=== PATIENT | female | born 1955 | race Caucasian/White ===

== ENCOUNTER → 2016-11-18 | Outpatient (CLI) | payer OTHER ==
[~2016-11-18] MED LIST: ASPI-321 OR; ATOR-26 PO; CARV25TA PO; CITA40TA12 PO; CLOP1TAB15 PO; FERR1TAB13 PO; GEMF600T3 PO; HYDR12.55 PO; ISOS60TA25 PO; LISI-729 PO; METF500T PO; NTRGSL/4 UT; PANT40TA PO; SERT1TAB68 PO; SERT25TA PO; ZCR40 PO; [UNRECOGNIZED DRUG - CODE] PO; [UNRECOGNIZED DRUG - CODE] PO
== END | disposition home or self-care (01) ==
LOC: C.PAPS 11:14
PROVIDERS: ATTEND Physician Assistant
DX: Z01.419 Encounter for gynecological examination (general) (routine) without abnormal findings (principal); N95.2 Postmenopausal atrophic vaginitis

== ENCOUNTER 2016-11-22 18:57 | Emergency (ER) | payer OTHER ==
[~2016-11-22] VITALS: Ht 157.5 cm; Wt 71.8 kg
[~2016-11-22 18:57] MED LIST changes: -ATOR-26 PO; -CITA40TA12 PO; -HYDR12.55 PO; -LISI-729 PO; -PANT40TA PO
[2016-11-22 19:09] VITALS: Ht 157.5 cm; Wt 71.8 kg
--- NOTE | 2016-11-22 19:24 | EMERGENCY ROOM VISIT NOTE ---
History Report prepared by Giovani: Reina Moore Under the Supervision of: Dr. Akin Jin M.D. First contact with patient: 19:11 Chief Complaint: CARDIAC ASSESSMENT Stated Complaint: WEAKNESS, DIAPHORETIC History of Present Illness The patient is a 61 year old female who presents to the Emergency Room with complaints of needing a cardiac assessment. She was brought to the ED via EMS. She reports she started to feel "faint, weak and really hot" earlier this evening while at the [employer] in [place]. She does not believe she lost consciousness and states she feels somewhat better here in the ED. She admits she drank approximately 1/2 of an alcoholic beverage this evening. EMS administered IV saline in the field and notes the patient was diaphoretic when they arrived. The patient admits to having a pacemaker/defibrillator in place currently for a history of atrial fibrillation. She reports she felt "fine" earlier today and has been eating and drinking fluids normally. She denies any chest pain or abdominal pain. Source of History: patient Onset: [employer] Position: other (global) Timing: resolved Associated Symptoms: + diaphoresis, + fatigue, + weakness, No LOC, No abdominal pain, No chest pain Review of Systems All systems have been listed, reviewed, and are negative other than those previously mentioned. Please see Additional Medical History Sheet. Past Medical & Surgical Medical Problems: (1) Alcohol Abuse-Unspec (2) Anxiety State Nos (3) Atrial Fibrillation (4) Cardiac Arrest (5) Coron Atheroscler Nos Type Vessel, [place] Or [place] (6) Depressive Disorder Nec (7) Diab Syeda Wo Compl, Type Ii Or Unspec Type, Not Uncntrld (8) Hyperlipidemia Nec/Nos (9) Hypertension Nos (10) Lumbago (11) Old Myocardial Infarct (12) Unstable angina Surgical Problems: (1) History of cholecystectomy Social History Problems: (1) Congestive Heart Failure Nos Family History Patient reports no known family medical history. Social History Smoking Status: Never Smoker Alcohol Use: occasionally Drug Use: none Marital Status: Housing Status: lives with family Occupation Status: unemployed Current/Historical Medications Scheduled Aspirin (Aspirin Adult Low Strengt), 81 MG OR DAILY Atorvastatin (Lipitor), 80 MG PO DAILY Carvedilol (Coreg), 25 MG PO BIDM Citalopram Hydrobromide (Celexa), 40 MG PO DAILY Clopidogrel (Plavix), 75 MG PO DAILY Gemfibrozil (Lopid), 600 MG PO BID Hydrochlorothiazide (Hydrochlorothiazide), 12.5 TAB PO DAILY Isosorbide Mononitrate Ext Rel (Imdur Ext Rel), 120 MG PO QAM Lisinopril (Zestril), 5 MG PO DAILY Metformin Hcl (Glucophage), 500 MG PO BID Nitroglycerin (Nitrostat), 0.4 MG UT PRN Pantoprazole (Protonix), 40 MG PO DAILY Sertraline (Zoloft), 25 MG PO DAILY Sertraline Hcl (Zoloft), 100 MG PO DAILY Scheduled PRN Hydroxyzine Hcl (hydrOXYzine), 25 MG PO TID PRN for UNDECIDED Allergies Coded Allergies: Latex1 -Allergic Contact Dermititis (Verified Allergy, Mild, HIVES, ) Adhesives (Verified Allergy, Unknown, `, 06/05/16) Penicillin V (Verified Allergy, Unknown, 0, 06/05/16) Aspirin (Verified Adverse Reaction, Mild, ` STOMACH UPSET WITH 325 MG TABLET, 06/05/16) Physical Exam Vital Signs Date Time Temp Pulse Resp B/P Pulse Ox O2 Delivery O2 Flow Rate FiO2 11/22/16 21:58 36.5 61 21 118/60 96 11/22/16 21:46 118/60 11/22/16 21:40 106/52 11/22/16 21:19 61 21 96 11/22/16 21:16 91/56 11/22/16 21:14 62 12 96 11/22/16 21:13 97/54 11/22/16 21:09 62 25 97 11/22/16 21:04 63 19 97 11/22/16 21:01 102/54 11/22/16 20:59 62 20 97 11/22/16 20:54 68 16 97 11/22/16 20:53 112/59 11/22/16 20:44 68 22 94 11/22/16 20:43 119/75 11/22/16 20:42 88/53 11/22/16 20:41 109/55 11/22/16 20:40 61 18 109/55 82 88/53 72 119/75 11/22/16 20:39 62 15 98 11/22/16 20:34 62 17 98 11/22/16 20:33 99 Room Air 11/22/16 20:29 103/58 11/22/16 20:27 67 14 99 11/22/16 20:22 63 14 97 11/22/16 20:07 60 15 96 11/22/16 20:02 65 12 98 11/22/16 20:01 102/54 11/22/16 19:57 61 16 97 11/22/16 19:52 60 15 97 11/22/16 19:47 68 21 95 11/22/16 19:46 100/54 11/22/16 19:42 60 16 95 11/22/16 19:41 99/54 11/22/16 19:37 63 20 89/51 98 11/22/16 19:36 90/57 11/22/16 19:32 61 14 96 11/22/16 19:31 94/50 11/22/16 19:27 62 15 96 11/22/16 19:26 103/61 11/22/16 19:26 93 Room Air 11/22/16 19:24 97/62 11/22/16 19:22 56 17 100/54 96 11/22/16 19:17 61 15 96 11/22/16 19:14 93 Room Air 11/22/16 19:12 62 19 95 11/22/16 19:09 36.5 71 18 115/59 93 Room Air 11/22/16 19:07 63 25 94 11/22/16 19:06 66 11/22/16 19:04 115/59 Physical Exam GENERAL: Patient awake, alert, oriented x 3. Patient follows commands. Patient does not appear toxic. Patient is adequately hydrated and well- nourished. SKIN: No erythema, pallor, cyanosis or rash HEENT: Normal head, pupils equal, reactive to light and accommodation. Ears normal. Upper dentures in place. Oral cavity and posterior pharynx appear otherwise normal. Neck: Without adenopathy, no neck vein distention. LUNGS: Clear to auscultation. No wheezes, no rales, no rhonchi. HEART: No murmurs. No gallops. No rubs. Pacemaker in left upper chest. ABDOMEN: Well healed midline abdominal scar. No masses, no rebound, no hepatomegaly or splenomegaly. EXTREMITIES: No signs of trauma. No pedal or pretibial edema. No calf or thigh tenderness. NEUROLOGIC: Cranial nerves II-XII within normal limits. No gross motor sensory function deficits. Medical Decision & Procedures ER Provider Diagnostic Interpretation: This X-Ray was reviewed and interpreted by myself and the radiologist. CHEST 2 VIEWS ROUTINE IMPRESSION: Chronic and postoperative change. No acute process. Electronically signed by: Kit Burt M.D. 11/22/2016 8:25 PM Laboratory Results 11/22/16 19:22 11/22/16 19:22 Test 11/22/16 19:22 11/22/16 20:50 Red Blood Count 3.79 M/uL (4.2-5.4) Mean Corpuscular Volume 84.7 fL (80-100) Mean Corpuscular Hemoglobin 29.6 pg (25-34) Mean Corpuscular Hemoglobin Concent 34.9 g/dl (32-36) RDW Standard Deviation 39.3 fL (36.4-46.3) RDW Coefficient of Variation 12.7 % (11.5-14.5) Mean Platelet Volume 10.2 fL (7.4-10.4) Anion Gap 12.0 mmol/L (3-11) Est Creatinine Clear Calc Drug Dose 55.1 ml/min Estimated GFR () 72.0 Estimated GFR (Non- 62.2 BUN/Creatinine Ratio 11.6 (10-20) Calcium Level 7.8 mg/dl (8.5-10.1) Troponin I < 0.015 ng/ml (0-0.045) Urine Color YELLOW Urine Appearance CLEAR (CLEAR) Urine pH 5.5 (4.5-7.5) Urine Specific [place] 1.010 (1.000-1.030) Urine Protein NEG (NEG) Urine Glucose (UA) NEG (NEG) Urine Ketones NEG (NEG) Urine Occult Blood NEG (NEG) Urine Nitrite POS (NEG) Urine Bilirubin NEG (NEG) Urine Urobilinogen NEG (NEG) Urine Leukocyte Esterase SMALL (NEG) Urine WBC (Auto) 5-10 /hpf (0-5) Urine RBC (Auto) 0-4 /hpf (0-4) Urine Hyaline Casts (Auto) 1-5 /lpf (0-5) Urine Epithelial Cells (Auto) 20-30 /lpf (0-5) Urine Bacteria (Auto) 4+ (NEG) Laboratory results as stated above per my review. Medications Administered Medications (Trade) Dose Ordered Sig/Alo Route Start Time Stop Time Status Last Admin Dose Admin Sodium Chloride (Nss 1000ml) 1,000 ml @ 1,000 mls/hr Q1H ONCE IV 11/22/16 19:45 11/22/16 20:44 DC 11/22/16 19:45 1,000 MLS/HR ECG Indication: weakness Rate (beats per minute): 63 Rhythm: other (paced rhythm) Findings: no acute ischemic change, no ectopy ED Course 1911: Past medical records reviewed. The patient was evaluated in room B9. A complete history and physical examination was performed. 1944: NSS 1000 ml @ 1000 mls/hr IV. 2004: I reevaluated the patient. She is feeling about the same and getting 1 liter of fluids. 2112: I reevaluated the patient. She is about the same. Her blood pressure is still relatively low. 2154: Upon reevaluation, the patient appeared to have improvement of her symptoms. I discussed today's findings with the patient. She verbalized agreement of the treatment plan. She was discharged home. Medical Decision Etiologies such as cardiac ischemia, aortic dissection, pulmonary embolism, pneumonia, pneumothorax, musculoskeletal, infections, pericarditis, myocarditis , esophageal rupture, gastrointestinal, dehydration, arrhythmia, metabolic disorder, accidental overdose as well as others were entertained. Multiple labs, EKG and imaging were obtained. Please see above. A urine culture is pending. The patient was given IV fluids. Blood pressure was rechecked multiple times. He BP remains slightly low but she was not orthostatic. An ambulatory trial was successful and the patient was able to walk around the emergency department without feeling lightheaded. I'm concerned that she may have accidentally taken more blood pressure medication but in either case I will take her off the lisinopril for now. The patient will require follow-up by her family physician within the near future to recheck her blood pressure. The patient has no evidence of an acute neurologic event or an acute cardiac event. Impression Primary Impression: Hypotension due to medication Scribe Attestation The scribe's documentation has been prepared under my direction and personally reviewed by me in its entirety. I confirm that the note above accurately reflects all work, treatment, procedures, and medical decision making performed by me. Departure Information Dispostion Home / Self-Care Referrals Tg Solis PA-C (PCP) Patient Instructions [facility] Additional Instructions Stop lisinopril. Follow-up with your family physician within the next 4 days. REST Continue your other medications as prescribed.
[2016-11-22 19:26] VITALS: O2SAT 93
[2016-11-22 19:32] LABS: HEMATOCRIT 32.1 % (37-47); MEAN CELL VOLUME 84.7 fL (80-100); MEAN CORPUSCULAR HEMOGLOBIN 29.6 pg (25-34); MEAN CORPUSCULAR HGB CONC 34.9 g/dl (32-36); MEAN PLATELET VOLUME 10.2 fL (7.4-10.4); PLATELET COUNT 136 K/uL (130-400); RED BLOOD COUNT 3.79 M/uL (4.2-5.4); WHITE BLOOD COUNT 4.74 K/uL (4.8-10.8)
[2016-11-22] MEDS ORDERED: SODIUM CHLORIDE 0.9% 1000ML 1,000 ML IV ONE (19:45)
[2016-11-22 19:50] LABS: BLOOD UREA NITROGEN 11 mg/dl (7-18); BUN/CREATININE RATIO 11.6 (10-20); CALCIUM 7.8 mg/dl (8.5-10.1); CARBON DIOXIDE 21 mmol/L (21-32); CHLORIDE 109 mmol/L (98-107); CREATININE 0.97 mg/dl (0.60-1.20); GLUCOSE 122 mg/dl (70-99); POTASSIUM 3.4 mmol/L (3.5-5.1); SODIUM 142 mmol/L (136-145)
[2016-11-22] MEDS ORDERED: HYDR12.55 PO (20:22)
[2016-11-22] MEDS ORDERED: CITA40TA12 PO (20:25)
--- NOTE | 2016-11-22 20:26 | DIAGNOSTIC IMAGING REPORT ---
CHEST 2 VIEWS ROUTINE CLINICAL HISTORY: CHEST PAIN dyspnea COMPARISON STUDY: 04/20/2016 FINDINGS: Mild emphysematous change. Chronic bilateral fibrotic change. Permanent bipolar cardiac pacemaker/defibrillator. IMPRESSION: Chronic and postoperative change. No acute process. Electronically signed by: Kit Burt M.D. 11/22/2016 8:25 PM Dictated Date/Time: 11/22/2016 8:24 PM
[2016-11-22] MEDS ORDERED: ATOR-26 PO (20:29)
[2016-11-22] MEDS ORDERED: LISI-729 PO (20:32)
[2016-11-22] MEDS ORDERED: PANT40TA PO (20:38)
[2016-11-22 21:06] LABS: MANUAL MICROSCOPIC REQUIRED? NO; REVIEW REQ? NO; URINE APPEARANCE CLEAR (CLEAR); URINE BILIRUBIN NEG (NEG); URINE COLOR YELLOW; URINE EPITHELIAL CELL AUTO 20-30 /lpf (0-5); URINE NITRITE POS (NEG); URINE PH 5.5 (4.5-7.5); UROBILINOGEN NEG (NEG); ZZUR CULT IF INDIC CLEAN CATCH YES
[2016-11-22 21:58] VITALS: BP 118/60; PULSE 61; TEMP 36.5; O2SAT 96
== END 2016-11-22 21:59 | disposition home or self-care (01) ==
LOC: EDBD 18:57 → C.EDB 18:58
DX: I10 Essential (primary) hypertension (principal); F41.9 Anxiety disorder, unspecified; I48.91 Unspecified atrial fibrillation; I46.9 Cardiac arrest, cause unspecified; E11.9 Type 2 diabetes mellitus without complications; E78.5 Hyperlipidemia, unspecified; I25.2 Old myocardial infarction; Z79.82 Long term (current) use of aspirin

== ENCOUNTER → 2016-12-03 | Outpatient (CLI) | payer OTHER ==
[~2016-12-03] MED LIST changes: +ATOR-26 PO; +CITA40TA12 PO; -FERR1TAB13 PO; +HYDR12.55 PO; +LISI-729 PO; +PANT40TA PO; -ZCR40 PO; -[UNRECOGNIZED DRUG - CODE] PO
--- NOTE | 2016-12-03 15:47 | MAMMOGRAPHY REPORT ---
BILATERAL DIGITAL SCREENING MAMMOGRAM WITH CAD: 12/03/2016 CLINICAL HISTORY: Routine screening. Patient has no complaints. TECHNIQUE: Bilateral CC, MLO and repeat left MLO views with more anterior compression were obtained. Current study was also evaluated with a Computer Aided Detection (CAD) system. COMPARISON: Comparison is made to exams dated: 11/08/2015 mammogram and 04/15/2011 mammogram - [facility]. BREAST COMPOSITION: There are scattered areas of fibroglandular density in both breasts. FINDINGS: A pacemaker projects over the left superior breast and pectoralis muscle on the MLO view. There are mild vascular calcifications and benign rim calcifications bilaterally. Stable asymmetry in the 12:00 right breast. No new suspicious mass, architectural distortion or cluster of microcal cifications is seen. IMPRESSION: ACR BI-RADS CATEGORY 1: NEGATIVE There is no mammographic evidence of malignancy. A 1 year screening mammogram is recommended. The p atient will receive written notification of the results. Approximately 10% of breast cancers are not detected with mammography. A negative mammographic repor t should not delay biopsy if a clinically suggestive mass is present. Mary Garcia M.D. ay/:12/03/2016 13:47:10 Contact Clerk: Salima HARRIS(Nury)(Ishmael), [facility] letter sent: Normal 1/2 BI-RADS Code: ACR BI-RADS Category 1: Negative
== END | disposition home or self-care (01) ==
LOC: C.MAMM 10:01
PROVIDERS: ATTEND Physician Assistant
DX: Z12.31 Encounter for screening mammogram for malignant neoplasm of breast (principal)

== ENCOUNTER → 2016-12-23 | Outpatient (CLI) | payer OTHER | END | disposition home or self-care (01) | LOC: C.MAMM 12:32 | PROVIDERS: ATTEND Physician Assistant | DX: E28.39 Other primary ovarian failure (principal); M85.88 Other specified disorders of bone density and structure, other site; M81.0 Age-related osteoporosis without current pathological fracture ==

== ENCOUNTER 2017-09-29 11:12 | Emergency (ER) | payer OTHER ==
[~2017-09-29] VITALS: Ht 157.5 cm; Wt 67.8 kg
[2017-09-29 11:17] VITALS: TEMP 36.4; O2SAT 95; Ht 157.5 cm; Wt 67.8 kg
[2017-09-29] MEDS ORDERED: ONDANSETRON INJ 2 MG/ML 2 ML VIAL IV STA (11:37)
[2017-09-29] MEDS ORDERED: SODIUM CHLORIDE 0.9% 1000ML 1,000 ML IV STA ×2 (11:37)
[2017-09-29 11:53] LABS: BASO % 0.4 %; BASO ABS # 0.03 K/uL (0-0.2); EOS % 3.8 %; EOS ABS # 0.28 K/uL (0-0.5); HEMATOCRIT 35.5 % (37-47); HEMOGLOBIN 12.2 g/dL (12.0-16.0); IG# 0.02 K/uL (0.00-0.02); LYMPH % 12.6 %; LYMPH ABS # 0.93 K/uL (1.2-3.4); MEAN CELL VOLUME 85.1 fL (80-100); MEAN CORPUSCULAR HEMOGLOBIN 29.3 pg (25-34); MEAN CORPUSCULAR HGB CONC 34.4 g/dl (32-36); MEAN PLATELET VOLUME 10.3 fL (7.4-10.4); MONO % 7.2 %; MONO ABS # 0.53 K/uL (0.11-0.59); NEUT % 75.7 %; NEUT ABS # 5.57 K/uL (1.4-6.5); PLATELET COUNT 198 K/uL (130-400); RED CELL DISTRIBUTION WIDTH SD 39.8 fL (36.4-46.3); WHITE BLOOD COUNT 7.36 K/uL (4.8-10.8)
[2017-09-29 12:05] LABS: PTT PATIENT 23.3 SECONDS (21.0-31.0)
[2017-09-29 12:09] LABS: ALBUMIN 3.5 gm/dl (3.4-5.0); ALT/SGPT 23 U/L (12-78); BLOOD UREA NITROGEN 12 mg/dl (7-18); CALCIUM 9.2 mg/dl (8.5-10.1); CARBON DIOXIDE 24 mmol/L (21-32); CREATININE 1.11 mg/dl (0.60-1.20); GLUCOSE 157 mg/dl (70-99); POTASSIUM 3.8 mmol/L (3.5-5.1); SODIUM 134 mmol/L (136-145)
--- NOTE | 2017-09-29 12:11 | DIAGNOSTIC IMAGING REPORT ---
CHEST ONE VIEW PORTABLE CLINICAL HISTORY: 62 years-old Female presenting with EVALUATE ALTERED MENTAL STATUS/WEAKNESS. TECHNIQUE: Portable upright AP view of the chest was obtained. COMPARISON: 11/22/2016. FINDINGS: Left subclavian implanted cardiac defibrillator with leads to the right atrium, right ventricular apex, and coronary sinus. Additional abandoned right ventricular apex pacer wire. Atherosclerosis of aortic arch. Cardiac silhouette top normal in size. Mild pulmonary vascular prominence with diffusely coarsened lung markings similar to prior exam. No superimposed opacity. No large effusion or pneumothorax. Osseous structures normal. Upper abdomen normal. IMPRESSION: 1. Top normal cardiac size with pulmonary vascular prominence and coarsened lung markings similar to prior exam. This could suggest mild volume overload or chronic lung disease. No superimposed infiltrate to suggest pneumonia. Electronically signed by: Neftali Zamarripa M.D. 09/29/2017 12:09 PM Dictated Date/Time: 09/29/2017 12:08 PM
[2017-09-29] MEDS ORDERED: SERT50TA PO (12:19)
[2017-09-29] MEDS ORDERED: EZET10TA63 PO (12:19)
[2017-09-29] MEDS ORDERED: HYDR1CAP85 PO (12:19)
[2017-09-29 12:20] LABS: ALKALINE PHOSPHATASE 104 U/L (45-117); AST/SGOT 18 U/L (15-37); TOTAL PROTEIN 7.6 gm/dl (6.4-8.2)
[2017-09-29] MEDS ORDERED: OPTIRAY 320 IV PRN (12:45)
--- NOTE | 2017-09-29 13:57 | DIAGNOSTIC IMAGING REPORT ---
CT ANGIOGRAM OF THE CHEST CLINICAL HISTORY: Chest discomfort. Sudden onset of nausea and dizziness. COMPARISON STUDY: 06/14/2009 TECHNIQUE: Following the IV administration of 119 mL of Optiray-320, CT angiogram of the thorax was performed from the thoracic inlet to the lung bases utilizing the pulmonary embolus protocol. Images are reviewed in the axial, sagittal, and coronal planes. IV contrast was administered without complication. MIP imaging was performed. A dose lowering technique was utilized adhering to the principles of ALARA. CT DOSE: 414.08 mGycm FINDINGS: There is a multinodular thyroid gland. There is a left subclavian pacer/defibrillator present. No pathologically enlarged axillary mediastinal or hilar lymph nodes were visualized. There was no evidence of thoracic aortic dilatation. There are coronary artery calcifications present. There were no pulmonary artery filling defects to indicate acute pulmonary embolism. No pleural effusions are visualized. There is an 8 mm fat-containing right lower lobe pulmonary nodule, unchanged from 2008. This is felt to be benign. There are patchy bilateral pulmonary airspace opacities, and there is septal interstitial edema. The findings likely represent pulmonary edema superimposed on interstitial lung disease, or an acute bilateral pneumonitis, superimposed on chronic lung disease. Clinical and radiographic follow-up is recommended. IMPRESSION: 1. No evidence of acute pulmonary embolism 2. Interstitial thickening/edema with patchy airspace opacities. The findings likely represent either pulmonary edema superimposed on chronic interstitial lung disease, or an acute bilateral pneumonitis superimposed on chronic interstitial lung disease. Clinical and radiographic follow-up is recommended. Electronically signed by: Vivek Alexander M.D. 09/29/2017 1:56 PM Dictated Date/Time: 09/29/2017 1:49 PM
--- NOTE | 2017-09-29 15:47 | EMERGENCY ROOM VISIT NOTE ---
History Report prepared by Giovani: Nissa Calderón Under the Supervision of: Dr. Janes Pedro D.O. First contact with patient: 11:28 Chief Complaint: NAUSEA Stated Complaint: NEAR SYNCOPE Nursing Triage Summary: pt presents to ed via bls. pt was shopping and had sudden onset of nausea and dizziness. pt sat down - pt denies any falling or loc. pt reports she continues to feel "woozy" at this time. pt has pacemaker/defibrillator. History of Present Illness The patient is a 62 year old female who presents to the Emergency Room with complaints of a sudden onset of nausea and dizziness beginning just prior to arrival. The patient states she was shopping and walking around when she started to feel nauseous which was followed by feeling lightheaded. The patient states her nausea slightly resided on her way to the ED but when she started getting blood work she started to get very nauseous again. The patient has a history of a sudden cardiac arrest. She has a [employer] pacemaker/ defibrillator. The patient has a history of diabetes. She is unsure of how her glucose levels have been. Pt denies headache, change in vision, fevers, chest pain, shortness of breath, abdominal pain, weakness, vomiting, diarrhea, pain with urination, and melena. Patient denies hypertension, hyperlipidemia, CAD, history of sudden at a young age, and smoking. Patient denies swelling of calves, recent trips, history of immobilization or recent surgery, prior history of DVT, hemoptysis, history of malignancy, history of smoking, or control/estrogen use. Source of History: patient Onset: just prior to arrival Position: other (generalized) Quality: other (nausea and lightheadedness) Timing: other (sudden) Associated Symptoms: + nausea, No fevers, No chest pain, No SOB, No vomiting , No urinary symptoms, No weakness, No numbness Review of Systems See HPI for pertinent positives & negatives. A total of 10 systems reviewed and were otherwise negative. Past Medical & Surgical Medical Problems: (1) Alcohol Abuse-Unspec (2) Anxiety State Nos (3) Atrial Fibrillation (4) Cardiac Arrest (5) Coron Atheroscler Nos Type Vessel, [place] Or Graft (6) Depressive Disorder Nec (7) Diab Syeda Wo Compl, Type Ii Or Unspec Type, Not Uncntrld (8) Hyperlipidemia Nec/Nos (9) Hypertension Nos (10) Lumbago (11) Old Myocardial Infarct (12) Unstable angina Surgical Problems: (1) History of cholecystectomy Social History Problems: (1) Congestive Heart Failure Nos Family History Patient reports no known family medical history. Social History Smoking Status: Never Smoker Alcohol Use: occasionally Drug Use: none Marital Status: Housing Status: lives with family Occupation Status: unemployed Current/Historical Medications Scheduled Atorvastatin (Lipitor), 80 MG PO DAILY Carvedilol (Coreg), 25 MG PO BIDM Clopidogrel (Plavix), 75 MG PO DAILY Ezetimibe (Zetia), 10 MG PO DAILY Hydrochlorothiazide (Hydrochlorothiazide), 25 TAB PO DAILY Isosorbide Mononitrate Ext Rel (Imdur Ext Rel), 120 MG PO QAM Metformin Hcl (Glucophage), 500 MG PO BID Nitroglycerin (Nitrostat), 0.4 MG UT PRN Pantoprazole (Protonix), 40 MG PO DAILY Sertraline (Zoloft), 50 MG PO DAILY Scheduled PRN Hydroxyzine Pamoate (Vistaril), 25 MG PO TID PRN for Anxiety/Agitation Allergies Coded Allergies: Latex1 -Allergic Contact Dermititis (Verified Allergy, Mild, HIVES, ) Adhesives (Verified Allergy, Unknown, `, 09/29/17) Penicillin V (Verified Allergy, Unknown, 0, 09/29/17) Aspirin (Verified Adverse Reaction, Mild, ` STOMACH UPSET WITH 325 MG TABLET, 09/29/17) Physical Exam Vital Signs Date Time Temp Pulse Resp B/P (MAP) Pulse Ox O2 Delivery O2 Flow Rate FiO2 09/29/17 14:52 70 18 110/57 96 Room Air 09/29/17 14:05 77 16 115/58 09/29/17 13:08 84 16 104/57 09/29/17 12:45 76 16 109/57 76 118/60 80 115/68 09/29/17 11:19 68 09/29/17 11:17 36.4 67 18 106/66 95 Room Air 09/29/17 11:17 95 Room Air Physical Exam GENERAL: Sitting up in bed, alert, disheveled appearing, well nourished, no distress, non-toxic EYE EXAM: normal conjunctiva. PERRL and EOM's intact. OROPHARYNX: no exudate, no erythema, lips, buccal mucosa, and tongue normal and mucous membranes are moist NECK: supple, no nuchal rigidity, no adenopathy, non-tender LUNGS: Clear to auscultation. Normal chest wall mechanics CHEST: Pacemaker in left upper chest wall. HEART: no murmurs, S1 normal and S2 normal ABDOMEN: abdomen soft, non-tender, normo-active bowel sounds, no masses, no rebound or guarding. BACK: Back is symmetrical on inspection and there is no deformity, no midline tenderness, no CVA tenderness. SKIN: no rashes and no bruising UPPER EXTREMITIES: upper extremities are grossly normal. LOWER EXTREMITIES: No pitting edema. NEURO EXAM: Normal sensorium, cranial nerves II-XII intact, normal speech, no weakness of arms, no weakness of legs. No drift. Finger to nose intact. Gross sensation intact. Medical Decision & Procedures ER Provider Diagnostic Interpretation: Radiology results as stated below per my review and the radiologist's interpretation: CT ANGIOGRAM OF THE CHEST FINDINGS: There is a multinodular thyroid gland. There is a left subclavian pacer/defibrillator present. No pathologically enlarged axillary mediastinal or hilar lymph nodes were visualized. There was no evidence of thoracic aortic dilatation. There are coronary artery calcifications present. There were no pulmonary artery filling defects to indicate acute pulmonary embolism. No pleural effusions are visualized. There is an 8 mm fat-containing right lower lobe pulmonary nodule, unchanged from 2009. This is felt to be benign. There are patchy bilateral pulmonary airspace opacities, and there is septal interstitial edema. The findings likely represent pulmonary edema superimposed on interstitial lung disease, or an acute bilateral pneumonitis, superimposed on chronic lung disease. Clinical and radiographic follow-up is recommended. IMPRESSION: 1. No evidence of acute pulmonary embolism 2. Interstitial thickening/edema with patchy airspace opacities. The findings likely represent either pulmonary edema superimposed on chronic interstitial lung disease, or an acute bilateral pneumonitis superimposed on chronic interstitial lung disease. Clinical and radiographic follow-up is recommended. Electronically signed by: Vivek Alexander M.D. CHEST ONE VIEW PORTABLE FINDINGS: Left subclavian implanted cardiac defibrillator with leads to the right atrium, right ventricular apex, and coronary sinus. Additional abandoned right ventricular apex pacer wire. Atherosclerosis of aortic arch. Cardiac silhouette top normal in size. Mild pulmonary vascular prominence with diffusely coarsened lung markings similar to prior exam. No superimposed opacity. No large effusion or pneumothorax. Osseous structures normal. Upper abdomen normal. IMPRESSION: 1. Top normal cardiac size with pulmonary vascular prominence and coarsened lung markings similar to prior exam. This could suggest mild volume overload or chronic lung disease. No superimposed infiltrate to suggest pneumonia. Electronically signed by: Neftali Zamarripa M.D. Laboratory Results 09/29/17 11:30 Red Blood Count 4.17, Mean Corpuscular Volume 85.1, Mean Corpuscular Hemoglobin 29.3, Mean Corpuscular Hemoglobin Concent 34.4, Mean Platelet Volume 10.3, Neutrophils (%) (Auto) 75.7, Lymphocytes (%) (Auto) 12.6, Monocytes (%) (Auto) 7.2, Eosinophils (%) (Auto) 3.8, Basophils (%) (Auto) 0.4, Neutrophils # (Auto) 5.57, Lymphocytes # (Auto) 0.93, Monocytes # (Auto) 0.53, Eosinophils # (Auto) 0.28, Basophils # (Auto) 0.03 09/29/17 11:30 Test 09/29/17 11:30 09/29/17 14:47 White Blood Count 7.36 K/uL (4.8-10.8) Red Blood Count 4.17 M/uL (4.2-5.4) Hemoglobin 12.2 g/dL (12.0-16.0) Hematocrit 35.5 % (37-47) Mean Corpuscular Volume 85.1 fL (80-100) Mean Corpuscular Hemoglobin 29.3 pg (25-34) Mean Corpuscular Hemoglobin Concent 34.4 g/dl (32-36) Platelet Count 198 K/uL (130-400) Mean Platelet Volume 10.3 fL (7.4-10.4) Neutrophils (%) (Auto) 75.7 % Lymphocytes (%) (Auto) 12.6 % Monocytes (%) (Auto) 7.2 % Eosinophils (%) (Auto) 3.8 % Basophils (%) (Auto) 0.4 % Neutrophils # (Auto) 5.57 K/uL (1.4-6.5) Lymphocytes # (Auto) 0.93 K/uL (1.2-3.4) Monocytes # (Auto) 0.53 K/uL (0.11-0.59) Eosinophils # (Auto) 0.28 K/uL (0-0.5) Basophils # (Auto) 0.03 K/uL (0-0.2) RDW Standard Deviation 39.8 fL (36.4-46.3) RDW Coefficient of Variation 13.0 % (11.5-14.5) Immature Granulocyte % (Auto) 0.3 % Immature Granulocyte # (Auto) 0.02 K/uL (0.00-0.02) Prothrombin Time 10.1 SECONDS (9.0-12.0) Prothromb Time International Ratio 1.0 (0.9-1.1) Activated Partial Thromboplast Time 23.3 SECONDS (21.0-31.0) Partial Thromboplastin Ratio 0.9 D-Dimer 530 ug/L FEU (0-500) Anion Gap 9.0 mmol/L (3-11) Est Creatinine Clear Calc Drug Dose 46.2 ml/min Estimated GFR () 60.8 Estimated GFR (Non- 52.4 BUN/Creatinine Ratio 11.2 (10-20) Calcium Level 9.2 mg/dl (8.5-10.1) Magnesium Level 1.6 mg/dl (1.8-2.4) Total Bilirubin 0.9 mg/dl (0.2-1) Direct Bilirubin 0.2 mg/dl (0-0.2) Aspartate Amino Transf (AST/SGOT) 18 U/L (15-37) Alanine Aminotransferase (ALT/SGPT) 23 U/L (12-78) Alkaline Phosphatase 104 U/L (45-117) Total Protein 7.6 gm/dl (6.4-8.2) Albumin 3.5 gm/dl (3.4-5.0) Thyroid Stimulating Hormone (TSH) 3.010 uIu/ml (0.300-4.500) Troponin I < 0.015 ng/ml (0-0.045) Laboratory results per my review. Medications Administered Medications (Trade) Dose Ordered Sig/Alo Route Start Time Stop Time Status Last Admin Dose Admin Sodium Chloride 1,000 ml @ 999 mls/hr Q1H1M STAT IV 09/29/17 11:37 09/29/17 12:37 DC 09/29/17 11:48 999 MLS/HR Sodium Chloride 1,000 ml @ 999 mls/hr Q1H1M STAT IV 09/29/17 11:37 09/29/17 12:37 DC 09/29/17 11:48 999 MLS/HR Ondansetron HCl (Zofran Inj) 4 mg NOW STAT IV 09/29/17 11:37 09/29/17 11:39 DC 09/29/17 11:48 4 MG ECG Per My Interpretation Indication: nausea Rate (beats per minute): 69 Rhythm: other (atrail paced, flipped T-wave in anterior and lateral leads) Findings: Q waves (Septal), left axis deviation, other (left axis de) Comparison ECG Date: 11/22/16 Change: Septal Q-wave is new ED Course ED COURSE: Vital signs were reviewed and showed normal The patients medical record was reviewed The above diagnostic studies were performed and reviewed. ED treatments and interventions as stated above. 1129: The patient was evaluated in room B11B. A complete history and physical examination was performed. 1137: Ordered Zofran Inj 4 mg IV, Sodium Chloride 1000 ml @ 999 mls/hr IV, Sodium Chloride 1000 ml @ 999 mls/hr IV. 1302: [employer] hearing aid technician identified no issued with the patient's pacer. 1338: The patient is at CT. 1430: I reviewed the patient's case with Dr. Dailey-Cardiology. He recommends sending the patient home for outpatient follow up. 1545: Upon reevaluation, the patient is resting comfortably.I discussed my findings with the patient and she understands and agrees with the treatment plan. Based on the patients age, coexisting illnesses, exam and lab findings the decision to treat as an outpatient was made. The patient remained stable while under my care. The patient appeared well at the time of discharge. Medical Decision Differential diagnosis includes etiologies such as benign positional vertigo, dehydration, hypovolemia, anemia, tumor, infection, hypoglycemia, electrolyte abnormalities, cardiac sources, intracerebral event, toxicologic, neurologic, as well as others were entertained. Patient is a 62-year-old female who presents the ER for further nausea associated with near syncopal episode. Patient notes that she was out shopping and became very nauseous. At that time she almost passed out. She had another episode of this while in the ER. EKGs were unchanged from previous and had cardiology review these along with her case. CBC along with BMP, LFTs, bilirubin, TSH and troponin 2 were negative. D-dimer was elevated. CT of the chest showed questionable infiltrate/pneumonia versus pulmonary edema. Patient has absolutely no respiratory symptoms. She has no new cough or change in sputum. Will not treat at this time without a leukocytosis fever or change in respiratory symptoms. Recommended a repeat chest x-ray within the next 2-3 days. At this time with an unremarkable pacer interrogation, 2 negative troponins, review of case with cardiology I favor that the majority of her symptoms were vasovagal in nature. She has absolutely no abdominal pain. Patient was discharged follow-up with PCP as an outpatient. Discussed with Pt concerning signs and symptoms to watch out for. Pt was instructed to follow up with their PCP and discussed with the patient their option to return to the ED at anytime for persistent or worsening symptoms. The appropriate anticipatory guidance and out-patient management, including indications for return to the emergency department, were explained at length to the patient and understood. Medication Reconcilliation Current Medication List: was personally reviewed by me Blood Pressure Screening Patient's blood pressure: Normal blood pressure Consults Time Called: 1415 Consulting Physician: Dr. SantacruzCardiology Returned Call: 1430 I reviewed the patient's case with Dr. SantacruzCardiology. He recommends sending the patient home for outpatient follow up. Impression Primary Impression: Near syncope Additional Impression: Nausea Scribe Attestation The scribe's documentation has been prepared under my direction and personally reviewed by me in its entirety. I confirm that the note above accurately reflects all work, treatment, procedures, and medical decision making performed by me. Departure Information Dispostion Home / Self-Care Referrals Tg Solis PA-C (PCP) Forms HOME CARE DOCUMENTATION FORM, IMPORTANT VISIT INFORMATION Patient Instructions ED Nausea Vomiting, ED Near Syncope Vasovagal, [facility] Additional Instructions Please follow up with your primary care doctor with in the next 24 hours. Any worsening of your symptoms, please return to the ED immediately. This includes any fevers greater than 100.4, worsening pain, chest pain, shortness breath, persistent nausea, vomiting, unable to eat or drink, or any other concerning signs or symptoms from your standpoint. Problem Qualifiers
[2017-09-29 15:55] VITALS: BP 125/65; PULSE 76; O2SAT 98
== END 2017-09-29 15:54 | disposition home or self-care (01) ==
LOC: C.EDB 11:12 → EDBD 11:12 → C.EDB 15:54
DX: R55 Syncope and collapse (principal); R11.0 Nausea; F41.9 Anxiety disorder, unspecified; I48.91 Unspecified atrial fibrillation; F32.9 Major depressive disorder, single episode, unspecified; E11.9 Type 2 diabetes mellitus without complications; E78.5 Hyperlipidemia, unspecified; I10 Essential (primary) hypertension; I25.2 Old myocardial infarction; Z91.040 Latex allergy status; Z88.0 Allergy status to penicillin; Z88.8 Allergy status to other drugs, medicaments and biological substances

== ENCOUNTER → 2017-10-12 | Outpatient (CLI) | payer OTHER ==
[~2017-10-12] MED LIST changes: -ASPI-321 OR; -CITA40TA12 PO; +EZET10TA63 PO; -GEMF600T3 PO; +HYDR1CAP85 PO; -LISI-729 PO; -SERT1TAB68 PO; -SERT25TA PO; +SERT50TA PO; -[UNRECOGNIZED DRUG - CODE] PO
--- NOTE | 2017-10-12 13:15 | DIAGNOSTIC IMAGING REPORT ---
CHEST 2 VIEWS ROUTINE HISTORY: ABNORMAL CHEST CT,ABNORMAL CHEST XRAY COMPARISON: Chest 09/29/2017. FINDINGS: No pneumothorax. No pleural effusions. The heart is normal in size. Diffuse interstitial thickening persists. This is most pronounced within the right upper lobe. Poststernotomy. Left-sided pacemaker/defibrillator. No new focal lung consolidations. 6 mm nodular density within the right lung base is again noted. IMPRESSION: No change in the mild diffuse interstitial thickening. No new focal lung consolidations. No evidence for pulmonary edema. Electronically signed by: John Wilkerson M.D. 10/12/2017 1:14 PM Dictated Date/Time: 10/12/2017 1:12 PM
== END | disposition home or self-care (01) ==
LOC: C.RAD 12:17
PROVIDERS: ATTEND Physician Assistant
DX: R91.8 Other nonspecific abnormal finding of lung field (principal)

== ENCOUNTER → 2017-10-13 | Outpatient (CLI) | payer OTHER ==
--- NOTE | 2017-10-13 15:29 | DIAGNOSTIC IMAGING REPORT ---
SOFT TISS HEAD/NECK-THYROID CLINICAL HISTORY: 62 years-old Female presenting with THYROID NODULE ON CT. TECHNIQUE: Real-time grayscale and color Doppler ultrasound imaging of the thyroid and base of the neck was performed. COMPARISON: None. FINDINGS: Right lobe: Heterogeneous echotexture. The right lobe of the thyroid measures 4.3 x 2.0 x 2.2 cm. No parenchymal hyperemia. Index nodule(s) enumerated below: 1. Heterogeneous partially hyperechoic partially hypoechoic well-defined 2.3 x 1.3 x 1.8 cm lower pole nodule with extensive internal vascularity. Hyperechoic foci may indicate calcifications (intermediate suspicion). Left lobe: Heterogeneous echotexture. The left lobe of the thyroid measures 4.0 x 1.4 x 1.3 cm. No parenchymal hyperemia. Index nodule(s) enumerated below: 1. Well-defined hypoechoic 0.7 x 0.5 x 0.5 cm nodule (intermediate suspicion). Isthmus: The isthmus measures 2 mm in thickness. No parenchymal hyperemia. No nodules. IMPRESSION: Dominant right thyroid lobe nodule meets [place] [employer] criteria for fine-needle aspiration of this has not previously been performed. Electronically signed by: Neftali Zamarripa M.D. 10/13/2017 3:28 PM Dictated Date/Time: 10/13/2017 3:25 PM
--- NOTE | 2017-10-13 15:35 | DIAGNOSTIC IMAGING REPORT ---
ULTRASOUND OF THE CAROTID ARTERIES CLINICAL HISTORY: Near syncope. Hyperlipidemia. COMPARISON STUDY: No priors. TECHNIQUE: Real-time, grayscale, and color Doppler sonography of the carotid arteries is performed. Images are reviewed in the transverse and longitudinal planes. FINDINGS: Blood pressure in the right arm measures 136/81 and blood pressure in the left arm measures 136/80. The carotid arteries are patent bilaterally and demonstrate antegrade flow. There is mild atherosclerotic plaque identified. Normal doppler arterial waveforms are seen throughout. Velocity measurements are listed below. Common carotid peak systolic velocity (cm/sec): RIGHT: 53 LEFT: 51 ICA proximal peak systolic velocity (cm/sec): RIGHT: 55 LEFT: 49 ICA mid peak systolic velocity (cm/sec): RIGHT: 70 LEFT: 51 ICA distal peak systolic velocity (cm/sec): RIGHT: 76 LEFT: 65 ICA/CC peak systolic ratio: RIGHT: 1.2 LEFT: 1.3 Antegrade flow was shown in the vertebral arteries. The external carotid arteries are patent. IMPRESSION: 1. There is no sonographic evidence of hemodynamically significant stenosis in the right or left carotid arterial system. 2. Antegrade flow is shown in the vertebral arteries. Electronically signed by: Sb German M.D. 10/13/2017 3:34 PM Dictated Date/Time: 10/13/2017 3:33 PM
== END | disposition home or self-care (01) ==
LOC: C.ULTR 13:59
PROVIDERS: ATTEND Physician Assistant
DX: E04.2 Nontoxic multinodular goiter (principal); E78.2 Mixed hyperlipidemia; R55 Syncope and collapse

== ENCOUNTER → 2017-10-27 | Outpatient (CLI) | payer OTHER ==
--- NOTE | 2017-10-27 11:51 | Discharge Instructions ---
Discharge Instructions Procedure Procedure Date: Oct 27, 2017. Reason for visit: Rt Thyroid Nodule. Discharge Discharge Date: Oct 27, 2017. Discharge Diagnosis: Right thyroid nodule Instructions Activity Recommendations: No limitations Return to School/Work: no limitations Recommended Home Diet: Resume Previous Diet Provider Instructions: Ultrasound guided fine-needle aspiration of a right lobe nodule is performed with 4 passes utilizing 25 gauge needles. The procedure was well tolerated and without immediate complication. ACTIVITY RECOMMENDATIONS: * Rest today. * Resume regular activity in one day. MEDICATIONS: * May take Tylenol or Ibuprofen as needed for pain. DIET: * Resume previous diet. SPECIAL CARE INSTRUCTIONS: Call your doctor if: * Temperature above 101 degrees F. * Pain not relieved by pain medicine ordered. * Increased drainage or redness from incision. * Notify your doctor with any questions or concerns. Call your doctor or go to the nearest Emergency Department if you experience: * Increased chest pain or shortness of breath. FOLLOW UP VISIT: Follow-up with Referring Physician as scheduled. Allergies Coded Allergies: Latex1 -Allergic Contact Dermititis (Verified Allergy, Mild, HIVES, ) Adhesives (Verified Allergy, Unknown, `, 09/29/17) Penicillin V (Verified Allergy, Unknown, 0, 09/29/17) Aspirin (Verified Adverse Reaction, Mild, ` STOMACH UPSET WITH 325 MG TABLET, 09/29/17) [place] Recommendations: Call your doctor if: * Temperature above 101 degrees * Pain not relieved by pain medicine ordered * There is increased drainage or redness from any incision * You have any unanswered questions or concerns. Your Doctors Instructions noted above were prepared by provider Sb German. Patient Signature Section: Patient Instructions Signature Page Codi Painter Patient (or Guardian) Signature/Date: I have read and understand the instructions given to me by my caregivers. Caregiver/RN/Doctor Signature/Date: The above-named patient and/or guardian has received patient instructions on this date. + Original Patient Signature Page (only) stays with chart. Please make copy for patient.
--- NOTE | 2017-10-27 13:32 | DIAGNOSTIC IMAGING REPORT ---
ULTRASOUND-GUIDED FINE-NEEDLE ASPIRATION THYROID CLINICAL HISTORY: Right lobe thyroid nodule. COMPARISON STUDY: Thyroid ultrasound dated 10/13/2017.. PROCEDURE: The risks, benefits, and alternatives to the procedure were discussed with the patient. Written informed consent was obtained. The patient was placed supine in ultrasound, and the complex 2.3 x 1.8 x 1.3 cm nodule in the right lobe of the thyroid was localized by ultrasound and selected for fine needle aspiration. The right neck was prepped and draped in the usual sterile fashion. The nodule was aspirated under ultrasound guidance with 4 passes utilizing 25-gauge needles. Specimens were reviewed by the pathologist in real-time. The patient tolerated the procedure well and left the department in satisfactory condition. IMPRESSION: Completed fine-needle aspiration of a complex right lobe thyroid nodule as above. Electronically signed by: Sb German M.D. 10/27/2017 1:31 PM Dictated Date/Time: 10/27/2017 1:30 PM
== END | disposition home or self-care (01) ==
LOC: C.ULTR 10:40
PROVIDERS: ATTEND Physician Assistant
DX: E04.2 Nontoxic multinodular goiter (principal)

== ENCOUNTER 2021-03-12 15:37 | Inpatient (IN) ==
[2021-03-12 16:17] LABS: Basophils # (auto) 0.01 K/uL (0-0.2); Basophils % (auto) 0.1 %; Eosinophils # (auto) 0.02 K/uL (0-0.5); Eosinophils % (auto) 0.2 %; Hematocrit (blood only) 35.8 % (37-47); Hemoglobin 12.2 g/dL (12.0-16.0); Immature Granulocytes # (auto) 0.02 K/uL (0.00-0.02); Immature Granulocytes % (auto) 0.2 %; Lymphocytes # (auto) 0.34 K/uL (1.2-3.4); Lymphocytes % (auto) 3.7 %; Mean Corpuscular Hemoglobin 28.4 pg (25-34); Mean Corpuscular Hgb Conc 34.1 g/dL (32-36); Mean Corpuscular Volume 83.4 fL (80-100); Mean Platelet Volume 10.2 fL (7.4-10.4); Monocytes # (auto) 0.45 K/uL (0.11-0.59); Monocytes % (auto) 4.9 %; Neutrophils # (auto) 8.28 K/uL (1.4-6.5); Neutrophils % (auto) 90.9 %; Platelet Count 135 K/uL (130-400); RDW Coefficient of Variation 13.1 % (11.5-14.5); RDW Standard Deviation 39.4 fL (36.4-46.3); Red Blood Count 4.29 M/uL (4.2-5.4); White Blood Count 9.12 K/uL (4.8-10.8)
[2021-03-12 16:30] LABS: Albumin Level 3.3 gm/dl (3.4-5.0); BUN Creatinine Ratio 13.5 (10-20); Calcium 9.2 mg/dl (8.5-10.1); Creatinine Clr Calc Pharmacy 47.6 ml/min; Est GFR (African American) 68.3 ml/min; Potassium 3.8 mmol/L (3.5-5.1)
[2021-03-12 16:32] LABS: Albumin Globulin Ratio 0.7 (0.9-2); Bilirubin,Total 1.7 mg/dl (0.2-1); Globulin 4.4 gm/dl (2.5-4.0); Total Protein 7.7 gm/dl (6.4-8.2)
[2021-03-12] MEDS ORDERED: ONDANSETRON INJ 2 MG/ML 2 ML VIAL IV STA (17:33)
[2021-03-12] MEDS ORDERED: MoRPHine SULFATE 4 MG/ML 1 ML CARP\\VIAL IV STA ×2 (17:33→19:55)
--- NOTE | 2021-03-12 18:18 | CT Scan Report ---
CT OF THE LUMBAR SPINE CLINICAL HISTORY: Back pain following fall. COMPARISON STUDY: Lumbar spine radiographs November 18, 2019. TECHNIQUE: Helical axial images of the lumbar spine were obtained. Sagittal and coronal reconstruct ions were viewed. Automated exposure control was utilized for the study. A dose lowering technique was utilized adhering to the principles of ALARA. FINDINGS: For purposes of numbering on this exam, the L5-S1 disc space is assigned to axial image 264 of 327. A 4 mm calculus within the lower pole of the left kidney is incidentally noted. There is non specific left perinephric stranding with slight thickening of the Gerota's fascia. There is no hydron ephrosis. No suspicious osseous lesions are present. Note is made of old L2, L3 and L4 compression fr actures which are similar to lumbar spine radiographs of November 08, 2019. There is an acute appearing L1 fracture with 60% loss of vertebral body height. Posterior cortex is disrupted with 6 mm of retropuls ion. This results in moderate central canal stenosis at this level. Fracture extend to the anterior a spect of the bilateral pedicles. No additional acute fractures are noted. Note is made of possible sm all amount of posterior epidural hemorrhage, partially imaged on this exam. This is most pronounced a t the T12-L1 level and measures approximately 3 mm in AP thickness. The posterior epidural fat appear s displaced. IMPRESSION: 1. Acute L1 burst fracture with 60% loss of vertebral body height and 6 mm of retropulsion which resu lts in moderate central canal stenosis. Spine surgical consultation is recommended. Possible small po sterior epidural hematoma, suboptimally assessed by CT, at the T12-L1 level, partially imaged on this exam. If no contraindications, this can be assessed with MRI. 2. Old L2, L3 and L4 compression fractures which are unchanged. 3. Nonspecific left perinephric stranding. Differential considerations include an infectious process or recently passed calculus; however, no hydronephrosis. 4 mm left renal calculus. ACT 112: Negative or not required by law. Electronically signed by: Tejinder Archer M.D. 03/12/2021 6:16 PM
--- NOTE | 2021-03-12 19:38 | History & Physical Report ---
Date of Service March 12, 2021 Assessment & Plan (1) Fracture of L1 vertebra: Plan: -Patient admitted for a burst L1 fracture noted on CT scan. -Neurologically intact -Place on morphine WARP HAULER due to severe pain. -ADDED miralax and senna for bowel regimen. (2) Coronary artery disease: Plan: PCI to LAD in May 2020 kelsea hold AM dose of plavix for possible procedue (3) ICD (implantable cardioverter-defibrillator), biventricular, in situ: Plan: as noted (4) Ischemic cardiomyopathy: Plan: EF has improved. resume home meds. carvedilol and isosor bide mononitrate (5) Hypothyroidism: Plan: continue home levothyroxine, appears stable. (6) AF (paroxysmal atrial fibrillation): Plan: not on anticoagulation. will resume beta jus. (7) Depression: Plan: resume home medication (8) Diabetes mellitus, type 2: Plan: latest a1c was 6.4 will recheck in am will monitor fasting blood sugars Taking metformin at home. will hold for now. History of Present Illness Chief Complaint: back pain Primary Care Provider: LIEN Hanson This is a pleasnt 65 yo female a history of sick sinus syndrome S/P biventricular ICD, paroxysmal atrial fibrillation, coronary artery disease s/p PCI of LAD and RCA, resolved cardiomyopathy, hypertension, type 2 diabetes, and hypothyroidism. Patient suffered a mechanical wall while slipping on her dogs urine at home. She fell on her back and had signifcant pain. This prompted her to come to the ER. Patient reports pain is severe and requires morphine. Pt denies LOC, headache, fevers, chills, diaphoresis, visual changes, neck pain, chest pain, breathing difficulties, nausea, vomiting, abdominal pain, bowel or bladder complaints, melena, hematochezia, urinary symptoms, numbness, weakness, lymphadenopathy, rash, or other complaints. Allergies Allergy/AdvReac Type Severity Reaction Status Date / Time latex Allergy Intermediate HIVES Verified 03/12/21 20:21 adhesive Allergy Mild SKIN Verified 03/12/21 20:21 IRRITATION penicillin V Allergy Unknown Unknown Verified 03/12/21 20:21 aspirin AdvReac Mild STOMACH Verified 03/12/21 20:21 UPSET Home Medications Medication Instructions Recorded Confirmed Type carvedilol 6.25 mg tablet 6.25 mg PO BIDM 06/16/18 03/12/21 History ergocalciferol (vitamin D2) 1,250 50,000 unit PO WK 06/16/18 03/12/21 History mcg (50,000 unit) capsule (Vitamin D2) nitroglycerin 0.4 mg sublingual 0.4 mg SUBLINGUAL DIRECTED PRN 06/16/18 03/12/21 History tablet (Nitrostat) metformin 500 mg tablet 500 mg PO BID 06/17/18 03/12/21 History magnesium oxide 400 mg PO BID 09/27/18 03/12/21 History aspirin 81 mg tablet,delayed 81 mg PO QAM 11/30/18 03/12/21 History release blood sugar diagnostic (OneTouch #10 ea 03/01/19 01/07/21 History Ultra Blue Test Strip) lancets (Tears for LifeTouch UltraSoft #50 ea 03/01/19 01/07/21 History Lancets) levothyroxine 50 mcg tablet 50 mcg PO DAILY #90 tab 03/01/19 03/12/21 History alendronate 70 mg tablet (Fosamax) 70 mg PO WEEKLY tab 03/28/19 03/12/21 History isosorbide mononitrate 120 mg 120 mg PO DAILY #30 tab 08/15/20 03/12/21 Rx tablet,extended release 24 hr clopidogrel 75 mg tablet (Plavix) 75 mg PO DAILY #90 tab 09/04/20 03/12/21 Rx atorvastatin 80 mg tablet 80 mg PO HS 03/12/21 03/12/21 History famotidine 20 mg tablet 20 mg PO DAILY 03/12/21 03/12/21 History hydroxyzine pamoate 25 mg capsule 25 mg PO DAILY PRN 03/12/21 03/12/21 History omeprazole 20 mg capsule,delayed 20 mg PO DAILY 03/12/21 03/12/21 History release oxybutynin chloride 5 mg tablet 5 mg PO BID 03/12/21 03/12/21 History sertraline 100 mg tablet 100 mg PO DAILY 03/12/21 03/12/21 History solifenacin 5 mg tablet (Vesicare) 5 mg PO DAILY 03/12/21 03/12/21 History Past Med/Surg History Medical History (Updated 03/12/21 @ 23:19 by Rusty Phillips) Acid reflux disease with ulcer AF (paroxysmal atrial fibrillation) Alcohol abuse, unspecified Anxiety Anxiety disorder Anxiety state, unspecified Atrial fibrillation CAD (coronary artery disease) Cancer SKIN CANCER Cardiac arrest Cardiomyopathy Congestive cardiomyopathy Congestive heart failure, unspecified Cor athrscl-uns vessel Coronary artery disease Depression Depressive disorder, not elsewhere classified Diabetes mellitus, type 2 Dysphagia, oropharyngeal phase Fecal incontinence GERD (gastroesophageal reflux disease) Goiter Celia's thyroiditis HLD (hyperlipidemia) Hypertension Hypothyroidism PT DENIES. Ischemic cardiomyopathy Lumbago Lumbar compression fracture Ocular hypertension, unspecified eye Old myocardial infarct Other and unspecified hyperlipidemia Postmenopausal atrophic vaginitis Subclinical hypothyroidism Type 2 diabetes mellitus Unknown whether patient has any health problems Urinary tract infection FREQUENT Surgical History History of appendectomy History of cardiac cath 1 STENT (2016 @ [facility]) History of cholecystectomy History of colonoscopy History of esophagogastroduodenoscopy (EGD) History of heart artery stent ADVISED TO BRING STENT CARD History of tonsillectomy S/P placement of cardiac pacemaker ~15-20 YEARS AGO. FOLLOWS WITH DR RUBI AND LAST CHECKED 4 MONTHS AGO Family History Mother Family history of diabetes mellitus Blind Hearing loss Hypertension Allergies Asthma Sister Family history of diabetes mellitus Coronary heart disease Father No problems noted. Denies family history of No family history of adverse response to anesthesia No family history of bleeding disorder Heart disease Cancer Stroke Social History Smoking Status: Never smoker Second Hand Exposure: No; Hx Alcohol Use: Yes Alcohol type: beer and hard liquor Alcohol Intake Frequency: 2-3 x/Week Hx Substance Use: No Preferred Language: Thai Communication Ability: Effective Shop Mechanic Required: No Beliefs That Will Affect Care: None marital status: Current Living Situation: Spouse How many Children do You have: 1 Feels Safe at Home: Yes Safety Concerns: Feels Safe At This Time Assistive Devices: Denture - Upper and Glasses Review of Systems Review of Systems: All systems reviewed & are unremarkable except as noted in HPI & below Physical Exam Constitutional: WD/WN, vitals as above Eyes: PERRL, conjunctivae normal, anicteric sclerae ENMT: external ear and nose normal, oropharynx normal Neck: trachea midline, no thyromegaly Respiratory: normal respiratory effort, lungs clear to auscultation Cardiovascular: RRR, no murmur, no edema Gastrointestinal (Abdomen): normal bowel sounds, soft, nontender, no hepatosplenomegaly Musculoskeletal: no cyanosis or clubbing, extremities motor strength 5/5 Skin: no rashes, warm and dry Neurologic: PERRL, EOMI, accommodation nl, no face palsy, no dysarthria Psychiatric: Orientation: alert, oriented to person, oriented to place and cooperative; + not oriented to time Lymphatic: no cervical or axillary lymphadenopathy Results & Data Results & Data ([facility]) Vital Signs (Past 12 Hours) Vital Signs Temp Pulse Pulse Resp BP BP Pulse Ox 03/12/21 17:25 79 22 183/116 H 94 03/12/21 15:25 37.0 C 90 20 179/84 H 95 PG Care Time/CCT Total # of Minutes Spent Total Time Spent with Patient: Total time spent is greater than 50% in coordination of care (as documented) at patient's floor/unit and/or counseling patient: Coding Level of Care Code 72439 Initial Inpt Care Lvl 3 Diagnoses Fracture of L1 vertebra S32.019A Coronary artery disease I25.10 ICD (implantable cardioverter-defibrillator), biventricular, in situ Z95.810 Ischemic cardiomyopathy I25.5 Hypothyroidism E03.8; E06.3 Hypothyroidism type: due to Celia's thyroiditis AF (paroxysmal atrial fibrillation) I48.0 Depression F32.9 Diabetes mellitus, type 2 E11.9 (1) Hypothyroidism Hypothyroidism type: due to Celia's thyroiditis Qualified Code(s): E03.8 - Other specified hypothyroidism; E06.3 - Autoimmune thyroiditis
[2021-03-12] MEDS ORDERED: MoRPHine SULFATE 4 MG/ML 1 ML CARP\\VIAL IV PRN (19:39)
[2021-03-12] MEDS ORDERED: MoRPHine SULFATE PCA 30 MG/30 ML IV PRN (19:52)
[2021-03-12] MEDS ORDERED: NALOXONE HCL 0.4 MG/1 ML VIAL/CARP IV PRN (19:52)
--- NOTE | 2021-03-12 21:21 | Emergency Department Note ---
Impression & Plan Fracture of L1 vertebra, Fall ED Provider Note INFORMANT: Patient ED PROVIDER(S): Elliott Dean MD CHIEF COMPLAINT: Back pain PLAN: Disposition: Admitted Condition: Good Outpatient prescription management: None Referral: None MEDICAL DECISION MAKING: Patient presented to emergency room because of an accidental fall. She had acute low back pain. She denied any other injury. She denied striking her head. She had no neck pain. Primary and secondary surveys were performed. She had midline low back pain. She was neurologically intact. She was given IV morphine and Zofran for pain control. The patient underwent imaging and blood work. She had an unremarkable CBC and chemistry panel. L1 burst fracture was noted on CT imaging. This showed retropulsion into the canal and mild associated hemorrhage. I did discuss this finding with Dr. Kofi Lindsey of orthopedic spine. He asked for the patient to be kept in bed, pain managed and admitted to internal medicine. He will need to likely perform an operative stabilization tomorrow. If the patient's condition deteriorates she should be reimaged and he should be notified. I did discuss the case with Dr. Phillips of the [facility] service. The patient was evaluated in the ER admitted for further management. Patient and were informed. They were pleased with the treatment. Triage Nursing notes reviewed and agree them. Vital Signs: reviewed and remarkable for no significant abnormalities Differential diagnosis: Musculoskeletal, disc herniation, fracture, metastatic disease, cord compression, discitis, sciatica, cauda equina, infection, aortic disease, renal colic, gastrointestinal, as well as other pathologies. Diagnostics interpreted by me: ECG: Twelve-lead ECG reveals sinus rhythm with first-degree block at 79 bpm. Left axis deviation, LVH. Septal Q waves. No ST elevation. Nonspecific ST. Cardiac Monitoring: Cardiac monitoring ordered by me: The patient was placed on continuous cardiac monitoring and observed. It revealed a normal sinus rhythm at 81 beats per minute without ectopy or evidence of dysrhythmia. Imaging studies: CT scan of the lumbar spine reveals a burst fracture of L1 with associated epidural blood and mild retropulsion into the canal with moderate stenosis. Old L2, L3, and L4 compression fractures noted. I refer you to the EMR for further details. HPI: The patient is a 65 year old female who presents to the Emergency Room with complaints of low back pain. This started just prior to arrival and is from an accidental fall. She slipped on a wet floor and landed on her back.. The patient also notes the following associated symptoms, none. The patient has found no relieving factors. Current pain is rated as 8/10. Pt denies LOC, headache, fevers, chills, diaphoresis, visual changes, neck pain, chest pain, breathing difficulties, nausea, vomiting, abdominal pain, bowel or bladder complaints, melena, hematochezia, urinary symptoms, numbness, weakness, lymphadenopathy, rash, or other complaints. ROS: See above HPI for pertinent positives & negatives. A total of 10 systems reviewed and were otherwise negative. PAST MEDICAL HISTORY:See Below , coronary artery disease, cardiomyopathy PAST SURGICAL HISTORY:See Below, cholecystectomy FAMILY HISTORY:See Below SOCIAL HISTORY:See Below, HOME MEDICATIONS:See Below ALLERGIES:See Below VITALS:See Below PHYSICAL EXAMINATION: GENERAL: Awake, alert, uncomfortable-appearing, in no distress HENT: Normocephalic, atraumatic. Oropharynx unremarkable. EYES: Normal conjunctiva. Sclera non-icteric. PERRLA. EOMI. NECK: Inspection normal. Non-tender. Supple. No nuchal rigidity. FROM. No masses. RESPIRATORY: Clear to auscultation. No wheezes. No rales. Normal respiratory effort. CARDIAC: Normal rate. Normal rhythm. No murmurs. No rubs. Extremities warm and well perfused. Pulses equal. No JVD. GI: Soft, non-distended. No tenderness to palpation. No rebound or guarding. No masses. RECTAL: Deferred. MUSCULOSKELETAL: Atraumatic. Chest examination reveals no tenderness. The back is tender in the low lumbar midline. There is no CVA tenderness to palpation. No joint edema. LOWER EXTREMITIES: Calves are equal size bilaterally and non-tender. No edema. No discoloration. NEURO: Normal sensorium. No sensory or motor deficits noted. No saddle anesthesia. SKIN: No rash or jaundice noted. Elliott Dean MD Past Med/Surg History Medical History Acid reflux disease with ulcer AF (paroxysmal atrial fibrillation) Alcohol abuse, unspecified Anxiety Anxiety disorder Anxiety state, unspecified Atrial fibrillation CAD (coronary artery disease) Cancer Cardiac arrest Cardiomyopathy Congestive cardiomyopathy Congestive heart failure, unspecified Cor athrscl-uns vessel Coronary artery disease Depression Depressive disorder, not elsewhere classified Diabetes mellitus, type 2 Dysphagia, oropharyngeal phase Fecal incontinence GERD (gastroesophageal reflux disease) Goiter Celia's thyroiditis HLD (hyperlipidemia) Hypertension Hypothyroidism Ischemic cardiomyopathy Lumbago Lumbar compression fracture Ocular hypertension, unspecified eye Old myocardial infarct Other and unspecified hyperlipidemia Postmenopausal atrophic vaginitis Subclinical hypothyroidism Type 2 diabetes mellitus Unknown whether patient has any health problems Urinary tract infection Surgical History History of appendectomy History of cardiac cath History of cholecystectomy History of colonoscopy History of esophagogastroduodenoscopy (EGD) History of heart artery stent History of tonsillectomy S/P placement of cardiac pacemaker Family History Mother Family history of diabetes mellitus Blind Hearing loss Hypertension Allergies Asthma Sister Family history of diabetes mellitus Coronary heart disease Father No problems noted. Denies family history of No family history of adverse response to anesthesia No family history of bleeding disorder Heart disease Cancer Stroke Social History Smoking Status: Never smoker Second Hand Exposure: No; Hx Alcohol Use: Yes Alcohol Intake Frequency: 2-3 x/Week Hx Substance Use: No Preferred Language: Finnish Communication Ability: Effective Senior Warehouse Clerk Required: No Beliefs That Will Affect Care: None marital status: Current Living Situation: Spouse How many Children do You have: 1 Feels Safe at Home: Yes Assistive Devices: Glasses Allergies Allergies Allergy/AdvReac Type Severity Reaction Status Date / Time latex Allergy Intermediate HIVES Verified 03/12/21 20:21 adhesive Allergy Mild SKIN Verified 03/12/21 20:21 IRRITATION penicillin V Allergy Unknown Unknown Verified 03/12/21 20:21 aspirin AdvReac Mild STOMACH Verified 03/12/21 20:21 UPSET Home Meds Home Medications Medication Instructions Recorded Confirmed carvedilol 6.25 mg tablet 6.25 mg PO BIDM 06/16/18 03/12/21 ergocalciferol (vitamin D2) 1,250 50,000 unit PO WK 06/16/18 03/12/21 mcg (50,000 unit) capsule (Vitamin D2) nitroglycerin 0.4 mg sublingual 0.4 mg SUBLINGUAL DIRECTED PRN 06/16/18 03/12/21 tablet (Nitrostat) metformin 500 mg tablet 500 mg PO BID 06/17/18 03/12/21 magnesium oxide 400 mg PO BID 09/27/18 03/12/21 aspirin 81 mg tablet,delayed 81 mg PO QAM 11/30/18 03/12/21 release blood sugar diagnostic (OneTouch #10 ea 03/01/19 01/07/21 Ultra Blue Test Strip) lancets (SoFiTouch UltraSoft #50 ea 03/01/19 01/07/21 Lancets) levothyroxine 50 mcg tablet 50 mcg PO DAILY #90 tab 03/01/19 03/12/21 alendronate 70 mg tablet (Fosamax) 70 mg PO WEEKLY tab 03/28/19 03/12/21 atorvastatin 80 mg tablet 80 mg PO HS 03/12/21 03/12/21 famotidine 20 mg tablet 20 mg PO DAILY 03/12/21 03/12/21 hydroxyzine pamoate 25 mg capsule 25 mg PO DAILY PRN 03/12/21 03/12/21 omeprazole 20 mg capsule,delayed 20 mg PO DAILY 03/12/21 03/12/21 release oxybutynin chloride 5 mg tablet 5 mg PO BID 03/12/21 03/12/21 sertraline 100 mg tablet 100 mg PO DAILY 03/12/21 03/12/21 solifenacin 5 mg tablet (Vesicare) 5 mg PO DAILY 03/12/21 03/12/21 Previous Rx's Medication Instructions Recorded isosorbide mononitrate 120 mg 120 mg PO DAILY #30 tab 08/15/20 tablet,extended release 24 hr clopidogrel 75 mg tablet (Plavix) 75 mg PO DAILY #90 tab 09/04/20 Results & Data (ED) Vital Signs Vital Signs - 24 hr 03/12/21 15:25 03/12/21 17:25 03/12/21 21:16 Temperature 37.0 C Temperature Source Oral Pulse Rate 90 81 Pulse Rate [Radial] 79 Pulse Rhythm Regular Pulse Rhythm [Radial] Regular Pulse Strength Normal Pulse Strength [Radial] Normal Respiratory Rate 20 22 20 Respiratory Effort / Characteristics Non-Labored Non-Labored Respiratory Depth Normal Normal Respiratory Pattern Regular Tachypnea Blood Pressure 179/84 H 139/62 Blood Pressure [Right Arm] 183/116 H Blood Pressure Mean 115 Blood Pressure Mean [Right Arm] 138 Blood Pressure Position Lying Blood Pressure Position [Right Arm] Lying Pulse Oximetry 95 94 97 Oxygen Delivery Method Room Air Room Air Room Air Sepsis Recent Fever Within 48 Hours No Sepsis New/Unexplained Change in Mental Status N/A Sepsis Action Taken by Nursing No Action Required Laboratory Data Result diagrams: 03/12/21 16:00 03/12/21 16:00 Lab Results 03/12/21 03/12/21 03/12/21 Range/Units 16:00 16:00 19:30 WBC 9.12 (4.8-10.8) K/uL RBC 4.29 (4.2-5.4) M/uL Hgb 12.2 (12.0-16.0) g/dL Hct 35.8 L (37-47) % MCV 83.4 (80-100) fL MCH 28.4 (25-34) pg MCHC 34.1 (32-36) g/dL RDW Std Deviation 39.4 (36.4-46.3) fL RDW Coeff of Chucky 13.1 (11.5-14.5) % Plt Count 135 (130-400) K/uL MPV 10.2 (7.4-10.4) fL Immature Gran % (Auto) 0.2 % Neut % (Auto) 90.9 % Lymph % (Auto) 3.7 % [place] % (Auto) 4.9 % Eos % (Auto) 0.2 % Baso % (Auto) 0.1 % Neut # (Auto) 8.28 H (1.4-6.5) K/uL Lymph # (Auto) 0.34 L (1.2-3.4) K/uL [place] # (Auto) 0.45 (0.11-0.59) K/uL Eos # (Auto) 0.02 (0-0.5) K/uL Baso # (Auto) 0.01 (0-0.2) K/uL Immature Gran # (Auto) 0.02 (0.00-0.02) K/uL Sodium 134 L (136-145) mmol/L Potassium 3.8 (3.5-5.1) mmol/L Chloride 101 (98-107) mmol/L Carbon Dioxide 25 (21-32) mmol/L Anion Gap 8.0 (3-11) BUN 13 (7-18) mg/dl Creatinine 0.99 (0.6-1.2) mg/dl Est Cr Clr Drug Dosing 47.6 ml/min Est GFR ( Amer) 68.3 ml/min Est GFR (Non-Af Amer) 59.0 ml/min BUN/Creatinine Ratio 13.5 (10-20) Glucose 159 H (70-99) mg/dl Calcium 9.2 (8.5-10.1) mg/dl Total Bilirubin 1.7 H (0.2-1) mg/dl AST 15 (15-37) U/L ALT 19 (12-78) U/L Alkaline Phosphatase 110 (45-117) U/L Total Protein 7.7 (6.4-8.2) gm/dl Albumin 3.3 L (3.4-5.0) gm/dl Globulin 4.4 H (2.5-4.0) gm/dl Albumin/Globulin Ratio 0.7 L (0.9-2) COVID-19 Eval Order Covid19 at [facility] SARS-CoV-2 (PCR) (Negative) 03/12/21 Range/Units 19:30 WBC (4.8-10.8) K/uL RBC (4.2-5.4) M/uL Hgb (12.0-16.0) g/dL Hct (37-47) % MCV (80-100) fL MCH (25-34) pg MCHC (32-36) g/dL RDW Std Deviation (36.4-46.3) fL RDW Coeff of Chucky (11.5-14.5) % Plt Count (130-400) K/uL MPV (7.4-10.4) fL Immature Gran % (Auto) % Neut % (Auto) % Lymph % (Auto) % [place] % (Auto) % Eos % (Auto) % Baso % (Auto) % Neut # (Auto) (1.4-6.5) K/uL Lymph # (Auto) (1.2-3.4) K/uL [place] # (Auto) (0.11-0.59) K/uL Eos # (Auto) (0-0.5) K/uL Baso # (Auto) (0-0.2) K/uL Immature Gran # (Auto) (0.00-0.02) K/uL Sodium (136-145) mmol/L Potassium (3.5-5.1) mmol/L Chloride (98-107) mmol/L Carbon Dioxide (21-32) mmol/L Anion Gap (3-11) BUN (7-18) mg/dl Creatinine (0.6-1.2) mg/dl Est Cr Clr Drug Dosing ml/min Est GFR ( Amer) ml/min Est GFR (Non-Af Amer) ml/min BUN/Creatinine Ratio (10-20) Glucose (70-99) mg/dl Calcium (8.5-10.1) mg/dl Total Bilirubin (0.2-1) mg/dl AST (15-37) U/L ALT (12-78) U/L Alkaline Phosphatase (45-117) U/L Total Protein (6.4-8.2) gm/dl Albumin (3.4-5.0) gm/dl Globulin (2.5-4.0) gm/dl Albumin/Globulin Ratio (0.9-2) COVID-19 Eval Order SARS-CoV-2 (PCR) NEGATIVE (Negative) Administered Medications Discontinued Medications Morphine Sulfate (Morphine Sulfate 4 Mg/Ml 1 Ml Carp\Vial) 4 mg IV NOW STA Stop: 03/12/21 17:34 Last Admin: 03/12/21 17:39 Dose: 4 mg Documented by: [id number] Morphine Sulfate (Morphine Sulfate 4 Mg/Ml 1 Ml Carp\Vial) 3 mg IV NOW STA Stop: 03/12/21 19:56 Last Admin: 03/12/21 20:04 Dose: 3 mg Documented by: [id number] Ondansetron HCl (Ondansetron Inj 2 Mg/Ml 2 Ml Vial) 4 mg IV NOW STA Stop: 03/12/21 17:34 Last Admin: 03/12/21 17:39 Dose: 4 mg Documented by: [id number] Imaging Data Radiologist's Impression: Lumbar Spine CT 03/12/21 17:17 CT OF THE LUMBAR SPINE CLINICAL HISTORY: Back pain following fall. COMPARISON STUDY: Lumbar spine radiographs November 18, 2019. TECHNIQUE: Helical axial images of the lumbar spine were obtained. Sagittal and coronal reconstructions were viewed. Automated exposure control was utilized for the study. A dose lowering technique was utilized adhering to the principles of ALARA. FINDINGS: For purposes of numbering on this exam, the L5-S1 disc space is assigned to axial image 264 of 327. A 4 mm calculus within the lower pole of the left kidney is incidentally noted. There is nonspecific left perinephric stranding with slight thickening of the Gerota's fascia. There is no hydronephrosis. No suspicious osseous lesions are present. Note is made of old L2, L3 and L4 compression fractures which are similar to lumbar spine radiographs of November 08, 2019. There is an acute appearing L1 fracture with 60% loss of vertebral body height. Posterior cortex is disrupted with 6 mm of retropulsion. This results in moderate central canal stenosis at this level. Fracture extend to the anterior aspect of the bilateral pedicles. No additional acute fractures are noted. Note is made of possible small amount of posterior epidural hemorrhage, partially imaged on this exam. This is most pronounced at the T12-L1 level and measures approximately 3 mm in AP thickness. The posterior epidural fat appears displaced. IMPRESSION: 1. Acute L1 burst fracture with 60% loss of vertebral body height and 6 mm of retropulsion which results in moderate central canal stenosis. Spine surgical consultation is recommended. Possible small posterior epidural hematoma, suboptimally assessed by CT, at the T12-L1 level, partially imaged on this exam. If no contraindications, this can be assessed with MRI. 2. Old L2, L3 and L4 compression fractures which are unchanged. 3. Nonspecific left perinephric stranding. Differential considerations include an infectious process or recently passed calculus; however, no hydronephrosis. 4 mm left renal calculus. ACT 112: Negative or not required by law. Electronically signed by: Tejinder Archer M.D. 03/12/2021 6:16 PM Discharge Plan Visit Data Chief Complaint: Fall ED Provider: Elliott Dean Discharge Problem: Fracture of L1 vertebra, Fall Forms Stand Alone Forms: My [id number] Prescriptions Prescriptions: No Action clopidogrel [Plavix] 75 mg tablet 75 mg PO DAILY Qty: 90 RF: 3 levothyroxine 50 mcg tablet 50 mcg PO DAILY Qty: 90 RF: 0 (DME) OneTouch Ultra Blue Test Strip strip See Dose Instructions .ROUTE .MEDSUPPLY Qty: 10 RF: 0 (DME) lancets [OneTouch UltraSoft Lancets] misc See Dose Instructions .ROUTE .MEDSUPPLY Qty: 50 RF: 0 alendronate [Fosamax] 70 mg tablet 70 mg PO WEEKLY RF: 0 isosorbide mononitrate 120 mg tablet extended release 24 hr 120 mg PO DAILY Qty: 30 RF: 11 carvedilol 6.25 mg Tablet 6.25 mg PO BIDM RF: 0 ergocalciferol (vitamin D2) [Vitamin D2] 50,000 unit Capsule 50,000 unit PO WK RF: 0 nitroglycerin [Nitrostat] 0.4 mg Tablet, Sublingual 0.4 mg Sublingual DIRECTED PRN (Reason: Chest Pain) RF: 0 metformin 500 mg Tablet 500 mg PO BID RF: 0 aspirin 81 mg Tablet,Delayed Release (Dr/Ec) 81 mg PO QAM RF: 0 magnesium oxide 400 mg Capsule 400 mg PO BID RF: 0 sertraline 100 mg tablet 100 mg PO DAILY RF: 0 hydroxyzine pamoate 25 mg capsule 25 mg PO DAILY PRN (Reason: Anxiety) RF: 0 solifenacin [Vesicare] 5 mg tablet 5 mg PO DAILY RF: 0 atorvastatin 80 mg tablet 80 mg PO HS RF: 0 famotidine 20 mg tablet 20 mg PO DAILY RF: 0 oxybutynin chloride 5 mg tablet 5 mg PO BID RF: 0 omeprazole 20 mg capsule,delayed release(DR/EC) 20 mg PO DAILY RF: 0 Referrals Referrals: Codi Lee CRNP [Primary Care Provider] -
[2021-03-12] MEDS: ATORVASTATIN 40 MG TAB PO SCH (22:41)
[2021-03-12] MEDS: PANTOprazole 40 MG TAB PO SCH (22:41)
[2021-03-12] MEDS ORDERED: MoRPHine SULFATE 2 MG/ML CARP IV PRN (22:42)
[2021-03-12] MEDS ORDERED: DC IV INSULIN INFUSION 1 EA DEVI ONE (22:42)
[2021-03-12] MEDS: SODIUM CHLORIDE 0.9% 1000ML 1,000 ML IV SCH (22:43)
[2021-03-12] MEDS ORDERED: CARBOHYDRATES FOR HYPOGLYCEMIA PO PRN (23:00)
[2021-03-12] MEDS ORDERED: DEXTROSE 50% 50 ML SYRINGE IV PRN (23:00)
[2021-03-12] MEDS ORDERED: GLUCAGON FOR INJ 1 MG VIAL IM PRN (23:00)
[2021-03-12] MEDS ORDERED: GLUCOSE 10 TABS/TUBE PO PRN (23:00)
[2021-03-12] MEDS ORDERED: GLUCOSE 40% GEL 15 GM TUBE PO PRN (23:00)
[2021-03-13] MEDS: INSULIN ASPART 100 UNITS/ML 3 ML PEN SC SCH ×4 (00:03→17:38)
[2021-03-13] MEDS: HEPARIN SOD 5,000 UNIT/0.5 ML VIAL SQ SCH ×2 (06:22→14:02)
[2021-03-13] MEDS: LEVOTHYROXINE SODIUM 50 MCG TABLET PO SCH (06:26)
[2021-03-13 07:35] LABS: Hematocrit (blood only) 37.6 % (37-47); Hemoglobin 12.8 g/dL (12.0-16.0); Mean Corpuscular Hemoglobin 28.6 pg (25-34); Mean Corpuscular Volume 83.9 fL (80-100); Mean Platelet Volume 10.7 fL (7.4-10.4); Platelet Count 134 K/uL (130-400); RDW Coefficient of Variation 13.2 % (11.5-14.5); Red Blood Count 4.48 M/uL (4.2-5.4); White Blood Count 7.54 K/uL (4.8-10.8)
[2021-03-13 08:16] LABS: Estimated Average Glucose 140 mg/dl; Hemoglobin A1C 6.5 % (4.5-5.6)
[2021-03-13 08:17] LABS: Calcium 9.4 mg/dl (8.5-10.1); Creatinine Clr Calc Pharmacy 46.9 ml/min; Est GFR (African American) 65.9 ml/min; Est GFR (Non-African American) 56.9 ml/min; Potassium 4.1 mmol/L (3.5-5.1)
[2021-03-13] MEDS: ASPIRIN 81 MG ECTAB PO SCH ×2 (08:42→10:29)
[2021-03-13] MEDS: hydroCHLOROthiazide 25 MG TAB PO SCH ×2 (08:42→10:29)
[2021-03-13] MEDS: PANTOprazole 40 MG TAB PO SCH ×2 (08:42→20:17)
[2021-03-13] MEDS: OXYBUTYNIN CHLORIDE 5 MG TAB PO SCH ×3 (08:43→20:17)
[2021-03-13] MEDS: DOCUSATE SODIUM/SENNA 50/8.6MG TAB PO SCH ×2 (08:43→10:29)
[2021-03-13] MEDS: carvediloL 6.25 MG TAB PO SCH ×3 (08:43→16:41)
[2021-03-13] MEDS: lisinopril 5 MG TAB PO SCH ×2 (08:43→10:30)
[2021-03-13] MEDS: ISOSORBIDE MONO EXTENDED REL 60 MG TABCR PO SCH ×2 (08:43→10:29)
[2021-03-13] MEDS: SERTRALINE HCL 100 MG TABLET PO SCH ×2 (08:44→10:30)
[2021-03-13] MEDS: INSULIN GLARGINE SOLOSTAR 100 UNITS/ML 3 ML PEN SC SCH (08:44)
[2021-03-13] MEDS: POLYETHYLENE (MIRALAX) 17 GM PACK PO SCH (08:44)
[2021-03-13] MEDS ORDERED: SERTRALINE HCL 50 MG TABLET PO SCH (09:00)
[2021-03-13 13:53] LABS: Appearance Urine Cloudy (Clear); Bacteria Urine Automated 4+ (Negative); Blood Urine 3+ (Negative); Color Urine Dark Yellow; Glucose Urine UA Negative (Negative); Ketones Urine Trace (Negative); Leukocyte Esterase Urine Trace (Negative); Nitrite Urine Positive (Negative); Protein Urine 3+ (Negative); Specific Gravity Urine 1.021 (1.000-1.030); Urobilinogen Urine Negative (Negative); WBC Urine Automated >30 /hpf (0-5); pH Urine 5.5 (4.5-7.5)
[2021-03-13 13:56] LABS: Bilirubin Urine 1+ (Negative)
--- NOTE | 2021-03-13 16:18 | Hospitalist Progress Note ---
Date of Service March 13, 2021 Assessment & Plan (1) Fall: (2) Fracture of L1 vertebra: Plan: Appreciate orthopedics consultation. Given the loss of height and retropulsion, this really is not an elective case. Given her extensive coronary disease, we will have cardiology see her for assistance with pre-/postoperative management. Continue with morphine for pain management. It looks like she got several escalating doses in the emergency department and he for which led to decreased sensorium, but not necessarily respiratory depression. Start with morphine 1 mg IV every 3 hours. Would not restart the morphine pump at this time. Present on Admission?: Yes (3) Coronary artery disease: (4) AF (paroxysmal atrial fibrillation): (5) ICD (implantable cardioverter-defibrillator), biventricular, in situ: Plan: Extensive cardiac history including coronary disease, sick sinus syndrome status post ICD placement, ischemic cardiomyopathy, and coronary stent (05/29 2020) In reviewing previous cardiology notes, she has had some anginal symptoms relieved with nitroglycerin. At that time her Imdur was increased to 120 mg daily. She has noted history of atrial fibrillation but appears to be in sinus at the time of my exam. She is not on systemic anticoagulation. She is on clopidogrel although this is currently being held for her surgery. Hold lisinopril in a.m. Continue other cardiac medications (6) Diabetes mellitus, type 2: Plan: Hemoglobin A1c is 6.5% which is at goal considering her age and other comorbidities. We will hold Metformin We will cover with sliding scale insulin if needed, though her glucose has been fairly reasonable so far. (7) Depression: Plan: Continue sertraline (8) Osteoporosis: Plan: Continue Fosamax Continue vitamin D (9) Hypothyroidism: Plan: Continue levothyroxine 50 mcg daily (10) GERD (gastroesophageal reflux disease): Plan: Continue PPI Continue H2 jus Admission and Anticipated Discharge Date Admission Date: March 12, 2021 Subjective Mrs. Painter is a pleasant 65-year-old female with history of coronary artery disease status post coronary stent 05/2020, sick sinus syndrome status post biventricular ICD, paroxysmal atrial fibrillation, hypertension, diabetes, and hypothyroidism he was admitted to the hospital yesterday after she fell at home and suffered a L1 vertebral fracture. She was seen in consultation by orthopedic surgery who has tentatively scheduled her for the OR tomorrow morning. She was medicated in the emergency department and on the floor with morphine. At some point this morning, she had a decrease sensorium and was given Narcan. She did become more awake, but had a notable increase in her pain. I saw her this morning around 1030; at that time she was awake, partially alert, and somewhat confused. She did complain of back pain, although when we left the room to allow nursing to help her void on the bedpan -when we return, she had fallen asleep. We held off on additional pain medications (the morphine pump was discontinued) and I saw the patient again around 3:00. At this time, she was awake; she complained of back pain and a dry mouth. She was alert and oriented -she was able to tell me the circumstances of her fall and significant facts of her medical history. Review of Systems Constitutional: No fever Respiratory: Denies cough or shortness of breath Cardiovascular: Additional Comments: Denies chest pain Neurologic: Denies headache. No dizziness. Physical Exam Physical Exam: Lying supine in hospital bed. Alert and oriented. She complains of back pain. Constitutional: WD/WN, vitals as above Eyes: PERRL, conjunctivae normal, anicteric sclerae ENMT: external ear and nose normal, oropharynx normal Neck: trachea midline, no thyromegaly Respiratory: normal respiratory effort, lungs clear to auscultation Cardiovascular: RRR, no murmur, no edema Gastrointestinal (Abdomen): normal bowel sounds, soft, nontender, no hepatosplenomegaly Musculoskeletal: no cyanosis or clubbing, extremities motor strength 5/5 Skin: no rashes, warm and dry Neurologic: PERRL, EOMI, accommodation nl, no face palsy, no dysarthria Psychiatric: Orientation: alert, oriented x 3, oriented to person, oriented to place, oriented to time and cooperative Lymphatic: no cervical or axillary lymphadenopathy Results & Data Results & Data ([facility]) Vital Signs (Past 12 Hours) Vital Signs Temp Pulse Resp BP Pulse Ox 03/13/21 15:10 37.4 C 100 H 20 168/90 H 91 03/13/21 07:52 36.9 C 117 H 20 178/84 H 90 Laboratory Results 03/13/21 03/13/21 03/13/21 Range/Units 13:35 12:17 06:19 WBC (4.8-10.8) K/uL RBC (4.2-5.4) M/uL Hgb (12.0-16.0) g/dL Hct (37-47) % MCV (80-100) fL MCH (25-34) pg MCHC (32-36) g/dL RDW Std Deviation (36.4-46.3) fL RDW Coeff of Chucky (11.5-14.5) % Plt Count (130-400) K/uL MPV (7.4-10.4) fL Immature Gran % (Auto) % Neut % (Auto) % Lymph % (Auto) % [place] % (Auto) % Eos % (Auto) % Baso % (Auto) % Neut # (Auto) (1.4-6.5) K/uL Lymph # (Auto) (1.2-3.4) K/uL [place] # (Auto) (0.11-0.59) K/uL Eos # (Auto) (0-0.5) K/uL Baso # (Auto) (0-0.2) K/uL Immature Gran # (Auto) (0.00-0.02) K/uL Sodium (136-145) mmol/L Potassium (3.5-5.1) mmol/L Chloride (98-107) mmol/L Carbon Dioxide (21-32) mmol/L Anion Gap (3-11) BUN (7-18) mg/dl Creatinine (0.6-1.2) mg/dl Est Cr Clr Drug Dosing ml/min Est GFR ( Amer) ml/min Est GFR (Non-Af Amer) ml/min BUN/Creatinine Ratio (10-20) Glucose (70-99) mg/dl POC Glucose 139 H 141 H (70-99) mg/dl Estimat Average Glucose mg/dl Hemoglobin A1c (4.5-5.6) % Calcium (8.5-10.1) mg/dl Total Bilirubin (0.2-1) mg/dl AST (15-37) U/L ALT (12-78) U/L Alkaline Phosphatase (45-117) U/L Total Protein (6.4-8.2) gm/dl Albumin (3.4-5.0) gm/dl Globulin (2.5-4.0) gm/dl Albumin/Globulin Ratio (0.9-2) Urine Color Dark Yellow Urine Appearance Cloudy A (Clear) Urine pH 5.5 (4.5-7.5) Ur Specific [place] 1.021 (1.000-1.030) Urine Protein 3+ H (Negative) Urine Glucose (UA) Negative (Negative) Urine Ketones Trace H (Negative) Urine Blood 3+ H (Negative) Urine Nitrite Positive A (Negative) Urine Bilirubin 1+ H (Negative) Urine Urobilinogen Negative (Negative) Ur Leukocyte Esterase Trace H (Negative) Urine WBC (Auto) >30 H (0-5) /hpf Urine RBC (Auto) 5-10 H (0-4) /hpf U Hyaline Cast (Auto) 10-30 H (0-5) /lpf U Epithel Cells (Auto) 10-20 H (0-5) /lpf Urine Bacteria (Auto) 4+ H (Negative) Granular Casts 5-10 H (0) /lpf COVID-19 Eval Order SARS-CoV-2 (PCR) (Negative) 03/13/21 03/13/21 03/13/21 Range/Units 06:08 06:08 06:08 WBC 7.54 (4.8-10.8) K/uL RBC 4.48 (4.2-5.4) M/uL Hgb 12.8 (12.0-16.0) g/dL Hct 37.6 (37-47) % MCV 83.9 (80-100) fL MCH 28.6 (25-34) pg MCHC 34.0 (32-36) g/dL RDW Std Deviation 40.0 (36.4-46.3) fL RDW Coeff of Chucky 13.2 (11.5-14.5) % Plt Count 134 (130-400) K/uL MPV 10.7 H (7.4-10.4) fL Immature Gran % (Auto) % Neut % (Auto) % Lymph % (Auto) % [place] % (Auto) % Eos % (Auto) % Baso % (Auto) % Neut # (Auto) (1.4-6.5) K/uL Lymph # (Auto) (1.2-3.4) K/uL [place] # (Auto) (0.11-0.59) K/uL Eos # (Auto) (0-0.5) K/uL Baso # (Auto) (0-0.2) K/uL Immature Gran # (Auto) (0.00-0.02) K/uL Sodium 135 L (136-145) mmol/L Potassium 4.1 (3.5-5.1) mmol/L Chloride 100 (98-107) mmol/L Carbon Dioxide 27 (21-32) mmol/L Anion Gap 8.0 (3-11) BUN 17 (7-18) mg/dl Creatinine 1.02 (0.6-1.2) mg/dl Est Cr Clr Drug Dosing 46.9 ml/min Est GFR ( Amer) 65.9 ml/min Est GFR (Non-Af Amer) 56.9 ml/min BUN/Creatinine Ratio 17.0 (10-20) Glucose 137 H (70-99) mg/dl POC Glucose (70-99) mg/dl Estimat Average Glucose 140 mg/dl Hemoglobin A1c 6.5 H (4.5-5.6) % Calcium 9.4 (8.5-10.1) mg/dl Total Bilirubin (0.2-1) mg/dl AST (15-37) U/L ALT (12-78) U/L Alkaline Phosphatase (45-117) U/L Total Protein (6.4-8.2) gm/dl Albumin (3.4-5.0) gm/dl Globulin (2.5-4.0) gm/dl Albumin/Globulin Ratio (0.9-2) Urine Color Urine Appearance (Clear) Urine pH (4.5-7.5) Ur Specific [place] (1.000-1.030) Urine Protein (Negative) Urine Glucose (UA) (Negative) Urine Ketones (Negative) Urine Blood (Negative) Urine Nitrite (Negative) Urine Bilirubin (Negative) Urine Urobilinogen (Negative) Ur Leukocyte Esterase (Negative) Urine WBC (Auto) (0-5) /hpf Urine RBC (Auto) (0-4) /hpf U Hyaline Cast (Auto) (0-5) /lpf U Epithel Cells (Auto) (0-5) /lpf Urine Bacteria (Auto) (Negative) Granular Casts (0) /lpf COVID-19 Eval Order SARS-CoV-2 (PCR) (Negative) 03/13/21 03/12/21 03/12/21 Range/Units 00:02 19:30 19:30 WBC (4.8-10.8) K/uL RBC (4.2-5.4) M/uL Hgb (12.0-16.0) g/dL Hct (37-47) % MCV (80-100) fL MCH (25-34) pg MCHC (32-36) g/dL RDW Std Deviation (36.4-46.3) fL RDW Coeff of Chucky (11.5-14.5) % Plt Count (130-400) K/uL MPV (7.4-10.4) fL Immature Gran % (Auto) % Neut % (Auto) % Lymph % (Auto) % [place] % (Auto) % Eos % (Auto) % Baso % (Auto) % Neut # (Auto) (1.4-6.5) K/uL Lymph # (Auto) (1.2-3.4) K/uL [place] # (Auto) (0.11-0.59) K/uL Eos # (Auto) (0-0.5) K/uL Baso # (Auto) (0-0.2) K/uL Immature Gran # (Auto) (0.00-0.02) K/uL Sodium (136-145) mmol/L Potassium (3.5-5.1) mmol/L Chloride (98-107) mmol/L Carbon Dioxide (21-32) mmol/L Anion Gap (3-11) BUN (7-18) mg/dl Creatinine (0.6-1.2) mg/dl Est Cr Clr Drug Dosing ml/min Est GFR ( Amer) ml/min Est GFR (Non-Af Amer) ml/min BUN/Creatinine Ratio (10-20) Glucose (70-99) mg/dl POC Glucose 120 H (70-99) mg/dl Estimat Average Glucose mg/dl Hemoglobin A1c (4.5-5.6) % Calcium (8.5-10.1) mg/dl Total Bilirubin (0.2-1) mg/dl AST (15-37) U/L ALT (12-78) U/L Alkaline Phosphatase (45-117) U/L Total Protein (6.4-8.2) gm/dl Albumin (3.4-5.0) gm/dl Globulin (2.5-4.0) gm/dl Albumin/Globulin Ratio (0.9-2) Urine Color Urine Appearance (Clear) Urine pH (4.5-7.5) Ur Specific [place] (1.000-1.030) Urine Protein (Negative) Urine Glucose (UA) (Negative) Urine Ketones (Negative) Urine Blood (Negative) Urine Nitrite (Negative) Urine Bilirubin (Negative) Urine Urobilinogen (Negative) Ur Leukocyte Esterase (Negative) Urine WBC (Auto) (0-5) /hpf Urine RBC (Auto) (0-4) /hpf U Hyaline Cast (Auto) (0-5) /lpf U Epithel Cells (Auto) (0-5) /lpf Urine Bacteria (Auto) (Negative) Granular Casts (0) /lpf COVID-19 Eval Order Covid19 at [facility] SARS-CoV-2 (PCR) NEGATIVE (Negative) 03/12/21 03/12/21 Range/Units 16:00 16:00 WBC 9.12 (4.8-10.8) K/uL RBC 4.29 (4.2-5.4) M/uL Hgb 12.2 (12.0-16.0) g/dL Hct 35.8 L (37-47) % MCV 83.4 (80-100) fL MCH 28.4 (25-34) pg MCHC 34.1 (32-36) g/dL RDW Std Deviation 39.4 (36.4-46.3) fL RDW Coeff of Chucky 13.1 (11.5-14.5) % Plt Count 135 (130-400) K/uL MPV 10.2 (7.4-10.4) fL Immature Gran % (Auto) 0.2 % Neut % (Auto) 90.9 % Lymph % (Auto) 3.7 % [place] % (Auto) 4.9 % Eos % (Auto) 0.2 % Baso % (Auto) 0.1 % Neut # (Auto) 8.28 H (1.4-6.5) K/uL Lymph # (Auto) 0.34 L (1.2-3.4) K/uL [place] # (Auto) 0.45 (0.11-0.59) K/uL Eos # (Auto) 0.02 (0-0.5) K/uL Baso # (Auto) 0.01 (0-0.2) K/uL Immature Gran # (Auto) 0.02 (0.00-0.02) K/uL Sodium 134 L (136-145) mmol/L Potassium 3.8 (3.5-5.1) mmol/L Chloride 101 (98-107) mmol/L Carbon Dioxide 25 (21-32) mmol/L Anion Gap 8.0 (3-11) BUN 13 (7-18) mg/dl Creatinine 0.99 (0.6-1.2) mg/dl Est Cr Clr Drug Dosing 47.6 ml/min Est GFR ( Amer) 68.3 ml/min Est GFR (Non-Af Amer) 59.0 ml/min BUN/Creatinine Ratio 13.5 (10-20) Glucose 159 H (70-99) mg/dl POC Glucose (70-99) mg/dl Estimat Average Glucose mg/dl Hemoglobin A1c (4.5-5.6) % Calcium 9.2 (8.5-10.1) mg/dl Total Bilirubin 1.7 H (0.2-1) mg/dl AST 15 (15-37) U/L ALT 19 (12-78) U/L Alkaline Phosphatase 110 (45-117) U/L Total Protein 7.7 (6.4-8.2) gm/dl Albumin 3.3 L (3.4-5.0) gm/dl Globulin 4.4 H (2.5-4.0) gm/dl Albumin/Globulin Ratio 0.7 L (0.9-2) Urine Color Urine Appearance (Clear) Urine pH (4.5-7.5) Ur Specific [place] (1.000-1.030) Urine Protein (Negative) Urine Glucose (UA) (Negative) Urine Ketones (Negative) Urine Blood (Negative) Urine Nitrite (Negative) Urine Bilirubin (Negative) Urine Urobilinogen (Negative) Ur Leukocyte Esterase (Negative) Urine WBC (Auto) (0-5) /hpf Urine RBC (Auto) (0-4) /hpf U Hyaline Cast (Auto) (0-5) /lpf U Epithel Cells (Auto) (0-5) /lpf Urine Bacteria (Auto) (Negative) Granular Casts (0) /lpf COVID-19 Eval Order SARS-CoV-2 (PCR) (Negative) Diagnostic Findings A CT scan lumbar spine shows an acute L1 burst fracture with 60% loss of vertebr al body height and 6 mm of retropulsion resulting moderate central canal stenosis. 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
[2021-03-13] MEDS: MoRPHine SULFATE 2 MG/ML CARP IV PRN ×2 (16:43→21:35)
--- NOTE | 2021-03-13 17:25 | Anesthesiology Consultation ---
Date of Service March 13, 2021 Assessment & Plan (1) Encounter for pre-operative examination: Chart Review Chart Review: Patient NOT seen in Pre Admission Testing Consults Requested cardiac Additional Notes Pt admitted on the evening of 03/12/21 after a fall resulted in fracture of L1 vertebra with loss of height and retropulsion. Pt scheduled for non-elective surgical repair. Pt with complex medical history including CAD, paroxysmal afib, sick sinus syndrome status post ICD, ischemic cardiomyopathy now with normalized EF, type 2 DM, hypothyroidism and GERD. Pt follows closely with cardiology and has an extensive cardiac history as detailed in Dr. Gentile's recent note and copied below. Per recent cardiac visit 08/15/[address] Gentile "Her recent cardiovascular history occurred in May 2020 when she was seen for an acute visit due to intermittent left-sided chest pain over the previous 6 months. ECG at that time showed new deep anterior T wave inversions. Underwent cardiac catheterization 05/29/2020 revealed 90% mid LAD stenosis just after her prior stent along with a severely diseased D2. Her RCA stent was patent with minimal in-stent restenosis. She was again noted to have moderate to severe mid circumflex/proximal OM 2 disease and her small RCA was now shown to be chronically occluded. She underwent PCI with 2 overlapping NATI to the mid LAD. Procedure was uncomplicated and she was discharged same day. During post procedure follow-up, she noted increased energy. She continued to have intermittent exertional chest discomfort. Repeat ECG showed resolved T wave inversions. It was recommended she resume regular exercise and begin cardiac rehab. If she continued to be symptomatic, anginal therapy could be titrated." Pt's imdur was increased during this visit due to recent anginal symptoms relieved with nitroglycerine. Primary team has requested cardiology evaluate her in order to assist with pre/postoperative management. Anesthesia will follow and await cardiac eval uation and recommendations for planned surgical repair of L1 vertebral fracture. History Surgery Operation Date: 03/14/21 07:45 Proposed Procedures p T12-L2 Lumbar Decompression Fusion - Kain Lindsey DO Height/Weight Height: 5 ft 2 in Weight: 63.7 kg Allergies Allergy/AdvReac Type Severity Reaction Status Date / Time latex Allergy Intermediate HIVES Verified 03/12/21 20:21 adhesive Allergy Mild SKIN Verified 03/12/21 20:21 IRRITATION penicillin V Allergy Unknown Unknown Verified 03/12/21 20:21 aspirin AdvReac Mild STOMACH Verified 03/12/21 20:21 UPSET Medications Home Medications Medication Instructions Recorded Confirmed Last Taken carvedilol 6.25 mg tablet 6.25 mg PO BIDM 06/16/18 03/12/21 09/26/18 ergocalciferol (vitamin D2) 1,250 50,000 unit PO WK 06/16/18 03/12/21 09/26/18 mcg (50,000 unit) capsule (Vitamin D2) nitroglycerin 0.4 mg sublingual 0.4 mg SUBLINGUAL DIRECTED PRN 06/16/18 03/12/21 Unknown tablet (Nitrostat) metformin 500 mg tablet 500 mg PO BID 06/17/18 03/12/21 11/28/18 magnesium oxide 400 mg PO BID 09/27/18 03/12/21 11/28/18 aspirin 81 mg tablet,delayed 81 mg PO QAM 11/30/18 03/12/21 11/28/18 release blood sugar diagnostic (OneTouch #10 ea 03/01/19 01/07/21 Unknown Ultra Blue Test Strip) lancets (Foundation MedicineTouch UltraSoft #50 ea 03/01/19 01/07/21 Unknown Lancets) levothyroxine 50 mcg tablet 50 mcg PO DAILY #90 tab 03/01/19 03/12/21 Unknown alendronate 70 mg tablet (Fosamax) 70 mg PO WEEKLY tab 03/28/19 03/12/21 Unknown isosorbide mononitrate 120 mg 120 mg PO DAILY #30 tab 08/15/20 03/12/21 Unknown tablet,extended release 24 hr clopidogrel 75 mg tablet (Plavix) 75 mg PO DAILY #90 tab 09/04/20 03/12/21 Unknown atorvastatin 80 mg tablet 80 mg PO HS 03/12/21 03/12/21 Unknown famotidine 20 mg tablet 20 mg PO DAILY 03/12/21 03/12/21 Unknown hydroxyzine pamoate 25 mg capsule 25 mg PO DAILY PRN 03/12/21 03/12/21 Unknown omeprazole 20 mg capsule,delayed 20 mg PO DAILY 03/12/21 03/12/21 Unknown release oxybutynin chloride 5 mg tablet 5 mg PO BID 03/12/21 03/12/21 Unknown sertraline 100 mg tablet 100 mg PO DAILY 03/12/21 03/12/21 Unknown solifenacin 5 mg tablet (Vesicare) 5 mg PO DAILY 03/12/21 03/12/21 Unknown Active Medications Generic Name Dose Route Start Last Admin Trade Name Shahram PRN Reason Stop Dose Admin Aspirin 81 mg 03/13/21 09:00 03/13/21 10:29 Aspirin 81 Mg Ectab PO 04/12/21 08:59 Not Given QAM ARTIE Atorvastatin Calcium 40 mg 03/12/21 21:00 03/12/21 22:41 Atorvastatin 40 Mg Tab PO 04/11/21 20:59 40 mg QPM ARTIE Administration Carvedilol 6.25 mg 03/13/21 08:00 03/13/21 16:41 Carvedilol 6.25 Mg Tab PO 04/12/21 07:59 6.25 mg BIDM ARTIE Administration Heparin Sodium (Porcine) 5,000 units 03/13/21 06:00 03/13/21 14:02 Heparin Sod 5,000 Unit/0.5 Ml Vial SQ 04/12/21 05:59 5,000 units Q8 ARTIE Administration Hydrochlorothiazide 25 mg 03/13/21 09:00 03/13/21 10:29 Hydrochlorothiazide 25 Mg Tab PO 04/12/21 08:59 Not Given DAILY ARTIE Sodium Chloride 1,000 mls @ 100 mls/hr 03/12/21 20:00 03/12/21 22:43 Nss 1000ml IV 03/26/21 19:53 15 mls/hr .Q10H ARTIE Administration Insulin Aspart 0 units 03/13/21 00:00 03/13/21 17:38 Insulin Aspart 100 Units/Ml 3 Ml Pen SC 04/12/21 00:00 Not Given Q6 ARTIE Insulin Glargine 10 units 03/13/21 09:00 03/13/21 08:44 Insulin Glargine Solostar 100 Units/Ml 3 Ml Pen SC 04/12/21 08:59 10 units DAILY ARTIE Administration Isosorbide Mononitrate 120 mg 03/13/21 09:00 03/13/21 10:29 Isosorbide [place] Extended Rel 60 Mg Tabcr PO 04/12/21 08:59 Not Given DAILY ARTIE Levothyroxine Sodium 50 mcg 03/13/21 06:30 03/13/21 06:26 Levothyroxine Sodium 50 Mcg Tablet PO 04/12/21 06:29 Not Given DAILYBB ARTIE Lisinopril 5 mg 03/13/21 09:00 03/13/21 10:30 Lisinopril 5 Mg Tab PO 04/12/21 08:59 Not Given DAILY ARTIE Miscellaneous 1 ea 03/13/21 08:00 03/13/21 15:23 Solifenacin [Vesicare]: Order Awaiting Action N/A 04/12/21 07:59 Not Given QS ARTIE Morphine Sulfate 1 mg 03/13/21 15:54 03/13/21 16:43 Morphine Sulfate 2 Mg/Ml Carp IV 03/27/21 15:53 1 mg Q3HWA PRN Administration Pain Naloxone HCl 0.1 mg 03/12/21 19:52 03/13/21 08:20 Naloxone Hcl 0.4 Mg/1 Ml Vial/Carp IV 03/26/21 19:51 0.1 mg Q5M PRN Administration Oversedation/Resp Depression Protocol Oxybutynin Chloride 5 mg 03/13/21 09:00 03/13/21 10:30 Oxybutynin Chloride 5 Mg Tab PO 04/12/21 08:59 Not Given BID ARTIE Pantoprazole Sodium 40 mg 03/12/21 21:00 03/13/21 08:42 Pantoprazole 40 Mg Tab PO 04/11/21 20:59 40 mg BID ARTIE Administration Polyethylene Glycol 17 gm 03/13/21 09:00 03/13/21 08:44 Polyethylene (Miralax) 17 Gm Pack PO 04/12/21 08:59 Not Given DAILY ARTIE Senna/Docusate Sodium 1 tab 03/13/21 09:00 03/13/21 10:29 Docusate Sodium/Senna 50/8.6mg Tab PO 04/12/21 08:59 Not Given QAM ARTIE Sertraline HCl 100 mg 03/13/21 09:00 03/13/21 10:30 Sertraline Hcl 100 Mg Tablet PO 04/12/21 08:59 Not Given DAILY ARTIE Past Medical History Medical History Acid reflux disease with ulcer AF (paroxysmal atrial fibrillation) Alcohol abuse, unspecified Anxiety Anxiety disorder Anxiety state, unspecified Atrial fibrillation CAD (coronary artery disease) Cancer SKIN CANCER Cardiac arrest Cardiomyopathy Congestive cardiomyopathy Congestive heart failure, unspecified Cor athrscl-uns vessel Coronary artery disease Depression Depressive disorder, not elsewhere classified Diabetes mellitus, type 2 Dysphagia, oropharyngeal phase Fecal incontinence GERD (gastroesophageal reflux disease) Goiter Celia's thyroiditis HLD (hyperlipidemia) Hypertension Hypothyroidism PT DENIES. Ischemic cardiomyopathy Lumbago Lumbar compression fracture Ocular hypertension, unspecified eye Old myocardial infarct Other and unspecified hyperlipidemia Postmenopausal atrophic vaginitis Subclinical hypothyroidism Type 2 diabetes mellitus Unknown whether patient has any health problems Urinary tract infection FREQUENT Past Family History Family History Mother Family history of diabetes mellitus Blind Hearing loss Hypertension Allergies Asthma Sister Family history of diabetes mellitus Coronary heart disease Father No problems noted. Denies family history of No family history of adverse response to anesthesia No family history of bleeding disorder Heart disease Cancer Stroke Past Surgical History Surgical History History of appendectomy History of cardiac cath 1 STENT (2016 @ [facility]) History of cholecystectomy History of colonoscopy History of esophagogastroduodenoscopy (EGD) History of heart artery stent ADVISED TO BRING STENT CARD History of tonsillectomy S/P placement of cardiac pacemaker ~15-20 YEARS AGO. FOLLOWS WITH DR RUBI AND LAST CHECKED 4 MONTHS AGO Social History Smoking Status: Never smoker Hx Alcohol Use: Yes Alcohol type: beer and hard liquor alcohol intake frequency: a few times a week Hx Substance Use: No substance use type: does not use Physical Exam Vital Signs Last Vital Signs Temp 37.4 C 03/13/21 15:10 Pulse 100 H 03/13/21 15:10 Resp 20 03/13/21 15:10 BP 168/90 H 03/13/21 15:10 Pulse Ox 91 03/13/21 15:10 Testing Laboratory Results 03/13/21 06:08 03/13/21 06:08 Hemoglobin A1c 6.5 % (4.5-5.6) H 03/13/21 06:08 Urine Color Dark Yellow 03/13/21 13:35 Urine Appearance Cloudy (Clear) A 03/13/21 13:35 Urine pH 5.5 (4.5-7.5) 03/13/21 13:35 Ur Specific [place] 1.021 (1.000-1.030) 03/13/21 13:35 Urine Protein 3+ (Negative) H 03/13/21 13:35 Urine Glucose (UA) Negative (Negative) 03/13/21 13:35 Urine Ketones Trace (Negative) H 03/13/21 13:35 Urine Nitrite Positive (Negative) A 03/13/21 13:35 Ur Leukocyte Esterase Trace (Negative) H 03/13/21 13:35 Urine WBC (Auto) >30 /hpf (0-5) H 03/13/21 13:35 Urine RBC (Auto) 5-10 /hpf (0-4) H 03/13/21 13:35 U Hyaline Cast (Auto) 10-30 /lpf (0-5) H 03/13/21 13:35 U Epithel Cells (Auto) 10-20 /lpf (0-5) H 03/13/21 13:35 Urine Bacteria (Auto) 4+ (Negative) H 03/13/21 13:35 03/13/21 03/13/21 03/13/21 17:13 12:17 06:19 POC Glucose 117 H 139 H 141 H Electrocardiogram Date: 03/12/21 Findings: + NSR @ (79) 1st degree A-V block, Left axis deviation, Voltage criteria for left ventricular hypertrophy, Cannot rule out Septal infarct, age undetermined, Abnormal ECG When compared with ECG of 29-MAY-2020 12:01, Minimal criteria for Septal infarct are now Present, Nonspecific T wave abnormality now evident in Inferior leads, T wave inversion no longer evident in Anterior leads Echocardiogram Date: 11/23/19 EF: 55-60% LV Function: normal RWMA: + hypokinetic (mild anterior apical hypokinesis) Other Findings: + diastolic dysfunction (grade 1) Valvular Disease: + no significant valvular disease
--- NOTE | 2021-03-13 17:42 | XRay Report ---
XR chest 1V portable CLINICAL HISTORY: pre op COMPARISON STUDY: November 30, 2018 FINDINGS: No definite pneumothorax seen however left apex is obscured by patient's clavicle and wires of the le ft-sided pacemaker. Limited exam due to rotation.. No pleural effusion. Lung volumes are decreased with crowded lung markings. Reticular opacities are seen within the right upper lung and over left hemithorax which is partially obscured by overlying battery pack of triple l ead AICD. Cardiomediastinal silhouette is within upper limits of normal. Pulmonary vasculature is obscured.. Osseous structures: Minimal degenerative changes of the spine. IMPRESSION: 1. Reticular opacities within bilateral lungs which could be due to scarring, pulmonary edema or inf iltrative process.. Suboptimal study due to low inspiratory effort. Further evaluation with PA and la teral chest radiograph is suggested. 2. The rest of findings as above. ACT 112: Negative or not required by law. The above report was generated using voice recognition software. It may contain grammatical, syntax o r spelling errors. Electronically signed by: Dorothy Moeller DO 03/13/2021 5:41 PM
--- NOTE | 2021-03-13 17:47 | Cardiology Consultation ---
Date of Consultation March 13, 2021 Assessment & Plan (1) Coronary artery disease: (2) ICD (implantable cardioverter-defibrillator), biventricular, in situ: (3) Ischemic cardiomyopathy: 1. Coronary artery disease: Give history of multivessel PCI. She continues to have some symptoms of chest discomfort although these are atypical. She is not appear to have unstable symptoms. She will continue aggressive secondary prevention with high-dose atorvastatin and dual anti-platelet therapy 2. Cardiomyopathy: Resolved on last echocardiogram. Normal function of a biventricular ICD. She appears well compensated currently. 3. Normally functioning biventricular ICD, [employer] She appears to be an acceptable risk for the proposed surgery. While she does have significant coronary artery disease, it is unlikely that her symptoms represent unstable coronary syndrome. She has preserved LV systolic function and no evidence of decompensated heart failure. No unstable arrhythmias. No significant valvular heart disease. Blood pressure appears to be well controlled currently. She should continue her carvedilol in the perioperative period. Her last percutaneous coronary intervention was May of last year and Plavix can reasonably to be discontinued in the perioperative period. Continuing aspirin would be recommended. She has a biventricular ICD and a magnet should be applied during her procedure. It is not possible due to patient positioning reprogramming the device to deactivate therapies but continue pacing should be performed. As with all patients of this nature, efforts should be made to avoid significant blood loss, anemia, hypoxia, severe hypertension, hypotension or tachycardia. History of Present Illness Reason for Consultation: Coronary artery disease Requesting Physician: Racquel Attending Physician: Sarbjit Clement DO History of Present Illness The patient is a 65-year-old woman with an extensive history of coronary artery disease, prior ischemic cardiomyopathy, hypertension, diabetes and prior biventricular ICD implantation who unfortunately suffered a mechanical injury fracturing 1 of her lumbar vertebrae. This resulted in significant discomfort. Patient is scheduled to undergo operative repair. Patient is known to have some episodes of chest pain at times. In the past these were not all felt to represent true coronary insufficiency or angina. Patient states she continues to get episodes of chest discomfort but could not relate the frequency. She states that the episodes themselves feel like stabbing pain. The duration can be a few minutes. It is unclear if these happen exclusively with exertion or can occur at rest. Unfortunately, the patient had received narcotic analgesics and was a difficult historian at the time of my interview. She states she does walk her dogs fairly regularly. Time she will be limited by some dyspnea. But she does not appear to be limited by chest discomfort. She denied periods of dizziness or lightheadedness. She has not been aware of palpitations recently she did not describe edema of her lower extremities. Allergies Allergy/AdvReac Type Severity Reaction Status Date / Time latex Allergy Intermediate HIVES Verified 03/12/21 20:21 adhesive Allergy Mild SKIN Verified 03/12/21 20:21 IRRITATION penicillin V Allergy Unknown Unknown Verified 03/12/21 20:21 aspirin AdvReac Mild STOMACH Verified 03/12/21 20:21 UPSET Home Medications Medication Instructions Recorded Confirmed Type carvedilol 6.25 mg tablet 6.25 mg PO BIDM 06/16/18 03/12/21 History ergocalciferol (vitamin D2) 1,250 50,000 unit PO WK 06/16/18 03/12/21 History mcg (50,000 unit) capsule (Vitamin D2) nitroglycerin 0.4 mg sublingual 0.4 mg SUBLINGUAL DIRECTED PRN 06/16/18 03/12/21 History tablet (Nitrostat) metformin 500 mg tablet 500 mg PO BID 06/17/18 03/12/21 History magnesium oxide 400 mg PO BID 09/27/18 03/12/21 History aspirin 81 mg tablet,delayed 81 mg PO QAM 11/30/18 03/12/21 History release blood sugar diagnostic (OneTouch #10 ea 03/01/19 01/07/21 History Ultra Blue Test Strip) lancets (ZowPowTouch UltraSoft #50 ea 03/01/19 01/07/21 History Lancets) levothyroxine 50 mcg tablet 50 mcg PO DAILY #90 tab 03/01/19 03/12/21 History alendronate 70 mg tablet (Fosamax) 70 mg PO WEEKLY tab 03/28/19 03/12/21 History isosorbide mononitrate 120 mg 120 mg PO DAILY #30 tab 08/15/20 03/12/21 Rx tablet,extended release 24 hr clopidogrel 75 mg tablet (Plavix) 75 mg PO DAILY #90 tab 09/04/20 03/12/21 Rx atorvastatin 80 mg tablet 80 mg PO HS 03/12/21 03/12/21 History famotidine 20 mg tablet 20 mg PO DAILY 03/12/21 03/12/21 History hydroxyzine pamoate 25 mg capsule 25 mg PO DAILY PRN 03/12/21 03/12/21 History omeprazole 20 mg capsule,delayed 20 mg PO DAILY 03/12/21 03/12/21 History release oxybutynin chloride 5 mg tablet 5 mg PO BID 03/12/21 03/12/21 History sertraline 100 mg tablet 100 mg PO DAILY 03/12/21 03/12/21 History solifenacin 5 mg tablet (Vesicare) 5 mg PO DAILY 03/12/21 03/12/21 History Patient History Medical History Acid reflux disease with ulcer AF (paroxysmal atrial fibrillation) Alcohol abuse, unspecified Anxiety Anxiety disorder Anxiety state, unspecified Atrial fibrillation CAD (coronary artery disease) Cancer SKIN CANCER Cardiac arrest Cardiomyopathy Congestive cardiomyopathy Congestive heart failure, unspecified Cor athrscl-uns vessel Coronary artery disease Depression Depressive disorder, not elsewhere classified Diabetes mellitus, type 2 Dysphagia, oropharyngeal phase Fecal incontinence GERD (gastroesophageal reflux disease) Goiter Celia's thyroiditis HLD (hyperlipidemia) Hypertension Hypothyroidism PT DENIES. Ischemic cardiomyopathy Lumbago Lumbar compression fracture Ocular hypertension, unspecified eye Old myocardial infarct Other and unspecified hyperlipidemia Postmenopausal atrophic vaginitis Subclinical hypothyroidism Type 2 diabetes mellitus Unknown whether patient has any health problems Urinary tract infection FREQUENT Surgical History History of appendectomy History of cardiac cath 1 STENT (2016 @ [facility]) History of cholecystectomy History of colonoscopy History of esophagogastroduodenoscopy (EGD) History of heart artery stent ADVISED TO BRING STENT CARD History of tonsillectomy S/P placement of cardiac pacemaker ~15-20 YEARS AGO. FOLLOWS WITH DR RUBI AND LAST CHECKED 4 MONTHS AGO Family History Mother Family history of diabetes mellitus Blind Hearing loss Hypertension Allergies Asthma Sister Family history of diabetes mellitus Coronary heart disease Father No problems noted. Denies family history of No family history of adverse response to anesthesia No family history of bleeding disorder Heart disease Cancer Stroke Social History Smoking Status: Never smoker Second Hand Exposure: No; Hx Alcohol Use: Yes Alcohol type: beer and hard liquor Alcohol Intake Frequency: 2-3 x/Week Hx Substance Use: No Preferred Language: Cambodian Communication Ability: Effective Instantizer Operator Required: No Beliefs That Will Affect Care: None marital status: Current Living Situation: Spouse How many Children do You have: 1 Feels Safe at Home: Yes Safety Concerns: Feels Safe At This Time Assistive Devices: Oxygen - Continuous Review of Systems Review of Systems: Unobtainable due to reduced consciousness Physical Exam Physical Exam: She is alert and oriented x3. Uncomfortable. Mood affect appear normal. She answered all questions appropriately. Somewhat sedated. HEENT: Sclerae are anicteric. Pupils are equal and reactive to light and accommodation. Extraocular movements were intact. Neuro: Cranial nerves intact Lungs: Lungs are clear to auscultation bilaterally. There are no rales wheezes or rhonchi. She has normal respiratory effort without use of accessory muscles. There is normal pulmonary excursion. Cardiac: The rhythm was regular. S1 and S2 were normal. There are no murmurs on examination. The PMI was not markedly displaced on palpation. Abdomen: The abdomen was soft and nontender. Extremities: Patient has bilateral radial pulses that are equal in intensity. There is no evidence cyanosis or clubbing. Skin: There are no rashes noted on examination today. Results & Data ([facility]) Vital Signs (Past 12 Hours) Vital Signs Temp Pulse Resp BP Pulse Ox 03/13/21 15:10 37.4 C 100 H 20 168/90 H 91 03/13/21 07:52 36.9 C 117 H 20 178/84 H 90 Laboratory Results Abnormal Lab Results 03/12/21 03/12/21 03/13/21 19:30 19:30 00:02 WBC RBC Hgb Hct MCV MCH MCHC RDW Std Deviation RDW Coeff of Chucky Plt Count MPV Sodium Potassium Chloride Carbon Dioxide Anion Gap BUN Creatinine Est Cr Clr Drug Dosing Est GFR ( Amer) Est GFR (Non-Af Amer) BUN/Creatinine Ratio Glucose POC Glucose 120 H Estimat Average Glucose Hemoglobin A1c Calcium Urine Color Urine Appearance Urine pH Ur Specific [place] Urine Protein Urine Glucose (UA) Urine Ketones Urine Blood Urine Nitrite Urine Bilirubin Urine Urobilinogen Ur Leukocyte Esterase Urine WBC (Auto) Urine RBC (Auto) U Hyaline Cast (Auto) U Epithel Cells (Auto) Urine Bacteria (Auto) Granular Casts COVID-19 Eval Order Covid19 at [facility] SARS-CoV-2 (PCR) NEGATIVE Crossmatch 03/13/21 03/13/21 03/13/21 06:08 06:08 06:08 WBC 7.54 RBC 4.48 Hgb 12.8 Hct 37.6 MCV 83.9 MCH 28.6 MCHC 34.0 RDW Std Deviation 40.0 RDW Coeff of Chucky 13.2 Plt Count 134 MPV 10.7 H Sodium 135 L Potassium 4.1 Chloride 100 Carbon Dioxide 27 Anion Gap 8.0 BUN 17 Creatinine 1.02 Est Cr Clr Drug Dosing 46.9 Est GFR ( Amer) 65.9 Est GFR (Non-Af Amer) 56.9 BUN/Creatinine Ratio 17.0 Glucose 137 H POC Glucose Estimat Average Glucose 140 Hemoglobin A1c 6.5 H Calcium 9.4 Urine Color Urine Appearance Urine pH Ur Specific [place] Urine Protein Urine Glucose (UA) Urine Ketones Urine Blood Urine Nitrite Urine Bilirubin Urine Urobilinogen Ur Leukocyte Esterase Urine WBC (Auto) Urine RBC (Auto) U Hyaline Cast (Auto) U Epithel Cells (Auto) Urine Bacteria (Auto) Granular Casts COVID-19 Eval Order SARS-CoV-2 (PCR) Crossmatch 03/13/21 03/13/21 03/13/21 06:19 12:17 13:35 WBC RBC Hgb Hct MCV MCH MCHC RDW Std Deviation RDW Coeff of Chucky Plt Count MPV Sodium Potassium Chloride Carbon Dioxide Anion Gap BUN Creatinine Est Cr Clr Drug Dosing Est GFR ( Amer) Est GFR (Non-Af Amer) BUN/Creatinine Ratio Glucose POC Glucose 141 H 139 H Estimat Average Glucose Hemoglobin A1c Calcium Urine Color Dark Yellow Urine Appearance Cloudy A Urine pH 5.5 Ur Specific [place] 1.021 Urine Protein 3+ H Urine Glucose (UA) Negative Urine Ketones Trace H Urine Blood 3+ H Urine Nitrite Positive A Urine Bilirubin 1+ H Urine Urobilinogen Negative Ur Leukocyte Esterase Trace H Urine WBC (Auto) >30 H Urine RBC (Auto) 5-10 H U Hyaline Cast (Auto) 10-30 H U Epithel Cells (Auto) 10-20 H Urine Bacteria (Auto) 4+ H Granular Casts 5-10 H COVID-19 Eval Order SARS-CoV-2 (PCR) Crossmatch 03/13/21 03/13/21 15:47 17:13 WBC RBC Hgb Hct MCV MCH MCHC RDW Std Deviation RDW Coeff of Chucky Plt Count MPV Sodium Potassium Chloride Carbon Dioxide Anion Gap BUN Creatinine Est Cr Clr Drug Dosing Est GFR ( Amer) Est GFR (Non-Af Amer) BUN/Creatinine Ratio Glucose POC Glucose 117 H Estimat Average Glucose Hemoglobin A1c Calcium Urine Color Urine Appearance Urine pH Ur Specific [place] Urine Protein Urine Glucose (UA) Urine Ketones Urine Blood Urine Nitrite Urine Bilirubin Urine Urobilinogen Ur Leukocyte Esterase Urine WBC (Auto) Urine RBC (Auto) U Hyaline Cast (Auto) U Epithel Cells (Auto) Urine Bacteria (Auto) Granular Casts COVID-19 Eval Order SARS-CoV-2 (PCR) Crossmatch See Detail Diagnostic Findings Cardiac catheterization 05/29/2020: PCI to the LAD with residual D2 and D3 disease. 100% occlusion of a ramus intermedius. Nonobstructive disease involving the left circumflex. Prior PCI to the RCA without significant InStent restenoses. Stress echocardiogram performed 02/16/2020: No evidence of inducible ischemia. Normal LV systolic function. No significant valvular heart disease. PG Care Time/CCT Total # of Minutes Spent Total Time Spent with Patient: Total time spent is greater than 50% in coordination of care (as documented) at patient's floor/unit and/or counseling patient: Coding Level of Care Code 02579 Initial Inpt Care Lvl 3 Diagnoses Coronary artery disease I25.10 ICD (implantable cardioverter-defibrillator), biventricular, in situ Z95.810 Ischemic cardiomyopathy I25.5
--- NOTE | 2021-03-13 19:04 | Electrocardiogram Report ---
Test Reason : Blood Pressure : / mmHG Vent. Rate : 079 BPM Atrial Rate : 079 BPM P-R Int : 226 ms QRS Dur : 100 ms QT Int : 368 ms P-R-T Axes : 003 -40 044 degrees QTc Int : 421 ms Poor data quality, interpretation may be adversely affected Sinus rhythm with 1st degree A-V block Left axis deviation Voltage criteria for left ventricular hypertrophy Nonspecific ST abnormality Abnormal ECG When compared with ECG of 29-MAY-2020 12:01, Nonspecific T wave abnormality now evident in Inferior leads T wave inversion no longer evident in Anterior leads Confirmed by Burt Vega ([id number]) on 03/13/2021 7:03:59 PM Referred By: REFERRED SELF Confirmed By:Mark Vega
[2021-03-13] MEDS: SODIUM CHLORIDE 0.9% 1000ML 1,000 ML IV SCH (20:16)
[2021-03-13] MEDS: ATORVASTATIN 40 MG TAB PO SCH (20:18)
[2021-03-13] MEDS ORDERED: ACETAMINOPHEN 1000 MG/100 ML IV IV STA (23:43)
[2021-03-14] MEDS: INSULIN ASPART 100 UNITS/ML 3 ML PEN SC SCH ×5 (00:11→21:19)
[2021-03-14] MEDS: SODIUM CHLORIDE 0.9% 1000ML 1,000 ML IV SCH (04:02)
[2021-03-14] MEDS: LEVOTHYROXINE SODIUM 50 MCG TABLET PO SCH (04:03)
[2021-03-14] MEDS ORDERED: CLINDAMYCIN 600 MG/54 ML BAG IV SCH (06:00)
[2021-03-14] MEDS: MoRPHine SULFATE 2 MG/ML CARP IV PRN (06:09)
[2021-03-14] MEDS ORDERED: DEXAMETHASONE SOD INJ 4 MG/ML VIAL ONE (06:51)
[2021-03-14] MEDS ORDERED: PROPOFOL IV EMULSION 10 MG/ML 20 ML VIAL IV ONE (06:51)
[2021-03-14] MEDS ORDERED: ONDANSETRON INJ 2 MG/ML 2 ML VIAL ONE (06:51)
[2021-03-14] MEDS ORDERED: NEOSTIGMINE METHYLSULFATE 1 MG/ML 10ML VIAL ONE (06:51)
[2021-03-14] MEDS ORDERED: GLYCOPYRROLATE 0.2 MG/ML VIAL ONE (06:51)
[2021-03-14] MEDS ORDERED: LIDOCAINE 2% 2 ML VIAL/AMP(20MG/ML) INFIL ONE (06:51)
[2021-03-14] MEDS ORDERED: MIDAZOLAM HCL 1 MG/ML 2ML VIAL ONE (06:52)
[2021-03-14] MEDS ORDERED: fentaNYL citrate 100 MCG/2 ML VIAL ONE (06:52)
[2021-03-14 06:56] LABS: Basophils # (auto) 0.01 K/uL (0-0.2); Basophils % (auto) 0.2 %; Eosinophils # (auto) 0.06 K/uL (0-0.5); Eosinophils % (auto) 1.1 %; Immature Granulocytes # (auto) 0.01 K/uL (0.00-0.02); Immature Granulocytes % (auto) 0.2 %; Lymphocytes # (auto) 0.43 K/uL (1.2-3.4); Lymphocytes % (auto) 8.2 %; Mean Corpuscular Hemoglobin 27.8 pg (25-34); Mean Corpuscular Hgb Conc 32.4 g/dL (32-36); Mean Corpuscular Volume 86.1 fL (80-100); Mean Platelet Volume 10.3 fL (7.4-10.4); Monocytes # (auto) 0.29 K/uL (0.11-0.59); Monocytes % (auto) 5.6 %; Neutrophils # (auto) 4.42 K/uL (1.4-6.5); Neutrophils % (auto) 84.7 %; Platelet Count 134 K/uL (130-400); RDW Coefficient of Variation 13.1 % (11.5-14.5); RDW Standard Deviation 42.1 fL (36.4-46.3); Red Blood Count 3.95 M/uL (4.2-5.4); White Blood Count 5.22 K/uL (4.8-10.8)
--- NOTE | 2021-03-14 07:28 | History & Physical Bridge Note ---
Date of Service March 14, 2021 History & Physical Bridge Note I have examined the patient, reviewed the History & Physical and in the interval since the performance of the History & Physical I have noted the following changes of clinical significance: no changes noted Decompression fusion T12-L2
[2021-03-14 07:32] LABS: BUN Creatinine Ratio 21.5 (10-20); Calcium 8.5 mg/dl (8.5-10.1); Creatinine Clr Calc Pharmacy 39.6 ml/min; Est GFR (African American) 53.6 ml/min; Est GFR (Non-African American) 46.3 ml/min; Potassium 4.4 mmol/L (3.5-5.1)
[2021-03-14] MEDS ORDERED: EPINEPHrine INJ 1 MG/ML AMP ONE (07:33)
[2021-03-14] MEDS ORDERED: BUPIVACAINE 0.5 % 5 MG/1 ML MPF 30ML VIAL ONE (07:33)
[2021-03-14] MEDS ORDERED: CLINDAMYCIN 600 MG/54 ML D5W IV ONE (07:35)
[2021-03-14] MEDS ORDERED: ePHEDrine sulfate 50 MG/ML AMP IV PRN (08:33)
[2021-03-14] MEDS ORDERED: HYDROmorphone INJ 1 MG/ML SYRINGE IV PRN ×2 (08:33→11:44)
[2021-03-14] MEDS ORDERED: ATROPINE SULFATE 0.1 MG/ML 10ML SYR IV PRN (08:33)
[2021-03-14] MEDS ORDERED: ONDANSETRON INJ 2 MG/ML 2 ML VIAL IV PRN (08:33)
[2021-03-14] MEDS ORDERED: fentaNYL citrate 100 MCG/2 ML VIAL IV PRN (08:33)
[2021-03-14] MEDS ORDERED: HYDROmorphone INJ 2 MG/ML SYR/VIAL ONE (08:51)
[2021-03-14] MEDS ORDERED: PHENYLEPHRINE 100MCG/ML 5ML SYR ONE (08:51)
[2021-03-14] MEDS ORDERED: ROCURONIUM BROMIDE 10 MG/ML 5 ML VIAL IV ONE (08:51)
[2021-03-14] MEDS ORDERED: PHENYLEPHRINE HCL 10 MG/ML VIAL ONE (08:59)
[2021-03-14] MEDS ORDERED: ePHEDrine sulfate 50 MG/ML SYR ONE (09:06)
[2021-03-14] MEDS ORDERED: IOPAMIDOL INJ 61% 15 ML VIAL INSTIL ONE (09:17)
[2021-03-14] MEDS ORDERED: FLOSEAL HEMOSTATIC MATRIX 10ML TOP ONE (09:18)
--- NOTE | 2021-03-14 09:46 | Operative Report ---
Post Operative Report Pre & Post Diagnosis Operation Date: 03/14/21 07:45 Pre-Op Diagnosis: L1 burst fracture Post-Op Diagnosis: Same I identified the patient and participated in the time-out.: Yes Procedure Operation Date: 03/14/21 07:45 Actual Procedures #1 lumbar decompression with bilateral medial facetectomies T12-L1 L1-L2. #2 posterior spinal fusion T12-L2. #3 placement posterior instrumentation T12-L2. #4 kyphoplasty L1 vertebral body. #5 placement locally harvested morselized autograft in the posterior gutters. #6 please infuse collagen sponge, master graft in the posterior gutters T12-L2. Surgeon Kain Lindsey, Smash Piecer Jessika Childers Estimated Blood Loss 50 Findings Consistent with Post-Op Diagnosis Specimens None Indications This is a 65-year-old female presents with an acute L1 burst fracture. Secondary to the marked instability and neurologic sequelae we underwent urgent stabilization. Description of Procedure Patient was met with identified informed consent obtained. Patient was then taken to the operative suite underwent a patient placed in a prone position the Raymundo table chest pad and hip bolsters. The third arm spine is and prepped and draped in a sterile fashion. Sharp dissection with assisted Bovie cautery performed down to and exposing T12-L2. Then performed complete laminectomy of L1 partial laminectomy L2 including bilateral medial facetectomies for canal decompression. Then performed a kyphoplasty of L1. I injected approximately 6 cc of Kyphon cement within the vertebral body demonstrating excellent interdigitation and fill. After this complete pedicle screws were placed in T12 and L1 bilaterally with assistance of fluoroscopy. I did use the remainder of the Kyphon cement to cement the screws in place. Proper size rods were then contoured and locked in position bilaterally. The transverse processes of T12- L1 and L2 were then burred to subcortical bleeding bone. Infuse collagen sponge master graft and local autograft was placed in the posterior gutters. 15 round CAMI drain inserted. Incision was then closed with 1 Vicryl fascia 2-0 Vicryl subcutaneously and 4 Monocryl for final skin closure. Steri-Strips dressings placed. Patient will continue PACU stable condition. Please note spinal cord monitoring was utilized at the procedure no changes noted. Lastly Jessika Childers was present at the entire surgery involved in patient positioning complex portions of the surgery and final skin closure. I attest to the content of the Intraoperative Record and any orders documented therein. Any exceptions are noted below.
[2021-03-14] MEDS ORDERED: LABETALOL HCL IV 5 MG/ML 20ML IV STA (10:25)
[2021-03-14] MEDS ORDERED: LABETALOL HCL IV 5 MG/ML 20ML IV ONE (10:26)
--- NOTE | 2021-03-14 10:58 | Anesthesiology Progress Note ---
Date of Service March 14, 2021 Anesthesia Post Procedure Vital Signs Vital Signs: Temp Pulse Pulse Pulse Resp BP BP 03/14/21 10:50 80 19 157/61 H 169/73 H 03/14/21 10:40 78 15 175/66 H 179/96 H 03/14/21 10:30 87 18 175/81 H 174/67 H 03/14/21 10:20 102 H 20 193/105 H 185/70 H 03/14/21 10:10 104 H 17 194/110 H 03/14/21 10:04 36.4 C L 101 H 22 169/106 H 03/14/21 07:03 36.8 C 73 20 127/69 03/13/21 23:17 38.5 C H 84 15 139/77 03/13/21 15:10 37.4 C 100 H 20 168/90 H Pulse Ox 03/14/21 10:50 97 03/14/21 10:40 97 03/14/21 10:30 97 03/14/21 10:20 96 03/14/21 10:10 96 03/14/21 10:04 96 03/14/21 07:03 98 03/13/21 23:17 97 03/13/21 15:10 91 Pain Intensity Lower Back: Pain Intensity: 10 Transfer of Care Handoff Completed per policy Notes Mental Status: alert / awake / arousable and participated in evaluation Patient Amnestic to Procedure: Yes Nausea / Vomiting: adequately controlled Pain: adequately controlled Airway Patency, RR, SpO2: stable & adequate BP & HR: stable & adequate Hydration State: stable & adequate Anesthetic Complications: no major complications apparent and Pt Satisfied with anesthetic care
[2021-03-14] MEDS ORDERED: METOCLOPRAMIDE HCL INJ 5 MG/ML 2 ML VIAL IV PRN (11:44)
[2021-03-14] MEDS ORDERED: PROMETHAZINE HCL 12.5 MG in SODIUM CHLORIDE 0.9% 50 ML IV PRN (11:44)
[2021-03-14] MEDS ORDERED: NALOXONE HCL 0.4 MG/1 ML VIAL/CARP IV PRN (11:44)
[2021-03-14] MEDS ORDERED: DO NOT ADMINISTER FLU VACCINE PRN (11:44)
[2021-03-14] MEDS ORDERED: ONDANSETRON 4 MG OD TAB PO PRN (11:44)
[2021-03-14] MEDS ORDERED: diphenhydrAMINE Capsule 25 MG CAP PO PRN (11:44)
[2021-03-14] MEDS ORDERED: FAMOTIDINE 20 MG TAB PO PRN (11:44)
[2021-03-14] MEDS ORDERED: hydrOXYzine HCl 25 MG TAB PO PRN (11:44)
[2021-03-14] MEDS ORDERED: ACETAMINOPHEN 500 MG TAB PO PRN (11:44)
[2021-03-14] MEDS ORDERED: ALUMINUM/MAGNESIUM SUSP 30 ML UDC PO PRN (11:44)
[2021-03-14] MEDS ORDERED: bisacodyL 10 MG SUPP PR PRN (11:44)
[2021-03-14] MEDS ORDERED: SOD PHOSPHATE/SOD BIPHOSPHATE ENEMA 132 ML BTL PR PRN (11:44)
[2021-03-14] MEDS ORDERED: MAGNESIUM HYDROXIDE SUSP 30 ML UDC PO PRN (11:44)
[2021-03-14] MEDS ORDERED: DO NOT ADMINISTER PNEUMOCOCCAL VACCINE PRN (11:44)
[2021-03-14] MEDS ORDERED: ACETAMINOPHEN 1,000 MG/100 ML VIAL IV PRN (11:44)
[2021-03-14] MEDS ORDERED: LORazepam 0.5 MG TAB PO PRN (11:44)
[2021-03-14] MEDS ORDERED: LORazepam 0.5 MG/1 ML VIAL IV PRN (11:44)
--- NOTE | 2021-03-14 11:45 | Fluoroscopy Report ---
CLINICAL INDICATION: MN ^T12-L2 DECOMPRESSION AND FUSION. TECHNIQUE: 2 views were obtained with the C-arm in the OR with the above procedure. Total fluoroscopy time was 123 seconds. Total skin dose was 84.1 mGy. Comparison: Comparison is made to CT lumbar spine 03/12/2021 FINDINGS/IMPRESSION: 2 intraoperative images of kyphoplasty. Please correlate with intraoperative fluoroscopy and operative report. ACT 112: Negative or not required by law. Electronically signed by: Tao Sesay M.D. 03/14/2021 11:44 AM
[2021-03-14] MEDS: carvediloL 6.25 MG TAB PO SCH ×2 (11:50→16:07)
[2021-03-14] MEDS: ASPIRIN 81 MG ECTAB PO SCH (11:50)
[2021-03-14] MEDS: DOCUSATE SODIUM/SENNA 50/8.6MG TAB PO SCH ×2 (11:50→20:43)
[2021-03-14] MEDS: hydroCHLOROthiazide 25 MG TAB PO SCH (11:50)
[2021-03-14] MEDS: OXYBUTYNIN CHLORIDE 5 MG TAB PO SCH ×2 (11:51→20:43)
[2021-03-14] MEDS: PANTOprazole 40 MG TAB PO SCH ×2 (11:51→20:43)
[2021-03-14] MEDS: ISOSORBIDE MONO EXTENDED REL 60 MG TABCR PO SCH (11:51)
[2021-03-14] MEDS: SERTRALINE HCL 100 MG TABLET PO SCH (11:51)
[2021-03-14] MEDS: POLYETHYLENE (MIRALAX) 17 GM PACK PO SCH (11:51)
[2021-03-14] MEDS: INSULIN GLARGINE SOLOSTAR 100 UNITS/ML 3 ML PEN SC SCH (11:53)
--- NOTE | 2021-03-14 12:08 | Hospitalist Progress Note ---
Date of Service March 14, 2021 Assessment & Plan (1) Fracture of L1 vertebra: Plan: Codi is a 65-year-old female with a history of osteoporosis, SSS s/p ICD placement, CAD s/p PCI of LAD and RCA, ischemic cardiomyopathy, pAF, HTN, T2DM, MDD, hypothyroidism, GERD who presented to [facility] following a mechanical fall at home, found to have an L1 burst fracture with retropulsion and canal stenosis. She is hemodynamically stable and now s/p decompression by Dr. Lindsey on 03/14. L1 Burst Fracture -- with retropulsion and canal stenosis; in setting of known osteoporosis * Mechanical fall at home on 03/12 resulting in "L1 burst fracture with 60% loss of vertebral body height and retropulsion with moderate-grade canal stenosis ... possible small posterior epidural hematoma" * Evaluated by Cardiology given significant cardiac history -- Continue mediations for secondary-prevention -- Continue carvedilol during perioperative period * s/p urgent decompression, fusion by Dr. Lindsey (orthopedics) on 03/14 * Continue SCDs * Monitor UOP * Monitor H&H * Incentive spirometry * Pain: Tylenol > oxycodone > Dilaudid * PT, OT when appropriate SSS s/p ICD Placement, CAD s/p NATI of LAD+RCA, H/O Ischemic Cardiomyopathy * Patient does have baseline atypical chest pain / angina relieved with nitroglycerin * In NSR on exam -- no evidence of arrhythmia since arrival here * Hold ASA, Plavix * Resume lisinopril tomorrow AM * Continue home Imdur 120mg / day * Continue medications for secondary prevention T2DM * A1c 6.5% -- at goal * SSI if needed, hold for now * Resume metformin upon discharge Depression * Stable, continue sertraline Osteoporosis * Continue Fosamax, Vitamin D Hypothyroidism * Continue levothyroxine GERD * Continue PPI Code: FULL CODE Diet: CC diet PPX: SCDs, ASA Dispo: MS/T Consults: ortho, orthotics, PT when appropriate (2) Coronary artery disease: (3) Fatigue: (4) ICD (implantable cardioverter-defibrillator), biventricular, in situ: (5) Unstable angina: (6) Ischemic cardiomyopathy: (7) Hypothyroidism: (8) Osteoporosis: Admission and Anticipated Discharge Date Admission Date: March 12, 2021 Supervising Physician Co-Signing Physician Notes I saw the patient separately from the resident physician and confirmed vega portions of the history and physical examination. I examined the patient around 5 PM this evening. She was on the floor, seated in bed, eating her dinner. She does note some pain in her low back, though she tells me this is improved compared to preoperative. She tells me that her appetite really is not there quite yet. She denies any abdominal pain/nausea. Denies any chest pain or shortness of breath. 118/71, 66, 18, 36.4, 98% on 2 L via nasal cannula She is alert and oriented. No distress appreciated. HEENT grossly unremarkable Neck is supple Heart is regular Lungs are clear, somewhat decreased in the bases as she does not take a deep breath Abdomen is soft and nontender Assessment and Plan I agree with the impression and plan as noted the resident documentation L1 burst fracture, status post orthopedic spinal surgery today Age related osteoporosis with current pathological fracture, L1 vertebral body History of coronary artery disease sees, sick sinus syndrome status post ICD, and ischemic cardiomyopathy, hemodynamically stable postoperatively Preoperative somnolence secondary to morphine, reversed with Narcan Monitor a.m. labs and hemodynamics Pain control, although we will need to be cautious given her somnolence with morphine prior to surgery Other diagnoses as in the resident documentation Subjective Patient just returned from surgery upon the time my visiting, and as such, is still coming out of anesthesia. She is awake when I walk into the room. She is able to tell me her name and follow commands, but not tell me any other meaningful information when prompted. Review of Systems Review of Systems: Unobtainable due to cognitive status Physical Exam Physical Exam: General: Tired appearing 65-year-old female who is lying back in her hospital bed, relaxed upon my arrival. She is alert and oriented to her name, but but otherwise is unable to provide any other meaningful information. No acute distress. HEENT: NCAT. Eyes - Sclera are white, anicteric, and without injection. Mouth - MMM with no tonsillar edema or exudates. Cardiac: Normal rate and regular rhythm; S1 and S2 present with no murmurs, rubs, or gallops. Pulmonary: Good respiratory effort with symmetric expansion of the chest. No use of accessory muscles. Lungs were clear to auscultation bilaterally with no crackles or wheezes. Abdominal: Normoactive bowel sounds. Abdomen was soft, nondistended, and non- tender to palpation. Extremities: Upper and lower extremities are warm and well perfused. Patient is able to wiggle her toes and dorsiflex/plantarflex against resistance when prompted. Strength 2 out of 5 right now, suspect that this is due to cognitive status. LE pulses 2+. Psych: Well-developed, well-nourished, appropriately dressed for occasion. Behavior is cooperative and appropriate. Affect is WNL. Insight is appropriate. Results & Data Results & Data (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
[2021-03-14] MEDS: LACTATED RINGER'S 1,000 ML IV SCH (12:16)
[2021-03-14] MEDS: CLINDAMYCIN 600 MG in DEXTROSE 5% 50 ML IV SCH (16:07)
[2021-03-14] MEDS ORDERED: Nursing to Pharmacy Communication SCH (16:45)
[2021-03-14] MEDS: HYDROmorphone INJ 0.5 MG/0.5 ML SYR IV PRN (18:21)
[2021-03-14] MEDS: ATORVASTATIN 40 MG TAB PO SCH (20:43)
[2021-03-14] MEDS ORDERED: INSULIN ASPART 100 UNITS/ML 3 ML PEN SC SCH (21:00)
[2021-03-14] MEDS: oxyCODONE HCL IR 5 MG TAB (IMMEDIATE RELEASE) PO PRN (21:59)
[2021-03-15] MEDS: HYDROmorphone INJ 0.5 MG/0.5 ML SYR IV PRN (00:07)
[2021-03-15] MEDS: CLINDAMYCIN 600 MG in DEXTROSE 5% 50 ML IV SCH (00:08)
[2021-03-15] MEDS: LACTATED RINGER'S 1,000 ML IV SCH ×2 (00:14→13:35)
[2021-03-15] MEDS: oxyCODONE HCL IR 5 MG TAB (IMMEDIATE RELEASE) PO PRN (02:03)
[2021-03-15] MEDS: POLYETHYLENE (MIRALAX) 17 GM PACK PO SCH ×4 (07:28→18:37)
[2021-03-15] MEDS: LEVOTHYROXINE SODIUM 50 MCG TABLET PO SCH (07:28)
[2021-03-15] MEDS ORDERED: hydrOXYzine HCl 25 MG TAB PO PRN (08:20)
[2021-03-15] MEDS ORDERED: oxyCODONE HCL IR 5 MG TAB (IMMEDIATE RELEASE) PO PRN (08:20)
[2021-03-15 08:22] LABS: Basophils # (auto) 0.01 K/uL (0-0.2); Basophils % (auto) 0.2 %; Eosinophils # (auto) 0.06 K/uL (0-0.5); Eosinophils % (auto) 0.9 %; Hematocrit (blood only) 29.9 % (37-47); Hemoglobin 9.6 g/dL (12.0-16.0); Immature Granulocytes # (auto) 0.01 K/uL (0.00-0.02); Immature Granulocytes % (auto) 0.2 %; Lymphocytes # (auto) 0.47 K/uL (1.2-3.4); Lymphocytes % (auto) 7.2 %; Mean Corpuscular Hemoglobin 27.4 pg (25-34); Mean Corpuscular Hgb Conc 32.1 g/dL (32-36); Mean Corpuscular Volume 85.4 fL (80-100); Mean Platelet Volume 10.2 fL (7.4-10.4); Monocytes # (auto) 0.47 K/uL (0.11-0.59); Monocytes % (auto) 7.2 %; Neutrophils # (auto) 5.51 K/uL (1.4-6.5); Neutrophils % (auto) 84.3 %; Platelet Count 162 K/uL (130-400); RDW Coefficient of Variation 13.2 % (11.5-14.5); White Blood Count 6.53 K/uL (4.8-10.8)
[2021-03-15 09:04] LABS: BUN Creatinine Ratio 29.8 (10-20); Calcium 8.5 mg/dl (8.5-10.1); Creatinine Clr Calc Pharmacy 58.4 ml/min; Est GFR (African American) 85.8 ml/min; Potassium 3.6 mmol/L (3.5-5.1)
[2021-03-15] MEDS: INSULIN ASPART 100 UNITS/ML 3 ML PEN SC SCH ×4 (09:23→23:55)
[2021-03-15] MEDS ORDERED: HYDROmorphone INJ 0.5 MG/0.5 ML SYR IV PRN (09:58)
--- NOTE | 2021-03-15 10:12 | Hospitalist Progress Note ---
Date of Service March 15, 2021 Assessment & Plan (1) Fracture of L1 vertebra: Plan: 65 yo M PMHx osteoporosis, sick sinus syndrome s/p ICD placement, CAD s/p PCI and ischemic cardiomyopathy, AFib, HTN, DM2, depression, hypothyroidism, GERD admitted for L1 burst fracture with retropulsion and canal stenosis. She is hemodynamically stable and now s/p decompression by Dr. Lindsey on 03/14. L1 Burst Fracture -- with retropulsion and canal stenosis; in setting of known osteoporosis * Mechanical fall at home on 03/12 resulting in "L1 burst fracture with 60% loss of vertebral body height and retropulsion with moderate-grade canal stenosis ... possible small posterior epidural hematoma". * S/p urgent decompression, fusion by Dr. Lindsey (orthopedics) on 03/14. * Continue SCDs. * Monitor daily H&H. * Continue incentive spirometry; patient's * Pain: Tylenol > tramadol > Dilaudid. Patient was rather tired and obtunded following polypharmacy with opiates this morning, will back up on dosing quantity and interval; also cancelled lorazepam as this is not a home medication for patient to prevent further difficulties. * PT / OT when able. Sick Sinus Syndrome s/p ICD Placement, CAD s/p PCI, Ischemic Cardiomyopathy: * Patient does have baseline atypical chest pain / angina relieved with nitroglycerin. * Evaluated by Cardiology pre-operatively given significant cardiac history. -- Continue medications for secondary risk prevention. -- Continue carvedilol during perioperative period. * No cardiac complaints since admission. * Hold Plavix. * Holding lisinopril given episodes of lower BPs, can resume as able. * Continue home Imdur 120mg / day. * Continue medications for secondary risk prevention. DM2: * A1c 6.5% -- at goal. * SSI if needed, hold for now. * Resume metformin upon discharge. Depression: * Continue sertraline. Osteoporosis: * Continue Fosamax, Vitamin D. Hypothyroidism: * Continue levothyroxine. GERD: * Continue PPI. Code Status: FULL CODE Diet: DM2 diet DVT ppx: SCDs Dispo: Med Surg with Telemetry (2) Coronary artery disease: (3) Fatigue: (4) ICD (implantable cardioverter-defibrillator), biventricular, in situ: (5) Unstable angina: (6) Ischemic cardiomyopathy: (7) Hypothyroidism: (8) Osteoporosis: Admission and Anticipated Discharge Date Admission Date: March 12, 2021 Supervising Physician Co-Signing Physician Notes Patient seen and examined with PGY-3 Dr. Bowen. Agree with history, exam findings, assessment and plan of care as outlined. In brief, Ms. Painter is a 65 year old female with hx of osteoporosis, SSS s/p ICD, CAd s/p PCI of LAD and RCA, ischemic cardiomyopathy, pAF, HTN, DM2, hypothyroid and GERD admitted following a mechanical fall found to have an L1 burst fracture. Pain is on and off. Does improve with pain medications. Denies dysuria, but also has a Jiang since admission. Does not recall having any urinary symptoms prior to admission. Vital signs and nursing notes reviewed. Awake and alert, but at times confused. Had some difficulty swallowing pills with the nurse, but no choking. Heart with regular rate and rhythm. Lungs are clear to auscultation. Abdomen is soft, minimally tender in the LLQ. No suprapubic tenderness. Labs and imaging reviewed. 1. L1 burst fracture s/p decompression with Dr. Lindsey on 03/14. Post op pain management with tylenol, oxy, dilaudid. PT/OT. 2. SSS s/p ICD, CAD s/p NATI of LAD and RCA, ischemic cardiomyopathy. At baseline has atypical chest pain that is relieved with nitro. Holding ASA and Plavix in the setting of recent spine surgery. Will restart when ok with surgery. Holding lisinopril as her blood pressures are on the low end. 3. DM2. A1C 6.5%. sliding scale insulin. 4. Osteoporosis. continue home fosamax. Can consider new DEXA as an outpatient. Recheck vitamin D level--if appropriate, can de-escalate her vitamin D supplement. 5. bacteruria. E. Coli. Unclear whether symptomatic so will treat with ceftriaxone. Dispo: pending clinical placement, PT/OT eval. Subjective Patient is without complaints save for back pain. She is tired but can be woken and answer yes or no questions fairly easily. According to nursing she is more awake and alert now than last night or yesterday evening. Review of Systems Review of Systems: All systems reviewed & are unremarkable except as noted in HPI & below Constitutional: no fever, no chills and no malaise Respiratory: no cough and no dyspnea Cardiovascular: no chest pain, no palpitations and no edema Gastrointestinal: + constipation; no abdominal pain and no diarrhea/loose stools Genitourinary: no dysuria and no hematuria Musculoskeletal: back pain, pain with deep inspiration Physical Exam Constitutional: WD/WN, vitals as above Respiratory: normal respiratory effort, lungs clear to auscultation Cardiovascular: RRR, no murmur, no edema Gastrointestinal (Abdomen): mild diffuse tenderness to palpation Musculoskeletal: no cyanosis or clubbing Skin: no rashes, warm and dry Neurologic: AAOx3, normal speech. Bilateral UE, LE, and face without sensory or motor deficits. No tremor. Psychiatric: alert and oriented to name and place only. 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
[2021-03-15] MEDS: ACETAMINOPHEN 1,000 MG/100 ML VIAL IV SCH ×2 (11:05→17:48)
[2021-03-15] MEDS: hydroCHLOROthiazide 25 MG TAB PO SCH (11:06)
[2021-03-15] MEDS: carvediloL 6.25 MG TAB PO SCH ×2 (11:06→17:49)
[2021-03-15] MEDS: SERTRALINE HCL 100 MG TABLET PO SCH (11:07)
[2021-03-15] MEDS: ASPIRIN 81 MG ECTAB PO SCH (11:07)
[2021-03-15] MEDS: ISOSORBIDE MONO EXTENDED REL 60 MG TABCR PO SCH (11:07)
[2021-03-15] MEDS: OXYBUTYNIN CHLORIDE 5 MG TAB PO SCH ×2 (11:08→20:49)
[2021-03-15] MEDS: PANTOprazole 40 MG TAB PO SCH ×2 (11:09→20:49)
[2021-03-15] MEDS: INSULIN GLARGINE SOLOSTAR 100 UNITS/ML 3 ML PEN SC SCH (11:10)
[2021-03-15] MEDS: DOCUSATE SODIUM/SENNA 50/8.6MG TAB PO SCH ×2 (11:31→20:49)
--- NOTE | 2021-03-15 11:35 | Orthopedic Progress Note ---
Date of Service March 15, 2021 Assessment & Plan (1) Fracture of L1 vertebra: Plan: At this time encouraged her to sit up as tolerated. Ideally transition to the chair and begin ambulation when able. Admission and Anticipated Discharge Date Admission Date: March 12, 2021 Subjective Patient complaining of back pain but denies any numbness or tingling into the lower extremities. Physical Exam Physical Exam: On exam she is sitting up in bed. She has good strength testing lower extremities. She does still seem slow to respond to questioning and exam. Results & Data ([facility]) Vital Signs (Past 12 Hours) Vital Signs Temp Pulse Pulse Resp BP BP Pulse Ox 03/15/21 07:54 74 03/15/21 07:39 36.9 C 68 20 121/67 95 03/15/21 06:00 68 03/15/21 02:31 36.6 C 69 18 120/61 97 03/15/21 00:14 62
[2021-03-15] MEDS: cefTRIAXone SODIUM 2,000 MG in DEXTROSE 5% 50 ML IV SCH (13:30)
--- NOTE | 2021-03-15 14:48 | XRay Report ---
XR chest 1V portable CLINICAL HISTORY: Hypoxia COMPARISON STUDY: Chest radiograph March 13, 2021. FINDINGS: A left subclavian pacer/AICD is in place. Cardiomegaly is unchanged. There is no pneumothor ax or pleural effusion. Lung volumes are diminished. Interstitial thickening and bilateral opacities are again noted. Findings have increased when compared to chest radiograph of November 22, 2018 but are si milar to prior study of March 13, 2021. IMPRESSION: Low lung volumes with interstitial thickening and bilateral opacities which are similar to chest radiograph of March 13, 2021 but increased since study of November 30, 2018. The findings cou ld reflect progression of interstitial lung disease or an infectious process or pulmonary edema super imposed upon interstitial lung disease. ACT 112: Negative or not required by law. Electronically signed by: Tejinder Archer M.D. 03/15/2021 2:47 PM
[2021-03-15] MEDS: ATORVASTATIN 40 MG TAB PO SCH (20:49)
[2021-03-16] MEDS: POLYETHYLENE (MIRALAX) 17 GM PACK PO SCH ×5 (00:26→17:11)
[2021-03-16] MEDS: ACETAMINOPHEN 1,000 MG/100 ML VIAL IV SCH ×3 (01:36→17:13)
[2021-03-16] MEDS: LACTATED RINGER'S 1,000 ML IV SCH ×2 (03:57→17:11)
[2021-03-16] MEDS: LEVOTHYROXINE SODIUM 50 MCG TABLET PO SCH (05:53)
[2021-03-16 08:10] LABS: Hematocrit (blood only) 29.1 % (37-47); Hemoglobin 9.7 g/dL (12.0-16.0); Mean Corpuscular Hemoglobin 27.5 pg (25-34); Mean Corpuscular Hgb Conc 33.3 g/dL (32-36); Mean Corpuscular Volume 82.4 fL (80-100); Mean Platelet Volume 9.6 fL (7.4-10.4); Platelet Count 163 K/uL (130-400); RDW Coefficient of Variation 12.9 % (11.5-14.5); RDW Standard Deviation 39.2 fL (36.4-46.3); Red Blood Count 3.53 M/uL (4.2-5.4); White Blood Count 5.82 K/uL (4.8-10.8)
--- NOTE | 2021-03-16 08:27 | Orthopedic Progress Note ---
Date of Service March 16, 2021 Assessment & Plan (1) Fracture of L1 vertebra: Plan: I am hoping that we can begin transfers to the bed today. Attempted ambulation would be good. Obviously we will have her wear the brace when out of bed. I do think she will be a candidate for rehab hopefully in the next few days. I did speak to her on the phone and updated him on her status. Admission and Anticipated Discharge Date Admission Date: March 12, 2021 Subjective Patient complaining of back pain denies any numbness or tingling in the lower extremities. Denies any leg pain. Physical Exam Physical Exam: Patient is alert and oriented she is sitting up in bed. She is good strength testing lower extremities. Results & Data ([facility]) Vital Signs (Past 12 Hours) Vital Signs Temp Pulse Pulse Resp BP BP Pulse Ox 03/16/21 07:00 36.4 C L 70 18 117/64 92 03/16/21 03:00 36.4 C L 74 16 103/56 L 90 03/15/21 23:09 76 03/15/21 22:44 36.7 C 74 18 135/73 98
[2021-03-16] MEDS: traMADol HCL 50 MG TABLET PO PRN ×2 (08:37→16:08)
[2021-03-16] MEDS: carvediloL 6.25 MG TAB PO SCH ×2 (08:38→16:09)
[2021-03-16] MEDS: hydroCHLOROthiazide 25 MG TAB PO SCH (08:38)
[2021-03-16] MEDS: ISOSORBIDE MONO EXTENDED REL 60 MG TABCR PO SCH (08:38)
[2021-03-16] MEDS: SERTRALINE HCL 100 MG TABLET PO SCH (08:38)
[2021-03-16] MEDS: OXYBUTYNIN CHLORIDE 5 MG TAB PO SCH ×2 (08:38→20:42)
[2021-03-16] MEDS: ASPIRIN 81 MG ECTAB PO SCH (08:39)
[2021-03-16] MEDS: PANTOprazole 40 MG TAB PO SCH ×2 (08:39→20:42)
[2021-03-16] MEDS: INSULIN GLARGINE SOLOSTAR 100 UNITS/ML 3 ML PEN SC SCH (08:39)
[2021-03-16] MEDS: INSULIN ASPART 100 UNITS/ML 3 ML PEN SC SCH ×4 (08:42→22:36)
[2021-03-16] MEDS: DOCUSATE SODIUM/SENNA 50/8.6MG TAB PO SCH ×2 (08:44→20:42)
[2021-03-16 08:46] LABS: BUN Creatinine Ratio 19.8 (10-20); Calcium 8.7 mg/dl (8.5-10.1); Creatinine Clr Calc Pharmacy 59.1 ml/min; Est GFR (African American) 87.1 ml/min; Est GFR (Non-African American) 75.2 ml/min; Potassium 3.6 mmol/L (3.5-5.1)
[2021-03-16] MEDS: ONDANSETRON INJ 2 MG/ML 2 ML VIAL IV PRN (10:53)
[2021-03-16] MEDS: cefTRIAXone SODIUM 2,000 MG in DEXTROSE 5% 50 ML IV SCH (10:54)
--- NOTE | 2021-03-16 11:27 | Hospitalist Progress Note ---
Date of Service March 16, 2021 Assessment & Plan (1) Fracture of L1 vertebra: Plan: 65 yo M PMHx osteoporosis, sick sinus syndrome s/p ICD placement, CAD s/p PCI and ischemic cardiomyopathy, AFib, HTN, DM2, depression, hypothyroidism, GERD admitted for L1 burst fracture with retropulsion and canal stenosis. She is hemodynamically stable and now s/p decompression by Dr. Lindsey on 03/14. L1 Burst Fracture -- with retropulsion and canal stenosis; in setting of known osteoporosis * Mechanical fall at home on 03/12 resulting in "L1 burst fracture with 60% loss of vertebral body height and retropulsion with moderate-grade canal stenosis ... possible small posterior epidural hematoma". * S/p urgent decompression, fusion by Dr. Lindsey (orthopedics) on 03/14. * Continue SCDs. * Monitor daily H&H. * Continue incentive spirometry * Pain: Tylenol > tramadol > Dilaudid. Patient was rather tired and obtunded following polypharmacy with opiates 03/15--has not been an issue since. * PT / OT as able--will need inpt rehab vs SNF per PT/OT notes Sick Sinus Syndrome s/p ICD Placement, CAD s/p PCI, Ischemic Cardiomyopathy: * Patient does have baseline atypical chest pain / angina relieved with nitroglycerin. * Evaluated by Cardiology pre-operatively given significant cardiac history. -- Continue medications for secondary risk prevention. -- Continue carvedilol during perioperative period. * No cardiac complaints since admission. * Hold Plavix. * Holding lisinopril given episodes of lower BPs, can resume as able. * Continue home Imdur 120mg / day. * Continue medications for secondary risk prevention. DM2: * A1c 6.5% -- at goal. * SSI if needed, hold for now. * Resume metformin upon discharge. Depression: * Continue sertraline. Osteoporosis: * Continue Fosamax, Vitamin D. Hypothyroidism: * Continue levothyroxine. GERD: * Continue PPI. Code Status: FULL CODE Diet: DM2 diet DVT ppx: SCDs Dispo: Med Surg with Telemetry (2) Coronary artery disease: (3) Fatigue: (4) ICD (implantable cardioverter-defibrillator), biventricular, in situ: (5) Unstable angina: (6) Ischemic cardiomyopathy: (7) Hypothyroidism: (8) Osteoporosis: Admission and Anticipated Discharge Date Admission Date: March 12, 2021 Supervising Physician Co-Signing Physician Notes Patient seen and examined with PGY-2 Dr. Castillo. Agree with history, exam findings, assessment and plan of care as outlined. In brief, Ms. Painter is a 65 year old female with hx of osteoporosis, SSS s/p ICD, CAD s/p PCI of LAD and RCA, ischemic cardiomyopathy, pAF, HTN, DM2, hypothyroid and GERD admitted following a mechanical fall found to have an L1 burst fracture. Feels ok. Did sit in the bedside chair this morning. Feels that pain is well controlled on current medication regimen. Vital signs and nursing notes reviewed. Awake and alert, but at times confused. Heart with regular rate and rhythm. Lungs are clear to auscultation. Labs and imaging reviewed. 1. L1 burst fracture s/p decompression with Dr. Lindsey on 03/14. Post op pain management with tylenol, oxy, dilaudid. PT/OT. 2. SSS s/p ICD, CAD s/p NATI of LAD and RCA, ischemic cardiomyopathy. At baseline has atypical chest pain that is relieved with nitro. Holding ASA and Plavix in the setting of recent spine surgery. Will restart when ok with surgery. Holding Lisinopril as her blood pressures are on the low end. 3. DM2. A1C 6.5%. Sliding scale insulin. 4. Osteoporosis. Continue home Fosamax. Can consider new DEXA as an outpatient. Vitamin D level pending--if appropriate, can de-escalate her vitamin D supplement. 5. Bacteruria. E. Coli. Unclear whether symptomatic so will treat with ceftriaxone. Dispo: pending placementPT/OT rec inpatient rehab vs SNF. Subjective Patient seen sitting at bedside chair this morning. Reported fairly well- controlled pain. Discussed plan for rehabilitation after she is discharged. Review of Systems Review of Systems: All systems reviewed & are unremarkable except as noted in Subjective Physical Exam Physical Exam: GENERAL: A&Ox3. NAD. CHEST/LUNGS: CTAB A/P. No crackles, wheezes, rales, rhonchi. HEART: RRR. No m/g/r. EXTREMITIES: No cyanosis, no clubbing, no edema SKIN: Warm and dry. No rashes or lesions. PSYCHIATRIC: Euthymic affect, no SI, no pressured speech, no hallucinations. 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
[2021-03-16] MEDS: ATORVASTATIN 40 MG TAB PO SCH (20:42)
[2021-03-17] MEDS: POLYETHYLENE (MIRALAX) 17 GM PACK PO SCH ×6 (00:27→22:25)
[2021-03-17] MEDS: traMADol HCL 50 MG TABLET PO PRN ×4 (00:27→22:24)
[2021-03-17] MEDS: ACETAMINOPHEN 1,000 MG/100 ML VIAL IV SCH ×2 (02:17→10:21)
[2021-03-17] MEDS: LEVOTHYROXINE SODIUM 50 MCG TABLET PO SCH (06:30)
[2021-03-17] MEDS: ASPIRIN 81 MG ECTAB PO SCH (08:17)
[2021-03-17] MEDS: OXYBUTYNIN CHLORIDE 5 MG TAB PO SCH ×2 (08:17→20:04)
[2021-03-17] MEDS: ISOSORBIDE MONO EXTENDED REL 60 MG TABCR PO SCH (08:17)
[2021-03-17] MEDS: hydroCHLOROthiazide 25 MG TAB PO SCH (08:17)
[2021-03-17] MEDS: PANTOprazole 40 MG TAB PO SCH ×2 (08:17→20:03)
[2021-03-17] MEDS: SERTRALINE HCL 100 MG TABLET PO SCH (08:17)
[2021-03-17] MEDS: carvediloL 6.25 MG TAB PO SCH ×2 (08:17→17:24)
[2021-03-17] MEDS: DOCUSATE SODIUM/SENNA 50/8.6MG TAB PO SCH ×2 (08:18→20:05)
[2021-03-17] MEDS: INSULIN ASPART 100 UNITS/ML 3 ML PEN SC SCH ×4 (08:18→21:05)
[2021-03-17] MEDS: INSULIN GLARGINE SOLOSTAR 100 UNITS/ML 3 ML PEN SC SCH (08:19)
--- NOTE | 2021-03-17 08:35 | Hospitalist Progress Note ---
Date of Service March 17, 2021 Assessment & Plan (1) Fracture of L1 vertebra: Plan: 65 yo M PMHx osteoporosis, sick sinus syndrome s/p ICD placement, CAD s/p PCI and ischemic cardiomyopathy, AFib, HTN, DM2, depression, hypothyroidism, GERD admitted for L1 burst fracture with retropulsion and canal stenosis. She is hemodynamically stable and now s/p decompression by Dr. Lindsey on 03/14. L1 Burst Fracture -- with retropulsion and canal stenosis; in setting of known osteoporosis * Mechanical fall at home on 03/12 resulting in "L1 burst fracture with 60% loss of vertebral body height and retropulsion with moderate-grade canal stenosis ... possible small posterior epidural hematoma". * S/p urgent decompression, fusion by Dr. Lindsey (orthopedics) on 03/14. * Continue SCDs. * Monitor daily H&H. * Continue incentive spirometry * Pain: Tylenol > tramadol > Dilaudid. Patient was rather tired and obtunded following polypharmacy with opiates 03/15--has not been an issue since. * PT / OT as able--will need inpt rehab vs SNF per PT/OT notes * [facility] Sick Sinus Syndrome s/p ICD Placement, CAD s/p PCI, Ischemic Cardiomyopathy: * Patient does have baseline atypical chest pain / angina relieved with nitroglycerin. * Evaluated by Cardiology pre-operatively given significant cardiac history. -- Continue medications for secondary risk prevention. -- Continue carvedilol during perioperative period. * No cardiac complaints since admission. * Hold Plavix. * Holding lisinopril given episodes of lower BPs, can resume as able. * Continue home Imdur 120mg / day. * Continue medications for secondary risk prevention. UTI * Had bacteriuria with UCx positive for pansensitive E. coli * Patient today reporting that she did have urinary symptoms prior to admission * Has oxybutynin 5mg BID -- continue this * CTX 2g daily -- today is day 3, will stop at this point DM2: * A1c 6.5% -- at goal. * SSI if needed, hold for now. * Resume metformin upon discharge. Depression: * Continue sertraline. Osteoporosis: * Continue Fosamax, Vitamin D. Hypothyroidism: * Continue levothyroxine. GERD: * Continue PPI. Code Status: FULL CODE Diet: DM2 diet DVT ppx: SCDs Dispo: Med Surg with Telemetry -- likely to [facility] tomorrow (2) Coronary artery disease: (3) Fatigue: (4) ICD (implantable cardioverter-defibrillator), biventricular, in situ: (5) Unstable angina: (6) Ischemic cardiomyopathy: (7) Hypothyroidism: (8) Osteoporosis: Admission and Anticipated Discharge Date Admission Date: March 12, 2021 Supervising Physician Co-Signing Physician Notes Patient seen and examined with PGY-2 Dr. Castillo. Agree with history, exam findings, assessment and plan of care as outlined. In brief, Ms. Painter is a 65 year old female with hx of osteoporosis, SSS s/p ICD, CAD s/p PCI of LAD and RCA, ischemic cardiomyopathy, pAF, HTN, DM2, hypot hyroid and GERD admitted following a mechanical fall found to have an L1 burst fracture. Feels ok. Did sit in the bedside chair this morning. Feels that pain is well controlled on current medication regimen. Vital signs and nursing notes reviewed. Awake and alert, but at times confused. Heart with regular rate and rhythm. Lungs are clear to auscultation. Labs and imaging reviewed. 1. L1 burst fracture s/p decompression with Dr. Lindsey on 03/14. Post op pain management with tylenol, tramadol. Stopped dilaudid since she has not been needing this. PT/OT. 2. SSS s/p ICD, CAD s/p NATI of LAD and RCA, ischemic cardiomyopathy. At baseline has atypical chest pain that is relieved with nitro. Holding ASA and Plavix in the setting of recent spine surgery. Will restart when ok with surgery. Holding Lisinopril as her blood pressures are on the low end. 3. DM2. A1C 6.5%. Sliding scale insulin. 4. Osteoporosis. Continue home Fosamax. Can consider new DEXA as an outpatient. Vitamin D level pending--if appropriate, can de-escalate her vitamin D supplement. 5. Bacteruria. E. Coli. Completed 3 days of ceftriaxone. Dispo: [facility] on Thursday. Subjective Patient seen at bedside this morning. Reporting well-controlled back pain. During conversation today did report urinary symptoms including foul odor and mild discomfort in the days preceding her hospitalization. She does mention that she takes oxybutynin for urinary symptoms. Right now not reporting urinary discomfort. Denies fever, chills, nausea, vomiting, abdominal pain, shortness of breath, or any other concerning symptoms. Review of Systems Review of Systems: All systems reviewed & are unremarkable except as noted in Subjective Physical Exam Physical Exam: GENERAL: A&Ox3. NAD. CHEST/LUNGS: CTAB A/P. No crackles, wheezes, rales, rhonchi. HEART: RRR. No m/g/r. EXTREMITIES: No cyanosis, no clubbing, no edema SKIN: Warm and dry. No rashes or lesions. PSYCHIATRIC: Euthymic affect, no SI, no pressured speech, no hallucinations. Results & Data Results & Data (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
[2021-03-17 08:50] LABS: Basophils # (auto) 0.02 K/uL (0-0.2); Basophils % (auto) 0.4 %; Eosinophils # (auto) 0.18 K/uL (0-0.5); Eosinophils % (auto) 3.2 %; Hematocrit (blood only) 29.9 % (37-47); Hemoglobin 9.8 g/dL (12.0-16.0); Immature Granulocytes # (auto) 0.01 K/uL (0.00-0.02); Immature Granulocytes % (auto) 0.2 %; Lymphocytes # (auto) 0.53 K/uL (1.2-3.4); Lymphocytes % (auto) 9.5 %; Mean Corpuscular Hgb Conc 32.8 g/dL (32-36); Mean Corpuscular Volume 82.4 fL (80-100); Mean Platelet Volume 9.4 fL (7.4-10.4); Monocytes # (auto) 0.31 K/uL (0.11-0.59); Monocytes % (auto) 5.6 %; Neutrophils # (auto) 4.53 K/uL (1.4-6.5); Neutrophils % (auto) 81.1 %; Platelet Count 176 K/uL (130-400); RDW Coefficient of Variation 12.8 % (11.5-14.5); RDW Standard Deviation 38.6 fL (36.4-46.3); Red Blood Count 3.63 M/uL (4.2-5.4); White Blood Count 5.58 K/uL (4.8-10.8)
[2021-03-17 09:17] LABS: BUN Creatinine Ratio 16.5 (10-20); Calcium 8.7 mg/dl (8.5-10.1); Creatinine Clr Calc Pharmacy 60.6 ml/min; Est GFR (African American) 89.8 ml/min; Est GFR (Non-African American) 77.5 ml/min; Potassium 3.3 mmol/L (3.5-5.1)
[2021-03-17] MEDS: cefTRIAXone SODIUM 2,000 MG in DEXTROSE 5% 50 ML IV SCH (10:41)
[2021-03-17] MEDS: ACETAMINOPHEN 500 MG TAB PO SCH (20:03)
[2021-03-17] MEDS: ATORVASTATIN 40 MG TAB PO SCH (20:04)
[2021-03-18] MEDS: POLYETHYLENE (MIRALAX) 17 GM PACK PO SCH ×5 (05:19→22:11)
[2021-03-18 06:01] LABS: Eosinophils # (auto) 0.15 K/uL (0-0.5); Eosinophils % (auto) 3.1 %; Hemoglobin 9.4 g/dL (12.0-16.0); Immature Granulocytes # (auto) 0.02 K/uL (0.00-0.02); Immature Granulocytes % (auto) 0.4 %; Lymphocytes # (auto) 0.44 K/uL (1.2-3.4); Lymphocytes % (auto) 9.1 %; Mean Corpuscular Hemoglobin 26.9 pg (25-34); Mean Corpuscular Hgb Conc 32.4 g/dL (32-36); Mean Corpuscular Volume 82.9 fL (80-100); Mean Platelet Volume 9.8 fL (7.4-10.4); Monocytes # (auto) 0.19 K/uL (0.11-0.59); Monocytes % (auto) 3.9 %; Neutrophils # (auto) 4.03 K/uL (1.4-6.5); Neutrophils % (auto) 83.5 %; Platelet Count 185 K/uL (130-400); RDW Coefficient of Variation 12.7 % (11.5-14.5); RDW Standard Deviation 38.3 fL (36.4-46.3); White Blood Count 4.83 K/uL (4.8-10.8)
--- NOTE | 2021-03-18 06:06 | Hospitalist Progress Note ---
Date of Service March 18, 2021 Assessment & Plan (1) Fracture of L1 vertebra: Plan: 65 yo M PMHx osteoporosis, sick sinus syndrome s/p ICD placement, CAD s/p PCI and ischemic cardiomyopathy, AFib, HTN, DM2, depression, hypothyroidism, GERD admitted for L1 burst fracture with retropulsion and canal stenosis. She is hemodynamically stable and now s/p decompression by Dr. Lindsey on 03/14. L1 Burst Fracture -- with retropulsion and canal stenosis; in setting of known osteoporosis * Mechanical fall at home on 03/12 resulting in "L1 burst fracture with 60% loss of vertebral body height and retropulsion with moderate-grade canal stenosis ... possible small posterior epidural hematoma". * S/p urgent decompression, fusion by Dr. Lindsey (orthopedics) on 03/14. * Continue SCDs. * Monitor daily H&H. * Continue incentive spirometry * Pain: Tylenol > tramadol > Dilaudid. -- Patient was rather tired and obtunded following polypharmacy 03/15--has not been an issue since. * Continue PT / OT -- will need inpt rehab vs SNF per PT/OT notes * Awaiting placement - [facility] Sick Sinus Syndrome s/p ICD Placement, CAD s/p PCI, Ischemic Cardiomyopathy: * Patient does have baseline atypical chest pain / angina relieved with nitroglycerin. * Evaluated by Cardiology pre-operatively given significant cardiac history. -- Continue medications for secondary risk prevention. -- Continue carvedilol during perioperative period. * No cardiac complaints since admission. * Hold Plavix. * Continue home Imdur 120mg / day. * Continue medications for secondary risk prevention. Complicated UTI -- now characterizing as incontininence and urgency * Had bacteriuria with UCx positive for pansensitive E. coli * Patient today reporting that she did have urinary symptoms prior to admission * Continue home oxybutynin * s/p 3 days of CFTX * Given return of urinary symptoms today, will initiate Keflex 750mg PO b.i.d. x 7 days DM2: * A1c 6.5% -- at goal. * SSI if needed, hold for now. * Resume metformin upon discharge. Depression: * Continue sertraline. Osteoporosis: * Continue Fosamax, Vitamin D. Hypothyroidism: * Continue levothyroxine. GERD: * Continue PPI. Code Status: FULL CODE Diet: DM2 diet DVT ppx: SCDs Dispo: Med Surg with Telemetry -- awaiting auth, likely going to [facility] (2) Coronary artery disease: (3) Fatigue: (4) ICD (implantable cardioverter-defibrillator), biventricular, in situ: (5) Unstable angina: (6) Ischemic cardiomyopathy: (7) Hypothyroidism: (8) Osteoporosis: Admission and Anticipated Discharge Date Admission Date: March 12, 2021 Supervising Physician Co-Signing Physician Notes I personally examined the patient and verified all vega points of history and exam, discussed case, and agree with decision making with Dr Mays. Pain under reasonable control. Would feel up to going to rehab if approved. No other new complaintsback pain present, pain meds do help. Vitals noted, in general she is awake and alert pleasant no distress. HEENT normocephalic atraumatic mucous membranes moist. Breathing unlabored no accessory muscle use good effort. Skin shows no rashes no pallor or icterus. Neuro without focal deficits. L1 burst fracturepresumed osteoporosisnow status post OR. PT/OT eval and treat. Stable for SNF/rehab once approved/available. Continue pain control. Outpatient bone health eval and treat Otherwise as above Subjective NAEO. Saying pain is not great this morning - in her back. Didn't get much sleep. Is reporting urinary incontinence - "feels like I can't control it at all." Appetite ok. No nausea. No shortness of breath Review of Systems Review of Systems: as per hPI Physical Exam Physical Exam: General: 65yoF lying back in her hospital bed, frail-appearing, who awakens easily and is fully A&O throughout our discussion. Mild distress sec to pain. HEENT: NCAT. Eyes - Sclera are white, anicteric, and without injection. Mouth - MMM with no tonsillar edema or exudates. Cardiac: Normal rate and regular rhythm; S1 and S2 present with no murmurs, rubs, or gallops. Pulmonary: Good respiratory effort with symmetric expansion of the chest. No use of accessory muscles. Lungs were clear to auscultation bilaterally with no crackles or wheezes. Abdominal: Abdomen was soft, nondistended, and non-tender to palpation. Extremities: LE strength 4/5 bilaterally at knees and ankles. Distal sensation to light touch equal and present bilaterally. 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
[2021-03-18] MEDS: ACETAMINOPHEN 500 MG TAB PO SCH ×3 (06:14→20:25)
[2021-03-18] MEDS: LEVOTHYROXINE SODIUM 50 MCG TABLET PO SCH (06:14)
[2021-03-18 06:26] LABS: BUN Creatinine Ratio 14.3 (10-20); Calcium 8.6 mg/dl (8.5-10.1); Creatinine Clr Calc Pharmacy 71.2 ml/min; Est GFR (African American) 104.9 ml/min; Est GFR (Non-African American) 90.5 ml/min
[2021-03-18] MEDS: traMADol HCL 50 MG TABLET PO PRN ×3 (08:42→17:26)
[2021-03-18] MEDS: ISOSORBIDE MONO EXTENDED REL 60 MG TABCR PO SCH (08:43)
[2021-03-18] MEDS: hydroCHLOROthiazide 25 MG TAB PO SCH (08:43)
[2021-03-18] MEDS: carvediloL 6.25 MG TAB PO SCH ×2 (08:43→17:42)
[2021-03-18] MEDS: ASPIRIN 81 MG ECTAB PO SCH (08:43)
[2021-03-18] MEDS: OXYBUTYNIN CHLORIDE 5 MG TAB PO SCH ×2 (08:43→20:25)
[2021-03-18] MEDS: SERTRALINE HCL 100 MG TABLET PO SCH (08:43)
[2021-03-18] MEDS: PANTOprazole 40 MG TAB PO SCH ×2 (08:43→20:25)
[2021-03-18] MEDS: DOCUSATE SODIUM/SENNA 50/8.6MG TAB PO SCH ×2 (08:44→20:13)
[2021-03-18] MEDS ORDERED: ERGOCALCIFEROL 50,000 UNITS 1250 MCG CAP PO SCH (09:00)
[2021-03-18] MEDS ORDERED: POTASSIUM CHLORIDE CRTAB 20 MEQ TABCR PO STA (09:26)
[2021-03-18] MEDS: INSULIN GLARGINE SOLOSTAR 100 UNITS/ML 3 ML PEN SC SCH (10:04)
[2021-03-18] MEDS: INSULIN ASPART 100 UNITS/ML 3 ML PEN SC SCH ×4 (10:05→20:13)
[2021-03-18] MEDS ORDERED: cephALEXin 250 MG CAP PO STA (10:07)
--- NOTE | 2021-03-18 10:13 | Orthopedic Progress Note ---
Date of Service March 18, 2021 Assessment & Plan (1) Fracture of L1 vertebra: Plan: Patient appears to be improving. Pain is more controlled. We will obtain x- rays today. She is a candidate for rehab when cleared by medicine. Admission and Anticipated Discharge Date Admission Date: March 12, 2021 Subjective Patient in the chair at the bedside. She appears comfortable. Physical Exam Physical Exam: Patient has good strength testing appears comfortable. Results & Data ([facility]) Vital Signs (Past 12 Hours) Vital Signs Temp Pulse Pulse Pulse Resp BP BP 03/18/21 09:42 66 03/18/21 09:30 66 03/18/21 07:22 36.7 C 67 16 167/77 H 03/18/21 02:48 36.8 C 65 17 157/69 H 03/17/21 23:24 67 03/17/21 23:18 36.6 C 69 16 143/68 H Pulse Ox 03/18/21 09:42 03/18/21 09:30 03/18/21 07:22 94 03/18/21 02:48 93 03/17/21 23:24 03/17/21 23:18 91
--- NOTE | 2021-03-18 12:04 | XRay Report ---
XR lumbar spine 2-3V HISTORY: 65 years-old Female postop status post fusion of the lumbar spine. COMPARISON: CT lumbar spine 03/12/2021 TECHNIQUE: 3 views of the lumbar spine FINDINGS: Status post kyphoplasty at T12-L2 with posterior interbody liz and screw fusion hardware extending fr om the T12-L2 levels. The hardware appears intact. L3 and L4 compression deformities are redemonstrat ed and appear unchanged. Multilevel intervertebral disc space narrowing, severe at L5-S1 with mild to moderate spondylitic spurring and moderate facet arthrosis. Osteoarthritis of the hips. Surgical clips project over the abdominal right upper quadrant. Air-filled gaseous distended loops of large and small bowel with air-fluid levels. Atherosclerosis of the aorta. Indeterminate linear cath eter device measuring approximately 5 cm is noted on the lateral view anterior to the L2 pedicle scre ws, not seen on the frontal projection and possibly external to the patient. IMPRESSION: 1. Status post kyphoplasty with posterior interbody liz and screw fusion at T12-L2. 2. L3 and L4 compression deformities appear unchanged. 3. Gaseous distended loops of large and small bowel are suggestive of postoperative ileus. 4. Indeterminate linear radiodense structure overlying the spine on the lateral view is not identifie d on the frontal projection and may be external to the patient. ACT 112: Negative or not required by law. The above report was generated using voice recognition software. It may contain grammatical, syntax o r spelling errors. Electronically signed by: Aristeo Glover M.D. 03/18/2021 12:03 PM
--- NOTE | 2021-03-18 18:08 | Billing Data ---
Date of Service March 18, 2021 Coding Level of Care Code 24032 Subseq Hosp Care Lvl 2
[2021-03-18 19:28] LABS: Appearance Urine Clear (Clear); Bilirubin Urine Negative (Negative); Blood Urine Negative (Negative); Color Urine Yellow; Glucose Urine UA Negative (Negative); Ketones Urine Negative (Negative); Leukocyte Esterase Urine Negative (Negative); Nitrite Urine Negative (Negative); Protein Urine Negative (Negative); Specific Gravity Urine 1.008 (1.000-1.030); Urobilinogen Urine Negative (Negative)
[2021-03-18] MEDS: ATORVASTATIN 40 MG TAB PO SCH (20:25)
[2021-03-18] MEDS: cephALEXin 250 MG CAP PO SCH (20:26)
[2021-03-19] MEDS: traMADol HCL 50 MG TABLET PO PRN ×3 (02:38→13:37)
[2021-03-19] MEDS: POLYETHYLENE (MIRALAX) 17 GM PACK PO SCH ×5 (05:37→23:06)
[2021-03-19] MEDS: ACETAMINOPHEN 500 MG TAB PO SCH ×3 (05:45→20:28)
[2021-03-19] MEDS: LEVOTHYROXINE SODIUM 50 MCG TABLET PO SCH (05:45)
--- NOTE | 2021-03-19 06:01 | Discharge Summary ---
Date of Service March 20, 2021 Admission HPI Per Admitting Provider This is a pleasnt 65 yo female a history of sick sinus syndrome S/P biventricular ICD, paroxysmal atrial fibrillation, coronary artery disease s/p PCI of LAD and RCA, resolved cardiomyopathy, hypertension, type 2 diabetes, and hypothyroidism. Patient suffered a mechanical wall while slipping on her dogs urine at home. She fell on her back and had signifcant pain. This prompted her to come to the ER. Patient reports pain is severe and requires morphine. Pt denies LOC, headache, fevers, chills, diaphoresis, visual changes, neck pain, chest pain, breathing difficulties, nausea, vomiting, abdominal pain, bowel or bladder complaints, melena, hematochezia, urinary symptoms, numbness, weakness, lymphadenopathy, rash, or other complaints. Admission Exam Per Admitting Provider This is a pleasnt 65 yo female a history of sick sinus syndrome S/P biventricular ICD, paroxysmal atrial fibrillation, coronary artery disease s/p PCI of LAD and RCA, resolved cardiomyopathy, hypertension, type 2 diabetes, and hypothyroidism. Patient suffered a mechanical wall while slipping on her dogs urine at home. She fell on her back and had signifcant pain. This prompted her to come to the ER. Patient reports pain is severe and requires morphine. Pt denies LOC, headache, fevers, chills, diaphoresis, visual changes, neck pain, chest pain, breathing difficulties, nausea, vomiting, abdominal pain, bowel or bladder complaints, melena, hematochezia, urinary symptoms, numbness, weakness, lymphadenopathy, rash, or other complaints. Principal Diagnosis L1 Burst Fracture Complicated UTI Discharge Exam General: 65yoF lying back in her hospital bed, frail-appearing, who awakens easily and is fully A&O throughout our discussion. Mild distress sec to pain. HEENT: NCAT. Eyes - Sclera are white, anicteric, and without injection. Mouth - MMM with no tonsillar edema or exudates. Cardiac: Normal rate and regular rhythm; S1 and S2 present with no murmurs, rubs, or gallops. Pulmonary: Good respiratory effort with symmetric expansion of the chest. No use of accessory muscles. Lungs were clear to auscultation bilaterally with no crackles or wheezes. Abdominal: Abdomen was soft, nondistended, and non-tender to palpation. Extremities: LE strength 4/5 bilaterally at knees and ankles. Distal sensation to light touch equal and present bilaterally. Discharge Data Allergies Allergy/AdvReac Type Severity Reaction Status Date / Time latex Allergy Intermediate HIVES Verified 03/12/21 20:21 adhesive Allergy Mild SKIN Verified 03/12/21 20:21 IRRITATION penicillin V Allergy Unknown Unknown Verified 03/12/21 20:21 aspirin AdvReac Mild STOMACH Verified 03/12/21 20:21 UPSET Consultations 03/12/21 19:39 ED Decision to Admit Stat 03/12/21 19:41 Consult Orthopedic Surgery Routine 03/13/21 11:14 Consult Cardiology Routine Procedures Performed Operation Date: 03/14/21 07:45 Actual Procedures p T12-L2 Lumbar Decompression Fusion; (Not Applicable) - Kain Lindsey DO s L1 kyphoplasty(Not Applicable) - Kain Lindsey DO Ordered Studies XR lumbar spine 2-3V (03/18) HISTORY: 65 years-old Female postop status post fusion of the lumbar spine. COMPARISON: CT lumbar spine 03/12/2021 TECHNIQUE: 3 views of the lumbar spine FINDINGS: Status post kyphoplasty at T12-L2 with posterior interbody liz and screw fusion hardware extending from the T12-L2 levels. The hardware appears intact. L3 and L4 compression deformities are redemonstrated and appear unchanged. Multilevel intervertebral disc space narrowing, severe at L5-S1 with mild to moderate spondylitic spurring and moderate facet arthrosis. Osteoarthritis of the hips. Surgical clips project over the abdominal right upper quadrant. Air-filled gaseous distended loops of large and small bowel with air-fluid levels. Atherosclerosis of the aorta. Indeterminate linear catheter device measuring approximately 5 cm is noted on the lateral view anterior to the L2 pedicle screws, not seen on the frontal projection and possibly external to the patient. IMPRESSION: 1. Status post kyphoplasty with posterior interbody liz and screw fusion at T12- L2. 2. L3 and L4 compression deformities appear unchanged. 3. Gaseous distended loops of large and small bowel are suggestive of postoperative ileus. 4. Indeterminate linear radiodense structure overlying the spine on the lateral view is not identified on the frontal projection and may be external to the patient. Hospital Course (1) Fracture of L1 vertebra: 65 yo M PMHx osteoporosis, sick sinus syndrome s/p ICD placement, CAD s/p PCI and ischemic cardiomyopathy, AFib, HTN, DM2, depression, hypothyroidism, GERD admitted for L1 burst fracture with retropulsion and canal stenosis. She is hemodynamically stable and now s/p decompression by Dr. Lindsey on 03/14. L1 Burst Fracture -- with retropulsion and canal stenosis; in setting of known osteoporosis * Mechanical fall at home on 03/12 resulting in "L1 burst fracture with 60% loss of vertebral body height and retropulsion with moderate-grade canal stenosis ... possible small posterior epidural hematoma". * S/p urgent decompression, fusion by Dr. Lindsey (orthopedics) on 03/14. * H&H stable throughout course * Pain: Improved on acetaminophen > oxycodone, tramadol -- Patient was rather tired and obtunded following polypharmacy 03/15 * Continue intensive PT, OT upon discharge Sick Sinus Syndrome s/p ICD Placement, CAD s/p PCI, Ischemic Cardiomyopathy: * Patient does have baseline atypical chest pain / angina relieved with nitroglycerin. * Evaluated by Cardiology pre-operatively given significant cardiac history. -- Continued medications for secondary risk prevention. -- Continued carvedilol during perioperative period. * No cardiac complaints since admission. * Resume Plavix on d/c (held while here) * Continue medications for secondary risk prevention. Complicated UTI -- symptoms improving, now characterizing as incontinence and urgency * Had bacteriuria with UCx positive for pansensitive E. coli * Patient today reporting that she did have urinary symptoms prior to admission * Continue home oxybutynin * s/p 3 days of CFTX * Keflex 750mg b.i.d. x 7 days (begin 03/18) DM2: * A1c 6.5% -- at goal. * Resume metformin upon discharge Depression: * Continue sertraline. Osteoporosis: * Continue Fosamax, Vitamin D. Hypothyroidism: * Continue levothyroxine. GERD: * Continue PPI. (2) Coronary artery disease: (3) Fatigue: (4) ICD (implantable cardioverter-defibrillator), biventricular, in situ: (5) Unstable angina: (6) Ischemic cardiomyopathy: (7) Hypothyroidism: (8) Osteoporosis: Total Time Total Time Spent Total Time Spent (In Minutes): <30 Discharge Plan Discharge Items Patient Disposition: Transfer Inpatient Rehab Fac Reason For Visit: L1 COMPRESSION FRACTURE Discharge Diagnosis: L1 burst fracture Activity: Per Instructions section Non-emergency contact: Primary Care Provider Call non-emergency contact if: you have any medication questions Follow-up/Referrals: Codi Lee CRNP [Primary Care Provider] - Diet: Regular Addtl Attending Provider Instructions: 65 yo M PMHx osteoporosis, sick sinus syndrome s/p ICD placement, CAD s/p PCI and ischemic cardiomyopathy, AFib, HTN, DM2, depression, hypothyroidism, GERD admitted for L1 burst fracture with retropulsion and canal stenosis. She is hemodynamically stable and now s/p decompression by Dr. Lindsey on 03/14. L1 Burst Fracture -- with retropulsion and canal stenosis; in setting of known osteoporosis * Mechanical fall at home on 03/12 resulting in "L1 burst fracture with 60% loss of vertebral body height and retropulsion with moderate-grade canal stenosis ... possible small posterior epidural hematoma". * S/p urgent decompression, fusion by Dr. Lindsey (orthopedics) on 03/14. * H&H stable throughout course * Continue incentive spirometry * Pain: Adequately controlled on acetaminophen > tramadol > breakthrough: hydromorphone -- Patient was rather tired and obtunded following polypharmacy 03/15 * Continue intensive PT, OT upon discharge Sick Sinus Syndrome s/p ICD Placement, CAD s/p PCI, Ischemic Cardiomyopathy: * Patient does have baseline atypical chest pain / angina relieved with nitroglycerin. * Evaluated by Cardiology pre-operatively given significant cardiac history. -- Continued medications for secondary risk prevention. -- Continued carvedilol during perioperative period. * No cardiac complaints since admission. * Resume Plavix on d/c (held while here) * Continue medications for secondary risk prevention. Complicated UTI -- now characterizing as incontinence and urgency * Had bacteriuria with UCx positive for pansensitive E. coli * Patient today reporting that she did have urinary symptoms prior to admission * Continue home oxybutynin * s/p 3 days of CFTX * Keflex 750mg b.i.d. x 7 days (begin 03/18) DM2: * A1c 6.5% -- at goal. * Resume metformin upon discharge Depression: * Continue sertraline. Osteoporosis: * Continue Fosamax, Vitamin D. Hypothyroidism: * Continue levothyroxine. GERD: * Continue PPI. Code Status: FULL CODE ----- ACTIVITY RECOMMENDATIONS: SELF CARE INSTRUCTIONS AFTER THORACIC/LUMBAR FUSIONS 1. You may walk to your tolerance. It is good exercise for your legs and back. Expect some back and intermittent leg aches and pains. 2. You may perform "counter-top" level activities (make a sandwich, edwina with a project, etc.). 3. No bending or lifting of more than 10 pounds or back twisting of any nature (roll like a log when turning in bed). 4. You may ride in a car for 20-30 minutes at a time. No driving until after your first visit with your doctor. 5. Frequent changes of position and restricting sitting to 30 minutes at a time will help limit the amount of back spasms and stiffness you may experience. 6. You may discontinue the use of ambulatory aids (cane, crutches, etc.) once your strength and confidence allow. 7. You may behavior interventionist the shower and let water strike your incision when you arrive home at least once daily. Do not take a tub bath, sit in a hot tub or go into a swimming pool until after your first recheck in the office. SPECIAL CARE INSTRUCTIONS: VERY IMPORTANT TO READ AND REVIEW A. Your surgical incision has been closed with a cosmetic suture under the skin that will dissolve in about 6 weeks. In 14 days, you can use a pair of clean scissors and cut the suture that is left outside of the skin at the ends of your incision. 1. The small skin tapes can be removed 7 days after surgery if they have not fallen off by that point. 2. You may keep the wound open to air as much as possible to promote healing after post-op day number 5 unless told otherwise by your doctor. 3. If you think the wound looks like it is becoming infected (redness or worsening drainage) and/or you are experiencing fever, chill or worsening back pain and muscle spasms, contact the office so that we may evaluate you as soon as possible. B. Complications are uncommon, but please contact us if you have any signs or symptoms of: 1. wound infection (fever higher than 102.5 degrees F, redness, separation of wound, drainage, or increasing pain from the incision) 2. blood clots in legs (pain, swelling, redness and warmth in legs) 3. urinary tract infection (fever higher than 102.5 degrees F, burning upon urination or increased frequency of urination) 4. nerve problems (inability to walk on your toes or heels, numbness, loss of bowel or bladder control) 5. any other symptoms that concern you C. Please call the office at if you have any concerns or questions about your operation or recovery. D. No smoking! Smoking drastically decreases the chance of a solid fusion. E. Do not take any anti-inflammatory medications (Indocin, Advil, Motrin, Aspirin, Naprosyn, etc.) as these may inhibit the chance of a solid fusion. Tylenol is okay to take for pain. MANAGING PAIN AFTER SPINAL SURGERY 1. Narcotic medication is intended for short-term use and will be provided for surgical pain. Surgical pain usually lasts for a period of 4-6 weeks. Narcotic medication includes Percocet, Vicodin, Darvocet, Tylenol #3 or Lortab. 2. Longer-term pain is more appropriately treated with non-narcotic medication such as Tylenol ES. 3. Muscle spasm is not appropriately treated with narcotics. Muscle relaxers such as Soma, Flexeril or Skelaxin can be used along with Tylenol ES. 4. Remember that we all live with some "aches and pains". This is not unusual or uncommon after an injury or as we get older. a. Back pain is expected and may include muscle spasms for 4 to 6 weeks after surgery. The pain should gradually improve. If the pain worsens for no apparent reason, please contact the office. b. Intermittent leg pain may also be experienced and should not be concerned about unless it worsens for no apparent reason. If so, please contact the office. 5. We will provide appropriate medication within the normal guidelines of their prescribed use. We will also be very cautious and aware of potential abuse and extended duration of patients' medication needs. a. Pain medications are for your comfort and to assist with sleep and rest so that the tissue can heal. They are not provided in order to return to normal activity and should not be used through the day. To do so or worsening pain at night can result from ongoing tissue damage and development of tolerance to the prescribed medicine. 6. Please allow 2-3 days to process refills. Prescriptions will not be mailed but must be picked up at the office. FOLLOW UP VISIT: Keep your scheduled follow-up appointment. Any questions, please call the office at . Pending Studies at Discharge: No Stand-Alone Forms: My [facility] Skilled Items Patient informed of condition?: Yes DNR: No Discharge Level of Care: Acute rehab Communicable Disease: No Discharge Prognosis: Improving Lines: None Urinary Catheter: No Medications and DC Order Prescriptions: New cephalexin 250 mg Capsule 750 mg PO BID 4 Days Qty: 24 RF: 0 Continued clopidogrel [Plavix] 75 mg tablet 75 mg PO DAILY Qty: 90 RF: 3 levothyroxine 50 mcg tablet 50 mcg PO DAILY Qty: 90 RF: 0 (DME) OneTouch Ultra Blue Test Strip strip See Dose Instructions .ROUTE .MEDSUPPLY Qty: 10 RF: 0 (DME) lancets [OneTouch UltraSoft Lancets] misc See Dose Instructions .ROUTE .MEDSUPPLY Qty: 50 RF: 0 alendronate [Fosamax] 70 mg tablet 70 mg PO WEEKLY RF: 0 isosorbide mononitrate 120 mg tablet extended release 24 hr 120 mg PO DAILY Qty: 30 RF: 11 carvedilol 6.25 mg Tablet 6.25 mg PO BIDM RF: 0 ergocalciferol (vitamin D2) [Vitamin D2] 50,000 unit Capsule 50,000 unit PO WK RF: 0 nitroglycerin [Nitrostat] 0.4 mg Tablet, Sublingual 0.4 mg Sublingual DIRECTED PRN (Reason: Chest Pain) RF: 0 metformin 500 mg Tablet 500 mg PO BID RF: 0 aspirin 81 mg Tablet,Delayed Release (Dr/Ec) 81 mg PO QAM RF: 0 magnesium oxide 400 mg Capsule 400 mg PO BID RF: 0 sertraline 100 mg tablet 100 mg PO DAILY RF: 0 hydroxyzine pamoate 25 mg capsule 25 mg PO DAILY PRN (Reason: Anxiety) RF: 0 solifenacin [Vesicare] 5 mg tablet 5 mg PO DAILY RF: 0 atorvastatin 80 mg tablet 80 mg PO HS RF: 0 famotidine 20 mg tablet 20 mg PO DAILY RF: 0 oxybutynin chloride 5 mg tablet 5 mg PO BID RF: 0 omeprazole 20 mg capsule,delayed release(DR/EC) 20 mg PO DAILY RF: 0 Discharge Orders: Discharge Order (Routine); Ordered 03/20/21 Ordered By: Valerie Deras/Other Patient Handouts: A1C, High Blood Sugar (Hyperglycemia), Managing Type 2 Diabetes Admission Data Admit Date/Time: 03/12/21 19:42 Attending Provider: Janes Thakkar Admit Provider: Rusty Phillips Primary Care Provider: Codi Lee Other Providers: [facility] ; [facility] [place] ; Artemio Hart ; Rusty Phillips ; Kain Lindsey ; López Dailey Other Interventions: Discharge Summary Assessment (RN) Last Done: 03/20/21 16:08 Supervising Physician Co-Signing Physician Notes I personally examined the patient and verified all vega points of history and exam, discussed case, and agree with decision making with Dr Mays. Rehab approved! Patient happy. Discussed with over the phone. Vitals noted, in general she is awake and alert pleasant no distress. HEENT normocephalic atraumatic mucous membranes moist. Breathing unlabored no accessory muscle use good effort. Skin shows no rashes no pallor or icterus. Neuro without focal deficits. L1 burst fracturepresumed osteoporosisnow status post OR. PT/OT eval and treat. For ongoing care at rehab. Outpatient bone health eval and treat Otherwise as above Resident Activity Tracking Resident Involvement: Resident Care Provided Care Provided: Adult Hospital Medicine
[2021-03-19] MEDS ORDERED: ALENDRONATE SODIUM 70 MG TAB PO SCH (06:30)
--- NOTE | 2021-03-19 08:16 | Orthopedic Progress Note ---
Date of Service March 19, 2021 Assessment & Plan (1) Fracture of L1 vertebra: Plan: I have reviewed her x-rays performed yesterday. They demonstrate instrumentation be in place in appropriate alignment. No evidence of new collapse. She is cleared to go to rehab per orthopedics. Admission and Anticipated Discharge Date Admission Date: March 12, 2021 Subjective Patient states her back pain is improving. Denies any leg pain or weakness. Physical Exam Physical Exam: Patient is in a chair to bedside. Her brace is in place. She is appears comfortable. Is good strength testing lower extremities. Results & Data ([facility]) Vital Signs (Past 12 Hours) Vital Signs Temp Pulse Pulse Resp BP BP Pulse Ox 03/19/21 08:13 36.4 C L 100 H 16 106/71 94 03/19/21 07:18 36.6 C 60 16 174/81 H 94 03/19/21 04:28 36.4 C L 70 18 163/81 H 96 03/18/21 23:20 62 03/18/21 23:08 36.3 C L 63 18 129/68 94
[2021-03-19] MEDS: SERTRALINE HCL 100 MG TABLET PO SCH (08:40)
[2021-03-19] MEDS: INSULIN ASPART 100 UNITS/ML 3 ML PEN SC SCH ×4 (08:40→20:00)
[2021-03-19] MEDS: hydroCHLOROthiazide 25 MG TAB PO SCH (08:40)
[2021-03-19] MEDS: cephALEXin 250 MG CAP PO SCH ×2 (08:40→20:29)
[2021-03-19] MEDS: ASPIRIN 81 MG ECTAB PO SCH (08:40)
[2021-03-19] MEDS: carvediloL 6.25 MG TAB PO SCH ×2 (08:40→17:07)
[2021-03-19] MEDS: OXYBUTYNIN CHLORIDE 5 MG TAB PO SCH ×2 (08:40→20:29)
[2021-03-19] MEDS: ISOSORBIDE MONO EXTENDED REL 60 MG TABCR PO SCH (08:40)
[2021-03-19] MEDS: DOCUSATE SODIUM/SENNA 50/8.6MG TAB PO SCH ×2 (08:41→20:29)
[2021-03-19] MEDS: INSULIN GLARGINE SOLOSTAR 100 UNITS/ML 3 ML PEN SC SCH (08:41)
[2021-03-19] MEDS: PANTOprazole 40 MG TAB PO SCH ×2 (08:42→20:28)
--- NOTE | 2021-03-19 17:37 | Hospitalist Progress Note ---
Date of Service March 19, 2021 Assessment & Plan (1) Fracture of L1 vertebra: Plan: 65 yo M PMHx osteoporosis, sick sinus syndrome s/p ICD placement, CAD s/p PCI and ischemic cardiomyopathy, AFib, HTN, DM2, depression, hypothyroidism, GERD admitted for L1 burst fracture with retropulsion and canal stenosis. She is hemodynamically stable and now s/p decompression by Dr. Lindsey on 03/14. L1 Burst Fracture -- with retropulsion and canal stenosis; in setting of known osteoporosis * Mechanical fall at home on 03/12 resulting in "L1 burst fracture with 60% loss of vertebral body height and retropulsion with moderate-grade canal stenosis ... possible small posterior epidural hematoma". * S/p urgent decompression, fusion by Dr. Lindsey (orthopedics) on 03/14. * H&H stable throughout course * Continue incentive spirometry * Pain: Adequately controlled on acetaminophen > tramadol > breakthrough: hydromorphone -- Patient was rather tired and obtunded following polypharmacy 03/15 * Continue intensive PT, OT upon discharge Sick Sinus Syndrome s/p ICD Placement, CAD s/p PCI, Ischemic Cardiomyopathy: * Patient does have baseline atypical chest pain / angina relieved with nitroglycerin. * Evaluated by Cardiology pre-operatively given significant cardiac history. -- Continued medications for secondary risk prevention. -- Continued carvedilol during perioperative period. * No cardiac complaints since admission. * Resume Plavix on d/c (held while here) * Continue medications for secondary risk prevention. Complicated UTI -- now characterizing as incontinence and urgency * Had bacteriuria with UCx positive for pansensitive E. coli * Patient today reporting that she did have urinary symptoms prior to admission * Continue home oxybutynin * s/p 3 days of CFTX * Keflex 750mg b.i.d. x 7 days (begin 03/18) DM2: * A1c 6.5% -- at goal. * Resume metformin upon discharge Depression: * Continue sertraline. Osteoporosis: * Continue Fosamax, Vitamin D. Hypothyroidism: * Continue levothyroxine. GERD: * Continue PPI. Code Status: FULL CODE (2) Coronary artery disease: (3) Fatigue: (4) ICD (implantable cardioverter-defibrillator), biventricular, in situ: (5) Unstable angina: (6) Ischemic cardiomyopathy: (7) Hypothyroidism: (8) Osteoporosis: Admission and Anticipated Discharge Date Admission Date: March 12, 2021 Supervising Physician Co-Signing Physician Notes I personally examined the patient and verified all vega points of history and exam, discussed case, and agree with decision making with Dr Mays. still waiting on rehab approval. pain someitmes poorly controlled. Vitals noted, in general she is awake and alert pleasant no distress. HEENT normocephalic atraumatic mucous membranes moist. Breathing unlabored no accessory muscle use good effort. Skin shows no rashes no pallor or icterus. Neuro without focal deficits. L1 burst fracturepresumed osteoporosisnow status post OR. PT/OT eval and treat. Stable for SNF/rehab once approved/available. Continue pain control (adjust meds). Outpatient bone health eval and treat Otherwise as above Subjective NAEO. Feeling ok this morning. Pain and generalized discomfort still present, but manageable. Trying to resume ADLs here in the hospital as much as possible. No n/v. Appetite good. No CP/palpitations, SOB. Review of Systems Review of Systems: as per HPI Physical Exam Physical Exam: General: 65yoF lying back in her hospital chair, frail- appearing, who awakens easily and is fully A&O throughout our discussion. Mild distress sec to pain. HEENT: NCAT. Eyes - Sclera are white, anicteric, and without injection. Mouth - MMM with no tonsillar edema or exudates. Cardiac: Well perfused. Pulmonary: Good respiratory effort with symmetric expansion of the chest. No use of accessory muscles. Extremities: LE strength 4/5 bilaterally at knees and ankles. Distal sensation to light touch equal and present bilaterally. 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
--- NOTE | 2021-03-19 19:25 | Billing Data ---
Date of Service March 19, 2021 Coding Level of Care Code 38138 Subseq Hosp Care Lvl 2
[2021-03-19] MEDS ORDERED: oxyCODONE HCL IR 5 MG TAB (IMMEDIATE RELEASE) PO PRN (19:50)
[2021-03-19] MEDS ORDERED: KETOROLAC TROMETHAMINE 15 MG/ML VIAL IV ONE (19:50)
[2021-03-19] MEDS: ATORVASTATIN 40 MG TAB PO SCH (20:29)
[2021-03-19] MEDS: ONDANSETRON INJ 2 MG/ML 2 ML VIAL IV PRN (20:46)
[2021-03-20] MEDS: ACETAMINOPHEN 500 MG TAB PO SCH ×2 (06:10→15:05)
[2021-03-20] MEDS: POLYETHYLENE (MIRALAX) 17 GM PACK PO SCH ×3 (06:10→17:13)
[2021-03-20] MEDS: LEVOTHYROXINE SODIUM 50 MCG TABLET PO SCH (06:10)
[2021-03-20] MEDS: traMADol HCL 50 MG TABLET PO PRN ×2 (07:34→15:06)
[2021-03-20] MEDS: ASPIRIN 81 MG ECTAB PO SCH (07:36)
[2021-03-20] MEDS: cephALEXin 250 MG CAP PO SCH (07:36)
[2021-03-20] MEDS: ISOSORBIDE MONO EXTENDED REL 60 MG TABCR PO SCH (07:38)
[2021-03-20] MEDS: SERTRALINE HCL 100 MG TABLET PO SCH (07:39)
[2021-03-20] MEDS: PANTOprazole 40 MG TAB PO SCH (07:39)
[2021-03-20] MEDS: hydroCHLOROthiazide 25 MG TAB PO SCH (07:40)
[2021-03-20] MEDS: OXYBUTYNIN CHLORIDE 5 MG TAB PO SCH (07:40)
[2021-03-20] MEDS: carvediloL 6.25 MG TAB PO SCH (07:40)
[2021-03-20] MEDS: INSULIN GLARGINE SOLOSTAR 100 UNITS/ML 3 ML PEN SC SCH (09:47)
[2021-03-20] MEDS: INSULIN ASPART 100 UNITS/ML 3 ML PEN SC SCH ×2 (09:47→13:33)
[2021-03-20] MEDS: DOCUSATE SODIUM/SENNA 50/8.6MG TAB PO SCH (11:10)
--- NOTE | 2021-03-20 12:50 | Hospitalist Progress Note ---
Date of Service March 20, 2021 Assessment & Plan (1) Fracture of L1 vertebra: Plan: 65 yo M PMHx osteoporosis, sick sinus syndrome s/p ICD placement, CAD s/p PCI and ischemic cardiomyopathy, AFib, HTN, DM2, depression, hypothyroidism, GERD admitted for L1 burst fracture with retropulsion and canal stenosis. She is hemodynamically stable and now s/p decompression by Dr. Lindsey on 03/14. L1 Burst Fracture -- with retropulsion and canal stenosis; in setting of known osteoporosis * Mechanical fall at home on 03/12 resulting in "L1 burst fracture with 60% loss of vertebral body height and retropulsion with moderate-grade canal stenosis ... possible small posterior epidural hematoma". * S/p urgent decompression, fusion by Dr. Lindsey (orthopedics) on 03/14. * H&H stable throughout course * Continue incentive spirometry * Pain: Improving on acetaminophen > oxycodone, tramadol > breakthrough: hydromorphone -- Patient was rather tired and obtunded following polypharmacy 03/15 * Continue intensive PT, OT upon discharge Sick Sinus Syndrome s/p ICD Placement, CAD s/p PCI, Ischemic Cardiomyopathy: * Patient does have baseline atypical chest pain / angina relieved with nitroglycerin. * Evaluated by Cardiology pre-operatively given significant cardiac history. -- Continued medications for secondary risk prevention. -- Continued carvedilol during perioperative period. * No cardiac complaints since admission. * Resume Plavix on d/c (held while here) * Continue medications for secondary risk prevention. Complicated UTI -- symptoms improving, now characterizing as incontinence and urgency * Had bacteriuria with UCx positive for pansensitive E. coli * Patient today reporting that she did have urinary symptoms prior to admission * Continue home oxybutynin * s/p 3 days of CFTX * Keflex 750mg b.i.d. x 7 days (begin 03/18) DM2: * A1c 6.5% -- at goal. * Resume metformin upon discharge Depression: * Continue sertraline. Osteoporosis: * Continue Fosamax, Vitamin D. Hypothyroidism: * Continue levothyroxine. GERD: * Continue PPI. Code Status: FULL CODE Dispo: Awaiting placement - [facility] Diet: Regular PPX: Lovenox (added) (2) Coronary artery disease: (3) Fatigue: (4) ICD (implantable cardioverter-defibrillator), biventricular, in situ: (5) Unstable angina: (6) Ischemic cardiomyopathy: (7) Hypothyroidism: (8) Osteoporosis: Admission and Anticipated Discharge Date Admission Date: March 12, 2021 Subjective NAEO. Still in discomfort - although taking the oxycodone this morning certainly helped. Tylenol still being given scheduled. Trying to move around a little m ore. Appetite good. Urinary symptoms improving - still +dysuria. No abdominal pain. No n/v/d. Review of Systems Review of Systems: as per HPI Physical Exam Physical Exam: General: 65yoF lying back in her hospital chair, frail- appearing, who awakens easily and is fully A&O throughout our discussion. Mild distress sec to pain. HEENT: NCAT. Eyes - Sclera are white, anicteric, and without injection. Mouth - MMM with no tonsillar edema or exudates. Cardiac: NRRR, s1/s2 present w/o m/r/g Pulmonary: Good respiratory effort with symmetric expansion of the chest. No use of accessory muscles. Lungs CTAB w/o c/w Extremities: LE strength 4/5 bilaterally at knees and ankles. Distal sensation to light touch equal and present bilaterally. 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
[2021-03-20] MEDS ORDERED: ENOXAPARIN INJ 40 MG/0.4 ML SYR SQ SCH (14:15)
--- NOTE | 2021-03-20 19:00 | Billing Data ---
Date of Service March 20, 2021 Coding Level of Care Code D/C DAY MANAGEMENT <30 MINS
== END 2021-03-20 16:37 | DRG 456 ==
LOC: ED 15:37 → SUATTDRO 19:42 → 3N 19:42 → 2W 03-14 10:32 → 3N 03-19 22:26

== ENCOUNTER 2023-02-14 22:03 | Inpatient (IN) ==
[2023-02-14] MEDS ORDERED: ALBUT/IPRATROP 3MG/0.5MG NEB 3 ML VIAL NEB STA (22:26)
[2023-02-14] MEDS ORDERED: SODIUM CHLORIDE 0.9% 1000ML 1,000 ML IV SCH (22:30)
[2023-02-14 23:04] LABS: Basophils # (auto) 0.02 K/uL (0-0.2); Basophils % (auto) 0.3 %; Eosinophils # (auto) 0.06 K/uL (0-0.50); Eosinophils % (auto) 0.8 %; Hematocrit (blood only) 29.7 % (37.0-47.0); Hemoglobin 9.8 g/dl (12.0-16.0); Immature Granulocytes # (auto) 0.03 K/uL (0.01-0.20); Immature Granulocytes % (auto) 0.4 %; Lymphocytes # (auto) 0.48 K/uL (1.2-3.4); Lymphocytes % (auto) 6.1 %; Mean Corpuscular Hemoglobin 26.3 pg (25.0-34.0); Mean Corpuscular Volume 79.8 fL (80.0-100.0); Mean Platelet Volume 10.6 fL (9.4-12.4); Monocytes % (auto) 6.4 %; Neutrophils # (auto) 6.78 K/uL (1.40-6.50); Platelet Count 163 K/uL (130-400); RDW Coefficient of Variation 13.8 % (11.5-14.5); RDW Standard Deviation 40.2 fL (36.4-46.3); Red Blood Count 3.72 M/uL (4.20-5.40); White Blood Count 7.87 K/ul (4.8-10.8)
[2023-02-14] MEDS ORDERED: methylPREDNISolone 125 MG/2 ML VIAL IV STA (23:18)
[2023-02-14] MEDS ORDERED: CEFEPIME 2,000 MG/20 ML VIAL IV STA (23:18)
[2023-02-14] MEDS ORDERED: ACETAMINOPHEN 500 MG TAB PO STA (23:18)
[2023-02-14 23:21] LABS: Alanine Aminotransferase 26 U/L (7-52); Albumin Globulin Ratio 1.1 (0.9-2); Albumin Level 3.5 gm/dl (3.4-5.0); Alkaline Phosphatase 111 U/L (34-104); Anion Gap 13 (3-11); Aspartate Aminotransferase 42 U/L (13-39); BUN Creatinine Ratio 32.9 (10-20); Bilirubin,Total 1.1 mg/dl (0.2-1.0); Blood Urea Nitrogen 28 mg/dl (6-23); Calcium 8.9 mg/dl (8.6-10.3); Carbon Dioxide 22 mmol/L (21-32); Chloride 96 mmol/L (98-107); Est GFR (Non-African American) 69.9 ml/min; Globulin 3.3 gm/dl (2.5-4.0); Glucose 122 mg/dl (70-99(Fasting)); Magnesium 1.4 mg/dl (1.7-2.4); Potassium 3.7 mmol/L (3.5-5.1); Sodium 131 mmol/L (136-145); Total Protein 6.8 gm/dl (6.0-8.3)
[2023-02-14 23:28] LABS: Troponin I High Sensitivity 23.6 pg/ml (0-14)
[2023-02-14] MEDS: MAGNESIUM SULFATE / D5W 1 GM/100 ML BAG IV SCH (23:36)
[2023-02-15 00:19] LABS: Adenovirus PCR Not Detected (NotDetected); Bordetella parapertussis PCR Not Detected (NotDetected); Bordetella pertussis PCR Not Detected (NotDetected); Chlamydia pneumoniae PCR Not Detected (NotDetected); Coronavirus 229E PCR Not Detected (NotDetected); Coronavirus CoV-2 (COVID19)PCR Not Detected (NotDetected); Coronavirus HKU1 PCR Not Detected (NotDetected); Coronavirus NL63 PCR Not Detected (NotDetected); Coronavirus OC43PCR Not Detected (NotDetected); Human Metapneumovirus PCR Not Detected (NotDetected); Influenza A PCR Not Detected (NotDetected); Influenza B PCR Not Detected (NotDetected); Mycoplasma pneumoniae PCR Not Detected (NotDetected); Parainfluenza Virus 1 PCR Not Detected (NotDetected); Parainfluenza Virus 2 PCR Not Detected (NotDetected); Parainfluenza Virus 4 PCR Not Detected (NotDetected); Respiratory Syncytial VirusPCR Not Detected (NotDetected); Rhinovirus/Enterovirus PCR Not Detected (NotDetected)
[2023-02-15 00:29] LABS: Parainfluenza Virus 3 PCR DETECTED (NotDetected)
[2023-02-15] MEDS ORDERED: PANTOprazole 80 MG in DEXTROSE 5% 100 ML IV STA (00:34)
--- NOTE | 2023-02-15 00:36 | History & Physical Report ---
Date of Service February 15, 2023 Assessment & Plan (1) SOB (shortness of breath): Plan: Multifactorial: Aspiration pneumonia, patient septic Possible CHF, history of diastolic dysfunction UGIB Heme positive melanotic stool noted at the ER Acute on chronic anemia, hemoglobin drop from baseline secondary to above Troponin elevation secondary to illness CAD status post stent SSS status post PPM/history of PAF as per records, not on anticoagulation hypertension, stable hyperlipidemia on statin Rx DM 2 on oral medications, well-controlled as of recent hemoglobin A1c of 6.03 Nov 2022 hypothyroidism, euthyroid as of today's TSH alcohol abuse as per records, patient currently without signs of alcohol withdrawal. History dementia as per records Medical telemetry CS, Clindamycin Aspiration precautions CNA PCT eval Lasix 1 dose now for possible CHF IV PPI for UGIB Appropriate hold aspirin for now Follow H&H, transfuse PRBC if hemoglobin less than 8 and or for symptomatic anemia GI consult re: UGIB (Patient known to Dr. Robison.) N.p.o. until patient seen by GI in anticipation of endoscopy Follow troponin, TTE for progression Basal bolus insulin adjusted for n.p.o. status, ISS BSG goal 1 10-1 40 DT precautions, initiate SUKUMAR S if with signs of withdrawal. DVT prophylaxis. SCDs Re: UGIB Full code as per , Mr. John Painter. He requests updates from providers through [phone]. Text document was generated using [employer] voice recognition software. It may contain grammatical or spelling errors. Kindly contact undersigned for clarification of any documentation item in question. History of Present Illness Chief Complaint: Increased shortness of breath, sleeping a lot as per records I do not know as per patient Primary Care Provider: Luzma Yu MD History obtained from patient, family, and records. Limited history from patient secondary to dementia and hearing impairment. Medical history significant for chronic diastolic heart failure EF (60 to 65%, TTE 2021), CAD status post stent, SSS status post PPM, history of PAF as per records, hypertension, hyperlipidemia, DM 2 on oral medications, hypothyroidism, dementia, chronic anemia (baseline hemoglobin of 11), alcohol abuse as per records. Last confinement 2020 L1 burst fracture status post surgery and complicated UTI. Patient sleeping more than usual the last few days as per . Junky cough symptoms Not sure about sick contacts. Patient noted to be coughing with water/food intake for some time now as per . Increased shortness of breath noted at home. Patient not sure about fluid retention at home. Patient denies abdominal pain, black/bloody stools. Patient brought to the ER for evaluation. Patient given NSS, cefepime, Solu-Medrol and neb treatment at the ER. Patient without any complaints on questioning. Medical History as above EGD 2019 showed hiatal hernia and esophageal stenosis Surgical History : BTL, cholecystectomy, PPM Family History : Heart disease, anxiety/mood disorder Personal/Social history : Non-smoker, alcohol abuse as per records, retired [employer] employee Allergies Allergy/AdvReac Type Severity Reaction Status Date / Time latex Allergy Intermediate HIVES Verified 02/15/23 00:50 adhesive Allergy Mild SKIN Verified 02/15/23 00:50 IRRITATION penicillin V Allergy Unknown Unknown Verified 02/15/23 00:50 aspirin AdvReac Mild STOMACH Verified 02/15/23 00:50 UPSET Home Medications Medication Instructions Recorded Confirmed Type ergocalciferol (vitamin D2) 1,250 50,000 unit PO WK 06/16/18 02/15/23 History mcg (50,000 unit) capsule (Vitamin D2) nitroglycerin 0.4 mg sublingual 0.4 mg sublingual DIRECTED PRN 06/16/1802/15 History tablet (Nitrostat) Chest Pain metformin 500 mg tablet 500 mg PO BID 06/17/18 02/15/23 History aspirin 81 mg tablet,delayed 81 mg PO QAM 11/30/18 02/15/23 History release alendronate 70 mg tablet (Fosamax) 70 mg PO WEEKLY 03/28/19 02/15/23 History atorvastatin 80 mg tablet 80 mg PO HS 03/12/21 02/15/23 History famotidine 20 mg tablet 20 mg PO DAILY 03/12/21 02/15/23 History sertraline 100 mg tablet 100 mg PO DAILY 03/12/21 02/15/23 History solifenacin 5 mg tablet (Vesicare) 5 mg PO DAILY 03/12/21 02/15/23 History isosorbide mononitrate 120 mg 120 mg PO DAILY #90 tabs 04/17/22 02/15/23 Rx tablet,extended release 24 hr carvedilol 12.5 mg tablet 12.5 mg PO BID #180 tabs 08/21/22 02/15/23 Rx magnesium oxide 400 mg PO DAILY #90 caps 10/24/22 02/15/23 Rx acetaminophen 500 mg tablet 1,000 mg PO AMHS 02/15/23 02/15/23 History (Tylenol Extra Strength) thiamine HCl (vitamin B1) 100 mg 100 mg PO QAM 02/15/23 02/15/23 History tablet Past Med/Surg History Medical History Acid reflux disease with ulcer AF (paroxysmal atrial fibrillation) Alcohol abuse, unspecified Anxiety Anxiety disorder Anxiety state, unspecified Atrial fibrillation CAD (coronary artery disease) Cancer SKIN CANCER Cardiac arrest Cardiomyopathy Congestive cardiomyopathy Congestive heart failure, unspecified Cor athrscl-uns vessel Coronary artery disease Depression Depressive disorder, not elsewhere classified Diabetes mellitus, type 2 Dysphagia, oropharyngeal phase Fecal incontinence GERD (gastroesophageal reflux disease) Goiter Celia's thyroiditis HLD (hyperlipidemia) Hypertension Hypothyroidism PT DENIES. Ischemic cardiomyopathy Lumbago Lumbar compression fracture Ocular hypertension, unspecified eye Old myocardial infarct Other and unspecified hyperlipidemia Postmenopausal atrophic vaginitis Subclinical hypothyroidism Type 2 diabetes mellitus Unknown whether patient has any health problems Urinary tract infection FREQUENT Surgical History History of appendectomy History of cardiac cath 1 STENT (2016 @ [facility]) History of cholecystectomy History of colonoscopy History of esophagogastroduodenoscopy (EGD) History of heart artery stent ADVISED TO BRING STENT CARD History of tonsillectomy S/P placement of cardiac pacemaker ~15-20 YEARS AGO. FOLLOWS WITH [address] RUBI AND LAST CHECKED 4 MONTHS AGO Family History Mother Family history of diabetes mellitus Blind Hearing loss Hypertension Allergies Asthma Sister Family history of diabetes mellitus Coronary heart disease Father No problems noted. Denies family history of No family history of adverse response to anesthesia No family history of bleeding disorder Heart disease Cancer Stroke Social History Smoking Status: Never smoker Second Hand Exposure: No; Do You Dip or Chew Tobacco: No; Tobacco Cessation Education Requested by Patient: No Hx Alcohol Use: Yes Alcohol type: beer and hard liquor Alcohol Intake Frequency: 2-3 x/Week Hx Substance Use: No Preferred Language: Anguillan Communication Ability: Effective Furnace Cleaner Required: No Beliefs That Will Affect Care: None marital status: Current Living Situation: Spouse How many Children do You have: 1 Other Information That Helps Us Care for You: No Feels Safe at Home: Yes Safety Concerns: Feels Safe At This Time Assistive Devices: None Review of Systems Review of Systems: Could not be reliably obtained secondary to dementia Physical Exam Physical Exam: GENERAL: Demented, hard of hearing, no respiratory distress SKIN: Pallor, warm HEENT: Bespectacled, pale palpebral conjunctivae, no ptosis, dry buccal mucosa NECK : Supple, no tenderness CHEST : Decreased breath sounds, no tenderness HEART : RRR, no obvious murmurs ABDOMEN: Some distention, nontender RECTAL : Intact sphincter, dark stool (FOBT positive ) EXTREMITIES : No LE swelling/tenderness, no other conspicuous deformities noted NEUROLOGIC : Demented, no facial asymmetry, hard of hearing, no other gross focality Results & Data Results & Data Vital Signs (Past 12 Hours) Vital Signs Temp Pulse Pulse Resp BP BP Pulse Ox 02/14/23 23:30 74 27 H 125/64 92 02/14/23 23:00 70 27 H 99 02/14/23 22:30 81 37 H 90 02/14/23 22:26 76 21 90 02/14/23 23:02 02/14/23 22:36 73 24 131/62 94 02/14/23 22:35 91 02/14/23 22:35 02/14/23 22:26 75 02/14/23 22:07 38 C H 80 18 99/61 L 90 O2 Del Method O2 Flow Rate 02/14/23 23:30 Room Air 02/14/23 23:00 Nasal Cannula 2 02/14/23 22:30 02/14/23 22:26 02/14/23 23:02 Nasal Cannula 2 02/14/23 22:36 Room Air 02/14/23 22:35 Room Air 02/14/23 22:35 Room Air 02/14/23 22:26 02/14/23 22:07 Room Air Laboratory Results Laboratory Results WBC 7.87 K/ul (4.8-10.8) 02/14/23 22:32 RBC 3.72 M/uL (4.20-5.40) L 02/14/23 22:32 Hgb 9.8 g/dl (12.0-16.0) L 02/14/23: Hct 29.7 % (37.0-47.0) L 02/14/23: MCV 79.8 fL (80.0-100.0) L 02/14/23: MCH 26.3 pg (25.0-34.0) 02/14/23: MCHC 33.0 g/dL (32.0-36.0) 02/14/23: RDW Std Deviation 40.2 fL (36.4-46.3) 02/14/23: RDW Coeff of Chucky 13.8 % (11.5-14.5) 02/14/23: Plt Count 163 K/uL (130-400) 02/14/23: MPV 10.6 fL (9.4-12.4) 02/14/23: Immature Gran % (Auto) 0.4 % 02/14/23: Neut % (Auto) 86.0 % 02/14/23: Lymph % (Auto) 6.1 % 02/14/23: Christian % (Auto) 6.4 % 02/14/23: Eos % (Auto) 0.8 % 02/14/23: Baso % (Auto) 0.3 % 02/14/23: Neut # (Auto) 6.78 K/uL (1.40-6.50) H 02/14/23: Lymph # (Auto) 0.48 K/uL (1.2-3.4) L 02/14/23: Christian # (Auto) 0.50 K/uL (0.11-0.59) 02/14/23: Eos # (Auto) 0.06 K/uL (0-0.50) 02/14/23: Baso # (Auto) 0.02 K/uL (0-0.2) 02/14/23: Immature Gran # (Auto) 0.03 K/uL (0.01-0.20) 02/14/23: Sodium 131 mmol/L (136-145) L 08/12/23 22:32 Potassium 3.7 mmol/L (3.5-5.1) 02/14/23 22:32 Chloride 96 mmol/L (98-107) L 02/14/23 22:32 Carbon Dioxide 22 mmol/L (21-32) 02/14/23 22:32 Anion Gap 13 (3-11) H 02/14/23 22:32 BUN 28 mg/dl (6-23) H 02/14/23 22:32 Creatinine 0.85 mg/dl (0.6-1.2) 02/14/23 22:32 Est Cr Clr Drug Dosing Not Reportable 02/14/23 22:32 Est GFR ( Amer) 81.0 ml/min 02/14/23 22:32 Est GFR (Non-Af Amer) 69.9 ml/min 02/14/23 22:32 BUN/Creatinine Ratio 32.9 (10-20) H 02/14/23 22:32 Glucose 122 mg/dl (70-99(Fasting)) H 02/14/23 22:32 Calcium 8.9 mg/dl (8.6-10.3) 02/14/23 22:32 Magnesium 1.4 mg/dl (1.7-2.4) L 02/14/23 22:32 Total Bilirubin 1.1 mg/dl (0.2-1.0) H 02/14/23 22:32 AST 42 U/L (13-39) H 02/14/23 22:32 ALT 26 U/L (7-52) 02/14/23 22:32 Alkaline Phosphatase 111 U/L (34-104) H 02/14/23 22:32 Troponin I High Sens 23.6 pg/ml (0-14) H 02/14/23 22:32 Total Protein 6.8 gm/dl (6.0-8.3) 02/14/23 22:32 Albumin 3.5 gm/dl (3.4-5.0) 02/14/23 22:32 Globulin 3.3 gm/dl (2.5-4.0) 02/14/23 22:32 Albumin/Globulin Ratio 1.1 (0.9-2) 02/14/23 22:32 Adenovirus (PCR) Not Detected (NotDetected) 02/14/23 22:52 B. pertussis DNA (PCR) Not Detected (NotDetected) 02/14/23 22:52 B.parapertussis DNA PCR Not Detected (NotDetected) 02/14/23 22:52 C. pneumoniae DNA (PCR) Not Detected (NotDetected) 02/14/23 22:52 Coronavirus OC43 (PCR) Not Detected (NotDetected) 02/14/23 22:52 Coronavirus HKU1 (PCR) Not Detected (NotDetected) 02/14/23 22:52 Coronavirus 229E (PCR) Not Detected (NotDetected) 02/14/23 22:52 SARS-CoV-2 (PCR) Not Detected (NotDetected) 02/14/23 22:52 Coronavirus NL63 (PCR) Not Detected (NotDetected) 02/14/23 22:52 Human Metapneumovir PCR Not Detected (NotDetected) 02/14/23 22:52 Influenza Type A (PCR) Not Detected (NotDetected) 02/14/23 22:52 Influenza Type B (PCR) Not Detected (NotDetected) 02/14/23 22:52 M. pneumoniae (PCR) Not Detected (NotDetected) 02/14/23 22:52 Parainfluenza 1 (PCR) Not Detected (NotDetected) 02/14/23 22:52 Parainfluenza 2 (PCR) Not Detected (NotDetected) 02/14/23 22:52 Parainfluenza 3 (PCR) DETECTED (NotDetected) A* 02/14/23 22:52 Parainfluenza 4 (PCR) Not Detected (NotDetected) 02/14/23 22:52 RSV (PCR) Not Detected (NotDetected) 02/14/23 22:52 Entero/Rhino (PCR) Not Detected (NotDetected) 02/14/23 22:[address] head: No acute intracranial hemorrhage, midline shift, or mass effect. Chest x-ray as per my interpretation interstitial infiltrates EKG as per my interpretation : Rate 75, NSR, LAD, LAFB, LBBB
[2023-02-15] MEDS ORDERED: THIAMINE HCL 100 MG in SYRINGE 9 ML IV STA (00:38)
[2023-02-15 00:49] LABS: INR 1.1 (0.9-1.1); Prothrombin Time 11.5 Seconds (9.0-12.0)
[2023-02-15] MEDS ORDERED: CLINDAMYCIN/D5W 600 MG/50 ML BAG IV STA (00:49)
[2023-02-15] MEDS: MAGNESIUM SULFATE / D5W 1 GM/100 ML BAG IV SCH (01:22)
[2023-02-15 01:55] LABS: Base Excess ABG -4.2 mEq/L (-9-1.8); HCO3 ABG 20 mmol/L (19-24); Oxygen Saturation ABG 93.4 % (90-95); PCO2 ABG 34 mmHg (35-46); PO2 ABG 76 mmHg (80-95); pH ABG 7.38 (7.35-7.45)
[2023-02-15 01:59] LABS: Allen Test Pos (Pos)
[2023-02-15] MEDS ORDERED: GLUCOSE 40% GEL 15 GM TUBE PO PRN (02:21)
[2023-02-15] MEDS ORDERED: DEXTROSE 50% 50 ML SYRINGE IV PRN (02:21)
[2023-02-15] MEDS ORDERED: ACETAMINOPHEN 325 MG TAB PO PRN (02:21)
[2023-02-15] MEDS ORDERED: LORazepam 2 MG/1 ML VIAL IV PRN (02:21)
[2023-02-15] MEDS ORDERED: GLUCOSE 10 TAB/TUBE PO PRN (02:21)
[2023-02-15] MEDS ORDERED: GLUCAGON FOR INJ 1 MG VIAL SQ PRN (02:21)
[2023-02-15] MEDS ORDERED: CARBOHYDRATES FOR HYPOGLYCEMIA PO PRN (02:21)
[2023-02-15] MEDS ORDERED: ALBUMIN 25% 25 GM/100 ML VIAL IV ONE (02:30)
[2023-02-15] MEDS ORDERED: FUROSEMIDE INJ 20 MG/2 ML VIAL IV ONE (02:30)
[2023-02-15] MEDS: INSULIN ASPART PER UNIT CHARGE SC SCH ×5 (02:55→20:38)
--- NOTE | 2023-02-15 03:44 | CT Scan Report ---
Exam(s): CT HEAD Without Contrast EXAM: CT Head Without Intravenous Contrast CLINICAL HISTORY: Reason for exam: ams. TECHNIQUE: Axial computed tomography images of the head/brain without intravenous contrast. CTDI is 35.65 mGy and DLP is 624.41 mGy-cm. Automated exposure control was utilized for the study. A dose lowering technique was utilized adhering to the principles of ALARA. COMPARISON: No relevant prior studies available. FINDINGS: No acute intracranial hemorrhage. No midline shift or mass effect. The territorial pollard-white matter differentiation is maintained throughout. Age-related cerebral volume loss. Periventricular and subcortical white matter hypoattenuation, consistent with chronic microangiopathy. The visualized orbits appear grossly unremarkable. The calvarium is intact. The visualized paranasal sinuses and mastoid air cells are grossly clear. IMPRESSION: No acute intracranial hemorrhage, midline shift, or mass effect. Electronically signed by: Segundo Rivera MD 02/15/23 03:44 AM
[2023-02-15] MEDS: PANTOprazole 40 MG in DEXTROSE 5% 100 ML IV SCH ×3 (05:11→14:18)
[2023-02-15] MEDS: BENZONATATE 100 MG CAPSULE PO PRN ×2 (05:16→11:35)
[2023-02-15 07:20] LABS: Hematocrit (blood only) 26.6 % (37.0-47.0); Hemoglobin 8.8 g/dl (12.0-16.0); Mean Corpuscular Hemoglobin 26.2 pg (25.0-34.0); Mean Corpuscular Hgb Conc 33.1 g/dL (32.0-36.0); Mean Corpuscular Volume 79.2 fL (80.0-100.0); Platelet Count 134 K/uL (130-400); RDW Coefficient of Variation 13.8 % (11.5-14.5); RDW Standard Deviation 39.7 fL (36.4-46.3); Red Blood Count 3.36 M/uL (4.20-5.40)
[2023-02-15 07:39] LABS: BUN Creatinine Ratio 31.2 (10-20); Calcium 8.8 mg/dl (8.6-10.3); Creatinine Clr Calc Pharmacy 54.5 ml/min; Est GFR (African American) 91.3 ml/min; Est GFR (Non-African American) 78.8 ml/min; Magnesium 2.1 mg/dl (1.7-2.4); Potassium 3.5 mmol/L (3.5-5.1)
[2023-02-15 07:53] LABS: Basophils # (auto) 0.01 K/uL (0-0.2); Basophils % (auto) 0.2 %; Immature Granulocytes # (auto) 0.02 K/uL (0.01-0.20); Immature Granulocytes % (auto) 0.4 %; Lymphocytes # (auto) 0.28 K/uL (1.2-3.4); Lymphocytes % (auto) 5.3 %; Monocytes # (auto) 0.11 K/uL (0.11-0.59); Monocytes % (auto) 2.1 %; Neutrophils # (auto) 4.88 K/uL (1.40-6.50)
[2023-02-15] MEDS: SERTRALINE HCL 100 MG TABLET PO SCH (08:19)
[2023-02-15] MEDS: MULTIVITAMIN TAB PO SCH (08:19)
[2023-02-15] MEDS: ISOSORBIDE MONO EXTENDED REL 60 MG TABCR PO SCH (08:19)
[2023-02-15] MEDS: OXYBUTYNIN CHLORIDE XL 5 MG TABCR PO SCH (08:19)
[2023-02-15] MEDS: FOLIC ACID 1 MG TAB PO SCH (08:19)
[2023-02-15] MEDS ORDERED: carvediloL 12.5 MG TAB PO SCH (09:00)
--- NOTE | 2023-02-15 09:05 | XRay Report ---
XR chest 1V portable CLINICAL HISTORY: Dyspnea TECHNIQUE: Single frontal radiograph of the chest was obtained. Comparison: Comparison is made to chest radiograph 03/22/2022 FINDINGS: Pacemaker defibrillator is seen. The cardiomediastinal silhouette is normal. Airspace opacities in th e bilateral upper lungs are seen, likely superimposed upon previously noted chronic lung disease. No evidence of pleural effusion or pneumothorax. IMPRESSION: Bilateral upper lobe predominant interstitial disease with likely superimposed airspace opacities whi ch may represent atelectasis, pneumonia, less likely aspiration. ACT 112: Negative or not required by law. Electronically signed by: Tao Sesay M.D. 02/15/2023 9:04 AM
[2023-02-15] MEDS: carvediloL 3.125 MG TAB PO SCH ×2 (09:53→21:19)
[2023-02-15] MEDS ORDERED: CLINDAMYCIN/D5W 600 MG/50 ML BAG IV SCH (10:00)
[2023-02-15] MEDS ORDERED: ALBUTEROL 0.083% NEBU SOLN 3 ML VIAL NEB PRN (10:16)
[2023-02-15] MEDS: guaiFENesin 600 MG TABCR PO SCH ×2 (11:37→21:02)
--- NOTE | 2023-02-15 11:43 | Electrocardiogram Report ---
Test Reason : Blood Pressure : / mmHG Vent. Rate : 076 BPM Atrial Rate : 076 BPM P-R Int : 202 ms QRS Dur : 150 ms QT Int : 438 ms P-R-T Axes : -11 -53 098 degrees QTc Int : 492 ms Normal sinus rhythm Left axis deviation Left bundle branch block Abnormal ECG When compared with ECG of 12-MAR-2022 14:35, [place] interval has decreased Left bundle branch block is now Present Minimal criteria for Septal infarct are no longer Present Confirmed by José Marquez ([id number]) on 02/15/2023 11:43:16 AM Referred By: REFERRED SELF Confirmed By:José Marquez
[2023-02-15 12:09] LABS: Hematocrit (blood only) 25.8 % (37.0-47.0); Hemoglobin 8.7 g/dl (12.0-16.0)
--- NOTE | 2023-02-15 12:14 | XCELERA ---
[id number]
[2023-02-15 13:45] LABS: Appearance Urine Cloudy (Clear); Bacteria Urine Automated Negative (Negative); Bilirubin Urine Negative (Negative); Blood Urine 2+ (Negative); Color Urine Yellow; Epithelial Cell Urine Auto 20-30 /lpf (0-5); Glucose Urine UA Negative (Negative); Ketones Urine Trace (Negative); Leukocyte Esterase Urine Negative (Negative); Nitrite Urine Negative (Negative); Protein Urine 1+ (Negative); Specific Gravity Urine 1.016 (1.000-1.030); Urobilinogen Urine Negative (Negative); pH Urine 5.5 (4.5-7.5)
--- NOTE | 2023-02-15 13:54 | Gastrointestinal Consultation ---
Date of Consultation February 15, 2023 History of Present Illness Reason for Consultation: Anemia Attending Physician: Demi Matos MD History of Present Illness Pt known to Dr. Robison admit with SOB consulted for anemia and downtrending hgb. Pt with single dark BM yesterday, no prior GI symptoms, admit with hgb 10 from prior 11 in November. MCV 79. BUN 28. On admit, Bp and pulse are stable. Dark FOBT pos stool noted by Hospitalist. Overnight, BP has remained stable, on PPI gtt, Hgb now 8.7. BUN 24. Currently being w/u for pneumonia, CHF. CXR on admit with chornic lung disease with bilat upper lobe opac. O2 sats low 90's RA per nurses VS. Infectious screen pos paraflu. Trops 26 --> 17. Given clinda, awaiting echo. Takes baby ASA, o/w no NSAIDs. On Fosamax as outpt. On pepcid 20 for reflux. PE: Comfortable. She is noted to have mild incr WOB. She is able to lie flat. No cough during interview. o2 sat 95 by me. Lungs with mild diffuse wheezing Abd: soft NT Rectal: no stool in vault Labs reviewed. A/P: Anemia, downtrending hgb Increased troponins, ? pneumonia. - Cont follow hgb. Please check iron studies. OK for PPI IV bolus BID. Can begin clears. No need endoscopy at this time. OK to check hgb daily. No need to check FOBT. Please resume aspirin given increased trop and h/o CAD. Allergies Allergy/AdvReac Type Severity Reaction Status Date / Time latex Allergy Intermediate HIVES Verified 02/15/23 00:50 adhesive Allergy Mild SKIN Verified 02/15/23 00:50 IRRITATION penicillin V Allergy Unknown Unknown Verified 02/15/23 00:50 aspirin AdvReac Mild STOMACH Verified 02/15/23 00:50 UPSET Home Medications Medication Instructions Recorded Confirmed Type ergocalciferol (vitamin D2) 1,250 50,000 unit PO WK 06/16/18 02/15/23 History mcg (50,000 unit) capsule (Vitamin D2) nitroglycerin 0.4 mg sublingual 0.4 mg sublingual DIRECTED PRN 06/16/18 02/15/23 History tablet (Nitrostat) Chest Pain metformin 500 mg tablet 500 mg PO BID 06/17/18 02/15/23 History aspirin 81 mg tablet,delayed 81 mg PO QAM 11/30/18 02/15/23 History release alendronate 70 mg tablet (Fosamax) 70 mg PO WEEKLY 03/28/19 02/15/23 History atorvastatin 80 mg tablet 80 mg PO HS 03/12/21 02/15/23 History famotidine 20 mg tablet 20 mg PO DAILY 03/12/21 02/15/23 History sertraline 100 mg tablet 100 mg PO DAILY 03/12/21 02/15/23 History solifenacin 5 mg tablet (Vesicare) 5 mg PO DAILY 03/12/21 02/15/23 History isosorbide mononitrate 120 mg 120 mg PO DAILY #90 tabs 04/17/22 02/15/23 Rx tablet,extended release 24 hr carvedilol 12.5 mg tablet 12.5 mg PO BID #180 tabs 08/21/22 02/15/23 Rx magnesium oxide 400 mg PO DAILY #90 caps 10/24/22 02/15/23 Rx acetaminophen 500 mg tablet 1,000 mg PO AMHS 02/15/23 02/15/23 History (Tylenol Extra Strength) thiamine HCl (vitamin B1) 100 mg 100 mg PO QAM 02/15/23 02/15/23 History tablet Patient History Medical History Acid reflux disease with ulcer AF (paroxysmal atrial fibrillation) Alcohol abuse, unspecified Anxiety Anxiety disorder Anxiety state, unspecified Atrial fibrillation CAD (coronary artery disease) Cancer SKIN CANCER Cardiac arrest Cardiomyopathy Congestive cardiomyopathy Congestive heart failure, unspecified Cor athrscl-uns vessel Coronary artery disease Depression Depressive disorder, not elsewhere classified Diabetes mellitus, type 2 Dysphagia, oropharyngeal phase Fecal incontinence GERD (gastroesophageal reflux disease) Goiter Celia's thyroiditis HLD (hyperlipidemia) Hypertension Hypothyroidism PT DENIES. Ischemic cardiomyopathy Lumbago Lumbar compression fracture Ocular hypertension, unspecified eye Old myocardial infarct Other and unspecified hyperlipidemia Postmenopausal atrophic vaginitis Subclinical hypothyroidism Type 2 diabetes mellitus Unknown whether patient has any health problems Urinary tract infection FREQUENT Surgical History History of appendectomy History of cardiac cath 1 STENT (2016 @ [facility]) History of cholecystectomy History of colonoscopy History of esophagogastroduodenoscopy (EGD) History of heart artery stent ADVISED TO BRING STENT CARD History of tonsillectomy S/P placement of cardiac pacemaker ~15-20 YEARS AGO[address] FOLLOWS WITH DR RUBI AND LAST CHECKED 4 MONTHS AGO Family History Mother Family history of diabetes mellitus Blind Hearing loss Hypertension Allergies Asthma Sister Family history of diabetes mellitus Coronary heart disease Father No problems noted. Denies family history of No family history of adverse response to anesthesia No family history of bleeding disorder Heart disease Cancer Stroke Social History Smoking Status: Never smoker Second Hand Exposure: No; Do You Dip or Chew Tobacco: No; Tobacco Cessation Education Requested by Patient: No Hx Alcohol Use: Yes Alcohol type: beer and hard liquor Alcohol Intake Frequency: 2-3 x/Week Hx Substance Use: No Preferred Language: Turkmen Communication Ability: Effective Loom Technician Required: No Beliefs That Will Affect Care: None marital status: Current Living Situation: Spouse How many Children do You have: 1 Other Information That Helps Us Care for You: No Feels Safe at Home: Yes Safety Concerns: Feels Safe At This Time Assistive Devices: None Results & Data Vital Signs (Past 12 Hours) Vital Signs Temp Pulse Pulse Resp BP BP Pulse Ox 02/15/23 11:00 36.5 C 63 20 132/64 92 02/15/23 07:45 02/15/23 08:02 36.4 C L 61 18 138/66 95 02/15/23 07:18 74 02/15/23 02:37 70 02/15/23 02:19 02/15/23 02:19 36.3 C L 71 22 117/62 94 02/15/23 02:19 36.3 C L 71 22 117/62 94 O2 Del Method 02/15/23 11:00 Room Air 02/15/23 07:45 Room Air 02/15/23 08:02 Room Air 02/15/23 07:18 02/15/23 02:37 02/15/23 02:19 Room Air 02/15/23 02:19 Room Air 02/15/23 02:19 Room Air
--- NOTE | 2023-02-15 15:32 | Communication Note ---
Date of Service: February 15, 2023 Patient was seen and examined at bedside. 67-year-old lady with PMH of HFpEF [2021 TTE with EF of 60 to 65%], CAD s/p stent, SSS s/p PPM, PAF, HTN, HLD, T2DM on oral meds, hypothyroidism, dementia, chronic anemia [baseline hemoglobin of 10 to 11], alcohol abuse, L1 burst fracture status post surgery 2020 presenting with complaint of sleeping more aaron n usual for the last few days [employer], cough with yellowish sputum for 4 days [employer], diarrhea for 2 days [employer]. Patient noted to be coughing with water/food intake for some time now as per . Patient is being managed for the following: Pneumonia likely CAP Parainfluenza 3 positive Sepsis POA: Admitting respiratory rate and temperature elevated, lactate WNL. Concern for aspiration: Per family member, speech consult. Aspiration precaution. Patient presented with cough with yellow sputum for 4 days [employer]. Admitting CXR with bilateral upper lobe opacities, less likely aspiration. Patient started on clindamycin at presentation, given bilateral upper lobe airspace opacities, will switch to Rocephin 02/15 and Doxy 02/15. Patient on room air, very hard of hearing and difficult to assess subjectively but does not appear to be in distress and was not having labored breathing Possible UGIB: Per H&P note heme positive melanotic stool noted at the ER. Baseline hemoglobin of 10-11, admitting hemoglobin of 9.8, trended down to 8.8. GI evaluated, iron studies, IV PPI, clear liquid diet, no endoscopy, hemoglobin daily, can resume aspirin. Elevated troponin/likely demand ischemia/history of CAD s/p stents : Troponin flat trended 20s, likely secondary to acute illness. Continue home aspirin and cardiac medications. History of HFpEF: 2021 TTE with EF of 60 to 65%. BNP of 365 at presentation. No crackles or BLE edema on exam. Echo repeated, EF of 60 to 65%, no regional wall motion abnormalities, left ventricular systolic function normal. Other chronic medical conditions: Continue with/resume home meds as and when able. SSS status post PPM/history of PAF as per records, not on anticoagulation hypertension, stable hyperlipidemia on statin Rx DM 2 on oral medications, well-controlled as of recent hemoglobin A1c of 6.03 Nov 2022. Sliding scale insulin. hypothyroidism, euthyroid as of today's TSH alcohol abuse as per records, patient currently without signs of alcohol withdrawal. DT precautions, initiate SUKUMAR S if with signs of withdrawal. History dementia as per records DVT prophylaxis. SCDs Re: UGIB Full code as per , Mr. John Painter. [phone]. On examination, patient is very hard of hearing, Heart/lung/abdomen examination fairly WNL. For detailed information on the patient, refer to today's H&P note. Text document was generated using [employer] voice recognition software. It may contain grammatical or spelling errors. Kindly contact undersigned for clarification of any documentation item in question.
[2023-02-15] MEDS: cefTRIAXone SODIUM 2,000 MG in DEXTROSE 5% 50 ML IV SCH (16:02)
[2023-02-15] MEDS: ASPIRIN 81 MG ECTAB PO SCH (16:05)
[2023-02-15] MEDS: DOXYCYCLINE HYCLATE 100 MG in DEXTROSE 5% 100 ML IV SCH (16:49)
[2023-02-15] MEDS: PANTOprazole 40 MG in SYRINGE 0 ML IV SCH (20:40)
[2023-02-15] MEDS: ATORVASTATIN 40 MG TAB PO SCH (21:02)
--- NOTE | 2023-02-15 21:41 | Emergency Department Note ---
Impression & Plan Parainfluenza, Pneumonia, RAD (reactive airway disease) ED Provider Note CHIEF COMPLAINT: SOB HISTORY OF PRESENT ILLNESS: This 67-year-old female patient with past medical history of paroxysmal atrial fib, diabetes mellitus type 2, hypertension, GERD, osteoporosis, depression, coronary artery disease, AICD secondary to ischemic cardiomyopathy, hypothyroidism presents to the emergency department with complaints of increasing shortness of breath. Patient's is at the bedside stating that she did not want to come to the hospital. She does not smoke cigarettes but has been around secondhand smoke for many years. Patient has not chronic cough that seems to be a bit worse than usual. Although they deny any fever. REVIEW OF SYSTEMS: A review of systems was performed with positives and pertinent negatives listed in the history of present illness. 10 systems were reviewed and are otherwise negative. ALLERGIES: see below MEDICATIONS: see below PMH: see below SOCIAL HISTORY: see below DDx: pneumonia, pneumothorax, COPD, CHF, cardiac ischemia, pulmonary embolism, viral etiology PHYSICAL EXAM: Vital signs reviewed. General: Well-appearing 67-year-old female, in no significant distress. HEENT: No scleral icterus, PERRLA, neck supple. Moist mucous membranes. Hard of hearing. Cardiovascular: Regular rate and rhythm, no extra sounds. Pulmonary: Coarse breath sounds to auscultation bilaterally, increased work of breathing. Nasal cannula oxygen in place. Abdomen: Soft, nontender, nondistended, positive bowel sounds. Musculoskeletal: Atraumatic, no peripheral edema. Neuro: Awake alert and oriented x3, speech is clear Skin: Warm, dry, no rash EMERGENCY DEPARTMENT COURSE/MDM: This patient was evaluated and appeared to be in some discomfort but no distress. External medical records were reviewed. She was resting on nasal cannula oxygen. Much of the history was obtained from the patient's who is at the bedside. Pt was given a Duoneb treatment and IV solumedral. CXR was obtained and reveals bilateral consolidation, likely PNA. Blood cx were obtained and pt was medicated with IV cefepime. Patient was also given magnesium repletion. Patient's respiratory bio fire was positive for parainfluenza virus. Case was discussed with hospitalist service who will evaluate the patient for admission and further management due to oxygen requir ements. MONITORING: An order for cardiac monitoring was placed and the patient is noted to be in a normal sinus rhythm 73 beats per minute. RADIOLOGY: Chest x-ray to my interpretation reveals interstitial disease with bilateral consolidation, likely pneumonia. Otherwise defer to radiology. EKG: To my interpretation reveals a normal sinus rhythm at 76 bpm. Left axis deviation with a left bundle branch block. When compared to previous dated March 12, 2022, left bundle branch block is new. DISPOSITION: Admission Past Med/Surg History Medical History Acid reflux disease with ulcer AF (paroxysmal atrial fibrillation) Alcohol abuse, unspecified Anxiety Anxiety disorder Anxiety state, unspecified Atrial fibrillation CAD (coronary artery disease) Cancer SKIN CANCER Cardiac arrest Cardiomyopathy Congestive cardiomyopathy Congestive heart failure, unspecified Cor athrscl-uns vessel Coronary artery disease Depression Depressive disorder, not elsewhere classified Diabetes mellitus, type 2 Dysphagia, oropharyngeal phase Fecal incontinence GERD (gastroesophageal reflux disease) Goiter Celia's thyroiditis HLD (hyperlipidemia) Hypertension Hypothyroidism PT DENIES. Ischemic cardiomyopathy Lumbago Lumbar compression fracture Ocular hypertension, unspecified eye Old myocardial infarct Other and unspecified hyperlipidemia Postmenopausal atrophic vaginitis Subclinical hypothyroidism Type 2 diabetes mellitus Unknown whether patient has any health problems Urinary tract infection FREQUENT Surgical History History of appendectomy History of cardiac cath 1 STENT (2016 @ [facility]) History of cholecystectomy History of colonoscopy History of esophagogastroduodenoscopy (EGD) History of heart artery stent ADVISED TO BRING STENT CARD History of tonsillectomy S/P placement of cardiac pacemaker ~15-20 YEARS AGO[address] FOLLOWS WITH [address] RUBI AND LAST CHECKED 4 MONTHS AGO Family History Mother Family history of diabetes mellitus Blind Hearing loss Hypertension Allergies Asthma Sister Family history of diabetes mellitus Coronary heart disease Father No problems noted. 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 Required: No Beliefs That Will Affect Care: None marital status: Current Living Situation: Spouse How many Children do You have: 1 Other Information That Helps Us Care for You: No Feels Safe at Home: Yes Safety Concerns: Feels Safe At This Time Assistive Devices: Raised Toilet Seat and Walker Allergies Allergies Allergy/AdvReac Type Severity Reaction Status Date / Time latex Allergy Intermediate HIVES Verified 02/15/23 00:50 adhesive Allergy Mild SKIN Verified 02/15/23 00:50 IRRITATION penicillin V Allergy Unknown Unknown Verified 02/15/23 00:50 aspirin AdvReac Mild STOMACH Verified 02/15/23 00:50 UPSET Home Meds Home Medications Medication Instructions Recorded Confirmed ergocalciferol (vitamin D2) 1,250 50,000 unit PO WK 06/16/18 02/15/23 mcg (50,000 unit) capsule (Vitamin D2) nitroglycerin 0.4 mg sublingual 0.4 mg sublingual DIRECTED PRN 06/16/18 02/15/23 tablet (Nitrostat) Chest Pain metformin 500 mg tablet 500 mg PO BID 06/17/18 02/15/23 aspirin 81 mg tablet,delayed 81 mg PO QAM 11/30/18 02/15/23 release alendronate 70 mg tablet (Fosamax) 70 mg PO WEEKLY 03/28/19 02/15/23 atorvastatin 80 mg tablet 80 mg PO HS 03/12/21 02/15/23 famotidine 20 mg tablet 20 mg PO DAILY 03/12/21 02/15/23 sertraline 100 mg tablet 100 mg PO DAILY 03/12/21 02/15/23 solifenacin 5 mg tablet (Vesicare) 5 mg PO DAILY 03/12/21 02/15/23 acetaminophen 500 mg tablet 1,000 mg PO AMHS 02/15/23 02/15/23 (Tylenol Extra Strength) thiamine HCl (vitamin B1) 100 mg 100 mg PO QAM 02/15/23 02/15/23 tablet Previous Rx's Medication Instructions Recorded isosorbide mononitrate 120 mg 120 mg PO DAILY #90 tabs 04/17/22 tablet,extended release 24 hr carvedilol 12.5 mg tablet 12.5 mg PO BID #180 tabs 08/21/22 magnesium oxide 400 mg PO DAILY #90 caps 10/24/22 Results & Data (ED) Vital Signs Vital Signs - 24 hr 02/14/23 22:07 02/14/23 22:26 02/14/23 22:35 Temperature 38 C H Temperature Source Temporal Artery Scan Pulse Rate 80 75 Pulse Rate [Apical] Pulse Rate from SpO2 Sensor Pulse Rhythm Regular Pulse Strength Normal Respiratory Rate 18 Respiratory Effort / Characteristics Non-Labored Spontaneous Respiratory Depth Normal Respiratory Pattern Regular Blood Pressure 99/61 L Blood Pressure [Left Arm] Blood Pressure Mean 73 Blood Pressure Mean [Left Arm] Blood Pressure Position Sitting Pulse Oximetry 90 Oxygen Delivery Method Room Air Room Air Oxygen Flow Rate Sepsis Recent Fever Within 48 Hours No Sepsis New/Unexplained Change in Mental Status N/A Sepsis Action Taken by Nursing No Action Required 02/14/23 22:35 02/14/23 22:36 02/14/23 23:02 Temperature Temperature Source Pulse Rate Pulse Rate [Apical] 73 Pulse Rate from SpO2 Sensor Pulse Rhythm Pulse Strength Respiratory Rate 24 Respiratory Effort / Characteristics Short of Breath Short of Breath Respiratory Depth Respiratory Pattern Blood Pressure Blood Pressure [Left Arm] 131/62 Blood Pressure Mean Blood Pressure Mean [Left Arm] 85 Blood Pressure Position Pulse Oximetry 91 94 Oxygen Delivery Method Room Air Room Air Nasal Cannula Oxygen Flow Rate 2 Sepsis Recent Fever Within 48 Hours Sepsis New/Unexplained Change in Mental Status Sepsis Action Taken by Nursing 02/14/23 22:26 02/14/23 22:30 02/14/23 23:00 Temperature Temperature Source Pulse Rate 76 81 70 Pulse Rate [Apical] Pulse Rate from SpO2 Sensor 75 81 72 Pulse Rhythm Pulse Strength Respiratory Rate 21 37 H 27 H Respiratory Effort / Characteristics Respiratory Depth Respiratory Pattern Blood Pressure Blood Pressure [Left Arm] Blood Pressure Mean Blood Pressure Mean [Left Arm] Blood Pressure Position Pulse Oximetry 90 90 99 Oxygen Delivery Method Nasal Cannula Oxygen Flow Rate 2 Sepsis Recent Fever Within 48 Hours Sepsis New/Unexplained Change in Mental Status Sepsis Action Taken by Nursing 02/14/23 23:30 Temperature Temperature Source Pulse Rate 74 Pulse Rate [Apical] Pulse Rate from SpO2 Sensor 74 Pulse Rhythm Pulse Strength Respiratory Rate 27 H Respiratory Effort / Characteristics Respiratory Depth Respiratory Pattern Blood Pressure 125/64 Blood Pressure [Left Arm] Blood Pressure Mean 84 Blood Pressure Mean [Left Arm] Blood Pressure Position Pulse Oximetry 92 Oxygen Delivery Method Room Air Oxygen Flow Rate Sepsis Recent Fever Within 48 Hours Sepsis New/Unexplained Change in Mental Status Sepsis Action Taken by Assisted Medications Current Medication List: was personally reviewed by va Laboratory Data Attestation: I reviewed the patient's lab results. 02/15/23 11:56 02/15/23 06:51 Lab Results 02/14/23 02/14/23 02/14/23 Range/Units 22:32 22:32 22:32 WBC 7.87 (4.8-10.8) K/ul RBC 3.72 L (4.20-5.40) M/uL Hgb 9.8 L (12.0-16.0) g/dl Hct 29.7 L (37.0-47.0) % MCV 79.8 L (80.0-100.0) fL MCH 26.3 (25.0-34.0) pg MCHC 33.0 (32.0-36.0) g/dL RDW Std Deviation 40.2 (36.4-46.3) fL RDW Coeff of Chucky 13.8 (11.5-14.5) % Plt Count 163 (130-400) K/uL MPV 10.6 (9.4-12.4) fL Immature Gran % (Auto) 0.4 % Neut % (Auto) 86.0 % Lymph % (Auto) 6.1 % Morrill % (Auto) 6.4 % Eos % (Auto) 0.8 % Baso % (Auto) 0.3 % Neut # (Auto) 6.78 H (1.40-6.50) K/uL Lymph # (Auto) 0.48 L (1.2-3.4) K/uL Morrill # (Auto) 0.50 (0.11-0.59) K/uL Eos # (Auto) 0.06 (0-0.50) K/uL Baso # (Auto) 0.02 (0-0.2) K/uL Immature Gran # (Auto) 0.03 (0.01-0.20) K/uL PT 11.5 (9.0-12.0) Seconds INR 1.1 (0.9-1.1) Sodium 131 L (136-145) mmol/L Potassium 3.7 (3.5-5.1) mmol/L Chloride 96 L (98-107) mmol/L Carbon Dioxide 22 (21-32) mmol/L Anion Gap 13 H (3-11) BUN 28 H (6-23) mg/dl Creatinine 0.85 (0.6-1.2) mg/dl Est Cr Clr Drug Dosing Not Reportable Est GFR ( Amer) 81.0 ml/min Est GFR (Non-Af Amer) 69.9 ml/min BUN/Creatinine Ratio 32.9 H (10-20) Glucose 122 H (70-99(Fasting)) mg/dl Osmolality (280-300) mOsm/kg Calcium 8.9 (8.6-10.3) mg/dl Magnesium 1.4 L (1.7-2.4) mg/dl Total Bilirubin 1.1 H (0.2-1.0) mg/dl AST 42 H (13-39) U/L ALT 26 (7-52) U/L Alkaline Phosphatase 111 H (34-104) U/L Troponin I High Sens 23.6 H (0-14) pg/ml B-Natriuretic Peptide (0-100) pg/ml Total Protein 6.8 (6.0-8.3) gm/dl Albumin 3.5 (3.4-5.0) gm/dl Globulin 3.3 (2.5-4.0) gm/dl Albumin/Globulin Ratio 1.1 (0.9-2) TSH (0.300-4.500) uIu/ml Adenovirus (PCR) (NotDetected) B. pertussis DNA (PCR) (NotDetected) B.parapertussis DNA PCR (NotDetected) C. pneumoniae DNA (PCR) (NotDetected) Coronavirus OC43 (PCR) (NotDetected) Coronavirus HKU1 (PCR) (NotDetected) Coronavirus 229E (PCR) (NotDetected) SARS-CoV-2 (PCR) (NotDetected) Coronavirus NL63 (PCR) (NotDetected) Human Metapneumovir PCR (NotDetected) Influenza Type A (PCR) (NotDetected) Influenza Type B (PCR) (NotDetected) M. pneumoniae (PCR) (NotDetected) Parainfluenza 1 (PCR) (NotDetected) Parainfluenza 2 (PCR) (NotDetected) Parainfluenza 3 (PCR) (NotDetected) Parainfluenza 4 (PCR) (NotDetected) RSV (PCR) (NotDetected) Entero/Rhino (PCR) (NotDetected) 02/14/23 02/14/23 02/14/23 Range/Units 22:32 22:32 22:32 WBC (4.8-10.8) K/ul RBC (4.20-5.40) M/uL Hgb (12.0-16.0) g/dl Hct (37.0-47.0) % MCV (80.0-100.0) fL MCH (25.0-34.0) pg MCHC (32.0-36.0) g/dL RDW Std Deviation (36.4-46.3) fL RDW Coeff of Chucky (11.5-14.5) % Plt Count (130-400) K/uL MPV (9.4-12.4) fL Immature Gran % (Auto) % Neut % (Auto) % Lymph % (Auto) % Morrill % (Auto) % Eos % (Auto) % Baso % (Auto) % Neut # (Auto) (1.40-6.50) K/uL Lymph # (Auto) (1.2-3.4) K/uL Morrill # (Auto) (0.11-0.59) K/uL Eos # (Auto) (0-0.50) K/uL Baso # (Auto) (0-0.2) K/uL Immature Gran # (Auto) (0.01-0.20) K/uL PT (9.0-12.0) Seconds INR (0.9-1.1) Sodium (136-145) mmol/L Potassium (3.5-5.1) mmol/L Chloride (98-107) mmol/L Carbon Dioxide (21-32) mmol/L Anion Gap (3-11) BUN (6-23) mg/dl Creatinine (0.6-1.2) mg/dl Est Cr Clr Drug Dosing Est GFR ( Amer) ml/min Est GFR (Non-Af Amer) ml/min BUN/Creatinine Ratio (10-20) Glucose (70-99(Fasting)) mg/dl Osmolality 281 (280-300) mOsm/kg Calcium (8.6-10.3) mg/dl Magnesium (1.7-2.4) mg/dl Total Bilirubin (0.2-1.0) mg/dl AST (13-39) U/L ALT (7-52) U/L Alkaline Phosphatase (34-104) U/L Troponin I High Sens (0-14) pg/ml B-Natriuretic Peptide 365 H (0-100) pg/ml Total Protein (6.0-8.3) gm/dl Albumin (3.4-5.0) gm/dl Globulin (2.5-4.0) gm/dl Albumin/Globulin Ratio (0.9-2) TSH 1.221 (0.300-4.500) uIu/ml Adenovirus (PCR) (NotDetected) B. pertussis DNA (PCR) (NotDetected) B.parapertussis DNA PCR (NotDetected) C. pneumoniae DNA (PCR) (NotDetected) Coronavirus OC43 (PCR) (NotDetected) Coronavirus HKU1 (PCR) (NotDetected) Coronavirus 229E (PCR) (NotDetected) SARS-CoV-2 (PCR) (NotDetected) Coronavirus NL63 (PCR) (NotDetected) Human Metapneumovir PCR (NotDetected) Influenza Type A (PCR) (NotDetected) Influenza Type B (PCR) (NotDetected) M. pneumoniae (PCR) (NotDetected) Parainfluenza 1 (PCR) (NotDetected) Parainfluenza 2 (PCR) (NotDetected) Parainfluenza 3 (PCR) (NotDetected) Parainfluenza 4 (PCR) (NotDetected) RSV (PCR) (NotDetected) Entero/Rhino (PCR) (NotDetected) 02/14/23 Range/Units 22:52 WBC (4.8-10.8) K/ul RBC (4.20-5.40) M/uL Hgb (12.0-16.0) g/dl Hct (37.0-47.0) % MCV (80.0-100.0) fL MCH (25.0-34.0) pg MCHC (32.0-36.0) g/dL RDW Std Deviation (36.4-46.3) fL RDW Coeff of Chucky (11.5-14.5) % Plt Count (130-400) K/uL MPV (9.4-12.4) fL Immature Gran % (Auto) % Neut % (Auto) % Lymph % (Auto) % Morrill % (Auto) % Eos % (Auto) % Baso % (Auto) % Neut # (Auto) (1.40-6.50) K/uL Lymph # (Auto) (1.2-3.4) K/uL Morrill # (Auto) (0.11-0.59) K/uL Eos # (Auto) (0-0.50) K/uL Baso # (Auto) (0-0.2) K/uL Immature Gran # (Auto) (0.01-0.20) K/uL PT (9.0-12.0) Seconds INR (0.9-1.1) Sodium (136-145) mmol/L Potassium (3.5-5.1) mmol/L Chloride (98-107) mmol/L Carbon Dioxide (21-32) mmol/L Anion Gap (3-11) BUN (6-23) mg/dl Creatinine (0.6-1.2) mg/dl Est Cr Clr Drug Dosing Est GFR ( Amer) ml/min Est GFR (Non-Af Amer) ml/min BUN/Creatinine Ratio (10-20) Glucose (70-99(Fasting)) mg/dl Osmolality (280-300) mOsm/kg Calcium (8.6-10.3) mg/dl Magnesium (1.7-2.4) mg/dl Total Bilirubin (0.2-1.0) mg/dl AST (13-39) U/L ALT (7-52) U/L Alkaline Phosphatase (34-104) U/L Troponin I High Sens (0-14) pg/ml B-Natriuretic Peptide (0-100) pg/ml Total Protein (6.0-8.3) gm/dl Albumin (3.4-5.0) gm/dl Globulin (2.5-4.0) gm/dl Albumin/Globulin Ratio (0.9-2) TSH (0.300-4.500) uIu/ml Adenovirus (PCR) Not Detected (NotDetected) B. pertussis DNA (PCR) Not Detected (NotDetected) B.parapertussis DNA PCR Not Detected (NotDetected) C. pneumoniae DNA (PCR) Not Detected (NotDetected) Coronavirus OC43 (PCR) Not Detected (NotDetected) Coronavirus HKU1 (PCR) Not Detected (NotDetected) Coronavirus 229E (PCR) Not Detected (NotDetected) SARS-CoV-2 (PCR) Not Detected (NotDetected) Coronavirus NL63 (PCR) Not Detected (NotDetected) Human Metapneumovir PCR Not Detected (NotDetected) Influenza Type A (PCR) Not Detected (NotDetected) Influenza Type B (PCR) Not Detected (NotDetected) M. pneumoniae (PCR) Not Detected (NotDetected) Parainfluenza 1 (PCR) Not Detected (NotDetected) Parainfluenza 2 (PCR) Not Detected (NotDetected) Parainfluenza 3 (PCR) DETECTED A* (NotDetected) Parainfluenza 4 (PCR) Not Detected (NotDetected) RSV (PCR) Not Detected (NotDetected) Entero/Rhino (PCR) Not Detected (NotDetected) Administered Medications Acetaminophen (Acetaminophen 325 Mg Tab) 650 mg PO Q4H PRN PRN Reason: Pain or Fever Stop: 03/17/23 02:20 Last Admin: 02/15/23 05:18 Dose: 650 mg Documented By: BG Aspirin (Aspirin 81 Mg Ectab) 81 mg PO [facility] Stop: 03/17/23 14:14 Last Admin: 02/17/23 08:54 Dose: 81 mg Documented By: Admin: 02/16/23 08:58 Dose: 81 mg Documented By: Admin: 02/15/23 16:05 Dose: 81 mg Documented By: ODILON Atorvastatin Calcium (Atorvastatin 40 Mg Tab) 80 mg PO [facility] Stop: 03/17/23 20:59 Last Admin: 02/16/23 20:42 Dose: 80 mg Documented By: Admin: 02/15/23 21:02 Dose: 80 mg Documented By: BG Benzonatate (Benzonatate 100 Mg Capsule) 100 mg PO TID PRN PRN Reason: Cough Stop: 03/17/23 04:46 Last Admin: 02/17/23 07:32 Dose: 100 mg Documented By: Admin: 02/16/23 01:05 Dose: 100 mg Documented By: Admin: 02/15/23 11:35 Dose: 100 mg Documented By: Admin: 02/15/23 05:16 Dose: 100 mg Documented By: BG Carvedilol (Carvedilol 3.125 Mg Tab) 3.125 mg PO BID ARTIE Stop: 03/17/23 08:59 Last Admin: 02/17/23 08:54 Dose: 3.125 mg Documented By: Admin: 02/16/23 20:43 Dose: 3.125 mg Documented By: Admin: 02/16/23 09:08 Dose: 3.125 mg Documented By: Admin: 02/15/23 21:19 Dose: 3.125 mg Documented By: Admin: 02/15/23 09:53 Dose: 3.125 mg Documented By: ODILON Cyanocobalamin (Cyanocobalamin (B-12) 100 Mcg Tablet) 100 mcg PO QAM ARTIE Stop: 03/18/23 09:29 Last Admin: 02/17/23 08:54 Dose: 100 mcg Documented By: Admin: 02/16/23 10:12 Dose: 100 mcg Documented By: ALY Folic Acid (Folic Acid 1 Mg Tab) 1 mg PO QAM ARTIE Stop: 03/17/23 08:59 Last Admin: 02/17/23 08:55 Dose: 1 mg Documented By: Admin: 02/16/23 09:06 Dose: 1 mg Documented By: Admin: 02/15/23 08:19 Dose: 1 mg Documented By: ODILON Pantoprazole Sodium 40 mg/ (Syringe) 10 mls @ 5 mls/min IV BID ARTIE Stop: 03/17/23 20:59 Last Admin: 02/17/23 08:54 Dose: 5 mls/min Documented By: Admin: 02/16/23 20:43 Dose: 5 mls/min Documented By: Admin: 02/16/23 09:06 Dose: 5 mls/min Documented By: Admin: 02/15/23 20:40 Dose: 5 mls/min Documented By: BG Ceftriaxone Sodium 2,000 mg/ (Dextrose) 70 mls @ 100 mls/hr IV Q24H [facility]; Protocol Stop: 02/22/23 15:44 Last Infusion: 02/16/23 16:20 Dose: 0 mls/hr Documented By: Admin: 02/16/23 15:38 Dose: 100 mls/hr Documented By: Infusion: 02/15/23 16:49 Dose: 0 mls/hr Documented By: Admin: 02/15/23 16:02 Dose: 100 mls/hr Documented By: ODILON Doxycycline Hyclate 100 mg/ (Dextrose) 110 mls @ 50 mls/hr IV Q12H [facility] Stop: 02/22/23 15:44 Last Infusion: 02/17/23 05:44 Dose: 0 mls/hr Documented By: Admin: 02/17/23 03:08 Dose: 50 mls/hr Documented By: Infusion: 02/16/23 17:51 Dose: 0 mls/hr Documented By: Admin: 02/16/23 15:38 Dose: 50 mls/hr Documented By: Infusion: 02/16/23 07:10 Dose: 0 mls/hr Documented By: Admin: 02/16/23 04:30 Dose: 50 mls/hr Documented By: Infusion: 02/15/23 19:22 Dose: 0 mls/hr Documented By: Admin: 02/15/23 16:49 Dose: 50 mls/hr Documented By: ODILON Insulin Aspart (Insulin Aspart Per Unit Charge) 0 units SC ACHS [facility] Stop: 03/17/23 02:20 Last Admin: 02/17/23 08:57 Dose: 2 units Documented By: ALY Co-signed By: CATHIE Admin: 02/16/23 20:38 Dose: Not Given Documented By: Admin: 02/16/23 18:00 Dose: 1 units Documented By: ALY Co-signed By: CATHIE Admin: 02/16/23 13:01 Dose: 4 units Documented By: ALY Co-signed By: CATHIE Admin: 02/16/23 08:57 Dose: 2 units Documented By: ALY Co-signed By: CATHIE Admin: 02/15/23 20:38 Dose: Not Given Documented By: Admin: 02/15/23 18:10 Dose: Not Given Documented By: Admin: 02/15/23 13:01 Dose: 2 units Documented By: ODILON Co-signed By: YOMI Admin: 02/15/23 08:18 Dose: 3 units Documented By: ODILON Co-signed By: JAMES Admin: 02/15/23 02:55 Dose: Not Given Documented By: BG Isosorbide Mononitrate (Isosorbide Morrill Extended Rel 60 Mg Tabcr) 120 mg PO DAILY ARTIE Stop: 03/17/23 08:59 Last Admin: 02/17/23 08:54 Dose: 120 mg Documented By: Admin: 02/16/23 09:06 Dose: 120 mg Documented By: Admin: 02/15/23 08:19 Dose: 120 mg Documented By: ODILON Multivitamins (Multivitamin Tab) 1 tab PO QAM ARTIE Stop: 03/17/23 08:59 Last Admin: 02/17/23 08:55 Dose: 1 tab Documented By: Admin: 02/16/23 09:06 Dose: 1 tab Documented By: Admin: 02/15/23 08:19 Dose: 1 tab Documented By: ODILON Oxybutynin Chloride (Oxybutynin Chloride Xl 5 Mg Tabcr) 5 mg PO DAILY ARTIE Stop: 03/17/23 08:59 Last Admin: 02/17/23 08:55 Dose: 5 mg Documented By: Admin: 02/16/23 09:06 Dose: 5 mg Documented By: Admin: 02/15/23 08:19 Dose: 5 mg Documented By: ODILON Sertraline HCl (Sertraline Hcl 100 Mg Tablet) 100 mg PO DAILY ARTIE Stop: 03/17/23 08:59 Last Admin: 02/16/23 09:06 Dose: 100 mg Documented By: Admin: 02/15/23 08:19 Dose: 100 mg Documented By: ODILON Thiamine HCl (Thiamine Hcl 100 Mg Tab) 100 mg PO QAM ARTIE Stop: 03/18/23 08:59 Last Admin: 02/17/23 08:53 Dose: 100 mg Documented By: Admin: 02/16/23 09:09 Dose: 100 mg Documented By: ALY Discontinued Medications Acetaminophen (Acetaminophen 500 Mg Tab) 1,000 mg PO NOW STA Stop: 02/14/23 23:19 Last Admin: 02/14/23 23:36 Dose: 1,000 mg Documented By: LIDA Albuterol (Albut/Ipratrop 3mg/0.5mg Neb 3 Ml Vial) 3 ml NEB NOW STA; Protocol Stop: 02/14/23 22:27 Last Admin: 02/14/23 22:48 Dose: 3 ml Documented By: CATHIE(2) Furosemide (Furosemide Inj 20 Mg/2 Ml Vial) 20 mg IV 0230 ONE Stop: 02/15/23 02:31 Last Admin: 02/15/23 02:47 Dose: 20 mg Documented By: BG Guaifenesin (Guaifenesin 600 Mg Tabcr) 600 mg PO Q12 ARTIE Stop: 03/17/23 10:14 Last Admin: 02/16/23 20:43 Dose: 600 mg Documented By: Admin: 02/16/23 09:06 Dose: 600 mg Documented By: Admin: 02/15/23 21:02 Dose: 600 mg Documented By: Admin: 02/15/23 11:37 Dose: 600 mg Documented By: ODILON Guaifenesin/Codeine Phosphate (Guaifenesin/Codeine 100mg/10mg 5ml Udc) 5 ml PO NOW STA Stop: 02/17/23 01:10 Last Admin: 02/17/23 01:17 Dose: 5 ml Documented By: BG Sodium Chloride (Nss 1000ml) 1,000 mls @ 999 mls/hr IV .Q1H1M ARTIE Stop: 02/14/23 23:30 Last Infusion: 02/15/23 00:42 Dose: 0 mls/hr Documented By: Admin: 02/14/23 22:47 Dose: 999 mls/hr Documented By: CATHIE(2) Cefepime HCl (Maxipime) 2,000 mg in 20 mls @ 5 mls/min IV NOW STA; Protocol Stop: 02/14/23 23:21 Last Admin: 02/14/23 23:37 Dose: 5 mls/min Documented By: LIDA Magnesium Sulfate/Dextrose (Magnesium Sulfate / D5w) 1 gm in 100 mls @ 100 mls/hr IV Q1H ARTIE Stop: 02/15/23 01:24 Last Infusion: 02/15/23 02:56 Dose: 0 mls/hr Documented By: Admin: 02/15/23 01:22 Dose: 100 mls/hr Documented By: Infusion: 02/15/23 00:42 Dose: 0 mls/hr Documented By: Admin: 02/14/23 23:36 Dose: 100 mls/hr Documented By: LIDA Pantoprazole Sodium 80 mg/ (Dextrose) 120 mls @ 480 mls/hr IV ONE STA Stop: 02/15/23 00:48 Last Infusion: 02/15/23 03:13 Dose: 0 mls/hr Documented By: Admin: 02/15/23 02:54 Dose: 480 mls/hr Documented By: BG Thiamine HCl 100 mg/ Syringe 10 mls @ 2 mls/min IV NOW STA Stop: 02/15/23 00:42 Last Admin: 02/15/23 01:30 Dose: 2 mls/min Documented By: LIDA Clindamycin Phosphate (Cleocin/D5w) 600 mg in 50 mls @ 100 mls/hr IV NOW STA Stop: 02/15/23 01:18 Last Infusion: 02/15/23 02:56 Dose: 0 mls/hr Documented By: Admin: 02/15/23 01:35 Dose: 100 mls/hr Documented By: LIDA Albumin Human (Albumin 25%) 25 gm in 100 mls @ 50 mls/hr IV ONE ONE Stop: 02/15/23 04:29 Last Infusion: 02/15/23 05:51 Dose: 0 mls/hr Documented By: Admin: 02/15/23 03:38 Dose: 50 mls/hr Documented By: BG Clindamycin Phosphate (Cleocin/D5w) 600 mg in 50 mls @ 100 mls/hr IV Q8H ARTIE Stop: 02/22/23 09:59 Last Infusion: 02/15/23 11:33 Dose: 0 mls/hr Documented By: Admin: 02/15/23 10:27 Dose: 100 mls/hr Documented By: ODILON Pantoprazole Sodium 40 mg/ (Dextrose) 100 mls @ 20 mls/hr IV Q5H ARTIE Stop: 03/17/23 02:29 Last Admin: 02/15/23 14:18 Dose: Not Given Documented By: Infusion: 02/15/23 14:18 Dose: 0 mls/hr Documented By: Admin: 02/15/23 10:27 Dose: 20 mls/hr Documented By: Infusion: 02/15/23 10:11 Dose: 20 mls/hr Documented By: Infusion: 02/15/23 08:17 Dose: 20 mls/hr Documented By: Admin: 02/15/23 05:11 Dose: 20 mls/hr Documented By: BG Magnesium Sulfate/Dextrose (Magnesium Sulfate / D5w) 1 gm in 100 mls @ 50 mls/hr IV Q2H ARTIE Stop: 02/16/23 13:29 Last Infusion: 02/16/23 14:07 Dose: 0 mls/hr Documented By: Admin: 02/16/23 12:03 Dose: 50 mls/hr Documented By: Infusion: 02/16/23 12:01 Dose: 50 mls/hr Documented By: Admin: 02/16/23 10:01 Dose: 50 mls/hr Documented By: ALY Potassium Phosphate 15 mmol/ (Sodium Chloride) 255 mls @ 88 mls/hr IV ONE ONE Stop: 02/16/23 12:38 Last Infusion: 02/16/23 14:07 Dose: 0 mls/hr Documented By: Admin: 02/16/23 10:54 Dose: 88 mls/hr Documented By: ALY Methylprednisolone (Methylprednisolone 125 Mg/2 Ml Vial) 60 mg IV NOW STA Stop: 02/14/23 23:19 Last Admin: 02/14/23 23:37 Dose: 60 mg Documented By: LIDA Potassium Chloride (Potassium Chloride Crtab 20 Meq Tabcr) 40 meq PO Q2H ARTIE Stop: 02/16/23 11:31 Last Admin: 02/16/23 13:01 Dose: 40 meq Documented By: Admin: 02/16/23 10:01 Dose: 40 meq Documented By: ALY Imaging Data Radiologist's Impression: Chest X-Ray 02/14/23 22:26 XR chest 1V portable CLINICAL HISTORY: Dyspnea TECHNIQUE: Single frontal radiograph of the chest was obtained. Comparison: Comparison is made to chest radiograph 03/22/2022 FINDINGS: Pacemaker defibrillator is seen. The cardiomediastinal silhouette is normal. Airspace opacities in the bilateral upper lungs are seen, likely superimposed upon previously noted chronic lung disease. No evidence of pleural effusion or pneumothorax. IMPRESSION: Bilateral upper lobe predominant interstitial disease with likely superimposed airspace opacities which may represent atelectasis, pneumonia, less likely aspiration. ACT 112: Negative or not required by law. Electronically signed by: Tao Sesay M.D. 02/15/2023 9:[address] 02/15/23 00:40 Exam(s): CT HEAD Without Contrast EXAM: CT Head Without Intravenous Contrast CLINICAL HISTORY: Reason for exam: ams. TECHNIQUE: Axial computed tomography images of the head/brain without intravenous contrast. CTDI is 35.65 mGy and DLP is 624.41 mGy-cm. Automated exposure control was utilized for the study. A dose lowering technique was utilized adhering to the principles of ALARA. COMPARISON: No relevant prior studies available. FINDINGS: No acute intracranial hemorrhage. No midline shift or mass effect. The territorial pollard-white matter differentiation is maintained throughout. Age-related cerebral volume loss. Periventricular and subcortical white matter hypoattenuation, consistent with chronic microangiopathy. The visualized orbits appear grossly unremarkable. The calvarium is intact. The visualized paranasal sinuses and mastoid air cells are grossly clear. IMPRESSION: No acute intracranial hemorrhage, midline shift, or mass effect. Electronically signed by: Segundo Rivera MD 02/15/23 03:44 AM Discharge Plan Visit Data Chief Complaint: Shortness of Breath/Dyspnea Stated Complaint: BAD COUGH,SOB,SLEEPING A LOT ED Provider: Yasmin Goel Discharge Problem: Parainfluenza, Pneumonia, RAD (reactive airway disease) Patient Disposition: Admitted As Inpatient Discharge Instructions Interventions: ED Discharge Assessment Last Done: 02/15/23 01:50
[2023-02-16] MEDS: BENZONATATE 100 MG CAPSULE PO PRN (01:05)
[2023-02-16] MEDS: DOXYCYCLINE HYCLATE 100 MG in DEXTROSE 5% 100 ML IV SCH ×2 (04:30→15:38)
[2023-02-16 06:32] LABS: Hematocrit (blood only) 26.9 % (37.0-47.0); Mean Corpuscular Hemoglobin 26.5 pg (25.0-34.0); Mean Corpuscular Hgb Conc 33.5 g/dL (32.0-36.0); Mean Corpuscular Volume 79.1 fL (80.0-100.0); Mean Platelet Volume 9.6 fL (9.4-12.4); Platelet Count 170 K/uL (130-400); RDW Coefficient of Variation 13.7 % (11.5-14.5); RDW Standard Deviation 39.8 fL (36.4-46.3); White Blood Count 7.18 K/ul (4.8-10.8)
[2023-02-16 07:01] LABS: BUN Creatinine Ratio 23.6 (10-20); Calcium 8.6 mg/dl (8.6-10.3); Creatinine Clr Calc Pharmacy 58.3 ml/min; Est GFR (Non-African American) 85.4 ml/min; Magnesium 1.5 mg/dl (1.7-2.4); Phosphorus 1.8 mg/dl (2.5-4.9); Potassium 2.9 mmol/L (3.5-5.1)
[2023-02-16 07:14] LABS: Folate (Folic Acid),Ser orPlas 6.09 ng/ml (>5.38)
[2023-02-16] MEDS: INSULIN ASPART PER UNIT CHARGE SC SCH ×4 (08:57→20:38)
[2023-02-16] MEDS: ASPIRIN 81 MG ECTAB PO SCH (08:58)
[2023-02-16] MEDS: carvediloL 3.125 MG TAB PO SCH ×3 (08:58→20:43)
[2023-02-16] MEDS: FOLIC ACID 1 MG TAB PO SCH (09:06)
[2023-02-16] MEDS: PANTOprazole 40 MG in SYRINGE 0 ML IV SCH ×2 (09:06→20:43)
[2023-02-16] MEDS: guaiFENesin 600 MG TABCR PO SCH ×2 (09:06→20:43)
[2023-02-16] MEDS: MULTIVITAMIN TAB PO SCH (09:06)
[2023-02-16] MEDS: SERTRALINE HCL 100 MG TABLET PO SCH (09:06)
[2023-02-16] MEDS: OXYBUTYNIN CHLORIDE XL 5 MG TABCR PO SCH (09:06)
[2023-02-16] MEDS: ISOSORBIDE MONO EXTENDED REL 60 MG TABCR PO SCH (09:06)
[2023-02-16] MEDS: THIAMINE HCL 100 MG TAB PO SCH (09:09)
[2023-02-16] MEDS ORDERED: POTASSIUM PHOS 3 MMOL/1 ML INFUSION IV STA (09:24)
[2023-02-16] MEDS ORDERED: POTASSIUM PHOSPHATE 15 MMOL in SODIUM CHLORIDE 0.9% 250 ML IV ONE (09:45)
[2023-02-16] MEDS: MAGNESIUM SULFATE / D5W 1 GM/100 ML BAG IV SCH ×2 (10:01→12:03)
[2023-02-16] MEDS: POTASSIUM CHLORIDE CRTAB 20 MEQ TABCR PO SCH ×2 (10:01→13:01)
--- NOTE | 2023-02-16 10:08 | Communication Note ---
Date of Service: February 16, 2023 Patient offers no history today secondary to dementia. spoke with nursing and there have been no signs of active GI bleeding. biggest issues related to active pneumonia. hgb improved from 8.7 to 9 today. BUN normal today. continue with protonix 40mg IV BID. no plans for any endoscopic procedure at this time given pneumonia and patient without signs of active bleeding.
[2023-02-16] MEDS: CYANOCOBALAMIN (B-12) 100 MCG TABLET PO SCH (10:12)
[2023-02-16] MEDS: cefTRIAXone SODIUM 2,000 MG in DEXTROSE 5% 50 ML IV SCH (15:38)
--- NOTE | 2023-02-16 16:33 | Hospitalist Progress Note ---
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 Patient noted to be coughing with water/food intake for some time now as per . Patient is being managed for the following: Pneumonia likely CAP Parainfluenza 3 positive Sepsis POA:Admitting respiratory rate and temperature elevated, lactate WNL. Concern for aspiration:Per family member, speech consult. Aspiration precaution. 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 Admitting CXR with bilateral upper lobe opacities, less likely aspiration. Patient started on clindamycin at presentation, given bilateral upper lobe airspace opacities, will switch to Rocephin 02/15 and Doxy 02/15. Patient on room air, very hard of hearing and difficult to assess subjectively but does not appear to be in distress and was not having labored breathing Possible UGIB: Per H&P note heme positive melanotic stool noted at the ER. Baseline hemoglobin of 10-11, admitting hemoglobin of 9.8, stable around 9. GI evaluated, IV PPI, no endoscopy for now, hemoglobin daily, can resume aspirin. Elevated troponin/likely demand ischemia/history of CAD s/p stents: Troponin flat trended 20s, likely secondary to acute illness. Continue home aspirin and cardiac medications. History of HFpEF:2021 TTE with EF of 60 to 65%. BNP of 365 at presentation. No crackles or BLE edema on exam. Echo repeated, EF of 60 to 65%, no regional wall motion abnormalities, left ventricular systolic function normal. Other chronic medical conditions: Continue with/resume home meds as and when able. SSS status post PPM/history of PAF as per records, not on anticoagulation hypertension, stable hyperlipidemia on statin Rx DM 2 on oral medications, well-controlled as of recent hemoglobin A1c of 6.03 Nov 2022. Sliding scale insulin. hypothyroidism, euthyroid as of today's TSH alcohol abuse as per records, patient currently without signs of alcohol withdrawal.DT precautions, initiate SUKUMAR S if with signs of withdrawal. History dementia as per records DVT prophylaxis. SCDs Re: UGIB Full code as per , Mr. John Painter. [phone]. PT/OT, CM to assist with DC planning Admission and Anticipated Discharge Date Admission Date: February 15, 2023 Subjective Patient seen and examined at bedside as a follow-up of pneumonia likely, parainfluenza 3 positive, possible UGIB, demand ischemia. Patient was lying in bed, on room air, NAD, appears subjectively better than yesterday, on room air, per RN patient is eating okay, has not had any bowel movement. Patient is very hard of hearing, does not appear to be in distress, ROS is very difficult but denies pain or chest pain or headache or dizziness and reports improvement in cough. Physical Exam Physical Exam: GENERAL: Alert and oriented x3. NAD, on RA. Very hard of hearing. Appears ill/frail/weak HEENT: No pallor, no icterus. Pupils equal, round and reactive to light. Oral mucosa moist. NECK: No JVD, no neck masses. HEART: S1 and S2 heard. Regular rate and rhythm. No murmur, no gallop. RESPIRATORY SYSTEM: Normal AP diameter. No accessory muscle use. No wheezing, no crackles. ABDOMEN: Soft, bowel sounds present, nontender, no distention. CENTRAL NERVOUS SYSTEM: No facial droop. Speech is clear. Obeys simple commands. Moves extremities. EXTREMITIES: No edema, no erythema seen. Results & Data Results & Data Vital Signs (Past 12 Hours) Vital Signs Temp Pulse Pulse Resp BP Pulse Ox O2 Del Method 02/16/23 15:00 36.5 C 72 20 118/61 93 Room Air 02/16/23 10:47 36.6 C 77 20 133/74 93 Room Air 02/16/23 07:46 Room Air 02/16/23 07:21 36.7 C 74 18 153/67 H 92 Room Air 02/16/23 07:09 74
[2023-02-16] MEDS: ATORVASTATIN 40 MG TAB PO SCH (20:42)
[2023-02-17] MEDS ORDERED: guaiFENesin/CODEINE 100MG/10MG 5ML UDC PO STA (01:09)
[2023-02-17] MEDS: DOXYCYCLINE HYCLATE 100 MG in DEXTROSE 5% 100 ML IV SCH ×2 (03:08→16:15)
[2023-02-17] MEDS: BENZONATATE 100 MG CAPSULE PO PRN (07:32)
[2023-02-17 08:01] LABS: Hematocrit (blood only) 30.7 % (37.0-47.0); Hemoglobin 10.1 g/dl (12.0-16.0); Mean Corpuscular Hemoglobin 25.9 pg (25.0-34.0); Mean Corpuscular Hgb Conc 32.9 g/dL (32.0-36.0); Mean Corpuscular Volume 78.7 fL (80.0-100.0); Mean Platelet Volume 9.7 fL (9.4-12.4); Platelet Count 214 K/uL (130-400); RDW Coefficient of Variation 14.2 % (11.5-14.5); RDW Standard Deviation 40.8 fL (36.4-46.3); White Blood Count 6.33 K/ul (4.8-10.8)
[2023-02-17 08:16] LABS: BUN Creatinine Ratio 18.6 (10-20); Calcium 9.3 mg/dl (8.6-10.3); Est GFR (African American) 102.5 ml/min; Est GFR (Non-African American) 88.4 ml/min; Magnesium 1.6 mg/dl (1.7-2.4); Phosphorus 2.5 mg/dl (2.5-4.9); Potassium 4.6 mmol/L (3.5-5.1)
[2023-02-17] MEDS: THIAMINE HCL 100 MG TAB PO SCH (08:53)
[2023-02-17] MEDS: carvediloL 3.125 MG TAB PO SCH ×2 (08:54→21:16)
[2023-02-17] MEDS: ISOSORBIDE MONO EXTENDED REL 60 MG TABCR PO SCH (08:54)
[2023-02-17] MEDS: CYANOCOBALAMIN (B-12) 100 MCG TABLET PO SCH (08:54)
[2023-02-17] MEDS: ASPIRIN 81 MG ECTAB PO SCH (08:54)
[2023-02-17] MEDS: PANTOprazole 40 MG in SYRINGE 0 ML IV SCH (08:54)
[2023-02-17] MEDS: FOLIC ACID 1 MG TAB PO SCH (08:55)
[2023-02-17] MEDS: MULTIVITAMIN TAB PO SCH (08:55)
[2023-02-17] MEDS: OXYBUTYNIN CHLORIDE XL 5 MG TABCR PO SCH (08:55)
[2023-02-17] MEDS: INSULIN ASPART PER UNIT CHARGE SC SCH ×4 (08:57→21:16)
[2023-02-17] MEDS: guaiFENesin/DEXTROM SYRUP 200MG/20MG 10ML UDC PO PRN ×2 (10:07→18:14)
[2023-02-17] MEDS: SERTRALINE HCL 100 MG TABLET PO SCH (10:07)
--- NOTE | 2023-02-17 10:34 | Fluoroscopy Report ---
FL video swallow CLINICAL HISTORY: 67 years-old Female with r/o aspiration. Dysphagia with possible aspiration TECHNIQUE: Video fluoroscopic evaluation of swallowing was performed in the AP and lateral projection s by the speech pathology staff. The patient is fed varying consistencies of barium. FLUOROSCOPY TIME: 2.29 minutes.. 4329 images. 7.91 mGy COMPARISON STUDY: 07/10/2014. FINDINGS: There is prolonged oral phase of swallowing with all consistencies. Incomplete epiglottic i nversion noted throughout the study. No definite aspiration identified. Mild vallecular retention wit h cracker and pudding consistencies. IMPRESSION: 1. No definite aspiration identified. 2. Please see the speech pathologist report for detailed findings and recommendations. ACT 112: Negative or not required by law. Electronically signed by: Aristeo Glover M.D. 02/17/2023 10:33 AM
[2023-02-17] MEDS: cefTRIAXone SODIUM 2,000 MG in DEXTROSE 5% 50 ML IV SCH (16:15)
--- NOTE | 2023-02-17 16:26 | Hospitalist Progress Note ---
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 Patient noted to be coughing with water/food intake for some time now as per . Patient is being managed for the following: Pneumonia likely CAP Parainfluenza 3 positive Sepsis POA:Admitting respiratory rate and temperature elevated, lactate WNL. Concern for aspiration:Per family member, speech consult. Video swallow study negative for aspiration. Appreciated speech eval. 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 Admitting CXR with bilateral upper lobe opacities, less likely aspiration. Patient started on clindamycin at presentation, given bilateral upper lobe airspace opacities, will switch to Rocephin 02/15 and Doxy 02/15. Patient on room air, very hard of hearing and difficult to assess subjectively but does not appear to be in distress and was not having labored breathing Possible UGIB: Per H&P note heme positive melanotic stool noted at the ER. Baseline hemoglobin of 10-11, admitting hemoglobin of 9.8, stable able 9. GI evaluated, IV PPI, no endoscopy for now, hemoglobin daily, can resume aspirin. Elevated troponin/likely demand ischemia/history of CAD s/p stents: Troponin flat trended 20s, likely secondary to acute illness. Continue home aspirin and cardiac medications. History of HFpEF:2021 TTE with EF of 60 to 65%. BNP of 365 at presentation. No crackles or BLE edema on exam. Echo repeated, EF of 60 to 65%, no regional wall motion abnormalities, left ventricular systolic function normal. Other chronic medical conditions: Continue with/resume home meds as and when able. SSS status post PPM/history of PAF as per records, not on anticoagulation hypertension, stable hyperlipidemia on statin Rx DM 2 on oral medications, well-controlled as of recent hemoglobin A1c of 6.03 Nov 2022. Sliding scale insulin. hypothyroidism, euthyroid as of today's TSH alcohol abuse as per records, patient currently without signs of alcohol withdrawal.DT precautions, initiate SUKUMAR S if with signs of withdrawal. History dementia as per records DVT prophylaxis. SCDs Re: UGIB Full code as per , Mr. John Painter. [phone]. PT/OT, CM to assist with DC planning Admission and Anticipated Discharge Date Admission Date: February 15, 2023 Subjective Patient seen and examined at bedside as a follow-up of pneumonia likely, parainfluenza 3 positive, possible UGIB, demand ischemia. Patient was lying in bed, on room air, NAD, appears subjectively better than at presentation, on room air, per RN patient is eating okay. Patient is very hard of hearing, does not appear to be in distress, ROS is very difficult but denies pain or chest pain or headache or dizziness and reports improvement in cough. Physical Exam Physical Exam: GENERAL: Alert and oriented x3. NAD, on RA. Very hard of hearing. Appears ill/frail/weak HEENT: No pallor, no icterus. Pupils equal, round and reactive to light. Oral mucosa moist. NECK: No JVD, no neck masses. HEART: S1 and S2 heard. Regular rate and rhythm. No murmur, no gallop. RESPIRATORY SYSTEM: Normal AP diameter. No accessory muscle use. No wheezing, no crackles. ABDOMEN: Soft, bowel sounds present, nontender, no distention. CENTRAL NERVOUS SYSTEM: No facial droop. Speech is clear. Obeys simple commands. Moves extremities. EXTREMITIES: No edema, no erythema seen. Results & Data Results & Data Vital Signs (Past 12 Hours) Vital Signs Temp Pulse Pulse Resp BP Pulse Ox O2 Del Method 02/17/23 15:52 71 02/17/23 15:23 36.9 C 73 18 148/65 H 94 Room Air 02/17/23 11:50 37.0 C 72 18 130/69 92 Room Air 02/17/23 11:05 Room Air 02/17/23 07:43 36.8 C 69 16 129/41 L 92 Room Air 02/17/23 07:41 71
[2023-02-17] MEDS: MAGNESIUM SULFATE / D5W 1 GM/100 ML BAG IV SCH ×2 (17:03→18:58)
[2023-02-17] MEDS: PANTOprazole 40 MG TAB PO SCH (21:16)
[2023-02-17] MEDS: ATORVASTATIN 40 MG TAB PO SCH (21:16)
[2023-02-18] MEDS: DOXYCYCLINE HYCLATE 100 MG in DEXTROSE 5% 100 ML IV SCH (03:34)
[2023-02-18] MEDS: guaiFENesin/DEXTROM SYRUP 200MG/20MG 10ML UDC PO PRN (03:34)
[2023-02-18] MEDS: carvediloL 3.125 MG TAB PO SCH (09:37)
[2023-02-18] MEDS: OXYBUTYNIN CHLORIDE XL 5 MG TABCR PO SCH (09:37)
[2023-02-18] MEDS: FOLIC ACID 1 MG TAB PO SCH (09:37)
[2023-02-18] MEDS: CYANOCOBALAMIN (B-12) 100 MCG TABLET PO SCH (09:37)
[2023-02-18] MEDS: ISOSORBIDE MONO EXTENDED REL 60 MG TABCR PO SCH (09:37)
[2023-02-18] MEDS: THIAMINE HCL 100 MG TAB PO SCH (09:37)
[2023-02-18] MEDS: ASPIRIN 81 MG ECTAB PO SCH (09:37)
[2023-02-18] MEDS: PANTOprazole 40 MG TAB PO SCH (09:37)
[2023-02-18] MEDS: INSULIN ASPART PER UNIT CHARGE SC SCH ×2 (09:38→13:12)
[2023-02-18] MEDS: SERTRALINE HCL 100 MG TABLET PO SCH (09:38)
[2023-02-18] MEDS: MULTIVITAMIN TAB PO SCH (09:38)
--- NOTE | 2023-02-18 12:54 | Discharge Summary ---
Date of Service February 18, 2023 Admission HPI Per Admitting Provider History obtained from patient, family, and records. Limited history from patient secondary to dementia and hearing impairment. Medical history significant for chronic diastolic heart failure EF (60 to 65%, TTE 2021), CAD status post stent, SSS status post PPM, history of PAF as per records, hypertension, hyperlipidemia, DM 2 on oral medications, hypothyroidism, dementia, chronic anemia (baseline hemoglobin of 11), alcohol abuse as per records. Last confinement 2020 L1 burst fracture status post surgery and complicated UTI. Patient sleeping more than usual the last few days as per . Junky cough symptoms Not sure about sick contacts. Patient noted to be coughing with water/food intake for some time now as per . Increased shortness of breath noted at home. Patient not sure about fluid retention at home. Patient denies abdominal pain, black/bloody stools. Patient brought to the ER for evaluation. Patient given NSS, cefepime, Solu-Medrol and neb treatment at the ER. Patient without any complaints on questioning. Medical History as above EGD 2018 showed hiatal hernia and esophageal stenosis Surgical History : BTL, cholecystectomy, PPM Family History : Heart disease, anxiety/mood disorder Personal/Social history : Non-smoker, alcohol abuse as per records, retired [employer] employee Admission Exam Per Admitting Provider GENERAL: Demented, hard of hearing, no respiratory distress SKIN: Pallor, warm HEENT: Bespectacled, pale palpebral conjunctivae, no ptosis, dry buccal mucosa NECK : Supple, no tenderness CHEST : Decreased breath sounds, no tenderness HEART : RRR, no obvious murmurs ABDOMEN: Some distention, nontender RECTAL : Intact sphincter, dark stool (FOBT positive ) EXTREMITIES : No LE swelling/tenderness, no other conspicuous deformities noted NEUROLOGIC : Demented, no facial asymmetry, hard of hearing, no other gross focality Principal Diagnosis Likely community-acquired pneumonia Parainfluenza 3 positive Sepsis POA Concern for aspiration, ruled out Possible UGI bleed Discharge Exam GENERAL: Alert and oriented x3. NAD, on RA. Very hard of hearing. HEENT: No pallor, no icterus. Pupils equal, round and reactive to light. Oral mucosa moist. NECK: No JVD, no neck masses. HEART: S1 and S2 heard. Regular rate and rhythm. No murmur, no gallop. RESPIRATORY SYSTEM: Normal AP diameter. No accessory muscle use. No wheezing, no crackles. ABDOMEN: Soft, bowel sounds present, nontender, no distention. CENTRAL NERVOUS SYSTEM: No facial droop. Speech is clear. Obeys simple commands. Moves extremities. EXTREMITIES: No edema, no erythema seen. Discharge Data Allergies Allergy/AdvReac Type Severity Reaction Status Date / Time latex Allergy Intermediate HIVES Verified 02/15/23 00:50 adhesive Allergy Mild SKIN Verified 02/15/23 00:50 IRRITATION penicillin V Allergy Unknown Unknown Verified 02/15/23 00:50 aspirin AdvReac Mild STOMACH Verified 02/15/23 00:50 UPSET Consultations 02/14/23 23:47 ED Decision to Admit Stat 02/15/23 00:53 Consult Gastroenterology Routine Ordered Studies 02/15/23 00:40 CT head/brain wo con Stat 02/17/23 09:00 Fluoro video [FL video swallow] Routine Hospital Course (1) UGIB (upper gastrointestinal bleed): Plan 67-year-old lady with PMH of HFpEF [2021 TTE with EF of 60 to 65%], CAD s/p stent, SSS s/p PPM, PAF, HTN, HLD, T2DM on oral meds, hypothyroidism, dementia, chronic anemia [baseline hemoglobin of 10 to 11], alcohol abuse, L1 burst fracture status post surgery 2020 presenting with complaint of sleeping more than usual for the last few days FINANCIAL COORDINATOR, cough with yellowish sputum for 4 days FINANCIAL COORDINATOR, diarrhea for 2 days FINANCIAL COORDINATOR. Patient noted to be coughing with water/food intake for some time now as per . Patient was managed for the following: Pneumonia likely CAP Parainfluenza 3 positive Sepsis POA:Admitting respiratory rate and temperature elevated, lactate WNL. Concern for aspiration, ruled out:Per family member, speech consult. Video swallow study negative for aspiration. Appreciated speech eval. Patient presented with cough with yellow sputum for 4 days FINANCIAL COORDINATOR. Admitting CXR with bilateral upper lobe opacities, less likely aspiration. Patient started on clindamycin at presentation, given bilateral upper lobe airspace opacities, will switch to Rocephin 02/15 and Doxy 02/15.---->> to p.o. antibiotic on discharge to complete the course. Patient on room air, very hard of hearing and difficult to assess subjectively but does not appear to be in distress and was not having labored breathing. Patient reports her cough getting better. Possible UGIB: Per H&P note heme positive melanotic stool noted at the ER. Baseline hemoglobin of 10-11, admitting hemoglobin of 9.8, stable above 9. GI evaluated, twice daily PPI, no endoscopy for now, hemoglobin daily, continue with aspirin. Follow-up with GI as an outpatient. Elevated troponin/likely demand ischemia/history of CAD s/p stents: Troponin flat trended 20s, likely secondary to acute illness. Continue home aspirin and cardiac medications. History of HFpEF:2021 TTE with EF of 60 to 65%. BNP of 365 at presentation. No crackles or BLE edema on exam. Echo repeated, EF of 60 to 65%, no regional wall motion abnormalities, left ventricular systolic function normal. Other chronic medical conditions: Continue with/resume home meds as and when able. SSS status post PPM/history of PAF as per records, not on anticoagulation hypertension, stable hyperlipidemia on statin Rx DM 2 on oral medications, well-controlled as of recent hemoglobin A1c of 6.03 Nov 2022. Sliding scale insulin. hypothyroidism, euthyroid as of today's TSH alcohol abuse as per records, patient currently without signs of alcohol withdrawal.DT precautions, initiate SUKUMAR S if with signs of withdrawal. History dementia as per records DVT prophylaxis. SCDs Re: UGIB Full code as per , Mr. John Painter. [phone]. PT/OT, CM to assist with DC planning Patient being discharged to home with close family support from patient's [discussed with patient's that she needs 24/7 care which he was agreeable to provide himself] and home health with following instruction at the point of discharge: Follow-up with your primary care physician within a week time and likely you will need labs CBC/CMP/magnesium/phosphorus. For your pneumonia, you will be discharged on antibiotic, complete the course as prescribed. Probiotics will be added. For concern of UGI bleed, you will be on pantoprazole twice a day for a month, then can take daily. Follow-up with GI doctor in 1 to 2 months time. Take your medications as prescribed. Please make sure that you are able to get your medications today by calling your pharmacy before you leave the hospital so that your treatment continuity is not broken. Home Health Attestation I certify that this patient is under my care and that I, or a physicians assistant superintendent working with me, had a face to-face encounter that meets the home health [id number] encounter requirements with this patient. The encounter with the patient was in whole, or in part, for the following medical condition, which is the primary reason for home health care (list medical condition): I certify that, based on my findings, the following services are medically necessary home health services: My clinical findings support the need for the above services because: Further, I certify that my clinical findings support that this patient is homebound (i.e. absences from home require considerable and taxing effort and are for medical reasons or synagogue services or infrequently or of short duration when for other reasons) because: Certification for Home Health Services: Based on the above findings, I certify that this patient is confined to the home and needs intermittent mcc care, physical therapy and/or speech therapy or continues to need occupational therapy. The patient is under my care, and I have initiated the establishment of the plan of care. This patient will be followed by a physician who will periodically review the plan of care. Total Time Total Time Spent Total Time Spent (In Minutes): 45 Discharge Plan Discharge Items Patient Disposition: Home - Home Health Services Reason For Visit: ANEMIA, GI BLEED, SEPSIS Discharge Diagnosis: Likely community-acquired pneumonia Parainfluenza 3 positive Sepsis POA Concern for aspiration, ruled out Possible UGI bleed Activity: As commented below Activity Comment: Incorporate fall precaution and safety at home. Non-emergency contact: Primary Care Provider Call non-emergency contact if: you have any medication questions, your symptoms worsen and your temperature is above 101 Follow-up/Referrals: Luzma Yu MD [Primary Care Provider] - (Date & Time 02/23/2023 11:00 AM Provider Luzma Yu MD [facility] ) Diet: Carb Consistent or DM2 Diet Texture: Dental soft (bite-sized) Addtl Attending Provider Instructions: Follow-up with your primary care physician within a week time and likely you will need labs CBC/CMP/magnesium/phosphorus. For your pneumonia, you will be discharged on antibiotic, complete the course as prescribed. Probiotics will be added. For concern of UGI bleed, you will be on pantoprazole twice a day for a month, then can take daily. Follow-up with GI doctor in 1 to 2 months time. Take your medications as prescribed. Please make sure that you are able to get your medications today by calling your pharmacy before you leave the hospital so that your treatment continuity is not broken. Pending Studies at Discharge: Yes Stand-Alone Forms: My [facility], Smoking Cessation Medications and DC Order Prescriptions: New carvedilol 3.125 mg Tablet 3.125 mg PO BID Qty: 60 0RF pantoprazole 40 mg Tablet,Delayed Release (Dr/Ec) 40 mg PO BID Qty: 60 0RF benzonatate 100 mg Capsule 100 mg PO TID PRN (Reason: cough) 5 Days Qty: 15 0RF Robitussin Cough-Chest Moisés DM 5-100 mg/5 mL Liquid 10 ml PO Q6H PRN (Reason: cough) Qty: 355 0RF cyanocobalamin (vitamin B-12) [Vitamin B-12] 100 mcg Tablet 100 mcg PO QAM Qty: 30 0RF folic acid 1 mg Tablet 1 mg PO QAM Qty: 30 0RF multivitamin with folic acid [Daily-Nadir (with folic acid)] 400 mcg Tablet 1 tab PO QAM Qty: 30 0RF thiamine HCl (vitamin B1) 100 mg Tablet 100 mg PO QAM Qty: 30 0RF doxycycline hyclate 100 mg tablet 100 mg PO BID 5 Days Qty: 10 0RF cefdinir 300 mg capsule 300 mg PO BID 5 Days Qty: 10 0RF Probiotic 3 billion cell capsule 3,000 mmu cells PO DAILY 7 Days Qty: 7 0RF Rx Instructions: administer with a meal Continued isosorbide mononitrate 120 mg tablet extended release 24 hr 120 mg PO DAILY Qty: 90 3RF magnesium oxide 400 mg magnesium capsule 400 mg PO DAILY Qty: 90 3RF alendronate [Fosamax] 70 mg tablet 70 mg PO WEEKLY Rx Instructions: Thu ergocalciferol (vitamin D2) [Vitamin D2] 50,000 unit Capsule 50,000 unit PO WK Rx Instructions: TAKE THIS MEDICATION EVERY THURSDAY nitroglycerin [Nitrostat] 0.4 mg Tablet, Sublingual 0.4 mg Sublingual DIRECTED PRN (Reason: Chest Pain) Rx Instructions: PLACE ONE TABLET UNDER THE TONGUE EVERY 5 MINUTES FOR UP TO 3 DOSES OVER 15 MINUTES IF NEEDED FOR CHEST PAIN metformin 500 mg Tablet 500 mg PO BID aspirin 81 mg Tablet,Delayed Release (Dr/Ec) 81 mg PO QAM sertraline 100 mg tablet 100 mg PO DAILY solifenacin [Vesicare] 5 mg tablet 5 mg PO DAILY atorvastatin 80 mg tablet 80 mg PO HS thiamine HCl (vitamin B1) 100 mg tablet 100 mg PO QAM acetaminophen [Tylenol Extra Strength] 500 mg Tablet 1,000 mg PO AMHS Discontinued carvedilol 12.5 mg tablet 12.5 mg PO BID Qty: 180 3RF Rx Instructions: must administer with a meal/food famotidine 20 mg tablet 20 mg PO DAILY Discharge Orders: Discharge Order (Routine); Ordered 02/18/23 Ordered By: Demi Matos Admission Data Admit Date/Time: 02/15/23 00:44 Attending Provider: Demi Matos Admit Provider: Ariel Velazco Primary Care Provider: Luzma Yu Other Providers: Carlos Robison ; Ariel Velazco
--- NOTE | 2023-02-23 08:53 | Coding Query ---
CODING QUERY To promote full compliance with coding requirements relating to patient care, provider participation is requested in all cases of pallet sorter uncertainty. Please assist us with the question(s) below: Coding Question(s): Sepsis POA is documented in the record and on the Discharge Summary. Please specify below, in your clinical opinion, the most likely cause of Sepsis: (x ) Sepsis most likely due to Pneumonia ( ) Sepsis most likely due to Other: Please specify ( ) Sepsis with unknown most likely cause Physician's Response(s): Thank you Hortensia Alcantar Principal Diagnosis: "that condition established after study, to be chiefly responsible for occasioning the admission of the patient to the hospital for care." Co-Existing Principal Diagnosis: "when two or more diagnoses equally meet the criteria for principal diagnosis as determined by the circumstances of admission, diagnostic work up, and/or therapy provided, and the Alphabetic Index, Tabular List, or another coding guideline does not provide sequencing direction, any one of the diagnoses may be sequenced first." "When the physician has documented what appears to be a current diagnosis in the body of the record, but has not included the diagnosis in the final diagnostic statement, the physician should be asked whether the diagnosis should be added." (Source Coding [facility] 2 QTR90. p3-4) JOSE GUADALUPE
== END 2023-02-18 15:59 | disposition home health service (06) | DRG 871 ==
LOC: ED 22:03 → SUATTDRO 02-15 00:44 → 2W 02-15 00:44

== ENCOUNTER 2023-04-28 11:24 | Inpatient (IN) ==
--- NOTE | 2023-04-28 11:48 | ED Triage Note ---
Date of Service April 28, 2023 History of Present Illness This patient was briefly evaluated while in triage. An abbreviated physical exam was performed. This patient is a 67-year-old Female who presents to the ED for evaluation of cold/flu like symptoms for 3 weeks. She has had weakness and a productive cough. She denies fevers. Physical Exam VITALS: Vitals are noted on the nurse's note and reviewed by myself. GENERAL: This is a 67-year-old female, in no acute distress, sitting upright in triage. SKIN: The skin was without rashes. HEART: Regular rate and rhythm without murmurs gallops or rubs. LUNGS: Crackles bilateral bases. NEURO: Patient was alert and oriented to person place and time. Initial orders for labs and / or imaging were placed and patient was placed in the waiting area until a bed is available. Please see further documentation for the full ED course. MDM / Impression Impression Impression: Pneumonia, Non-ST elevation DC (NSTEMI), Generalized weakness, Acute hypokalemia, Hypomagnesemia
--- NOTE | 2023-04-28 12:37 | XRay Report ---
XR chest 2V PA/lateral CLINICAL HISTORY: Cough, weakness TECHNIQUE: 2 views of the chest were obtained. Comparison: Comparison is made to chest radiograph 02/14/2023 FINDINGS: Pacemaker defibrillator is seen. The cardiomediastinal silhouette is normal. Multifocal airspace opac ities are seen. This is more pronounced than in the prior exam. No evidence of pleural effusion or pn eumothorax. IMPRESSION: Multifocal airspace opacities likely representing pneumonia, increased in conspicuity from prior exam . ACT 112: Negative or not required by law. Electronically signed by: Tao Sesay M.D. 04/28/2023 12:35 PM
[2023-04-28 13:32] LABS: Basophils # (auto) 0.05 K/uL (0.00-0.20); Basophils % (auto) 0.4 %; Eosinophils # (auto) 0.12 K/uL (0.00-0.50); Eosinophils % (auto) 1.1 %; Hematocrit (blood only) 35.2 % (37.0-47.0); Hemoglobin 11.8 g/dl (12.0-16.0); Immature Granulocytes # (auto) 0.06 K/uL (0.01-0.20); Immature Granulocytes % (auto) 0.5 %; Lymphocytes # (auto) 1.17 K/uL (1.20-3.40); Lymphocytes % (auto) 10.3 %; Mean Corpuscular Hemoglobin 27.2 pg (25.0-34.0); Mean Corpuscular Hgb Conc 33.5 g/dL (32.0-36.0); Mean Corpuscular Volume 81.1 fL (80.0-100.0); Mean Platelet Volume 10.5 fL (9.4-12.4); Monocytes # (auto) 0.51 K/uL (0.11-0.59); Monocytes % (auto) 4.5 %; Neutrophils # (auto) 9.45 K/uL (1.40-6.50); Neutrophils % (auto) 83.2 %; Platelet Count 244 K/uL (130-400); RDW Standard Deviation 44.6 fL (36.4-46.3); Red Blood Count 4.34 M/uL (4.20-5.40); White Blood Count 11.36 K/ul (4.8-10.8)
[2023-04-28 13:54] LABS: Alanine Aminotransferase 28 U/L (7-52); Albumin Globulin Ratio 1.1 (0.9-2); Albumin Level 3.9 gm/dl (3.4-5.0); Alkaline Phosphatase 151 U/L (34-104); Anion Gap 7 (3-11); Aspartate Aminotransferase 42 U/L (13-39); BUN Creatinine Ratio 18.1 (10-20); Blood Urea Nitrogen 15 mg/dl (6-23); Calcium 9.5 mg/dl (8.6-10.3); Carbon Dioxide 27 mmol/L (21-32); Chloride 102 mmol/L (98-107); Est GFR (African American) 83.4 ml/min; Est GFR (Non-African American) 71.9 ml/min; Globulin 3.5 gm/dl (2.5-4.0); Glucose 124 mg/dl (70-99(Fasting)); Magnesium 1.6 mg/dl (1.7-2.4); Potassium 3.4 mmol/L (3.5-5.1); Sodium 136 mmol/L (136-145); Total Protein 7.4 gm/dl (6.0-8.3)
[2023-04-28] MEDS ORDERED: MAGNESIUM SULFATE / D5W 1 GM/100 ML BAG IV STA (13:57)
[2023-04-28] MEDS ORDERED: cefTRIAXone SODIUM 2,000 MG/50 ML BAG IV STA (13:57)
[2023-04-28 14:20] LABS: Adenovirus PCR Not Detected (NotDetected); Bordetella parapertussis PCR Not Detected (NotDetected); Bordetella pertussis PCR Not Detected (NotDetected); Chlamydia pneumoniae PCR Not Detected (NotDetected); Coronavirus 229E PCR Not Detected (NotDetected); Coronavirus CoV-2 (COVID19)PCR Not Detected (NotDetected); Coronavirus HKU1 PCR Not Detected (NotDetected); Coronavirus NL63 PCR Not Detected (NotDetected); Coronavirus OC43PCR Not Detected (NotDetected); Human Metapneumovirus PCR Not Detected (NotDetected); Influenza A PCR Not Detected (NotDetected); Influenza B PCR Not Detected (NotDetected); Mycoplasma pneumoniae PCR Not Detected (NotDetected); Parainfluenza Virus 1 PCR Not Detected (NotDetected); Parainfluenza Virus 2 PCR Not Detected (NotDetected); Parainfluenza Virus 3 PCR Not Detected (NotDetected); Parainfluenza Virus 4 PCR Not Detected (NotDetected); Respiratory Syncytial VirusPCR Not Detected (NotDetected); Rhinovirus/Enterovirus PCR Not Detected (NotDetected)
--- NOTE | 2023-04-28 14:33 | Emergency Department Note ---
Impression & Plan Pneumonia, Non-ST elevation DC (NSTEMI), Generalized weakness, Acute hypokalemia, Hypomagnesemia ED Provider Note HISTORY OF PRESENT ILLNESS: Patient is a 67-year-old female presenting with cough and generalized weakness. provides history, given patient's dementia. Reports that for the last 3 weeks the patient has been having a persistent cough productive of a yellow-w marii sputum. Denies any hemoptysis. Reports that he has been giving her [id number] cold and flu medications and she has not been getting any better. States that the patient has had a significant decline in her ability to do basics of daily living in the last 3 weeks. Reports that she is unable to ambulate to the bathroom on her own anymore secondary to profound weakness and he has to help her ambulate and help her get on and off the toilet. Denies any fevers. Patient denies any chest pain. No reported sick contact exposures. No recent travel. Denies any DVT or PE history. ROS: as above PHYSICAL EXAM: Constitutional: Patient appears in no acute distress. HENT: Head: Normocephalic and atraumatic. Eyes: EOMI, PERRL Mouth/Throat: Mucous membranes moist. Neck: Trachea midline. Neck supple. Cardiovascular: RRR, No murmurs, rubs or gallops. Intact distal pulses. Pulmonary/Chest: No respiratory distress. Breath sounds clear and equal bilaterally. No wheezes or rales. Abdominal: Abdomen soft, no tenderness, rebound or guarding. Musculoskeletal: No edema, tenderness or deformity noted. Skin: Warm and dry. No rash, erythema, pallor or cyanosis Neurological: Alert. CN II-XII grossly intact, moving all extremities equally and fully. MDM: - Vitals signs showed tachycardia. - History obtained via patient's , given patient's dementia. Patient presents with cough and generalized weakness. states the patient has been having a cough productive of old yellow-white sputum over the last 3 weeks. Has been giving qxcx-[id number] cold and flu medications without any improvement in her symptoms. Reports that the patient has been very weak and unable to get up and go to the bathroom on her own anymore. Patient denies any chest pain. No reported fevers in the last few weeks. Denies any DVT or PE history. - Chronic conditions affecting care: atrial fibrillation; CAD (s/p PCI); CHF; DM-2; HTN; HLD; hypothyroidism - Differential diagnoses include, but are not limited to: viral syndrome; pneumonia; PE; ACS; UTI; electrolyte abnormality - Order placed for continuous cardiac monitoring. At this time, monitor showed rate of 100 bpm with normal sinus rhythm, per my interpretation. - External medical records reviewed. Discharge summary from 02/18/2023 was re viewed. She was admitted at the time for an upper GI bleed. - EKG reviewed by myself showed normal sinus rhythm. Rate 93 bpm. QTc 542. Noted to have a left bundle branch block which has been evident on previous EKGs. - Laboratory workup interpreted by myself showed leukocytosis (WBC 11.36) with left shift; hypokalemia (K 3.4); hypomagnesemia (Mg 1.6); elevated troponin (18.3) - CXR showed right-sided multifocal airspace opacities concerning for pneumonia, per my interpretation - Biofire negative - Blood cultures obtained. - Patient given 1g IV magnesium for electrolyte replacement. Given 2g IV rocephin for pneumonia. Given 10 mEq IV potassium for replacement. - Discussion was had with medical social worker about patient's case and need for admission - Hospitalist consulted for admission - Patient admitted to [facility] for further evaluation and management. ASSESSMENT AND PLAN: Diagnosis: pneumonia; generalized weakness; hypokalemia; hypomagnesemia; NSTEMI Plan: admit Past Med/Surg History Medical History Acid reflux disease with ulcer AF (paroxysmal atrial fibrillation) Alcohol abuse, unspecified Anxiety Anxiety disorder Anxiety state, unspecified Atrial fibrillation CAD (coronary artery disease) Cancer SKIN CANCER Cardiac arrest Cardiomyopathy Congestive cardiomyopathy Congestive heart failure, unspecified Cor athrscl-uns vessel Coronary artery disease Depression Depressive disorder, not elsewhere classified Diabetes mellitus, type 2 Dysphagia, oropharyngeal phase Fecal incontinence GERD (gastroesophageal reflux disease) Goiter Celia's thyroiditis HLD (hyperlipidemia) Hypertension Hypothyroidism PT DENIES. Ischemic cardiomyopathy Lumbago Lumbar compression fracture Ocular hypertension, unspecified eye Old myocardial infarct Other and unspecified hyperlipidemia Postmenopausal atrophic vaginitis Subclinical hypothyroidism Type 2 diabetes mellitus Unknown whether patient has any health problems Urinary tract infection FREQUENT Surgical History History of appendectomy History of cardiac cath 1 STENT (2016 @ [facility] [place]) History of cholecystectomy History of colonoscopy History of esophagogastroduodenoscopy (EGD) History of heart artery stent ADVISED TO BRING STENT CARD History of tonsillectomy S/P placement of cardiac pacemaker ~15-20 YEARS AGO[address] FOLLOWS WITH [address] RUBI AND LAST CHECKED 4 MONTHS AGO Family History Mother Family history of diabetes mellitus Blind Hearing loss Hypertension Allergies Asthma Sister Family history of diabetes mellitus Coronary heart disease Father No problems noted. Denies family history of No family history of adverse response to anesthesia No family history of bleeding disorder Heart disease Cancer Stroke Social History Smoking Status: Never smoker Second Hand Exposure: No; Do You Dip or Chew Tobacco: No; Hx Alcohol Use: Yes Alcohol type: beer and hard liquor Alcohol Intake Frequency: 2-3 x/Week Hx Substance Use: No Preferred Language: Albanian Communication Ability: Effective Competitive Intelligence Analyst Required: No Beliefs That Will Affect Care: None marital status: Current Living Situation: Spouse How many Children do You have: 1 Feels Safe at Home: Yes Assistive Devices: Raised Toilet Seat and Walker Allergies Allergies Allergy/AdvReac Type Severity Reaction Status Date / Time latex Allergy Intermediate HIVES Verified 03/02/23 14:49 adhesive Allergy Mild SKIN Verified 03/02/23 14:49 IRRITATION penicillin V Allergy Unknown Unknown Verified 03/02/23 14:49 aspirin AdvReac Mild STOMACH Verified 03/02/23 14:49 UPSET Home Meds Home Medications Medication Instructions Recorded Confirmed ergocalciferol (vitamin D2) 1,250 50,000 unit PO WK 06/16/18 03/02/23 mcg (50,000 unit) capsule (Vitamin D2) nitroglycerin 0.4 mg sublingual 0.4 mg sublingual DIRECTED PRN 06/16/18 04/28/23 tablet (Nitrostat) Chest Pain metformin 500 mg tablet 500 mg PO BID 06/17/18 03/02/23 aspirin 81 mg tablet,delayed 81 mg PO QAM 11/30/18 04/28/23 release alendronate 70 mg tablet (Fosamax) 70 mg PO WEEKLY 03/28/19 03/02/23 atorvastatin 80 mg tablet 80 mg PO HS 03/12/21 04/28/23 sertraline 100 mg tablet 100 mg PO DAILY 03/12/21 03/02/23 solifenacin 5 mg tablet (Vesicare) 5 mg PO DAILY 03/12/21 04/28/23 acetaminophen 500 mg tablet 1,000 mg PO AMHS 02/15/23 03/02/23 (Tylenol Extra Strength) donepezil 5 mg tablet 5 mg PO QAM 04/28/23 04/28/23 magnesium oxide 400 mg PO QAM 04/28/23 04/28/23 Previous Rx's Medication Instructions Recorded isosorbide mononitrate 120 mg 120 mg PO DAILY #90 tabs 04/17/22 tablet,extended release 24 hr carvedilol 3.125 mg tablet 3.125 mg PO BID #60 tabs 02/18/23 dextromethorphan-guaifenesin 5 10 ml PO Q6H PRN cough #355 mL 02/18/23 mg-100 mg/5 mL oral liquid (Robitussin Cough-Chest Congestion DM) folic acid 1 mg tablet 1 mg PO QAM #30 tabs 02/18/23 multivitamin with folic acid 400 1 tab PO QAM #30 tabs 02/18/23 mcg tablet (Daily-Nadir (with folic acid)) pantoprazole 40 mg tablet,delayed 40 mg PO BID #60 tabs 02/18/23 release thiamine HCl (vitamin B1) 100 mg 100 mg PO QAM #30 tabs 02/18/23 tablet Results & Data (ED) Vital Signs Vital Signs - 24 hr 04/28/23 11:46 Temperature 36.8 C Temperature Source Temporal Artery Scan Pulse Rate 99 H Respiratory Rate 20 Respiratory Effort / Characteristics Non-Labored Spontaneous Respiratory Depth Normal Respiratory Pattern Regular Blood Pressure 114/66 Blood Pressure Mean 82 Pulse Oximetry 93 Oxygen Delivery Method Room Air Sepsis Recent Fever Within 48 Hours No Sepsis New/Unexplained Change in Mental Status No Sepsis Action Taken by Nursing No Action Required Laboratory Data 04/28/23 13:07 04/28/23 13:07 Lab Results 04/28/23 04/28/23 04/28/23 Range/Units 13:07 13:07 13:07 WBC 11.36 H (4.8-10.8) K/ul RBC 4.34 (4.20-5.40) M/uL Hgb 11.8 L (12.0-16.0) g/dl Hct 35.2 L (37.0-47.0) % MCV 81.1 (80.0-100.0) fL MCH 27.2 (25.0-34.0) pg MCHC 33.5 (32.0-36.0) g/dL RDW Std Deviation 44.6 (36.4-46.3) fL RDW Coeff of Chucky 15.0 H (11.5-14.5) % Plt Count 244 (130-400) K/uL MPV 10.5 (9.4-12.4) fL Immature Gran % (Auto) 0.5 % Neut % (Auto) 83.2 % Lymph % (Auto) 10.3 % [place] % (Auto) 4.5 % Eos % (Auto) 1.1 % Baso % (Auto) 0.4 % Neut # (Auto) 9.45 H (1.40-6.50) K/uL Lymph # (Auto) 1.17 L (1.20-3.40) K/uL [place] # (Auto) 0.51 (0.11-0.59) K/uL Eos # (Auto) 0.12 (0.00-0.50) K/uL Baso # (Auto) 0.05 (0.00-0.20) K/uL Immature Gran # (Auto) 0.06 (0.01-0.20) K/uL Sodium 136 (136-145) mmol/L Potassium 3.4 L (3.5-5.1) mmol/L Chloride 102 (98-107) mmol/L Carbon Dioxide 27 (21-32) mmol/L Anion Gap 7 (3-11) BUN 15 (6-23) mg/dl Creatinine 0.83 (0.6-1.2) mg/dl Est Cr Clr Drug Dosing Not Reportable Est GFR ( Amer) 83.4 ml/min Est GFR (Non-Af Amer) 71.9 ml/min BUN/Creatinine Ratio 18.1 (10-20) Glucose 124 H (70-99(Fasting)) mg/dl Calcium 9.5 (8.6-10.3) mg/dl Magnesium 1.6 L (1.7-2.4) mg/dl Total Bilirubin 1.0 (0.2-1.0) mg/dl AST 42 H (13-39) U/L ALT 28 (7-52) U/L Alkaline Phosphatase 151 H (34-104) U/L Troponin I High Sens 18.3 H (0-14) pg/ml Total Protein 7.4 (6.0-8.3) gm/dl Albumin 3.9 (3.4-5.0) gm/dl Globulin 3.5 (2.5-4.0) gm/dl Albumin/Globulin Ratio 1.1 (0.9-2) Procalcitonin (0-0.5) ng/ml Adenovirus (PCR) (NotDetected) B. pertussis DNA (PCR) (NotDetected) B.parapertussis DNA PCR (NotDetected) C. pneumoniae DNA (PCR) (NotDetected) Coronavirus OC43 (PCR) (NotDetected) Coronavirus HKU1 (PCR) (NotDetected) Coronavirus 229E (PCR) (NotDetected) SARS-CoV-2 (PCR) (NotDetected) Coronavirus NL63 (PCR) (NotDetected) Human Metapneumovir PCR (NotDetected) Influenza Type A (PCR) (NotDetected) Influenza Type B (PCR) (NotDetected) M. pneumoniae (PCR) (NotDetected) Parainfluenza 1 (PCR) (NotDetected) Parainfluenza 2 (PCR) (NotDetected) Parainfluenza 3 (PCR) (NotDetected) Parainfluenza 4 (PCR) (NotDetected) RSV (PCR) (NotDetected) Entero/Rhino (PCR) (NotDetected) 04/28/23 04/28/23 Range/Units 13:13 13:18 WBC (4.8-10.8) K/ul RBC (4.20-5.40) M/uL Hgb (12.0-16.0) g/dl Hct (37.0-47.0) % MCV (80.0-100.0) fL MCH (25.0-34.0) pg MCHC (32.0-36.0) g/dL RDW Std Deviation (36.4-46.3) fL RDW Coeff of Chucky (11.5-14.5) % Plt Count (130-400) K/uL MPV (9.4-12.4) fL Immature Gran % (Auto) % Neut % (Auto) % Lymph % (Auto) % [place] % (Auto) % Eos % (Auto) % Baso % (Auto) % Neut # (Auto) (1.40-6.50) K/uL Lymph # (Auto) (1.20-3.40) K/uL [place] # (Auto) (0.11-0.59) K/uL Eos # (Auto) (0.00-0.50) K/uL Baso # (Auto) (0.00-0.20) K/uL Immature Gran # (Auto) (0.01-0.20) K/uL Sodium (136-145) mmol/L Potassium (3.5-5.1) mmol/L Chloride (98-107) mmol/L Carbon Dioxide (21-32) mmol/L Anion Gap (3-11) BUN (6-23) mg/dl Creatinine (0.6-1.2) mg/dl Est Cr Clr Drug Dosing Est GFR ( Amer) ml/min Est GFR (Non-Af Amer) ml/min BUN/Creatinine Ratio (10-20) Glucose (70-99(Fasting)) mg/dl Calcium (8.6-10.3) mg/dl Magnesium (1.7-2.4) mg/dl Total Bilirubin (0.2-1.0) mg/dl AST (13-39) U/L ALT (7-52) U/L Alkaline Phosphatase (34-104) U/L Troponin I High Sens (0-14) pg/ml Total Protein (6.0-8.3) gm/dl Albumin (3.4-5.0) gm/dl Globulin (2.5-4.0) gm/dl Albumin/Globulin Ratio (0.9-2) Procalcitonin 0.20 (0-0.5) ng/ml Adenovirus (PCR) Not Detected (NotDetected) B. pertussis DNA (PCR) Not Detected (NotDetected) B.parapertussis DNA PCR Not Detected (NotDetected) C. pneumoniae DNA (PCR) Not Detected (NotDetected) Coronavirus OC43 (PCR) Not Detected (NotDetected) Coronavirus HKU1 (PCR) Not Detected (NotDetected) Coronavirus 229E (PCR) Not Detected (NotDetected) SARS-CoV-2 (PCR) Not Detected (NotDetected) Coronavirus NL63 (PCR) Not Detected (NotDetected) Human Metapneumovir PCR Not Detected (NotDetected) Influenza Type A (PCR) Not Detected (NotDetected) Influenza Type B (PCR) Not Detected (NotDetected) M. pneumoniae (PCR) Not Detected (NotDetected) Parainfluenza 1 (PCR) Not Detected (NotDetected) Parainfluenza 2 (PCR) Not Detected (NotDetected) Parainfluenza 3 (PCR) Not Detected (NotDetected) Parainfluenza 4 (PCR) Not Detected (NotDetected) RSV (PCR) Not Detected (NotDetected) Entero/Rhino (PCR) Not Detected (NotDetected) Imaging Data Radiologist's Impression: Chest X-Ray 04/28/23 11:49 XR chest 2V PA/lateral CLINICAL HISTORY: Cough, weakness TECHNIQUE: 2 views of the chest were obtained. Comparison: Comparison is made to chest radiograph 02/14/2023 FINDINGS: Pacemaker defibrillator is seen. The cardiomediastinal silhouette is normal. Multifocal airspace opacities are seen. This is more pronounced than in the prior exam. No evidence of pleural effusion or pneumothorax. IMPRESSION: Multifocal airspace opacities likely representing pneumonia, increased in conspicuity from prior exam. ACT 112: Negative or not required by law. Electronically signed by: Tao Sesay M.D. 04/28/2023 12:35 PM Discharge Plan Visit Data Chief Complaint: Flu Like Symptoms Stated Complaint: COLD/FLU,GETTING WORSE ED Provider: Antonella Hicks Discharge Problem: Pneumonia, Non-ST elevation DC (NSTEMI), Generalized weakness, Acute hypokalemia, Hypomagnesemia Forms Stand Alone Forms: [email or web address] Prescriptions Prescriptions: No Action isosorbide mononitrate 120 mg tablet extended release 24 hr 120 mg PO DAILY Qty: 90 3RF alendronate [Fosamax] 70 mg tablet 70 mg PO WEEKLY Rx Instructions: Mon ergocalciferol (vitamin D2) [Vitamin D2] 50,000 unit Capsule 50,000 unit PO WK Rx Instructions: TAKE THIS MEDICATION EVERY THURSDAY nitroglycerin [Nitrostat] 0.4 mg Tablet, Sublingual 0.4 mg Sublingual DIRECTED PRN (Reason: Chest Pain) Rx Instructions: PLACE ONE TABLET UNDER THE TONGUE EVERY 5 MINUTES FOR UP TO 3 DOSES OVER 15 MINUTES IF NEEDED FOR CHEST PAIN metformin 500 mg Tablet 500 mg PO BID aspirin 81 mg Tablet,Delayed Release (Dr/Ec) 81 mg PO QAM sertraline 100 mg tablet 100 mg PO DAILY solifenacin [Vesicare] 5 mg tablet 5 mg PO DAILY atorvastatin 80 mg tablet 80 mg PO HS acetaminophen [Tylenol Extra Strength] 500 mg Tablet 1,000 mg PO AMHS carvedilol 3.125 mg Tablet 3.125 mg PO BID Qty: 60 0RF pantoprazole 40 mg Tablet,Delayed Release (Dr/Ec) 40 mg PO BID Qty: 60 0RF Robitussin Cough-Chest Moisés DM 5-100 mg/5 mL Liquid 10 ml PO Q6H PRN (Reason: cough) Qty: 355 0RF folic acid 1 mg Tablet 1 mg PO QAM Qty: 30 0RF multivitamin with folic acid [Daily-Nadir (with folic acid)] 400 mcg Tablet 1 tab PO QAM Qty: 30 0RF thiamine HCl (vitamin B1) 100 mg Tablet 100 mg PO QAM Qty: 30 0RF donepezil 5 mg tablet 5 mg PO QAM Rx Instructions: take with largest meal of day magnesium oxide 400 mg magnesium capsule 400 mg PO QAM Referrals Referrals: Luzma Yu MD [Primary Care Provider] -
[2023-04-28] MEDS ORDERED: POTASSIUM CHLORIDE / WTR 10 MEQ/100 ML PLCT IV ONE (15:29)
[2023-04-28] MEDS ORDERED: POLYETHYLENE (MIRALAX) 17 GM PACK PO PRN (15:31)
[2023-04-28] MEDS ORDERED: MAGNESIUM HYDROXIDE SUSP 30 ML UDC PO PRN (15:31)
[2023-04-28] MEDS ORDERED: ALUMINUM/MAGNESIUM SUSP 30 ML UDC PO PRN (15:31)
--- NOTE | 2023-04-28 15:42 | History & Physical Report ---
Date of Service April 28, 2023 Assessment & Plan (1) Pneumonia: (2) Generalized weakness: (3) Acute hypokalemia: (4) Hypomagnesemia: (5) Dyslipidemia: (6) AF (paroxysmal atrial fibrillation): (7) Depression: (8) Diabetes mellitus, type 2: Plan Ms. Painter is a 67 year old female that presents to the ED with worsening cough over the past few weeks. While patient was able to participate in ROS; provided most of the reliable information due to her progressive dementia. Over the last week she has been conservatively treated at home with Tylenol cold and fume for the past week. Notably reports productive white sputum without any green or collins colors noted. Overall progressive weakness. All of patient's care needs are anticipated and met by her . CXR revealed R sided opacities suggestive of a developing PNA. 2G Ceftriaxone administered in ED. Mild leukocytosis 11.36, hypokalemic 3.4, hypomagnesemia 1.6, and slightly elevated Troponin 18.3; suspect related to ischemic demand rather than ACS. Prolonged QtC 542. Biofire negative. Blood cultures, Procalcitonin and Lactate pending in ED. At baseline, patient uses a wheelchair walker; patient indicates her weakness has worsened along with behavioral disturbance and wandering at nighttime. PMH includes: DM2, HLD, Depression, CAD, Atrial Fibrillation, anxiety, OA, depression. Pt denies pain, fever, chills, visual or auditory changes, SOB, chest pain, MCCAIN, dizziness, abdominal pain or tenderness, recent falls or trauma. As indicated while patient is able to follow commands and participate in conversation unsure of the validity of her responses. For now provide treatment for evolving pneumonia, hypokalemia, hypomagnesemia and overall progressive weakness secondary to progressive moderate to severe dementia with behavioral disturbance. Lengthy discussion held regarding increased care needs at home and caregiver burnout. No additional current help at the house. Patient has been receptive for PT OT speech evals with temporary placement options considered. Confirmed patient is currently a full code; this conversation could benefit from further discussion throughout inpatient hospitalization. Pneumonia: Acute uncontrolled Productive white sputum Chest x-ray right-sided opacity suggestive of PNA Mild leukocytosis 11.36 Bio fire negative Blood cultures, procalcitonin, lactate pending Troponin 18.3; trend x1; suspect ischemic demand rather than ACS Received 2 g ceftriaxone in ED; Continue daily and add Doxycycline; adjust based on culture results QTc 542; avoid prolonging agents Recheck CXR in 48 hours Ordered Mucinex and sputum culture Senile degeneration of the brain: Generalized weakness: Suspect related to pneumonia and poor appetite, along with progressive dementia Discussed caregiver burnout Takes donepezil; hold due to prolonged QtC PT/OT/ST consults; may benefit from continued goals of care conversation including CODE STATUS and temporary placement. FAST scale: All of 6; indicating moderately severe dementia; borderline hospice qualification Patient with incontinent urine and bowels; wears a brief. Acute hypokalemia: Acute uncontrolled Serum potassium 3.4; replace with 10 mEq and recheck in a.m. No ectopy on ECG Hypomagnesemia: Acute uncontrolled Serum mag 1.6; replace with 1 g mag in ED; repeat check in a.m. Hyperlipidemia: Chronic stable Takes Atorvastatin; continue Depression: Chronic stable Takes sertraline; hold for now due to prolonged QtC Disposition: PCP: Dr. Yu CODE STATUS: Full code VTE prophylaxis: Lovenox SQ I spent a total of 87 minutes coordinating, documenting, and providing care for this patient excluding time spent in the performance of separately billed services. All of the aforementioned completed while collaborating with the assigned attending physician for a full treatment plan. Please see their addendum for further details. History of Present Illness Chief Complaint: cough/pneumonia Primary Care Provider: Luzma Yu MD Ms. Painter is a 67 year old female that presents to the ED with worsening cough over the past few weeks. While patient was able to participate in ROS; provided most of the reliable information due to her progressive dementia. Over the last week she has been conservatively treated at home with Tylenol cold and fume for the past week. Notably reports productive white sputum without any green or collins colors noted. Overall progressive weakness. All of patient's care needs are anticipated and met by her . CXR revealed R sided opacities suggestive of a developing PNA. 2G Ceftriaxone administered in ED. Mild leukocytosis 11.36, hypokalemic 3.4, hypomagnesemia 1.6, and slightly elevated Troponin 18.3; suspect related to ischemic demand rather than ACS. Prolonged QtC 542. Biofire negative. Blood cultures, Procalcitonin and Lactate pending in ED. At baseline, patient uses a wheelchair walker; patient indicates her weakness has worsened along with behavioral disturbance and wan dering at nighttime. PMH includes: DM2, HLD, Depression, CAD, Atrial Fibrillation, anxiety, OA, depression. Pt denies pain, fever, chills, visual or auditory changes, SOB, chest pain, MCCAIN, dizziness, abdominal pain or tenderness, recent falls or trauma. As indicated while patient is able to follow commands and participate in conversation unsure of the validity of her responses. For now provide treatment for evolving pneumonia, hypokalemia, hypomagnesemia and overall progressive weakness secondary to progressive moderate to severe dementia with behavioral disturbance. Lengthy discussion held regarding increased care needs at home and caregiver burnout. No additional current help at the house. Patient has been receptive for PT OT speech evals with temporary placement options considered. Confirmed patient is currently a full code; this conversation could benefit from further discussion throughout inpatient hospitalization. Patient will be admitted for further evaluation and management. Please see A/P for further details. Allergies Allergy/AdvReac Type Severity Reaction Status Date / Time latex Allergy Intermediate HIVES Verified 04/28/23 16:25 adhesive Allergy Mild SKIN Verified 04/28/23 16:25 IRRITATION penicillin V Allergy Unknown Unknown Verified 04/28/23 16:25 aspirin AdvReac Mild STOMACH Verified 04/28/23 16:25 UPSET Home Medications Medication Instructions Recorded Confirmed Type nitroglycerin 0.4 mg sublingual 0.4 mg sublingual DIRECTED PRN 06/16/18 04/28/23 History tablet (Nitrostat) Chest Pain atorvastatin 80 mg tablet 80 mg PO HS 03/12/21 04/28/23 History solifenacin 5 mg tablet (Vesicare) 5 mg PO QAM 03/12/21 04/28/23 History acetaminophen 500 mg tablet 1,000 mg PO AMHS 02/15/23 04/28/23 History (Tylenol Extra Strength) thiamine HCl (vitamin B1) 100 mg 100 mg PO QAM #30 tabs 02/18/23 04/28/23 Rx tablet acetaminophen 500 mg tablet 1,000 mg PO DAILY PRN Fever Or Pain 04/28/23 04/28/23 History (Acetaminophen Extra Strength) aspirin 81 mg tablet,delayed 81 mg PO QAM 04/28/23 04/28/23 History release donepezil 5 mg tablet 5 mg PO QAM 04/28/23 04/28/23 History isosorbide mononitrate 120 mg 120 mg PO QAM 04/28/23 04/28/23 History tablet,extended release 24 hr magnesium oxide 400 mg PO QAM 04/28/23 04/28/23 History sertraline 50 mg tablet 100 mg PO BID 04/28/23 04/28/23 History Past Med/Surg History Medical History Acid reflux disease with ulcer AF (paroxysmal atrial fibrillation) Alcohol abuse, unspecified Anxiety Anxiety disorder Anxiety state, unspecified Atrial fibrillation CAD (coronary artery disease) Cancer SKIN CANCER Cardiac arrest Cardiomyopathy Congestive cardiomyopathy Congestive heart failure, unspecified Cor athrscl-uns vessel Coronary artery disease Depression Depressive disorder, not elsewhere classified Diabetes mellitus, type 2 Dysphagia, oropharyngeal phase Fecal incontinence GERD (gastroesophageal reflux disease) Goiter Celia's thyroiditis HLD (hyperlipidemia) Hypertension Hypothyroidism PT DENIES. Ischemic cardiomyopathy Lumbago Lumbar compression fracture Ocular hypertension, unspecified eye Old myocardial infarct Other and unspecified hyperlipidemia Postmenopausal atrophic vaginitis Subclinical hypothyroidism Type 2 diabetes mellitus Unknown whether patient has any health problems Urinary tract infection FREQUENT Surgical History History of appendectomy History of cardiac cath 1 STENT (2016 @ [facility]) History of cholecystectomy History of colonoscopy History of esophagogastroduodenoscopy (EGD) History of heart artery stent ADVISED TO BRING STENT CARD History of tonsillectomy S/P placement of cardiac pacemaker ~15-20 YEARS AGO. FOLLOWS WITH DR RUBI AND LAST CHECKED 4 MONTHS AGO Family History Mother Family history of diabetes mellitus Blind Hearing loss Hypertension Allergies Asthma Sister Family history of diabetes mellitus Coronary heart disease Father No problems noted. Denies family history of No family history of adverse response to anesthesia No family history of bleeding disorder Heart disease Cancer Stroke Social History Smoking Status: Never smoker Second Hand Exposure: No; Do You Dip or Chew Tobacco: No; Hx Alcohol Use: Yes Alcohol type: beer and hard liquor Alcohol Intake Frequency: 2-3 x/Week Hx Substance Use: No Preferred Language: [place]guill[place] Communication Ability: Effective Stock Controller Required: No Beliefs That Will Affect Care: None marital status: Current Living Situation: Spouse How many Children do You have: 1 Feels Safe at Home: Yes Assistive Devices: Raised Toilet Seat and Walker Review of Systems Review of Systems: Neuro: (-) Falls, trauma, slurred speech HEENT: (-) MCCAIN, dizziness, dysphagia, visual or auditory changes CV: (-) CP, palpitations, swelling Resp: (-) SOB GI: (-) appetite changes, N/V/D, bowel changes : (-) urinary changes Skin: (-) rashes Psych: (-) anxiety, depression Physical Exam Physical Exam: Neuro: AAOx3; able to participate in ROS, PERRLA, no aphagia, memory changes, CNII-XII grossly intact HEENT: head normocephalic, moist mucus membranes CV: S1/S2, (-) M/G/R, (-) edema, cap refill < 3 seconds Resp: Lungs CTA in all castro. On RA GI: Abdomen S/NT/ND, Ax4 bowel sounds, (-) CVA tenderness Musculoskeletal: 5/5 B/L UE strength, 5/5 B/L LE strength. No gait disturbance Skin: (-) rashes , (-) erythema. Psych: euthymic mood Results & Data Results & Data Vital Signs (Past 12 Hours) Vital Signs Temp Pulse Resp BP Pulse Ox O2 Del Method 04/28/23 11:46 36.8 C 99 H 20 114/66 93 Room Air Laboratory Results Short CBC 04/28/23 Range/Units 13:07 WBC 11.36 H (4.8-10.8) K/ul Hgb 11.8 L (12.0-16.0) g/dl Hct 35.2 L (37.0-47.0) % Plt Count 244 (130-400) K/uL BMP 04/28/23 13:07 Sodium 136 Potassium 3.4 L Chloride 102 Carbon Dioxide 27 BUN 15 Creatinine 0.83 Glucose 124 H Calcium 9.5 Liver Function 04/28/23 Range/Units 13:07 Total Bilirubin 1.0 (0.2-1.0) mg/dl AST 42 H (13-39) U/L ALT 28 (7-52) U/L Alkaline Phosphatase 151 H (34-104) U/L Albumin 3.9 (3.4-5.0) gm/dl Diagnostic Findings Chest X-Ray 04/28/23 11:49 XR chest 2V PA/lateral CLINICAL HISTORY: Cough, weakness TECHNIQUE: 2 views of the chest were obtained. Comparison: Comparison is made to chest radiograph 02/14/2023 FINDINGS: Pacemaker defibrillator is seen. The cardiomediastinal silhouette is normal. Multifocal airspace opacities are seen. This is more pronounced than in the pr ior exam. No evidence of pleural effusion or pneumothorax. IMPRESSION: Multifocal airspace opacities likely representing pneumonia, increased in conspicuity from prior exam. ACT 112: Negative or not required by law. Electronically signed by: Tao Sesay M.D. 04/28/2023 12:35 PM Code Status & VTE Plan Code Status Full code in the event of cardiac or respiratory arrest VTE Prophylaxis Plan VTE Prophylaxis will be ordered: Yes Supervising Physician Co-Signing Physician Notes I have seen and discussed the case with the collaborating MILLSTONE CLEANER I agree with the above H&P. I have reviewed and confirmed the patients medical history, the findings on physical examination, and the patients diagnosis and treatment plan with Arnie EMMANUEL and agree with the information documented. In short, Ms. Painter is a 67 year old woman with history of dementia, HLD who is admitted for generalized weakness iso likely pneumonia. Patient unable to provide detailed history. Configuration Consultant and , Francisco, reports notable increase in assistance, prompting 24 hour support and increased delirum in evenings. PE notable for frail woman, follows commands and answers questions, but does appear to struggle with recall. Plan to cover for CAP and obtain PT/OT evals for rehab potential. Rest of plan as above.
[2023-04-28 17:19] LABS: Phosphorus 3.2 mg/dl (2.5-4.9)
[2023-04-28 17:26] LABS: Troponin I High Sensitivity 17.4 pg/ml (0-14)
[2023-04-28] MEDS: DOXYCYCLINE HYCLATE 100 MG in DEXTROSE 5% MINI-B 100 ML IV SCH (17:28)
[2023-04-28] MEDS: Patient's HEIGHT &/or WEIGHT Needed SCH ×2 (22:23→22:32)
[2023-04-28] MEDS ORDERED: BENZONATATE 100 MG CAPSULE PO PRN (22:37)
--- NOTE | 2023-04-28 22:38 | Communication Note ---
Date of Service: April 28, 2023
[2023-04-28] MEDS: lisinopril 2.5 MG TAB PO SCH (23:14)
[2023-04-28] MEDS: guaiFENesin 600 MG TABCR PO SCH (23:14)
[2023-04-28] MEDS: ATORVASTATIN 40 MG TAB PO SCH (23:14)
[2023-04-28 23:16] LABS: Appearance Urine Clear (Clear); Bacteria Urine Automated Negative (Negative); Bilirubin Urine Negative (Negative); Blood Urine Negative (Negative); Cast Urine Automated 0 /lpf (0-5); Color Urine Yellow; Glucose Urine UA Negative (Negative); Ketones Urine Negative (Negative); Leukocyte Esterase Urine Trace (Negative); Nitrite Urine Positive (Negative); Protein Urine Trace (Negative); RBC Urine Automated 0-4 /hpf (0-4); Specific Gravity Urine 1.013 (1.000-1.030); Urobilinogen Urine Negative (Negative)
[2023-04-29] MEDS ORDERED: POTASSIUM CHLORIDE PWD 20 MEQ PACK PO STA (03:00)
[2023-04-29] MEDS ORDERED: XOPENEX/ATROVENT 1.25mg/0.5MG NEB COMBO NEB STA (03:01)
[2023-04-29] MEDS ORDERED: HYDROcodone/HOMATROPINE SYRUP 5MG/1.5MG 5ML UDP PO STA (03:01)
[2023-04-29] MEDS ORDERED: cloNIDine HCL 0.1 MG TAB PO ONE (03:10)
[2023-04-29] MEDS ORDERED: LEVALBUTEROL 1.25 MG/3 ML NEB ONE (03:15)
[2023-04-29] MEDS ORDERED: LEVALBUTEROL 1.25 MG/3 ML NEB NEB STA (03:20)
[2023-04-29] MEDS ORDERED: IPRATROPIUM BROMIDE NEB SOLN 0.02% 2.5 ML VIAL INH STA (03:20)
[2023-04-29] MEDS: MAGNESIUM SULFATE / D5W 1 GM/100 ML BAG IV SCH ×2 (03:37→05:37)
[2023-04-29] MEDS: DOXYCYCLINE HYCLATE 100 MG in DEXTROSE 5% MINI-B 100 ML IV SCH ×2 (05:02→17:59)
[2023-04-29 06:18] LABS: Albumin Globulin Ratio 1.1 (0.9-2); Albumin Level 3.5 gm/dl (3.4-5.0); BUN Creatinine Ratio 21.9 (10-20); Bilirubin,Total 0.5 mg/dl (0.2-1.0); Calcium 8.8 mg/dl (8.6-10.3); Creatinine Clr Calc Pharmacy 65.6 ml/min; Est GFR (African American) 105.5 ml/min; Globulin 3.2 gm/dl (2.5-4.0); Hematocrit (blood only) 32.4 % (37.0-47.0); Hemoglobin 10.5 g/dl (12.0-16.0); Magnesium 2.1 mg/dl (1.7-2.4); Mean Corpuscular Hemoglobin 26.9 pg (25.0-34.0); Mean Corpuscular Hgb Conc 32.4 g/dL (32.0-36.0); Mean Corpuscular Volume 83.1 fL (80.0-100.0); Mean Platelet Volume 10.2 fL (9.4-12.4); Platelet Count 185 K/uL (130-400); Potassium 3.9 mmol/L (3.5-5.1); RDW Coefficient of Variation 14.9 % (11.5-14.5); RDW Standard Deviation 45.1 fL (36.4-46.3); Total Protein 6.7 gm/dl (6.0-8.3); White Blood Count 8.57 K/ul (4.8-10.8)
--- NOTE | 2023-04-29 07:22 | XRay Report ---
XR chest 1V portable HISTORY: 67 years-old Female wheeze acute shortness of breath COMPARISON: 04/28/2023, 02/14/2023, 03/12/2022. TECHNIQUE: AP view of the chest FINDINGS: Cardiac silhouette is enlarged. Left subclavian pacer/AICD. Pulmonary vascular congestion. There is i nterstitial coarsening with mild ill-defined patchy bilateral airspace opacities, left greater than r ight. No pneumothorax or large pleural effusion. Degenerative changes of the shoulders and spine. Lum bar spinal fusion hardware with kyphoplasty changes. IMPRESSION: 1. Cardiomegaly with pulmonary vascular congestion. 2. Bilateral mixed interstitial and alveolar opacities appear generally stable compared to the study from 02/14/2023 compatible with the patient's known chronic interstitial lung disease. ACT 112: Negative or not required by law. The above report was generated using voice recognition software. It may contain grammatical, syntax o r spelling errors. Electronically signed by: Aristeo Glover M.D. 04/29/2023 7:20 AM
[2023-04-29] MEDS ORDERED: FUROSEMIDE INJ 20 MG/2 ML VIAL IV ONE (07:25)
[2023-04-29] MEDS: ENOXAPARIN INJ 40 MG/0.4 ML SYR SQ SCH (11:12)
[2023-04-29] MEDS: ISOSORBIDE MONO EXTENDED REL 60 MG TABCR PO SCH (11:12)
[2023-04-29] MEDS: guaiFENesin 600 MG TABCR PO SCH ×2 (11:12→20:29)
[2023-04-29] MEDS: ASPIRIN 81 MG ECTAB PO SCH (11:12)
--- NOTE | 2023-04-29 12:38 | Hospitalist Progress Note ---
Date of Service April 29, 2023 Assessment & Plan (1) Pneumonia: (2) Generalized weakness: (3) Acute hypokalemia: (4) Hypomagnesemia: (5) Dyslipidemia: (6) AF (paroxysmal atrial fibrillation): (7) Depression: (8) Diabetes mellitus, type 2: Plan Ms. Painter is a 67 year old female that was admitted 04/28 with worsening cough over the past few weeks. Patient was able to participate in ROS, however, provided most of the reliable information due to her prog ressive dementia. On admission, imaging concerning for R sided opacities suggestive of a developing PNA. 2G Ceftriaxone administered in ED. Mild leukocytosis 11.36, hypokalemic 3.4, hypomagnesemia 1.6, and slightly elevated Troponin 18.3; suspect related to ischemic demand rather than ACS. Prolonged QtC 542. Biofire negative. Blood cultures, Procalcitonin and Lactate pending in ED. At baseline, patient uses a wheelchair walker; patient indicates her weakness has worsened along with behavioral disturbance and wandering at nighttime. PMH includes: DM2, HLD, Depression, CAD, Atrial Fibrillation, anxiety, OA, depression. Leukocytosis improving. Pending infectious work up and PT/OT eval. #Pneumonia #Leukocytosis Acute uncontrolled Chest x-ray right-sided opacity suggestive of PNA Mild leukocytosis 11.36 Bio fire negative Blood cultures NGTD, procalcitonin, lactate WNL Troponin 18.3; trend x1; suspect ischemic demand rather than ACS Continue CTX and doxy for CAP coverage, transition to PO contingent on final infectious work up QTc 542; avoid prolonging agents Continue Mucinex with planned sputum culture if any significant expectoration #Senile degeneration of the brain: #Generalized weakness: Suspect related to pneumonia and poor appetite, along with progressive dementia Discussed caregiver burnout Takes donepezil; hold due to prolonged QtC PT/OT/ST consults; may benefit from continued goals of care conversation including CODE STATUS and temporary placement. FAST scale: All of 6; indicating moderately severe dementia; borderline hospice qualification Patient with incontinent urine and bowels; wears a brief. #Acute hypokalemia: Acute uncontrolled Improved with replacement #Hypomagnesemia: Acute uncontrolled Improved with replacement #Hyperlipidemia: Chronic stable Takes Atorvastatin; continue #Depression: Chronic stable Takes sertraline; hold for now due to prolonged QtC Disposition: PCP: Dr. Yu CODE STATUS: Full code VTE prophylaxis: Lovenox SQ Admission and Anticipated Discharge Date Admission Date: April 28, 2023 Subjective NAEO Disoriented this am, difficult to redirect initially; denies acute concerns but alert and oriented only to self Review of Systems Review of Systems: All systems reviewed & are unremarkable except as noted in Subjective Physical Exam Constitutional: WD/WN, vitals as above Respiratory: normal respiratory effort, lungs clear to auscultation Cardiovascular: RRR, no murmur, no edema Results & Data Results & Data Vital Signs (Past 12 Hours) Vital Signs Temp Pulse Resp BP Pulse Ox O2 Del Method 04/29/23 11:00 36.4 C L 89 20 134/68 95 Room Air 04/29/23 07:36 36.9 C 60 16 150/77 H 94 Room Air 04/29/23 03:19 22 92 Room Air 04/29/23 03:09 36.7 C 90 24 154/83 H 92 Room Air Laboratory Results Short CBC 04/28/23 04/29/23 Range/Units 13:07 05:28 WBC 11.36 H 8.57 (4.8-10.8) K/ul Hgb 11.8 L 10.5 L (12.0-16.0) g/dl Hct 35.2 L 32.4 L (37.0-47.0) % Plt Count 244 185 (130-400) K/uL BMP 04/28/23 04/29/23 13:07 05:28 Sodium 136 134 L Potassium 3.4 L 3.9 Chloride 102 102 Carbon Dioxide 27 24 BUN 15 14 Creatinine 0.83 0.64 Glucose 124 H 154 H Calcium 9.5 8.8 Liver Function 04/28/23 04/29/23 Range/Units 13:07 05:28 Total Bilirubin 1.0 0.5 D (0.2-1.0) mg/dl AST 42 H 35 (13-39) U/L ALT 28 23 (7-52) U/L Alkaline Phosphatase 151 H 132 H (34-104) U/L Albumin 3.9 3.5 (3.4-5.0) gm/dl Urine 04/28/23 Range/Units 22:40 Urine Color Yellow Urine Appearance Clear (Clear) Urine pH 6.0 (4.5-7.5) Ur Specific Marshall 1.013 (1.000-1.030) Urine Protein Trace H (Negative) Urine Glucose (UA) Negative (Negative) Medications Administered Home Medications Medication Instructions Recorded Confirmed Last Taken nitroglycerin 0.4 mg sublingual 0.4 mg sublingual DIRECTED PRN 06/16/18 04/28/23 Unknown tablet (Nitrostat) Chest Pain atorvastatin 80 mg tablet 80 mg PO HS 03/12/21 04/28/23 04/27/23 solifenacin 5 mg tablet (Vesicare) 5 mg PO QAM 03/12/21 04/28/23 04/28/23 acetaminophen 500 mg tablet 1,000 mg PO AMHS 02/15/23 04/28/23 04/28/23 (Tylenol Extra Strength) am thiamine HCl (vitamin B1) 100 mg 100 mg PO QAM #30 tabs 02/18/23 04/28/23 04/28/23 tablet acetaminophen 500 mg tablet 1,000 mg PO DAILY PRN Fever Or Pain 04/28/23 04/28/23 Unknown (Acetaminophen Extra Strength) aspirin 81 mg tablet,delayed 81 mg PO QAM 04/28/23 04/28/23 04/28/23 release donepezil 5 mg tablet 5 mg PO QAM 04/28/23 04/28/23 04/28/23 isosorbide mononitrate 120 mg 120 mg PO QAM 04/28/23 04/28/23 04/28/23 tablet,extended release 24 hr magnesium oxide 400 mg PO QAM 04/28/23 04/28/23 04/28/23 sertraline 50 mg tablet 100 mg PO BID 04/28/23 04/28/23 04/28/23 am Active Medications Generic Name Dose Route Start Last Admin Trade Name Freq PRN Reason Stop Dose Admin Aspirin 81 mg 04/29/23 09:00 04/29/23 11:12 Aspirin 81 Mg Ectab PO 05/29/23 08:59 81 mg QAM ARTIE Administration Atorvastatin Calcium 80 mg 04/28/23 21:00 04/28/23 23:14 Atorvastatin 40 Mg Tab PO 05/28/23 20:59 80 mg HS ARTIE Administration Benzonatate 100 mg 04/28/23 22:37 04/28/23 23:15 Benzonatate 100 Mg Capsule PO 05/28/23 22:36 100 mg TID PRN Administration Cough Enoxaparin Sodium 40 mg 04/29/23 09:00 04/29/23 11:12 Enoxaparin Inj 40 Mg/0.4 Ml Syr SQ 05/29/23 08:59 40 mg QAM ARTIE Administration Guaifenesin 600 mg 04/28/23 21:00 04/29/23 11:12 Guaifenesin 600 Mg Tabcr PO 05/28/23 20:59 600 mg Q12 ARTIE Administration Doxycycline Hyclate 100 mg/ 100 mls @ 50 mls/hr 04/28/23 16:00 04/29/23 08:46 Dextrose IV 05/05/23 15:59 Infused Q12H ARTIE Infusion Isosorbide Mononitrate 120 mg 04/29/23 09:00 04/29/23 11:12 Isosorbide Dundy Extended Rel 60 Mg Tabcr PO 05/29/23 08:59 120 mg QAM ARTIE Administration Lisinopril 2.5 mg 04/28/23 22:40 04/28/23 23:14 Lisinopril 2.5 Mg Tab PO 05/28/23 22:39 2.5 mg HS ARTIE Administration
[2023-04-29] MEDS: lisinopril 2.5 MG TAB PO SCH (20:29)
[2023-04-29] MEDS: ATORVASTATIN 40 MG TAB PO SCH (20:29)
[2023-04-30] MEDS: DOXYCYCLINE HYCLATE 100 MG in DEXTROSE 5% MINI-B 100 ML IV SCH ×2 (04:45→18:10)
[2023-04-30] MEDS: BENZONATATE 100 MG CAPSULE PO SCH ×4 (05:04→20:33)
[2023-04-30] MEDS: HYDROcodone/HOMATROPINE SYRUP 5MG/1.5MG 5ML UDP PO PRN ×2 (05:04→22:06)
[2023-04-30] MEDS: ALBUT/IPRATROP 3MG/0.5MG NEB 3 ML VIAL NEB PRN ×2 (05:15→22:45)
[2023-04-30 06:09] LABS: Hematocrit (blood only) 31.6 % (37.0-47.0); Hemoglobin 10.2 g/dl (12.0-16.0); Mean Corpuscular Hemoglobin 26.8 pg (25.0-34.0); Mean Corpuscular Hgb Conc 32.3 g/dL (32.0-36.0); Mean Corpuscular Volume 83.2 fL (80.0-100.0); Mean Platelet Volume 10.8 fL (9.4-12.4); Platelet Count 202 K/uL (130-400); RDW Coefficient of Variation 15.1 % (11.5-14.5); RDW Standard Deviation 45.6 fL (36.4-46.3); White Blood Count 8.21 K/ul (4.8-10.8)
[2023-04-30 06:24] LABS: BUN Creatinine Ratio 19.2 (10-20); Calcium 8.8 mg/dl (8.6-10.3); Creatinine Clr Calc Pharmacy 57.5 ml/min; Est GFR (African American) 97.4 ml/min; Magnesium 1.7 mg/dl (1.7-2.4); Phosphorus 2.7 mg/dl (2.5-4.9); Potassium 3.8 mmol/L (3.5-5.1)
[2023-04-30] MEDS: ISOSORBIDE MONO EXTENDED REL 60 MG TABCR PO SCH (10:04)
[2023-04-30] MEDS: guaiFENesin 600 MG TABCR PO SCH ×2 (10:04→20:28)
[2023-04-30] MEDS: ASPIRIN 81 MG ECTAB PO SCH (10:05)
[2023-04-30] MEDS: ENOXAPARIN INJ 40 MG/0.4 ML SYR SQ SCH (10:07)
--- NOTE | 2023-04-30 14:08 | Electrocardiogram Report ---
Test Reason : Blood Pressure : / mmHG Vent. Rate : 093 BPM Atrial Rate : 093 BPM P-R Int : 200 ms QRS Dur : 136 ms QT Int : 436 ms P-R-T Axes : 057 -54 112 degrees QTc Int : 542 ms Normal sinus rhythm Left axis deviation Left bundle branch block Abnormal ECG When compared with ECG of 14-FEB-2023 22:25, No significant change was found Confirmed by Gianni Pepper ([id number]) on 04/30/2023 2:08:16 PM Referred By: REFERRED SELF Confirmed By:Gianni Pepper
--- NOTE | 2023-04-30 15:54 | Hospitalist Progress Note ---
Date of Service April 30, 2023 Assessment & Plan (1) Pneumonia: (2) Generalized weakness: (3) Acute hypokalemia: (4) Hypomagnesemia: (5) Dyslipidemia: (6) AF (paroxysmal atrial fibrillation): (7) Depression: (8) Diabetes mellitus, type 2: Plan Ms. Painter is a 67 year old female that was admitted 04/28 with worsening cough over the past few weeks. Patient was able to participate in ROS, however, provided most of the reliable information due to her prog ressive dementia. On admission, imaging concerning for R sided opacities suggestive of a developing PNA. 2G Ceftriaxone administered in ED. Mild leukocytosis 11.36, hypokalemic 3.4, hypomagnesemia 1.6, and slightly elevated Troponin 18.3; suspect related to ischemic demand rather than ACS. Prolonged QtC 542. Biofire negative. Blood cultures, Procalcitonin and Lactate pending in ED. At baseline, patient uses a wheelchair walker; patient indicates her weakness has worsened along with behavioral disturbance and wandering at nighttime. PMH includes: DM2, HLD, Depression, CAD, Atrial Fibrillation, anxiety, OA, depression. Leukocytosis resolved.Plan for extended care approval from [facility]. #Pneumonia #Leukocytosis Acute uncontrolled Chest x-ray right-sided opacity suggestive of PNA Mild leukocytosis 11.36 Bio fire negative Blood cultures NGTD, procalcitonin, lactate WNL Troponin 18.3; trend x1; suspect ischemic demand rather than ACS Continue CTX and doxy for CAP coverage, transition to PO contingent on final infectious work up QTc 542; avoid prolonging agents Continue Mucinex with planned sputum culture if any significant expectoration #Senile degeneration of the brain: #Generalized weakness: Suspect related to pneumonia and poor appetite, along with progressive dementia Discussed caregiver burnout Takes donepezil; hold due to prolonged QtC PT/OT/ST consults; may benefit from continued goals of care conversation including CODE STATUS and temporary placement. FAST scale: All of 6; indicating moderately severe dementia; borderline hospice qualification Patient with incontinent urine and bowels; wears a brief. #Acute hypokalemia: Acute uncontrolled Improved with replacement #Hypomagnesemia: Acute uncontrolled Improved with replacement #Hyperlipidemia: Chronic stable Takes Atorvastatin; continue #Depression: Chronic stable Takes sertraline; hold for now due to prolonged QtC Disposition: PCP: Dr. Yu CODE STATUS: Full code VTE prophylaxis: Lovenox SQ Admission and Anticipated Discharge Date Admission Date: April 28, 2023 Subjective NAEO Denies any new concerns. doesn't seem to recall circumstances around admission Review of Systems Review of Systems: All systems reviewed & are unremarkable except as noted in Subjective Physical Exam Constitutional: WD/WN, vitals as above Respiratory: normal respiratory effort, lungs clear to auscultation Cardiovascular: RRR, no murmur, no edema Results & Data Results & Data Vital Signs (Past 12 Hours) Vital Signs Temp Pulse Pulse Resp BP Pulse Ox O2 Del Method 04/30/23 08:00 Room Air 04/30/23 11:11 36.8 C 81 16 142/82 H 94 Room Air 04/30/23 07:57 36.7 C 86 18 163/84 H Room Air 04/30/23 07:43 89 04/30/23 05:17 94 H 20 91 Room Air 04/30/23 04:27 36.8 C 86 18 172/79 H 93 Room Air Laboratory Results Short CBC 04/30/23 Range/Units 05:21 WBC 8.21 (4.8-10.8) K/ul Hgb 10.2 L (12.0-16.0) g/dl Hct 31.6 L (37.0-47.0) % Plt Count 202 (130-400) K/uL BMP 04/30/23 05:21 Sodium 136 Potassium 3.8 Chloride 103 Carbon Dioxide 26 BUN 14 Creatinine 0.73 Glucose 134 H Calcium 8.8 Medications Administered Home Medications Medication Instructions Recorded Confirmed Last Taken nitroglycerin 0.4 mg sublingual 0.4 mg sublingual DIRECTED PRN 06/16/18 04/28/23 Unknown tablet (Nitrostat) Chest Pain atorvastatin 80 mg tablet 80 mg PO HS 03/12/21 04/28/23 04/27/23 solifenacin 5 mg tablet (Vesicare) 5 mg PO QAM 03/12/21 04/28/23 04/28/23 acetaminophen 500 mg tablet 1,000 mg PO AMHS 02/15/23 04/28/23 04/28/23 (Tylenol Extra Strength) am thiamine HCl (vitamin B1) 100 mg 100 mg PO QAM #30 tabs 02/18/23 04/28/2323 tablet acetaminophen 500 mg tablet 1,000 mg PO DAILY PRN Fever Or Pain 04/28/23 04/28/23 Unknown (Acetaminophen Extra Strength) aspirin 81 mg tablet,delayed 81 mg PO QAM 04/28/23 04/28/23 04/28/23 release donepezil 5 mg tablet 5 mg PO QAM 04/28/23 04/28/23 04/28/23 isosorbide mononitrate 120 mg 120 mg PO QAM 04/28/23 04/28/23 04/28/23 tablet,extended release 24 hr magnesium oxide 400 mg PO QAM 04/28/23 04/28/23 04/28/23 sertraline 50 mg tablet 100 mg PO BID 04/28/23 04/28/23 04/28/23 am Active Medications Generic Name Dose Route Start Last Admin Trade Name Freq PRN Reason Stop Dose Admin Albuterol 3 ml 04/30/23 04:37 04/30/23 05:15 Albut/Ipratrop 3mg/0.5mg Neb 3 Ml Vial NEB 05/30/23 06:59 3 ml Q4R PRN Administration Shortness Of Breath Or Wheezing Protocol Aspirin 81 mg 04/29/23 09:00 04/30/23 10:05 Aspirin 81 Mg Ectab PO 05/29/23 08:59 81 mg QAM ARTIE Administration Atorvastatin Calcium 80 mg 04/28/23 21:00 04/29/23 20:29 Atorvastatin 40 Mg Tab PO 05/28/23 20:59 80 mg HS ARTIE Administration Benzonatate 100 mg 04/28/23 22:37 04/28/23 23:15 Benzonatate 100 Mg Capsule PO 05/28/23 22:36 100 mg TID PRN Administration Cough Benzonatate 100 mg 04/30/23 04:40 04/30/23 14:00 Benzonatate 100 Mg Capsule PO 05/30/23 04:39 100 mg TID ARTIE Administration Enoxaparin Sodium 40 mg 04/29/23 09:00 04/30/23 10:07 Enoxaparin Inj 40 Mg/0.4 Ml Syr SQ 05/29/23 08:59 Not Given QAM ARTIE Guaifenesin 600 mg 04/28/23 21:00 04/30/23 10:04 Guaifenesin 600 Mg Tabcr PO 05/28/23 20:59 600 mg Q12 ARTIE Administration Hydrocodone Bit/Homatropine Methylb 5 ml 04/30/23 04:38 04/30/23 05:04 Hydrocodone/Homatropine Syrup 5mg/1.5mg 5ml Udp PO 05/14/23 04:37 5 ml Q6H PRN Administration Cough Doxycycline Hyclate 100 mg/ 100 mls @ 50 mls/hr 04/28/23 16:00 04/30/23 06:45 Dextrose IV 05/05/23 15:59 Infused Q12H ARTIE Infusion Isosorbide Mononitrate 120 mg 04/29/23 09:00 04/30/23 10:04 Isosorbide [place] Extended Rel 60 Mg Tabcr PO 05/29/23 08:59 120 mg QAM ARTIE Administration Lisinopril 2.5 mg 04/28/23 22:40 04/29/23 20:29 Lisinopril 2.5 Mg Tab PO 05/28/23 22:39 2.5 mg HS ARTIE Administration
[2023-04-30] MEDS: cefTRIAXone SODIUM 2,000 MG in DEXTROSE 5 % MINI-B 50 ML IV SCH (16:53)
[2023-04-30] MEDS: lisinopril 2.5 MG TAB PO SCH (20:28)
[2023-04-30] MEDS: ATORVASTATIN 40 MG TAB PO SCH (20:28)
[2023-05-01] MEDS: DOXYCYCLINE HYCLATE 100 MG in DEXTROSE 5% MINI-B 100 ML IV SCH ×2 (04:29→17:26)
[2023-05-01 07:17] LABS: Hematocrit (blood only) 29.6 % (37.0-47.0); Hemoglobin 9.5 g/dl (12.0-16.0); Mean Corpuscular Hemoglobin 26.8 pg (25.0-34.0); Mean Corpuscular Hgb Conc 32.1 g/dL (32.0-36.0); Mean Corpuscular Volume 83.4 fL (80.0-100.0); Mean Platelet Volume 10.1 fL (9.4-12.4); Platelet Count 201 K/uL (130-400); RDW Coefficient of Variation 15.2 % (11.5-14.5); RDW Standard Deviation 46.5 fL (36.4-46.3); Red Blood Count 3.55 M/uL (4.20-5.40); White Blood Count 7.14 K/ul (4.8-10.8)
[2023-05-01 07:28] LABS: BUN Creatinine Ratio 20.9 (10-20); Calcium 8.9 mg/dl (8.6-10.3); Creatinine Clr Calc Pharmacy 62.7 ml/min; Est GFR (African American) 103.9 ml/min; Est GFR (Non-African American) 89.7 ml/min; Potassium 3.8 mmol/L (3.5-5.1)
[2023-05-01] MEDS: ASPIRIN 81 MG ECTAB PO SCH (08:48)
[2023-05-01] MEDS: ENOXAPARIN INJ 40 MG/0.4 ML SYR SQ SCH (08:49)
[2023-05-01] MEDS: guaiFENesin 600 MG TABCR PO SCH ×2 (08:49→21:54)
[2023-05-01] MEDS: BENZONATATE 100 MG CAPSULE PO SCH ×3 (08:49→20:38)
[2023-05-01] MEDS: ISOSORBIDE MONO EXTENDED REL 60 MG TABCR PO SCH (08:49)
[2023-05-01] MEDS ORDERED: guaiFENesin/DEXTROM SYRUP 200MG/20MG 10ML UDC PO STA (09:52)
[2023-05-01] MEDS: ALBUT/IPRATROP 3MG/0.5MG NEB 3 ML VIAL NEB PRN (10:18)
--- NOTE | 2023-05-01 14:33 | Hospitalist Progress Note ---
Date of Service May 01, 2023 Assessment & Plan (1) Pneumonia: (2) Generalized weakness: (3) Acute hypokalemia: (4) Hypomagnesemia: (5) Dyslipidemia: (6) AF (paroxysmal atrial fibrillation): (7) Depression: (8) Diabetes mellitus, type 2: Plan Ms. Painter is a 67 year old female that was admitted 04/28 with worsening cough over the past few weeks. Patient was able to participate in ROS, however, provided most of the reliable information due to her prog ressive dementia. On admission, imaging concerning for R sided opacities suggestive of a developing PNA. 2G Ceftriaxone administered in ED. Mild leukocytosis 11.36, hypokalemic 3.4, hypomagnesemia 1.6, and slightly elevated Troponin 18.3; suspect related to ischemic demand rather than ACS. Prolonged QtC 542. Biofire negative. Blood cultures, Procalcitonin and Lactate pending in ED. At baseline, patient uses a wheelchair walker; patient indicates her weakness has worsened along with behavioral disturbance and wandering at nighttime. PMH includes: DM2, HLD, Depression, CAD, Atrial Fibrillation, anxiety, OA, depression. Leukocytosis resolved with continued improvement.Plan for extended care approval from [facility]. #Pneumonia #Leukocytosis *improved Chest x-ray right-sided opacity suggestive of PNA Mild leukocytosis 11.36, now normal Bio fire negative; Blood cultures NGTD, procalcitonin, lactate WNL Troponin 18.3; trend x1; suspect ischemic demand rather than ACS Continue CTX and doxy for CAP coverage, transition to PO prior to discharge QTc 542; avoid prolonging agents Continue Mucinex scheduled and Robitussin dm prn #Senile degeneration of the brain: #Generalized weakness: Suspect related to pneumonia and poor appetite, along with progressive dementia Discussed caregiver burnout Takes donepezil; hold due to prolonged QtC PT/OT/ST consults; may benefit from continued goals of care conversation including CODE STATUS and temporary placement. FAST scale: All of 6; indicating moderately severe dementia; borderline hospice qualification Patient with incontinent urine and bowels; wears a brief. #Acute hypokalemia: Acute uncontrolled Improved with replacement #Hypomagnesemia: Acute uncontrolled Improved with replacement #Hyperlipidemia: Chronic stable Takes Atorvastatin; continue #Depression: Chronic stable Takes sertraline; hold for now due to prolonged QtC Disposition: PCP: Dr. Yu CODE STATUS: Full code VTE prophylaxis: Lovenox SQ Admission and Anticipated Discharge Date Admission Date: April 28, 2023 Subjective Appears well, responds to questions--occasionally anxious with various lines of questioning due to dementia, but otherwise denies any new symptoms Near aspiration event this am, patient appeared to be in coughing fit with subsequent production of a "sticker" that she picked off a piece of equipment She subsequently recovered with no changes in oxygenation Review of Systems Review of Systems: All systems reviewed & are unremarkable except as noted in Subjective Physical Exam Constitutional: WD/WN, vitals as above appears confused and easily upset with too many questions or inquiries; however, easy to calm and reorient Respiratory: normal respiratory effort, lungs clear to auscultation Cardiovascular: RRR, no murmur, no edema Results & Data Results & Data Vital Signs (Past 12 Hours) Vital Signs Temp Pulse Pulse Resp BP BP Pulse Ox 05/01/23 12:04 36.9 C 86 18 130/70 91 05/01/23 08:00 05/01/23 10:18 93 H 18 92 05/01/23 09:58 36.8 C 103 H 20 155/99 H 150/99 H 92 05/01/23 07:53 36.7 C 71 18 135/73 93 05/01/23 07:30 75 05/01/23 04:30 82 20 151/77 H O2 Del Method 05/01/23 12:04 Room Air 05/01/23 08:00 Room Air 05/01/23 10:18 Room Air 05/01/23 09:58 Room Air 05/01/23 07:53 Room Air 05/01/23 07:30 05/01/23 04:30 Laboratory Results Short CBC 05/01/23 Range/Units 05:39 WBC 7.14 (4.8-10.8) K/ul Hgb 9.5 L (12.0-16.0) g/dl Hct 29.6 L (37.0-47.0) % Plt Count 201 (130-400) K/uL BMP 05/01/23 05:39 Sodium 137 Potassium 3.8 Chloride 103 Carbon Dioxide 27 BUN 14 Creatinine 0.67 Glucose 134 H Calcium 8.9 Medications Administered Home Medications Medication Instructions Recorded Confirmed Last Taken nitroglycerin 0.4 mg sublingual 0.4 mg sublingual DIRECTED PRN 06/16/18 04/28/23 Unknown tablet (Nitrostat) Chest Pain atorvastatin 80 mg tablet 80 mg PO HS 03/12/21 04/28/23 04/27/23 solifenacin 5 mg tablet (Vesicare) 5 mg PO QAM 03/12/21 04/28/23 04/28/23 acetaminophen 500 mg tablet 1,000 mg PO AMHS 02/15/23 04/28/23 04/28/23 (Tylenol Extra Strength) am thiamine HCl (vitamin B1) 100 mg 100 mg PO QAM #30 tabs 02/18/23 04/28/23 04/28/23 tablet acetaminophen 500 mg tablet 1,000 mg PO DAILY PRN Fever Or Pain 04/28/23 04/28/23 Unknown (Acetaminophen Extra Strength) aspirin 81 mg tablet,delayed 81 mg PO QAM 04/28/23 04/28/23 04/28/23 release donepezil 5 mg tablet 5 mg PO QAM 04/28/23 04/28/23 04/28/23 isosorbide mononitrate 120 mg 120 mg PO QAM 04/28/23 04/28/23 04/28/23 tablet,extended release 24 hr magnesium oxide 400 mg PO QAM 04/28/23 04/28/23 04/28/23 sertraline 50 mg tablet 100 mg PO BID 04/28/23 04/28/23 04/28/23 am Active Medications Generic Name Dose Route Start Last Admin Trade Name Freq PRN Reason Stop Dose Admin Albuterol 3 ml 04/30/23 04:37 05/01/23 10:18 Albut/Ipratrop 3mg/0.5mg Neb 3 Ml Vial NEB 05/30/23 06:59 3 ml Q4R PRN Administration Shortness Of Breath Or Wheezing Protocol Aspirin 81 mg 04/29/23 09:00 05/01/23 08:48 Aspirin 81 Mg Ectab PO 05/29/23 08:59 81 mg QAM ARTIE Administration Atorvastatin Calcium 80 mg 04/28/23 21:00 04/30/23 20:28 Atorvastatin 40 Mg Tab PO 05/28/23 20:59 80 mg HS ARTIE Administration Benzonatate 100 mg 04/28/23 22:37 04/28/23 23:15 Benzonatate 100 Mg Capsule PO 05/28/23 22:36 100 mg TID PRN Administration Cough Benzonatate 100 mg 04/30/23 04:40 05/01/23 08:49 Benzonatate 100 Mg Capsule PO 05/30/23 04:39 100 mg TID ARTIE Administration Enoxaparin Sodium 40 mg 04/29/23 09:00 05/01/23 08:49 Enoxaparin Inj 40 Mg/0.4 Ml Syr SQ 05/29/23 08:59 40 mg QAM ARTIE Administration Guaifenesin 600 mg 04/28/23 21:00 05/01/23 08:49 Guaifenesin 600 Mg Tabcr PO 05/28/23 20:59 600 mg Q12 ARTIE Administration Doxycycline Hyclate 100 mg/ 100 mls @ 50 mls/hr 04/28/23 16:00 05/01/23 06:29 Dextrose IV 05/05/23 15:59 Infused Q12H ARTIE Infusion Ceftriaxone Sodium 2,000 mg/ 50 mls @ 100 mls/hr 04/30/23 16:00 04/30/23 17:23 Dextrose IV 05/05/23 15:59 Infused Q24H ARTIE Infusion Protocol Isosorbide Mononitrate 120 mg 04/29/23 09:00 05/01/23 08:49 Isosorbide [place] Extended Rel 60 Mg Tabcr PO 05/29/23 08:59 120 mg QAM ARTIE Administration Lisinopril 2.5 mg 04/28/23 22:40 04/30/23 20:28 Lisinopril 2.5 Mg Tab PO 05/28/23 22:39 2.5 mg HS ARTIE Administration
[2023-05-01] MEDS: cefTRIAXone SODIUM 2,000 MG in DEXTROSE 5 % MINI-B 50 ML IV SCH (17:25)
[2023-05-01] MEDS: ATORVASTATIN 40 MG TAB PO SCH (20:38)
[2023-05-01] MEDS: lisinopril 2.5 MG TAB PO SCH (20:38)
[2023-05-01] MEDS: guaiFENesin/DEXTROM SYRUP 100MG/10MG 5ML UDC PO PRN (20:39)
[2023-05-02] MEDS: DOXYCYCLINE HYCLATE 100 MG in DEXTROSE 5% MINI-B 100 ML IV SCH ×2 (04:23→16:13)
[2023-05-02] MEDS: ACETAMINOPHEN 325 MG TAB PO PRN ×2 (05:59→20:36)
[2023-05-02 06:02] LABS: Hematocrit (blood only) 32.2 % (37.0-47.0); Hemoglobin 10.5 g/dl (12.0-16.0); Mean Corpuscular Hemoglobin 27.1 pg (25.0-34.0); Mean Corpuscular Hgb Conc 32.6 g/dL (32.0-36.0); Platelet Count 215 K/uL (130-400); RDW Coefficient of Variation 14.9 % (11.5-14.5); RDW Standard Deviation 45.1 fL (36.4-46.3); Red Blood Count 3.88 M/uL (4.20-5.40); White Blood Count 5.85 K/ul (4.8-10.8)
[2023-05-02 06:42] LABS: Calcium 9.4 mg/dl (8.6-10.3); Est GFR (African American) 107.8 ml/min; Magnesium 1.6 mg/dl (1.7-2.4); Phosphorus 4.2 mg/dl (2.5-4.9); Potassium 3.8 mmol/L (3.5-5.1)
--- NOTE | 2023-05-02 07:43 | Electrocardiogram Report ---
Test Reason : Blood Pressure : / mmHG Vent. Rate : 084 BPM Atrial Rate : 084 BPM P-R Int : 230 ms QRS Dur : 146 ms QT Int : 428 ms P-R-T Axes : 054 -47 101 degrees QTc Int : 505 ms Sinus rhythm with 1st degree A-V block Left axis deviation Left bundle branch block Abnormal ECG When compared with ECG of 28-APR-2023 13:16, TX interval has increased Confirmed by Burt Vega ([id number]) on 05/02/2023 7:42:49 AM Referred By: REFERRED SELF Confirmed By:Mark Vega
--- NOTE | 2023-05-02 07:43 | Electrocardiogram Report ---
Test Reason : Blood Pressure : / mmHG Vent. Rate : 091 BPM Atrial Rate : 091 BPM P-R Int : 232 ms QRS Dur : 146 ms QT Int : 424 ms P-R-T Axes : 024 -49 097 degrees QTc Int : 521 ms Sinus rhythm with 1st degree A-V block with Premature atrial complexes Left axis deviation Left bundle branch block Abnormal ECG When compared with ECG of 01-MAY-2023 18:23, (unconfirmed) Premature atrial complexes are now Present Confirmed by Burt Vega ([id number] on 05/02/2023 7:42:45 AM Referred By: REFERRED SELF Confirmed By:Mark Vega
[2023-05-02] MEDS: MAGNESIUM SULFATE / D5W 1 GM/100 ML BAG IV SCH ×2 (08:23→10:15)
[2023-05-02] MEDS: ASPIRIN 81 MG ECTAB PO SCH (09:39)
[2023-05-02] MEDS: ISOSORBIDE MONO EXTENDED REL 60 MG TABCR PO SCH (09:39)
[2023-05-02] MEDS: ENOXAPARIN INJ 40 MG/0.4 ML SYR SQ SCH (09:39)
[2023-05-02] MEDS: guaiFENesin 600 MG TABCR PO SCH ×2 (09:39→20:35)
[2023-05-02] MEDS: BENZONATATE 100 MG CAPSULE PO SCH ×3 (09:39→20:34)
[2023-05-02] MEDS: cefTRIAXone SODIUM 2,000 MG in DEXTROSE 5 % MINI-B 50 ML IV SCH (15:36)
[2023-05-02] MEDS: guaiFENesin/DEXTROM SYRUP 100MG/10MG 5ML UDC PO PRN (15:39)
--- NOTE | 2023-05-02 16:56 | Hospitalist Progress Note ---
Date of Service May 02, 2023 Assessment & Plan (1) Pneumonia: (2) Generalized weakness: (3) Acute hypokalemia: (4) Hypomagnesemia: (5) Dyslipidemia: (6) AF (paroxysmal atrial fibrillation): (7) Depression: (8) Diabetes mellitus, type 2: Plan Ms. Painter is a 67 year old female that was admitted 04/28 with worsening cough over the past few weeks. Patient was able to participate in ROS, however, provided most of the reliable information due to her prog ressive dementia. On admission, imaging concerning for R sided opacities suggestive of a developing PNA. 2G Ceftriaxone administered in ED. Mild leukocytosis 11.36, hypokalemic 3.4, hypomagnesemia 1.6, and slightly elevated Troponin 18.3; suspect related to ischemic demand rather than ACS. Prolonged QtC 542. Biofire negative. Blood cultures, Procalcitonin and Lactate pending in ED. At baseline, patient uses a wheelchair walker; patient indicates her weakness has worsened along with behavioral disturbance and wandering at nighttime. PMH includes: DM2, HLD, Depression, CAD, Atrial Fibrillation, anxiety, OA, depression. Leukocytosis resolved with continued improvement.Plan for extended care approval from [facility]. No changes to plan currently, awaiting placement #Pneumonia #Leukocytosis *improved Chest x-ray right-sided opacity suggestive of PNA Mild leukocytosis 11.36, now normal Bio fire negative; Blood cultures NGTD, procalcitonin, lactate WNL Troponin 18.3; trend x1; suspect ischemic demand rather than ACS Continue CTX and doxy for CAP coverage, transition to PO prior to discharge QTc 542; avoid prolonging agents Continue Mucinex scheduled and Robitussin dm prn #Senile degeneration of the brain: #Generalized weakness: Suspect related to pneumonia and poor appetite, along with progressive dementia Discussed caregiver burnout Takes donepezil; hold due to prolonged QtC PT/OT/ST consults; may benefit from continued goals of care conversation including CODE STATUS and temporary placement. FAST scale: All of 6; indicating moderately severe dementia; borderline hospice qualification Patient with incontinent urine and bowels; wears a brief. #Acute hypokalemia: Acute uncontrolled Improved with replacement #Hypomagnesemia: Acute uncontrolled Continue to replace prn #Hyperlipidemia: Chronic stable Takes Atorvastatin; continue #Depression: Chronic stable Takes sertraline; hold for now due to prolonged QtC Repeat EKG in am Disposition: PCP: Dr. Yu CODE STATUS: Full code VTE prophylaxis: Lovenox SQ Admission and Anticipated Discharge Date Admission Date: April 28, 2023 Subjective NAEO Appears well, no further aspiration events Review of Systems Review of Systems: All systems reviewed & are unremarkable except as noted in Subjective Physical Exam Constitutional: WD/WN, vitals as above Respiratory: normal respiratory effort, lungs clear to auscultation Cardiovascular: RRR, no murmur, no edema Results & Data Results & Data Vital Signs (Past 12 Hours) Vital Signs Temp Pulse Pulse Resp BP BP Pulse Ox 05/02/23 16:47 36.4 C L 82 18 147/70 H 93 05/02/23 15:00 05/02/23 14:14 05/02/23 12:44 36.5 C 77 18 138/81 94 05/02/23 07:25 36.8 C 69 16 126/68 94 05/02/23 07:14 79 05/02/23 05:16 36.9 C 80 16 166/81 H 91 Pulse Ox O2 Del Method O2 Del Method 05/02/23 16:47 Room Air 05/02/23 15:00 95 Room Air 05/02/23 14:14 Room Air 05/02/23 12:44 Room Air 05/02/23 07:25 Room Air 05/02/23 07:14 05/02/23 05:16 Room Air Laboratory Results Short CBC 05/02/23 Range/Units 05:24 WBC 5.85 (4.8-10.8) K/ul Hgb 10.5 L (12.0-16.0) g/dl Hct 32.2 L (37.0-47.0) % Plt Count 215 (130-400) K/uL BMP 05/02/23 05:24 Sodium 137 Potassium 3.8 Chloride 104 Carbon Dioxide 26 BUN 12 Creatinine 0.60 Glucose 142 H Calcium 9.4 Medications Administered Home Medications Medication Instructions Recorded Confirmed Last Taken nitroglycerin 0.4 mg sublingual 0.4 mg sublingual DIRECTED PRN 06/16/18 04/28/23 Unknown tablet (Nitrostat) Chest Pain atorvastatin 80 mg tablet 80 mg PO HS 03/12/21 04/28/23 04/27/23 solifenacin 5 mg tablet (Vesicare) 5 mg PO QAM 03/12/21 04/28/23 04/28/23 acetaminophen 500 mg tablet 1,000 mg PO AMHS 02/15/23 04/28/23 04/28/23 (Tylenol Extra Strength) am thiamine HCl (vitamin B1) 100 mg 100 mg PO QAM #30 tabs 02/18/23 04/28/23 04/28/23 tablet acetaminophen 500 mg tablet 1,000 mg PO DAILY PRN Fever Or Pain 04/28/23 04/28/23 Unknown (Acetaminophen Extra Strength) aspirin 81 mg tablet,delayed 81 mg PO QAM 04/28/23 04/28/23 04/28/23 release donepezil 5 mg tablet 5 mg PO QAM 04/28/23 04/28/23 04/28/23 isosorbide mononitrate 120 mg 120 mg PO QAM 04/28/23 04/28/23 04/28/23 tablet,extended release 24 hr magnesium oxide 400 mg PO QAM 04/28/23 04/28/23 04/28/23 sertraline 50 mg tablet 100 mg PO BID 04/28/23 04/28/23 04/28/23 am Active Medications Generic Name Dose Route Start Last Admin Trade Name Freq PRN Reason Stop Dose Admin Acetaminophen 650 mg 04/28/23 15:31 05/02/23 05:59 Acetaminophen 325 Mg Tab PO 05/28/23 15:30 650 mg Q4H PRN Administration Pain or Fever Albuterol 3 ml 04/30/23 04:37 05/01/23 10:18 Albut/Ipratrop 3mg/0.5mg Neb 3 Ml Vial NEB 05/30/23 06:59 3 ml Q4R PRN Administration Shortness Of Breath Or Wheezing Protocol Aspirin 81 mg 04/29/23 09:00 05/02/23 09:39 Aspirin 81 Mg Ectab PO 05/29/23 08:59 81 mg QAM ARTIE Administration Atorvastatin Calcium 80 mg 04/28/23 21:00 05/01/23 20:38 Atorvastatin 40 Mg Tab PO 05/28/23 20:59 80 mg HS ARTIE Administration Benzonatate 100 mg 04/28/23 22:37 04/28/23 23:15 Benzonatate 100 Mg Capsule PO 05/28/23 22:36 100 mg TID PRN Administration Cough Benzonatate 100 mg 04/30/23 04:40 05/02/23 14:05 Benzonatate 100 Mg Capsule PO 05/30/23 04:39 100 mg TID ARTIE Administration Enoxaparin Sodium 40 mg 04/29/23 09:00 05/02/23 09:39 Enoxaparin Inj 40 Mg/0.4 Ml Syr SQ 05/29/23 08:59 40 mg QAM ARTIE Administration Guaifenesin 600 mg 04/28/23 21:00 05/02/23 09:39 Guaifenesin 600 Mg Tabcr PO 05/28/23 20:59 600 mg Q12 ARTIE Administration Guaifenesin/Dextromethorphan 5 ml 05/01/23 09:52 05/02/23 15:39 Guaifenesin/Dextrom Syrup 100mg/10mg 5ml Udc PO 05/31/23 09:51 5 ml Q6H PRN Administration Cough Doxycycline Hyclate 100 mg/ 100 mls @ 50 mls/hr 04/28/23 16:00 05/02/23 16:13 Dextrose IV 05/05/23 15:59 50 mls/hr Q12H ARTIE Administration Ceftriaxone Sodium 2,000 mg/ 50 mls @ 100 mls/hr 04/30/23 16:00 05/02/23 16:12 Dextrose IV 05/05/23 15:59 Infused Q24H ARTIE Infusion Protocol Isosorbide Mononitrate 120 mg 04/29/23 09:00 05/02/23 09:39 Isosorbide [place] Extended Rel 60 Mg Tabcr PO 05/29/23 08:59 120 mg QAM ARTIE Administration Lisinopril 2.5 mg 04/28/23 22:40 05/01/23 20:38 Lisinopril 2.5 Mg Tab PO 05/28/23 22:39 2.5 mg HS ARTIE Administration
[2023-05-02] MEDS: ATORVASTATIN 40 MG TAB PO SCH (20:34)
[2023-05-02] MEDS: lisinopril 2.5 MG TAB PO SCH (20:35)
[2023-05-03] MEDS: DOXYCYCLINE HYCLATE 100 MG in DEXTROSE 5% MINI-B 100 ML IV SCH ×2 (04:19→16:20)
[2023-05-03 06:41] LABS: Hematocrit (blood only) 33.5 % (37.0-47.0); Mean Corpuscular Hemoglobin 27.1 pg (25.0-34.0); Mean Corpuscular Hgb Conc 32.8 g/dL (32.0-36.0); Mean Corpuscular Volume 82.5 fL (80.0-100.0); Mean Platelet Volume 9.6 fL (9.4-12.4); Platelet Count 240 K/uL (130-400); RDW Coefficient of Variation 14.7 % (11.5-14.5); Red Blood Count 4.06 M/uL (4.20-5.40); White Blood Count 6.83 K/ul (4.8-10.8)
[2023-05-03 07:09] LABS: Calcium 9.5 mg/dl (8.6-10.3); Creatinine Clr Calc Pharmacy 66.7 ml/min; Est GFR (African American) 106.1 ml/min; Est GFR (Non-African American) 91.5 ml/min; Potassium 3.8 mmol/L (3.5-5.1)
[2023-05-03] MEDS ORDERED: POTASSIUM CHLORIDE 10 MEQ TABCR PO STA (08:05)
[2023-05-03] MEDS: guaiFENesin 600 MG TABCR PO SCH ×2 (09:13→21:24)
[2023-05-03] MEDS: ASPIRIN 81 MG ECTAB PO SCH (09:13)
[2023-05-03] MEDS: ISOSORBIDE MONO EXTENDED REL 60 MG TABCR PO SCH (09:13)
[2023-05-03] MEDS: ENOXAPARIN INJ 40 MG/0.4 ML SYR SQ SCH (09:13)
[2023-05-03] MEDS: guaiFENesin/DEXTROM SYRUP 100MG/10MG 5ML UDC PO PRN (09:13)
[2023-05-03] MEDS: BENZONATATE 100 MG CAPSULE PO SCH ×3 (09:13→21:24)
--- NOTE | 2023-05-03 12:28 | Hospitalist Progress Note ---
Date of Service May 03, 2023 Assessment & Plan (1) Pneumonia: (2) Generalized weakness: (3) Acute hypokalemia: (4) Hypomagnesemia: (5) Dyslipidemia: (6) AF (paroxysmal atrial fibrillation): (7) Depression: (8) Diabetes mellitus, type 2: Plan Ms. Painter is a 67 year old female that was admitted 04/28 with worsening cough over the past few weeks. Patient was able to participate in ROS, however, provided most of the reliable information due to her prog ressive dementia. On admission, imaging concerning for R sided opacities suggestive of a developing PNA. 2G Ceftriaxone administered in ED. Mild leukocytosis 11.36, hypokalemic 3.4, hypomagnesemia 1.6, and slightly elevated Troponin 18.3; suspect related to ischemic demand rather than ACS. Prolonged QtC 542. Biofire negative. Blood cultures, Procalcitonin and Lactate pending in ED. At baseline, patient uses a wheelchair walker; patient indicates her weakness has worsened along with behavioral disturbance and wandering at nighttime. PMH includes: DM2, HLD, Depression, CAD, Atrial Fibrillation, anxiety, OA, depression. Leukocytosis resolved with continued improvement.Plan for extended care approval from [facility]. No changes to plan currently, awaiting placement #Pneumonia #Leukocytosis *resolved Chest x-ray right-sided opacity suggestive of PNA Mild leukocytosis 11.36, now normal Bio fire negative; Blood cultures NGTD, procalcitonin, lactate WNL Troponin 18.3; trend x1; suspect ischemic demand rather than ACS Continue CTX and doxy for CAP coverage, transition to PO prior to discharge (EOT 05/05) QTc 542; avoid prolonging agents Continue Mucinex scheduled and Robitussin dm prn #Senile degeneration of the brain: #Generalized weakness: Suspect related to pneumonia and poor appetite, along with progressive dementia Discussed caregiver burnout Takes donepezil; hold due to prolonged QtC PT/OT/ST consults; may benefit from continued goals of care conversation including CODE STATUS and temporary placement. FAST scale: All of 6; indicating moderately severe dementia; borderline hospice qualification Patient with incontinent urine and bowels; wears a brief. #Coronary artery disease s/p stent mLAD 2008 #ICM s/p BiVICD #Prior PAF -Not on AC -Continue Imdur 120mg daily -Lisinopril 2.5mg qhs -Resume home coreg 3.25mg BID #Acute hypokalemia: Acute uncontrolled Improved with replacement #Hypomagnesemia: Acute uncontrolled Continue to replace prn #Hyperlipidemia: Chronic stable Takes Atorvastatin; continue #Depression: Chronic stable Takes sertraline; hold for now due to prolonged QtC Disposition: PCP: Dr. Yu CODE STATUS: Full code VTE prophylaxis: Lovenox SQ Admission and Anticipated Discharge Date Admission Date: April 28, 2023 Subjective NAEO States she is doing well and feels good Eating breakfast upon examination Review of Systems Review of Systems: All systems reviewed & are unremarkable except as noted in Subjective Physical Exam Constitutional: WD/WN, vitals as above Respiratory: normal respiratory effort, lungs clear to auscultation Cardiovascular: RRR, no murmur, no edema Results & Data Results & Data Vital Signs (Past 12 Hours) Vital Signs Temp Pulse Pulse Resp BP BP Pulse Ox 05/03/23 09:15 05/03/23 11:33 36.3 C L 84 18 150/74 H 93 05/03/23 08:07 36.6 C 76 18 157/83 H 93 05/03/23 07:14 90 05/03/23 02:51 36.7 C 81 16 117/70 90 O2 Del Method 05/03/23 09:15 Room Air 05/03/23 11:33 Room Air 05/03/23 08:07 Room Air 05/03/23 07:14 05/03/23 02:51 Room Air Laboratory Results Short CBC 05/03/23 Range/Units 06:08 WBC 6.83 (4.8-10.8) K/ul Hgb 11.0 L (12.0-16.0) g/dl Hct 33.5 L (37.0-47.0) % Plt Count 240 (130-400) K/uL BMP 05/03/23 06:08 Sodium 135 L Potassium 3.8 Chloride 101 Carbon Dioxide 26 BUN 12 Creatinine 0.63 Glucose 135 H Calcium 9.5 Medications Administered Home Medications Medication Instructions Recorded Confirmed Last Taken nitroglycerin 0.4 mg sublingual 0.4 mg sublingual DIRECTED PRN 06/16/18 04/28/23 Unknown tablet (Nitrostat) Chest Pain atorvastatin 80 mg tablet 80 mg PO HS 03/12/21 04/28/23 04/27/23 solifenacin 5 mg tablet (Vesicare) 5 mg PO QAM 03/12/21 04/28/23 04/28/23 acetaminophen 500 mg tablet 1,000 mg PO AMHS 02/15/23 04/28/23 04/28/23 (Tylenol Extra Strength) am thiamine HCl (vitamin B1) 100 mg 100 mg PO QAM #30 tabs 02/18/23 04/28/23 04/28/23 tablet acetaminophen 500 mg tablet 1,000 mg PO DAILY PRN Fever Or Pain 04/28/23 04/28/23 Unknown (Acetaminophen Extra Strength) aspirin 81 mg tablet,delayed 81 mg PO QAM 04/28/23 04/28/23 04/28/23 release donepezil 5 mg tablet 5 mg PO QAM 04/28/23 04/28/23 04/28/23 isosorbide mononitrate 120 mg 120 mg PO QAM 04/28/23 04/28/23 04/28/23 tablet,extended release 24 hr magnesium oxide 400 mg PO QAM 04/28/23 04/28/23 04/28/23 sertraline 50 mg tablet 100 mg PO BID 04/28/23 04/28/23 04/28/23 am Active Medications Generic Name Dose Route Start Last Admin Trade Name Mitchq PRN Reason Stop Dose Admin Acetaminophen 650 mg 04/28/23 15:31 05/02/23 20:36 Acetaminophen 325 Mg Tab PO 05/28/23 15:30 650 mg Q4H PRN Administration Pain or Fever Albuterol 3 ml 04/30/23 04:37 05/01/23 10:18 Albut/Ipratrop 3mg/0.5mg Neb 3 Ml Vial NEB 05/30/23 06:59 3 ml Q4R PRN Administration Shortness Of Breath Or Wheezing Protocol Aspirin 81 mg 04/29/23 09:00 05/03/23 09:13 Aspirin 81 Mg Ectab PO 05/29/23 08:59 81 mg QAM ARTIE Administration Atorvastatin Calcium 80 mg 04/28/23 21:00 05/02/23 20:34 Atorvastatin 40 Mg Tab PO 05/28/23 20:59 80 mg HS ARTIE Administration Benzonatate 100 mg 04/28/23 22:37 04/28/23 23:15 Benzonatate 100 Mg Capsule PO 05/28/23 22:36 100 mg TID PRN Administration Cough Benzonatate 100 mg 04/30/23 04:40 05/03/23 09:13 Benzonatate 100 Mg Capsule PO 05/30/23 04:39 100 mg TID ARTIE Administration Enoxaparin Sodium 40 mg 04/29/23 09:00 05/03/23 09:13 Enoxaparin Inj 40 Mg/0.4 Ml Syr SQ 05/29/23 08:59 40 mg QAM ARTIE Administration Guaifenesin 600 mg 04/28/23 21:00 05/03/23 09:13 Guaifenesin 600 Mg Tabcr PO 05/28/23 20:59 600 mg Q12 ARTIE Administration Guaifenesin/Dextromethorphan 5 ml 05/01/23 09:52 05/03/23 09:13 Guaifenesin/Dextrom Syrup 100mg/10mg 5ml Udc PO 05/31/23 09:51 5 ml Q6H PRN Administration Cough Doxycycline Hyclate 100 mg/ 100 mls @ 50 mls/hr 04/28/23 16:00 05/03/23 06:48 Dextrose IV 05/05/23 15:59 Infused Q12H ARTIE Infusion Ceftriaxone Sodium 2,000 mg/ 50 mls @ 100 mls/hr 04/30/23 16:00 05/02/23 16:12 Dextrose IV 05/05/23 15:59 Infused Q24H ARTIE Infusion Protocol Isosorbide Mononitrate 120 mg 04/29/23 09:00 05/03/23 09:13 Isosorbide [place] Extended Rel 60 Mg Tabcr PO 05/29/23 08:59 120 mg QAM ARTIE Administration Lisinopril 2.5 mg 04/28/23 22:40 05/02/23 20:35 Lisinopril 2.5 Mg Tab PO 05/28/23 22:39 2.5 mg HS ARTIE Administration
--- NOTE | 2023-05-03 12:43 | Electrocardiogram Report ---
Test Reason : Blood Pressure : / mmHG Vent. Rate : 082 BPM Atrial Rate : 082 BPM P-R Int : 206 ms QRS Dur : 146 ms QT Int : 442 ms P-R-T Axes : -13 -65 094 degrees QTc Int : 516 ms Sinus rhythm with Premature supraventricular complexes Left axis deviation Left bundle branch block Abnormal ECG When compared with ECG of 01-MAY-2023 18:26, No significant change was found Confirmed by Burt Vega ([id number] on 05/03/2023 12:43:31 PM Referred By: REFERRED SELF Confirmed By:Mark Veag
[2023-05-03] MEDS ORDERED: METOPROLOL SUCC 25MG EXT REL TAB PO SCH (12:45)
[2023-05-03] MEDS: cefTRIAXone SODIUM 2,000 MG in DEXTROSE 5 % MINI-B 50 ML IV SCH (15:05)
[2023-05-03] MEDS: carvediloL 3.125 MG TAB PO SCH (16:21)
[2023-05-03] MEDS: ATORVASTATIN 40 MG TAB PO SCH (21:23)
[2023-05-03] MEDS: lisinopril 2.5 MG TAB PO SCH (21:24)
[2023-05-03] MEDS: ACETAMINOPHEN 325 MG TAB PO PRN (21:25)
[2023-05-04] MEDS: DOXYCYCLINE HYCLATE 100 MG in DEXTROSE 5% MINI-B 100 ML IV SCH (03:26)
[2023-05-04] MEDS: carvediloL 3.125 MG TAB PO SCH (08:38)
[2023-05-04] MEDS: ISOSORBIDE MONO EXTENDED REL 60 MG TABCR PO SCH (08:38)
[2023-05-04] MEDS: BENZONATATE 100 MG CAPSULE PO SCH ×2 (08:38→13:34)
[2023-05-04] MEDS: guaiFENesin 600 MG TABCR PO SCH (08:39)
[2023-05-04] MEDS: ENOXAPARIN INJ 40 MG/0.4 ML SYR SQ SCH (08:40)
[2023-05-04] MEDS: ASPIRIN 81 MG ECTAB PO SCH (09:25)
--- NOTE | 2023-05-04 16:49 | Discharge Summary ---
Discharge Summary Date of Service May 04, 2023 Notes For Next Care Provider Medication Changes From Visit -Addition of lisinopril 5mg daily -Robitussin prn -Held donepezil and sertraline 2/2 QTc prolongation Admission HPI Per Admitting Provider Ms. Painter is a 67 year old female that presents to the ED with worsening cough over the past few weeks. While patient was able to participate in ROS; provided most of the reliable information due to her progressive dementia. Over the last week she has been conservatively treated at home with Tylenol cold and fume for the past week. Notably reports productive white sputum without any green or collins colors noted. Overall progressive weakness. All of patient's care needs are anticipated and met by her . CXR revealed R sided opacities suggestive of a developing PNA. 2G Ceftriaxone administered in ED. Mild leukocytosis 11.36, hypokalemic 3.4, hypomagnesemia 1.6, and slightly elevated Troponin 18.3; suspect related to ischemic demand rather than ACS. Prolonged QtC 542. Biofire negative. Blood cultures, Procalcitonin and Lactate pending in ED. At baseline, patient uses a wheelchair walker; patient indicates her weakness has worsened along with behavioral disturbance and wandering at nighttime. PMH includes: DM2, HLD, Depression, CAD, Atrial Fibrillation, anxiety, OA, depression. Pt denies pain, fever, chills, visual or auditory changes, SOB, chest pain, [place], dizziness, abdominal pain or tenderness, recent falls or trauma. As indicated while patient is able to follow commands and participate in conversation unsure of the validity of her responses. For now provide treatment for evolving pneumonia, hypokalemia, hypomagnesemia and overall progressive weakness secondary to progressive moderate to severe dementia with behavioral disturbance. Lengthy discussion held regarding increased care needs at home and caregiver burnout. No additional current help at the house. Patient has been receptive for PT OT speech evals with temporary placement options considered. Confirmed patient is currently a full code; this conversation could benefit from further discussion throughout inpatient hospitalization. Patient will be admitted for further evaluation and management. Please see A/P for further details. Principal Dx & Hospital Course #1 = Principal Diagnosis (1) Pneumonia: (2) Generalized weakness: (3) Acute hypokalemia: (4) Hypomagnesemia: (5) Dyslipidemia: (6) AF (paroxysmal atrial fibrillation): (7) Depression: (8) Diabetes mellitus, type 2: Plan Ms. Painter is a 67 year old woman with history of DM2, HLD, Depression, CAD, Atrial Fibrillation, anxiety, OA, depression that was admitted 04/28 with worsening cough over the past few weeks. Patient was able to participate in ROS, however, provided most of the reliable information due to her p rogressive dementia. On admission, imaging concerning for R sided opacities suggestive of a developing PNA. 2G Ceftriaxone administered in ED. Mild leukocytosis 11.36, hypokalemic 3.4, hypomagnesemia 1.6, and slightly elevated Troponin 18.3; suspect related to ischemic demand rather than ACS. Prolonged QtC 542. Biofire negative. Blood cultures, Procalcitonin and Lactate pending in ED. At baseline, patient uses a wheelchair walker; patient indicates her weakness has worsened along with behavioral disturbance and wandering at nighttime. Patient improved with treatment for presumptive CAP; however, required multiple attempts to reorient. expressed notable concern over his ability to care for patient assisted. Ultimately, it was decided to seek extended care options with eventual transfer to [place]. #Pneumonia *resolved #Leukocytosis *resolved Chest x-ray right-sided opacity suggestive of PNA Mild leukocytosis 11.36, now normal Bio fire negative; Blood cultures NGTD, procalcitonin, lactate WNL Troponin 18.3; trend x1; suspect ischemic demand rather than ACS Continue CTX and doxy for CAP coverage, completed course while admitted QTc 542; avoid prolonging agents Continue Robitussin dm prn for cough #Senile degeneration of the brain: #Generalized weakness: Suspect related to pneumonia and poor appetite, along with progressive dementia Takes donepezil; held due to prolonged QtC FAST scale: All of 6; indicating moderately severe dementia; borderline hospice qualification Patient with incontinent urine and bowels; wears a brief. Transfer to [facility] #Coronary artery disease s/p stent mLAD 2008 #ICM s/p BiVICD #Prior PAF -Not on AC -Continue Imdur 120mg daily -Started Lisinopril 5mg qhs -Continue home coreg 3.25mg BID #Hyperlipidemia: Chronic stable Takes Atorvastatin; continue #Depression: Chronic stable Takes sertraline; hold for now due to prolonged QtC On day of discharge, patient was interactive, eating well, and denied acute concerns. She ambulates with walker assistance and close support. Discharge Exam Constitutional WD/WN, vitals as above Respiratory normal respiratory effort, lungs clear to auscultation Cardiovascular RRR, no murmur, no edema Updated Medication List Medication Instructions Recorded Confirmed Type nitroglycerin 0.4 mg sublingual 0.4 mg sublingual DIRECTED PRN 06/16/18 04/28/23 History tablet (Nitrostat) Chest Pain atorvastatin 80 mg tablet 80 mg PO HS 03/12/21 04/28/23 History solifenacin 5 mg tablet (Vesicare) 5 mg PO QAM 03/12/21 04/28/23 History acetaminophen 500 mg tablet 1,000 mg PO AMHS 02/15/23 04/28/23 History (Tylenol Extra Strength) thiamine HCl (vitamin B1) 100 mg 100 mg PO QAM #30 tabs 02/18/23 04/28/23 Rx tablet aspirin 81 mg tablet,delayed 81 mg PO QAM 04/28/23 04/28/23 History release isosorbide mononitrate 120 mg 120 mg PO QAM 04/28/23 04/28/23 History tablet,extended release 24 hr magnesium oxide 400 mg PO QAM 04/28/23 04/28/23 History sertraline 50 mg tablet 100 mg PO BID 04/28/23 04/28/23 History carvedilol 3.125 mg tablet 3.125 mg PO BIDM 30 days #60 tabs 05/04/23 Rx dextromethorphan-guaifenesin 10 5 ml PO Q6H PRN cough 15 days #50 05/04/23 Rx mg-100 mg/5 mL oral syrup mL lisinopril 5 mg tablet (Zestril) 5 mg PO QPM 30 days #30 tabs 05/04/23 Rx Hospital Stay Data Consultations 04/28/23 15:15 ED Decision to Admit Stat Pending Results Patient Have Any Pending Studies at Discharge: No Discharge Instructions Given to Patient (Per Discharging Provider) Ms. Painter is a 67 year old female that was admitted 04/28 with worsening cough over the past few weeks. Patient was able to participate in ROS, however, provided most of the reliable information due to her progressive dementia. On admission, imaging concerning for R sided opacities suggestive of a developing PNA. 2G Ceftriaxone administered in ED. Mild leukocytosis 11.36, hypokalemic 3.4, hypomagnesemia 1.6, and slightly elevated Troponin 18.3; suspect related to ischemic demand rather than ACS. Prolonged QtC 542. Biofire negative. Blood cultures, Procalcitonin and Lactate pending in ED. At baseline, patient uses a wheelchair walker; patient indicates her weakness has worsened along with behavioral disturbance and wandering at nighttime. PMH includes: DM2, HLD, Depression, CAD, Atrial Fibrillation, anxiety, OA, depression. Leukocytosis resolved with continued improvement.Plan for extended care approval from [place]. No changes to plan currently, awaiting placement #Pneumonia #Upper airway cough syndrome #Leukocytosis *resolved Chest x-ray right-sided opacity suggestive of PNA Mild leukocytosis 11.36, now normal Bio fire negative; Blood cultures NGTD, procalcitonin, lactate WNL Troponin 18.3; trend x1; suspect ischemic demand rather than ACS Completed course for CAP/UTI QTc 542; avoid prolonging agents Continue Robitussin dm prn #Senile degeneration of the brain: #Generalized weakness: Suspect related to pneumonia and poor appetite, along with progressive dementia Takes donepezil; hold due to prolonged QtC FAST scale: All of 6; indicating moderately severe dementia; borderline hospice qualification Patient with incontinent urine and bowels; wears a brief. plan for rehab with continued discussions with regarding progress #Coronary artery disease s/p stent mLAD 2008 #ICM s/p BiVICD #Prior PAF -Not on AC -Continue Imdur 120mg daily -Continue Lisinopril 5mg qhs -Continue home coreg 3.25mg BID #Hyperlipidemia Takes Atorvastatin; continue #Depression: Chronic stable Takes sertraline; held for now due to prolonged QtC Total Time Total Time Spent Total Time Spent (In Minutes): 35
[2023-05-04] MEDS ORDERED: lisinopril 5 MG TAB PO SCH (21:00)
== END 2023-05-04 15:38 | DRG 194 ==
LOC: ED 11:24 → EDINP 15:31 → 2N 21:05

== ENCOUNTER 2024-02-22 01:36 | Observation (INO) ==
--- OUTSIDE RECORDS SUMMARY | 2024-02-22 01:41 | External Medical Summary | Summary of Care ---
Author Name Unknown Organization [facility] Address [address] [facility] [place] [address] Phone [phone] Care Team Providers Care Assistant Executive Housekeeper Name Role Phone Luzma Yu MD Primary Care Provid er Reason for Visit * Reason Comments pre-op exam Encounter Details Date Type Department Care Team (Late st Contact Info) Description 01/29/2024 1:15 PM EDT Office Visit Ophthalmology, [place] [address] Akira Khan DO [place] [address] Nurse [place] [facility] [place] [address] Combined forms of age-related cataract of both eyes* Allergies Active Allergy Reactions Criticality Noted Date Comments Adhesive Tape 01/22/2001 local skin reaction Wound Dressings 05/13/2022 Other reaction(s): Skin irritation Aspirin 04/05/2021 Other reaction(s): Stomach upset Latex Hives 04/05/2021 Penicillins 10/13/2003 hives documented as of this encounter (statuses as of 02/01/2024) Medications Medication Sig Dispensed Refills Start Date End Date Status ECOTRIN LOW STRENGTH 81 MG OR TBECIndications:Atri oventricular block, complete (HCC),Cardiac disease,Generalized anxiety disorder one by mouth daily 0 0 10/19/2003 Active Acetaminophen 500 MG Oral Tablet (Tylenol) Take 1 Tablet by mouth every 6 hours as needed. Take 2 tablets every 8 hours-mild pain/fever Active Nitroglycerin 0.4 MG Sublingual Tablet Sublingual (Nitrostat) Place 1 Tablet under the tongue every 5 minutes as needed for Pain, Chest. Active Atorvastatin Calcium 80 MG Oral Tablet (Lipitor)Indications :Dyslipidemia, goal to be determined,Ischemic cardiomyopathy Take 1 Tablet by mouth in the morning. 90 Tablet 3 10/31/2022 Active Isosorbide Mononitrate ER 120 MG Oral Tablet Extended Release 24 Hour (Imdur)Indications:I schemic cardiomyopathy Take 1 Tablet by mouth in the morning. 90 Tablet 3 10/31/2022 Active Levothyroxine Sodium 50 MCG Oral Tablet (Levoxyl)Indications :Acquired hypothyroidism (at least 30 min prior to breakfast or other meds) 90 Tablet 1 05/18/2023 Active Carvedilol 3.125 MG Oral Tablet (Coreg) Take 1 Tablet by mouth 2 times a day with morning and evening meals. 180 Tablet 3 05/18/2023 Active Magnesium Oxide -Mg Supplement 400 (240 Mg) MG Oral Tablet (Mag-Ox)Indications: Dyslipidemia, goal to be determined Take 1 Tablet by mouth in the morning. 90 Tablet 3 05/18/2023 Active Alendronate Sodium 70 MG Oral Tablet (Fosamax)Indications :Age-related osteoporosis without current pathological fracture Take 1 Tablet by mouth once a week. with 8 oz. water 30 minutes before first meal of the day. Remain upright for 30 min after taking tablet. 5 Tablet 11 05/18/2023 Active hydroCHLOROthiazide 12.5 MG Oral Tablet Take 1 Tablet by mouth in the morning. 90 Tablet 3 12/01/2023 Active traMADol HCl 50 MG Oral Tablet (Ultram)Indications: Chronic low back pain without sciatica, unspecified back pain laterality Take 1 Tablet by mouth daily as needed for Pain, Severe. Take 1000mg tylenol every 6-8 hours first. If no improvement in pain, then can use tramadol. 30 Tablet 12/04/2023 Active documented as of this encounter (statuses as of 02/01/2024) Active Problems Problem Noted Date Diagnosed Date Combined forms of age-related cataract of both e yes 09/21/2023 ICD (implantable cardioverte r-defibrillator), biventricular, in situ 05/18/2023 UGIB (upper gastrointestinal bleed) 05/18/2023 Pneumonia 05/18/2023 Mixed hearing loss, bilateral 05/18/2023 Fracture of L1 vertebra 05/18/2023 Fatigue 05/18/2023 Esophageal dysphagia 05/18/2023 Mild dementia associated wit h alcoholism, without behavioral disturbance, psychotic disturbance, mood disturbance, or anxiety 11/03/2022 Alcohol use disorder, severe, in early remission 11/03/2022 Generalized osteoarthritis 05/13/2022 Urge incontinence of urine 05/13/2022 Chronic kidney disease, stage 3a 02/10/2022 Overview: Per CKD protocol Prediabetes 02/10/2022 Overview: Per Prediabetes protocol Impaired mobility 04/05/2021 Pain of lumbar spine 04/05/2021 Osteoporosis 04/05/2021 H/O alcohol dependence 04/05/2021 Keratoacanthoma of forearm 09/09/2018 Skin exam, screening for cancer 09/02/2018 Overview: Keratoacanthoma (L forearm) Scalp psoriasis 09/01/2018 Mass of chest wall 12/13/2013 Dermatitis 08/05/2004 SKIN SENSATION DISTURB 02/02/2004 ACUTE STRESS 02/02/2004 Major depressive disorder, recurrent episode, mo derate 02/02/2004 ABN LIVER FUNCTION STUDY 10/31/2003 Venous insufficiency 10/30/2003 OVERWEIGHT 10/30/2003 Cardiac disease 10/19/2003 ALCOHOL ABUSE-CONTINUOUS 10/19/2003 Paroxysmal ventricular tachycardia 10/19/2003 Dyslipidemia, goal to be determined 10/19/2003 Atrioventricular block, complete 10/11/2003 Cardiac pacemaker in situ 10/11/2003 Menopause 10/07/2002 HTN, goal below 140/90 08/06/2002 H/O heart artery stent 08/06/2002 Ischemic cardiomyopathy 08/06/2002 Transient atrial fibrillation 08/06/2002 Hypothyroidism 08/06/2002 BENIGN HYPERTENSION 08/02/2002 FEM STRESS INCONTINENCE 06/01/2002 GENERALIZED ANXIETY DIS documented as of this encounter (statuses as of 02/01/2024) Resolved Problems Problem Noted Date Diagnosed Date Resolved Date Unstable angina 05/18/2023 09/22/2023 Abnormal mammogram 10/03/2002 4 Chemical dermatitis 10/30/19 04 documented as of this encounter (statuses as of 02/01/2024) Immunizations Name Administration Dates Next Due COVID-19 mRNA, LNP-s, No Pre serve, 2-Dose Series (Moderna) 11/06/2020,09/27/2020 Pneumococcal Conjugate Vaccine, 20-valent (Prevn ar20) 05/09/2022 Seasonal Influenza, Quadrivalent Hd (Fluzone Hd) 05/18/2023,05/09/2022 TDAP (age 10 and older)(Boostrix) 10/31/2022 documented as of this encounter Social History Tobacco Use Types Packs/Day Years Used Date Smoking Tobacco: Never Smokeless Tobacco: Never Alcohol Use Standard Drinks/Week Comments Yes 0 (1 standard drink = 0.6 oz pur e alcohol) occasionally Utilities Answer Date Recorded Do you have trouble paying y our heating, water, or electric bill? (Adult - for ages 18 years and over) Not on file 12/22/2023 Is your family able to pay t he heat, water, or electric bill? (Household - for ages 0-17 years) Not on file 12/22/2023 Does your family have access to good internet? (Household - for ages 0-17 years) Not on file 12/22/2023 Social Connections Answer Date Recorded How often do you feel lonely or isolated from those around you? (Adult - for ages 18 years and over) Not on file 12/22/2023 Sex and Gender Information Value Date Recorded Sex Assigned at Not on file Gender Identity Not on file Sexual Orientation Not on file Job Start Date Occupation Industry Not on file Not on file Not on file documented as of this encounter Progress Notes * Akira Khan DO - 01/29/2024 1:15 PM EDT 01/29/24 Codi Painter is a 68 year old patient here for IOL/ashely Referred by Dr. Jazlyn Leyva, OD Past Ocular History: T2DM without hx of retinopathy Cataract OU Myopia Eye Medications, reviewed: Denies Hx of refractive procedure, reviewed: Denies Hx of contact lens use, reviewed: Yes, but 2+ years since last worn Hx of eye trauma, reviewed: Denies FOHx, reviewed: Mother - glaucoma Date: 09/21/23 OCT Macula: OD - RPE defects sub fovea OS - Normal fovea, drusen A/P: Cataract OU Recommend CE/IOL right eye first. Risks, benefits, and alternatives were discussed with the patient. Explained the elective nature of the procedure and that no surgery is without risk. Discussed the option of continued non-surgical management and risks of worsening disease. Explained goals of surgery. No promises made re: outcome. Discussed options including glasses, surgery, observation. All pertinent risks and benefits reviewed with patient, including but not limited to: posterior capsule rupture, need for anterior vitrectomy, dropped/retained lens material, pain, inflammation, infection, abnormal IOP, retinal tear, retinal detachment, bleeding, need for more treatment/surgery, permanentvision loss. Typical postop course discussed and explained potential need for adjustment based on clinical course. The patient verbalized understanding of options, risks/benefits/alternatives of options, and that all questions/concerns were addressed. The patient verbalized a desire to proceed for CE/IOL Indication for removal = visually-significant both eyes Indication for cataract removal explained to patient, as well as expected postoperative visual outcome in setting of the patient's specific overall ocular health. Dilates = Well Guttata = None PXF=None Retina = See below Flomax = Denies Claustrophobia = Yes Anesthesia = Plan for mac/topical - get patient comfortable from anxiety Hx of refractive procedure=Denies IOL Measurements = -2.00 target 9/5 OD GLH 24 OS GLH IOL interpretation = Biometry (IOL) & topography (if indicated) will be obtained in near future to determine the intended refractive target for this patient. These choices will be reflected in the final selection of the intraocular lens at the time of surgery. Discussed options for surgical anesthesia and potential risks/benefits/alternatives of all options. Discussed need for post-operative drops. Discussed potential need for corrective lenses post-operatively. Discussed possible need for anterior vitrectomy Discussed need for post-operative laser procedure (Nd:YAG capsulotomy). Discussed other potential causes for current decreased visual acuity. The patient was strongly encouraged to call with any questions regarding surgery before and after. Will need GLH c/o cardiac condition RPE mottling of macula OU -Exam and OCT with RPE defects -Will monitor RTC DOS or sooner prn. A/P explained, patient verbalized understanding. Patient understands to f/u immediately with questions, concerns, or any ophthalmic issues. Akira Khan DO 01/29/24 documented in this encounter Nursing Notes * Angelia Osborne TECH - 01/29/2024 1:16 PM EDT IOL measurements of both eyes completed and scanned into the electronic medical record. documented in this encounter Plan of Treatment Upcoming Encounters Date Type Department Care Team (Late st Contact Info) Description 02/24/2024 2:00 PM EDT [facility] [address] [place] [facility] [phone] Abigail Mejia PA-C [address] [place] [address] 03/10/2024 11:18 AM EDT Hospital Encounter OR [facility], Operating Room, [facility] - 4th Floor [address] [place] [address] Akira Khan DO [address] [place] [address] 03/10/2024 11:18 AM EDT - 03/10/2024 12:08 PM EDT Surgery OR [facility], Operating Room, [facility] - 4th Floor [address] [place] [address] Akira Khan DO [address] [place] [address] RIGHT EXTRACAPSULAR CATARACT REMOVAL WITH INTRAOCULAR LENS 03/11/2024 8:15 AM EDT [facility] [address] [place] [address] Akira Khan DO [address] [place] [address] 03/17/2024 8:45 AM EDT Office Visit Ophthalmology, [facility] [address] [facility] [place] [address] Akira Khan DO [address] [place] [address] 03/25/2024 3:20 PM EDT [facility] Visit [facility] [address] [facility], [place] [phone] Luzma Yu MD [address] [facility], [place] [address] 03/29/2024 7:40 AM EDT Hospital Encounter OR [facility], Operating Room, [facility] - 4th Floor [address] [place] [address] Akira Khan DO [address] [place] [address] 03/29/2024 7:40 AM EDT - 03/29/2024 8:30 AM EDT Surgery OR [facility], Operating Room, [facility] - 4th Floor [address] [place] [address] Akira Khan DO [address] [place] [address] LEFT EXTRACAPSULAR CATARACT REMOVAL WITH INTRAOCULAR LENS 03/30/2024 7:45 AM EDT Office Visit [place] [address] [place] [address] Akira Khan DO [address] [place] [address] 04/07/2024 2:45 PM EDT Office Visit Ophthalmology, [facility] [address] [place] [address] Akira Khan, DO [address] [place] [address] 04/21/2024 3:45 PM EDT Office Visit Ophthalmology, [facility] [address] [place] [address] Akira Khan, DO [address] [place] [address] Scheduled Procedures Name Priority Associated Diagnoses Date/Ti me EXTRACAPSULAR CATARACT REMOVAL WITH INTRAOCULAR LENS Combined forms of age-related cataract of both eyes 03/10/2024 11:18 AM EDT EXTRACAPSULAR CATARACT REMOVAL WITH INTRAOCULAR LENS Cataract 03/29/2024 7:40 AM EDT Health Maintenance Due Date Last Done Comments Depression Monitoring 1967 Hepatitis C Screening 1971 Cologuard 1998 Colonoscopy 1998 Colorectal Cancer Screening 1998 Fecal Occult Blood Test 1998 Sigmoidoscopy 1998 Zoster Vaccines (1 of 2) 2003 COVID-19 Vaccine ( season) 2023 11/06/2020, 09/27/2020 Albumin/Creatinine Ratio 05/20/2023 05/20/2022 Mammogram 11/25/2023 11/24/2022, 06/01/2002 GFR 12/08/2023 06/08/2023, 03/06, 02/23/2023, Additional history exists Influenza Vaccine (FLU shot) (#1) 2024 05/18/2023, 05/09/2022 CKD HGB USE SMARTSET 19291 06/08/202406/08, 06/08/2023, 03/21/2023, Additional history exists CKD PHOS USE SMARTSET 00015 06/08/2024 12/0 10/2022, 02/23/2023, 05/09/2022 HbA1c 06/08/2024 06/08/2023, 0507/2022, 01/14/2022 TSH 06/08/2024 06/08/2023, 05/0 07/2022, 01/14/2022, Additional history exists DXA Scan 07/27/2025 07/27/2023, 07/27/2023 DTaP,Tdap,and Td Vaccines (2 - Td or Tdap) 10/31/2032 10/31/2022 Pneumococcal Vaccine: 65+ Years Completed 05/09/2022 VITAMIN D LEVEL ONCE IN A LIFETIME-USE SMARTSET# [id number] Completed 11/03/2022, 05/09/2022 *BASELINE EKG FOR HTN Completed 06/08/2023 HPV (Gardasil) Vaccine Aged Out No lo nger eligible based on patient's age to complete this topic Hepatitis B Vaccine Aged Out No longe r eligible based on patient's age to complete this topic MENINGOCOCCAL (MENACTRA/MENVEO) Aged Out No longer eligible based on patient's age to complete this topic documented as of this encounter Medical Devices Not on filedocumented as of this encounter Procedures Procedure Name Priority Date/Time Associated Diagnosis Comments COMPUTERIZED CORNEAL ASHELY Routine 01/29/2024 Combined forms of age-related cataract of both eyes IOL MEASUREMENTS, IOL MASTER Routine 01/29/2024 Combined forms of age-related cataract of both eyes documented in this encounter Results * COMPUTERIZED CORNEAL ASHELY (01/29/2024) Akira Khan DO MEDICINE Performing Organization Address [facility] Co de Phone Number CONTINUUM OPHTH * IOL MEASUREMENTS, IOL MASTER (01/29/2024) kAira Khan DO OTHER Performing Organization Address [facility] Co de Phone Number CONTINUUM OPHTH documented in this encounter Visit Diagnoses Diagnosis Combined forms of age-related cataract of both eyes- Primary Other and combined forms of senile cataract Combined forms of age-related cataract of both eyes- Primary Other and combined forms of senile cataract Combined forms of age-related cataract of both eyes Other and combined forms of senile cataract Cataract Unspecified cataract documented in this encounter Care Teams Assistant Executive Housekeeper Relationship Specialty Start Date End Date Luzma Yu MD [address] [place] [address] PCP - General Family Medicine 04/05/21 documented as of this encounter
--- OUTSIDE RECORDS SUMMARY | 2024-02-22 01:41 | External Medical Summary | Summary of Care ---
Author Name Unknown Organization [facility] Address [address] [facility] [place] [address] Phone [phone] Care Team Providers Care Power Reactor Supervisor Name Role Phone Luzma Yu MD Primary Care Provid er Encounter Details Date Type Department Care Team (Late st Contact Info) Description 12/08/2023 Telephone [place] [address] [place] [address] [facility] [place] [address] Allergies Active Allergy Reactions Criticality Noted Date Comments Adhesive Tape 01/22/2001 local skin reaction Wound Dressings 05/13/2022 Other reaction(s): Skin irritation Aspirin 04/05/2021 Other reaction(s): Stomach upset Latex Hives 04/05/2021 Penicillins 10/13/2003 hives documented as of this encounter (statuses as of 12/08/2023) Medications Medication Sig Dispensed Refills Start Date [...] as of this encounter (statuses as of 12/08/2023) Active Problems Problem Noted Date Diagnosed Date [...] as of this encounter (statuses as of 12/08/2023) Resolved Problems Problem Noted Date Diagnosed Date Resolved Date Unstable angina 05/18/2023 09/22/2023 Abnormal mammogram 10/03/2002 4 Chemical dermatitis 10/30/19 04 documented as of this encounter (statuses as of 12/08/2023) Immunizations Name Administration Dates Next Due COVID-19 [...] = 0.6 oz pur e alcohol) occasionally Sex and Gender Information Value Date Recorded Sex Assigned at Not on file Gender Identity Not on file Sexual Orientation Not on file Job Start Date Occupation Industry Not on file Not on file Not on file documented as of this encounter Miscellaneous Notes * Telephone Encounter - Mikki Coello OSA - 12/08/2023 11:22 AM EDT Attempted to contact patient.Surgery date 03/01 is being moved to 03/10. Unable to leave voicemail message. Voicemail not set up documented in this encounter Plan of Treatment Upcoming Encounters Date Type Department Care Team (Late st Contact Info) Description 01/29/2024 1:15 PM EDT Office Visit Ophthalmology, [place] [address] [place] [address] Akira Khan DO [place] [address] Nurse [place] [facility] [address] [place] [address] 02/24/2024 2:00 PM EDT [facility] [address] [facility] [phone] Abigail Mejia PA-C [address] [place] [address] 03/02/2024 8:30 AM EDT Office Visit Ophthalmology, [place] [address] [place] [address] Akira Khan, [address] [place] [address] 03/09/2024 10:15 AM EDT Office Visit Ophthalmology, [place] [address] [place] [address] Akira Khan, [address] [place] [address] 03/10/2024 11:18 AM EDT Hospital Encounter [place] [facility], Operating Room, [facility] - 4th Floor [address] [place] [address] Akira Khan, [address] [place] [address] 03/10/2024 11:18 AM EDT - 03/10/2024 12:08 PM EDT Surgery OR [facility], Operating Room, [facility] - 4th Floor [address] [place] [address] Akira Khan, [address] [place] [address] RIGHT EXTRACAPSULAR CATARACT REMOVAL WITH INTRAOCULAR LENS 03/25/2024 3:20 PM EDT [facility] [address] [facility] [phone] Luzma Yu MD [address] [facility] [address] 03/29/2024 7:40 AM EDT Hospital Encounter OR [facility], Operating Room, [facility] - 4th Floor [address] [place] [address] Akira Khan, [address] [place] [address] 03/29/2024 7:40 AM EDT - 03/29/2024 8:30 AM EDT Surgery OR [facility], Operating Room, [facility] - 4th Floor [address] [place] [address] Akira Khan, [address] [place] [address] LEFT EXTRACAPSULAR CATARACT REMOVAL WITH INTRAOCULAR LENS 03/30/2024 7:45 AM EDT Office Visit [place] [address] [place] [address] Akira Khan, [address] [place] [address] 04/04/2024 8:30 AM EDT Office Visit [place] [address] [place] [address] Akira Khan, [address] [place] [address] 04/29/2024 1:45 PM EDT Office Visit [place] [address] [place] [address] Akira Khan DO [address] [place] [address] Scheduled Procedures Name Priority Associated Diagnoses Date/Ti me EXTRACAPSULAR CATARACT REMOVAL WITH INTRAOCULAR LENS Combined forms of age-related cataract of both eyes 03/10/2024 11:18 AM EDT EXTRACAPSULAR CATARACT REMOVAL WITH INTRAOCULAR LENS Cataract 03/29/2024 7:40 AM EDT Health Maintenance Due Date Last Done Comments Hepatitis C Screening 1971 Cologuard 1998 Colonoscopy 1998 Colorectal Cancer Screening 1998 Fecal Occult Blood Test 1998 Sigmoidoscopy 1998 Zoster Vaccines (1 of 2) 2003 COVID-19 Vaccine (3 - season) 2023 11/06/2020, 09/27/2020 Albumin/Creatinine Ratio 05/20/2023 05/20/2022 Mammogram 11/25/2023 11/24/2022, 06/01/2002 GFR 12/08/2023 06/08/2023, 03/06, 02/23/2023, Additional history exists CKD HGB USE SMARTSET 38583 06/08/202406/08, 06/08/2023, 03/21/2023, Additional history exists CKD PHOS USE SMARTSET 38202 06/08/2024 12/0 10/2022, 02/23/2023, 05/09/2022 HbA1c 06/08/2024 06/08/2023, 05/0 07/2022, 01/14/2022 TSH 06/08/2024 06/08/2023, 05/0 07/2022, 01/14/2022, Additional history exists DXA Scan 07/27/2025 07/27/2023 DTaP,Tdap,and Td Vaccines (2 - Td or Tdap) 10/31/2032 10/31/2022 Pneumococcal Vaccine: 65+ Years Completed 05/09/2022 VITAMIN D LEVEL ONCE IN A LIFETIME-USE SMARTSET# [id number] Completed 11/03/2022, 05/09/2022 Influenza Vaccine (FLU shot) Completed 05/18/2023, 05/09/2022 GARDASIL-HPV IMMUNIZATION SERIES Aged Out No longer eligible based on patient's age to complete this topic Hepatitis B Aged Out No longer eligi ble based on patient's age to complete this topic MENINGOCOCCAL (MENACTRA/MENVEO) Aged Out No longer eligible based on patient's age to complete this topic documented as of this encounter Medical Devices Not on filedocumented as of this encounter Care Teams Power Reactor Supervisor Relationship Specialty Start Date End Date Luzma Yu MD [address] [place] [address] PCP - General Family Medicine 04/05/21 documented as of this encounter
--- OUTSIDE RECORDS SUMMARY | 2024-02-22 01:41 | External Medical Summary | Summary of Care ---
Author Name Unknown Organization [facility] Address [address] [facility] [place] [address] Phone [phone] Care Team Providers Care Welfare Visitor Name Role Phone Luzma Yu MD Primary Care Provid er Encounter Details Date Type Department Care Team (Late st Contact Info) Description 12/08/2023 Telephone [place] [address] [place] [address] Akira Khan DO [address] [employer] [place] [address] Allergies Active Allergy Reactions Criticality Noted Date Comments Adhesive Tape 01/22/2001 local skin reaction Wound Dressings 05/13/2022 Other reaction(s): Skin irritation Aspirin 04/05/2021 Other reaction(s): Stomach upset Latex Hives 04/05/2021 Penicillins 10/13/2003 hives documented as of this encounter (statuses as of 12/10/2023) Medications Medication Sig Dispensed Refills Start Date [...] as of this encounter (statuses as of 12/10/2023) Active Problems Problem Noted Date Diagnosed Date [...] as of this encounter (statuses as of 12/10/2023) Resolved Problems Problem Noted Date Diagnosed Date Resolved Date Unstable angina 05/18/2023 09/22/2023 Abnormal mammogram 10/03/2002 4 Chemical dermatitis 10/30/19 04 documented as of this encounter (statuses as of 12/10/2023) Immunizations Name Administration Dates Next Due COVID-19 [...] Telephone Encounter - Mikki Coello OSA - 12/10/2023 10:48 AM EDT Attempted to contact patient.Surgery date 03/01 is being moved to 03/10. Unable to leave voicemail message. Voicemail not set up ARNALDO Gooden 12/10/2023 10:48 AM * Telephone Encounter - Mikki Coello OSA - 12/08/2023 11:22 AM EDT Attempted to contact patient.Surgery date 03/01 is being moved to 03/10. Unable to leave voicemail message. Voicemail not set up documented in this encounter Plan of Treatment Upcoming Encounters Date Type Department Care Team (Late st Contact Info) Description 01/29/2024 1:15 PM EDT Office Visit Ophthalmology, [place] [address] Akira Khan DO [place] [address] Nurse [place] [facility] [place] [address] 02/24/2024 2:00 PM EDT Office Visit [facility] [address] [facility], [place] [phone] Abigail Mejia PA-C [address] [facility], [place] [address] 03/02/2024 8:30 AM EDT Office Visit Ophthalmology, [place] [facility] [address] [facility] [place] [address] Akira Khan, [address] [place] [address] 03/09/2024 10:15 AM EDT Office Visit Ophthalmology, [facility] [address] [place] [address] Akira Khan, [address] [place] [address] 03/10/2024 11:18 AM EDT Hospital Encounter [facility], Operating [facility], [facility] - 4th Floor [address] [facility] [place] [address] Akira Khan, 21 [place] [address] 03/10/2024 11:18 AM EDT - 03/10/2024 12:08 PM EDT Surgery OR [facility], Operating Room[facility] [address] Akira Khan DO [address] [place] [address] RIGHT EXTRACAPSULAR CATARACT REMOVAL WITH INTRAOCULAR LENS 03/25/2024 3:20 PM EDT Office [facility] [address] [facility] [phone] Luzma Yu MD [address] [facility] [address] 03/29/2024 7:40 AM EDT Hospital Encounter [facility], [facility] [address] Akira Khan, 21 [place] [address] 03/29/2024 7:40 AM EDT - 03/29/2024 8:30 AM EDT Surgery OR [facility], Operating Room, [facility] - 4th Floor [address] [place] [address] Akira Khan, 21 [place] [address] LEFT EXTRACAPSULAR CATARACT REMOVAL WITH INTRAOCULAR LENS 03/30/2024 7:45 AM [place] [address] Akira Khan, 21 [place] [address] 04/04/2024 8:30 AM [place] [address] Akira Khan, 21 [place] [address] 04/29/2024 1:45 PM [place] [address] Akira Khan, 21 [place] [address] Scheduled Procedures Name Priority Associated Diagnoses Date/Ti [...] Additional history exists CKD HGB USE SMARTSET 16224 06/08/202406/08, 06/08/2023, 03/21/2023, Additional history exists CKD PHOS USE SMARTSET 47652 06/08/2024 12/0 10/2022, 02/23/2023, 05/09/2022 HbA1c 06/08/2024 06/08/2023, 05/0 07/2022, 01/14/2022 TSH 06/08/2024 06/08/2023, 05/0 07/2022, 01/14/2022, Additional history exists DXA Scan 07/27/2025 07/27/2023 DTaP,Tdap,and Td Vaccines (2 - Td or Tdap) 10/31/2032 10/31/2022 Pneumococcal Vaccine: 65+ Years Completed 05/09/2022 VITAMIN D LEVEL ONCE IN A LIFETIME-USE SMARTSET# 78470 Completed 11/03/2022, 05/09/2022 Influenza Vaccine (FLU shot) [...] filedocumented as of this encounter Care Teams Welfare Visitor Relationship Specialty Start Date End Date Luzma Yu MD [address] [place] [address] PCP - General Family Medicine 04/05/21 documented as of this encounter
--- OUTSIDE RECORDS SUMMARY | 2024-02-22 01:41 | External Medical Summary | Summary of Care ---
Author Name Unknown Organization [facility] Address [address] [place] [address] Phone [phone] Care Team Providers Care Tennis Ball Coverer Hand Name Role Phone Luzma Yu MD Primary Care Provid er Reason for Visit * Reason Onset Date Comments Advice 09/24/2023 Encounter Details Date Type Department Care Team (Late st Contact Info) Description 09/24/2023 Telephone Ophthalmology, [address] [address] Services, Scheduling [address] [place] [address] Advice Allergies Active Allergy Reactions Criticality Noted Date Comments Adhesive Tape 01/22/2001 local skin reaction Wound Dressings 05/13/2022 Other reaction(s): Skin irritation Aspirin 04/05/2021 Other reaction(s): Stomach upset Latex Hives 04/05/2021 Penicillins 10/13/2003 hives documented as of this encounter (statuses as of 12/24/2023) Medications Medication Sig Dispensed Refills Start Date End Date Status ECOTRIN LOW STRENGTH 81 MG OR TBECIndications:Atrio ventricular block, complete (HCC),Cardiac disease,Generalized anxiety disorder one [...] Active Atorvastatin Calcium 80 MG Oral Tablet (Lipitor)Indications: Dyslipidemia, goal to be determined,Ischemic cardiomyopathy Take 1 Tablet by mouth in the morning. 90 Tablet 3 10/31/2022 Active Isosorbide Mononitrate ER 120 MG Oral Tablet Extended Release 24 Hour (Imdur)Indications:Is chemic cardiomyopathy Take 1 Tablet by mouth in the morning. 90 Tablet 3 10/31/2022 Active Levothyroxine Sodium 50 MCG Oral Tablet (Levoxyl)Indications: Acquired hypothyroidism (at least 30 min prior to breakfast or other meds) 90 Tablet 1 05/18/2023 Active Carvedilol 3.125 MG Oral Tablet (Coreg) Take 1 Tablet by mouth 2 times a day with morning and evening meals. 180 Tablet 3 05/18/2023 Active Magnesium Oxide -Mg Supplement 400 (240 Mg) MG Oral Tablet (Mag-Ox)Indications:D yslipidemia, goal to be determined Take 1 Tablet by mouth in the morning. 90 Tablet 3 05/18/2023 Active Alendronate Sodium 70 MG Oral Tablet (Fosamax)Indications: Age-related osteoporosis without current pathological fracture Take 1 Tablet by mouth once a week. with 8 oz. water 30 minutes before first meal of the day. Remain upright for 30 min after taking tablet. 5 Tablet 11 05/18/2023 Active documented as of this encounter (statuses as of 12/24/2023) Active Problems Problem Noted Date Diagnosed Date [...] as of this encounter (statuses as of 12/24/2023) Resolved Problems Problem Noted Date Diagnosed Date Resolved Date Unstable angina 05/18/2023 09/22/2023 Abnormal mammogram 10/03/2002 4 Chemical dermatitis 10/30/19 04 documented as of this encounter (statuses as of 12/24/2023) Immunizations Name Administration Dates Next Due COVID-19 [...] encounter Miscellaneous Notes * Telephone Encounter - Devonte Odonnell OSA - 09/24/2023 2:08 PM EDT Caller requesting the following information to be faxed: Name/Company of caller: [employer] Information requested to be faxed: office notes, 09/21/23 Fax number: [phone] Attention to Name/Company: [employer] Any additional information?: Caller also requested to be contacted if Dr. Khan needs additional information. documented in this encounter Plan of Treatment Upcoming Encounters Date Type Department Care Team (Late st Contact Info) Description 01/29/2024 1:15 PM EDT Office Visit Ophthalmology, [place] [address] Akira Khan DO [place] [address] Nurse [place] [facility] [place] [address] 02/24/2024 2:00 PM EDT Office Visit [facility] [address] [facility], [place] [phone] Abigail Mejia PA-C [address] [facility], [place] [address] 03/10/2024 11:18 AM EDT Hospital Encounter OR GL, Operating Room, [facility] - 4th Floor [address] [place] [address] Akira Khan, DO [address] [place] [address] 03/10/2024 11:18 AM EDT - 03/10/2024 12:08 PM EDT Surgery OR [facility], Operating Room, [facility] - 4th Floor [address] [place] [address] Akira Khan, [address] [place] [address] RIGHT EXTRACAPSULAR CATARACT REMOVAL WITH INTRAOCULAR LENS 03/11/2024 8:15 AM EDT [facility] [address] [place] [address] Akira Khan, [address] [place] [address] 03/18/2024 8:15 AM EDT [facility] [address] [place] [address] Akira Khan, [address] [place] [address] 03/25/2024 3:20 PM EDT Office Visit [facility] [address] [facility], [place] [phone] Luzma Yu MD [address] [facility], [place] [address] 03/29/2024 7:40 AM EDT Hospital Encounter OR [facility], Operating Room, [facility] - 4th Floor [address] [place] [address] Akira Khan, DO [address] [place] [address] 03/29/2024 7:40 AM EDT - 03/29/2024 8:30 AM EDT Surgery OR [facility], Operating Room, [facility] - 4th Floor [address] [place] [address] Akira Khan, 21 [place] [address] LEFT EXTRACAPSULAR CATARACT REMOVAL WITH INTRAOCULAR LENS 03/30/2024 7:45 AM [place] [address] Akira Khan, 21 [place] [address] 04/04/2024 8:30 AM [place] [address] Akira Khan, 21 [place] [address] 04/29/2024 1:45 PM EDT [place] [address] Akira Khan, 21 [place] [address] Scheduled Procedures Name Priority Associated Diagnoses Date/Ti [...] Additional history exists CKD HGB USE SMARTSET 05905 06/08/202406/08, 06/08/2023, 03/21/2023, Additional history exists CKD PHOS USE SMARTSET 11517 06/08/2024 12/0 10/2022, 02/23/2023, 05/09/2022 HbA1c 06/08/2024 06/08/2023, 05/0 07/2022, 01/14/2022 TSH 06/08/2024 06/08/2023, 05/0 07/2022, 01/14/2022, Additional history exists DXA Scan 07/27/2025 07/27/2023, 07/27/2023 DTaP,Tdap,and Td Vaccines (2 - Td or Tdap) 10/31/2032 10/31/2022 Pneumococcal Vaccine: 65+ Years Completed 05/09/2022 VITAMIN D LEVEL ONCE IN A LIFETIME-USE SMARTSET# [id number] Completed 11/03/2022, 05/09/2022 Influenza Vaccine (FLU shot) [...] filedocumented as of this encounter Care Teams Tennis Ball Coverer Hand Relationship Specialty Start Date End Date Luzma Yu MD [address] [place] [address] PCP - General Family Medicine 04/05/21 documented as of this encounter
--- OUTSIDE RECORDS SUMMARY | 2024-02-22 01:41 | External Medical Summary | Summary of Care ---
Author Name Unknown Organization [facility] Address [address] [place] [address] Phone [phone] Care Team Providers Care Body Engineer Name Role Phone Luzma Yu MD Primary Care Provid er Reason for Visit * Reason Comments Chronic Kidney Disease (CKD) Encounter Details Date Type Department Care Team (Late st Contact Info) Description 12/01/2023 2:00 PM EDT Office Visit Nephrology, Lawrence Wolfe [address] [facility] [place] [address] Franko Dietrich MD [address] [facility] [place] [address] Stage 3a chronic kidney disease (HCC)*; HTN, goal below 140/90 Allergies Active Allergy Reactions Criticality Noted Date Comments Adhesive Tape 01/22/2001 local skin reaction Wound Dressings 05/13/2022 Other reaction(s): Skin irritation Aspirin 04/05/2021 Other reaction(s): Stomach upset Latex Hives 04/05/2021 Penicillins 10/13/2003 hives documented as of this encounter (statuses as of 12/01/2023) Medications Medication Sig Dispensed Refills Start Date End Date Status ECOTRIN LOW STRENGTH 81 MG OR TBECIndications:Atr ioventricular block, complete (HCC),Cardiac disease,Generalized anxiety disorder one by mouth daily 0 0 4 Active Acetaminophen 500 MG Oral Tablet (Tylenol) Take 1 Tablet by mouth every 6 hours as needed. Take 2 tablets every 8 hours-mild pain/fever Active Nitroglycerin 0.4 MG Sublingual Tablet Sublingual (Nitrostat) Place 1 Tablet under the tongue every 5 minutes as needed for Pain, Chest. Active Atorvastatin Calcium 80 MG Oral Tablet (Lipitor)Indication s:Dyslipidemia, goal to be determined,Ischemic cardiomyopathy Take 1 Tablet by mouth in the morning. 90 Tablet 3 3 Active Isosorbide Mononitrate ER 120 MG Oral Tablet Extended Release 24 Hour (Imdur)Indications: Ischemic cardiomyopathy Take 1 Tablet by mouth in the morning. 90 Tablet 3 3 Active Levothyroxine Sodium 50 MCG Oral Tablet (Levoxyl)Indication s:Acquired hypothyroidism (at least 30 min prior to breakfast or other meds) 90 Tablet 1 3 Active Carvedilol 3.125 MG Oral Tablet (Coreg) Take 1 Tablet by mouth 2 times a day with morning and evening meals. 180 Tablet 3 3 Active Magnesium Oxide -Mg Supplement 400 (240 Mg) MG Oral Tablet (Mag-Ox)Indications :Dyslipidemia, goal to be determined Take 1 Tablet by mouth in the morning. 90 Tablet 3 3 Active Alendronate Sodium 70 MG Oral Tablet (Fosamax)Indication s:Age-related osteoporosis without current pathological fracture Take 1 Tablet by mouth once a week. with 8 oz. water 30 minutes before first meal of the day. Remain upright for 30 min after taking tablet. 5 Tablet 11 3 Active traMADol HCl 50 MG Oral Tablet (Ultram)Indications :Chronic low back pain without sciatica, unspecified back pain laterality Take 1 Tablet by mouth daily as needed for Pain, Severe. Take 1000mg tylenol every 6-8 hours first. If no improvement in pain, then can use tramadol. 30 Tablet 4 Active hydroCHLOROthiazide 12.5 MG Oral Tablet Take 1 Tablet by mouth in the morning. 90 Tablet 3 4 Active Vitamin B-1 100 MG Oral TabletIndications:A lcohol use disorder, moderate, in early remission, dependence (HCC) Take by mouth 1 Tablet in the morning. 90 Tablet 3 2 12/01/19 24 Discontinued Pantoprazole Sodium 40 MG Oral Tablet Delayed Release (Protonix) Take 1 Tablet by mouth in the morning. 12/01/19 24 Discontinued Benzonatate 100 MG Oral Capsule (Tessalon Perles) Take 1 Capsule by mouth 3 times a day as needed for Cough. 12/01/19 24 Discontinued Thiamine HCl 100 MG Oral Tablet (vitamin B-1) 1 Tablet. 3 12/01/19 24 Discontinued Solifenacin Succinate 5 MG Oral Tablet (VESIcare)Indicatio ns:Urge incontinence of urine Take 1 Tablet by mouth in the morning. 90 Tablet 3 3 12/01/19 24 Discontinued Zoster Vac Recomb Adjuvanted 50 MCG/0.5ML Intramuscular Suspension Reconstituted (Shingrix)Indicatio ns:Need for vaccination for zoster Inject 0.5 mL into a large muscle now and repeat dose in 60 to 180 days 1 Each 1 3 12/01/19 24 Discontinued Lidocaine 5 % External Patch (Lidoderm)Indicatio ns:Chronic low back pain without sciatica, unspecified back pain laterality Place 1 Patch over 12 hours topically on the skin daily. For back pain. 30 Patch 5 4 12/01/19 24 Discontinued documented as of this encounter (statuses as of 12/01/2023) Active Problems Problem Noted Date Diagnosed Date [...] as of this encounter (statuses as of 12/01/2023) Resolved Problems Problem Noted Date Diagnosed Date Resolved Date Unstable angina 05/18/2023 09/22/2023 Abnormal mammogram 10/03/2002 4 Chemical dermatitis 10/30/19 04 documented as of this encounter (statuses as of 12/01/2023) Immunizations Name Administration Dates Next Due COVID-19 [...] on file documented as of this encounter Last Filed Vital Signs Vital Sign Reading Time Taken Comments Blood Pressure 150/79 12/01/2023 2:03 PM EDT Pulse 76 12/01/2023 2:03 PM EDT Temperature 37 C (98.6 F) 12/01/2023 2:03 PM EDT Respiratory Rate - - Oxygen Saturation - - Inhaled Oxygen Concentration - - Weight 58.9 kg (129 lb 14.4 oz) 12/01/2023 2:03 PM EDT Height - - Body Mass Index 23.76 09/22/2023 12:59 PM EDT documented in this encounter Patient Instructions * Patient Instructions* Franko Dietrich MD - 12/01/2023 2:25 PM EDT Start HCTZ 12.5 daily. Labs in about 1 week after the start documented in this encounter Progress Notes * Franko Dietrich MD - 12/01/2023 2:18 PM EDT Chief Complaint Patient presents with Chronic Kidney Disease (CKD) HPI: 68--year-old female with history type 2 diabetes fairly mild controlled on single agent metformin with a A1c of less than 7%, Hypertension, coronary artery disease status post stent normal ejection fraction, atrial fibrillation Status post biventricular pacemaker, Severe osteoporosis with fracture of the back status post surgery, Hypothyroidism, history of alcohol abuse. Since last visit November 2022-----lot of medications change. No longer on hydrochlorothiazide and she feels she has more edema at the end of the day. She is on lot less medication now. Very hard of hearing. was present for the appointment and filled in lot of details. She did have labs done in June 2023 and kidney function was normal. Patient Active Problem List Diagnosis GENERALIZED ANXIETY DIS FEM STRESS INCONTINENCE BENIGN HYPERTENSION Menopause Atrioventricular block, complete (HCC) Cardiac pacemaker in situ Cardiac disease ALCOHOL ABUSE-CONTINUOUS Paroxysmal ventricular tachycardia (HCC) Dyslipidemia, goal to be determined Venous insufficiency OVERWEIGHT ABN LIVER FUNCTION STUDY SKIN SENSATION DISTURB ACUTE STRESS Major depressive disorder, recurrent episode, moderate (HCC) Dermatitis Mass of chest wall Scalp psoriasis Skin exam, screening for cancer Keratoacanthoma of forearm Impaired mobility Pain of lumbar spine HTN, goal below 140/90 H/O heart artery stent Ischemic cardiomyopathy Transient atrial fibrillation (HCC) Hypothyroidism Osteoporosis H/O alcohol dependence ([facility]) Chronic kidney disease, stage 3a ([facility]) Prediabetes Generalized osteoarthritis Urge incontinence of urine Mild dementia associated with alcoholism, without behavioral disturbance, psychotic disturbance, mood disturbance, or anxiety ([facility]) Alcohol use disorder, severe, in early remission ([facility]) ICD (implantable cardioverter-defibrillator), biventricular, in situ UGIB (upper gastrointestinal bleed) Pneumonia Mixed hearing loss, bilateral Fracture of L1 vertebra ([facility]) Fatigue Esophageal dysphagia Combined forms of age-related cataract of both eyes Current Outpatient Medications Medication Sig Dispense Refill ECOTRIN LOW STRENGTH 81 MG OR TBEC one by mouth daily 0 0 Acetaminophen 500 MG Oral Tablet (Tylenol) Take 1 Tablet by mouth every 6 hours as needed. Take 2 tablets every 8 hours-mild pain/fever Nitroglycerin 0.4 MG Sublingual Tablet Sublingual (Nitrostat) Place 1 Tablet under the tongue every5 minutes as needed for Pain, Chest. Atorvastatin Calcium 80 MG Oral Tablet (Lipitor) Take 1 Tablet by mouth in the morning. 90 Tablet 3 Isosorbide Mononitrate ER 120 MG Oral Tablet Extended Release 24 Hour (Imdur) Take 1 Tablet by mouth in the morning. 90 Tablet 3 Levothyroxine Sodium 50 MCG Oral Tablet (Levoxyl) (at least 30 min prior to breakfast or other meds) 90 Tablet 1 Carvedilol 3.125 MG Oral Tablet (Coreg) Take 1 Tablet by mouth 2 times a day with morning and evening meals. 180 Tablet 3 Magnesium Oxide -Mg Supplement 400 (240 Mg) MG Oral Tablet (Mag-Ox) Take 1 Tablet by mouth in the morning. 90 Tablet 3 Alendronate Sodium 70 MG Oral Tablet (Fosamax) Take 1 Tablet by mouth once a week. with 8 oz. water30 minutes before first meal of the day. Remain upright for 30 min after taking tablet. 5 Tablet 11 traMADol HCl 50 MG Oral Tablet (Ultram) Take 1 Tablet by mouth daily as needed for Pain, Severe. Take 1000mg tylenol every 6-8 hours first. If no improvement in pain, then can use tramadol. 30 Tablet0 Vitamin B-1 100 MG Oral Tablet Take by mouth 1 Tablet in the morning. (Patient not taking: Reportedon 12/01/2023) 90 Tablet 3 Pantoprazole Sodium 40 MG Oral Tablet Delayed Release (Protonix) Take 1 Tablet by mouth in the morning. (Patient not taking: Reported on 12/01/2023) Benzonatate 100 MG Oral Capsule (Tessalon Perles) Take 1 Capsule by mouth 3 times a day as needed for Cough. (Patient not taking: Reported on 12/01/2023) Thiamine HCl 100 MG Oral Tablet (vitamin B-1) 1 Tablet. (Patient not taking: Reported on 12/01/2023) Solifenacin Succinate 5 MG Oral Tablet (VESIcare) Take 1 Tablet by mouth in the morning. (Patient not taking: Reported on 12/01/2023) 90 Tablet 3 Zoster Vac Recomb Adjuvanted 50 MCG/0.5ML Intramuscular Suspension Reconstituted (Shingrix) Inject 0.5 mL into a large muscle now and repeat dose in 60 to 180 days (Patient not taking: Reported on 09/22/2023) 1 Each 1 Lidocaine 5 % External Patch (Lidoderm) Place 1 Patch over 12 hours topically on the skin daily. For back pain. (Patient not taking: Reported on 12/01/2023) 30 Patch 5 No current facility-administered medications for this visit. Past Medical History: Diagnosis Date Chemical dermatitis Female stress incontinence Generalized anxiety disorder HTN, goal below 140/90 08/08 Menopause Rheumatic heart disease age 10 Past Surgical History: Procedure Laterality Date INSER DUAL [facility] PAC CARDIOVRTR 08/09 LIGATE/CUT OVIDUCT(S) 1994 Tubal Ligation NECK/CHEST SUBQ TUMOR REMOVAL, 3 CM OR MORE 12/05/13 LARGE SEBACEOUS CYST CHEST WALL MEASURING 5X7 CM [facility] 12/05/13 REMOVE GALLBLADDER 1979 Review of patient's allergies indicates: Allergen Reactions Adhesive Tape local skin reaction Allevyn Adhesive [Wound Dressings] Other reaction(s): Skin irritation Aspirin Other reaction(s): Stomach upset Latex Hives Penicillins hives Family History Problem Relation Name Age of Onset Mental Disorder Grandfather (Maternal) depression Mental Disorder Mother anxiety Mental Disorder Sister anxiety Mental Disorder Sister anxiety Heart Disorder Sister Hypertension Mother Hypertension Sister Family Status Relation Status MGFA (Not Specified) Mo (Not Specified) Sis (Not Specified) Sis (Not Specified) Sis (Not Specified) Sis (Not Specified) Sis (Not Specified) Social History Socioeconomic History Marital status: Spouse name: Not on file Number of children: 1 Years of education: Not on file Highest education level: Not on file Occupational History Occupation: [employer]. Tobacco Use Smoking status: Never Smokeless tobacco: Never Vaping Use Vaping status: Never Used Substance and Sexual Activity Alcohol use: Yes Comment: occasionally Drug use: No Comment: decaf tea Sexual activity: Yes Partners: Male control/protection: Surgical Other Topics Concern Not on file Social History Narrative Not on file Social Determinants of Health Financial Resource Strain: Not on file Food Insecurity: Not on file Transportation Needs: Not on file Physical Activity: Not on file Stress: Not on file Social Connections: Not on file Intimate Partner Violence: Not on file Housing Stability: Not on file Review of Systems: 12 systems reviewed and negative OBJECTIVE: Physical Exam: BP 150/79 (BP Site: Right Arm, BP Position: Sitting, BP Cuff Size: Regular) | Pulse 76 | Temp 37 C (98.6 F) (Tympanic) | Wt 58.9 kg (129 lb 14.4 oz) | LMP 12/22/2001 | BMI 23.76 kg/m | BSA 1.61m General: alert and no distress Head: No masses, lesions, tenderness or abnormalities Neck: supple, no JVD Heart: regular rate & rhythm, no murmur and no gallops Lungs: normal respiratory rate and rhythm, lungs clear to auscultation Abdomen: abdomen soft and non-tender Back: no costovertebral angle tenderness Extremities: no edema Neuro Exam: alert & oriented x 3 with fluent speech, no focal motor/sensory deficits Skin: skin color, texture, turgor are normal, no rashes or significant lesions Recent Labs Units 06/08/23 1250 03/21/23 1208 02/23/23 0000 11/03/22 1253 SODIUM - [facility] mmol/L 140 135 -- 136 POTASSIUM - [facility] mmol/L 4.4 4.1 -- 4.5 POTASSIUM-OUTSIDE LAB -- -- 4.6 -- CHLORIDE - [facility] mmol/L 106 98 -- 100 CO2 - [facility] mmol/L 25 23 -- 25 EGFR-OUTSIDE LAB -- -- 53* -- BUN - [facility] mg/dL 22* 15 -- 23* CREATININE - [facility] mg/dL 1.0 1.0 -- 1.2* CREATININE-OUTSIDE LAB -- -- 1.12 -- ESTIMATED GLOMERULAR FILTRATION RATE - [facility] mL/min 62 62 -- 49* Recent Labs Units 06/08/23 1250 03/21/23 1208 02/23/23 0000 11/03/22 1253 01/14/22 1203 HGB g/dL 11.8* 11.6* 9.6* 11.6* 11.9* FERRITIN - [facility] ng/mL 212* -- -- 245* 220* TRANSFERRIN SATURATION PERCENT - [facility] % 30 -- -- 27 22 Recent Labs Units 06/08/23 1250 03/21/23 1208 02/23/23 0000 11/03/22 1253 05/09/22 1635 CALCIUM - [facility] mg/dL 9.2 9.5 -- 10.2 -- PHOSPHORUS - [facility] mg/dL 3.4 -- -- -- 3.3 PHOSPHORUS-OUTSIDE LAB -- -- 4.0 -- -- 25-HYDROXY VITAMIN D - [facility] ng/mL -- -- -- 48 57 Recent Labs Units 06/08/23 1250 11/03/22 1253 01/14/22 1203 HEMOGLOBIN A1C - [facility] % 6.0* 6.1* 6.4* Recent Labs Units 05/20/22 1137 ALBUMIN / CREATININE RATIO, URINE - [facility] mg/g Creat 106* Assessment: Stage 3a chronic kidney disease (HCC) (Primary) CKD stage 3 with GFR in 50's range in general with mild microalbuminuria secondary to combination of medical issues including diabetes hypertension cardiac disease. But this is not a case of classic diabetic nephropathy. Her renal prognosis is still good as long as she does not develop severe cardiac problems for which she is at risk. normal exam . Diabetes excellently controlled. we discussed the need to avoid NSAIDs. She does havechronic pain for which she takes Tylenol. She was asking about tramadol. Defer this to her primary care especially given her history of alcohol abuse in the past. recent labs done June 2023 was reviewed and discussed. patient and her were very worried that she was getting close to needing dialysis. However they felt very reassured once explain that her current GFR is quite good and she is in no danger of needing dialysis for the foreseeable future Will restart hydrochlorothiazide 12.5 daily and then do labs as below in 1-2 weeks after the start. - PTH; Future; Expected date: 12/01/2023 - RENAL FUNCTION PANEL; Future; Expected date: 12/01/2023 - PROTEIN/ CREATININE RATIO, URINE; Future; Expected date: 12/01/2023 - HGB; Future; Expected date: 12/01/2023 HTN, goal below 140/90 Other orders Blood pressure is not controlled. She used to be on hydrochlorothiazide and does not recall having any side effects. Given this will restart - hydroCHLOROthiazide 12.5 MG Oral Tablet; Take 1 Tablet by mouth in the morning. Follow Up: Return in about 1 year (around 11/30/2024) for Clinic Visit. | For: Clinic Visit | Check-out note: Labs in 1 week after med started Franko Dietrich MD documented in this encounter Nursing Notes * Rosibel Zavala LPN - 12/01/2023 1:59 PM EDT Chief Complaint Patient presents with Chronic Kidney Disease (CKD) Pt stated has swelling in feet. documented in this encounter Plan of Treatment Upcoming Encounters Date Type Department Care Team (Late st Contact Info) Description 12/03/2023 2:15 PM EDT Imaging Radiology [address] [place] [address] 01/29/2024 1:15 PM EDT Office [place] [facility] [address] Akira Khan DO [place] [address] Nurse [place] [facility] [place] [address] 02/24/2024 2:00 PM EDT Office Visit [address], [place] [phone] Abigail Mejia PA-C [address] [facility], [place] [address] 03/01/2024 10:24 AM EDT Hospital Encounter OR [facility], Operating Room, [facility] - 4th Floor [address] [place] [address] Akira Khan, DO [address] [place] [address] 03/01/2024 10:24 AM EDT - 03/01/2024 11:14 AM EDT Surgery OR [facility], Operating Room, [facility] - 4th Floor [address] [place] [address] Akira Khan, 21 [place] [address] RIGHT EXTRACAPSULAR CATARACT REMOVAL WITH INTRAOCULAR LENS 03/02/2024 8:30 AM EDT Office Visit [facility] [place] [address] [place] [address] Akira Khan, 21 [place] [address] 03/09/2024 10:15 AM EDT Office Visit [facility] [address] [place] [address] Akira Khan, 21 [place] [address] 03/25/2024 3:20 PM EDT Office Visit [facility] [address] [facility], [place] [phone] Luzma Yu MD [address] [facility], [place] [address] 03/29/2024 7:40 AM EDT Hospital Encounter OR [facility], Operating Room, [facility] - 4th Floor [address] [place] [address] Akira Khan, 21 [place] [address] 03/29/2024 7:40 AM EDT - 03/29/2024 8:30 AM EDT Surgery OR [facility], Operating Room, [facility] - 4th Floor [address] [place] [address] Akira Khan, 21 [place] [id number] LEFT EXTRACAPSULAR CATARACT REMOVAL WITH INTRAOCULAR LENS 03/30/2024 7:45 AM EDT Office Visit [place] [address] Akira Khan, 21 [place] [address] 04/04/2024 8:30 AM EDT Office Visit [place] [address] Akira Khan, 21 [place] [id number] 04/29/2024 1:45 PM EDT Office Visit [place] [address] Akira Khan, [address] [place] [address] Scheduled Orders Name Type Priority Associated Diagnoses Orde r Schedule PTH Lab Routine Stage 3a chronic kidney disease (HCC) Expected: 12/01/2023 (Approximate), Expires: 05/29/2024 RENAL FUNCTION PANEL Lab Routine Stage 3a chronic kidney disease (HCC) Expected: 12/01/2023 (Approximate), Expires: 05/29/2024 PROTEIN/ CREATININE RATIO, URINE Lab Routine Stage 3a chronic kidney disease (HCC) Expected: 12/01/2023 (Approximate), Expires: 05/29/2024 HGB Lab Routine Stage 3a chronic kidney disease (HCC) Expected: 12/01/2023 (Approximate), Expires: 05/29/2024 Scheduled Procedures Name Priority Associated Diagnoses Date/Ti me EXTRACAPSULAR CATARACT REMOVAL WITH INTRAOCULAR LENS Combined forms of age-related cataract of both eyes 03/01/2024 10:24 AM EDT EXTRACAPSULAR CATARACT REMOVAL WITH INTRAOCULAR [...] Additional history exists CKD HGB USE SMARTSET 36814 06/08/202406/08, 06/08/2023, 03/21/2023, Additional history exists CKD PHOS USE SMARTSET 31642 06/08/2024 12/0 10/2022, 02/23/2023, 05/09/2022 HbA1c 06/08/2024 06/08/2023, 05/0 07/2022, 01/14/2022 TSH 06/08/2024 06/08/2023, 05/0 07/2022, 01/14/2022, Additional history exists DXA Scan 07/27/2025 07/27/2023 DTaP,Tdap,and Td Vaccines (2 - Td or Tdap) 10/31/2032 10/31/2022 Pneumococcal Vaccine: 65+ Years Completed 05/09/2022 VITAMIN D LEVEL ONCE IN A LIFETIME-USE SMARTSET# [id number] Completed 11/03/2022, 05/09/2022 Influenza Vaccine (FLU shot) [...] Not on filedocumented as of this encounter Visit Diagnoses Diagnosis Combined forms of age-related cataract of both eyes- Primary Other and combined forms of senile cataract Stage 3a chronic kidney disease (HCC)- Primary HTN, goal below 140/90 Unspecified essential hypertension Screening mammogram for breast cancer Combined forms of age-related cataract of both eyes Other and combined forms of senile cataract Cataract Unspecified cataract documented in this encounter Care Teams Body Engineer Relationship Specialty Start Date End Date Luzma Yu MD [address] [place] [address] PCP - General Family Medicine 04/05/21 documented as of this encounter"
--- OUTSIDE RECORDS SUMMARY | 2024-02-22 01:41 | External Medical Summary | Summary of Care ---
Author Name Unknown Organization [facility] Address [address] [facility] [place] [address] Phone [phone] Care Team Providers Care Replenishment Merchandising Associate Name Role Phone Travon Yu MD Primary Care Provid er Reason for Visit * Reason Onset Date Comments Medication Refill 12/02/2023 Encounter Details Date Type Department Care Team (Late st Contact Info) Description 12/02/2023 Refill [facility] [address] [place] [address] Travon Yu MD [address] [place] [address] Chronic low back pain without sciatica, unspecified back pain laterality Allergies Active Allergy Reactions Criticality Noted Date Comments Adhesive Tape 01/22/2001 local skin reaction Wound Dressings 05/13/2022 Other reaction(s): Skin irritation Aspirin 04/05/2021 Other reaction(s): Stomach upset Latex Hives 04/05/2021 Penicillins 10/13/2003 hives documented as of this encounter (statuses as of 12/04/2023) Medications Medication Sig Dispensed Refills Start Date [...] can use tramadol. 30 Tablet 12/04/2023 Active traMADol HCl 50 MG Oral Tablet (Ultram)Indications :Chronic low back pain without sciatica, unspecified back pain laterality Take 1 Tablet by mouth daily as needed for Pain, Severe. Take 1000mg tylenol every 6-8 hours first. If no improvement in pain, then can use tramadol. 30 Tablet 09/24/2023 Discontinu ed(Refill) documented as of this encounter (statuses as of 12/04/2023) Active Problems Problem Noted Date Diagnosed Date [...] as of this encounter (statuses as of 12/04/2023) Resolved Problems Problem Noted Date Diagnosed Date Resolved Date Unstable angina 05/18/2023 09/22/2023 Abnormal mammogram 10/03/2002 4 Chemical dermatitis 10/30/19 04 documented as of this encounter (statuses as of 12/04/2023) Immunizations Name Administration Dates Next Due COVID-19 [...] encounter Miscellaneous Notes * Telephone Encounter - Travon Yu MD - 12/04/2023 8:19 AM EDT Signed Prescriptions: Disp Refills traMADol HCl 50 MG Oral Tablet (Ultram) 30 Tab*0 Sig: Take 1 Tablet by mouth daily as needed for Pain, Severe. Take 1000mg tylenol every 6-8 hours first. If no improvement in pain, then can use tramadol. Authorizing Provider: TRAVON YU -- * Telephone Encounter - Travon Yu MD - 12/04/2023 8:19 AM EDT Signed Prescriptions: Disp Refills traMADol HCl 50 MG Oral Tablet (Ultram) 30 Tab*0 Sig: Take 1 Tablet by mouth daily as needed for Pain, Severe. Take 1000mg tylenol every 6-8 hours first. If no improvement in pain, then can use tramadol. Authorizing Provider: TRAVON YU -- * Telephone Encounter - Keyonna Irving CPhT - 12/03/2023 4:09 PM EDT Pt calling to check on status of rx. Pt is out of rx. Caller can be reached at [phone]. Thank you, Keyonna Irving Small Parts Shaper Operator [facility] ([facility]) (Formerly Telepharmacy) 12/03/2023,4:09 PM * Telephone Encounter - Collette Madrigal PHARM Tech - 12/03/2023 3:17 PM EDT Pt calling to check on status of rx. Pt is out of rx. Caller can be reached at [phone]. Thanks, Collette Madrigal Small Parts Shaper Operator [facility] ([facility]) 12/03/2023,3:17 PM * Telephone Encounter - Layla Diaz [facility] - 12/02/2023 12:02 PM EDTPending Prescriptions: Disp Refills traMADol HCl 50 MG Oral Tablet (Ultram) 30 Tab*0 Sig: Take 1 Tablet by mouth daily as needed for Pain, Severe. Take 1000mg tylenol every 6-8 hours first. If no improvement in pain, then can use tramadol. * Telephone Encounter - Layla Diaz [facility] - 12/02/2023 12:02 PM EDT I have reviewed the patients controlled substance dispensing history in the Prescription Drug Monitoring Program in compliance with the [facility] regulations before prescribing a controlled substance. PDMP checked on 12/02/2023. Pending Prescriptions: Disp Refills traMADol HCl 50 MG Oral Tablet (Ultram) 30 Tab*0 Sig: Take 1 Tablet by mouth daily as needed for Pain, Severe. Take 1000mg tylenol every 6-8 hours first. If no improvement in pain, then can use tramadol. Last Visit: 09/22/2023 (in office), Visit date not found (telemedicine) Next Visit: 02/24/2024 Date medication was last filled: 09/24/23 Date medication is due for refill: 10/24/23 [facility]: [id number] [address] [place] Is this request for a controlled substance? Yes and Urine Drug Screen was completed Toxicology results: Results for orders placed or performed during the hospital encounter of 08/12/03 TOX SCREEN, URINE Result Value NOTE: + Screening results are presumptive unless specimen is NOTE: retested by a confirmatory method. Contact Toxicology NOTE: Service for information on confirmatory testing. NOTE: + Screening results qualitatively identify drugs listed NOTE: in the L user's manual for the speciment type indicated. Amphetamine NOT DETECTED Barbiturates NOT DETECTED Benzodiazepines NOT DETECTED Cannabinoids NOT DETECTED Cocaine Metabolite NOT DETECTED Morphine / Codeine POSITIVE (A) PCP NOT DETECTED ACETAMINOPHEN, QUAL NOT DETECTED SALICYLATES, QUAL NOT DETECTED DRUGS (HPLC) Sertraline Metab.1 DRUGS (HPLC) MORPHINE Please approve if appropriate. Thank You, Layla Diaz [facility] Clinical Pharmacist [facility] ([facility]) (formerly Telepharmacy) [phone] 12/02/2023, 12:02 PM * Telephone Encounter - Renae Deluca PHARM Tech - 12/02/2023 11:44 AM EDT Pt requesting HIGH PRIORITY due to being out of medication. Did you pend patient's preferred pharmacy and medication before forwarding?yes Pharmacy: [id number] [address] [place] Pending Prescriptions: Disp Refills traMADol HCl 50 MG Oral Tablet (Ultram) 30 Tab*0 Sig: Take 1 Tablet by mouth daily as needed for Pain, Severe. Take 1000mg tylenol every 6-8 hours first. If no improvement in pain, then can use tramadol. Last Visit: 09/22/2023 (in office), Visit date not found (telemedicine) Next Visit: 02/24/2024 If no future appointments scheduled, and last appointment is greater than a year ago, please schedule patient for a follow-up appointment Last date the medication was ordered: 09/24/23 Is this request for a controlled substance?Yes, What was the last refill date 09/24/23 w/ quantity 30 and dosage 50 mg and Urine Drug Screen was completed Urine Drug Screen: Results for orders placed or performed during the hospital encounter of 08/12/03 TOX SCREEN, URINE Result Value NOTE: + Screening results are presumptive unless specimen is NOTE: retested by a confirmatory method. Contact Toxicology NOTE: Service for information on confirmatory testing. NOTE: + Screening results qualitatively identify drugs listed NOTE: in the GML user's manual for the speciment type indicated. Amphetamine NOT DETECTED Barbiturates NOT DETECTED Benzodiazepines NOT DETECTED Cannabinoids NOT DETECTED Cocaine Metabolite NOT DETECTED Morphine / Codeine POSITIVE (A) PCP NOT DETECTED ACETAMINOPHEN, QUAL NOT DETECTED SALICYLATES, QUAL NOT DETECTED DRUGS (HPLC) Sertraline Metab.1 DRUGS (HPLC) MORPHINE Patient Phone Numbers Labs: Lab Results Component Value Date/Time CREAT 1.0 06/08/2023 12:50 PM CREAT 1.12 02/23/2023 12:00 AM CREAT 0.8 11/18/2013 01:13 PM POTASSIUM 4.4 06/08/2023 12:50 PM POTASSIUM 4.6 02/23/2023 12:00 AM POTASSIUM 4.2 11/18/2013 01:13 PM TSH 1.74 06/08/2023 12:50 PM TSH 1.31 08/13/2003 11:00 AM LDLCALC 116 06/08/2023 12:50 PM LDLCALC 180 (HH) 08/13/2003 03:35 AM LDLDIRECT 99 11/03/2022 12:53 PM ALT 17 06/08/2023 12:50 PM ALT 37 11/20/2003 10:11 AM HGBA1C 6.0 (H) 06/08/2023 12:50 PM documented in this encounter Plan of Treatment Upcoming Encounters Date Type Department Care Team (Late st Contact Info) Description 01/29/2024 1:15 PM EDT [facility] [address] [place] [id number] Akira Khan DO [address] [place] [address] [address] Nurse [place] [facility] [address] [place] [address] 02/24/2024 2:00 PM EDT Office Visit [facility] [address] [facility] [phone] Abigail Mejia PA-C [address] [facility] [place] [address] 03/01/2024 10:24 AM EDT Hospital Encounter OR [facility], Operating Room, [facility] - 4th Floor [address] [facility] [place] [address] Akira Khan DO [address] [place] [address] [address] 03/01/2024 10:24 AM EDT - 03/01/2024 11:14 AM EDT Surgery OR [facility], Operating Room, [facility] - 4th Floor [address] [place] [address] Akira Khan, [address] [place] [address] RIGHT EXTRACAPSULAR CATARACT REMOVAL WITH INTRAOCULAR LENS 03/02/2024 8:30 AM EDT Office Visit Ophthalmology, [place] [address] [place] [address] Akira Khan DO [address] [place] [address] 03/09/2024 10:15 AM EDT Office Visit Ophthalmology, [place] [address] [place] [address] [address] Akira Khan DO [address] [place] [address] 03/25/2024 3:20 PM EDT Office Visit [facility] [address] [place] [facility] [place] [address] Travon Yu MD [address] [place] [address] 03/29/2024 7:40 AM EDT Hospital Encounter OR [facility], Operating Room, [facility] - 4th Floor [address] [place] [address] Akira Khan DO [address] [place] [address] 03/29/2024 7:40 AM EDT - 03/29/2024 8:30 AM EDT Surgery OR [facility], Operating Room, [facility] - 4th Floor [address] [place] [address] Akira Khan, DO [address] [place] [address] LEFT EXTRACAPSULAR CATARACT REMOVAL WITH INTRAOCULAR LENS 03/30/2024 7:45 AM EDT Office Visit Ophthalmology, [place] [address] [place] [address] Akira Khan, DO [address] [place] [address] 04/04/2024 8:30 AM EDT Office Visit [place] [address] [place] [address] Akira Khan, DO [address] [place] [address] 04/29/2024 1:45 PM EDT Office Visit Ophthalmology, [place] [address] [place] [address] Akira Khan, DO [address] [place] [address] Scheduled Procedures Name Priority Associated Diagnoses Date/Ti [...] of 2) 2003 COVID-19 Vaccine (3 - 2022- season) 2023 11/06/2020, 09/27/2020 Albumin/Creatinine Ratio 05/20/2023 05/20/2022 Mammogram 11/25/2023 11/24/2022, 06/01/2002 GFR 12/08/2023 06/08/2023, 03/06, 02/23/2023, Additional history exists CKD HGB USE SMARTSET 90765 06/08/202406/08, 06/08/2023, 03/21/2023, Additional history exists CKD PHOS USE SMARTSET 27129 06/08/2024 12/0 10/2022, 02/23/2023, 05/09/2022 HbA1c 06/08/2024 06/08/2023, 05/0 07/2022, 01/14/2022 TSH 06/08/2024 06/08/2023, 05/0 07/2022, 01/14/2022, Additional history exists DXA Scan 07/27/2025 07/27/2023 DTaP,Tdap,and Td Vaccines (2 - Td or Tdap) 10/31/2032 10/31/2022 Pneumococcal Vaccine: 65+ Years Completed 05/09/2022 VITAMIN D LEVEL ONCE IN A LIFETIME-USE SMARTSET# [id number] Completed 11/03/2022, 05/09/2022 Influenza Vaccine (FLU shot) [...] Other and combined forms of senile cataract Chronic low back pain without sciatica, unspecified back pain laterality Combined forms of age-related cataract of both eyes Other and combined forms of senile cataract Cataract Unspecified cataract documented in this encounter Care Teams Replenishment Merchandising Associate Relationship Specialty Start Date End Date Travon Yu MD [address] [place] [address] PCP - General Family Medicine 04/05/21 documented as of this encounter
--- OUTSIDE RECORDS SUMMARY | 2024-02-22 01:41 | External Medical Summary | Summary of Care ---
Author Name Unknown Organization [facility] Address [address] [facility] [place] [address] Phone [phone] Care Team Providers Care Underground Electrician Name Role Phone Luzma Yu MD Primary Care Provid er Encounter Details Date Type Department Care Team (Late st Contact Info) Description 12/04/2023 Orders Only PATIENT PORTAL DO NOT DELETE THIS DEPT USED BY [place] WHE[place]ER [id number] Allergies Active Allergy Reactions Criticality Noted Date [...] taking tablet. 5 Tablet 11 05/18/2023 Active traMADol HCl 50 MG Oral Tablet (Ultram)Indications: Chronic low back pain without sciatica, unspecified back pain laterality Take 1 Tablet by mouth daily as needed for Pain, Severe. Take 1000mg tylenol every 6-8 hours first. If no improvement in pain, then can use tramadol. 30 Tablet 09/24/2023 Active hydroCHLOROthiazide 12.5 MG Oral Tablet Take 1 Tablet by mouth in the morning. 90 Tablet 3 12/01/2023 Active documented as of this encounter (statuses [...] on file documented as of this encounter Plan of Treatment Upcoming Encounters Date Type Department Care Team (Late st Contact Info) Description 01/29/2024 1:15 PM EDT Office Visit Ophthalmology, [place] [address] [address] [address] Akira Khan DO [address] [place] [address] [address] Nurse [place] [facility] [place] [address] 02/24/2024 2:00 PM EDT Office Visit [facility] [address] [place] [phone] Abigail Mejia PA-C [address] [place] [address] 03/01/2024 10:24 AM EDT Hospital Encounter OR [facility], Operating Room, [facility] - 4th Floor [address] [place] [address] Akira Khan DO [address] [place] [address] [address] 03/01/2024 10:24 AM EDT - 03/01/2024 11:14 AM EDT Surgery OR [facility], Operating Room, [facility] - 4th Floor [address] [place] [address] Akira Khan DO [address] [place] [address] RIGHT EXTRACAPSULAR CATARACT REMOVAL WITH INTRAOCULAR LENS 03/02/2024 8:30 AM EDT Office Visit Ophthalmology, [place] [address] [place] [address] Akira Khan, [address] [place] [address] 03/09/2024 10:15 AM EDT Office Visit Ophthalmology, [place] [address] [place] [address] Akira Khan, [address] [place] [address] 03/25/2024 3:20 PM EDT Office Visit [facility] [address] [facility], [place] [address] Luzma Yu MD [address] [place] [address] 03/29/2024 7:40 AM EDT Hospital Encounter OR [facility], Operating Room, [facility] - 4th Floor [address] [place] [address] Akira Khan, [address] [place] [address] 03/29/2024 7:40 AM EDT - 03/29/2024 8:30 AM EDT Surgery OR [facility], Operating Room, [facility] - 4th Floor [address] [place] [address] Akira Khan, [address] [place] [address] LEFT EXTRACAPSULAR CATARACT REMOVAL WITH INTRAOCULAR LENS 03/30/2024 7:45 AM EDT Office Visit Ophthalmology, [place] [address] [place] [address] Akira Khan, [address] [place] [address] 04/04/2024 8:30 AM EDT [place] [facility] [address] [address] Akira Khan, [address] [place] [address] 04/29/2024 1:45 PM EDT Office Visit [place] [address] [place] [address] Akira Khan, [address] [place] [address] Scheduled Procedures Name Priority Associated Diagnoses Date/Ti [...] Additional history exists CKD HGB USE SMARTSET 89238 06/08/202406/08, 06/08/2023, 03/21/2023, Additional history exists CKD PHOS USE SMARTSET 24887 06/08/2024 12/0 10/2022, 02/23/2023, 05/09/2022 HbA1c 06/08/2024 06/08/2023, 05/0 07/2022, 01/14/2022 TSH 06/08/2024 06/08/2023, 05/0 07/2022, 01/14/2022, Additional history exists DXA Scan 07/27/2025 07/27/2023 DTaP,Tdap,and Td Vaccines (2 - Td or Tdap) 10/31/2032 10/31/2022 Pneumococcal Vaccine: 65+ Years Completed 05/09/2022 VITAMIN D LEVEL ONCE IN A LIFETIME-USE SMARTSET# [id number] Completed 11/03/2022, 05/09/2022 Influenza Vaccine (FLU shot) [...] filedocumented as of this encounter Care Teams Underground Electrician Relationship Specialty Start Date End Date Luzma Yu MD [address] [place] [address] PCP - General Family Medicine 04/05/21 documented as of this encounter
--- OUTSIDE RECORDS SUMMARY | 2024-02-22 01:41 | External Medical Summary | Summary of Care ---
Author Name Unknown Organization [facility] Address [address] [facility] [place] [address] Phone [phone] Care Team Providers Care Pediatric Nurse Practitioner Name Role Phone Luzma Yu MD Primary Care Provid er Reason for Visit * Reason Comments pre-op exam Encounter Details Date Type Department Care Team (Late st Contact Info) Description 01/29/2024 1:15 PM EDT Office Visit Ophthalmology, [place] [address] Akira Khan DO [place] [address] Nurse [place] [facility] [place] [address] Combined forms of age-related cataract of both eyes* Allergies Active Allergy Reactions Criticality Noted Date Comments Adhesive Tape 01/22/2001 local skin reaction Wound Dressings 05/13/2022 Other reaction(s): Skin irritation Aspirin 04/05/2021 Other reaction(s): Stomach upset Latex Hives 04/05/2021 Penicillins 10/13/2003 hives documented as of this encounter (statuses as of 01/29/2024) Medications Medication Sig Dispensed Refills Start Date [...] as of this encounter (statuses as of 01/29/2024) Active Problems Problem Noted Date Diagnosed Date [...] as of this encounter (statuses as of 01/29/2024) Resolved Problems Problem Noted Date Diagnosed Date Resolved Date Unstable angina 05/18/2023 09/22/2023 Abnormal mammogram 10/03/2002 4 Chemical dermatitis 10/30/19 04 documented as of this encounter (statuses as of 01/29/2024) Immunizations Name Administration Dates Next Due COVID-19 [...] of this encounter Progress Notes * Akira hKan DO - 01/29/2024 1:15 PM EDT 01/29/24 [...] retinal detachment, bleeding, need for more treatment/surgery, permanent vision loss. Typical postop course discussed and explained [...] Measurements = -2.00 target 9/5 OD [facility] 03/29 OS [facility] IOL interpretation = Biometry (IOL) & topography (if indicated) will be obtained in near futureto determine the intended refractive target for this [...] Description 02/24/2024 2:00 PM EDT Office Visit [facility] [address] [place] [facility] [place] [phone] Abigail Mejia PA-C [address] [place] [address] 03/10/2024 11:18 AM EDT Hospital Encounter OR [facility], Operating Room, [facility] - 4th Floor [address] [place] [address] Akira Khan DO [address] [place] [address] 03/10/2024 11:18 AM EDT - 03/10/2024 12:08 PM EDT Surgery OR [facility], Operating Room, [facility] - 4th Floor [address] [place] [address] Akira Khan DO [address] [place] [address] RIGHT EXTRACAPSULAR CATARACT REMOVAL WITH INTRAOCULAR LENS 03/11/2024 8:15 AM EDT Office Visit Ophthalmology, [place] [address] [address] Akira Khan DO [address] [place] [address] 03/17/2024 8:45 AM EDT Office Visit Ophthalmology, [facility] [address] [facility] [place] [address] Akira Khan DO [address] [place] [address] [address] 03/25/2024 3:20 PM EDT Office Visit [facility] [address] [facility], [place] [address] Luzma Yu MD [address] [facility], [place] [address] 03/29/2024 7:40 AM EDT Hospital Encounter OR [facility], Operating Room, [facility] - 4th Floor [address] [place] [address] Akira Khan DO [address] [place] [address] [address] 03/29/2024 7:40 AM EDT - 03/29/2024 8:30 AM EDT Surgery OR [facility], Operating Room, [facility] - 4th Floor [address] [place] [address] Akira Khan DO [address] [place] [address] [address] LEFT EXTRACAPSULAR CATARACT REMOVAL WITH INTRAOCULAR LENS 03/30/2024 7:45 AM EDT Office Visit [place] [address] [address] Akira Khan DO [address] [place] [address] [address] 04/07/2024 2:45 PM EDT Office Visit Ophthalmology, [facility] [address] [place] [address] Akira Khan, DO [address] [facility] [place] [address] 04/21/2024 3:45 PM EDT Office Visit Ophthalmology, [facility] [address] [place] [address] Akira Khan, DO [address] [facility] [place] [address] Scheduled Procedures Name Priority Associated Diagnoses Date/Ti [...] 2024 05/18/2023, 05/09/2022 CKD HGB USE SMARTSET 17766 06/08/202406/08, 06/08/2023, 03/21/2023, Additional history exists CKD PHOS USE SMARTSET 50409 06/08/2024 12/0 10/2022, 02/23/2023, 05/09/2022 HbA1c 06/08/2024 06/08/2023, 0507/2022, 01/14/2022 TSH 06/08/2024 06/08/2023, 05/0 07/2022, 01/14/2022, Additional history exists DXA Scan 07/27/2025 07/27/2023, 07/27/2023 DTaP,Tdap,and Td Vaccines (2 - Td or Tdap) 10/31/2032 10/31/2022 Pneumococcal Vaccine: 65+ Years Completed 05/09/2022 VITAMIN D LEVEL ONCE IN A LIFETIME-USE SMARTSET# 10878 Completed 11/03/2022, 05/09/2022 *BASELINE EKG FOR HTN [...] Akira Khan DO MEDICINE Performing Organization Address [facility] Co de Phone Number [facility] * IOL MEASUREMENTS, IOL MASTER (01/29/2024) Akira Khan DO OTHER Performing Organization Address [facility] Co de Phone Number [facility] documented [...] cataract documented in this encounter Care Teams Pediatric Nurse Practitioner Relationship Specialty Start Date End Date Luzma Yu MD [address] [place] [address] PCP - General Family Medicine 04/05/21 documented as of this encounter
--- OUTSIDE RECORDS SUMMARY | 2024-02-22 01:42 | External Medical Summary | Summary of Care ---
Author Name Unknown Organization [facility] Address [address] [place] [address] Phone [phone] Care Team Providers Care Online Marketing Specialist Name Role Phone Luzma Yu MD Primary Care Provid er Reason for Visit * Reason Comments Follow Up 4 month return Would like her ears checked, she gets a jab every once in awhile Encounter Details Date Type Department Care Team (Late st Contact Info) Description 09/22/2023 1:20 PM EDT Office Visit [facility] [address] [place] [address] Luzma Yu MD [address] [place] [address] Acquired hypothyroidism*; Impaired mobility; Mild dementia associated with alcoholism, without behavioral disturbance, psychotic disturbance, mood disturbance, or anxiety (HCC); Major depressive disorder, recurrent episode, moderate (HCC); Atrioventricular block, complete (HCC); Alcohol use disorder, severe, in early remission (HCC); Chronic kidney disease, stage 3a (HCC); HTN, goal below 140/90; Ischemic cardiomyopathy; Age-related osteoporosis without current pathological fracture; Screening mammogram for breast cancer; Bilateral impacted cerumen [H61.23]; Encounter for hepatitis C screening test for low risk patient Allergies Active Allergy Reactions Criticality Noted Date Comments Adhesive Tape 01/22/2001 local skin reaction Wound Dressings 05/13/2022 Other reaction(s): Skin irritation Aspirin 04/05/2021 Other reaction(s): Stomach upset Latex Hives 04/05/2021 Penicillins 10/13/2003 hives documented as of this encounter (statuses as of 09/22/2023) Medications Medication Sig Dispensed Refills Start Date End Date Status ECOTRIN LOW STRENGTH 81 MG OR TBECIndications:Atri oventricular block, complete (HCC),Cardiac disease,Generalized anxiety disorder one by mouth daily 0 0 10/19/2003 Active Acetaminophen 500 MG Oral Tablet (Tylenol) Take 1 Tablet by mouth every 6 hours as needed. Take 2 tablets every 8 hours-mild pain/fever 0 Active Nitroglycerin 0.4 MG Sublingual Tablet Sublingual (Nitrostat) Place 1 Tablet under the tongue every 5 minutes as needed for Pain, Chest. 0 Active Vitamin B-1 100 MG Oral TabletIndications:Al cohol use disorder, moderate, in early remission, dependence (HCC) Take by mouth 1 Tablet in the morning. 90 Tablet 3 05/09/2022 Active Atorvastatin Calcium 80 MG Oral Tablet (Lipitor)Indications :Dyslipidemia, goal to be determined,Ischemic cardiomyopathy Take 1 Tablet by mouth in the morning. 90 Tablet 3 10/31/2022 Active Isosorbide Mononitrate ER 120 MG Oral Tablet Extended Release 24 Hour (Imdur)Indications:I schemic cardiomyopathy Take 1 Tablet by mouth in the morning. 90 Tablet 3 10/31/2022 Active Pantoprazole Sodium 40 MG Oral Tablet Delayed Release (Protonix) Take 1 Tablet by mouth in the morning. 0 Active Benzonatate 100 MG Oral Capsule (Tessalon Perles) Take 1 Capsule by mouth 3 times a day as needed for Cough. 0 Active Thiamine HCl 100 MG Oral Tablet (vitamin B-1) 1 Tablet. 0 02/15/2023 Active Solifenacin Succinate 5 MG Oral Tablet (VESIcare)Indication s:Urge incontinence of urine Take 1 Tablet by mouth in the morning. 90 Tablet 3 05/18/2023 Active Levothyroxine Sodium 50 MCG Oral Tablet [...] taking tablet. 5 Tablet 11 05/18/2023 Active Zoster Vac Recomb Adjuvanted 50 MCG/0.5ML Intramuscular Suspension Reconstituted (Shingrix)Indication s:Need for vaccination for zoster Inject 0.5 mL into a large muscle now and repeat dose in 60 to 180 days 1 Each 1 05/18/2023 Active Additional Information Patient not taking.Reported on 09/22/2023 documented as of this encounter (statuses as of 09/22/2023) Active Problems Problem Noted Date Diagnosed Date [...] as of this encounter (statuses as of 09/22/2023) Resolved Problems Problem Noted Date Diagnosed Date Resolved Date Unstable angina 05/18/2023 09/22/2023 Abnormal mammogram 10/03/2002 4 Chemical dermatitis 10/30/19 04 documented as of this encounter (statuses as of 09/22/2023) Immunizations Name Administration Dates Next Due COVID-19 mRNA, LNP-s, No Pre serve, 2-Dose Series (Moderna) 11/06/2020,09/27/2020 Pneumococcal Conjugate Vaccine, 20-valent (Prevn ar20) 05/09/2022 Seasonal Influenza, Quadrivalent Hd (Fluzone Hd) 05/18/2023,05/09/2022 TDAP (age 10 and older)(Boostrix) 10/31/2022 documented as of this encounter Social History Tobacco Use Types Packs/Day Years Used Date Smoking Tobacco: Never Smokeless Tobacco: Never Tobacco Cessation:Counseling Given: Not Answered Alcohol Use Standard Drinks/Week Comments Yes 0 [...] Sign Reading Time Taken Comments Blood Pressure 110/62 09/22/2023 12:59 PM EDT Pulse 78 09/22/2023 12:59 PM EDT Temperature 36.8 C (98.2 F) 09/22/2023 1 2:59 PM EDT Respiratory Rate 17 09/22/2023 12:5 9 PM EDT Oxygen Saturation 95% 09/22/2023 12: 59 PM EDT Inhaled Oxygen Concentration - - Weight 60.7 kg (133 lb 12.8 oz) 024 12:59 PM EDT Height 157.5 cm (5' 2") 09/22/2023 12:5 9 PM EDT Body Mass Index 24.47 09/22/2023 12:59 PM EDT documented in this encounter Progress Notes * Luzma Yu MD - 09/22/2023 1:06 PM EDT ASSESSMENT / PLAN: Codi Painter is a 68 year old female with PMHx h/o alcohol abuse for many years now in remission, ischemic cardiomyopathy / CAD / s/p stenting / biventricular ICD (medtronic) pacemaker / HTN / HLD / osteoporosis / hypothyroid - here for recheck ICM / pacemaker Follows with [facility] Reviewed last visit - no med changes Cont carvedilol / statin / asa / nitro as needed Osteoporosis Cont PO alendronate (started 2020) 2023 Dexa - The present treatment with Fosamax/Alendronate may be helping to maintain bone mineral density. in this patient and should be continued. Repeat in 2025 Hypothyroidism Clinically euthyroid, cont current dose Urge incontinence stable Cont solifenacin MDD Stable Cont zoloft 50mg CKD 3a Stable Prediabetes Stable Cont metformin 500mg bid #Cerumen impaction Patient presenting with cerumen inpaction. Cerumen impaction noted and irrigation was indicated. Cerumen removal completed by nursing by irrigation w/ hydrogen peroxide and H2O. No trauma or complications noted. Memory changes / h/o alcohol abuse Historically decline further testing or imaging for work up of dementia, which is chronic, mild, but progressive over the last few years. Alcohol abuse remains in early remission. trial low dose aricept - DC d while inpatient due to concern for prolonged QT (no cardiac arrhythmia) Follow Up: Return in about 6 months (around 03/24/2024) for Labs 2-5 Days Before Next Visit. | For: Labs 2-5 Days Before Next Visit Acquired hypothyroidism (Primary) - TSH WITH FREE T4 IF INDICATED; Future; Expected date: 03/24/2024 - HEMOGLOBIN A1C; Future; Expected date: 03/24/2024 - COMPREHENSIVE METABOLIC PANEL; Future; Expected date: 03/24/2024 - CBC WITH WBC DIFFERENTIAL AND ANEMIA REFLEX WORKUP; Future; Expected date: 03/24/2024 Impaired mobility - TSH WITH FREE T4 IF INDICATED; Future; Expected date: 03/24/2024 - HEMOGLOBIN A1C; Future; Expected date: 03/24/2024 - COMPREHENSIVE METABOLIC PANEL; Future; Expected date: 03/24/2024 - CBC WITH WBC DIFFERENTIAL AND ANEMIA REFLEX WORKUP; Future; Expected date: 03/24/2024 Mild dementia associated with alcoholism, without behavioral disturbance, psychotic disturbance, mood disturbance, or anxiety (HCC) - TSH WITH FREE T4 IF INDICATED; Future; Expected date: 03/24/2024 - HEMOGLOBIN A1C; Future; Expected date: 03/24/2024 - COMPREHENSIVE METABOLIC PANEL; Future; Expected date: 03/24/2024 - CBC WITH WBC DIFFERENTIAL AND ANEMIA REFLEX WORKUP; Future; Expected date: 03/24/2024 Major depressive disorder, recurrent episode, moderate (HCC) - TSH WITH FREE T4 IF INDICATED; Future; Expected date: 03/24/2024 - HEMOGLOBIN A1C; Future; Expected date: 03/24/2024 - COMPREHENSIVE METABOLIC PANEL; Future; Expected date: 03/24/2024 - CBC WITH WBC DIFFERENTIAL AND ANEMIA REFLEX WORKUP; Future; Expected date: 03/24/2024 Atrioventricular block, complete (HCC) - TSH WITH FREE T4 IF INDICATED; Future; Expected date: 03/24/2024 - HEMOGLOBIN A1C; Future; Expected date: 03/24/2024 - COMPREHENSIVE METABOLIC PANEL; Future; Expected date: 03/24/2024 - CBC WITH WBC DIFFERENTIAL AND ANEMIA REFLEX WORKUP; Future; Expected date: 03/24/2024 Alcohol use disorder, severe, in early remission (HCC) - TSH WITH FREE T4 IF INDICATED; Future; Expected date: 03/24/2024 - HEMOGLOBIN A1C; Future; Expected date: 03/24/2024 - COMPREHENSIVE METABOLIC PANEL; Future; Expected date: 03/24/2024 - CBC WITH WBC DIFFERENTIAL AND ANEMIA REFLEX WORKUP; Future; Expected date: 03/24/2024 Chronic kidney disease, stage 3a (HCC) - TSH WITH FREE T4 IF INDICATED; Future; Expected date: 03/24/2024 - HEMOGLOBIN A1C; Future; Expected date: 03/24/2024 - COMPREHENSIVE METABOLIC PANEL; Future; Expected date: 03/24/2024 - CBC WITH WBC DIFFERENTIAL AND ANEMIA REFLEX WORKUP; Future; Expected date: 03/24/2024 HTN, goal below 140/90 - TSH WITH FREE T4 IF INDICATED; Future; Expected date: 03/24/2024 - HEMOGLOBIN A1C; Future; Expected date: 03/24/2024 - COMPREHENSIVE METABOLIC PANEL; Future; Expected date: 03/24/2024 - CBC WITH WBC DIFFERENTIAL AND ANEMIA REFLEX WORKUP; Future; Expected date: 03/24/2024 Ischemic cardiomyopathy - TSH WITH FREE T4 IF INDICATED; Future; Expected date: 03/24/2024 - HEMOGLOBIN A1C; Future; Expected date: 03/24/2024 - COMPREHENSIVE METABOLIC PANEL; Future; Expected date: 03/24/2024 - CBC WITH WBC DIFFERENTIAL AND ANEMIA REFLEX WORKUP; Future; Expected date: 03/24/2024 Age-related osteoporosis without current pathological fracture - TSH WITH FREE T4 IF INDICATED; Future; Expected date: 03/24/2024 - HEMOGLOBIN A1C; Future; Expected date: 03/24/2024 - COMPREHENSIVE METABOLIC PANEL; Future; Expected date: 03/24/2024 - CBC WITH WBC DIFFERENTIAL AND ANEMIA REFLEX WORKUP; Future; Expected date: 03/24/2024 Screening mammogram for breast cancer - MAMMOGRAM SCREENING BILATERAL; Future; Expected date: 09/23/2023 Bilateral impacted cerumen [H61.23] - NURSE REMOVAL IMPACTED CERUM Encounter for hepatitis C screening test for low risk patient - HEPATITIS C ANTIBODY SCREEN WITH PROGRESSION TO HEPATITIS C RNA QUANTITATIVE; Future; Expected date: 03/24/2024 Follow Up: Return in about 6 months (around 03/24/2024) for Labs 2-5 Days Before Next Visit. | For: Labs 2-5 Days Before Next Visit If needed, prefers contact by: Ok to leave message on phone: SUBJECTIVE: Nursing Notes: Katy Meraz LPN 09/22/23 1304 Signed The patient has been properly identified by confirmation of name and date of . Chief Complaint Patient presents with Follow Up 4 month return Would like her ears checked, she gets a jab every once in awhile HPI: Codi Painter is a 68 year old female. Here for recheck. 09/04/23 - was evaluated in the ER for a period of unresponsiveness - sent by PCP office (she was present at her 's appt, and had experienced the episode while waiting with him in the exam room - EMS was called) - ER note reviewed - telemetry unremarkable - normal WBC, COMP, normal trop, normal TSH, CXR wnl, CT head wo con nonacute, UA neg. Given that her work up was reassuring and she appeared to be completely recovered from the incident, decision was made to discharge home. 09/07/23 seen by her cook manager - biventricular ICD was interrogated and everything was stable, no aberrant rhythms noted. Pt endorses low energy - x last few months Appetite is good - skips breakfast typically, will eat lunch and snacks (banana, chips, cake), dinner is usually beef / noodles / hoagies / grill Drinks water - trying to increase hydration Drinks 2 pepsi's and also sugared iced tea x 2-3 cups Unknown if she snores Reviewed sources 1- Last labs show blood sugar to goal, and lipids Stable kidney function, normal liver function Latest Reference Range & Units 06/08/23 12:50 Triglycerides <=174 mg/dL 179 (H) Cholesterol <200 mg/dL 195 Non-HDL Cholesterol <=159 mg/dL 152 HDL Cholesterol >49 mg/dL 43 (L) LDL Cholesterol <=129 mg/dL 116 Sodium 135 - 146 mmol/L 140 Potassium 3.5 - 5.1 mmol/L 4.4 Chloride 98 - 107 mmol/L 106 CO2 22 - 32 mmol/L 25 BUN 6 - 20 mg/dL 22 (H) Creatinine 0.5 - 1.0 mg/dL 1.0 Estimated Glomerular Filtration Rate >=60 mL/min 62 Anion Gap 7 - 15 mmol/L 9 Glucose 70 - 120 mg/dL 115 Calcium 8.4 - 10.2 mg/dL 9.2 Magnesium 1.5 - 2.6 mg/dL 2.1 Phosphorus 2.5 - 4.8 mg/dL 3.4 Protein 6.0 - 8.3 g/dL 6.8 Estimated Average Glucose <126 mg/dL 126 (H) Hemoglobin A1C 4.0 - 5.6 % 6.0 (H) TSH 0.27 - 4.20 uIU/mL 1.74 TSH WITH FREE T4 IF INDICATED Rpt WBC 4.00 - 10.80 K/uL 5.12 RBC 3.85 - 5.15 M/uL 4.32 HGB 12.0 - 15.3 g/dL 11.8 (L) HCT 36.0 - 45.2 % 38.3 MCV 81.5 - 97.5 fL 88.7 MCH 27.0 - 34.0 pg 27.3 MCHC 32.0 - 36.0 g/dL 30.8 RDW 11.5 - 15.5 % 14.0 PLT 140 - 400 K/uL 159 MPV 6.6 - 11.1 fL 12.0 ANEMIA CBC Rpt ! Absolute Neutrophils 1.80 - 7.70 K/uL 3.29 Absolute Lymphocytes 1.00 - 4.80 K/ul 1.25 Absolute Monocytes 0.00 - 1.10 K/uL 0.30 Absolute Eosinophils 0.00 - 0.70 K/uL 0.22 Absolute Basophils 0.00 - 0.20 K/uL 0.04 IRON SCREEN, INCLUDING TIBC Rpt Iron 33 - 151 ug/dL 94 Iron Binding Capacity 250 - 425 ug/dL 312 Transferrin Saturation Percent 15 - 55 % 30 Ferritin 13 - 150 ng/mL 212 (H) Immature Reticuloctye Fraction 2.5 - 20.6 % 12.8 Reticulocyte Hemoglobin 29.7 - 37.4 pg 31.8 Absolute Reticulocyte 31.3 - 100.1 K/uL 58.3 Reticulocyte Percent 0.80 - 1.90 % 1.36 Albumin 3.8 - 5.0 g/dL 4.3 AST 10 - 35 U/L 23 ALT 10 - 35 U/L 17 Alkaline Phosphatase 35 - 130 U/L 70 Bilirubin, Total <=1.2 mg/dL 0.5 (H): Data is abnormally high (L): Data is abnormally low !: Data is abnormal Rpt: View report in Results Review for more information Patient Active Problem List Diagnosis Code GENERALIZED ANXIETY DIS F41.1 FEM STRESS INCONTINENCE N39.3 BENIGN HYPERTENSION I10 Menopause Z78.0 Atrioventricular block, complete (HCC) I44.2 Cardiac pacemaker in situ Z95.0 Cardiac disease I51.9 ALCOHOL ABUSE-CONTINUOUS F10.10 Paroxysmal ventricular tachycardia (HCC) I47.29 Dyslipidemia, goal to be determined E78.5 Venous insufficiency I87.2 OVERWEIGHT E66.9 ABN LIVER FUNCTION STUDY R94.5 SKIN SENSATION DISTURB R20.9 ACUTE STRESS F43.89 Major depressive disorder, recurrent episode, moderate ([facility]) F33.1 Dermatitis L30.9 Mass of chest wall R22.2 Scalp psoriasis 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 Skin exam, screening for cancer Z12.83 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 Impaired mobility Z74.09 Pain of lumbar spine M54.50 HTN, goal below 140/90 I10 H/O heart artery stent Z95.5 Ischemic cardiomyopathy I25.5 Transient atrial fibrillation ([facility]) I48.91 Hypothyroidism E03.9 Osteoporosis M81.0 H/O alcohol dependence ([facility]) F10.21 Chronic kidney disease, stage 3a ([facility]) N18.31 Prediabetes R73.03 Generalized osteoarthritis M15.9 Urge incontinence of urine N39.41 Mild dementia associated with alcoholism, without behavioral disturbance, psychotic disturbance, mood disturbance, or anxiety ([facility]) F10.97 Alcohol use disorder, severe, in early remission ([facility]) F10.21 ICD (implantable cardioverter-defibrillator), biventricular, in situ Z95.810 UGIB (upper gastrointestinal bleed) K92.2 Pneumonia J18.9 Mixed hearing loss, bilateral H90.6 Fracture of L1 vertebra ([facility]) S32.019A Fatigue R53.83 Esophageal dysphagia R13.19 Combined forms of age-related cataract of both eyes H25.813 Current Outpatient Medications Medication Sig Dispense Refill ECOTRIN LOW STRENGTH 81 MG OR TBEC one by mouth daily 0 0 Acetaminophen 500 MG Oral Tablet (Tylenol) Take 1 Tablet by mouth every 6 hours as needed. Take 2 tablets every 8 hours-mild pain/fever Nitroglycerin 0.4 MG Sublingual Tablet Sublingual (Nitrostat) Place 1 Tablet under the tongue every5 minutes as needed for Pain, Chest. Vitamin B-1 100 MG Oral Tablet Take by mouth 1 Tablet in the morning. 90 Tablet 3 Atorvastatin Calcium 80 MG Oral Tablet (Lipitor) Take 1 Tablet by mouth in the morning. 90 Tablet 3 Isosorbide Mononitrate ER 120 MG Oral Tablet Extended Release 24 Hour (Imdur) Take 1 Tablet by mouth in the morning. 90 Tablet 3 Pantoprazole Sodium 40 MG Oral Tablet Delayed Release (Protonix) Take 1 Tablet by mouth in the morning. Benzonatate 100 MG Oral Capsule (Tessalon Perles) Take 1 Capsule by mouth 3 times a day as needed for Cough. Thiamine HCl 100 MG Oral Tablet (vitamin B-1) 1 Tablet. Solifenacin Succinate 5 MG Oral Tablet (VESIcare) [...] min after taking tablet. 5 Tablet 11 Zoster Vac Recomb Adjuvanted 50 MCG/0.5ML Intramuscular Suspension Reconstituted (Shingrix) Inject 0.5 mL into a large muscle now and repeat dose in 60 to 180 days (Patient not taking: Reported on 09/22/2023) 1 Each 1 No current facility-administered medications for this visit. OBJECTIVE: BP 110/62 | Pulse 78 | Temp 36.8 C (98.2 F) | Resp 17 | Ht 1.575 m (5' 2") | Wt 60.7 kg (133 lb12.8 oz) | LMP 12/22/2001 | SpO2 95% | BMI 24.47 kg/m | BSA 1.63 m Vitals reviewed and is normotensive / afebrile / and not tachycardic General: No acute distress. Neuro: Alert Pleasant & interactive. Respiratory: Good inspiratory effort, no labored breathing. CTAB CV: RRR no M R G HEENT: Conjunctivae appear clear. No swelling noted face or lips. TM s with cerumen impaction b/l -after irrigation, LT is improved and TM is in tact. Skin: No rash visible on exposed skin areas, normal coloration & appears dry. Psych: Normal affect. Fluent speech. I spent a total of 40-54 minutes (exact time 40 mins) on the date of service in preparation, delivery, and documentation of the care provided to Codi Painter excluding any time spent in the performance of separately billed services. Luzma Yu MD [place] [address] [facility] [place] [address] There are no Patient Instructions on file for this visit. documented in this encounter Nursing Notes * Katy Meraz LPN - 09/22/2023 1:04 PM EDT The patient has been properly identified by confirmation of name and date of . Chief Complaint Patient presents with Follow Up 4 month return Would like her ears checked, she gets a jab every once in awhile documented in this encounter Plan of Treatment Upcoming Encounters Date Type Department Care Team (Late st Contact Info) Description 12/01/2023 2:00 PM EDT Office Visit Nephrology, [facility] [address] [place] [address] Franko Dietrich MD [address] [facility] [place] [address] 01/29/2024 1:15 PM EDT Office Visit Ophthalmology, [place] [address] [address] Akira Khan DO [address] [address] Nurse [facility] [address] [address] 03/25/2024 3:20 PM EDT Office Visit [place] [address] [facility] [place] [address] Luzma Yu MD [address] [place] [facility] [place] [address] Scheduled Orders Name Type Priority Associated Diagnoses Orde r Schedule TSH WITH FREE T4 IF INDICATED Lab Routine Impaired mobility Mild dementia associated with alcoholism, without behavioral disturbance, psychotic disturbance, mood disturbance, or anxiety (HCC) Major depressive disorder, recurrent episode, moderate (HCC) Atrioventricular block, complete (HCC) Alcohol use disorder, severe, in early remission (HCC) Chronic kidney disease, stage 3a (HCC) HTN, goal below 140/90 Ischemic cardiomyopathy Acquired hypothyroidism Age-related osteoporosis without current pathological fracture Expected: 03/24/2024 (Approximate), Expires: 10/22/2024 HEMOGLOBIN A1C Lab Routine Impaired mobility Mild dementia associated with alcoholism, without behavioral disturbance, psychotic disturbance, mood disturbance, or anxiety (HCC) Major depressive disorder, recurrent episode, moderate (HCC) Atrioventricular block, complete (HCC) Alcohol use disorder, severe, in early remission (HCC) Chronic kidney disease, stage 3a (HCC) HTN, goal below 140/90 Ischemic cardiomyopathy Acquired hypothyroidism Age-related osteoporosis without current pathological fracture Expected: 03/24/2024 (Approximate), Expires: 10/22/2024 COMPREHENSIVE METABOLIC PANEL Lab Routine Impaired mobility Mild dementia associated with alcoholism, without behavioral disturbance, psychotic disturbance, mood disturbance, or anxiety (HCC) Major depressive disorder, recurrent episode, moderate (HCC) Atrioventricular block, complete (HCC) Alcohol use disorder, severe, in early remission (HCC) Chronic kidney disease, stage 3a (HCC) HTN, goal below 140/90 Ischemic cardiomyopathy Acquired hypothyroidism Age-related osteoporosis without current pathological fracture Expected: 03/24/2024 (Approximate), Expires: 10/22/2024 CBC WITH WBC DIFFERENTIAL AND ANEMIA REFLEX WORKUP Lab Routine Impaired mobility Mild dementia associated with alcoholism, without behavioral disturbance, psychotic disturbance, mood disturbance, or anxiety (HCC) Major depressive disorder, recurrent episode, moderate (HCC) Atrioventricular block, complete (HCC) Alcohol use disorder, severe, in early remission (HCC) Chronic kidney disease, stage 3a (HCC) HTN, goal below 140/90 Ischemic cardiomyopathy Acquired hypothyroidism Age-related osteoporosis without current pathological fracture Expected: 03/24/2024 (Approximate), Expires: 10/22/2024 MAMMOGRAM SCREENING BILATERAL Medical Imaging Routine Screening mammogram for breast cancer Expected: 09/23/2023 (Approximate), Expires: 10/22/2024 NURSE REMOVAL IMPACTED CERUM Procedures Routine Bilateral impacted cerumen [H61.23] Ordered: 09/22/2023 HEPATITIS C ANTIBODY SCREEN WITH PROGRESSION TO HEPATITIS C RNA QUANTITATIVE Lab Routine Encounter for hepatitis C screening test for low risk patient Expected: 03/24/2024 (Approximate), Expires: 09/21/2024 Scheduled Procedures Name Priority Associated Diagnoses Date/Ti me EXTRACAPSULAR CATARACT REMOV AL WITH INTRAOCULAR LENS Combined forms of age-related cataract of both eyes Health Maintenance Due Date Last Done Comments Depression Screening 1965 Hepatitis C Screening 1971 Cologuard 1998 Colonoscopy 1998 Colorectal Cancer Screening 1998 Fecal Occult Blood Test 1998 Sigmoidoscopy 1998 Zoster Vaccines (1 of 2) 2003 COVID-19 Vaccine ( season) 2023 11/06/2020, 09/27/2020 Albumin/Creatinine Ratio 05/20/2023 05/20/2022 Mammogram 11/25/2023 11/24/2022, 06/01/2002 GFR 12/08/2023 06/08/2023, 03/06, 02/23/2023, Additional history exists CKD HGB USE SMARTSET 39175 06/08/202406/08, 06/08/2023, 03/21/2023, Additional history exists CKD PHOS USE SMARTSET [id number] 06/08/2024 12/0 10/2022, 02/23/2023, 05/09/2022 HbA1c 06/08/2024 06/08/2023, 05/0 07/2022, 01/14/2022 TSH 06/08/2024 06/08/2023, 05/0 07/2022, 01/14/2022, Additional history exists DXA Scan 07/27/2025 07/27/2023 DTaP,Tdap,and Td Vaccines (2 - Td or Tdap) 10/31/2032 10/31/2022 Pneumococcal Vaccine: 65+ Years Completed 05/09/2022 VITAMIN D LEVEL ONCE IN A LIFETIME-USE SMARTSET# [id number] Completed 11/03/2022, 05/09/2022 Influenza Vaccine (FLU shot) [...] as of this encounter Visit Diagnoses Diagnosis Acquired hypothyroidism- Primary Unspecified hypothyroidism Impaired mobility Other ill-defined conditions Mild dementia associated with alcoholism, without behavioral disturbance, psychotic disturbance, mood disturbance, or anxiety (HCC) Major depressive disorder, recurrent episode, moderate (HCC) Major depressive disorder, recurrent episode, moderate Atrioventricular block, complete (HCC) Atrioventricular block, complete Alcohol use disorder, severe, in early remission (HCC) Chronic kidney disease, stage 3a (HCC) HTN, goal below 140/90 Unspecified essential hypertension Ischemic cardiomyopathy Other specified forms of chronic ischemic heart disease Age-related osteoporosis without current pathological fracture Senile osteoporosis Screening mammogram for breast cancer Bilateral impacted cerumen [H61.23] Impacted cerumen Encounter for hepatitis C screening test for low risk patient documented in this encounter Care Teams Online Marketing Specialist Relationship Specialty Start Date End Date Luzma Yu MD [address] [place] [address] PCP - General Family Medicine 04/05/21 documented as of this encounter
--- OUTSIDE RECORDS SUMMARY | 2024-02-22 01:42 | External Medical Summary | Summary of Care ---
Author Name Unknown Organization [facility] Address [address] [facility] [place] [address] Phone [phone] Care Team Providers Care Currency Examiner Name Role Phone Luzma Yu MD Primary Care Provid er Reason for Visit * Reason Onset Date Comments Advice 09/22/2023 Back Pain Encounter Details Date Type Department Care Team (Late st Contact Info) Description 09/22/2023 Telephone [facility] [address] [place] [address] Luzma Yu MD [address] [place] [address] Advice (Back Pain) Allergies Active Allergy Reactions Criticality Noted Date Comments Adhesive Tape 01/22/2001 local skin reaction Wound Dressings 05/13/2022 Other reaction(s): Skin irritation Aspirin 04/05/2021 Other reaction(s): Stomach upset Latex Hives 04/05/2021 Penicillins 10/13/2003 hives documented as of this encounter (statuses as of 09/24/2023) Medications Medication Sig Dispensed Refills Start Date [...] Additional Information Patient not taking.Reported on 09/22/2023 traMADol HCl 50 MG Oral Tablet (Ultram)Indications: Chronic low back pain without sciatica, unspecified back pain laterality Take 1 Tablet by mouth daily as needed for Pain, Severe. Take 1000mg tylenol every 6-8 hours first. If no improvement in pain, then can use tramadol. 30 Tablet 0 09/24/2023 Active Lidocaine 5 % External Patch (Lidoderm)Indication s:Chronic low back pain without sciatica, unspecified back pain laterality Place 1 Patch over 12 hours topically on the skin daily. For back pain. 30 Patch 5 09/24/2023 Active documented as of this encounter (statuses as of 09/24/2023) Active Problems Problem Noted Date Diagnosed Date [...] as of this encounter (statuses as of 09/24/2023) Resolved Problems Problem Noted Date Diagnosed Date Resolved Date Unstable angina 05/18/2023 09/22/2023 Abnormal mammogram 10/03/2002 4 Chemical dermatitis 10/30/19 04 documented as of this encounter (statuses as of 09/24/2023) Immunizations Name Administration Dates Next Due COVID-19 [...] encounter Miscellaneous Notes * Telephone Encounter - Luzma Yu MD - 09/24/2023 3:00 PM EDT Please call pt back Please come to the front office clerk to sign a medical record release form so that my office can reach outto your surgeon for his last notes. I would like to know more about your back pain. 1- you can take 1000mg tylenol every 6-8 hours as needed for pain. 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 (This has also been sent to your pharmacy) 4- call me in 1 month to update me how your back pain is doing AG * Telephone Encounter - Arlene Candelaria LPN - 09/24/2023 2:31 PM EDT I called the patient to discuss the back pain: Patient states that she is having constant back painthat is at times a 9/10. Patient states the pain has been off and on since her back surgery and sheis frustrated because she was told she would not have pain after the surgery. Patient states at times the pain radiates down her legs. Patient states she has been taking tylenol to help weaken the collins n. * Telephone Encounter - Lakesha Araujo OSA - 09/22/2023 5:27 PM EDT Pt calling stating she forgot to mention during her appt today 09/22/23 that she has been having back pain. Pt states she had back surgery several months ago. Pt would like to speak to pcp regarding this. Please call pt. documented in this encounter Plan of Treatment Upcoming Encounters Date Type Department Care Team (Late st Contact Info) Description 12/01/2023 2:00 PM EDT Office Visit Nephrology, [facility] [address] [facility] [place], [place] [address] Franko Dietrich MD [address] [facility] [place], [place] [address] 01/29/2024 1:15 PM EDT Office Visit Ophthalmology, [place] [address] [facility] [place] [address] Akira Khan DO [address] [facility] [place] [address] Nurse [place] [facility] [place] [address] 03/25/2024 3:20 PM EDT Office Visit [facility] [address] [place] [address] Luzma Yu MD [address] [place] [address] Scheduled Procedures Name Priority Associated Diagnoses Date/Ti [...] Additional history exists CKD HGB USE SMARTSET 64701 06/08/202406/08, 06/08/2023, 03/21/2023, Additional history exists CKD PHOS USE SMARTSET 53403 06/08/2024 12/0 10/2022, 02/23/2023, 05/09/2022 HbA1c 06/08/2024 06/08/2023, 05/0 07/2022, 01/14/2022 TSH 06/08/2024 06/08/2023, 05/0 07/2022, 01/14/2022, Additional history exists DXA Scan 07/27/2025 07/27/2023 DTaP,Tdap,and Td Vaccines (2 - Td or Tdap) 10/31/2032 10/31/2022 Pneumococcal Vaccine: 65+ Years Completed 05/09/2022 VITAMIN D LEVEL ONCE IN A LIFETIME-USE SMARTSET# [id number] Completed 11/03/2022, 05/09/2022 Influenza Vaccine (FLU shot) [...] as of this encounter Visit Diagnoses Diagnosis Chronic low back pain without sciatica, unspecified back pain laterality- Primary documented in this encounter Care Teams Currency Examiner Relationship Specialty Start Date End Date Luzma Yu MD [address] [place] [address] PCP - General Family Medicine 04/05/21 documented as of this encounter
--- OUTSIDE RECORDS SUMMARY | 2024-02-22 01:42 | External Medical Summary | Summary of Care ---
Author Name Unknown Organization [facility] Address [address] [facility] [place] [address] Phone [phone] Care Team Providers Care Truck Dock Material Mover Name Role Phone Luzma Yu MD Primary Care Provid er Reason for Visit * Reason Onset Date Comments Pre Cert/Prior Auth 09/29/2023 Lidocaine Encounter Details Date Type Department Care Team (Late st Contact Info) Description 09/29/2023 Telephone [facility] [address] [place] [address] Luzma Yu MD [address] [place] [address] Pre Cert/Prior Auth (Lidocaine) Allergies Active Allergy Reactions Criticality Noted Date Comments Adhesive Tape 01/22/2001 local skin reaction Wound Dressings 05/13/2022 Other reaction(s): Skin irritation Aspirin 04/05/2021 Other reaction(s): Stomach upset Latex Hives 04/05/2021 Penicillins 10/13/2003 hives documented as of this encounter (statuses as of 10/02/2023) Medications Medication Sig Dispensed Refills Start Date [...] as of this encounter (statuses as of 10/02/2023) Active Problems Problem Noted Date Diagnosed Date [...] as of this encounter (statuses as of 10/02/2023) Resolved Problems Problem Noted Date Diagnosed Date Resolved Date Unstable angina 05/18/2023 09/22/2023 Abnormal mammogram 10/03/2002 4 Chemical dermatitis 10/30/19 04 documented as of this encounter (statuses as of 10/02/2023) Immunizations Name Administration Dates Next Due COVID-19 [...] encounter Miscellaneous Notes * Telephone Encounter - Aracely Grant sr. payroll manager - 10/02/2023 8:36 AM EDT Patients insurance would like to inform the office that Lidocaine 5% patch is denied because no medical record documentation of post herpetic neuralgia. They will fax this info to the office, please review and resubmit if appropriate. Thank you, Aracely Grant, Dance Hall Hostess [facility] Services ([facility]PS) (Formerly Telepharmacy) 10/02/2023,8:36 AM * Telephone Encounter - Katy Meraz LPN - 10/01/2023 4:02 PM EDT Paperwork was faxed * Telephone Encounter - Jackie Gonzalez CPhT - 09/30/2023 2:27 PM EDT Patients insurance would like to inform the office that Lidocaine patch is requiring additional information: Diagnosis of post herpetic neuralgia. Prior authorization entered in [employer] at [employer] [facility]#[id number] Please fax to [phone] before tomorrow@12PM. Thank you, Jackie Gonzalez CPhT Dance Hall Hostess Director Of Student Financial Services Centralized Clinical Pharmacy Services (CCPS) (Formerly Telepharmacy) 09/30/2023,2:27 PM * Telephone Encounter - Katy Meraz LPN - 09/29/2023 1:18 PM EDT Prior Authorization for Lidocaine 5% external patch was sent via [employer]. Access vega is [id number] documented in this encounter Plan of Treatment Upcoming Encounters Date Type Department Care Team (Late st Contact Info) Description 12/01/2023 2:00 PM EDT [facility] [address] [place], [place] [id number] Franko Dietrich MD [address] [facility] [place] [address] 01/29/2024 1:15 PM EDT Office Visit Ophthalmology, [place] [address] [place] [address] Nurse [place] [address] 03/25/2024 3:20 PM EDT Office Visit [facility] [address] [place] [phone] Luzma Yu MD [address], [place] [id number] Scheduled Procedures Name Priority Associated Diagnoses Date/Ti [...] Additional history exists CKD HGB USE SMARTSET 42442 06/08/202406/08, 06/08/2023, 03/21/2023, Additional history exists CKD PHOS USE SMARTSET 41707 06/08/2024 1210/2022, 02/23/2023, 05/09/2022 HbA1c 06/08/2024 06/08/2023, 050 07/2022, 01/14/2022 TSH 06/08/2024 06/08/2023, 050 07/2022, 01/14/2022, Additional history exists DXA Scan 07/27/2025 07/27/2023 DTaP,Tdap,and Td Vaccines (2 - Td or Tdap) 10/31/2032 10/31/2022 Pneumococcal Vaccine: 65+ Years Completed 05/09/2022 VITAMIN D LEVEL ONCE IN A LIFETIME-USE SMARTSET# [id number] Completed 11/03/2022, 05/09/2022 Influenza Vaccine (FLU shot) [...] filedocumented as of this encounter Care Teams Truck Dock Material Mover Relationship Specialty Start Date End Date Luzma Yu MD [address] [place] [address] PCP - General Family Medicine 04/05/21 documented as of this encounter
--- OUTSIDE RECORDS SUMMARY | 2024-02-22 01:42 | External Medical Summary | Summary of Care ---
Author Name Unknown Organization [facility] Address [address] [facility] [place] [address] Phone [phone] Care Team Providers Care Aluminum Pool Installer Name Role Phone Luzma Yu MD Primary Care Provid er Encounter Details Date Type Department Care Team (Late st Contact Info) Description 09/21/2023 [facility]phone [facility] [place] [address] Akira Khan DO [address] [facility] [place] [address] Allergies Active Allergy Reactions Criticality Noted Date Comments Adhesive Tape 01/22/2001 local skin reaction Wound Dressings 05/13/2022 Other reaction(s): Skin irritation Aspirin 04/05/2021 Other reaction(s): Stomach upset Latex Hives 04/05/2021 Penicillins 10/13/2003 hives documented as of this encounter (statuses as of 09/21/2023) Medications Medication Sig Dispensed Refills Start Date [...] 0 Active Vitamin B-1 100 MG Oral TabletIndications:Alc ohol use disorder, moderate, in early remission, dependence [...] Active Solifenacin Succinate 5 MG Oral Tablet (VESIcare)Indications :Urge incontinence of urine Take 1 Tablet by [...] Recomb Adjuvanted 50 MCG/0.5ML Intramuscular Suspension Reconstituted (Shingrix)Indications :Need for vaccination for zoster Inject 0.5 mL into a large muscle now and repeat dose in 60 to 180 days 1 Each 1 05/18/2023 Active documented as of this encounter (statuses as of 09/21/2023) Active Problems Problem Noted Date Diagnosed Date Combined forms of age-related cataract of both e yes 09/21/2023 ICD (implantable cardioverte r-defibrillator), biventricular, in situ 05/18/2023 Unstable angina 05/18/2023 UGIB (upper gastrointestinal bleed) 05/18/2023 Pneumonia [...] as of this encounter (statuses as of 09/21/2023) Resolved Problems Problem Noted Date Diagnosed Date Resolved Date Abnormal mammogram 10/03/2002 4 Chemical dermatitis 10/30/19 04 documented as of this encounter (statuses as of 09/21/2023) Immunizations Name Administration Dates Next Due COVID-19 [...] encounter Miscellaneous Notes * Telephone Encounter - Akira Khan DO - 09/21/2023 1:40 PM EDT Needs IOL/jas: Yes, needs Needs surgery scheduled: Routine Both eye right eye is 1st eye left eye is 2nd eye, 2 weeks later 3. Anesthesia: Monitored Local Anesthesia with Sedation 4. Preferred location: [facility] - due to heart/lung conditions 5. Time needed for IOL/jas discussion: 30 minutes 6. Please schedule H&P w/ PCP Difficulty = 1 documented in this encounter Plan of Treatment Upcoming Encounters Date Type Department Care Team (Late st Contact Info) Description 09/22/2023 1:20 PM EDT Office Visit [place] [address] [facility] [place] [address] Luzma Yu MD [address] [place] [address] 12/01/2023 2:00 PM EDT Office Visit Nephrology, [place] [address] [facility] [place] [address] Franko Dietrich MD [address] [facility] [place] [address] Scheduled Procedures Name Priority Associated Diagnoses Date/Ti [...] Additional history exists CKD HGB USE SMARTSET 59003 06/08/202406/08, 06/08/2023, 03/21/2023, Additional history exists CKD PHOS USE SMARTSET 71741 06/08/2024 12/0 10/2022, 02/23/2023, 05/09/2022 HbA1c 06/08/2024 06/08/2023, 05/0 07/2022, 01/14/2022 TSH 06/08/2024 06/08/2023, 05/0 07/2022, 01/14/2022, Additional history exists DXA Scan 07/27/2025 07/27/2023 DTaP,Tdap,and Td Vaccines (2 - Td or Tdap) 10/31/2032 10/31/2022 Pneumococcal Vaccine: 65+ Years Completed 05/09/2022 VITAMIN D LEVEL ONCE IN A LIFETIME-USE SMARTSET# [id number] Completed 11/03/2022, 05/09/2022 Influenza Vaccine (FLU shot) [...] filedocumented as of this encounter Care Teams Aluminum Pool Installer Relationship Specialty Start Date End Date Luzma Yu MD [address] [place] [address] PCP - General Family Medicine 04/05/21 documented as of this encounter
--- OUTSIDE RECORDS SUMMARY | 2024-02-22 01:42 | External Medical Summary | Summary of Care ---
Author Name Unknown Organization [facility] Address [address] [facility] [place] [address] Phone [phone] Care Team Providers Care Entertainment Usher Name Role Phone Luzma Yu MD Primary Care Provid er Reason for Visit * Reason Onset Date Comments Pre Cert/Prior Auth 09/29/2023 Lidocaine Encounter Details Date Type Department Care Team (Late st Contact Info) Description 09/29/2023 Telephone [facility] [address] [place] [address] Luzma Yu MD [address] [place] [address] Pre Cert/Prior Auth (Lidocaine) Allergies [...] Notes * Telephone Encounter - Aracely Grant readers' advisory service librarian - 10/02/2023 8:36 AM EDT Patients insurance would like to inform the office that Lidocaine 5% patch is denied because no medical record documentation of post herpetic neuralgia. They will fax this info to the office, please review and resubmit if appropriate. Thank you, Aracely Grant, Dot Compliance Manager Centralized Clinical Pharmacy Services (CCPS) (Formerly Telepharmacy) 10/02/2023,8:36 AM * Telephone Encounter - Katy Meraz LPN - 10/01/2023 4:02 PM EDT Paperwork was faxed * Telephone Encounter - Jackie Gonzalez CPhT - 09/30/2023 2:27 PM EDT Patients insurance would like to inform the office that Lidocaine patch is requiring additional information: Diagnosis of post herpetic neuralgia. Prior authorization entered in [employer] at [facility]#[id number] Please fax to [phone] before tomorrow@12PM. Thank you, Jackie Gonzalez CPhT Dot Compliance Manager Turbine Mechanic Centralized Clinical Pharmacy Services (CCPS) (Formerly Telepharmacy) 09/30/2023,2:27 PM * Telephone Encounter - Katy Meraz LPN - 09/29/2023 1:18 PM EDT Prior Authorization for Lidocaine 5% external patch was sent via [employer]. Access vega is [id number] documented in this encounter Plan of Treatment Upcoming Encounters Date Type Department Care Team (Late st Contact Info) Description 12/01/2023 2:00 PM EDT Office [facility] [address] [place], [place] [phone] Franko Dietrich MD [address] [place] [address] 01/29/2024 1:15 PM EDT Office Visit Ophthalmology, [place] [address] Ak[place] [facility] [place] [address] Nurse [place] [facility] [address] 03/25/2024 3:20 PM EDT Office Visit [facility] [address] [place] [address] Luzma Yu MD [address] [place], [place] [address] Scheduled Procedures Name Priority Associated Diagnoses Date/Ti [...] Additional history exists CKD HGB USE SMARTSET 63049 06/08/202406/08, 06/08/2023, 03/21/2023, Additional history exists CKD PHOS USE SMARTSET 90253 06/08/2024 1210/2022, 02/23/2023, 05/09/2022 HbA1c 06/08/2024 06/08/2023, 050 07/2022, 01/14/2022 TSH 06/08/2024 06/08/2023, 050 07/2022, 01/14/2022, Additional history exists DXA Scan 07/27/2025 07/27/2023 DTaP,Tdap,and Td Vaccines (2 - Td or Tdap) 10/31/2032 10/31/2022 Pneumococcal Vaccine: 65+ Years Completed 05/09/2022 VITAMIN D LEVEL ONCE IN A LIFETIME-USE SMARTSET# [id number] Completed 11/03/2022, 05/09/2022 Influenza Vaccine (FLU shot) [...] filedocumented as of this encounter Care Teams Entertainment Usher Relationship Specialty Start Date End Date Luzma Yu MD [address] [place] [address] PCP - General Family Medicine 04/05/21 documented as of this encounter
--- OUTSIDE RECORDS SUMMARY | 2024-02-22 01:42 | External Medical Summary | Summary of Care ---
Author Name Unknown Organization [facility] Address [address] [facility] [place] [address] Phone [phone] Care Team Providers Care Music Supervisor Name Role Phone Luzma Yu MD Primary Care Provid er Reason for Visit * Reason Onset Date Comments Advice 09/22/2023 Back Pain Encounter Details Date Type Department Care Team (Late st Contact Info) Description 09/22/[address] [facility] [address] [place] [address] Luzma Yu MD [address] [place] [address] Advice (Back Pain) Allergies Active Allergy Reactions Criticality Noted Date Comments Adhesive Tape 01/22/2001 local skin reaction Wound Dressings 05/13/2022 Other reaction(s): Skin irritation Aspirin 04/05/2021 Other reaction(s): Stomach upset Latex Hives 04/05/2021 Penicillins 10/13/2003 hives documented as of this encounter (statuses as of 09/25/2023) Medications Medication Sig Dispensed Refills Start Date [...] as of this encounter (statuses as of 09/25/2023) Active Problems Problem Noted Date Diagnosed Date [...] as of this encounter (statuses as of 09/25/2023) Resolved Problems Problem Noted Date Diagnosed Date Resolved Date Unstable angina 05/18/2023 09/22/2023 Abnormal mammogram 10/03/2002 4 Chemical dermatitis 10/30/19 04 documented as of this encounter (statuses as of 09/25/2023) Immunizations Name Administration Dates Next Due COVID-19 [...] encounter Miscellaneous Notes * Telephone Encounter - Arlene Candelaria LPN - 09/25/2023 9:40 AM EDT I called and spoke with the patient and she is aware and voiced understanding with the information from Dr. Yu. * Telephone Encounter - Luzma Yu MD - 09/24/2023 3:00 PM EDT Please call pt back Please come to the front end architect to sign a medical record release form [...] forgot to mention during her appt today 3/19/24 that she has been having back pain. Pt states she had back surgery several months ago. Pt would like to speak to pcp regarding this. Please call pt. documented in this encounter Plan of Treatment Upcoming Encounters Date Type Department Care Team (Late st Contact Info) Description 12/01/2023 2:00 PM EDT Office Visit Nephrology, [place] [address] [facility] [place] [address] Franko Dietrich MD [address] [facility] [place] [address] 01/29/2024 1:15 PM EDT Office Visit Ophthalmology, [place] [address] [facility] [place] [address] Akira Khan DO [address] [place] [address] Nurse [place] [address] 03/25/2024 3:20 PM EDT Office Visit [facility] [address] [place] [address] Luzma Yu MD [address] [place] [address] Scheduled Procedures Name Priority Associated Diagnoses Date/Ti [...] Additional history exists CKD HGB USE SMARTSET 92323 06/08/202406/08, 06/08/2023, 03/21/2023, Additional history exists CKD PHOS USE SMARTSET 75836 06/08/2024 12/0 10/2022, 02/23/2023, 05/09/2022 HbA1c 06/08/2024 06/08/2023, 05/0 07/2022, 01/14/2022 TSH 06/08/2024 06/08/2023, 05/0 07/2022, 01/14/2022, Additional history exists DXA Scan 07/27/2025 07/27/2023 DTaP,Tdap,and Td Vaccines (2 - Td or Tdap) 10/31/2032 10/31/2022 Pneumococcal Vaccine: 65+ Years Completed 05/09/2022 VITAMIN D LEVEL ONCE IN A LIFETIME-USE SMARTSET# [id number] Completed 11/03/2022, 05/09/2022 Influenza Vaccine (FLU shot) [...] Primary documented in this encounter Care Teams Music Supervisor Relationship Specialty Start Date End Date Luzma Yu MD [address] [place] [address] PCP - General Family Medicine 04/05/21 documented as of this encounter
--- OUTSIDE RECORDS SUMMARY | 2024-02-22 01:42 | External Medical Summary | Summary of Care ---
Author Name Unknown Organization [facility] Address [address] [facility] [place] [address] Phone [phone] Care Team Providers Care Air Sampler Name Role Phone Luzma Yu MD Primary Care Provid er Reason for Visit * Reason Comments NEW PATIENT Cataracts Encounter Details Date Type Department Care Team (Late st Contact Info) Description 09/21/2023 12:30 PM EDT Office Visit Ophthalmology, [place] [address] [id number] Akira Khan DO [address] [address] Combined forms of age-related cataract of both eyes*; Retinal pigment epithelial mottling of macula Allergies Active Allergy Reactions Criticality Noted Date [...] Progress Notes * Akira Khan DO - 09/21/2023 12:30 PM EDT 09/21/2023 Codi Painter is a 68 year old patient here for cataract evaluation. Referred by Dr. Jazlyn Leyva, OD Patient c/o progressively increasing difficulty with vision in both eyes at distance >= near. The following activities are more difficult because of blurred vision from the cataract in the bothEYE : Reading the newspaper: Mild Reading medication labels: Mild Watching TV: yes Driving during the day: N/a Driving at night: N/a Recognizing people: yes Past Ocular History, reviewed: T2DM without hx of retinopathy Cataract OU Myopia Eye Medications, reviewed: Denies Hx of refractive procedure, reviewed: Denies Hx of contact lens use, reviewed: Yes, but 2+ years since last worn Hx of eye trauma, reviewed: Denies FOHx, reviewed: Mother - glaucoma Review of Systems Unless noted above, all other systems negative. Nursing notes reviewed. Base Eye Exam Visual Acuity (Snellen - Linear) Right Left Dist cc 20/100 20/250 Dist ph cc 20/60 20/100 Near cc J1+ J2 Tonometry (Tonopen, 12:55 PM) Right Left Pressure 16 15 Pupils Pupils Dark Light Shape React APD Right PERRL 4 3 Round Brisk None Left PERRL 4 3 Round Brisk None Visual Schmidt (Counting fingers) Right Left Full Full Extraocular Movement Right Left Full Full Dilation Both eyes: 1.0% Mydriacyl, 2.5% Phenylephrine @ 12:56 PM Additional Tests Keratometry (Automated) K1 Reserve K2 Reserve Right 45.25 115 45.75 025 Left 45.25 053 45.75 143 Glare Testing Off Low High Right 20/40 20/50 20/60 Left 20/30 20/40 20/60 Slit Lamp and Fundus Exam External Exam Right Left External Normal Normal Slit Lamp Exam Right Left Lids/Lashes DCL DCL Conjunctiva/Sclera White and quiet White and quiet Cornea Clear Clear Anterior Chamber Deep and quiet Deep and quiet Iris Round and reactive, PD 7mm Round and reactive, PD 7mm Lens 3+ NSC, 2+ cortical, vacuoles 2+ NSC, 2+ cortical, vacuoles Fundus Exam Right Left Vitreous PVD PVD Disc Normal Normal Macula RPE mottling RPE mottling Vessels Normal Normal Periphery Normal Normal Refraction Wearing Rx Sphere Cylinder Reserve Add Right -3.75 +0.50 012 +2.75 Left -3.75 +0.50 149 +2.75 Manifest Refraction (Auto) Sphere Cylinder Reserve Right -7.50 +0.75 020 Left -6.00 +1.00 145 Date: 09/21/23 OCT Macula: OD - RPE [...] See below Flomax = Denies Claustrophobia = DND did not discuss Anesthesia = DND Hx of refractive procedure=Denies IOL Measurements = to be performed IOL interpretation = Biometry (IOL) & topography [...] OCT with RPE defects -Will monitor RTC IOL/jas or sooner prn. A/P explained, patient verbalized understanding. Patient understands to f/u immediately with questions, concerns, or any ophthalmic issues. Akira Khan DO 09/21/23 I spent a total of 30-39 minutes (exact time 30 mins) on the date of service in preparation, delivery, and documentation of the care provided to Codi Painter excluding any time spent in the performance of separately billed services. documented in this encounter Nursing Notes * Angelia Osborne TECH - 09/21/2023 12:42 PM EDT Pt is here for a new patient cataract evaluation referred by Jazlyn Leyva at [facility] documented in this encounter Plan of Treatment Upcoming Encounters Date Type Department Care Team (Late st Contact Info) Description 12/01/2023 2:00 PM EDT Office [facility] [address] [place] [address] Franko Dietrich MD [address] [facility] [place] [address] Scheduled Procedures Name Priority Associated Diagnoses Date/Ti [...] Additional history exists CKD HGB USE SMARTSET 55399 06/08/202406/08, 06/08/2023, 03/21/2023, Additional history exists CKD PHOS USE SMARTSET 20128 06/08/2024 12/0 10/2022, 02/23/2023, 05/09/2022 HbA1c 06/08/2024 06/08/2023, 05/0 07/2022, 01/14/2022 TSH 06/08/2024 06/08/2023, 05/0 07/2022, 01/14/2022, Additional history exists DXA Scan 07/27/2025 07/27/2023 DTaP,Tdap,and Td Vaccines (2 - Td or Tdap) 10/31/2032 10/31/2022 Pneumococcal Vaccine: 65+ Years Completed 05/09/2022 VITAMIN D LEVEL ONCE IN A LIFETIME-USE SMARTSET# [id number] Completed 11/03/2022, 05/09/2022 Influenza Vaccine (FLU shot) [...] Procedure Name Priority Date/Time Associated Diagnosis Comments RETINA SCAN DIAGNOSTIC IMAGE, POSTERIOR Routine 09/21/2023 Retinal pigment epithelial mottling of macula documented in this encounter Results * RETINA SCAN DIAGNOSTIC IMAGE, POSTERIOR (09/21/2023) Akira Khan DO MEDICINE CONTINUUM OPH documented in this encounter Visit Diagnoses Diagnosis Combined forms of age-related cataract of both eyes- Primary Other and combined forms of senile cataract Retinal pigment epithelial mottling of macula Other retinal disorders documented in this encounter Care Teams Air Sampler Relationship Specialty Start Date End Date Luzma Yu MD [address] [place] [address] PCP - General Family Medicine 04/05/21 documented as of this encounter
--- OUTSIDE RECORDS SUMMARY | 2024-02-22 01:42 | External Medical Summary | Summary of Care ---
Author Name Unknown Organization [facility] Address [address] [facility] [place] [address] Phone [phone] Care Team Providers Care Supervisor Varnish Name Role Phone Luzma Yu MD Primary Care Provid er Encounter Details Date Type Department Care Team (Late st Contact Info) Description 09/21/2023 [place] [address] [address] Akira Khan DO [address] [facility] [place] [address] Allergies Active Allergy Reactions Criticality Noted Date Comments Adhesive Tape 01/22/2001 local skin reaction Wound Dressings 05/13/2022 Other reaction(s): Skin irritation Aspirin 04/05/2021 Other reaction(s): Stomach upset Latex Hives 04/05/2021 Penicillins 10/13/2003 hives documented as of this encounter (statuses as of 10/06/2023) Medications Medication Sig Dispensed Refills Start Date [...] as of this encounter (statuses as of 10/06/2023) Active Problems Problem Noted Date Diagnosed Date [...] as of this encounter (statuses as of 10/06/2023) Resolved Problems Problem Noted Date Diagnosed Date Resolved Date Unstable angina 05/18/2023 09/22/2023 Abnormal mammogram 10/03/2002 4 Chemical dermatitis 10/30/19 04 documented as of this encounter (statuses as of 10/06/2023) Immunizations Name Administration Dates Next Due COVID-19 [...] Telephone Encounter - Mikki Coello OSA - 10/06/2023 2:44 PM EDT Pt called inquiring about when surgery will be. 03/01 and 03/29 at [facility]. Pt verbalized understanding. I said that I will be in touch in a couple weeks with other appointments. ARNALDO Gooden 10/06/2023 2:45 PM * Telephone Encounter - Akira Khan DO - 09/21/2023 1:40 PM EDT Needs IOL/jas: Yes, needs Needs surgery scheduled: Routine Both eye right eye is 1st eye left eye is 2nd eye, 2 weeks later 3. Anesthesia: Monitored Local Anesthesia with Sedation 4. Preferred location: [facility] - due to heart/lung conditions 5. Time needed for IOL/jas discussion: 30 minutes 6. Please schedule H&P w/ PCP Difficulty = 1 documented in this encounter Plan of Treatment Upcoming Encounters Date Type Department Care Team (Late st Contact Info) Description 12/01/2023 2:00 PM EDT Office Visit Nephrology, [facility] [address] [facility] [place] [address] Franko Dietrich MD [address] [facility] [place] [address] 01/29/2024 1:15 PM EDT Office Visit Ophthalmology, [place] [address] [facility] [place] [address] Akira Khan DO [address] [facility] [place] [address] Nurse [place] [facility] [address] [facility] [place] [address] 03/25/2024 3:20 PM EDT Office Visit [facility] [address] [place] [phone] Luzma Yu MD [address] [place] [address] Scheduled Procedures Name Priority Associated Diagnoses Date/Ti me EXTRACAPSULAR CATARACT REMOV AL WITH INTRAOCULAR LENS Combined forms of age-related cataract of both eyes Health Maintenance Due Date Last Done Comments Depression Screening 1965 Hepatitis C Screening 1971 Cologuard 1998 Colonoscopy 1998 Colorectal Cancer Screening 1998 Fecal Occult Blood Test 1998 Sigmoidoscopy 1998 Zoster Vaccines (1 of 2) 2003 COVID-19 Vaccine (2022- season) 2023 11/06/2020, 09/27/2020 Albumin/Creatinine Ratio 05/20/2023 05/20/2022 Mammogram 11/25/2023 11/24/2022, 06/01/2002 GFR 12/08/2023 06/08/2023, 03/06, 02/23/2023, Additional history exists CKD HGB USE SMARTSET 04196 06/08/202406/08, 06/08/2023, 03/21/2023, Additional history exists CKD PHOS USE SMARTSET 30554 06/08/2024 12/0 10/2022, 02/23/2023, 05/09/2022 HbA1c 06/08/2024 06/08/2023, 05/0 07/2022, 01/14/2022 TSH 06/08/2024 06/08/2023, 05/0 07/2022, 01/14/2022, Additional history exists DXA Scan 07/27/2025 07/27/2023 DTaP,Tdap,and Td Vaccines (2 - Td or Tdap) 10/31/2032 10/31/2022 Pneumococcal Vaccine: 65+ Years Completed 05/09/2022 VITAMIN D LEVEL ONCE IN A LIFETIME-USE SMARTSET# [id number] Completed 11/03/2022, 05/09/2022 Influenza Vaccine (FLU shot) [...] filedocumented as of this encounter Care Teams Supervisor Varnish Relationship Specialty Start Date End Date Luzma Yu MD [address] [facility] [place] [address] PCP - General Family Medicine 04/05/21 documented as of this encounter
--- OUTSIDE RECORDS SUMMARY | 2024-02-22 01:42 | External Medical Summary | Summary of Care ---
Author Name Unknown Organization [facility] Address [address] [facility] [place] [address] Phone [phone] Care Team Providers Care Wood Handler Name Role Phone Luzma Yu MD Primary Care Provid er Reason for Visit * Reason Comments NEW PATIENT Cataracts Encounter Details Date Type Department Care Team (Late st Contact Info) Description 09/21/2023 12:30 PM EDT Office Visit Ophthalmology, [place] [address] [address] Akira Khan DO [address] [address] Combined forms of age-related cataract of both [...] of this encounter Progress Notes * Akira Khan, - 09/21/2023 12:30 PM EDT 09/21/2023 Codi [...] 12:56 PM Additional Tests Keratometry (Automated) K1 Thompson K2 Thompson Right 45.25 115 45.75 025 Left 45.25 [...] Normal Normal Refraction Wearing Rx Sphere Cylinder Thompson Add Right -3.75 +0.50 012 +2.75 Left -3.75 +0.50 149 +2.75 Manifest Refraction (Auto) Sphere Cylinder Thompson Right -7.50 +0.75 020 Left -6.00 +1.00 [...] cataract evaluation referred by Jazlyn Leyva at [facility] documented in this encounter Plan of Treatment Upcoming Encounters Date Type Department Care Team (Late st Contact Info) Description 09/22/2023 1:20 PM EDT Office Visit [facility] [address] [place] [phone] Luzma Yu MD [address] [place] [address] 12/01/2023 2:00 PM EDT Office Visit Nephrology, [facility] [address] [facility] [place] [address] Franko Dietrich MD [address] [facility] [place] [address] Scheduled Orders Name Type Priority Associated Diagnoses Orde r Schedule RETINA SCAN DIAGNOSTIC IMAGE, POSTERIOR Procedures Routine Retinal pigment epithelial mottling of macula Ordered: 09/21/2023 Scheduled Procedures Name Priority Associated Diagnoses Date/Ti [...] Additional history exists CKD HGB USE SMARTSET 89043 06/08/202406/08, 06/08/2023, 03/21/2023, Additional history exists CKD PHOS USE SMARTSET 39129 06/08/2024 12/0 10/2022, 02/23/2023, 05/09/2022 HbA1c 06/08/2024 06/08/2023, 05/0 07/2022, 01/14/2022 TSH 06/08/2024 06/08/2023, 05/0 07/2022, 01/14/2022, Additional history exists DXA Scan 07/27/2025 07/27/2023 DTaP,Tdap,and Td Vaccines (2 - Td or Tdap) 10/31/2032 10/31/2022 Pneumococcal Vaccine: 65+ Years Completed 05/09/2022 VITAMIN D LEVEL ONCE IN A LIFETIME-USE SMARTSET# [id number] Completed 11/03/2022, 05/09/2022 Influenza Vaccine (FLU shot) [...] disorders documented in this encounter Care Teams Wood Handler Relationship Specialty Start Date End Date Luzma Yu MD [address] [place] [address] PCP - General Family Medicine 04/05/21 documented as of this encounter
[2024-02-22] MEDS: ASPIRIN 81 MG CHEW PO STA (01:55)
[2024-02-22 02:21] LABS: Basophils # (auto) 0.04 K/uL (0.00-0.20); Basophils % (auto) 0.7 %; Eosinophils # (auto) 0.23 K/uL (0.00-0.50); Eosinophils % (auto) 4.1 %; Hematocrit (blood only) 37.9 % (37.0-47.0); Immature Granulocytes # (auto) 0.02 K/uL (0.01-0.20); Immature Granulocytes % (auto) 0.4 %; Lymphocytes # (auto) 1.33 K/uL (1.20-3.40); Lymphocytes % (auto) 23.6 %; Mean Corpuscular Hemoglobin 29.6 pg (25.0-34.0); Mean Corpuscular Hgb Conc 34.3 g/dL (32.0-36.0); Mean Corpuscular Volume 86.3 fL (80.0-100.0); Mean Platelet Volume 9.7 fL (9.4-12.4); Monocytes # (auto) 0.38 K/uL (0.11-0.59); Monocytes % (auto) 6.7 %; Neutrophils # (auto) 3.63 K/uL (1.40-6.50); Neutrophils % (auto) 64.5 %; Platelet Count 188 K/uL (130-400); RDW Coefficient of Variation 12.4 % (11.5-14.5); Red Blood Count 4.39 M/uL (4.20-5.40); White Blood Count 5.63 K/ul (4.8-10.8)
[2024-02-22 02:37] LABS: Alanine Aminotransferase 9 U/L (7-52); Albumin Globulin Ratio 1.4 (0.9-2); Albumin Level 4.1 gm/dl (3.4-5.0); Alkaline Phosphatase 73 U/L (34-104); Anion Gap 10 (3-11); Aspartate Aminotransferase 14 U/L (13-39); BUN Creatinine Ratio 14.7 (10-20); Bilirubin,Total 0.3 mg/dl (0.2-1.0); Blood Urea Nitrogen 17 mg/dl (6-23); Calcium 9.4 mg/dl (8.6-10.3); Carbon Dioxide 25 mmol/L (21-32); Chloride 100 mmol/L (98-107); Est GFR (African American) 55.2 ml/min; Est GFR (Non-African American) 47.7 ml/min; Glucose 148 mg/dl (70-99(Fasting)); Lipase 70 U/L (11-82); Sodium 135 mmol/L (136-145); Total Protein 7.1 gm/dl (6.0-8.3)
[2024-02-22 02:43] LABS: Troponin I High Sensitivity 15.8 pg/ml (0-14)
[2024-02-22 02:45] LABS: Partial Thromboplastin Ratio 0.9; Partial Thromboplastin Time 23 Seconds (21-31); Prothrombin Time 10.5 Seconds (9.0-12.0)
--- NOTE | 2024-02-22 04:20 | History & Physical Report ---
Date of Service February 22, 2024 Assessment & Plan (1) Chest pain: Plan: 68-year-old female with past medical significant for hyperlipidemia, hypothyroidism, prediabetes, history of pneumonia, history of atrioventricular complete block, history of transient atrial fibrillation, history of paroxysmal ventral tachycardia, history of ischemic cardiomyopathy, status post ICD, history of CAD s/p stent, hypertension, venous insufficiency history of upper GI bleed, history of esophageal dysphagia, CKD stage III, acute incontinence of urine, osteoporosis, mild dementia, mixed hearing loss bilateral, scalp psoriasis, depression, anxiety, history of alcohol dependence, comes because of on and off chest pain for last few days. Having pressure-like feeling in the chest radiating to back and left arm. Today she took aspirin, Tylenol and tramadol and nitro for pain. She does not know what helped the pain go away. Currently the patient is chest pain-free. Denies any headache. No dizziness. Vision is okay. No runny nose or sore throat. No cough. No nausea. Has some shortness of breath breath. No abdominal pain. Normal bowel and bladder movements. Patient is somewhat hard to hear. Hemodynamics are okay. Chest pain History of CAD s/p stent Initial troponin 15 and repeat 31 Will follow serial cardiac enzymes, repeat EKG and echo N.p.o. for now Monitor in med/telemetry Consult cardio in a.m. for further recommendations History of CAD s/p stent On aspirin, statin and beta-jus History of transient atrial fibrillation On Coreg and aspirin Not on anticoagulation History of atrioventricular complete block History of proximal ventral tachycardia History of ischemic cardiomyopathy EF was 25 to 30% in October 2010 Echo in February 2023 normal EF Pacemaker was converted to biventricular ICD Will follow echo History of ischemic cardiopathy Recent echo EF normalized On Coreg Hypertension On Coreg and hydrochlorothiazide elevated. received a dose of iv labetolol Will monitor CKD stage III Presented with creatinine 1.1 We will follow labs History of hypothyroidism Will follow TSH Prediabetes Follow HbA1c levels DVT prophylaxis SCDs Disposition Med/telemetry Full code History of Present Illness Chief Complaint: Chest pain Primary Care Provider: Luzma Yu MD 68-year-old female with past medical history significant for hyperlipidemia, hypothyroidism, prediabetes, history of pneumonia, history of atrioventricular complete block, history of transient atrial fibrillation, history of paroxysmal ventral tachycardia, history of ischemic cardiomyopathy, status post ICD, history of CAD s/p stent, hypertension, venous insufficiency, history of upper GI bleed, history of esophageal dysphagia, CKD stage III, incontinence of urine, osteoporosis, mild dementia, mixed hearing loss bilateral, scalp psoriasis, depression, anxiety, history of alcohol dependence, comes because of on and off chest pain for last few days. Having pressure-like feeling in the chest radiating to back and left arm. Today she took aspirin, Tylenol and tramadol and nitro for pain. She does not know what helped the pain go away. Currently the patient is chest pain-free. Denies any headache. No dizziness. Vision is okay. No runny nose or sore throat. No cough. No nausea. Has some shortness of breath breath. No abdominal pain. Normal bowel and bladder movements. Patient is somewhat hard to hear. Hemodynamics are okay. Past medical history. As mentioned above Past surgical history. ICD placement, ligation of oviducts, s/p cardiac stent placement, large sebaceous cyst removal from the chest wall, cholecystectomy. Social history. . No smoking. Alcohol occasional. No drug use. Family history. Sister has heart disorder. Hypertension. Anxiety. Mother had hypertension. Anxiety. Allergies Allergy/AdvReac Type Severity Reaction Status Date / Time latex Allergy Intermediate HIVES Verified 09/07/23 13:46 adhesive Allergy Mild SKIN Verified 09/07/23 13:46 IRRITATION penicillin V Allergy Unknown Unknown Verified 09/07/23 13:46 aspirin AdvReac Mild STOMACH Verified 09/07/23 13:46 UPSET Home Medications Medication Instructions Recorded Confirmed Type nitroglycerin 0.4 mg sublingual 0.4 mg sublingual DIRECTED PRN 06/16/18 02/22/24 History tablet (Nitrostat) Chest Pain atorvastatin 80 mg tablet 80 mg PO HS 03/12/21 02/22/24 History solifenacin 5 mg tablet (Vesicare) 5 mg PO QAM 03/12/21 02/22/24 History acetaminophen 500 mg tablet 1,000 mg PO AMHS 02/15/23 02/22/24 History (Tylenol Extra Strength) aspirin 81 mg tablet,delayed 81 mg PO QAM 04/28/23 02/22/24 History release magnesium oxide 400 mg PO QAM 04/28/23 02/22/24 History carvedilol 3.125 mg tablet 3.125 mg PO BID 09/04/23 02/22/24 History hydrochlorothiazide 12.5 mg tablet 12.5 mg PO QAM 02/22/24 02/22/24 History tramadol 50 mg tablet 50 mg PO UD PRN Pain 02/22/24 02/22/24 History Past Med/Surg History Problem List (Updated 02/22/24 @ 04:25 by Caleb Murphy MD) Chest pain Generalized weakness (Acute) Dyslipidemia Parainfluenza (Acute) Pneumonia (Acute) RAD (reactive airway disease) (Acute) UGIB (upper gastrointestinal bleed) SOB (shortness of breath) HBP (high blood pressure) GERD (gastroesophageal reflux disease) Osteoporosis AF (paroxysmal atrial fibrillation) Depression Diabetes mellitus, type 2 Fracture of L1 vertebra (Acute) Fall (Acute) Mixed hearing loss, bilateral Coronary artery disease Fatigue ICD (implantable cardioverter-defibrillator), biventricular, in situ Encounter for pre-operative examination Encounter for pre-operative examination Esophageal dysphagia Left knee pain (Acute) Left knee pain (Acute) Unstable angina Syncope (Acute) DVT prophylaxis Acute cystitis Ischemic cardiomyopathy Hypothyroidism PT DENIES. Medical History Acid reflux disease with ulcer AF (paroxysmal atrial fibrillation) Alcohol abuse, unspecified Anxiety Anxiety disorder Anxiety state, unspecified Atrial fibrillation CAD (coronary artery disease) Cancer SKIN CANCER Cardiac arrest Cardiomyopathy Congestive cardiomyopathy Congestive heart failure, unspecified Cor athrscl-uns vessel Coronary artery disease Depression Depressive disorder, not elsewhere classified Diabetes mellitus, type 2 Dysphagia, oropharyngeal phase Fecal incontinence GERD (gastroesophageal reflux disease) Goiter Celia's thyroiditis HLD (hyperlipidemia) Hypertension Hypothyroidism PT DENIES. Ischemic cardiomyopathy Lumbago Lumbar compression fracture Ocular hypertension, unspecified eye Old myocardial infarct Other and unspecified hyperlipidemia Postmenopausal atrophic vaginitis Subclinical hypothyroidism Type 2 diabetes mellitus Unknown whether patient has any health problems Urinary tract infection FREQUENT Surgical History History of appendectomy History of cardiac cath 1 STENT (2016 @ [facility]) History of cholecystectomy History of colonoscopy History of esophagogastroduodenoscopy (EGD) History of heart artery stent ADVISED TO BRING STENT CARD History of tonsillectomy S/P placement of cardiac pacemaker ~15-20 YEARS AGO[address] FOLLOWS WITH DR RUBI AND LAST CHECKED 4 MONTHS AGO Family History Mother Family history of diabetes mellitus Blind Hearing loss Hypertension Allergies Asthma Sister Family history of diabetes mellitus Coronary heart disease Father No problems noted. Denies family history of No family history of adverse response to anesthesia No family history of bleeding disorder Heart disease Cancer Stroke Social History Smoking Status: Never smoker Second Hand Exposure: No; Do You Dip or Chew Tobacco: No; Hx Alcohol Use: Yes Alcohol type: beer and hard liquor Alcohol Intake Frequency: 2-3 x/Week Hx Substance Use: No Preferred Language: Amharic Communication Ability: Effective Wellness Coordinator Required: No Beliefs That Will Affect Care: None marital status: Current Living Situation: Spouse How many Children do You have: 1 Other Information That Helps Us Care for You: No Feels Safe at Home: Yes Safety Concerns: Feels Safe At This Time Assistive Devices: Raised Toilet Seat, Walker and Other Review of Systems Review of Systems: All systems reviewed & are unremarkable except as noted in HPI & below Physical Exam Physical Exam: General- Not in distress Head- atraumatic Eyes- PERRL. ENT- oropharynx clear Neck- supple, no JVD. Lungs- clear to auscultation no wheezing or crackles Heart- regular rate and rhythm; no murmur, no gallop. Abdomen- normal bowel sounds, soft, nontender, no distension Extremities- no pretibial edema, no erythema seen. Neuro- alert, oriented PERRL, EOMI; no facial palsy; no dysarthria; moves extremities. Results & Data Results & Data Vital Signs (Past 12 Hours) Vital Signs Temp Pulse Resp BP Pulse Ox O2 Del Method 02/22/24 03:30 163/86 H 02/22/24 03:24 83 17 96 02/22/24 03:12 79 18 96 02/22/24 03:06 82 19 95 02/22/24 03:00 167/89 H 02/22/24 03:00 167/89 H 02/22/24 02:48 83 23 95 02/22/24 02:42 85 20 97 02/22/24 02:30 84 23 96 02/22/24 02:30 144/83 H 02/22/24 02:30 144/83 H 02/22/24 02:30 144/83 H 02/22/24 02:21 86 22 96 02/22/24 02:15 85 21 96 02/22/24 02:00 152/85 H 02/22/24 02:00 152/85 H 02/22/24 01:57 164/109 H 02/22/24 01:47 94 H 02/22/24 01:45 Room Air 02/22/24 01:44 Room Air 02/22/24 01:40 36.4 C L 97 H 18 170/91 H 96 Diagnostic Findings Laboratory Results WBC 5.63 K/ul (4.8-10.8) 02/22/24 01:56 RBC 4.39 M/uL (4.20-5.40) 02/22/24 01:56 Hgb 13.0 g/dl (12.0-16.0) 02/22/24 01:56 Hct 37.9 % (37.0-47.0) 02/22/24 01:56 MCV 86.3 fL (80.0-100.0) 02/22/24 01:56 MCH 29.6 pg (25.0-34.0) 02/22/24 01:56 MCHC 34.3 g/dL (32.0-36.0) 02/22/24 01:56 RDW Std Deviation 39.0 fL (36.4-46.3) 02/22/24 01:56 RDW Coeff of [place] 12.4 % (11.5-14.5) 02/22/24 01:56 Plt Count 188 K/uL (130-400) 02/22/24 01:56 MPV 9.7 fL (9.4-12.4) 02/22/24 01:56 Immature Gran % (Auto) 0.4 % 02/22/24 01:56 Neut % (Auto) 64.5 % 02/22/24 01:56 Lymph % (Auto) 23.6 % 02/22/24 01:56 [place] % (Auto) 6.7 % 02/22/24 01:56 Eos % (Auto) 4.1 % 02/22/24 01:56 Baso % (Auto) 0.7 % 02/22/24 01:56 Neut # (Auto) 3.63 K/uL (1.40-6.50) 02/22/24 01:56 Lymph # (Auto) 1.33 K/uL (1.20-3.40) 02/22/24 01:56 [place] # (Auto) 0.38 K/uL (0.11-0.59) 02/22/24 01:56 Eos # (Auto) 0.23 K/uL (0.00-0.50) 02/22/24 01:56 Baso # (Auto) 0.04 K/uL (0.00-0.20) 02/22/24 01:56 Immature Gran # (Auto) 0.02 K/uL (0.01-0.20) 02/22/24 01:56 PT 10.5 Seconds (9.0-12.0) 02/22/24 01:56 INR 1.0 (0.9-1.1) 02/22/24 01:56 APTT 23 Seconds (21-31) 02/22/24 01:56 PTT Ratio 0.9 02/22/24 01:56 Sodium 135 mmol/L (136-145) L 02/22/24 01:56 Potassium 4.0 mmol/L (3.5-5.1) 02/22/24 01:56 Chloride 100 mmol/L (98-107) 02/22/24 01:56 Carbon Dioxide 25 mmol/L (21-32) 02/22/24 01:56 Anion Gap 10 (3-11) 02/22/24 01:56 BUN 17 mg/dl (6-23) 02/22/24 01:56 Creatinine 1.16 mg/dl (0.6-1.2) 02/22/24 01:56 Est Cr Clr Drug Dosing Not Reportable 02/22/24 01:56 Est GFR ( Amer) 55.2 ml/min 02/22/24 01:56 Est GFR (Non-Af Amer) 47.7 ml/min 02/22/24 01:56 BUN/Creatinine Ratio 14.7 (10-20) 02/22/24 01:56 Glucose 148 mg/dl (70-99(Fasting)) H 02/22/24 01:56 Calcium 9.4 mg/dl (8.6-10.3) 02/22/24 01:56 Total Bilirubin 0.3 mg/dl (0.2-1.0) 02/22/24 01:56 AST 14 U/L (13-39) 02/22/24 01:56 ALT 9 U/L (7-52) 02/22/24 01:56 Alkaline Phosphatase 73 U/L (34-104) 02/22/24 01:56 Troponin I High Sens 15.8 pg/ml (0-14) H 02/22/24 01:56 Total Protein 7.1 gm/dl (6.0-8.3) 02/22/24 01:56 Albumin 4.1 gm/dl (3.4-5.0) 02/22/24 01:56 Globulin 3.0 gm/dl (2.5-4.0) 02/22/24 01:56 Albumin/Globulin Ratio 1.4 (0.9-2) 02/22/24 01:56 Lipase 70 U/L (11-82) 02/22/24 01:56 ECG Additional Comments: ECG ventricular paced rhythm rate of 96. Code Status & VTE Plan VTE Prophylaxis Plan VTE Prophylaxis will be ordered: Yes
[2024-02-22] MEDS: MoRPHine SULFATE 2 MG/ML CARP IV STA (04:38)
[2024-02-22] MEDS ORDERED: NITROGLYCERIN SL 0.4 MG/TAB TAB SL PRN (04:40)
[2024-02-22] MEDS ORDERED: traMADol HCL 50 MG TABLET PO PRN ×2 (04:40→04:49)
--- NOTE | 2024-02-22 05:12 | Emergency Department Note ---
Impression & Plan Elevated troponin, Chest pain ED Provider Note CHIEF COMPLAINT: Chest pain HISTORY OF PRESENT ILLNESS: This patient is a 68-year-old female who presents emergency department with complaints of chest pain. She states she was trying to go to sleep, noticed substernal chest pressure radiating through to her back and left arm. She does have a history of paroxysmal atrial fibrillation, ischemic cardiomyopathy, coronary artery disease with stents in place per her, AICD, diabetes mellitus, depression, hypertension, dyslipidemia. In review of patient's old records, she does have a history of some dementia. Patient's mentions that they recently moved her 96-year-old mother into their home. Patient states her pain is improving at this time although she does feel some residual discomfort. She received nitroglycerin prior to my evaluation. REVIEW OF SYSTEMS: A review of systems was performed with positives and pertinent negatives listed in the history of present illness. 10 systems were reviewed and are otherwise negative. ALLERGIES: see below MEDICATIONS: see below PMH: see below SOCIAL HISTORY: see below DDx: Acute coronary syndrome, aortic dissection, pneumonia, congestive heart failure, PE, pneumothorax among others. PHYSICAL EXAM: Vital signs reviewed. Noted to be hypertensive General: Well-appearing 68-year-old female, in no significant distress. HEENT: No scleral icterus, PERRLA, neck supple. Atraumatic. Cardiovascular: Regular rate and rhythm, no extra sounds. Pulmonary: Clear to auscultation bilaterally, normal work of breathing. Abdomen: Soft, nontender, nondistended, positive bowel sounds. Musculoskeletal: Atraumatic, no peripheral edema. Neurologic: Patient awake alert and fairly oriented x 3, follows commands easily. Skin: Warm, dry, no rash EMERGENCY DEPARTMENT COURSE/MDM: this patient was evaluated and appeared to be in no significant distress. IV access was obtained and laboratory work was drawn. Pt was given ASA to chew. The patient was placed on the [place] technician noted to be in a normal sinus rhythm. Chest x-ray was performed and reveals an AICD in place, mild pulmonary vascular congestion. Laboratory work reveals a mildly elevated troponin at 15.8. Repeat troponin was obtained at 30.4. Given the patient's substernal chest pressure, history of ischemic cardiomyopathy and CAD in addition to her mildly elevated troponin, patient will be evaluated by the hospitalist service for admission and further management. MONITORING: An order for cardiac monitoring was placed and the patient is noted to be in a normal sinus rhythm at 72 beats per minute. RADIOLOGY: To my interpretation reveals AICD in place, mild pulmonary vascular congestion. No focal lung consolidation. EKG: To my interpretation reveals a ventricularly paced rhythm at 96 bpm. QTc of 520. Normal ST segments. No PVC, no PAC. DISPOSITION: Admission Past Med/Surg History Problem List (Updated 02/23/24 @ 00:51 by Yasmin Goel MD) Elevated troponin (Acute) LBBB (left bundle branch block) Chest pain (Acute) Generalized weakness (Acute) Dyslipidemia Parainfluenza (Acute) Pneumonia (Acute) RAD (reactive airway disease) (Acute) UGIB (upper gastrointestinal bleed) SOB (shortness of breath) HBP (high blood pressure) GERD (gastroesophageal reflux disease) Osteoporosis AF (paroxysmal atrial fibrillation) Depression Diabetes mellitus, type 2 Fracture of L1 vertebra (Acute) Fall (Acute) Mixed hearing loss, bilateral Coronary artery disease Fatigue ICD (implantable cardioverter-defibrillator), biventricular, in situ Encounter for pre-operative examination Encounter for pre-operative examination Esophageal dysphagia Left knee pain (Acute) Left knee pain (Acute) Unstable angina Syncope (Acute) DVT prophylaxis Acute cystitis Ischemic cardiomyopathy Hypothyroidism PT DENIES. Medical History S/P right coronary artery (RCA) stent placement (2015) History of placement of stent in LAD coronary artery (2008) History of placement of stent in LAD coronary artery (2019) Hypomagnesemia Acute hypokalemia Non-ST elevation VA (NSTEMI) Pneumonia Acid reflux disease with ulcer Alcohol abuse, unspecified Anxiety state, unspecified Anxiety disorder Atrial fibrillation Coronary artery disease Cardiac arrest Cardiomyopathy Congestive heart failure, unspecified Congestive cardiomyopathy Cor athrscl-uns vessel Depressive disorder, not elsewhere classified Dysphagia, oropharyngeal phase Fecal incontinence Goiter Celia's thyroiditis Other and unspecified hyperlipidemia Ocular hypertension, unspecified eye Lumbago Lumbar compression fracture Old myocardial infarct Postmenopausal atrophic vaginitis Subclinical hypothyroidism Type 2 diabetes mellitus Unknown whether patient has any health problems Urinary tract infection FREQUENT Cancer SKIN CANCER Hypertension Anxiety GERD (gastroesophageal reflux disease) HLD (hyperlipidemia) CAD (coronary artery disease) Surgical History History of appendectomy History of cardiac cath 1 STENT (2015 @ [facility]) History of esophagogastroduodenoscopy (EGD) History of colonoscopy History of tonsillectomy S/P placement of cardiac pacemaker ~15-20 YEARS AGO[address] FOLLOWS WITH DR RUBI AND LAST CHECKED 4 MONTHS AGO History of cholecystectomy Family History Mother Family history of diabetes mellitus Blind Hearing loss Hypertension Allergies Asthma Sister Family history of diabetes mellitus Coronary heart disease Father No problems noted. 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 Required: No Beliefs That Will Affect Care: None marital status: Current Living Situation: Spouse How many Children do You have: 1 Other Information That Helps Us Care for You: No Feels Safe at Home: Yes Safety Concerns: Feels Safe At This Time Assistive Devices: Raised Toilet Seat, Walker and Other Allergies Allergies Allergy/AdvReac Type Severity Reaction Status Date / Time latex Allergy Intermediate HIVES Verified 09/07/23 13:46 adhesive Allergy Mild SKIN Verified 09/07/23 13:46 IRRITATION penicillin V Allergy Unknown Unknown Verified 09/07/23 13:46 aspirin AdvReac Mild STOMACH Verified 09/07/23 13:46 UPSET Home Meds Home Medications Medication Instructions Recorded Confirmed nitroglycerin 0.4 mg sublingual 0.4 mg sublingual DIRECTED PRN 06/16/18 02/22/24 tablet (Nitrostat) Chest Pain atorvastatin 80 mg tablet 80 mg PO HS 03/12/21 02/22/24 solifenacin 5 mg tablet (Vesicare) 5 mg PO QAM 03/12/21 02/22/24 acetaminophen 500 mg tablet 1,000 mg PO AMHS 02/15/23 02/22/24 (Tylenol Extra Strength) aspirin 81 mg tablet,delayed 81 mg PO QAM 04/28/23 02/22/24 release magnesium oxide 400 mg PO QAM 04/28/23 02/22/24 carvedilol 3.125 mg tablet 3.125 mg PO BID 09/04/23 02/22/24 hydrochlorothiazide 12.5 mg tablet 12.5 mg PO QAM 02/22/24 02/22/24 tramadol 50 mg tablet 50 mg PO UD PRN Pain 02/22/24 02/22/24 Results & Data (ED) Vital Signs Vital Signs - 24 hr 02/22/24 01:40 02/22/24 01:44 02/22/24 01:44 Temperature 36.4 C L Temperature Source Temporal Artery Scan Pulse Rate 97 H Pulse Rate from SpO2 Sensor Respiratory Rate 18 Respiratory Effort / Characteristics Non-Labored Respiratory Depth Normal Blood Pressure 170/91 H Blood Pressure Mean 117 Pulse Oximetry 96 Oxygen Delivery Method Room Air Sepsis Recent Fever Within 48 Hours No Sepsis New/Unexplained Change in Mental Status No Sepsis Action Taken by Nursing No Action Required 02/22/24 01:45 02/22/24 01:47 02/22/24 01:57 Temperature Temperature Source Pulse Rate 94 H Pulse Rate from SpO2 Sensor Respiratory Rate Respiratory Effort / Characteristics Respiratory Depth Blood Pressure 164/109 H Blood Pressure Mean 133 Pulse Oximetry Oxygen Delivery Method Room Air Sepsis Recent Fever Within 48 Hours Sepsis New/Unexplained Change in Mental Status Sepsis Action Taken by Nursing 02/22/24 02:00 02/22/24 02:00 02/22/24 02:15 Temperature Temperature Source Pulse Rate 85 Pulse Rate from SpO2 Sensor 84 Respiratory Rate 21 Respiratory Effort / Characteristics Respiratory Depth Blood Pressure 152/85 H 152/85 H Blood Pressure Mean 109 109 Pulse Oximetry 96 Oxygen Delivery Method Sepsis Recent Fever Within 48 Hours Sepsis New/Unexplained Change in Mental Status Sepsis Action Taken by Nursing 02/22/24 02:21 02/22/24 02:30 02/22/24 02:30 Temperature Temperature Source Pulse Rate 86 Pulse Rate from SpO2 Sensor 86 Respiratory Rate 22 Respiratory Effort / Characteristics Respiratory Depth Blood Pressure 144/83 H 144/83 H Blood Pressure Mean 130 130 Pulse Oximetry 96 Oxygen Delivery Method Sepsis Recent Fever Within 48 Hours Sepsis New/Unexplained Change in Mental Status Sepsis Action Taken by Nursing 02/22/24 02:30 02/22/24 02:30 02/22/24 02:42 Temperature Temperature Source Pulse Rate 84 85 Pulse Rate from SpO2 Sensor 84 83 Respiratory Rate 23 20 Respiratory Effort / Characteristics Respiratory Depth Blood Pressure 144/83 H Blood Pressure Mean 130 Pulse Oximetry 96 97 Oxygen Delivery Method Sepsis Recent Fever Within 48 Hours Sepsis New/Unexplained Change in Mental Status Sepsis Action Taken by Nursing 02/22/24 02:48 02/22/24 03:00 02/22/24 03:00 Temperature Temperature Source Pulse Rate 83 Pulse Rate from SpO2 Sensor 82 Respiratory Rate 23 Respiratory Effort / Characteristics Respiratory Depth Blood Pressure 167/89 H 167/89 H Blood Pressure Mean 139 139 Pulse Oximetry 95 Oxygen Delivery Method Sepsis Recent Fever Within 48 Hours Sepsis New/Unexplained Change in Mental Status Sepsis Action Taken by Nursing 02/22/24 03:06 02/22/24 03:12 02/22/24 03:24 Temperature Temperature Source Pulse Rate 82 79 83 Pulse Rate from SpO2 Sensor 82 78 80 Respiratory Rate 19 18 17 Respiratory Effort / Characteristics Respiratory Depth Blood Pressure Blood Pressure Mean Pulse Oximetry 95 96 96 Oxygen Delivery Method Sepsis Recent Fever Within 48 Hours Sepsis New/Unexplained Change in Mental Status Sepsis Action Taken by Nursing 02/22/24 03:30 02/22/24 03:45 02/22/24 03:51 Temperature Temperature Source Pulse Rate 81 76 Pulse Rate from SpO2 Sensor 80 76 Respiratory Rate 19 25 H Respiratory Effort / Characteristics Respiratory Depth Blood Pressure 163/86 H Blood Pressure Mean 119 Pulse Oximetry 97 96 Oxygen Delivery Method Sepsis Recent Fever Within 48 Hours Sepsis New/Unexplained Change in Mental Status Sepsis Action Taken by Nursing 02/22/24 04:00 02/22/24 04:00 Temperature Temperature Source Pulse Rate Pulse Rate from SpO2 Sensor Respiratory Rate Respiratory Effort / Characteristics Respiratory Depth Blood Pressure 150/90 H 150/90 H Blood Pressure Mean 134 134 Pulse Oximetry Oxygen Delivery Method Sepsis Recent Fever Within 48 Hours Sepsis New/Unexplained Change in Mental Status Sepsis Action Taken by Skilled Nursing Medications Current Medication List: was personally reviewed by ut Laboratory Data Attestation: I reviewed the patient's lab results. 02/22/24 07:29 02/22/24 07:29 Lab Results 02/22/24 Range/Units 01:56 WBC 5.63 (4.8-10.8) K/ul RBC 4.39 (4.20-5.40) M/uL Hgb 13.0 (12.0-16.0) g/dl Hct 37.9 (37.0-47.0) % MCV 86.3 (80.0-100.0) fL MCH 29.6 (25.0-34.0) pg MCHC 34.3 (32.0-36.0) g/dL RDW Std Deviation 39.0 (36.4-46.3) fL RDW Coeff of Chucky 12.4 (11.5-14.5) % Plt Count 188 (130-400) K/uL MPV 9.7 (9.4-12.4) fL Immature Gran % (Auto) 0.4 % Neut % (Auto) 64.5 % Lymph % (Auto) 23.6 % Whitman % (Auto) 6.7 % Eos % (Auto) 4.1 % Baso % (Auto) 0.7 % Neut # (Auto) 3.63 (1.40-6.50) K/uL Lymph # (Auto) 1.33 (1.20-3.40) K/uL Whitman # (Auto) 0.38 (0.11-0.59) K/uL Eos # (Auto) 0.23 (0.00-0.50) K/uL Baso # (Auto) 0.04 (0.00-0.20) K/uL Immature Gran # (Auto) 0.02 (0.01-0.20) K/uL PT 10.5 (9.0-12.0) Seconds INR 1.0 (0.9-1.1) APTT 23 (21-31) Seconds PTT Ratio 0.9 Sodium 135 L (136-145) mmol/L Potassium 4.0 (3.5-5.1) mmol/L Chloride 100 (98-107) mmol/L Carbon Dioxide 25 (21-32) mmol/L Anion Gap 10 (3-11) BUN 17 (6-23) mg/dl Creatinine 1.16 (0.6-1.2) mg/dl Est Cr Clr Drug Dosing Not Reportable Est GFR ( Amer) 55.2 ml/min Est GFR (Non-Af Amer) 47.7 ml/min BUN/Creatinine Ratio 14.7 (10-20) Glucose 148 H (70-99(Fasting)) mg/dl Calcium 9.4 (8.6-10.3) mg/dl Total Bilirubin 0.3 (0.2-1.0) mg/dl AST 14 (13-39) U/L ALT 9 (7-52) U/L Alkaline Phosphatase 73 (34-104) U/L Troponin I High Sens 15.8 H (0-14) pg/ml Total Protein 7.1 (6.0-8.3) gm/dl Albumin 4.1 (3.4-5.0) gm/dl Globulin 3.0 (2.5-4.0) gm/dl Albumin/Globulin Ratio 1.4 (0.9-2) Lipase 70 (11-82) U/L Procalcitonin < 0.02 (0-0.5) ng/ml TSH 2.341 (0.300-4.500) uIu/ml Administered Medications Acetaminophen (Acetaminophen 500 Mg Tab) 1,000 mg PO [facility] Stop: 03/23/24 08:59 Last Admin: 02/22/24 20:18 Dose: 1,000 mg Documented By: Admin: 02/22/24 08:16 Dose: 1,000 mg Documented By: COLT Aspirin (Aspirin 81 Mg Ectab) 81 mg PO [facility] Stop: 03/23/24 08:59 Last Admin: 02/22/24 08:16 Dose: 81 mg Documented By: COLT Atorvastatin Calcium (Atorvastatin 40 Mg Tab) 80 mg PO [facility] Stop: 03/23/24 20:59 Last Admin: 02/22/24 20:15 Dose: 80 mg Documented By: CHACORTA Carvedilol (Carvedilol 6.25 Mg Tab) 6.25 mg [facility] Stop: 03/23/24 16:59 Last Admin: 02/22/24 16:33 Dose: 6.25 mg Documented By: COLT Hydrochlorothiazide (Hydrochlorothiazide 25 Mg Tab) 12.5 mg PO [facility] Stop: 03/23/24 08:59 Last Admin: 02/22/24 08:17 Dose: 12.5 mg Documented By: COLT Magnesium Oxide (Magnesium Oxide 400 Mg Tab) 400 mg PO [facility] Stop: 03/23/24 08:59 Last Admin: 02/22/24 08:16 Dose: 400 mg Documented By: COLT Oxybutynin Chloride (Oxybutynin Chloride Xl 5 Mg Tabcr) 5 mg PO [facility] Stop: 03/23/24 08:59 Last Admin: 02/22/24 08:16 Dose: 5 mg Documented By: COLT Discontinued Medications Aspirin (Aspirin 81 Mg Chew) 243 mg PO NOW STA Stop: 02/22/24 01:50 Last Admin: 02/22/24 01:55 Dose: 243 mg Documented By: ROSE Carvedilol (Carvedilol 3.125 Mg Tab) 3.125 mg PO BID [facility] Stop: 03/23/24 08:59 Last Admin: 02/22/24 08:16 Dose: 3.125 mg Documented By: COLT Furosemide (Furosemide Inj 20 Mg/2 Ml Vial) 20 mg IV ONE ONE Stop: 02/22/24 09:57 Last Admin: 02/22/24 10:34 Dose: 20 mg Documented By: COLT Magnesium Sulfate/Dextrose (Magnesium Sulfate / D5w) 1 gm in 100 mls @ 50 mls/hr IV Q2H ARTIE Stop: 02/22/24 13:59 Last Infusion: 02/22/24 14:27 Dose: Infused Documented By: Admin: 02/22/24 12:27 Dose: 50 mls/hr Documented By: Infusion: 02/22/24 12:27 Dose: Infused Documented By: Admin: 02/22/24 10:34 Dose: 50 mls/hr Documented By: COLT Labetalol HCl (Labetalol Hcl Iv 5 Mg/Ml 20ml) 10 mg IV NOW STA Stop: 02/22/24 06:37 Last Admin: 02/22/24 06:41 Dose: 10 mg Documented By: ROSE Morphine Sulfate (Morphine Sulfate 2 Mg/Ml Carp) 1 mg IV NOW STA Stop: 02/22/24 04:31 Last Admin: 02/22/24 04:38 Dose: 1 mg Documented By: ROSE Imaging Data Radiologist's Impression: Chest X-Ray 02/22/24 01:45 XR chest 1V portable CLINICAL HISTORY: Chest pain, nonspecific TECHNIQUE: Single frontal radiograph of the chest was obtained. Comparison: Comparison is made to chest radiograph 09/04/2023 FINDINGS: Pacemaker defibrillator is seen. The cardiomediastinal silhouette is normal. Lungs are underinflated with interstitial thickening again seen. Superimposed airspace opacity in the left lung and right upper lung may be present. No evidence of pleural effusion or pneumothorax. IMPRESSION: Findings compatible with interstitial lung disease. Airspace opacities suggestive of atelectasis, pneumonia, and/or aspiration may be present. ACT 112: Negative or not required by law. Electronically signed by: Tao Sesay M.D. 02/22/2024 7:05 AM Discharge Plan Visit Data Chief Complaint: Chest Pain Stated Complaint: CHEST PAIN,GETTING WORSE ED Provider: Yasmin Goel Discharge Problem: Elevated troponin, Chest pain Patient Disposition: Admitted As Inpatient Discharge Instructions Interventions: ED Discharge Assessment Last Done: 02/22/24 04:41 Discharge Problem: Chest pain Qualifiers: Chest pain type: precordial pain Qualified Code(s): R07.2 - Precordial pain
[2024-02-22] MEDS: LABETALOL HCL IV 5 MG/ML 20ML IV STA (06:41)
--- NOTE | 2024-02-22 07:07 | XRay Report ---
XR chest 1V portable CLINICAL HISTORY: Chest pain, nonspecific TECHNIQUE: Single frontal radiograph of the chest was obtained. Comparison: Comparison is made to chest radiograph 09/04/2023 FINDINGS: Pacemaker defibrillator is seen. The cardiomediastinal silhouette is normal. Lungs are underinflated with interstitial thickening again seen. Superimposed airspace opacity in the left lung and right upp er lung may be present. No evidence of pleural effusion or pneumothorax. IMPRESSION: Findings compatible with interstitial lung disease. Airspace opacities suggestive of atelectasis, pne umonia, and/or aspiration may be present. ACT 112: Negative or not required by law. Electronically signed by: Tao Sesay M.D. 02/22/2024 7:05 AM
[2024-02-22 08:04] LABS: Basophils # (auto) 0.02 K/uL (0.00-0.20); Basophils % (auto) 0.4 %; Eosinophils # (auto) 0.19 K/uL (0.00-0.50); Eosinophils % (auto) 3.5 %; Hematocrit (blood only) 33.6 % (37.0-47.0); Hemoglobin 11.5 g/dl (12.0-16.0); Immature Granulocytes # (auto) 0.01 K/uL (0.01-0.20); Immature Granulocytes % (auto) 0.2 %; Lymphocytes % (auto) 22.1 %; Mean Corpuscular Hemoglobin 29.9 pg (25.0-34.0); Mean Corpuscular Hgb Conc 34.2 g/dL (32.0-36.0); Mean Corpuscular Volume 87.3 fL (80.0-100.0); Mean Platelet Volume 9.9 fL (9.4-12.4); Monocytes # (auto) 0.36 K/uL (0.11-0.59); Monocytes % (auto) 6.6 %; Neutrophils # (auto) 3.64 K/uL (1.40-6.50); Neutrophils % (auto) 67.2 %; Platelet Count 167 K/uL (130-400); RDW Coefficient of Variation 12.5 % (11.5-14.5); RDW Standard Deviation 39.8 fL (36.4-46.3); Red Blood Count 3.85 M/uL (4.20-5.40); White Blood Count 5.42 K/ul (4.8-10.8)
[2024-02-22 08:06] LABS: Anion Gap 5 (3-11); BUN Creatinine Ratio 17.5 (10-20); Blood Urea Nitrogen 17 mg/dl (6-23); Calcium 8.7 mg/dl (8.6-10.3); Carbon Dioxide 28 mmol/L (21-32); Chloride 103 mmol/L (98-107); Est GFR (African American) 68.6 ml/min; Est GFR (Non-African American) 59.2 ml/min; Glucose 127 mg/dl (70-99(Fasting)); Magnesium 1.6 mg/dl (1.7-2.4); Potassium 3.9 mmol/L (3.5-5.1); Sodium 136 mmol/L (136-145)
[2024-02-22] MEDS: ASPIRIN 81 MG ECTAB PO SCH (08:16)
[2024-02-22] MEDS: MAGNESIUM OXIDE 400 MG TAB PO SCH (08:16)
[2024-02-22] MEDS: ACETAMINOPHEN 500 MG TAB PO SCH (08:16)
[2024-02-22] MEDS: carvediloL 3.125 MG TAB PO SCH (08:16)
[2024-02-22] MEDS: OXYBUTYNIN CHLORIDE XL 5 MG TABCR PO SCH (08:16)
[2024-02-22] MEDS: hydroCHLOROthiazide 25 MG TAB PO SCH (08:17)
[2024-02-22 08:34] LABS: Thyroid Stimulating Hormone 2.341 uIu/ml (0.300-4.500)
[2024-02-22 08:37] LABS: Estimated Average Glucose 140 mg/dl; Hemoglobin A1C 6.5 % (4.5-5.6)
--- NOTE | 2024-02-22 09:34 | Electrocardiogram Report ---
Test Reason : Blood Pressure : */* mmHG Vent. Rate : 84 BPM Atrial Rate : 84 BPM P-R Int : 252 ms QRS Dur : 144 ms QT Int : 404 ms P-R-T Axes : 33 -44 133 degrees QTcB Int : 477 ms Sinus rhythm with 1st degree A-V block Left axis deviation Left bundle branch block Abnormal ECG When compared with ECG of 22-Feb-2024 01:46, Sinus rhythm has replaced Electronic ventricular pacemaker Confirmed by Sawyer Harry ([id number]) on 02/22/2024 9:33:52 AM Referred By: REFERRED SELF Confirmed By: Sawyer Harry
--- NOTE | 2024-02-22 09:35 | Electrocardiogram Report ---
Test Reason : Blood Pressure : */* mmHG Vent. Rate : 96 BPM Atrial Rate : 96 BPM P-R Int : * ms QRS Dur : 162 ms QT Int : 412 ms P-R-T Axes : * -63 102 degrees QTcB Int : 520 ms Ventricular-paced rhythm Abnormal ECG When compared with ECG of 04-Sep-2023 15:05, Electronic ventricular pacemaker has replaced Sinus rhythm Confirmed by Sawyer Harry ([id number]) on 02/22/2024 9:34:51 AM Referred By: REFERRED SELF Confirmed By: Sawyer Harry
--- NOTE | 2024-02-22 09:51 | XCELERA ---
[id number]
[2024-02-22] MEDS: MAGNESIUM SULFATE / D5W 1 GM/100 ML BAG IV SCH (10:34)
[2024-02-22] MEDS: FUROSEMIDE INJ 20 MG/2 ML VIAL IV ONE (10:34)
--- NOTE | 2024-02-22 12:15 | Cardiology Consultation ---
Date of Consultation February 22, 2024 Assessment & Plan (1) Chest pain: (2) Ischemic cardiomyopathy: (3) LBBB (left bundle branch block): (4) ICD (implantable cardioverter-defibrillator), biventricular, in situ: (5) S/P right coronary artery (RCA) stent placement: (6) History of placement of stent in LAD coronary artery: (7) History of placement of stent in LAD coronary artery: Plan 68-year-old woman with longstanding and somewhat complex cardiac history admitted with equivocal chest pain (poor historian). Left bundle branch block on ECG precludes electrocardiographic assessment, flat troponin curve suggest absence of acute coronary syndrome. Etiology of her chest discomfort is uncertain, difficult to exclude angina, although alternative explanations equally likely. Not enough evidence to proceed to cardiac catheterization at this point, would favor Lexiscan over dobutamine given presence of left bundle branch block, will order this study (for tomorrow if possible). She has been significantly hypertensive at times during her current hospitalization, no episodes of relative hypotension, therefore would titrate carvedilol upward, could continue to use labetalol for acute BP elevations. Etiology of her decline in LV function is uncertain, could be response of her ischemic cardiomyopathy to persistent BP elevations, her systolic function has waxed and waned over the years. Wall motion abnormalities are not in a focal pattern to suggest infarct, nor does her troponin curve support this. Further recommendations based on results of Lexiscan. History of Present Illness Reason for Consultation: chest pain Requesting Physician: Ludin Fish MD Attending Physician: Ludin Fish MD History of Present Illness 68-year-old woman with history of ischemic cardiomyopathy (status post remote LAD/RCA stents), paroxysmal ventricular tachycardia/biventricular ICD, paroxysmal atrial fibrillation, and left bundle branch block was admitted earlier today with intermittent chest pain over the past several days. She does have history of mild dementia and was only able to offer a limited history without much detail. She noted 8/10 severity chest discomfort occurring multiple times daily and sometimes lasting "all day long" but denies any associated symptoms, specifically noting no dyspnea, diaphoresis, palpitations, or lightheadedness. She has had previous episodes of chest pain with negative cath (2011) and multiple episodes of requiring PCI (2008, 2015, 2019). She is unable to walk on a treadmill, ambulation is limited by bilateral foot pain. Evaluation here with left bundle branch block on ECG, minimally elevated but flat troponin curve (3133 range). At the time of my evaluation this morning, she had no somatic complaints. Allergies Allergy/AdvReac Type Severity Reaction Status Date / Time latex Allergy Intermediate HIVES Verified 09/07/23 13:46 adhesive Allergy Mild SKIN Verified 09/07/23 13:46 IRRITATION penicillin V Allergy Unknown Unknown Verified 09/07/23 13:46 aspirin AdvReac Mild STOMACH Verified 09/07/23 13:46 UPSET Home Medications Medication Instructions Recorded Confirmed Type nitroglycerin 0.4 mg sublingual 0.4 mg sublingual DIRECTED PRN 06/16/18 02/22/24 History tablet (Nitrostat) Chest Pain atorvastatin 80 mg tablet 80 mg PO HS 03/12/21 02/22/24 History solifenacin 5 mg tablet (Vesicare) 5 mg PO QAM 03/12/21 02/22/24 History acetaminophen 500 mg tablet 1,000 mg PO AMHS 02/15/23 02/22/24 History (Tylenol Extra Strength) aspirin 81 mg tablet,delayed 81 mg PO QAM 04/28/23 02/22/24 History release magnesium oxide 400 mg PO QAM 04/28/23 02/22/24 History carvedilol 3.125 mg tablet 3.125 mg PO BID 09/04/23 02/22/24 History hydrochlorothiazide 12.5 mg tablet 12.5 mg PO QAM 02/22/24 02/22/24 History tramadol 50 mg tablet 50 mg PO UD PRN Pain 02/22/24 02/22/24 History Patient History Medical History S/P right coronary artery (RCA) stent placement (2015) History of placement of stent in LAD coronary artery (2008) History of placement of stent in LAD coronary artery (2019) Hypomagnesemia Acute hypokalemia Non-ST elevation ND (NSTEMI) Pneumonia Acid reflux disease with ulcer Alcohol abuse, unspecified Anxiety state, unspecified Anxiety disorder Atrial fibrillation Coronary artery disease Cardiac arrest Cardiomyopathy Congestive heart failure, unspecified Congestive cardiomyopathy Cor athrscl-uns vessel Depressive disorder, not elsewhere classified Dysphagia, oropharyngeal phase Fecal incontinence Goiter Celia's thyroiditis Other and unspecified hyperlipidemia Ocular hypertension, unspecified eye Lumbago Lumbar compression fracture Old myocardial infarct Postmenopausal atrophic vaginitis Subclinical hypothyroidism Type 2 diabetes mellitus Unknown whether patient has any health problems Urinary tract infection FREQUENT Cancer SKIN CANCER Hypertension Anxiety GERD (gastroesophageal reflux disease) HLD (hyperlipidemia) CAD (coronary artery disease) Surgical History History of appendectomy History of cardiac cath 1 STENT (2016 @ [facility]) History of esophagogastroduodenoscopy (EGD) History of colonoscopy History of tonsillectomy S/P placement of cardiac pacemaker ~15-20 YEARS AGO[address] FOLLOWS WITH DR RUBI AND LAST CHECKED 4 MONTHS AGO History of cholecystectomy Family History Mother Family history of diabetes mellitus Blind Hearing loss Hypertension Allergies Asthma Sister Family history of diabetes mellitus Coronary heart disease Father No problems noted. 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 Afebrile. BP 147/81 mmHg. Pulse 70 bpm and regular. Respirations 20 but unlabored. Skin: no ecchymoses or generalized lesions. HEENT: unremarkable. Neck: JVP at the clavicle at 90 degrees, no carotid bruits. Lungs: clear. Cardiac: regular rhythm, normal S1-2, no murmur. Abdomen: benign. Extremities: no edema, pulses intact. Neurologic: normal affect and conversation, nonfocal. Results & Data Laboratory Results Troponins as noted. Normal electrolytes, BUN 17, creatinine 0.97. Normal WBC, hemoglobin 11.5. BNP 171 (only prior value was 365 in 2022) Diagnostic Findings Chest x-ray showed interstitial lung disease with some airspace opacities. To my eye it looks similar to the September 2023 study. Echocardiogram showed EF 40 to 45%, septal motion consistent with conduction abnormality, moderate global hypokinesis of the left ventricle, moderate LVH, mild MR/TR, mild pulmonary hypertension. Compared with 02/15/2023 study, mild decline left ventricular systolic function and mild pulmonary hypertension now seen. PG Care Time/CCT Total # of Minutes Spent Total Time Spent with Patient: Total time spent is greater than 50% in coordination of care (as documented) at patient's floor/unit and/or counseling patient: Coding Level of Care Code 01605 IN/OBS CONSULT LVL 4,60M Diagnoses Chest pain R07.9 Ischemic cardiomyopathy I25.5 LBBB (left bundle branch block) I44.7 ICD (implantable cardioverter-defibrillator), biventricular, in situ Z95.810 S/P right coronary artery (RCA) stent placement Z95.5 History of placement of stent in LAD coronary artery Z95.5
--- NOTE | 2024-02-22 13:09 | Communication Note ---
Date of Service: February 22, 2024 Patient seen and examined at bedside. She is comfortably sitting on the bed; not in distress She denies any chest pain; reports mild shortness of breath on exertion. Vital signs stable and she is saturating well on room air Assessment/plan Constitutional: Alert oriented x 3; not in distress. Respiratory: Bilateral basal fine crackles are present Cardiovascular: RRR, no murmur, no edema Vessels: no JVD or carotid bruit Chest: normal inspection of chest Abdomen: normal bowel sounds, soft, nontender, no hepatosplenomegaly Musculoskeletal: no cyanosis or clubbing, extremities motor strength 5/5 Skin: no rashes, warm and dry normal turgor Neurologic: PERRL, EOMI, accommodation nl, no face palsy, no dysarthria CN's II- XI intact bilaterally and moves all extremities Psychiatric: A+Ox3, euthymic affect Assessment/plan Chest pain Ischemic cardiomyopathy Status post LAD, RCA stent placement Patient presents with chest pain. EKG with left bundle branch block. High sensitive troponin elevated with flat trend Cardiology evaluated the patient; recommended Lexiscan over dobutamine given presence of left bundle branch block. Echocardiogram shows EF of 40 to 45%; septal motion consistent with conduction abnormality. Coreg increased to 6.25 as recommendation by cardiology Patient to undergo Lexiscan; additional recommendation based on the Lexiscan Monitor on telemetry Please note the above document was generated using voice recognition software. It may contain grammatical, syntax or spelling errors. Any formal questions or concerns about the content, text or information contained within the body of this dictation should be directly addressed to the provider for clarification
[2024-02-22] MEDS: carvediloL 6.25 MG TAB PO SCH (16:33)
[2024-02-22] MEDS: ATORVASTATIN 40 MG TAB PO SCH (20:15)
[2024-02-22] MEDS: ACETAMINOPHEN 325 MG TAB PO PRN (20:16)
[2024-02-22] MEDS ORDERED: GLUCAGON FOR INJ 1 MG VIAL SQ PRN (23:21)
[2024-02-22] MEDS ORDERED: GLUCOSE 10 TAB/TUBE PO PRN (23:21)
[2024-02-22] MEDS ORDERED: GLUCOSE 40% GEL 15 GM TUBE PO PRN (23:21)
[2024-02-22] MEDS ORDERED: CARBOHYDRATES FOR HYPOGLYCEMIA PO PRN (23:21)
[2024-02-22] MEDS ORDERED: DEXTROSE 50% 50 ML SYRINGE IV PRN (23:21)
[2024-02-23] MEDS: INSULIN ASPART PER UNIT CHARGE SC SCH ×2 (00:37→17:40)
[2024-02-23 06:02] LABS: Basophils # (auto) 0.04 K/uL (0.00-0.20); Basophils % (auto) 0.6 %; Eosinophils # (auto) 0.28 K/uL (0.00-0.50); Eosinophils % (auto) 4.1 %; Hematocrit (blood only) 34.4 % (37.0-47.0); Hemoglobin 11.9 g/dl (12.0-16.0); Immature Granulocytes # (auto) 0.02 K/uL (0.01-0.20); Immature Granulocytes % (auto) 0.3 %; Lymphocytes # (auto) 1.36 K/uL (1.20-3.40); Lymphocytes % (auto) 19.8 %; Mean Corpuscular Hemoglobin 29.5 pg (25.0-34.0); Mean Corpuscular Hgb Conc 34.6 g/dL (32.0-36.0); Mean Corpuscular Volume 85.1 fL (80.0-100.0); Mean Platelet Volume 9.8 fL (9.4-12.4); Monocytes % (auto) 7.3 %; Neutrophils # (auto) 4.66 K/uL (1.40-6.50); Neutrophils % (auto) 67.9 %; Platelet Count 186 K/uL (130-400); RDW Coefficient of Variation 12.5 % (11.5-14.5); RDW Standard Deviation 38.5 fL (36.4-46.3); Red Blood Count 4.04 M/uL (4.20-5.40); White Blood Count 6.86 K/ul (4.8-10.8)
[2024-02-23 06:11] LABS: BUN Creatinine Ratio 22.7 (10-20); Calcium 9.3 mg/dl (8.6-10.3); Creatinine Clr Calc Pharmacy 46.6 ml/min; Est GFR (African American) 68.6 ml/min; Est GFR (Non-African American) 59.2 ml/min; Potassium 3.8 mmol/L (3.5-5.1)
--- NOTE | 2024-02-23 08:45 | Electrocardiogram Report ---
Test Reason : Blood Pressure : */* mmHG Vent. Rate : 69 BPM Atrial Rate : 69 BPM P-R Int : 274 ms QRS Dur : 148 ms QT Int : 518 ms P-R-T Axes : -6 -53 160 degrees QTcB Int : 555 ms Sinus rhythm with 1st degree A-V block with Premature atrial complexes Left axis deviation Left bundle branch block Abnormal ECG When compared with ECG of 22-Feb-2024 04:34, Premature atrial complexes are now Present T wave inversion now evident in Inferior leads T wave inversion now evident in Anterior leads QT has lengthened Confirmed by Sawyer Harry ([id number]) on 02/23/2024 8:45:08 AM Referred By: REFERRED SELF Confirmed By: Sawyer Harry
--- NOTE | 2024-02-23 08:55 | Hospitalist Progress Note ---
Date of Service February 23, 2024 Assessment & Plan (1) Chest pain: Plan: 68-year-old female with past medical significant for hyperlipidemia, hypothyroidism, prediabetes, history of pneumonia, history of atrioventricular complete block, history of transient atrial fibrillation, history of paroxysmal ventral tachycardia, history of ischemic cardiomyopathy, status post ICD, history of CAD s/p stent, hypertension, venous insufficiency history of upper GI bleed, history of esophageal dysphagia, CKD stage III, acute incontinence of urine, osteoporosis, mild dementia, mixed hearing loss bilateral, scalp psoriasis, depression, anxiety, history of alcohol dependence, comes because of on and off chest pain for last few days. Having pressure-like feeling in the chest radiating to back and left arm. Chest pain Ischemic cardiomyopathy Status post LAD, RCA stent placement Patient presents with chest pain. EKG with left bundle branch block. High sensitive troponin elevated with flat trend Cardiology evaluated the patient;plan for cardia cath today Echocardiogram shows EF of 40 to 45%; septal motion consistent with conduction abnormality. Patient was admitted to medical floor; cardiology was consulted for comanagement. Patient underwent left heart catheterization; prior stents were patent with moderate in-stent restenosis. Cardiology recommended to increase beta-jus dose. Coreg was increased to 6.25 mg twice a day. Monitor right radial artery site for recurrence of bleeding History of transient atrial fibrillation On Coreg and aspirin Not on anticoagulation History of atrioventricular complete block History of proximal ventral tachycardia History of ischemic cardiomyopathy EF was 25 to 30% in October 2010 Echo in February 2023 normal EF Pacemaker was converted to biventricular ICD Hypertension On Coreg and hydrochlorothiazide, continue Will monitor CKD stage III Creatine at baseline History of hypothyroidism Tsh wnl Type 2 DM Patient was also found to have HbA1c of 6.5% ; discussion was done with the patient regarding dietary measures versus medication. Wanted to continue dietary measures for the time being. She will need to follow-up with her PCP to discuss further treatment options if she decided to use medications DVT prophylaxis SCDs Disposition Med/telemetry Full code Time spent evaluating patient, direct bedside care, chart review, placing orders, interpretation of diagnostic studies, discussion with consultants, patient, and family members, as well as other required patient management activities is 50 minutes Please note the above document was generated using voice recognition software. It may contain grammatical, syntax or spelling errors. Any formal questions or concerns about the content, text or information contained within the body of this dictation should be directly addressed to the provider for clarification Admission and Anticipated Discharge Date Admission Date: February 22, 2024 Subjective Patient seen and examined at bedside. Comfortable; not in distress. no recurrence of chest pain Patient had bleeding over right radial artery after left heart cath. Review of Systems Review of Systems: All systems reviewed & are unremarkable except as noted in Subjective Physical Exam Physical Exam: Constitutional: Alert, orientedX 3 Respiratory: normal respiratory effort, lungs clear to auscultation, no wheeze, rales, rhonchi. Normal insp/exp effort, no accessory muscle use Cardiovascular: RRR, no murmur, no edema Vessels: no JVD or carotid bruit Chest: normal inspection of chest Abdomen: normal bowel sounds, soft, nontender, no hepatosplenomegaly Musculoskeletal: no cyanosis or clubbing, extremities motor strength 5/5. Pressure maintained over right radial artery; no active bleeding presently. Skin: no rashes, warm and dry normal turgor Neurologic: PERRL, EOMI, accommodation nl, no face palsy, no dysarthria CN's II- XI intact bilaterally and moves all extremities Psychiatric: A+Ox3, euthymic affect Results & Data Results & Data Vital Signs (Past 12 Hours) Vital Signs Temp Pulse Pulse Resp BP Pulse Ox O2 Del Method 02/23/24 07:29 36.6 C 66 16 131/71 94 Room Air 02/23/24 06:42 71 02/23/24 06:31 144/75 H 02/23/24 01:52 36.5 C 73 16 177/93 H 97 Room Air 02/22/24 22:44 36.6 C 70 16 151/77 H 95 Room Air 02/22/24 22:06 Room Air 02/22/24 21:48 63 (1) Chest pain Chest pain type: precordial pain Qualified Code(s): R07.2 - Precordial pain
--- NOTE | 2024-02-23 09:44 | Pre Anesthesia Assessment ---
Date of Service February 23, 2024 Pre Sedation Assessment Vital Signs Temp Pulse Pulse Pulse Resp BP Pulse Ox 02/23/24 09:28 69 20 141/70 H 96 02/23/24 07:29 36.6 C 66 16 131/71 94 02/23/24 06:42 71 02/23/24 06:31 144/75 H 02/23/24 01:52 36.5 C 73 16 177/93 H 97 02/22/24 22:44 36.6 C 70 16 151/77 H 95 02/22/24 22:06 02/22/24 21:48 63 02/22/24 19:25 36.5 C 74 18 128/65 95 02/22/24 15:24 36.4 C L 84 18 145/83 H 94 02/22/24 13:31 73 02/22/24 11:11 36.5 C 70 20 147/81 H 96 02/22/24 09:48 75 H 162/76 H 97 O2 Del Method 02/23/24 09:28 Room Air 02/23/24 07:29 Room Air 02/23/24 06:42 02/23/24 06:31 02/23/24 01:52 Room Air 02/22/24 22:44 Room Air 02/22/24 22:06 Room Air 02/22/24 21:48 02/22/24 19:25 Room Air 02/22/24 15:24 Room Air 02/22/24 13:31 02/22/24 11:11 Room Air 02/22/24 09:48 Room Air Cardiovascular Additional Comments: RRR Systolic murmur no edema 1+ radial pulse Respiratory normal respiratory effort, lungs clear to auscultation Pre-Sedation Airway Assessment Smoking Status: Never smoker Hx Sleep Apnea: No Hx Difficult Intubation: No Short, Thick Neck: No Thyromental Distance: > or= 3.5 Finger Breadths Oral Cavity: + Dentures Mallampati Class: II ASA: ASA4 NPO Status Date of Last Intake of Fluids: 02/23/24 Date of Last Intake of Solid Food: 02/22/24 Notes The planned sedation has been discussed with the patient. Informed Consent was obtained. I have identified the patient, determined the appropriateness of lorraine tion and have assessed the patient immediately prior to the procedure. All medicine(s) and interventions are by my order.
[2024-02-23] MEDS: MIDAZOLAM HCL 1 MG/ML 2ML VIAL ONE (10:17)
[2024-02-23] MEDS: fentaNYL citrate PF 100 MCG/2 ML VIAL ONE (10:18)
[2024-02-23] MEDS: OPTIRAY 350 ONE (10:19)
[2024-02-23] MEDS: niCARdipine HCL INJ 2.5 MG/ML 10 ML AMP ONE (10:19)
[2024-02-23] MEDS: HEPARIN (PORCINE) 1000 UNIT/ML 10 ML (CATH LAB USE ONLY) ONE (10:19)
[2024-02-23] MEDS: NITROGLYCERIN/D5W 100MCG/ML 20ML SYR ONE (10:20)
--- NOTE | 2024-02-23 10:21 | Post Anesthesia Assessment ---
Date of Service February 23, 2024 Post Sedation Assessment Vital Signs Temp Pulse Pulse Pulse Resp BP Pulse Ox 02/23/24 09:28 69 20 141/70 H 96 02/23/24 07:29 36.6 C 66 16 131/71 94 02/23/24 06:42 71 02/23/24 06:31 144/75 H 02/23/24 01:52 36.5 C 73 16 177/93 H 97 02/22/24 22:44 36.6 C 70 16 151/77 H 95 02/22/24 22:06 02/22/24 21:48 63 02/22/24 19:25 36.5 C 74 18 128/65 95 02/22/24 15:24 36.4 C L 84 18 145/83 H 94 02/22/24 13:31 73 02/22/24 11:11 36.5 C 70 20 147/81 H 96 O2 Del Method 02/23/24 09:28 Room Air 02/23/24 07:29 Room Air 02/23/24 06:42 02/23/24 06:31 02/23/24 01:52 Room Air 02/22/24 22:44 Room Air 02/22/24 22:06 Room Air 02/22/24 21:48 02/22/24 19:25 Room Air 02/22/24 15:24 Room Air 02/22/24 13:31 02/22/24 11:11 Room Air Recovery Score Activity: Moves 4 extremities Respiration: Deep Breath/Cough Circulation: +/-20% PreAnes Value Consciousness: Fully Awake Oxygen Saturation: > 92% On Room Air Discharge Sedation Level of Care: Fast Track Phase II Post Sedation Plan On clinical assessment, the patient appears to have tolerated the sedation without complications. Patient is recovering as anticipated. Patient will continue to be monitored by nursing and may be discharged when sedation discharge criteria are met per below protocol. Upon Completions of procedure up to 15 minutes continue every 5 minute vital signs and the P.A.R. score; then discharge to a Phase I or Fast Track to Phase II per the following guidelines: * Discharge Patient to appropriate Phase II area if PAR is 8 or greater or return to pre- procedure baseline. The post - procedure orders will be as directed. * If PAR score is less than 8 or not return to pre-procedure baseline then patient will follow Phase I monitoring till PAR is reached for Phase II. The Phase I may be done in procedure room or may call to secure a Phase I area. * If naloxone or flumazenil are used for reversal, hold in Phase I for continued monitoring from when last reversal dose was given for a minimum of 60 minutes or longer pending the nurse and/or physician discretion of patient condition before discharge to Phase II. Please call the Sedation Physician to re-evaluate and complete post-note for discharge to Phase II area. Do NOT discharge from procedure sedation or Phase 1 until post- sedation evaluation note is complete by procedure /sedation MD Sedation Discharge Instructions to be given to the patient at discharge to home. [facility] [place] Procedure Codes (Charges) Indication for Procedure Indication for procedure: NSTEMI H/O MV CAD Sedation/Anesthesia Procedure 1: Sedation/Anesthesia: 22459 Mod Sedation by the same physician;Init15 Min Child Age 5 & Up (Initial 15 min, start time 1001, end time 1016) Total Sedation Time (minutes): 15
--- NOTE | 2024-02-23 10:51 | Cardiac Catheterization ---
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) D2 (% Stenosis): Normal D3 (% Stenosis): Normal Circumflex (% Stenosis): Proximal (Calcified diffuse 60%) OM1 (% Stenosis): Proximal (40%) L PL1 (% Stenosis): Normal RCA (% Stenosis): Proximal (Calcified mild) and Mid (Calcified 50 to 60%) R PDA (% Stenosis): Normal R PL1 (% Stenosis): Normal Diagnostic Physicians Name: Wilson Morales MD, PhD Closure Device Percutaneous Entry Location: Radial Closure Device: Radial Band Recommendations: Medical Therapy and/or Counseling Cardiac Cath Procedure Full Procedure Date February 23, 2024 Pre-Procedure Diagnosis Pre-Procedure Diagnosis: Non STEMI AUC Score AUC Score: 7 Post-Procedure Diagnosis Post-Procedure Diagnosis: Moderate CAD Procedure(s) Performed Procedure(s) Performed: Coronary Angiography Bicycle Inspector Wilson Morales MD, PhD Estimated Blood Loss Estimated Blood Loss: 5 cc Medication(s) Medication(s): Fentanyl, Heparin, Lidocaine 1%, Nicardipine, Nitroglycerin and Versed Summary of Findings Brief description: Patient was brought to the cardiac catheterization suite where she was shaved and prepped in a sterile fashion. Sedated using IV Versed and fentanyl. Soft tissues of the right wrist were anesthetized using 2 mL of 1% Xylocaine. The right radial artery was accessed with a modified Seldinger technique and a 6 Maltese radial artery glide sheath was placed. Patient was provided anticoagulation with IV heparin and antispasmodics including nicardipine and nitroglycerin. All catheters were advanced and exchanged over a 0.035 J-tip wire. Left coronary angiography in orthogonal views with a 5 M[place]ese [place] 4 diagnostic catheter. Right coronary angiography in orthogonal views with a 5 Maltese 3 DRC diagnostic catheter. Catheters were removed. Radial artery sheath was removed. Hemostasis was obtained using the radial band. Patient remained hemodynamically stable and asymptomatic. She was returned to the recovery area. This ended the case. Coronary angiography findings: QGI-iozjp-jqmaqst vessel which trifurcates into LAD, circumflex, and ramus. There is diffuse mild luminal irregularities. LAD-the medium to large caliber vessel which is transapical. There is calcification and stent train beginning in the proximal segment through the mid segment. This has diffuse in-stent restenosis of less than 40%. Beyond the mid segment the LAD appears to be around 2 mm in diameter and has only mild luminal irregularities. The LAD provides a small caliber D1 which is 100% occluded proximally but fills via left to left collateralization. There is then a small to medium caliber D2 and a small to medium caliber D3. These vessels have diffu se mild disease. Ramus-this is small to medium in caliber with proximal severe disease of 70 to 80%. Too small for PCI. LCx-this is medium caliber and nondominant. Proximally there is diffuse calcified disease of up to 60%. Vessel gives the first OM1 which has proximal 40% stenosis and then becomes larger and branches without any disease. The AV groove circumflex in the mid segment has diffuse mild disease and travels distally where it terminates as a small posterolateral branch. RCA-medium to large caliber. It is dominant. The proximal segment is calcified but has no significant disease. Then as it transitions to the mid segment there is a calcified long stenosis up to 50 to 60%. Beyond this the epicardial vessel has no angiographically significant disease and then it bifurcates into medium caliber posterior lateral and medium caliber PDA. These vessels have no angiographically significant disease. Summary: 1. Prior stents are patent but with moderate in-stent restenosis 2. Compared to prior study (angiography directly reviewed) the current study shows essentially unchanged or slightly improved disease in the large epicardial vessels. The first diagonal is now completely occluded whereas before it was severely diseased and filled not only via collateralization but also through antegrade flow. On current study there are no appropriate lesions for PCI at this time. 3. Continue guideline directed medical therapy for secondary prevention of coronary disease. 4. We can increase the antianginal regimen as tolerated. Hemodynamics Rest Ao:: 100/64 mmHg Final Ao: 111/72 mmHg LV: Negative except as per HPI Recommendations Recommendations: Medical Therapy and/or Counseling Radiation Exposure (mGy) 551 mGy, fluoroscopy time 2.8 minutes Contrast (mls) 55 Anesthesia 1 mg Versed, 25 mcg fentanyl IV. Start time 1001, end time 1016 Procedural Complication(s) None Disposition Mid Teacher Holding/Recovery I attest to the content of the Intraoperative Record and any orders documented therein. Any exceptions are noted below. [facility] Card Cath Procedure Codes Cardiac Catheterization Procedure 1: Cardiovascular Cath Procedures: 31581 Coronaries Moderate Sedation Procedure 1: Sedation/Anesthesia: 18262 Mod Sedation by the same physician;Init15 Min Child Age 5 & Up (Initial 15-minute, start time 1001, end time 1016) PG Care Time/CCT Total # of Minutes Spent Total Time Spent with Patient: Total time spent is greater than 50% in coordination of care (as documented) at patient's floor/unit and/or counseling patient:
--- NOTE | 2024-02-23 11:49 | Discharge Summary ---
Date of Service February 23, 2024 Admission HPI Per Admitting Provider 68-year-old female with past medical history significant for hyperlipidemia, hypothyroidism, prediabetes, history of pneumonia, history of atrioventricular complete block, history of transient atrial fibrillation, history of paroxysmal ventral tachycardia, history of ischemic cardiomyopathy, status post ICD, history of CAD s/p stent, hypertension, venous insufficiency, history of upper GI bleed, history of esophageal dysphagia, CKD stage III, incontinence of urine, osteoporosis, mild dementia, mixed hearing loss bilateral, scalp psoriasis, depression, anxiety, history of alcohol dependence, comes because of on and off chest pain for last few days. Having pressure-like feeling in the chest radiating to back and left arm. Today she took aspirin, Tylenol and tramadol and nitro for pain. She does not know what helped the pain go away. Currently the patient is chest pain-free. Denies any headache. No dizziness. Vision is okay. No runny nose or sore throat. No cough. No nausea. Has some shortness of breath breath. No abdominal pain. Normal bowel and bladder movements. Patient is somewhat hard to hear. Hemodynamics are okay. Past medical history. As mentioned above Past surgical history. ICD placement, ligation of oviducts, s/p cardiac stent placement, large sebaceous cyst removal from the chest wall, cholecystectomy. Social history. . No smoking. Alcohol occasional. No drug use. Family history. Sister has heart disorder. Hypertension. Anxiety. Mother had hypertension. Anxiety. Admission Exam Per Admitting Provider General- Not in distress Head- atraumatic Eyes- PERRL. ENT- oropharynx clear Neck- supple, no JVD. Lungs- clear to auscultation no wheezing or crackles Heart- regular rate and rhythm; no murmur, no gallop. Abdomen- normal bowel sounds, soft, nontender, no distension Extremities- no pretibial edema, no erythema seen. Neuro- alert, oriented PERRL, EOMI; no facial palsy; no dysarthria; moves extremities. Principal Diagnosis Chest pain, ACS ruled out Discharge Exam Constitutional: Alert, orientedX 3 Respiratory: normal respiratory effort, lungs clear to auscultation, no wheeze, rales, rhonchi. Normal insp/exp effort, no accessory muscle use Cardiovascular: RRR, no murmur, no edema Vessels: no JVD or carotid bruit Chest: normal inspection of chest Abdomen: normal bowel sounds, soft, nontender, no hepatosplenomegaly Musculoskeletal: no cyanosis or clubbing, extremities motor strength 5/5 Skin: no rashes, warm and dry normal turgor Neurologic: PERRL, EOMI, accommodation nl, no face palsy, no dysarthria CN's II- XI intact bilaterally and moves all extremities Psychiatric: A+Ox3, euthymic affect Discharge Data Allergies Allergy/AdvReac Type Severity Reaction Status Date / Time latex Allergy Intermediate HIVES Verified 09/07/23 13:46 adhesive Allergy Mild SKIN Verified 09/07/23 13:46 IRRITATION penicillin V Allergy Unknown Unknown Verified 09/07/23 13:46 aspirin AdvReac Mild STOMACH Verified 09/07/23 13:46 UPSET Consultations 02/22/24 03:12 ED Decision to Admit Stat 02/22/24 08:00 Consult Cardiology Routine Procedures Performed Operation Date: 02/23/24 09:30 Actual Procedures p Cineradiography w/Routine Exam - Wilson Morales MD, PhD p Cath, Coronaries ONLY (no LV) - Wilson Morales MD, PhD Ordered Studies 02/23/24 06:26 CL Cath Imgs for PACS use only Routine Hospital Course (1) Chest pain: 68-year-old female with past medical significant for hyperlipidemia, hypothyroidism, prediabetes, history of pneumonia, history of atrioventricular complete block, history of transient atrial fibrillation, history of paroxysmal ventral tachycardia, history of ischemic cardiomyopathy, status post ICD, history of CAD s/p stent, hypertension, venous insufficiency history of upper GI bleed, history of esophageal dysphagia, CKD stage III, acute incontinence of ur ine, osteoporosis, mild dementia, mixed hearing loss bilateral, scalp psoriasis, depression, anxiety, history of alcohol dependence, comes because of on and off chest pain for last few days. Having pressure-like feeling in the chest radiating to back and left arm. Chest pain Ischemic cardiomyopathy Status post LAD, RCA stent placement Demand Ischemia Patient presents with chest pain. EKG with left bundle branch block. High sensitive troponin elevated with flat trend Cardiology evaluated the patient;plan for cardia cath today Echocardiogram shows EF of 40 to 45%; septal motion consistent with conduction abnormality. Patient was admitted to medical floor; cardiology was consulted for comanagement. Patient underwent left heart catheterization; prior stents were patent with moderate in-stent restenosis. Cardiology recommended to increase beta-jus dose. Coreg was increased to 6.25 mg twice a day. Patient was also found to have HbA1c of 6.5% ; discussion was done with the patient regarding dietary measures versus medication. Wanted to continue dietary measures for the time being. She will need to follow-up with her PCP to discuss further treatment options if she decided to use medications. Please note the above document was generated using voice recognition software. It may contain grammatical, syntax or spelling errors. Any formal questions or concerns about the content, text or information contained within the body of this dictation should be directly addressed to the provider for clarification Total Time Total Time Spent Total Time Spent (In Minutes): 45 Total Time Includes: Examination of the Patient, Discharge Planning, Medication Reconciliation, Communication With Other Providers and Other Discharge Plan Discharge Items Patient Disposition: Home - Self-Care Reason For Visit: CHEST PAIN Discharge Diagnosis: Home, ACS ruled out Activity: Resume your previous activity Non-emergency contact: Primary Care Provider Call non-emergency contact if: you have any medication questions and your symptoms worsen Follow-up/Referrals: Luzma Yu MD [Primary Care Provider] - ( ) Diet: Regular and Carb Consistent or DM2 Addtl Attending Provider Instructions: You were admitted to the hospital due to chest pain. You were evaluated by cardiology during the hospitalization and underwent left heart cath. Your prior stents are patent and working well. Your dose of Coreg has been increased to 6.25 mg twice a day. A new prescription has been sent to your pharmacy. You were found to have type 2 diabetes mellitus with HbA1c of 6.5 percentage. Please continue to maintain carb controlled diet (low carbohydrate food). An appointment with your primary care doctor has been made to discuss future option for medication. Pending Studies at Discharge: No Stand-Alone Forms: My [employer], Smoking Cessation Medications and DC Order Prescriptions: New carvedilol 6.25 mg Tablet 6.25 mg PO BIDM Qty: 60 0RF Continued nitroglycerin [Nitrostat] 0.4 mg Tablet, Sublingual 0.4 mg Sublingual DIRECTED PRN (Reason: Chest Pain) Rx Instructions: PLACE ONE TABLET UNDER THE TONGUE EVERY 5 MINUTES FOR UP TO 3 DOSES OVER 15 MINUTES IF NEEDED FOR CHEST PAIN solifenacin [Vesicare] 5 mg tablet 5 mg PO QAM atorvastatin 80 mg tablet 80 mg PO HS acetaminophen [Tylenol Extra Strength] 500 mg Tablet 1,000 mg PO AMHS magnesium oxide 400 mg magnesium capsule 400 mg PO QAM aspirin 81 mg Tablet,Delayed Release (Dr/Ec) 81 mg PO QAM tramadol 50 mg tablet 50 mg PO UD PRN (Reason: Pain) hydrochlorothiazide 12.5 mg tablet 12.5 mg PO QAM Discontinued carvedilol 3.125 mg tablet 3.125 mg PO BID Admission Data Admit Date/Time: 02/22/24 04:03 Attending Provider: Ludin Fish Admit Provider: Caleb Murphy Primary Care Provider: Luzma Yu Other Providers: López Dailey
[2024-02-23] MEDS ORDERED: Nursing to Pharmacy Communication SCH (17:30)
[2024-02-23] MEDS: MELATONIN 3 MG TAB PO PRN (20:58)
[2024-02-23 23:41] VITALS: O2SAT 95
[2024-02-24 06:15] LABS: Basophils # (auto) 0.03 K/uL (0.00-0.20); Basophils % (auto) 0.4 %; Eosinophils # (auto) 0.28 K/uL (0.00-0.50); Eosinophils % (auto) 4.2 %; Hematocrit (blood only) 33.7 % (37.0-47.0); Hemoglobin 11.7 g/dl (12.0-16.0); Immature Granulocytes # (auto) 0.02 K/uL (0.01-0.20); Immature Granulocytes % (auto) 0.3 %; Lymphocytes % (auto) 17.8 %; Mean Corpuscular Hemoglobin 29.4 pg (25.0-34.0); Mean Corpuscular Hgb Conc 34.7 g/dL (32.0-36.0); Mean Corpuscular Volume 84.7 fL (80.0-100.0); Mean Platelet Volume 9.8 fL (9.4-12.4); Monocytes # (auto) 0.49 K/uL (0.11-0.59); Monocytes % (auto) 7.3 %; Neutrophils # (auto) 4.72 K/uL (1.40-6.50); Platelet Count 171 K/uL (130-400); RDW Coefficient of Variation 12.2 % (11.5-14.5); RDW Standard Deviation 37.3 fL (36.4-46.3); Red Blood Count 3.98 M/uL (4.20-5.40); White Blood Count 6.74 K/ul (4.8-10.8)
--- NOTE | 2024-02-24 07:18 | Electrocardiogram Report ---
Test Reason : Blood Pressure : */* mmHG Vent. Rate : 57 BPM Atrial Rate : 57 BPM P-R Int : 300 ms QRS Dur : 150 ms QT Int : 516 ms P-R-T Axes : 48 -60 165 degrees QTcB Int : 502 ms Atrial-sensed ventricular-paced rhythm with prolonged AV conduction Abnormal ECG When compared with ECG of 23-Feb-2024 06:28, Electronic ventricular pacemaker has replaced Sinus rhythm Confirmed by Sawyer Harry ([id number]) on 02/24/2024 7:18:10 AM Referred By: REFERRED SELF Confirmed By: Sawyer Harry
[2024-02-24 07:58] VITALS: RESP 18
[2024-02-24] MEDS: POLYETHYLENE (MIRALAX) 17 GM PACK PO PRN (08:58)
[2024-02-24 11:11] VITALS: BP 137/79; TEMP 97.9
--- NOTE | 2024-02-24 13:17 | Discharge Summary ---
Date of Service February 24, 2024 Admission HPI Per Admitting Provider 68-year-old female with past medical history significant for hyperlipidemia, hypothyroidism, prediabetes, history of pneumonia, history of atrioventricular complete block, history of transient atrial fibrillation, history of paroxysmal ventral tachycardia, history of ischemic cardiomyopathy, status post ICD, history of CAD s/p stent, hypertension, venous insufficiency, history of upper GI bleed, history of esophageal dysphagia, CKD stage III, incontinence of urine, osteoporosis, mild dementia, mixed hearing loss bilateral, scalp psoriasis, depression, anxiety, history of alcohol dependence, comes because of on and off chest pain for last few days. Having pressure-like feeling in the chest radiating to back and left arm. Today she took aspirin, Tylenol and tramadol and nitro for pain. She does not know what helped the pain go away. Currently the patient is chest pain-free. Denies any headache. No dizziness. Vision is okay. No runny nose or sore throat. No cough. No nausea. Has some shortness of breath breath. No abdominal pain. Normal bowel and bladder movements. Patient is somewhat hard to hear. Hemodynamics are okay. Admission Exam Per Admitting Provider General- Not in distress Head- atraumatic Eyes- PERRL. ENT- oropharynx clear Neck- supple, no JVD. Lungs- clear to auscultation no wheezing or crackles Heart- regular rate and rhythm; no murmur, no gallop. Abdomen- normal bowel sounds, soft, nontender, no distension Extremities- no pretibial edema, no erythema seen. Neuro- alert, oriented PERRL, EOMI; no facial palsy; no dysarthria; moves extremities. Principal Diagnosis Chest Pain, ACS ruled out Discharge Exam Constitutional WD/WN, vitals as above no acute distress Respiratory normal respiratory effort, lungs clear to auscultation Cardiovascular Rate/Rhythm: regular rate and regular rhythm Vessels: normal peripheral pulses Extremities: no edema right radial cath access site dressing CDI, no evidence of hematoma, CSM checks intact Chest (Breasts) Chest: + pacemaker Skin no rashes, warm and dry Psychiatric A+Ox3, euthymic affect Discharge Data Allergies Allergy/AdvReac Type Severity Reaction Status Date / Time latex Allergy Intermediate HIVES Verified 09/07/23 13:46 adhesive Allergy Mild SKIN Verified 09/07/23 13:46 IRRITATION penicillin V Allergy Unknown Unknown Verified 09/07/23 13:46 aspirin AdvReac Mild STOMACH Verified 09/07/23 13:46 UPSET Consultations 02/22/24 08:00 Consult Cardiology Routine Procedures Performed Operation Date: 02/23/24 09:30 Actual Procedures p Cineradiography w/Routine Exam - Wilson Morales MD, PhD p Cath, Coronaries ONLY (no LV) - Wilson Morales MD, PhD Ordered Studies Laboratory Results WBC 6.74 K/ul (4.8-10.8) 02/24/24 05:56 RBC 3.98 M/uL (4.20-5.40) L 02/24/24 05:56 Hgb 11.7 g/dl (12.0-16.0) L 02/24/24 05:56 Hct 33.7 % (37.0-47.0) L 02/24/24 05:56 MCV 84.7 fL (80.0-100.0) 02/24/24 05:56 MCH 29.4 pg (25.0-34.0) 02/24/24 05:56 MCHC 34.7 g/dL (32.0-36.0) 02/24/24 05:56 RDW Std Deviation 37.3 fL (36.4-46.3) 02/24/24 05:56 RDW Coeff of Chucky 12.2 % (11.5-14.5) 02/24/24 05:56 Plt Count 171 K/uL (130-400) 02/24/24 05:56 MPV 9.8 fL (9.4-12.4) 02/24/24 05:56 Immature Gran % (Auto) 0.3 % 02/24/24 05:56 Neut % (Auto) 70.0 % 02/24/24 05:56 Lymph % (Auto) 17.8 % 02/24/24 05:56 Cottle % (Auto) 7.3 % 02/24/24 05:56 Eos % (Auto) 4.2 % 02/24/24 05:56 Baso % (Auto) 0.4 % 02/24/24 05:56 Neut # (Auto) 4.72 K/uL (1.40-6.50) 02/24/24 05:56 Lymph # (Auto) 1.20 K/uL (1.20-3.40) 02/24/24 05:56 Cottle # (Auto) 0.49 K/uL (0.11-0.59) 02/24/24 05:56 Eos # (Auto) 0.28 K/uL (0.00-0.50) 02/24/24 05:56 Baso # (Auto) 0.03 K/uL (0.00-0.20) 02/24/24 05:56 Immature Gran # (Auto) 0.02 K/uL (0.01-0.20) 02/24/24 05:56 PT 10.5 Seconds (9.0-12.0) 02/22/24 01:56 INR 1.0 (0.9-1.1) 02/22/24 01:56 APTT 23 Seconds (21-31) 02/22/24 01:56 PTT Ratio 0.9 02/22/24 01:56 Sodium 132 mmol/L (136-145) L 02/23/24 05:23 Potassium 3.8 mmol/L (3.5-5.1) 02/23/24 05:23 Chloride 96 mmol/L (98-107) L 02/23/24 05:23 Carbon Dioxide 29 mmol/L (21-32) 02/23/24 05:23 Anion Gap 7 (3-11) 02/23/24 05:23 BUN 22 mg/dl (6-23) 02/23/24 05:23 Creatinine 0.97 mg/dl (0.6-1.2) 02/23/24 05:23 Est Cr Clr Drug Dosing 46.6 ml/min 02/23/24 05:23 Est GFR ( Amer) 68.6 ml/min 02/23/24 05:23 Est GFR (Non-Af Amer) 59.2 ml/min 02/23/24 05:23 BUN/Creatinine Ratio 22.7 (10-20) H 02/23/24 05:23 Glucose 148 mg/dl (70-99(Fasting)) H 02/23/24 05:23 POC Glucose 164 mg/dl (70-99) H 02/24/24 12:06 Estimat Average Glucose 140 mg/dl 02/22/24 07:29 Hemoglobin A1c 6.5 % (4.5-5.6) H 02/22/24 07:29 Calcium 9.3 mg/dl (8.6-10.3) 02/23/24 05:23 Magnesium 1.6 mg/dl (1.7-2.4) L 02/22/24 07:29 Total Bilirubin 0.3 mg/dl (0.2-1.0) 02/22/24 01:56 AST 14 U/L (13-39) 02/22/24 01:56 ALT 9 U/L (7-52) 02/22/24 01:56 Alkaline Phosphatase 73 U/L (34-104) 02/22/24 01:56 Troponin I High Sens 25.8 pg/ml (0-14) H 02/22/24 15:02 B-Natriuretic Peptide 171 pg/ml (0-100) H 02/22/24 07:44 Total Protein 7.1 gm/dl (6.0-8.3) 02/22/24 01:56 Albumin 4.1 gm/dl (3.4-5.0) 02/22/24 01:56 Globulin 3.0 gm/dl (2.5-4.0) 02/22/24 01:56 Albumin/Globulin Ratio 1.4 (0.9-2) 02/22/24 01:56 Lipase 70 U/L (11-82) 02/22/24 01:56 Procalcitonin < 0.02 ng/ml (0-0.5) 02/22/24 01:56 TSH 2.341 uIu/ml (0.300-4.500) 02/22/24 01:56 Impressions Chest X-Ray 02/22/24 01:45 XR chest 1V portable CLINICAL HISTORY: Chest pain, nonspecific TECHNIQUE: Single frontal radiograph of the chest was obtained. Comparison: Comparison is made to chest radiograph 09/04/2023 FINDINGS: Pacemaker defibrillator is seen. The cardiomediastinal silhouette is normal. Lungs are underinflated with interstitial thickening again seen. Superimposed airspace opacity in the left lung and right upper lung may be present. No eviden ce of pleural effusion or pneumothorax. IMPRESSION: Findings compatible with interstitial lung disease. Airspace opacities suggestive of atelectasis, pneumonia, and/or aspiration may be present. ACT 112: Negative or not required by law. Electronically signed by: Tao Sesay M.D. 02/22/2024 7:05 AM Hospital Course (1) Chest pain: 68-year-old female with past medical significant for hyperlipidemia, hypothyroidism, prediabetes, history of pneumonia, history of atrioventricular complete block, history of transient atrial fibrillation, history of paroxysmal ventral tachycardia, history of ischemic cardiomyopathy, status post ICD, history of CAD s/p stent, hypertension, venous insufficiency, history of upper GI bleed, history of esophageal dysphagia, CKD stage III, acute incontinence of urine, osteoporosis, mild dementia, mixed hearing loss bilateral, scalp psoriasis, depression, anxiety, history of alcohol dependence, presented with on and off chest pain for a few days. Having pressure-like feeling in the chest radiating to back and left arm. Chest pain Hx Ischemic cardiomyopathy Status post remote LAD, RCA stent placement She has had previous episodes of chest pain with negative cath (2011) and multiple episodes of requiring PCI (2008, 2015, 2019). EKG with left bundle branch block. HS trop 31 -> 32 -> 32.8 -> 25.8 Cardiology consulted S/p cardiac cath on 02/23/24 - prior stents were patent with moderate in-stent restenosis. Echocardiogram shows EF of 40 to 45%; septal motion consistent with conduction abnormality. Coreg was increased to 6.25 mg twice a day. Continue ASA and statin. Abnormal Chest Xray Finding Findings compatible with interstitial lung disease. Airspace opacities suggestive of atelectasis, pneumonia, and/or aspiration may be present. on room air, denies respiratory symptoms further workup as outpatient Type 2 DM Patient was also found to have HbA1c of 6.5%; discussion was done with the patient regarding dietary measures versus medication. Wanted to continue dietary measures for the time being. She will need to follow-up with her PCP to discuss further treatment options if she decided to use medications History of transient atrial fibrillation On Coreg and aspirin Not on anticoagulation History of atrioventricular complete block History of proximal ventral tachycardia BiV ICD in place Hypertension Chronic, stable, BP controlled On Coreg and hydrochlorothiazide Plan Attending Addendum: Case reviewed with the advanced practitioner. I have personally performed a history and physical examination on the patient. I have reviewed the advanced practitioner's documentation on the date of service referenced in note, and I agree with, and take responsibility for the plan of care. please refer to her notes for full details patient seen and examined, records reviewed by myself as well on exam, patient seen resting in bed, comfortable chest pain, resolved no shortness of breath, palpitations, dizziness no other symptoms feels tired but feels ok overall VS noted and reviewed oriented x3, not in distress, speaks in sentences with no effort nor accessory muscle use normal rate, regular rhythm, no murmurs clear breath sounds bilaterally non distended, soft, nontender no bipedal edema, erythema, warmth no neuro deficits all labs, imaging noted and reviewed ASSESSMENT AND PLAN> CHEST PAIN IN STENT RE-STENOSIS Coreg increased ABNORMAL XRAY FINDING Findings compatible with interstitial lung disease. Airspace opacities suggestive of atelectasis, pneumonia, and/or aspiration may be present. on room air, denies respiratory symptoms further workup as outpatient other diagnoses and plan of care as per advanced practitioner's notes Akash Hawk MD Total Time Total Time Spent Total Time Spent (In Minutes): 40 Discharge Plan Discharge Items Patient Disposition: Home - Self-Care Reason For Visit: CHEST PAIN Discharge Diagnosis: Chest Pain Activity: Resume your previous activity Non-emergency contact: Primary Care Provider Call non-emergency contact if: you have any medication questions and your symptoms worsen Follow-up/Referrals: López Dailey MD [Physician] - 03/24/24 1:00 pm (Schedule a follow up appointment for 2-4 weeks) Luzma Yu MD [Primary Care Provider] - (Date & Time 02/26/2024 11:00 AM Provider Luzma Yu MD [facility] ) Diet: Regular and Carb Consistent or DM2 Addtl Attending Provider Instructions: You were admitted to the hospital due to chest pain. You were evaluated by cardiology during the hospitalization and underwent left heart cath. Your prior stents are patent and working well. Your dose of Coreg has been increased to 6.25 mg twice a day. A new prescription has been sent to your pharmacy. You were found to have type 2 diabetes mellitus with HbA1c of 6.5 percentage. Please continue to maintain carb controlled diet (low carbohydrate food). An appointment with your primary care doctor has been made to discuss future option for medication. Follow up with your service correspondent in 2-4 weeks. It was a pleasure taking care of you. If you need to reach a member of the [facility] hospitalist team and Girma El, please call [phone]. LIEN Mcgregor Pending Studies at Discharge: No Stand-Alone Forms: [facility], Smoking Cessation Medications and DC Order Prescriptions: New carvedilol 6.25 mg Tablet 6.25 mg PO BIDM Qty: 60 0RF Continued nitroglycerin [Nitrostat] 0.4 mg Tablet, Sublingual 0.4 mg Sublingual DIRECTED PRN (Reason: Chest Pain) Rx Instructions: PLACE ONE TABLET UNDER THE TONGUE EVERY 5 MINUTES FOR UP TO 3 DOSES OVER 15 MINUTES IF NEEDED FOR CHEST PAIN solifenacin [Vesicare] 5 mg tablet 5 mg PO QAM atorvastatin 80 mg tablet 80 mg PO HS acetaminophen [Tylenol Extra Strength] 500 mg Tablet 1,000 mg PO AMHS magnesium oxide 400 mg magnesium capsule 400 mg PO QAM aspirin 81 mg Tablet,Delayed Release (Dr/Ec) 81 mg PO QAM tramadol 50 mg tablet 50 mg PO UD PRN (Reason: Pain) hydrochlorothiazide 12.5 mg tablet 12.5 mg PO QAM Discontinued carvedilol 3.125 mg tablet 3.125 mg PO BID Discharge Orders: Discharge Order (Routine); Ordered 02/24/24 Ordered By: Lindsay Deras/Other Patient Handouts: Healthy Meals for Diabetes, Managing Diabetes: The A1C Test, Understanding Type 2 Diabetes Admission Data Admit Date/Time: 02/22/24 04:03 Attending Provider: Akash Hawk Admit Provider: Caleb Murphy Primary Care Provider: Luzma Yu Other Providers: López Dailey Other Interventions: Discharge Summary Assessment (RN) Last Done: 02/24/24 14:02
[2024-02-24 14:04] VITALS: PULSE 66
--- OUTSIDE RECORDS SUMMARY | 2024-02-25 04:47 | External Medical Summary | Summary of Care ---
Author Name Unknown Organization [facility] Address [address] [facility] [place] [address] Phone [phone] Care Team Providers Care Fountain Clerk Name Role Phone Luzma Yu MD Primary Care Provid er Encounter Details Date Type Department Care Team (Late st Contact Info) Description 02/23/2024 Result Scan Unspecified Department <No scans attached> Allergies Active Allergy Reactions Criticality Noted Date Comments Adhesive Tape 01/22/2001 local skin reaction Wound Dressings 05/13/2022 Other reaction(s): Skin irritation Aspirin 04/05/2021 Other reaction(s): Stomach upset Latex Hives 04/05/2021 Penicillins 10/13/2003 hives documented as of this encounter (statuses as of 02/24/2024) Medications Medication Sig Dispensed Refills Start Date [...] can use tramadol. 30 Tablet 12/04/2023 Active Thiamine HCl 100 MG Oral Tablet (vitamin B-1) TAKE 1 TABLET BY MOUTH EVERY DAY IN THE MORNING 90 Tablet 3 02/01/2024 Active documented as of this encounter (statuses as of 02/24/2024) Active Problems Problem Noted Date Diagnosed Date [...] as of this encounter (statuses as of 02/24/2024) Resolved Problems Problem Noted Date Diagnosed Date Resolved Date Unstable angina 05/18/2023 09/22/2023 Abnormal mammogram 10/03/2002 4 Chemical dermatitis 10/30/19 04 documented as of this encounter (statuses as of 02/24/2024) Immunizations Name Administration Dates Next Due COVID-19 [...] Care Team (Late st Contact Info) Description 02/26/2024 11:00 AM EDT Office Visit [place] [address] [place] [id number] Luzma Yu MD [address] [place] [address] 03/10/2024 11:06 AM EDT Hospital Encounter [facility] [address] [facility] [phone] Akira Khan DO [address] [facility] [place] [id number] 03/10/2024 11:06 AM EDT - 03/10/2024 11:56 AM EDT Surgery OR [facility], Operating Room, [facility] - 4th Floor [address] [place] [address] Akira Khan, [address] [place] [address] RIGHT EXTRACAPSULAR CATARACT REMOVAL WITH INTRAOCULAR LENS 03/11/2024 8:15 AM EDT Office Visit Ophthalmology, [place] [address] [place] [address] Akira Khan, [address] [place] [address] 03/17/2024 8:45 AM EDT Office Visit Ophthalmology, [address] [place] [address] Akira Khan, [address] [place] [address] 03/25/2024 3:20 PM EDT Office Visit [facility] [address] [facility], [place] [id number] Luzma Yu MD [address] [place] [address] 03/29/2024 7:40 AM EDT Hospital Encounter OR [facility], Operating Room, [facility] Floor [address] [place] [phone] Akira Khan DO [address] [place] [address] 03/29/2024 7:40 AM EDT - 03/29/2024 8:30 AM EDT Surgery OR [facility], Operating Room, [facility] - 4th Floor [address] [place] [phone] Akira Khan, DO [address] [place] [address] LEFT EXTRACAPSULAR CATARACT REMOVAL WITH INTRAOCULAR LENS 03/30/2024 7:45 AM EDT [facility] [address] [place] [address] Akira Khan, [address] [place] [address] 04/07/2024 2:45 PM ED[facility] [address] [place] [address] Akira Khan, [address] [place] [address] 04/21/2024 3:45 PM EDT Office Visit Ophthalmology, [facility] [address] [place] [address] Akira Khan, [address] [place] [address] Scheduled Procedures Name Priority Associated Diagnoses Date/Ti me EXTRACAPSULAR CATARACT REMOVAL WITH INTRAOCULAR LENS Combined forms of age-related cataract of both eyes 03/10/2024 11:06 AM EDT EXTRACAPSULAR CATARACT REMOVAL WITH INTRAOCULAR LENS Cataract 03/29/2024 7:40 AM EDT Health Maintenance Due Date Last Done Comments Depression Monitoring 1965 Hepatitis C Screening 1971 Cologuard 1998 Colonoscopy 1998 Colorectal Cancer Screening 1998 Fecal Occult Blood Test 1998 Sigmoidoscopy 1998 Zoster Vaccines (1 of 2) 2003 Adult Wellness Visit 2019 COVID-19 Vaccine ( season) 2023 11/06/2020, 09/27/2020 Albumin/Creatinine Ratio 05/20/2023 05/20/2022 Mammogram 11/25/2023 11/24/2022, 06/01/2002 GFR 12/08/2023 06/08/2023, 03/06, 02/23/2023, Additional history exists Influenza Vaccine (FLU shot) (#1) 2024 05/18/2023, 05/09/2022 CKD HGB USE SMARTSET [id number] 06/08/202406/08, 06/08/2023, 03/21/2023, Additional history exists CKD PHOS USE SMARTSET [id number] 06/08/2024 12/0 10/2022, 02/23/2023, 05/09/2022 HbA1c 06/08/2024 06/08/2023, 050 07/2022, 01/14/2022 TSH 06/08/2024 06/08/2023, 05/0 07/2022, 01/14/2022, Additional history exists DXA Scan 07/27/2025 07/27/2023, 07/27/2023 DTaP,Tdap,and Td Vaccines (2 - Td or Tdap) 10/31/2032 10/31/2022 Pneumococcal Vaccine: 65+ Years Completed 05/09/2022 VITAMIN D LEVEL ONCE IN A LIFETIME-USE SMARTSET# [id number] Completed 11/03/2022, 05/09/2022 HPV (Gardasil) Vaccine Aged Out No lo [...] Procedure Name Priority Date/Time Associated Diagnosis Comments CARDIAC CATH SCANNED RESULT 02/23/2024 documented in this encounter Results * CARDIAC CATH SCANNED RESULT (02/23/2024) 02/23/2024 No Physician Data Unknown CARD CATH documented in this encounter Care Teams Fountain Clerk Relationship Specialty Start Date End Date Luzma Yu MD [address] [place] [facility] [place] [address] PCP - General Family Medicine 04/05/21 documented as of this encounter
== END 2024-02-24 14:45 | disposition home or self-care (01) ==
LOC: EDINP 01:36 → ED 01:36 → SUATTDRO 04:03 → 2N 04:41 → 4W 02-23 14:22
PROC: CLB.CCO (2024-02-23 09:30)

== ENCOUNTER 2024-03-06 15:42 | Inpatient (IN) ==
--- OUTSIDE RECORDS SUMMARY | 2024-03-06 15:46 | External Medical Summary | Summary of Care ---
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 incontinence of urine Mild dementia associated with alcoholism, without behavioral disturbance, psychotic disturbance, mood disturbance, or anxiety (HCC) Alcohol use disorder, severe, in early remission (HCC) ICD (implantable cardioverter-defibrillator), biventricular, in situ UGIB (upper gastrointestinal bleed) Pneumonia Mixed hearing loss, bilateral Fracture of L1 vertebra (HCC) Fatigue Esophageal dysphagia Combined forms of age-related cataract of both eyes Current Outpatient Medications Medication Sig Dispense Refill Acetaminophen 500 MG Oral Tablet (Tylenol) Take 1 Tablet by mouth every 6 hours as needed. Take 2 tablets every 8 hours-mild pain/fever Levothyroxine Sodium 50 MCG Oral Tablet (Levoxyl) (at least 30 min prior to breakfast or other meds) 90 Tablet 3 Alendronate Sodium 70 MG Oral Tablet (Fosamax) Take 1 Tablet by mouth once a week. with 8 oz. water30 minutes before first meal of the day. Remain upright for 30 min after taking tablet. 12 Tablet 3 traMADol HCl 50 MG Oral Tablet (Ultram) Take 1 Tablet by mouth daily as needed for Pain, Severe. Take 1000mg tylenol every 6-8 hours first. If no improvement in pain, then can use tramadol. 90 Tablet0 Magnesium Oxide -Mg Supplement 400 (240 Mg) MG Oral Tablet (Mag-Ox) Take 1 Tablet by mouth in the morning. 90 Tablet 3 Atorvastatin Calcium 80 MG Oral Tablet (Lipitor) Take 1 Tablet by mouth in the morning. 90 Tablet 3 Isosorbide Mononitrate ER 120 MG Oral Tablet Extended Release 24 Hour (Imdur) Take 1 Tablet by mouth in the morning. 90 Tablet 3 Thiamine HCl 100 MG Oral Tablet (vitamin B-1) TAKE 1 TABLET BY MOUTH EVERY DAY IN THE MORNING 90 Tablet 3 Nitroglycerin 0.4 MG Sublingual Tablet Sublingual (Nitrostat) Place 1 Tablet under the tongue every5 minutes as needed for Pain, Chest. 90 Tablet 3 Carvedilol 6.25 MG Oral Tablet (Coreg) Take 1 Tablet by mouth 2 times a day with morning and evening meals. 180 Tablet 3 Solifenacin Succinate 10 MG Oral Tablet (VESIcare) Take 1 Tablet by mouth in the morning. 90 Tablet3 Gabapentin 100 MG Oral Capsule (Neurontin) Take 1 Capsule by mouth at bedtime. 90 Capsule 3 metFORMIN HCl ER 500 MG Oral Tablet Extended Release 24 Hour (Glucophage XR) Take 1 Tablet by mouthin the morning. 90 Tablet 3 ECOTRIN LOW STRENGTH 81 MG OR TBEC one by mouth daily (Patient not taking: Reported on 02/26/2024) 00 No current facility-administered medications for this visit. OBJECTIVE: BP 120/66 | Pulse 75 | Temp 36.7 C (98 F) | Resp 16 | Ht 1.575 m (5' 2") | Wt 59.7 kg (131 lb 9.6 oz) | LMP 12/22/2001 | SpO2 97% | BMI 24.07 kg/m | BSA 1.62 m Vitals reviewed and is normotensive / afebrile / and not tachycardic General: No acute distress. Neuro: Alert Pleasant & interactive. Respiratory: Good inspiratory effort, no labored breathing. Mild wheeze bilaterally. CV: RRR no M R G HEENT: Conjunctivae appear clear. No swelling noted face or lips. Skin: No rash visible on exposed skin areas, normal coloration & appears dry. Psych: Normal affect. Fluent speech. Luzma Yu MD [address] [id number] Patient Instructions Patient Instructions - Fall Prevention (This education is for all patients over 65 regardless of symptoms) Remember to take your current medications as prescribed. In order to prevent falls, you are encouraged to: Exercise Utilize assistive/adaptive devices Avoid multifocal lenses when walking Avoid hazards in home Maintain a regular toileting schedule Any questions please contact our office. Preventing Falls in the Home (This education is for all patients over 65 regardless of symptoms) As you get older, falls are more likely. Thats because your reaction time slows. Your muscles and joints may also get stiffer, making them less flexible. Illness, medications, and vision changes can also affect your balance. A fall could leave you unable to live on your own. To make your home safer, follow these tips: Floors Put nonskid pads under area rugs Remove throw rugs Replace worn floor coverings Tack carpets firmly to each step on carpeted stairs. Put nonskid strips on the edges of uncarpeted stairs Keep floors and stairs free of clutter and cords Arrange furniture so there are clear pathways Clean up any spills right away Bathrooms Install grab bars in the tub or shower Apply nonskid strips or put a nonskid rubber mat in the tub or shower Sit on a bath chair to bathe Use bathmats with nonskid backing Lighting Keep a flashlight in each room Put a nightlight along the pathway between the bedroom and the bathroom [employer] Patient Education Copyright 2008 - 2010 [employer] except where otherwise noted Preventing Falls: Exercises to Improve Balance, Flexibility, Strength, and Staying Power (This education is for all patients over 65 regardless of symptoms) Certain types of exercises may help make you less likely to fall. Try the ones below. Or do other exercises that your healthcare provider suggests. Depending on your health, you may need to start slowly. Dont let that stop you. Even small amounts of exercise can help you. Be sure to talk to yourhealthcare provider before starting any exercise program. Improve Balance Many types of exercise can help improve balance. Memo chi and yoga are good examples. Heres another one to try. You can do it anytime and almost anywhere. Stand next to a counter or solid support. Push yourself up onto your tiptoes. Hold for 5 seconds. If you start to lose your balance, hold on to the counter. Rest and repeat 5 times. Work up to holding for 20 to 30 seconds, if you can. Increase Flexibility Being more flexible makes it easier for you to move around safely. Try exercises like the seated hamstring stretch. Sit in a chair and put one foot on a stool. Straighten your leg and reach with both hands down either side of your leg. Reach as far down your leg as you can. Hold for about 20 seconds. Go back to the starting position. Then repeat 5 times. Switch legs. Build Strength Resistance exercises help build strength. You can do them without equipment. Or you can use weights, elastic bands, or special machines. One such exercise is called the biceps curl. You can hold a 1 pound weight or even a can of soup. Do this exercise at least 3 times a week. Strive for everyday. Sit up straight in a chair. Keep your elbow close to your body and your wrist straight. Bend your arm, moving your hand up to your shoulder. Then slowly lower your arm. Repeat 5 times. Switch to the other arm. Build Your Staying Power Aerobic exercises make your heart and lungs stronger so you can keep moving longer. Walking and swimming are two of the best types of exercises you can do. Using a stationary bike is great, too. Find an aerobic exercise that you enjoy. Start slowly and build up. Even 5 minutes is helpful. Aimfor a goal of 30 minutes, at least 3 times a week. You dont have to do 30 minutes in one session. Break it up and walk a little throughout the day. More Helpful Tips Start easy. Slowly work up to doing more. Talk with your healthcare provider about the best exercises for you. Call senior centers or health clubs about exercise programs. If needed, have a family member watch you walk every so often to check your stability. Exercise with a friend. Choose an activity you both enjoy. Try exercises that you can do anytime, anywhere. Here are two examples. Have someone with you when you first try these: Practice walking by placing one foot right in front of the other. Stand up and sit down 10 times. Repeat this throughout the day. [employer] Patient Education Copyright 2008 [employer] except where otherwise noted. Preventing Falls: Moving Safely Using a Cane or Walker (This education is for all patients over 65 regardless of symptoms) Keep the cane away from your feet so you dont trip. A walking aid, such as a cane or walker, can help you stay more independent and avoid falls. Remember to keep your walking aid within easy reach when youre in a chair or in bed. And learn how to use it safely so you dont injure yourself. Using a Cane If you have a stronger side, hold the cane on that side. Get your balance. Move the cane and your weaker leg forward. Support your weight on both the cane and your weaker side. Step with your stronger leg. Start again from step 1. If youre using a folding walker, be sure you know how to lock it open. Check that its locked open before each use. Using a Walker Roll the walker (or lift it, if youre using one without wheels) forward about 12 inches. Step forward with your weaker leg first. Use the walker to help keep your balance. Bring your other foot forward to the center of the walker. Start again from step 1. Helpful Tips Check with your healthcare provider about the right walking aid to use. Ask about a walker with a seat attached. Check the tips of your cane or walker to make sure they have nonskid covers. Move slowly from room to room. Dont cosby. Sit down to get dressed. Use a felicitas pack or backpack to keep your hands free. Get help for jobs that mean climbing, even on a stepstool. [employer] Patient Education Copyright 2008 - 2010 [employer] except where otherwise noted. Urinary Incontinence Plan of Care Documentation: (This education is for all patients over 65 regardless of symptoms) Current medications reconciled. Patient encouraged to: Practice kegal exercises Provide education materials Use the restroom every 2 hours throughout the day Limit caffeine, alcohol, spicy foods and acidic foods Keep a bladder diary Limit fluid intake 3-4 hours before bed Lose weight Prevent constipation Take fluid pills at a time when you can get to the bathroom quickly Control sugar better if diabetic Limit fluid intake to 60 oz. per day Wear support stockings (TEDs)if you have edema Katyosvaldo MerazNILDA 02/26/2024 Kegel Exercises Kegel exercises dont require special clothing or equipment. Theyre easy to learn and simple to do. And if you do them right, no one can tell youre doing them, so they can be done almost anywhere. Your doctor, nurse, or physical therapist can answer any questions you have and help you get started. A Weak Pelvic Floor The pelvic floor muscles may weaken due to aging, and vaginal childbirth, injury, surgery, chronic cough, or lack of exercise. If the pelvic floor is weak, your bladder and other pelvic organs may sag out of place. The urethra may also open too easily and allow urine to leak out. Kegel exercises can help you strengthen your pelvic floor muscles so they can better support the pelvic organs and control urine flow. How Kegel Exercises Are Done Try each of the Kegel exercises described below. When youre doing them, try not to move your leg, buttock, or stomach muscles. While youre urinating, try to stop the flow of urine. Start and stop it as often as you can. Contract as if you were stopping your urine stream, but do it when youre not urinating. Tighten your rectum as if trying not to pass gas. Contract your anus, but dont move your buttocks. Helpful Hints Do your Kegels as often as you can. The more you do them, the faster youll feel the results. Pick an activity you do often as a reminder. For instance, do your Kegels every time you sit down. Tighten your pelvic floor before you sneeze, get up from a chair, cough, laugh, or lift. This protects your pelvic floor from injury and can help prevent urine leakage. Try to hold each Kegel for a slow count to five. You probably wont be able to hold them for thatlong at first, but keep practicing. It will get easier as your pelvic floor gets stronger. Eventually, special weights that you place in your vagina may be recommended to help make your Kegels even more effective. [employer] Patient Education Copyright 2009 - Bria Deras except where otherwise noted. Here are some helpful tips for your urinary incontinence: (This education is for all patients over 65 regardless of symptoms) Practice Kegel exercises Use the restroom every 2 hours throughout the day Limit caffeine, alcohol, spicy foods, and acidic foods Keep a bladder diary Limit fluid intake 3-4 hours before bed Lose weight Prevent constipation Take fluid pills at a time when can get to the bathroom quickly Control sugar better if diabetic Limit fluid intake to 60 oz. per day Any questions, please feel free to contact our office. * Katy Meraz LPN - 02/26/2024 11:12 AM EDT Fall Risk Plan of Care Documentation: - Current medications reconciled Patient encouraged to: - Exercise - Provide education materials for Core strengthening - Utilize assistive/adaptive devices - Provide education materials - Avoid multifocal lenses when walking - Avoid hazards in home - Provide education materials - Maintain a regular toileting schedule Katy Meraz LPN 02/26/2024 documented in this encounter Nursing Notes * Katy Meraz LPN - 02/26/2024 11:12 AM EDT The patient has been properly identified by confirmation of name and date of . Chief Complaint Patient presents with Hospital Follow-Up Her feet are bothering her a lot, is having an ache in bilateral feet documented in this encounter Plan of Treatment Upcoming Encounters Date Type Department Care Team (Late st Contact Info) Description 03/10/2024 11:06 AM EDT Hospital Encounter OR [facility], Operating Room, [facility] - 4th Floor [address] [place] [phone] Akira Khan, DO [address] [facility] [place] [id number] 03/10/2024 11:06 AM EDT - 03/10/2024 11:56 AM EDT Surgery OR [facility], Operating Room, [facility] - 4th Floor [address] [place] [address] Akira Khan, [address] [place] [id number] RIGHT EXTRACAPSULAR CATARACT REMOVAL WITH INTRAOCULAR LENS 03/11/2024 8:15 AM EDT Office Visit Ophthalmology, [place] [address] [place] [address] Akira Khan, [address] [place] [id number] 03/17/2024 8:45 AM EDT Office Visit Ophthalmology, [address] [place] [address] Akira Khan, [address] [place] [id number] 03/25/2024 3:20 PM EDT Office Visit [facility] [address] [facility], [place] [phone] Luzma Yu MD [address] [place] [address] 03/29/2024 7:40 AM EDT Hospital Encounter OR [facility], Operating Room, [facility] - 4th Floor [address] [place] [phone] Akira Khan DO [address] [place] [id number] 03/29/2024 7:40 AM EDT - 03/29/2024 8:30 AM EDT Surgery OR [facility], Operating Room, [facility] - 4th Floor [address] [place] [phone] Akira Khan, DO [address] [place] [id number] LEFT EXTRACAPSULAR CATARACT REMOVAL WITH INTRAOCULAR LENS 03/30/2024 7:45 AM EDT [facility] [address] [place] [address] Akira Khan, DO [address] [place] [id number] 04/07/2024 2:45 PM ED[facility] [address] [facility] [place] [address] Akira Khan, [address] [place] [id number] 04/21/2024 3:45 PM EDT Office Visit Ophthalmology, [facility] [address] [facility] [place] [address] Akira Khan, [address] [place] [id number] Scheduled Procedures Name Priority Associated Diagnoses Date/Ti [...] 2024 05/18/2023, 05/09/2022 CKD HGB USE SMARTSET 62013 06/08/202406/08, 06/08/2023, 03/21/2023, Additional history exists CKD PHOS USE SMARTSET 66219 06/08/2024 12/0 10/2022, 02/23/2023, 05/09/2022 HbA1c 06/08/2024 06/08/2023, 05/0 07/2022, 01/14/2022 TSH 06/08/2024 06/08/2023, 05/0 07/2022, 01/14/2022, Additional history exists DXA Scan 07/27/2025 07/27/2023, 07/27/2023 DTap/Tdap Vaccines (2 - Td or Tdap) 10/31/2032 10/31/2022 Pneumococcal Vaccine: 65+ Years Completed 05/09/2022 VITAMIN D LEVEL ONCE IN A LIFETIME-USE SMARTSET# [id number] Completed 11/03/2022, 05/09/2022 HPV (Gardasil) Vaccine Aged [...] Other and combined forms of senile cataract Hospital discharge follow-up- Primary Other follow-up examination Risk and functional assessment Screening for unspecified condition H/O heart artery stent Postsurgical percutaneous transluminal coronary angioplasty status Atypical chest pain Other chest pain Acquired hypothyroidism Unspecified hypothyroidism Age-related osteoporosis without current pathological fracture Senile osteoporosis Chronic low back pain without sciatica, unspecified back pain laterality Dyslipidemia, goal to be determined Other and unspecified hyperlipidemia Ischemic cardiomyopathy Other specified forms of chronic ischemic heart disease Alcohol use disorder, severe, in early remission (HCC) FEM STRESS INCONTINENCE Female stress incontinence Peripheral polyneuropathy Unspecified hereditary and idiopathic peripheral neuropathy Prediabetes Other abnormal glucose Atrioventricular block, complete (HCC) Atrioventricular block, complete Cardiac disease Heart disease, unspecified GENERALIZED ANXIETY DIS Generalized anxiety disorder Combined forms of age-related cataract of both eyes Other and combined forms of senile cataract Cataract Unspecified cataract documented in this encounter Care Teams Analyst Sales Relationship Specialty Start Date End Date Luzma Yu MD [address] [place] [address] PCP - General Family Medicine 04/05/21 documented as of this encounter
--- OUTSIDE RECORDS SUMMARY | 2024-03-06 15:46 | External Medical Summary | Summary of Care ---
Author Name Unknown Organization [facility] Address [address] [facility] [place] [address] Phone [phone] Care Team Providers Care Industrial Manufacturing Technician Name Role Phone Luzma Yu MD Primary Care Provid er Encounter Details Date Type Department Care Team (Late st Contact Info) Description 03/03/2024 Population Health External Data Unspecified Department Allergies Active Allergy Reactions Criticality Noted Date Comments Adhesive Tape 01/22/2001 local skin reaction Wound Dressings 05/13/2022 Other reaction(s): Skin irritation Aspirin 04/05/2021 Other reaction(s): Stomach upset Latex Hives 04/05/2021 Penicillins 10/13/2003 hives documented as of this encounter (statuses as of 03/03/2024) Medications Medication Sig Dispensed Refills Start Date End Date Status ECOTRIN LOW STRENGTH 81 MG OR TBECIndications:Atri oventricular block, complete (HCC),Cardiac disease,Generalized anxiety disorder one by mouth daily 0 0 10/19/2003 Active Additional Information Patient not taking.Reported on 02/26/2024 Acetaminophen 500 MG Oral Tablet (Tylenol) Take 1 Tablet by mouth every 6 hours as needed. Take 2 tablets every 8 hours-mild pain/fever Active metFORMIN HCl 500 MG Oral Tablet (Glucophage)Indicati ons:Prediabetes Take 1 Tablet by mouth in the morning and 1 Tablet before bedtime. 180 Tablet 3 10/31/2022 Active Alendronate Sodium 70 MG Oral Tablet (Fosamax)Indications :Age-related osteoporosis without current pathological fracture Take 1 Tablet by mouth once a week. with 8 oz. water 30 minutes before first meal of the day. Remain upright for 30 min after taking tablet. 12 Tablet 02/26/2024 Active traMADol HCl 50 MG Oral [...] by mouth in the morning. 90 Tablet 02/26/2024 Active Atorvastatin Calcium 80 MG Oral Tablet (Lipitor)Indications :Dyslipidemia, goal to be determined,Ischemic cardiomyopathy Take 1 Tablet by mouth in the morning. 90 Tablet 02/26/2024 Active Isosorbide Mononitrate ER 120 MG Oral Tablet Extended Release 24 Hour (Imdur)Indications:I schemic cardiomyopathy Take 1 Tablet by mouth in the morning. 90 Tablet 02/26/2024 Active Thiamine HCl 100 MG Oral Tablet (vitamin B-1)Indications:Alco hol use disorder, severe, in early remission (HCC) TAKE 1 TABLET BY MOUTH EVERY DAY IN THE MORNING 90 Tablet 02/26/2024 Active Nitroglycerin 0.4 MG Sublingual Tablet Sublingual (Nitrostat)Indicatio ns:H/O heart artery stent,Atypical chest pain Place 1 Tablet under the tongue every 5 minutes as needed for Pain, Chest. 90 Tablet 02/26/2024 Active Carvedilol 6.25 MG Oral Tablet (Coreg)Indications:H /O heart artery stent,Atypical chest pain,Ischemic cardiomyopathy Take 1 Tablet by mouth 2 times a day with morning and evening meals. 180 Tablet 02/26/2024 Active Solifenacin Succinate 10 MG Oral Tablet (VESIcare)Indication s:Female stress incontinence Take 1 Tablet by mouth in the morning. 90 Tablet 02/26/2024 Active Gabapentin 100 MG Oral Capsule (Neurontin)Indicatio ns:Peripheral polyneuropathy Take 1 Capsule by mouth at bedtime. 90 Capsule 02/26/2024 Active metFORMIN HCl ER 500 MG Oral Tablet Extended Release 24 Hour (Glucophage XR)Indications:Predi abetes Take 1 Tablet by mouth in the morning. 90 Tablet 3 02/26/2024 Active Levothyroxine Sodium 50 MCG Oral Tablet (Levoxyl)Indications :Acquired hypothyroidism Take 1 Tablet by mouth daily first thing in the morning. (at least 30 min prior to breakfast or other meds) 90 Tablet 3 02/26/2024 Active documented as of this encounter (statuses as of 03/03/2024) Active Problems Problem Noted Date Diagnosed Date [...] as of this encounter (statuses as of 03/03/2024) Resolved Problems Problem Noted Date Diagnosed Date Resolved Date Unstable angina 05/18/2023 09/22/2023 Abnormal mammogram 10/03/2002 4 Chemical dermatitis 10/30/19 04 documented as of this encounter (statuses as of 03/03/2024) Immunizations Name Administration Dates Next Due COVID-19 [...] Team (Late st Contact Info) Description 03/10/2024 11:51 AM EDT Hospital Encounter OR [facility], Operating Room, [facility] [address] [address] Akira Khan, [address] [address] 03/10/2024 11:51 AM EDT - 03/10/2024 12:41 PM EDT Surgery OR [facility], Operating Room, [facility] Floor [address] [address] Akira Khan, [address] [address] RIGHT EXTRACAPSULAR CATARACT REMOVAL WITH INTRAOCULAR LENS 03/11/2024 8:15 AM EDT Office Visit Ophthalmology, [place] [address] [address] Akira Khan DO [address] [address] 03/17/2024 8:45 AM EDT [address] [address] Akira Khan DO [address] [address] 03/25/2024 3:20 PM EDT Office Visit [facility] [address] [phone] Luzma Yu MD [address] [address] 03/29/2024 7:40 AM EDT Hospital Encounter OR [facility], Operating Room, [facility] - 4th Floor [address] [place] [address] Akira Khan, [address] [address] 03/29/2024 7:40 AM EDT - 03/29/2024 8:30 AM EDT Surgery OR [facility], Operating Room, [facility] - 4th Floor [address] [place] [address] Akira Khan, [address] [address] LEFT EXTRACAPSULAR CATARACT REMOVAL WITH INTRAOCULAR LENS 03/30/2024 7:45 AM EDT Office Visit [place] [address] [address] Akira Khan, [address] [address] 04/07/2024 2:45 PM EDT [address] [address] Akira Khan DO [address] [address] 04/21/2024 3:45 PM EDT Office [address] [address] Akira Khan DO [address] [address] Scheduled Procedures Name Priority Associated Diagnoses Date/Ti me EXTRACAPSULAR CATARACT REMOVAL WITH INTRAOCULAR LENS Combined forms of age-related cataract of both eyes 03/10/2024 11:51 AM EDT EXTRACAPSULAR CATARACT REMOVAL WITH INTRAOCULAR LENS Cataract 03/29/2024 7:40 AM EDT Health Maintenance Due Date Last Done Comments Depression Monitoring 1965 Hepatitis C Screening 1971 Cologuard 1998 Colonoscopy 1998 Colorectal Cancer Screening 1998 Fecal Occult Blood Test 1998 Sigmoidoscopy 1998 Zoster Vaccines (1 of 2) 2003 Adult Wellness Visit 2019 COVID-19 Vaccine (3 - season) 2023 11/06/2020, 09/27/2020 Albumin/Creatinine Ratio 05/20/2023 05/20/2022 Mammogram 11/25/2023 11/24/2022, 06/01/2002 GFR 12/08/2023 06/08/2023, 03/06, 02/23/2023, Additional history exists Influenza Vaccine (FLU shot) (#1) 2024 05/18/2023, 05/09/2022 CKD HGB USE SMARTSET 63104 06/08/202406/08, 06/08/2023, 03/21/2023, Additional history exists CKD PHOS USE SMARTSET 94277 06/08/2024 12/0 10/2022, 02/23/2023, 05/09/2022 HbA1c 06/08/2024 06/08/2023, 05/0 07/2022, 01/14/2022 TSH 06/08/2024 06/08/2023, 05/0 07/2022, 01/14/2022, Additional history exists DXA Scan 07/27/2025 07/27/2023, 07/27/2023 DTap/Tdap Vaccines (2 - Td or Tdap) 10/31/2032 10/31/2022 Pneumococcal Vaccine: 65+ Years Completed 05/09/2022 VITAMIN D LEVEL ONCE IN A LIFETIME-USE SMARTSET# [id number] Completed 11/03/2022, 05/09/2022 HPV (Gardasil) Vaccine Aged [...] filedocumented as of this encounter Care Teams Industrial Manufacturing Technician Relationship Specialty Start Date End Date Luzma Yu MD [address] [address] PCP - General Family Medicine 04/05/21 documented as of this encounter
--- OUTSIDE RECORDS SUMMARY | 2024-03-06 15:46 | External Medical Summary | Summary of Care ---
Author Name Unknown Organization [facility] Address [address] [place] [address] Phone [phone] Care Team Providers Care Cargo And Ramp Services Manager Name Role Phone Luzma Yu MD Primary Care Provid er Reason for Visit * Reason Onset Date Comments Advice 03/01/2024 Encounter Details Date Type Department Care Team (Late st Contact Info) Description 03/01/2024 Telephone [facility] [address] [place] [address] Luzma Yu MD [address] [place] [address] Advice Allergies Active Allergy Reactions Criticality Noted [...] and 1 Tablet before bedtime. 180 Tablet 10/31/2022 Active Alendronate Sodium 70 MG Oral [...] encounter Miscellaneous Notes * Telephone Encounter - Diana William LPN - 03/01/2024 7:03 PM EDT Spoke with pt. And reviewed her medications. Pt stated understanding. Pt will call us back if she gets confused again. But she states she thinks she has it for now. * Telephone Encounter - Heike Alexander OSA - 03/01/2024 3:59 PM EDT Patient had about 9 medications delivered to her in the mail. Before she takes medications please call her at [phone]. documented in this encounter Plan of Treatment Upcoming Encounters Date Type Department Care Team (Late st Contact Info) Description 03/10/2024 11:06 AM EDT Hospital Encounter OR [facility], Operating Room, [facility] - 4th Floor [address] [place] [address] Akria Khan, [address] [address] 03/10/2024 11:06 AM EDT - 03/10/2024 11:56 AM EDT Surgery OR [facility], Operating Room, [facility] - 4th Floor [address] [place] [address] Akira Khan, [address] [address] RIGHT EXTRACAPSULAR CATARACT REMOVAL WITH INTRAOCULAR LENS 03/11/2024 8:15 AM EDT Office Visit Ophthalmology, [place] [address] [address] Akira Khan DO [address] [address] 03/17/2024 8:45 AM EDT Office [address]mology, [address] [address] Akira Khan DO [address] [address] 03/25/2024 3:20 PM EDT Office Visit [facility] [address] [facility], [place] [address] Luzma Yu MD [address] [facility], [place] [address] 03/29/2024 7:40 AM EDT Hospital Encounter OR [facility], Operating Room, [facility] - 4th Floor [address] [place] [address] Akira Khan DO [address] [address] 03/29/2024 7:40 AM EDT - 03/29/2024 8:30 AM EDT Surgery OR [facility], Operating Room, [facility] - 4th Floor [address] [place] [address] Akira Khan DO [address] [address] LEFT EXTRACAPSULAR CATARACT REMOVAL WITH INTRAOCULAR LENS 03/30/2024 7:45 AM EDT [facility] [address] [address] Akira Khan DO [address] [address] 04/07/2024 2:45 PM EDT Office Visit Ophthalmology, [facility] [address] [facility] [address] Akira Khan, DO [address] [address] 04/21/2024 3:45 PM EDT Office Visit Ophthalmology, [facility] [address] [facility] [address] Akira Khan, [address] [address] Scheduled Procedures Name Priority Associated Diagnoses Date/Ti [...] 2024 05/18/2023, 05/09/2022 CKD HGB USE SMARTSET 06516 06/08/202406/08, 06/08/2023, 03/21/2023, Additional history exists CKD PHOS USE SMARTSET 30287 06/08/2024 12/0 10/2022, 02/23/2023, 05/09/2022 HbA1c 06/08/2024 06/08/2023, 05/0 07/2022, 01/14/2022 TSH 06/08/2024 06/08/2023, 05/0 07/2022, 01/14/2022, Additional history exists DXA Scan 07/27/2025 07/27/2023, 07/27/2023 DTap/Tdap Vaccines (2 - Td or Tdap) 10/31/2032 10/31/2022 Pneumococcal Vaccine: 65+ Years Completed 05/09/2022 VITAMIN D LEVEL ONCE IN A LIFETIME-USE SMARTSET# [id number] Completed 11/03/2022, 05/09/2022 HPV (Gardasil) Vaccine Aged [...] filedocumented as of this encounter Care Teams Cargo And Ramp Services Manager Relationship Specialty Start Date End Date Luzma Yu MD [address] [place] [address] PCP - General Family Medicine 04/05/21 documented as of this encounter
--- OUTSIDE RECORDS SUMMARY | 2024-03-06 15:47 | External Medical Summary | Summary of Care ---
Author Name Unknown Organization [facility] Address [address] [place] [address] Phone [phone] Care Team Providers Care Pricing Director Name Role Phone Luzma Yu MD Primary Care Provid er Reason for Referral * Medication Prior Authorization - Pending Review Specialty Diagnoses / Procedures Referred By Contac t Referred To Contact Diagnoses Alcohol use disorder, severe, in early remission (HCC) Luzma Yu MD [address] [place] [address] Referral ID Status Reason Start Date Expiration Date V isits Requested Visits Authorized [id number] Pending Review [id number] Reason for Visit * Reason Onset Date Comments Hospital Follow-Up Her feet are bothering her a lot, is having an ache in bilateral feet Hospital Follow-Up 02/26/2024 Encounter Details Date Type Department Care Team (Late st Contact Info) Description 02/26/2024 11:00 AM EDT Office Visit [facility] [address] [phone] Luzma Yu MD [address] [...] as of this encounter (statuses as of 02/26/2024) Medications Medication Sig Dispensed Refills Start Date End Date Status ECOTRIN LOW STRENGTH 81 MG OR TBECIndications:Atr ioventricular block, 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 Take 2 tablets every 8 hours-mild pain/fever Active Levothyroxine Sodium 50 MCG Oral Tablet (Levoxyl)Indication s:Acquired hypothyroidism (at least 30 min prior to breakfast or other meds) 90 Tablet 3 02/26/2024 Active Alendronate Sodium 70 MG Oral Tablet [...] or other meds) 90 Tablet 1 05/18/2023 4 Discontinu ed(Refill) Carvedilol 3.125 MG Oral Tablet [...] after taking tablet. 5 Tablet 11 05/18/2023 4 Discontinu ed(Refill) hydroCHLOROthiazide 12.5 MG Oral Tablet [...] 90 Tablet 3 02/01/2024 4 Discontinu ed(Refill) documented as of this encounter (statuses as of 02/26/2024) Active Problems Problem Noted Date Diagnosed Date [...] as of this encounter (statuses as of 02/26/2024) Resolved Problems Problem Noted Date Diagnosed Date Resolved Date Unstable angina 05/18/2023 09/22/2023 Abnormal mammogram 10/03/2002 4 Chemical dermatitis 04/26/20 04 documented as of this encounter (statuses as of 02/26/2024) Immunizations Name Administration Dates Next Due COVID-19 [...] encounter Patient Instructions * Patient Instructions* Katy MerazISAIAHN - 02/26/2024 11:12 AM EDT Patient Instructions [...] 10 times. Repeat this throughout the day. [employer]ia Patient Education Copyright 2008 [employer] except where otherwise noted. Preventing Falls: Moving [...] that mean climbing, even on a stepstool. D[employer]zAltius Education Patient Education Copyright 2008 - 2010 [employer]ulia except where otherwise noted. Urinary Incontinence Plan [...] stockings (TEDs)if you have edema Katy Meraz LPN 02/26/2024 Kegel Exercises Kegel exercises dont require [...] - Here for JOE - Admitted at [facility] Admission date: 02/21 Discharge date: 02/23 Presented with: atypical chest pain Diagnosis: ACS rule out Diagnostics: CBC w mild anemia normocytic Na [address] wnl Glc 160s A1C 6.5 Mg 1.6 [...] mother be taken care of in a senior living, that her own health is too fragile at this time to take something like that on. I also spoke with her on the phone (who could not be here w her today due to needing to take care of mother in law) that she needs to be taking all her meds as prescribed. Other chronic conditions ICM / pacemaker Follows with [facility] Reviewed last visit - no med [...] her John picks up her meds from [facility] Says they would be glad to use mail order pharmacy Says she recently took in her 91 yo mother bc she doesn't want to put her in a senior living Says this is affecting her nerves lately. [...] Normal affect. Fluent speech. Luzma Yu MD [address] [address] Patient Instructions Patient Instructions - Fall Prevention [...] 10 times. Repeat this throughout the day. Taulia Patient Education Copyright 2008 Taulia except where otherwise noted. Preventing Falls: Moving [...] that mean climbing, even on a stepstool. [employer]ia Patient Education Copyright 2008 Taulia except where otherwise noted. Urinary Incontinence Plan [...] stockings (TEDs)if you have edema Katy Meraz LPN 02/26/2024 Kegel Exercises Kegel exercises dont require [...] 03/10/2024 11:06 AM EDT Hospital Encounter OR [facility], Operating Room, [facility] - 4th Floor [address] [place] [phone] Akira Khan, [address] [address] 03/10/2024 11:06 AM EDT - 03/10/2024 11:56 AM EDT Surgery OR [facility], Operating Room, [facility] - 4th Floor [address] [address] Akira Khan, DO [address] [address] RIGHT EXTRACAPSULAR CATARACT REMOVAL WITH INTRAOCULAR LENS 03/11/2024 8:15 AM EDT Office Visit Ophthalmology, [place] [address] [place] [address] Akira Khan, DO [address] [address] 03/17/2024 8:45 AM EDT Office Visit Ophthalmology, [facility] [address] [facility] [place] [address] Akira Khan, [address] [address] 03/25/2024 3:20 PM EDT Office Visit [facility] [address] [facility], [place] [address] Luzma Yu MD [address] [facility] [place] [address] 03/29/2024 7:40 AM EDT Hospital Encounter OR [facility], Operating Room, [facility] - 4th Floor [address] [place] [address] Akira Khan, [address] [address] 03/29/2024 7:40 AM EDT - 03/29/2024 8:30 AM EDT Surgery OR [facility], Operating Room, [facility] - 4th Floor [address] [place] [place] [address] Akira Khan, [address] [address] LEFT EXTRACAPSULAR CATARACT REMOVAL WITH INTRAOCULAR LENS 03/30/2024 7:45 AM EDT [facility] [address] [address] Akira Khan, [address] [address] 04/07/2024 2:45 PM EDT Office Visit Ophthalmology, [facility] [address] [place] [address] Akira Khan, [address] [address] 04/21/2024 3:45 PM EDT Office Visit Ophthalmology, [facility] [address] [place] [address] Akira Khan DO [address] [address] Scheduled Procedures Name Priority Associated Diagnoses Date/Ti [...] 2024 05/18/2023, 05/09/2022 CKD HGB USE SMARTSET 31633 06/08/202406/08, 06/08/2023, 03/21/2023, Additional history exists CKD PHOS USE SMARTSET 35195 06/08/2024 12/0 10/2022, 02/23/2023, 05/09/2022 HbA1c 06/08/2024 06/08/2023, 05/0 07/2022, 01/14/2022 TSH 06/08/2024 06/08/2023, 05/0 07/2022, 01/14/2022, Additional history exists DXA Scan 07/27/2025 07/27/2023, 07/27/2023 DTaP,Tdap,and Td Vaccines (2 - Td or Tdap) 10/31/2032 10/31/2022 Pneumococcal Vaccine: 65+ Years Completed 05/09/2022 VITAMIN D LEVEL ONCE IN A LIFETIME-USE SMARTSET# [id number] Completed 11/03/2022, 05/09/2022 HPV (Gardasil) Vaccine Aged [...] cataract documented in this encounter Care Teams Pricing Director Relationship Specialty Start Date End Date Luzma Yu MD [address] [facility] [place] [address] PCP - General Family Medicine 04/05/21 documented as of this encounter
--- OUTSIDE RECORDS SUMMARY | 2024-03-06 15:47 | External Medical Summary | Summary of Care ---
Author Name Unknown Organization [facility] Address [address] [place] [address] Phone [phone] Care Team Providers Care Director Of Agronomy Name Role Phone Luzma Yu MD Primary Care Provid er Encounter Details Date Type Department Care Team (Late st Contact Info) Description 02/26/2024 Telephone [facility] [address] [place] [address] Luzma Yu MD [address] [place] [address] Allergies Active Allergy Reactions Criticality Noted Date [...] Active metFORMIN HCl 500 MG Oral Tablet (Glucophage)Indicat ions:Prediabetes Take 1 Tablet by mouth in the [...] 50 MCG Oral Tablet (Levoxyl)Indication s:Acquired hypothyroidism Take 1 Tablet by mouth daily first thing in the morning. (at least 30 min prior to breakfast or other meds) 90 Tablet 3 02/26/2024 Active Levothyroxine Sodium 50 MCG Oral Tablet (Levoxyl)Indication s:Acquired hypothyroidism (at least 30 min prior to breakfast or other meds) 90 Tablet 3 02/26/2024 Discontinu ed(Refill) documented as of this encounter [...] Telephone Encounter - Luzma Yu MD - 02/26/2024 4:42 PM EDT signed * Telephone Encounter - Jovana Cardenas CPhT - 02/26/2024 3:04 PM EDT Pharmacy is calling because pt's prescription for Levothyroxine 50mcg was sent with unclear directions stating "(at least 30 min prior to breakfast or other meds)". Please clarify the directions for this medication and send a new prescription to [facility] Jovana Cardenas Cpht III documented in this encounter Plan of Treatment Upcoming Encounters Date Type Department Care Team (Late st Contact Info) Description 03/10/2024 11:06 AM EDT Hospital Encounter OR [facility], Operating Room, [facility] - 4th Floor [address] [address] Akira Khan, DO [address] [address] 03/10/2024 11:06 AM EDT - 03/10/2024 11:56 AM EDT Surgery OR [facility], Operating Room, [facility] - 4th Floor [address] [address] Akira Khan, DO [address] [address] RIGHT EXTRACAPSULAR CATARACT REMOVAL WITH INTRAOCULAR LENS 03/11/2024 8:15 AM EDT Office Visit Ophthalmology, [place] [address] [place] [address] Akira Khan, [address] [address] 03/17/2024 8:45 AM EDT Office Visit Ophthalmology, [facility] [address] [facility] [place] [address] Akira Khan, [address] [address] 03/25/2024 3:20 PM EDT Office Visit [facility] [address] [place] [facility] [address] Luzma Yu MD [address] [place] [address] 03/29/2024 7:40 AM EDT Hospital Encounter OR [facility], Operating Room, [facility] - 4th Floor [address] [place] [address] Akira Khan, [address] [address] 03/29/2024 7:40 AM EDT - 03/29/2024 8:30 AM EDT Surgery OR [facility], Operating Room, [facility] - 4th Floor [address] [place] [address] Akira Khan, [address] [address] LEFT EXTRACAPSULAR CATARACT REMOVAL WITH INTRAOCULAR LENS 03/30/2024 7:45 AM EDT [facility] [address] [address] Akira Khan, [address] [address] 04/07/2024 2:45 PM EDT Office Visit Ophthalmology, [facility] [address] [place] [address] Akira Khan, [address] [address] 04/21/2024 3:45 PM EDT Office Visit [facility], [facility] [address] [place] [address] Akira Khan DO [address] [address] Scheduled Procedures Name Priority Associated Diagnoses Date/Ti [...] 2024 05/18/2023, 05/09/2022 CKD HGB USE SMARTSET 18145 06/08/202406/08, 06/08/2023, 03/21/2023, Additional history exists CKD PHOS USE SMARTSET 23660 06/08/2024 12/0 10/2022, 02/23/2023, 05/09/2022 HbA1c 06/08/2024 06/08/2023, 05/0 07/2022, 01/14/2022 TSH 06/08/2024 06/08/2023, 05/0 07/2022, 01/14/2022, Additional history exists DXA Scan 07/27/2025 07/27/2023, 07/27/2023 DTaP,Tdap,and Td Vaccines (2 - Td or Tdap) 10/31/2032 10/31/2022 Pneumococcal Vaccine: 65+ Years Completed 05/09/2022 VITAMIN D LEVEL ONCE IN A LIFETIME-USE SMARTSET# [id number] Completed 11/03/2022, 05/09/2022 HPV (Gardasil) Vaccine Aged [...] Other and combined forms of senile cataract Acquired hypothyroidism Unspecified hypothyroidism Combined forms of age-related cataract of both eyes Other and combined forms of senile cataract Cataract Unspecified cataract documented in this encounter Care Teams Director Of Agronomy Relationship Specialty Start Date End Date Luzma Yu MD [address] [facility] [place] [address] PCP - General Family Medicine 04/05/21 documented as of this encounter
--- OUTSIDE RECORDS SUMMARY | 2024-03-06 15:47 | External Medical Summary | Summary of Care ---
Author Name Unknown Organization [facility] Address [address] [place] [address] Phone [phone] Care Team Providers Care Grain Combiner Name Role Phone Luzma Yu MD Primary Care Provid er Reason for Visit * Reason Onset Date Comments FYI 02/26/2024 Encounter Details Date Type Department Care Team (Late st Contact Info) Description 02/26/2024 Telephone [facility] [address] [place] [address] Luzma Yu MD [address] [place] [address] FYI Allergies Active Allergy Reactions Criticality Noted Date [...] before bedtime. 180 Tablet 3 10/31/2022 Active Levothyroxine Sodium 50 [...] the morning. 90 Tablet 3 02/26/2024 Active documented as [...] encounter Miscellaneous Notes * Telephone Encounter - Margareth Barnes PHARM Tech - 02/26/2024 1:47 PM EDT Chance from [facility] calling to advise Vitamin B-1, 100mg tablets are excluded from coverage under Medicare part D Margareth Dover Bar Welder III [facility] 02/26/2024,1:48 PM documented in this encounter Plan of Treatment Upcoming Encounters Date Type Department Care Team (Late st Contact Info) Description 03/10/2024 11:06 AM EDT Hospital Encounter OR [facility], Operating Room, [facility] - 4th Floor [address] [place] [address] Akira Khan DO [address] [id number] 03/10/2024 11:06 AM EDT - 03/10/2024 11:56 AM EDT Surgery OR [facility], Operating Room, [facility] - 4th Floor [address] [place] [address] Akira Khan DO [address] [address] RIGHT EXTRACAPSULAR CATARACT REMOVAL WITH INTRAOCULAR LENS 03/11/2024 8:15 AM EDT [facility] [place] [facility] [address] [address] Akira Khan, [address] [address] 03/17/2024 8:45 AM EDT Office Visit Ophthalmology, [facility] [address] [facility] [place] [address] Akira Khan DO [address] [id number] 03/25/2024 3:20 PM EDT Office Visit [facility] [address] [facility], [place] [address] Luzma Yu MD [address] [facility] [place] [address] 03/29/2024 7:40 AM EDT Hospital Encounter OR [facility], Operating Room, [facility] - 4th [facility] [address] [facility] [address] Akira Khan DO [address] [address] 03/29/2024 7:40 AM EDT - 03/29/2024 8:30 AM EDT Surgery OR [facility], Operating Room, [facility] - 4th Floor [address] [place] [address] Akira Khan DO [address] [id number] LEFT EXTRACAPSULAR CATARACT REMOVAL WITH INTRAOCULAR LENS 03/30/2024 7:45 AM EDT Office Visit [place] [address] [address] Akira Khan DO [address] [address] 04/07/2024 2:45 PM EDT Office Visit Ophthalmology, [facility] [address] [facility] [place] [address] Akira Khan DO [address] [address] 04/21/2024 3:45 PM EDT Office Visit Ophthalmology, [facility] [address] [place] [address] Akira Khan DO [address] [place] [address] Scheduled Procedures Name Priority Associated Diagnoses Date/Ti [...] 2024 05/18/2023, 05/09/2022 CKD HGB USE SMARTSET 26324 06/08/202406/08, 06/08/2023, 03/21/2023, Additional history exists CKD PHOS USE SMARTSET 76899 06/08/2024 12/0 10/2022, 02/23/2023, 05/09/2022 HbA1c 06/08/2024 06/08/2023, 0507/2022, 01/14/2022 TSH 06/08/2024 06/08/2023, 05/0 07/2022, 01/14/2022, Additional history exists DXA Scan 07/27/2025 07/27/2023, 07/27/2023 DTaP,Tdap,and Td Vaccines (2 - Td or Tdap) 10/31/2032 10/31/2022 Pneumococcal Vaccine: 65+ Years Completed 05/09/2022 VITAMIN D LEVEL ONCE IN A LIFETIME-USE SMARTSET# [id number] Completed 11/03/2022, 05/09/2022 HPV (Gardasil) Vaccine Aged [...] filedocumented as of this encounter Care Teams Grain Combiner Relationship Specialty Start Date End Date Luzma Yu MD [address] [place] [facility] [place] [id number] PCP - General Family Medicine 04/05/21 documented as of this encounter
--- NOTE | 2024-03-06 16:02 | Emergency Department Note ---
Impression & Plan Chest pain, Non-ST elevation HI (NSTEMI) ED Provider Note HISTORY OF PRESENT ILLNESS: Patient is a 68-year-old female presenting with chest pain. Patient reports that around 1 PM today, she developed acute onset of substernal chest pain. Reports pain radiates down both of her arms. She took 3 nitro pills and a Tylenol with little relief in her symptoms and called 911. She had a heart catheterization done 2 weeks ago but no stents were placed. She has a lot of stressors at home, including her uncle just dying and her mother who is 97 moving in with her. She denies any DVT or PE history. She still rates her pain a 5 out of 10. Denies any abdominal pain or back pain. Reports nausea and had an episode of vomiting. She reports some associated shortness of breath. ROS: as above PHYSICAL EXAM: Constitutional: Patient appears in mild distress. HENT: Head: Normocephalic and atraumatic. Eyes: EOMI, PERRL Mouth/Throat: Mucous membranes moist. Neck: Trachea midline. Neck supple. Cardiovascular: Tachycardic with paced rhythm. No murmurs, rubs or gallops. Intact distal pulses. Pulmonary/Chest: No respiratory distress. Breath sounds clear and equal bilaterally. No wheezes or rales. N Abdominal: Abdomen soft, no tenderness, rebound or guarding. Musculoskeletal: No edema, tenderness or deformity noted. Skin: Warm and dry. No rash, erythema, pallor or cyanosis Psychiatric: Appropriate mood and affect for situation. Neurological: Alert and keenly responsive. CN II-XII grossly intact, moving all extremities equally and fully. MDM: - Vitals signs showed hypertension and tachycardia - History obtained via patient. History as above. - Chronic conditions affecting care: ischemic cardiomyopathy; CAD; DM-2; paroxysmal Afib; HLD; LBBB - Differential diagnoses include, but are not limited to: Acute coronary syndrome; pulmonary embolism; dissection; tension pneumothorax; esophageal rupture; pneumonia - Order placed for continuous cardiac monitoring. At this time, monitor showed rate of 92 bpm with paced rhythm, per my interpretation. - External medical records reviewed. Cardiac catheterization note dated 02/23/2024 was reviewed. Patient had no stents placed at that time. Medication management was recommended. Prior stents were noted to be patent but with moderate in-stent restenosis. - EKG interpreted by myself showed ventricular paced rhythm. Rate 107 bpm - Laboratory workup interpreted by myself showed normal WBC; normal PT/INR; stable electrolytes; hyperglycemia (glucose 166); elevated troponin (40.4); normal lipase - CXR negative for pneumonia, per my interpretation - Patient given 50 mcg IV fentanyl. - On reassessment, patient complaining of continued pain. Given 4 mg IV morphine. - CTA chest negative for PE or aortic dissection. Noted to have extensive groundglass opacities throughout the lungs with multifocal cystic change that has progressed since September 2017 CT scan. Radiology reports that these could be infectious process or pulmonary edema with interstitial lung disease. - Repeat troponin risen to 211.8 - Discussion was had with case managers about patient's case and need for admission - Hospitalist, Dr. Matos, consulted for admission - [facility]. I have personally spent 64 minutes of critical care time in the direct management of this patient. This includes bedside care, interpretation of diagnostic studies, and testing, discussion with consultants, patient, and family members, and other required patient management activities. This 64 minutes is in excess of all separately billable procedures. ASSESSMENT AND PLAN: Diagnosis: Chest pain; NSTEMI Plan: Admit Past Med/Surg History Problem List (Updated 03/06/24 @ 19:13 by Antonella Hicks MD) Non-ST elevation HI (NSTEMI) (Acute) Chest pain (Acute) Elevated troponin (Acute) LBBB (left bundle branch block) Chest pain (Acute) Generalized weakness (Acute) Dyslipidemia Parainfluenza (Acute) Pneumonia (Acute) RAD (reactive airway disease) (Acute) UGIB (upper gastrointestinal bleed) SOB (shortness of breath) HBP (high blood pressure) GERD (gastroesophageal reflux disease) Osteoporosis AF (paroxysmal atrial fibrillation) Depression Diabetes mellitus, type 2 Fracture of L1 vertebra (Acute) Fall (Acute) Mixed hearing loss, bilateral Coronary artery disease Fatigue ICD (implantable cardioverter-defibrillator), biventricular, in situ Encounter for pre-operative examination Encounter for pre-operative examination Esophageal dysphagia Left knee pain (Acute) Left knee pain (Acute) Unstable angina Syncope (Acute) DVT prophylaxis Acute cystitis Ischemic cardiomyopathy Hypothyroidism PT DENIES. Medical History S/P right coronary artery (RCA) stent placement (2015) History of placement of stent in LAD coronary artery (2008) History of placement of stent in LAD coronary artery (2019) Hypomagnesemia Acute hypokalemia Non-ST elevation HI (NSTEMI) Pneumonia Acid reflux disease with ulcer Alcohol abuse, unspecified Anxiety state, unspecified Anxiety disorder Atrial fibrillation Coronary artery disease Cardiac arrest Cardiomyopathy Congestive heart failure, unspecified Congestive cardiomyopathy Cor athrscl-uns vessel Depressive disorder, not elsewhere classified Dysphagia, oropharyngeal phase Fecal incontinence Goiter Celia's thyroiditis Other and unspecified hyperlipidemia Ocular hypertension, unspecified eye Lumbago Lumbar compression fracture Old myocardial infarct Postmenopausal atrophic vaginitis Subclinical hypothyroidism Type 2 diabetes mellitus Unknown whether patient has any health problems Urinary tract infection FREQUENT Cancer SKIN CANCER Hypertension Anxiety GERD (gastroesophageal reflux disease) HLD (hyperlipidemia) CAD (coronary artery disease) Surgical History History of appendectomy History of cardiac cath 1 STENT (2015 @ [facility]) History of esophagogastroduodenoscopy (EGD) History of colonoscopy History of tonsillectomy S/P placement of cardiac pacemaker ~15-20 YEARS AGO[address] FOLLOWS WITH DR RUBI AND LAST CHECKED 4 MONTHS AGO History of cholecystectomy Family History Mother Family history of diabetes mellitus Blind Hearing loss Hypertension Allergies Asthma Sister Family history of diabetes mellitus Coronary heart disease Father No problems noted. Denies family history of No family history of adverse response to anesthesia No family history of bleeding disorder Heart disease Cancer Stroke Social History Smoking Status: Never smoker Second Hand Exposure: No; Do You Dip or Chew Tobacco: No; Hx Alcohol Use: No Hx Substance Use: No Preferred Language: Estonian Communication Ability: Effective Criminal Lawyer Required: No Beliefs That Will Affect Care: None marital status: Current Living Situation: Spouse How many Children do You have: 1 Feels Safe at Home: Yes Assistive Devices: None Allergies Allergies Allergy/AdvReac Type Severity Reaction Status Date / Time latex Allergy Intermediate HIVES Verified 03/06/24 17:00 adhesive Allergy Mild SKIN Verified 03/06/24 17:00 IRRITATION penicillin V Allergy Unknown CAN'T Verified 03/06/24 17:00 REMEMBER aspirin AdvReac Mild STOMACH Verified 03/06/24 17:00 UPSET Home Meds Home Medications Medication Instructions Recorded Confirmed nitroglycerin 0.4 mg sublingual 0.4 mg sublingual DIRECTED PRN 06/16/18 03/06/24 tablet (Nitrostat) Chest Pain atorvastatin 80 mg tablet 80 mg PO HS 03/12/21 03/06/24 solifenacin 5 mg tablet (Vesicare) 5 mg PO QAM 03/12/21 03/06/24 acetaminophen 500 mg tablet 1,000 mg PO AMHS 02/15/23 03/06/24 (Tylenol Extra Strength) aspirin 81 mg tablet,delayed 81 mg PO QAM 04/28/23 03/06/24 release magnesium oxide 400 mg PO QAM 04/28/23 03/06/24 hydrochlorothiazide 12.5 mg tablet 12.5 mg PO QAM 02/22/24 03/06/24 tramadol 50 mg tablet 50 mg PO UD PRN Pain 02/22/24 03/06/24 alendronate 70 mg tablet mg PO 03/06/24 gabapentin 100 mg capsule mg 03/06/24 isosorbide mononitrate 120 mg mg PO 03/06/24 tablet,extended release 24 hr metformin 500 mg tablet,extended mg PO 03/06/24 release 24 hr Previous Rx's Medication Instructions Recorded carvedilol 6.25 mg tablet 6.25 mg PO BIDM #60 tabs 02/23/24 Results & Data (ED) Vital Signs Vital Signs - 24 hr 03/06/24 15:43 03/06/24 16:32 03/06/24 16:32 Temperature 36.1 C L Temperature Source Temporal Artery Scan Pulse Rate 113 H 95 H Pulse Rate [Apical] Pulse Rhythm [Apical] Pulse Strength [Apical] Respiratory Rate 16 18 Respiratory Effort / Characteristics Respiratory Depth Respiratory Pattern Blood Pressure 200/104 H Blood Pressure [Right Arm] Blood Pressure Mean 136 Blood Pressure Mean [Right Arm] Blood Pressure Position [Right Arm] Pulse Oximetry 96 95 95 Oxygen Delivery Method Room Air Room Air Room Air Sepsis Recent Fever Within 48 Hours No Sepsis New/Unexplained Change in Mental Status N/A Sepsis Action Taken by Nursing No Action Required 03/06/24 16:35 Temperature Temperature Source Pulse Rate Pulse Rate [Apical] 92 H Pulse Rhythm [Apical] Regular Pulse Strength [Apical] Normal Respiratory Rate 16 Respiratory Effort / Characteristics Non-Labored Spontaneous Respiratory Depth Normal Respiratory Pattern Regular Blood Pressure Blood Pressure [Right Arm] 172/97 H Blood Pressure Mean Blood Pressure Mean [Right Arm] 122 Blood Pressure Position [Right Arm] Lying Pulse Oximetry 95 Oxygen Delivery Method Room Air Sepsis Recent Fever Within 48 Hours Sepsis New/Unexplained Change in Mental Status Sepsis Action Taken by Nursing Laboratory Data 03/06/24 16:00 03/06/24 16:00 Lab Results 03/06/24 03/06/24 Range/Units 16:00 17:48 WBC 7.97 (4.8-10.8) K/ul RBC 4.53 (4.20-5.40) M/uL Hgb 13.4 (12.0-16.0) g/dl Hct 39.6 (37.0-47.0) % MCV 87.4 (80.0-100.0) fL MCH 29.6 (25.0-34.0) pg MCHC 33.8 (32.0-36.0) g/dL RDW Std Deviation 40.8 (36.4-46.3) fL RDW Coeff of Chucky 13.0 (11.5-14.5) % Plt Count 186 (130-400) K/uL MPV 10.0 (9.4-12.4) fL Immature Gran % (Auto) 0.5 % Neut % (Auto) 70.6 % Lymph % (Auto) 20.1 % [place] % (Auto) 6.4 % Eos % (Auto) 2.0 % Baso % (Auto) 0.4 % Neut # (Auto) 5.63 (1.40-6.50) K/uL Lymph # (Auto) 1.60 (1.20-3.40) K/uL [place] # (Auto) 0.51 (0.11-0.59) K/uL Eos # (Auto) 0.16 (0.00-0.50) K/uL Baso # (Auto) 0.03 (0.00-0.20) K/uL Immature Gran # (Auto) 0.04 (0.01-0.20) K/uL PT 10.5 (9.0-12.0) Seconds INR 1.0 (0.9-1.1) Sodium 138 (136-145) mmol/L Potassium 3.8 (3.5-5.1) mmol/L Chloride 105 (98-107) mmol/L Carbon Dioxide 23 (21-32) mmol/L Anion Gap 10 (3-11) BUN 19 (6-23) mg/dl Creatinine 0.99 (0.6-1.2) mg/dl Est Cr Clr Drug Dosing Not Reportable Est GFR ( Amer) 66.9 ml/min Est GFR (Non-Af Amer) 57.7 ml/min BUN/Creatinine Ratio 19.2 (10-20) Glucose 166 H (70-99(Fasting)) mg/dl Calcium 10.0 (8.6-10.3) mg/dl Total Bilirubin 0.7 (0.2-1.0) mg/dl AST 16 (13-39) U/L ALT 10 (7-52) U/L Alkaline Phosphatase 69 (34-104) U/L Troponin I High Sens 40.4 H 211.8 H* D (0-14) pg/ml Total Protein 8.1 (6.0-8.3) gm/dl Albumin 4.7 (3.4-5.0) gm/dl Globulin 3.4 (2.5-4.0) gm/dl Albumin/Globulin Ratio 1.4 (0.9-2) Lipase 35 (11-82) U/L Administered Medications Discontinued Medications Fentanyl Citrate (Fentanyl Citrate Pf 100 Mcg/2 Ml Vial) 50 mcg IV NOW STA Stop: 03/06/24 15:50 Last Admin: 03/06/24 16:06 Dose: 50 mcg Documented By: GEORGINA Ioversol (Optiray 320 125ml) 117 ml IV ONCE ONE Stop: 03/06/24 17:22 Last Admin: 03/06/24 17:22 Dose: 117 ml Documented By: JEIMY Morphine Sulfate (Morphine Sulfate 4 Mg/Ml 1 Ml Carp\Vial) 4 mg IV NOW STA Stop: 03/06/24 17:40 Last Admin: 03/06/24 17:56 Dose: 4 mg Documented By: GEORGINA Imaging Data Radiologist's Impression: Chest CTA 03/06/24 15:49 CT ANGIOGRAPHY OF THE CHEST DISSECTION PROTOCOL CLINICAL HISTORY: Chest pain. Evaluate for dissection. COMPARISON STUDY: Chest CT September 29, 2017 and chest radiograph performed earlier today. TECHNIQUE: Before and following the IV administration of Optiray, helical axial images of the chest were obtained. Maximal intensity projections and sagittal and coronal reformats were viewed on an independent 3D workstation. IV contrast was administered without complication. Automated exposure control was utilized for the study. A dose lowering technique was utilized adhering to the principles of ALARA. CT DOSE: 1046.64 mGy.cm FINDINGS: A left subclavian biventricular pacer/AICD is in place. The caliber of the thoracic aorta is normal. There is no intramural hematoma or thoracic aortic dissection. The heart is mildly enlarged. There is moderate coronary artery calcification. No pulmonary emboli are identified. Several mildly enlarged mediastinal lymph nodes are present. Subcarinal lymph node measures 1.9 x 1.2 cm. There is no pneumothorax or pleural effusion. An 8 mm low-attenuation right lower lobe nodule is unchanged since CT of September 29, 2017. This is benign given stability. No suspicious pulmonary nodules are present. Extensive groundglass opacities throughout the lungs with multifocal cystic change and reticulation have mildly progressed when compared to CT of September 29, 2017. There is no honeycombing. Old right-sided rib fractures are incidentally noted. IMPRESSION: 1. No thoracic aortic dissection. 2. No pulmonary emboli. 3. Extensive groundglass opacities throughout the lungs with multifocal cystic change and reticulation which have mildly progressed since CT of September 29, 2017. The findings could reflect an infectious process or pulmonary edema superimposed upon interstitial lung disease. Progression of interstitial lung disease could appear similar. 4. A few mildly enlarged mediastinal lymph nodes. These may be reactive. ACT 112: Negative or not required by law. Electronically signed by: Tejinder Archer M.D. 03/06/2024 5:37 PM Chest X-Ray 03/06/24 15:49 XR chest 1V portable CLINICAL HISTORY: Chest pain, nonspecific COMPARISON STUDY: Chest radiograph February 22, 2024. Chest CT September 29, 2017. FINDINGS: A left subclavian biventricular pacer/ICD is unchanged in position. Mild cardiomegaly is unchanged. Mediastinal contours are stable. There is no pneumothorax or pleural effusion. Interstitial thickening within the lungs is similar to prior exam. No superimposed consolidation. IMPRESSION: 1. No acute cardiopulmonary findings. 2. No significant change in interstitial thickening consistent with interstitial lung disease. No superimposed consolidation. ACT 112: Negative or not required by law. Electronically signed by: Tejinder Archer M.D. 03/06/2024 4:28 PM Discharge Plan Visit Data Chief Complaint: Chest Pain Stated Complaint: CHEST PAIN ED Provider: Antonella Hicks Discharge Problem: Chest pain, Non-ST elevation HI (NSTEMI) Forms Stand Alone Forms: [facility] [employer] Prescriptions Prescriptions: No Action nitroglycerin [Nitrostat] 0.4 mg Tablet, Sublingual 0.4 mg Sublingual DIRECTED PRN (Reason: Chest Pain) Rx Instructions: PLACE ONE TABLET UNDER THE TONGUE EVERY 5 MINUTES FOR UP TO 3 DOSES OVER 15 MINUTES IF NEEDED FOR CHEST PAIN solifenacin [Vesicare] 5 mg tablet 5 mg PO QAM atorvastatin 80 mg tablet 80 mg PO HS acetaminophen [Tylenol Extra Strength] 500 mg Tablet 1,000 mg PO AMHS magnesium oxide 400 mg magnesium capsule 400 mg PO QAM aspirin 81 mg Tablet,Delayed Release (Dr/Ec) 81 mg PO QAM tramadol 50 mg tablet 50 mg PO UD PRN (Reason: Pain) hydrochlorothiazide 12.5 mg tablet 12.5 mg PO QAM carvedilol 6.25 mg Tablet 6.25 mg PO BIDM Qty: 60 0RF alendronate 70 mg tablet PO isosorbide mononitrate 120 mg tablet extended release 24 hr PO gabapentin 100 mg capsule metformin 500 mg tablet extended release 24 hr PO Referrals Referrals: Luzma Yu MD [Primary Care Provider] -
[2024-03-06] MEDS: fentaNYL citrate PF 100 MCG/2 ML VIAL IV STA (16:06)
[2024-03-06 16:27] LABS: Basophils # (auto) 0.03 K/uL (0.00-0.20); Basophils % (auto) 0.4 %; Eosinophils # (auto) 0.16 K/uL (0.00-0.50); Hematocrit (blood only) 39.6 % (37.0-47.0); Hemoglobin 13.4 g/dl (12.0-16.0); Immature Granulocytes # (auto) 0.04 K/uL (0.01-0.20); Immature Granulocytes % (auto) 0.5 %; Lymphocytes % (auto) 20.1 %; Mean Corpuscular Hemoglobin 29.6 pg (25.0-34.0); Mean Corpuscular Hgb Conc 33.8 g/dL (32.0-36.0); Mean Corpuscular Volume 87.4 fL (80.0-100.0); Monocytes # (auto) 0.51 K/uL (0.11-0.59); Monocytes % (auto) 6.4 %; Neutrophils # (auto) 5.63 K/uL (1.40-6.50); Neutrophils % (auto) 70.6 %; Platelet Count 186 K/uL (130-400); RDW Standard Deviation 40.8 fL (36.4-46.3); Red Blood Count 4.53 M/uL (4.20-5.40); White Blood Count 7.97 K/ul (4.8-10.8)
--- NOTE | 2024-03-06 16:29 | XRay Report ---
XR chest 1V portable CLINICAL HISTORY: Chest pain, nonspecific COMPARISON STUDY: Chest radiograph February 22, 2024. Chest CT September 29, 2017. FINDINGS: A left subclavian biventricular pacer/ICD is unchanged in position. Mild cardiomegaly is un changed. Mediastinal contours are stable. There is no pneumothorax or pleural effusion. Interstitial thickening within the lungs is similar to prior exam. No superimposed consolidation. IMPRESSION: 1. No acute cardiopulmonary findings. 2. No significant change in interstitial thickening consistent with interstitial lung disease. No sup erimposed consolidation. ACT 112: Negative or not required by law. Electronically signed by: Tejinder Archer M.D. 03/06/2024 4:28 PM
[2024-03-06 16:43] LABS: Alanine Aminotransferase 10 U/L (7-52); Albumin Globulin Ratio 1.4 (0.9-2); Albumin Level 4.7 gm/dl (3.4-5.0); Alkaline Phosphatase 69 U/L (34-104); Anion Gap 10 (3-11); Aspartate Aminotransferase 16 U/L (13-39); BUN Creatinine Ratio 19.2 (10-20); Bilirubin,Total 0.7 mg/dl (0.2-1.0); Blood Urea Nitrogen 19 mg/dl (6-23); Carbon Dioxide 23 mmol/L (21-32); Chloride 105 mmol/L (98-107); Est GFR (African American) 66.9 ml/min; Est GFR (Non-African American) 57.7 ml/min; Globulin 3.4 gm/dl (2.5-4.0); Glucose 166 mg/dl (70-99(Fasting)); Lipase 35 U/L (11-82); Potassium 3.8 mmol/L (3.5-5.1); Sodium 138 mmol/L (136-145); Total Protein 8.1 gm/dl (6.0-8.3)
[2024-03-06 16:49] LABS: Troponin I High Sensitivity 40.4 pg/ml (0-14)
[2024-03-06 16:51] LABS: Prothrombin Time 10.5 Seconds (9.0-12.0)
[2024-03-06] MEDS: OPTIRAY 320 125ml IV ONE (17:22)
--- NOTE | 2024-03-06 17:39 | CT Scan Report ---
CT ANGIOGRAPHY OF THE CHEST DISSECTION PROTOCOL CLINICAL HISTORY: Chest pain. Evaluate for dissection. COMPARISON STUDY: Chest CT September 29, 2017 and chest radiograph performed earlier today. TECHNIQUE: Before and following the IV administration of Optiray, helical axial images of the chest w ere obtained. Maximal intensity projections and sagittal and coronal reformats were viewed on an [facility] 3D workstation. IV contrast was administered without complication. Automated exposure cont rol was utilized for the study. A dose lowering technique was utilized adhering to the principles of ALARA. CT DOSE: 1046.64 mGy.cm FINDINGS: A left subclavian biventricular pacer/AICD is in place. The caliber of the thoracic aorta is normal. There is no intramural hematoma or thoracic aortic dissection. The heart is mildly enlarge d. There is moderate coronary artery calcification. No pulmonary emboli are identified. Several mildl y enlarged mediastinal lymph nodes are present. Subcarinal lymph node measures 1.9 x 1.2 cm. There is no pneumothorax or pleural effusion. An 8 mm low-attenuation right lower lobe nodule is unchanged si nce CT of September 29, 2017. This is benign given stability. No suspicious pulmonary nodules are present . Extensive groundglass opacities throughout the lungs with multifocal cystic change and reticulation have mildly progressed when compared to CT of September 29, 2017. There is no honeycombing. Old right-si ded rib fractures are incidentally noted. IMPRESSION: 1. No thoracic aortic dissection. 2. No pulmonary emboli. 3. Extensive groundglass opacities throughout the lungs with multifocal cystic change and reticulatio n which have mildly progressed since CT of September 29, 2017. The findings could reflect an infectious p rocess or pulmonary edema superimposed upon interstitial lung disease. Progression of interstitial anastasia ng disease could appear similar. 4. A few mildly enlarged mediastinal lymph nodes. These may be reactive. ACT 112: Negative or not required by law. Electronically signed by: Tejinder Archer M.D. 03/06/2024 5:37 PM
[2024-03-06] MEDS: MoRPHine SULFATE 4 MG/ML 1 ML CARP\\VIAL IV STA (17:56)
--- NOTE | 2024-03-06 18:24 | History & Physical Report ---
Date of Service March 06, 2024 Assessment & Plan (1) Chest pain: (2) Elevated troponin: Plan Codi Painter is a 68y/o F with PMHx of dyslipidemia, CAD s/p LAD and RCA stent placement, hypothyroidism, DM type II, complete AV block s/p biventricular ICD pacemaker placement, transient atrial fibrillation, HTN, paroxysmal ventricular tachycardia, ischemic cardiomyopathy, rheumatic heart disease, CKD stage III, mild dementia, alcohol use disorder, bilateral hearing loss, os teoporosis, urge incontinence and other problems listed below who presented to the ED for evaluation secondary to chest pain. Patient previously admitted to [facility] on 02/22/24 with chest pain. She underwent cardiac catheterization on 02/22. No new stents were placed at that time. Her prior stents were patent but with moderate in-stent restenosis. Echo on 02/21 showed the following: mild to moderately reduced LV systolic fx, LVEF=40-45%, septal motion consistent with conduction abnormality, moderate global kinesis of the LV, moderate concentric LV hypertrophy and elevated RV systolic pressure of 30-40mmHg. Her Coreg was increased to 6.25mg BID. Also noted to have a Hgb A1c of 6.5% at that time. She was discharged home on 02/23. Chest Pain Elevated Troponin, Rule-Out ACS Initial troponin 40.4 on presentation. Repeat troponin 211.8 at 17:48. Presenting EKG showed prolonged AV conduction w/ occasional PVCs. Repeat EKG w/ 1st degree AV block, LAD, LBBB. Cardiology consulted, Dr. Vega made aware of patient via [employer]. Heparin drip started. Continue to trend troponin. Continuous cardiac monitoring. Echo pending. Daily EKG x 2. EKG w/ chest pain PRN. PRN Nitrostat, nitroglycerin patch. PRN IV morphine. NPO at midnight - may need cardiac cath. Uncontrolled Hypertension: BP 200/104 on arrival, SBP in the 160s when patient seen in ED. Continue home meds. PRN IV 5mg labetalol Q4H for SBP>165 w/ hold parameters. Interstitial Lung Disease: Chest CTA remarkable for extensive groundglass opacities throughout the lungs with multifocal cystic change and reticulation. Appears to be a new diagnosis. Patient reports chronic cough producing whitish/cloudy sputum and SOB with activity. Not currently following w/ pulmonology as outpatient. Pulmonology consult pending. DM Type II: Hold home metformin, SSI regimen while inpatient. Hgb A1c 6.5% from previous admission. BSG checks ACHS. Dyslipidemia, CAD History of Cardiac Stent Placement: Continue ASA, atorvastatin. CKD Stage III: Cr stable at 0.99, baseline Cr ~1. Avoid nephrotoxic meds when able and monitor renal fx closely. DVT Prophylaxis: SCDs/TEDs for now in setting of IV heparin drip. Code Status: FULL CODE PCP: Luzma Yu MD Disposition: Admit to PCU/Telemetry Patient seen in collaboration with Dr. Matos. Please see addendum. I spent a total of 65 minutes coordinating, documenting, and providing care for this patient excluding time spent in the performance of separately billed services. This included personally reviewing all current laboratories and imaging studies, medical reconciliation, outpatient chart review and discussion with specialists. This chart was completed in part utilizing Speech Voice Recognition Software. Grammatical errors, random word insertions, pronoun errors, and incomplete sentences are an occasional consequence of this system due to software limitations, ambient noise, and hardware issues. Any formal questions or concerns about the content, text, or information contained within the body of this dictation should be directly addressed to the provider for clarification. History of Present Illness Chief Complaint: Chest Pain Primary Care Provider: Luzma Yu MD Codi Painter is a 68y/o F with PMHx of dyslipidemia, CAD s/p LAD and RCA stent placement, hypothyroidism, DM type II, complete AV block s/p biventricular ICD pacemaker placement, transient atrial fibrillation, HTN, paroxysmal ventricular tachycardia, ischemic cardiomyopathy, rheumatic heart disease, CKD stage III, mild dementia, alcohol use disorder, bilateral hearing loss, ost eoporosis, urge incontinence and other problems listed below who presented to the ED for evaluation secondary to chest pain. History obtained from patient and associated chart review. Patient previously admitted to [facility] on 02/22/24 with chest pain. She underwent cardiac catheterization on 02/22. No new stents were placed at that time. Her prior stents were patent but with moderate in-stent restenosis. Echo on 02/21 showed the following: mild to moderately reduced LV systolic fx, LVEF=40-45%, septal motion consistent with conduction abnormality, moderate global kinesis of the LV, moderate concentric LV hypertrophy and elevated RV systolic pressure of 30-40mmHg. Her Coreg was increased to 6.25mg BID. Also noted to have a Hgb A1c of 6.5% at that time. She was discharged home on 02/23. Chest pain started at rest this morning around 9AM. Describes it as more of a central chest pressure sensation. Pain radiates down both of her arms. 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 Reports some improvement in her pain after administration of IV fentanyl and morphine in the ED. No fevers, recent sick contacts. Cough at baseline. Did have an episode of vomiting on her way to the ED. Smokes 1ppd. Infrequent alcohol use. No recreational drug use. Allergies Allergy/AdvReac Type Severity Reaction Status Date / Time latex Allergy Intermediate HIVES Verified 03/06/24 17:00 adhesive Allergy Mild SKIN Verified 03/06/24 17:00 IRRITATION penicillin V Allergy Unknown CAN'T Verified 03/06/24 17:00 REMEMBER aspirin AdvReac Mild STOMACH Verified 03/06/24 17:00 UPSET Home Medications Medication Instructions Recorded Confirmed Type nitroglycerin 0.4 mg sublingual 0.4 mg sublingual DIRECTED PRN 06/16/18 03/06/24 History tablet (Nitrostat) Chest Pain atorvastatin 80 mg tablet 80 mg PO HS 03/12/21 03/06/24 History solifenacin 5 mg tablet (Vesicare) 10 mg PO QAM 03/12/21 03/06/24 History acetaminophen 500 mg tablet 1,000 mg PO AMHS 02/15/23 03/06/24 History (Tylenol Extra Strength) aspirin 81 mg tablet,delayed 81 mg PO QAM 04/28/23 03/06/24 History release magnesium oxide 400 mg PO QAM 04/28/23 03/06/24 History hydrochlorothiazide 12.5 mg tablet 12.5 mg PO QAM 02/22/24 03/06/24 History tramadol 50 mg tablet 50 mg PO UD PRN Pain 02/22/24 03/06/24 History carvedilol 6.25 mg tablet 6.25 mg PO BIDM #60 tabs 02/23/24 03/06/24 Rx alendronate 70 mg tablet 70 mg PO .QWEEKLY 03/06/24 03/06/24 History gabapentin 100 mg capsule 100 mg PO HS 03/06/24 03/06/24 History isosorbide mononitrate 120 mg 120 mg PO DAILY 03/06/24 03/06/24 History tablet,extended release 24 hr metformin 500 mg tablet,extended 500 mg PO DAILY 03/06/24 03/06/24 History release 24 hr Past Med/Surg History Problem List (Updated 03/06/24 @ 19:48 by Geraldine Saldaña PA-C) Non-ST elevation [place] (NSTEMI) (Acute) Chest pain (Acute) Elevated troponin (Acute) LBBB (left bundle branch block) Chest pain (Acute) Generalized weakness (Acute) Dyslipidemia Parainfluenza (Acute) Pneumonia (Acute) RAD (reactive airway disease) (Acute) UGIB (upper gastrointestinal bleed) SOB (shortness of breath) HBP (high blood pressure) GERD (gastroesophageal reflux disease) Osteoporosis AF (paroxysmal atrial fibrillation) Depression Diabetes mellitus, type 2 Fracture of L1 vertebra (Acute) Fall (Acute) Mixed hearing loss, bilateral Coronary artery disease Fatigue ICD (implantable cardioverter-defibrillator), biventricular, in situ Encounter for pre-operative examination Encounter for pre-operative examination Esophageal dysphagia Left knee pain (Acute) Left knee pain (Acute) Unstable angina Syncope (Acute) DVT prophylaxis Acute cystitis Ischemic cardiomyopathy Hypothyroidism PT DENIES. Medical History S/P right coronary artery (RCA) stent placement (2015) History of placement of stent in LAD coronary artery (2008) History of placement of stent in LAD coronary artery (2019) Hypomagnesemia Acute hypokalemia Non-ST elevation [place] (NSTEMI) Pneumonia Acid reflux disease with ulcer Alcohol abuse, unspecified Anxiety state, unspecified Anxiety disorder Atrial fibrillation Coronary artery disease Cardiac arrest Cardiomyopathy Congestive heart failure, unspecified Congestive cardiomyopathy Cor athrscl-uns vessel Depressive disorder, not elsewhere classified Dysphagia, oropharyngeal phase Fecal incontinence Goiter Celia's thyroiditis Other and unspecified hyperlipidemia Ocular hypertension, unspecified eye Lumbago Lumbar compression fracture Old myocardial infarct Postmenopausal atrophic vaginitis Subclinical hypothyroidism Type 2 diabetes mellitus Unknown whether patient has any health problems Urinary tract infection FREQUENT Cancer SKIN CANCER Hypertension Anxiety GERD (gastroesophageal reflux disease) HLD (hyperlipidemia) CAD (coronary artery disease) Surgical History History of appendectomy History of cardiac cath 1 STENT (2016 @ [facility]) History of esophagogastroduodenoscopy (EGD) History of colonoscopy History of tonsillectomy S/P placement of cardiac pacemaker ~15-20 YEARS AGO. FOLLOWS WITH DR RUBI AND LAST CHECKED 4 MONTHS AGO History of cholecystectomy Family History Mother Family history of diabetes mellitus Blind Hearing loss Hypertension Allergies Asthma Sister Family history of diabetes mellitus Coronary heart disease Father No problems noted. 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 Physical Exam Physical Exam: Please refer to Dr. Matos's addendum for physical examination findings. Results & Data Results & Data Vital Signs (Past 12 Hours) Vital Signs Temp Pulse Pulse Resp BP BP Pulse Ox 03/06/24 16:35 92 H 16 172/97 H 95 03/06/24 16:32 95 H 18 95 03/06/24 16:32 95 03/06/24 15:43 36.1 C L 113 H 16 200/104 H 96 O2 Del Method 03/06/24 16:35 Room Air 03/06/24 16:32 Room Air 03/06/24 16:32 Room Air 03/06/24 15:43 Room Air Laboratory Results Short CBC 03/06/24 Range/Units 16:00 WBC 7.97 (4.8-10.8) K/ul Hgb 13.4 (12.0-16.0) g/dl Hct 39.6 (37.0-47.0) % Plt Count 186 (130-400) K/uL BMP 09/01/24 16:00 Sodium 138 Potassium 3.8 Chloride 105 Carbon Dioxide 23 BUN 19 Creatinine 0.99 Glucose 166 H Calcium 10.0 Liver Function 03/06/24 Range/Units 16:00 Total Bilirubin 0.7 (0.2-1.0) mg/dl AST 16 (13-39) U/L ALT 10 (7-52) U/L Alkaline Phosphatase 69 (34-104) U/L Albumin 4.7 (3.4-5.0) gm/dl Diagnostic Findings Chest CTA 03/06/24 15:49 CT ANGIOGRAPHY OF THE CHEST DISSECTION PROTOCOL CLINICAL HISTORY: Chest pain. Evaluate for dissection. COMPARISON STUDY: Chest CT September 29, 2017 and chest radiograph performed earlier today. TECHNIQUE: Before and following the IV administration of Optiray, helical axial images of the chest were obtained. Maximal intensity projections and sagittal and coronal reformats were viewed on an independent 3D workstation. IV contrast was administered without complication. Automated exposure control was utilized for the study. A dose lowering technique was utilized adhering to the principles of ALARA. CT DOSE: 1046.64 mGy.cm FINDINGS: A left subclavian biventricular pacer/AICD is in place. The caliber of the thoracic aorta is normal. There is no intramural hematoma or thoracic aortic dissection. The heart is mildly enlarged. There is moderate coronary artery calcification. No pulmonary emboli are identified. Several mildly enlarged mediastinal lymph nodes are present. Subcarinal lymph node measures 1.9 x 1.2 cm. There is no pneumothorax or pleural effusion. An 8 mm low-attenuation right lower lobe nodule is unchanged since CT of September 29, 2017. This is benign given stability. No suspicious pulmonary nodules are present. Extensive groundglass opacities throughout the lungs with multifocal cystic change and reticulation have mildly progressed when compared to CT of September 29, 2017. There is no honeycombing. Old right-sided rib fractures are incidentally noted. IMPRESSION: 1. No thoracic aortic dissection. 2. No pulmonary emboli. 3. Extensive groundglass opacities throughout the lungs with multifocal cystic change and reticulation which have mildly progressed since CT of September 29, 2017. The findings could reflect an infectious process or pulmonary edema superimposed upon interstitial lung disease. Progression of interstitial lung disease could appear similar. 4. A few mildly enlarged mediastinal lymph nodes. These may be reactive. ACT 112: Negative or not required by law. Electronically signed by: Tejinder Archer M.D. 03/06/2024 5:37 PM Chest X-Ray 03/06/24 15:49 XR chest 1V portable CLINICAL HISTORY: Chest pain, nonspecific COMPARISON STUDY: Chest radiograph February 22, 2024. Chest CT September 29, 2017. FINDINGS: A left subclavian biventricular pacer/ICD is unchanged in position. Mild cardiomegaly is unchanged. Mediastinal contours are stable. There is no pneumothorax or pleural effusion. Interstitial thickening within the lungs is similar to prior exam. No superimposed consolidation. IMPRESSION: 1. No acute cardiopulmonary findings. 2. No significant change in interstitial thickening consistent with interstitial lung disease. No superimposed consolidation. ACT 112: Negative or not required by law. Electronically signed by: Tejinder Archer M.D. 03/06/2024 4:28 PM Medications Administered Discontinued Medications Fentanyl Citrate (Fentanyl Citrate Pf 100 Mcg/2 Ml Vial) 50 mcg IV NOW STA Stop: 03/06/24 15:50 Last Admin: 03/06/24 16:06 Dose: 50 mcg Documented By: GEORGINA Ioversol (Optiray 320 125ml) 117 ml IV ONCE ONE Stop: 03/06/24 17:22 Last Admin: 03/06/24 17:22 Dose: 117 ml Documented By: JEIMY Morphine Sulfate (Morphine Sulfate 4 Mg/Ml 1 Ml Carp\Vial) 4 mg IV NOW STA Stop: 03/06/24 17:40 Last Admin: 03/06/24 17:56 Dose: 4 mg Documented By: SNS Code Status & VTE Plan Code Status FULL CODE Supervising Physician Co-Signing Physician Notes 68-year-old lady with PMH of HLD, CAD status post LAD and RCA stent placement, hypothyroidism, T2DM, complete AV block status post biventricular ICD pacemaker placement, transient A-fib, HTN, paroxysmal V. tach, ischemic cardiomyopathy, rheumatic heart disease, CKD stage III, mild dementia, alcohol use disorder, bilateral hearing loss, osteoporosis, urgent continence who recently had cardiac cath on 02/23/2024/no stents were placed at the time/conservative management recommended. patient presents with chest pain today, started when at rest/watching television, radiating down both arms, 9/10 in intensity at onset, not much relieved with nitroglycerin [She took 3 nitro pills and called 911] but relieved with fentanyl in the ED. At the time of bedside exam, she reported chest pain of 2/10 in intensity, describes it as pressure sensation in the central chest, denies exacerbating factors. Per patient, a lot of stressors going on in the family including her uncle just dying and her mother who is 97 moving in with her. Labs reviewed, fairly WNL except for elevated troponin. CTA chest with multifocal cystic change and reticulation which have mildly progressed since 2018 CT. Concern for infectious process versus pulmonary edema superimposed on interstitial lung disease. Patient denies pulmonology f/u as an outpatient, has not set up with any lung doctor as an outpatient per her. Will consult pulmonology while in here. EKG with atrial sensed ventricular paced rhythm with prolonged AV conduction with occasional PVCs. Troponin elevated at 40.4 at presentation, up trended to 211.8. Patient with improvement in chest pain at bedside exam. Trend troponin, get echo, cardiology made aware via TT for further, initiate heparin drip. Continue telemetry monitoring. Will await further cardiology recommendation. Cardiology consulted. SL nitro prn. Nitroglycerine patch. Prn morphine not to exceed 4 doses. Hypertension, uncontrolled: c/w home meds, labetalol 5 mg iv x q4h prn for SBP > 165 mmHg, hold if HR < 55 bpm. Patient denies any acute respiratory symptoms including worsening shortness of breath or worsening cough or worsening color of the sputum. Patient does report chronic cough with cloudy sputum and shortness of breath with activity. Will consult pulmonology given abnormal CT chest finding.No antibiotic for now. Patient denies any febrile illness. On Exam: GENERAL: Alert and oriented x3. NAD, on RA. HEENT: No pallor, no icterus. Pupils equal, round and reactive to light. Oral mucosa moist. NECK: No JVD, no neck masses. HEART: S1 and S2 heard. Regular rate and rhythm. Tachycardia, + murmur, no gallop. RESPIRATORY SYSTEM: Normal AP diameter. No accessory muscle use. No wheezing, occ bl crackles. ABDOMEN: Soft, bowel sounds present, nontender, no distention. CENTRAL NERVOUS SYSTEM: No facial droop. Speech is clear. Obeys simple commands. Moves extremities. EXTREMITIES: No edema, no erythema seen. I have seen and examined the patient and have discussed the case with the provider above. I agree with the assessment and plan as stated. (1) Chest pain Chest pain type: unspecified Qualified Code(s): R07.9 - Chest pain, unspecified
[2024-03-06] MEDS ORDERED: MoRPHine BOLUS from BAG IV PRN (19:06)
[2024-03-06] MEDS ORDERED: MoRPHine SULFATE 2 MG/ML CARP IV PRN (19:19)
[2024-03-06] MEDS: HEPARIN SOD (PORCINE) 1000 UNIT/ML IV ONE (19:29)
[2024-03-06] MEDS: HEPARIN SODIUM/DEXTROSE 25,000 UNITS/500 ML BAG IV SCH (19:30)
[2024-03-06] MEDS: NITROGLYCERIN 2% OINTMENT 30GM TUBE EXT ONE (19:35)
[2024-03-06] MEDS: Heparin IV Adult Wt-Based Standard w/ INITIAL Bolus Protocol IV SCH (19:39)
[2024-03-06] MEDS ORDERED: DEXTROSE 50% 50 ML SYRINGE IV PRN (20:59)
[2024-03-06] MEDS ORDERED: GLUCAGON FOR INJ 1 MG VIAL SQ PRN (20:59)
[2024-03-06] MEDS ORDERED: GLUCOSE 40% GEL 15 GM TUBE PO PRN (20:59)
[2024-03-06] MEDS ORDERED: ACETAMINOPHEN 325 MG TAB PO PRN (20:59)
[2024-03-06] MEDS ORDERED: POLYETHYLENE (MIRALAX) 17 GM PACK PO PRN (20:59)
[2024-03-06] MEDS ORDERED: MAGNESIUM HYDROXIDE SUSP 30 ML UDC PO PRN (20:59)
[2024-03-06] MEDS ORDERED: PROMETHAZINE 6.25 MG/50.25 ML BAG IV PRN (20:59)
[2024-03-06] MEDS ORDERED: NITROGLYCERIN SL 0.4 MG/TAB TAB SL PRN (20:59)
[2024-03-06] MEDS ORDERED: CARBOHYDRATES FOR HYPOGLYCEMIA PO PRN (20:59)
[2024-03-06] MEDS ORDERED: GLUCOSE 10 TAB/TUBE PO PRN (20:59)
[2024-03-06] MEDS ORDERED: LABETALOL HCL IV 5 MG/ML 20ML IV PRN (20:59)
[2024-03-06] MEDS: INSULIN ASPART PER UNIT CHARGE SC SCH (21:10)
[2024-03-06] MEDS: ATORVASTATIN 40 MG TAB PO SCH (22:26)
[2024-03-06] MEDS: CLOPIDOGREL BISULFATE 300 MG TAB PO STA (22:26)
[2024-03-06] MEDS: carvediloL 6.25 MG TAB PO STA (22:26)
[2024-03-06] MEDS: GABAPENTIN 100 MG CAP PO SCH (22:27)
[2024-03-07] MEDS: NITROGLYCERIN 2% OINTMENT 30GM TUBE EXT SCH (00:26)
[2024-03-07 01:31] LABS: Hematocrit (blood only) 35.1 % (37.0-47.0); Mean Corpuscular Hemoglobin 29.9 pg (25.0-34.0); Mean Corpuscular Hgb Conc 34.2 g/dL (32.0-36.0); Mean Corpuscular Volume 87.3 fL (80.0-100.0); Mean Platelet Volume 9.6 fL (9.4-12.4); Platelet Count 148 K/uL (130-400); RDW Coefficient of Variation 13.1 % (11.5-14.5); RDW Standard Deviation 41.1 fL (36.4-46.3); Red Blood Count 4.02 M/uL (4.20-5.40); White Blood Count 7.25 K/ul (4.8-10.8)
[2024-03-07 01:49] LABS: BUN Creatinine Ratio 19.7 (10-20); Calcium 9.3 mg/dl (8.6-10.3); Creatinine Clr Calc Pharmacy 54.5 ml/min; Est GFR (African American) 92.1 ml/min; Est GFR (Non-African American) 79.5 ml/min; Magnesium 1.6 mg/dl (1.7-2.4); Phosphorus 3.1 mg/dl (2.5-4.9); Potassium 3.6 mmol/L (3.5-5.1)
[2024-03-07 01:55] LABS: ANTI-Xa, UFH(UnfractionatedHep 0.64 IU/ml (0.3-0.7)
[2024-03-07 02:13] LABS: Troponin I High Sensitivity 2720.2 pg/ml (0-14)
[2024-03-07] MEDS: INSULIN ASPART PER UNIT CHARGE SC SCH ×2 (06:08→17:23)
[2024-03-07] MEDS: ALENDRONATE SODIUM 70 MG TAB PO SCH (06:08)
[2024-03-07] MEDS: MAGNESIUM SULFATE / D5W 1 GM/100 ML BAG IV ONE (07:58)
[2024-03-07] MEDS: ASPIRIN 81 MG ECTAB PO SCH (08:01)
[2024-03-07] MEDS: OXYBUTYNIN CHLORIDE XL 5 MG TABCR PO SCH (08:01)
[2024-03-07] MEDS: ISOSORBIDE MONO EXTENDED REL 60 MG TABCR PO SCH (08:01)
[2024-03-07] MEDS: MAGNESIUM OXIDE 400 MG TAB PO SCH (08:01)
[2024-03-07] MEDS: hydroCHLOROthiazide 25 MG TAB PO SCH (08:02)
[2024-03-07] MEDS: carvediloL 6.25 MG TAB PO SCH (08:02)
[2024-03-07 08:11] LABS: ANTI-Xa, UFH(UnfractionatedHep 0.57 IU/ml (0.3-0.7)
[2024-03-07 09:14] LABS: Troponin I High Sensitivity 3251.3 pg/ml (0-14)
--- NOTE | 2024-03-07 09:37 | Electrocardiogram Report ---
Test Reason : Blood Pressure : */* mmHG Vent. Rate : 107 BPM Atrial Rate : 107 BPM P-R Int : 224 ms QRS Dur : 146 ms QT Int : 370 ms P-R-T Axes : * -49 121 degrees QTcB Int : 493 ms Atrial-sensed ventricular-paced rhythm with prolonged AV conduction with occasional Premature ventric ular complexes Abnormal ECG When compared with ECG of 24-Feb-2024 04:44, Premature ventricular complexes are now Present Vent. rate has increased by 50 bpm Confirmed by Gianni Pepper ([id number]) on 03/07/2024 9:37:03 AM Referred By: Confirmed By: Gianni Pepper
--- NOTE | 2024-03-07 09:39 | Electrocardiogram Report ---
Test Reason : Blood Pressure : */* mmHG Vent. Rate : 70 BPM Atrial Rate : 70 BPM P-R Int : 292 ms QRS Dur : 148 ms QT Int : 504 ms P-R-T Axes : 8 -49 185 degrees QTcB Int : 544 ms Sinus rhythm with 1st degree A-V block Left axis deviation Left bundle branch block Abnormal ECG When compared with ECG of 06-Mar-2024 19:15, No significant change was found Confirmed by Gianni Pepper ([id number]) on 03/07/2024 9:38:51 AM Referred By: REFERRED SELF Confirmed By: Gianni Pepper
--- NOTE | 2024-03-07 09:42 | Cardiology Consultation ---
Date of Consultation March 07, 2024 Assessment & Plan (1) Non-ST elevation OR (NSTEMI): (2) Coronary artery disease: (3) S/P coronary artery stent placement: (4) Ischemic cardiomyopathy: (5) Dyslipidemia: (6) LBBB (left bundle branch block): Plan ASSESSMENT/PLAN: 1. NSTEMI: Presented with NSTEMI. Troponin still trending upward. Known CAD. LAD wall motion abnormality on preliminary review of today's echo. Significantly reduced LV systolic function. Recommend cardiac catheterization. Risks and benefits of the procedure were discussed with her. She was agreeable to proceed. Discussed with Dr. Gentile of interventional cardiology. Will proceed with cardiac catheterization today. Currently chest pain-free. Continue aspirin. Continue heparin drip. Continue beta-jus. High intensity statin therapy. Received a dose of Plavix yesterday. Recommend ca ia rehab. 2. CAD s/p LAD and RCA PCI: History of LAD and RCA stents. Represented with anginal symptoms and now NSTEMI. Recommend cardiac catheterization as above. Continue antiplatelet therapy, aspirin 81 mg daily indefinitely. Received Plavix last night. Continue beta-jus, high intensity statin therapy. 3. Ischemic cardiomyopathy: History of reduced LV systolic function which had l ater normalized. LV systolic function once again reduced. Optimize medical therapy. Cardiac catheterization as above. Formal review of today's echo is pending. She appears euvolemic. 4. Dyslipidemia: Continue high intensity statin therapy. 5. ICD: Followed by her primary direct support worker/construction operations manager, Dr. Dailey. 6. Left bundle branch block: Chronic. 7. Disposition: Cardiology will continue to follow. Dr. Vega will resume cardiology care tomorrow. Please call on-call direct support worker with any further questions or concerns. Plan of care discussed with primary hospitalist, Dr. Greer. Patient care discussed with interventional cardiology, Dr. Gentile. Patient's was personally contacted via telephone to update him of plan of care and cardiac catheterization. Highly complex medical issues. Thank you for allowing me to participate in the care of your patient. Please call for any other questions or concerns. Sincerely, Eliazar Pepper M.D. History of Present Illness Reason for Consultation: NSTEMI Requesting Physician: Geraldine Saldaña PA-C Attending Physician: Jo Greer MD History of Present Illness Mrs. Painter is a very pleasant 68-year-old female history significant for CAD s/p LAD and RCA PCI, type 2 diabetes, high-grade AV block s/p biventricular ICD, cardiomyopathy, paroxysmal ventricular tachycardia, paroxysmal atrial fibrillation, LBBB, hypertension, and dyslipidemia. Her primary direct support worker is Dr. Dailey. She was admitted on 03/06/2024 with chest discomfort. She describes the chest pain as a left-sided pressure that radiated to bilateral arms and occurred at rest. She denies diaphoresis but did have associated shortness of breath. She had an episode of nausea and vomiting en route to the hospital as her drove her in. She apparently did not have significant improvement in her symptoms with nitroglycerin but rather pain medications. She denies chest discomfort or shortness of breath overnight. She denies orthopnea, syncope, near syncope, palpitations, edema, or bleeding such as melena, hematochezia, or hematuria. She admits that she has had worsening chest discomfort on exertion and dyspnea on exertion over the past few months. She was hospitalized on 02/22/2024 with chest discomfort with troponin levels of 15, peaking at 32 before downtrending. During this hospital stay, her troponin initially was 40 and has continually increased to 3251, not yet peaking. She had a cardiac catheterization on 02/23/2024 for which moderate nonobstructive CAD was reported in her RCA, LAD stent, and circumflex. Review of systems: As above. Review of systems otherwise negative/unremarkable. Family history: No known premature CAD. Social history: She denies tobacco or drug abuse. Occasional alcohol. Lives at home with her and her mother who is currently in her 90s and blind. She has 1 son and 1 grandchild. She was unaccompanied in her hospital room. Allergies Allergy/AdvReac Type Severity Reaction Status Date / Time latex Allergy Intermediate HIVES Verified 03/06/24 17:00 adhesive Allergy Mild SKIN Verified 03/06/24 17:00 IRRITATION penicillin V Allergy Unknown CAN'T Verified 03/06/24 17:00 REMEMBER aspirin AdvReac Mild STOMACH Verified 03/06/24 17:00 UPSET Home Medications Medication Instructions Recorded Confirmed Type nitroglycerin 0.4 mg sublingual 0.4 mg sublingual DIRECTED PRN 06/16/18 03/06/24 History tablet (Nitrostat) Chest Pain atorvastatin 80 mg tablet 80 mg PO HS 03/12/21 03/06/24 History solifenacin 5 mg tablet (Vesicare) 10 mg PO QAM 03/12/21 03/06/24 History acetaminophen 500 mg tablet 1,000 mg PO AMHS 02/15/23 03/06/24 History (Tylenol Extra Strength) aspirin 81 mg tablet,delayed 81 mg PO QAM 04/28/23 03/06/24 History release magnesium oxide 400 mg PO QAM 04/28/23 03/06/24 History hydrochlorothiazide 12.5 mg tablet 12.5 mg PO QAM 02/22/24 03/06/24 History tramadol 50 mg tablet 50 mg PO UD PRN Pain 02/22/24 03/06/24 History carvedilol 6.25 mg tablet 6.25 mg PO BIDM #60 tabs 02/23/24 03/06/24 Rx alendronate 70 mg tablet 70 mg PO .QWEEKLY 03/06/24 03/06/24 History gabapentin 100 mg capsule 100 mg PO HS 03/06/24 03/06/24 History isosorbide mononitrate 120 mg 120 mg PO DAILY 03/06/24 03/06/24 History tablet,extended release 24 hr metformin 500 mg tablet,extended 500 mg PO DAILY 03/06/24 03/06/24 History release 24 hr Problem List S/P coronary artery stent placement Non-ST elevation OR (NSTEMI) (Acute) Chest pain (Acute) Elevated troponin (Acute) LBBB (left bundle branch block) Chest pain (Acute) Generalized weakness (Acute) Dyslipidemia Parainfluenza (Acute) Pneumonia (Acute) RAD (reactive airway disease) (Acute) UGIB (upper gastrointestinal bleed) SOB (shortness of breath) HBP (high blood pressure) GERD (gastroesophageal reflux disease) Osteoporosis AF (paroxysmal atrial fibrillation) Depression Diabetes mellitus, type 2 Fracture of L1 vertebra (Acute) Fall (Acute) Mixed hearing loss, bilateral Coronary artery disease Fatigue ICD (implantable cardioverter-defibrillator), biventricular, in situ Encounter for pre-operative examination Encounter for pre-operative examination Esophageal dysphagia Left knee pain (Acute) Left knee pain (Acute) Unstable angina Syncope (Acute) DVT prophylaxis Acute cystitis Ischemic cardiomyopathy Hypothyroidism PT DENIES. Patient History Medical History S/P right coronary artery (RCA) stent placement (2015) History of placement of stent in LAD coronary artery (2008) History of placement of stent in LAD coronary artery (2019) Hypomagnesemia Acute hypokalemia Non-ST elevation OR (NSTEMI) Pneumonia Acid reflux disease with ulcer Alcohol abuse, unspecified Anxiety state, unspecified Anxiety disorder Atrial fibrillation Coronary artery disease Cardiac arrest Cardiomyopathy Congestive heart failure, unspecified Congestive cardiomyopathy Cor athrscl-uns vessel Depressive disorder, not elsewhere classified Dysphagia, oropharyngeal phase Fecal incontinence Goiter Celia's thyroiditis Other and unspecified hyperlipidemia Ocular hypertension, unspecified eye Lumbago Lumbar compression fracture Old myocardial infarct Postmenopausal atrophic vaginitis Subclinical hypothyroidism Type 2 diabetes mellitus Unknown whether patient has any health problems Urinary tract infection FREQUENT Cancer SKIN CANCER Hypertension Anxiety GERD (gastroesophageal reflux disease) HLD (hyperlipidemia) CAD (coronary artery disease) Surgical History History of appendectomy History of cardiac cath 1 STENT (2015 @ [facility]) History of esophagogastroduodenoscopy (EGD) History of colonoscopy History of tonsillectomy S/P placement of cardiac pacemaker ~15-20 YEARS AGO[address] FOLLOWS WITH [address] DAILEY AND LAST CHECKED 4 MONTHS AGO History of cholecystectomy Family History Mother Family history of diabetes mellitus Blind Hearing loss Hypertension Allergies Asthma Sister Family history of diabetes mellitus Coronary heart disease Father No problems noted. Denies family history of No family history of adverse response to anesthesia No family history of bleeding disorder Heart disease Cancer Stroke Social History Smoking Status: Never smoker Second Hand Exposure: No; Do You Dip or Chew Tobacco: No; Hx Alcohol Use: Yes Alcohol type: beer and hard liquor Alcohol Intake Frequency: 2-3 x/Week Hx Substance Use: No Preferred Language: Salvadorean Communication Ability: Effective Gravel Roofer Required: No Beliefs That Will Affect Care: None marital status: Current Living Situation: Spouse How many Children do You have: 1 Other Information That Helps Us Care for You: No Feels Safe at Home: Yes Safety Concerns: Feels Safe At This Time Assistive Devices: Denture - Upper, Glasses, Hearing Aid - Bilateral and Walker Physical Exam Physical Exam: Gen.: No acute distress. Alert. HEENT: Anicteric sclera. Neck: No JVD. No bruits. Normal carotid upstrokes bilaterally. Cardiac: Regular. Normal S1-S2. No murmurs, rubs, or gallops. Pulmonary: Clear to auscultation bilaterally without wheezes, rales, or rhonchi. Abdomen: Soft, nontender, nondistended, with normoactive bowel sounds. No bruits noted. Extremities: 2+ radial pulses bilaterally. 2+ posterior tibialis pulses bilaterally. No edema or cyanosis. Psychiatric: Affect appears appropriate. Results & Data Vital Signs (Past 12 Hours) Vital Signs Temp Pulse Pulse Resp BP BP Pulse Ox 03/07/24 08:56 03/07/24 08:28 68 03/07/24 07:28 36.6 C 69 19 130/74 03/07/24 06:08 66 137/78 03/07/24 02:47 36.5 C 65 20 118/67 03/06/24 23:58 36.6 C 75 15 124/63 03/06/24 23:44 82 O2 Del Method 03/07/24 08:56 Room Air 03/07/24 08:28 03/07/24 07:28 Room Air 03/07/24 06:08 03/07/24 02:47 Room Air 03/06/24 23:58 Room Air 03/06/24 23:44 Laboratory Results Laboratory Results - last 24 hr 03/06/24 03/06/24 03/06/24 16:00 17:48 21:08 WBC 7.97 RBC 4.53 Hgb 13.4 Hct 39.6 MCV 87.4 MCH 29.6 MCHC 33.8 RDW Std Deviation 40.8 RDW Coeff of Chucky 13.0 Plt Count 186 MPV 10.0 Immature Gran % (Auto) 0.5 Neut % (Auto) 70.6 Lymph % (Auto) 20.1 Webb % (Auto) 6.4 Eos % (Auto) 2.0 Baso % (Auto) 0.4 Neut # (Auto) 5.63 Lymph # (Auto) 1.60 Webb # (Auto) 0.51 Eos # (Auto) 0.16 Baso # (Auto) 0.03 Immature Gran # (Auto) 0.04 PT 10.5 INR 1.0 Heparin Anti-Xa, Unfract Sodium 138 Potassium 3.8 Chloride 105 Carbon Dioxide 23 Anion Gap 10 BUN 19 Creatinine 0.99 Est Cr Clr Drug Dosing Not Reportable Est GFR ( Amer) 66.9 Est GFR (Non-Af Amer) 57.7 BUN/Creatinine Ratio 19.2 Glucose 166 H POC Glucose 154 H Calcium 10.0 Phosphorus Magnesium Total Bilirubin 0.7 AST 16 ALT 10 Alkaline Phosphatase 69 Troponin I High Sens 40.4 H 211.8 H* D Total Protein 8.1 Albumin 4.7 Globulin 3.4 Albumin/Globulin Ratio 1.4 Lipase 35 03/06/24 03/07/24 03/07/24 21:28 01:14 06:06 WBC 7.25 RBC 4.02 L Hgb 12.0 Hct 35.1 L MCV 87.3 MCH 29.9 MCHC 34.2 RDW Std Deviation 41.1 RDW Coeff of Chucky 13.1 Plt Count 148 MPV 9.6 Immature Gran % (Auto) Neut % (Auto) Lymph % (Auto) Webb % (Auto) Eos % (Auto) Baso % (Auto) Neut # (Auto) Lymph # (Auto) Webb # (Auto) Eos # (Auto) Baso # (Auto) Immature Gran # (Auto) PT INR Heparin Anti-Xa, Unfract 0.64 Sodium 137 Potassium 3.6 Chloride 106 Carbon Dioxide 23 Anion Gap 8 BUN 15 Creatinine 0.76 Est Cr Clr Drug Dosing 54.5 Est GFR ( Amer) 92.1 Est GFR (Non-Af Amer) 79.5 BUN/Creatinine Ratio 19.7 Glucose 157 H POC Glucose 141 H Calcium 9.3 Phosphorus 3.1 Magnesium 1.6 L Total Bilirubin AST ALT Alkaline Phosphatase Troponin I High Sens 1374.0 H* D 2720.2 H* D Total Protein Albumin Globulin Albumin/Globulin Ratio Lipase 03/07/24 03/07/24 07:17 08:37 WBC RBC Hgb Hct MCV MCH MCHC RDW Std Deviation RDW Coeff of Chucky Plt Count MPV Immature Gran % (Auto) Neut % (Auto) Lymph % (Auto) Webb % (Auto) Eos % (Auto) Baso % (Auto) Neut # (Auto) Lymph # (Auto) Webb # (Auto) Eos # (Auto) Baso # (Auto) Immature Gran # (Auto) PT INR Heparin Anti-Xa, Unfract 0.57 Sodium Potassium Chloride Carbon Dioxide Anion Gap BUN Creatinine Est Cr Clr Drug Dosing Est GFR ( Amer) Est GFR (Non-Af Amer) BUN/Creatinine Ratio Glucose POC Glucose Calcium Phosphorus Magnesium Total Bilirubin AST ALT Alkaline Phosphatase Troponin I High Sens 3251.3 H* Total Protein Albumin Globulin Albumin/Globulin Ratio Lipase Diagnostic Findings ECGs personally reviewed: ECG 03/06/2024 at 1551: Atrial sensed ventricular paced 107 bpm. Sinus tachycardia. ECG 03/06/2024 at 1915: Sinus rhythm first-degree AV block. LBBB. ECG 03-29 at 2:30 AM: Sinus rhythm first-degree AV block 70 bpm. LBBB. ECG 03-29 at 6:30 AM: Sinus rhythm first-degree AV block 73 bpm. LBBB. Labs reviewed and notable for elevated high-sensitivity troponin, initially 40 and has since increased to 3251. Normal renal function, normal potassium, mild hypomagnesemia, normal blood counts. History and physical report reviewed. Coronary angiography images from 02/23/2024 personally reviewed. Cardiac cath 02/23/2024 report reviewed: Proximal and mid LAD stents with in- stent restenosis < 40%. D1 ostial 100%. Proximal circumflex diffuse 60%. OM1 proximal 40%. Proximal and mid RCA 50 to 60%. CTA chest 03/06/2024: No thoracic aortic dissection. No pulmonary emboli per radiology. Extensive groundglass opacities with multifocal cystic change and reticulation progressed from 09/29/2017 per radiology. This could reflect infectious process versus pulmonary edema superimposed upon interstitial lung disease per radiology. Progression of interstitial lung disease could appear similar. Echo report 02/22/2024 reviewed: Reduced LV systolic function. EF 40 to 45%. Global hypokinesis. Moderate LVH. Mild MR. Medications Administered Current Inpatient Medications Acetaminophen (Acetaminophen 325 Mg Tab) 650 mg PO Q4H PRN PRN Reason: Pain or Fever Stop: 04/05/24 20:58 Alendronate Sodium (Alendronate Sodium 70 Mg Tab) 70 mg PO Mo [facility] Stop: 04/06/24 06:29 Last Admin: 03/07/24 06:08 Dose: 70 mg Aspirin (Aspirin 81 Mg Ectab) 81 mg PO QAM [facility] Stop: 04/06/24 08:59 Last Admin: 03/07/24 08:01 Dose: 81 mg Atorvastatin Calcium (Atorvastatin 40 Mg Tab) 80 mg PO [facility] Stop: 04/05/24 20:59 Last Admin: 03/06/24 22:26 Dose: 80 mg Carvedilol (Carvedilol 6.25 Mg Tab) 6.25 mg PO BIDM [facility] Stop: 04/06/24 07:59 Last Admin: 03/07/24 08:02 Dose: 6.25 mg Dextrose (Dextrose 50% 50 Ml Syringe) 25 - 50 ml IV UD PRN; Protocol PRN Reason: Hypoglycemia Protocol Stop: 04/05/24 20:58 Gabapentin (Gabapentin 100 Mg Cap) 100 mg PO [facility] Stop: 04/05/24 20:59 Last Admin: 03/06/24 22:27 Dose: 100 mg Glucagon (Glucagon For Inj 1 Mg Vial) 1 mg SQ UD PRN; Protocol PRN Reason: Hypoglycemia Protocol Stop: 04/05/24 20:58 Glucose (Glucose 40% Gel 15 Gm Tube) 15 - 30 gm PO UD PRN; Protocol PRN Reason: Hypoglycemia Protocol Stop: 04/05/24 20:58 Glucose (Glucose 10 Tab/Tube) 4 - 8 tab PO UD PRN; Protocol PRN Reason: Hypoglycemia Treatment Stop: 04/05/24 20:58 Hydrochlorothiazide (Hydrochlorothiazide 25 Mg Tab) [facility] Stop: 04/06/24 08:59 Last Admin: 03/07/24 08:02 Dose: 12.5 mg Heparin Sodium/Dextrose (Heparin Sodium/Dextrose) 25,000 units in 500 mls @ 19 mls/hr IV .Q24H ARTIE; Protocol Stop: 04/05/24 19:14 Last Admin: 03/06/24 19:30 Dose: 950 units/hr, 19 mls/hr Promethazine HCl (Phenergan) 6.25 mg in 50.25 mls @ 201 mls/hr IV Q6H PRN PRN Reason: Nausea And Vomiting Stop: 04/05/24 20:58 Insulin Aspart (Insulin Aspart Per Unit Charge) 0 units SC Q6 [facility] Stop: 04/06/24 05:59 Last Admin: 03/07/24 06:08 Dose: Not Given Isosorbide Mononitrate (Isosorbide Webb Extended Rel 60 Mg Tabcr) 120 mg PO DAILY [facility] Stop: 04/06/24 08:59 Last Admin: 03/07/24 08:01 Dose: 120 mg Labetalol HCl (Labetalol Hcl Iv 5 Mg/Ml 20ml) 5 mg IV Q4H PRN PRN Reason: SBP>165, Hold if HR<55 Stop: 04/05/24 20:58 Magnesium Hydroxide (Magnesium Hydroxide Susp 30 Ml Udc) 30 ml PO Q12H PRN PRN Reason: Constipation Stop: 04/05/24 20:58 Magnesium Oxide (Magnesium Oxide 400 Mg Tab) 400 mg PO QAM [facility] Stop: 04/06/24 08:59 Last Admin: 03/07/24 08:01 Dose: 400 mg Miscellaneous (Carbohydrates For Hypoglycemia ) 15 - 30 gm PO UD PRN PRN Reason: Hypoglycemia Protocol Stop: 04/05/24 20:58 Morphine Sulfate (Morphine Sulfate 2 Mg/Ml Carp) 1 mg IV Q30M PRN PRN Reason: CHEST PAIN NOT RELVD BY NITRO Nitroglycerin (Nitroglycerin 2% Ointment 30gm Tube) 1 inch EXT Q6 [facility] Stop: 04/06/24 00:29 Last Admin: 03/07/24 06:09 Dose: 1 inch Nitroglycerin (Nitroglycerin Sl 0.4 Mg/Tab Tab) 0.4 mg SL Q5M PRN PRN Reason: Chest Pain Stop: 04/05/24 20:58 Oxybutynin Chloride (Oxybutynin Chloride Xl 5 Mg Tabcr) 10 mg PO QAM [facility] Stop: 04/06/24 08:59 Last Admin: 03/07/24 08:01 Dose: 10 mg Polyethylene Glycol (Polyethylene (Miralax) 17 Gm Pack) 17 gm PO DAILY PRN PRN Reason: Constipation Stop: 04/05/24 20:58 PG Care Time/CCT Total # of Minutes Spent Total Time Spent with Patient: Total time spent is greater than 50% in coordination of care (as documented) at patient's floor/unit and/or counseling patient: Coding Level of Care Code 57860 INT INP/OBS CARE 3/75MIN Diagnoses Non-ST elevation OR (NSTEMI) I21.4 Coronary artery disease I25.10 S/P coronary artery stent placement Z95.5 Ischemic cardiomyopathy I25.5 Dyslipidemia E78.5 LBBB (left bundle branch block) I44.7
--- NOTE | 2024-03-07 10:47 | Hospitalist Progress Note ---
Date of Service March 07, 2024 Assessment & Plan (1) Chest pain: (2) Elevated troponin: Plan 68y/o F with PMHx of dyslipidemia, CAD s/p LAD and RCA stent placement, hypothyroidism, DM type II, complete AV block s/p biventricular ICD pacemaker placement, transient atrial fibrillation, HTN, paroxysmal ventricular tachycardia, ischemic cardiomyopathy, rheumatic heart disease, CKD stage III, mild dementia, alcohol use disorder, bilateral hearing loss, osteoporosis, urge incontinence who presented to the ED with chest pain. Patient previously admitted to [facility] on 02/22/24 with chest pain. She underwent cardiac catheterization on 02/22. No new stents were placed at that time. Her prior stents were patent but with moderate in-stent restenosis. Echo on 02/21 showed the following: mild to moderately reduced LV systolic fx, LVEF=40-45%, septal motion consistent with conduction abnormality, moderate global kinesis of the LV, moderate concentric LV hypertrophy and elevated RV systolic pressure of 30-40mmHg. Her Coreg was increased to 6.25mg BID. Also noted to have a Hgb A1c of 6.5% at that time. She was discharged home on 02/23. Chest Pain NSTEMI History of Coronary Artery Disease s/p stents Presenting EKG showed prolonged AV conduction w/ occasional PVCs. Repeat EKG w/ 1st degree AV block, LAD, LBBB. Trop trended from 40.4 on admission to 3251 this AM Discussed with Tank Charger Dr Pepper this AM Patient planned for Cardiac catheterization this AM Continue ASA, heparin gtt Will follow up cath findings and TTE Continue atorvastatin Uncontrolled Hypertension: BP 200/104 on arrival, SBP in the 160s when patient seen in ED. BP is currently controlled and normal Continue carvedilol HCTZ held in view of planned cath, will get contrast load Interstitial Lung Disease: Chest CTA remarkable for extensive groundglass opacities throughout the lungs with multifocal cystic change and reticulation. Appears to be a new diagnosis. Patient reports chronic cough producing whitish/cloudy sputum and SOB with activity. Pulm consulted DM Type II: Hold home metformin, SSI regimen while inpatient. Hgb A1c 6.5% from previous admission. BSG checks ACHS. CKD Stage III: Cr stable at 0.99, baseline Cr ~1. Avoid nephrotoxic meds when able and monitor renal fx closely. DVT Prophylaxis: SCDs/TEDs for now in setting of IV heparin ip. Code Status: FULL CODE PCP: Luzma Yu MD I spent a total of 50 minutes coordinating, documenting and providing care for this patient excluding time spent in performance of separately billed services Admission and Anticipated Discharge Date Admission Date: March 06, 2024 Subjective Patient seen and examined Reports chest pain is resolved Reports mild cough and exertional dyspnea Denied dizziness Denied nausea today. No vomiting, abd pain, diarrhea Denied fever, chills Physical Exam Constitutional: + well hydrated; no acute distress Eyes: PERRL, conjunctivae normal, anicteric sclerae ENMT: +hearing deficits Respiratory: normal respiratory effort, lungs clear to auscultation Cardiovascular: Rate/Rhythm: regular rate and regular rhythm Gastrointestinal (Abdomen): normal bowel sounds, soft, nontender, no hepatosplenomegaly Musculoskeletal: No pedal edema Neurologic: PERRL, EOMI, accommodation nl, no face palsy, no dysarthria Psychiatric: A+Ox3, euthymic affect Results & Data Results & Data Vital Signs (Past 12 Hours) Vital Signs Temp Pulse Pulse Resp BP BP Pulse Ox 03/07/24 08:56 03/07/24 08:28 68 03/07/24 07:28 36.6 C 69 19 130/74 95 03/07/24 06:08 66 137/78 03/07/24 02:47 36.5 C 65 20 118/67 95 03/06/24 23:58 36.6 C 75 15 124/63 95 03/06/24 23:44 82 O2 Del Method 03/07/24 08:56 Room Air 03/07/24 08:28 03/07/24 07:28 Room Air 03/07/24 06:08 03/07/24 02:47 Room Air 03/06/24 23:58 Room Air 03/06/24 23:44 Laboratory Results Abnormal lab results 03/06/24 03/06/24 03/06/24 Range/Units 16:00 17:48 21:08 RBC (4.20-5.40) M/uL Hct (37.0-47.0) % Glucose 166 H (70-99(Fasting)) mg/dl POC Glucose 154 H (70-99) mg/dl Magnesium (1.7-2.4) mg/dl Troponin I High Sens 40.4 H 211.8 H* D (0-14) pg/ml 03/06/24 03/07/24 03/07/24 Range/Units 21:28 01:14 06:06 RBC 4.02 L (4.20-5.40) M/uL Hct 35.1 L (37.0-47.0) % Glucose 157 H (70-99(Fasting)) mg/dl POC Glucose 141 H (70-99) mg/dl Magnesium 1.6 L (1.7-2.4) mg/dl Troponin I High Sens 1374.0 H* D 2720.2 H* D (0-14) pg/ml 03/07/24 Range/Units 08:37 RBC (4.20-5.40) M/uL Hct (37.0-47.0) % Glucose (70-99(Fasting)) mg/dl POC Glucose (70-99) mg/dl Magnesium (1.7-2.4) mg/dl Troponin I High Sens 3251.3 H* (0-14) pg/ml (1) Chest pain Chest pain type: unspecified Qualified Code(s): R07.9 - Chest pain, unspec ified
[2024-03-07] MEDS: niCARdipine HCL INJ 2.5 MG/ML 10 ML AMP ONE (11:32)
[2024-03-07] MEDS: IODIXANOL (VISIPAQUE) 320 MG/ML 100ML IV ONE (11:33)
[2024-03-07] MEDS: ATROPINE SULFATE 0.1 MG/ML 10ML SYR IV ONE ×2 (11:33)
[2024-03-07] MEDS: NITROGLYCERIN/D5W 100MCG/ML 20ML SYR ONE (11:33)
--- NOTE | 2024-03-07 12:43 | Pre Anesthesia Assessment ---
Date of Service March 07, 2024 Pre Sedation Assessment Vital Signs Temp Pulse Pulse Resp BP BP BP 03/07/24 08:56 03/07/24 08:28 68 03/07/24 07:28 97.9 F 69 19 130/74 03/07/24 06:08 66 137/78 03/07/24 02:47 97.7 F 65 20 118/67 03/06/24 23:58 97.9 F 75 15 124/63 03/06/24 23:44 82 03/06/24 21:18 112 H 03/06/24 21:00 97.7 F 100 H 18 161/89 H 03/06/24 20:15 88 18 159/94 H 03/06/24 20:14 87 03/06/24 18:00 91 H 20 152/93 H 03/06/24 16:35 92 H 16 172/97 H 03/06/24 16:32 95 H 18 03/06/24 16:32 03/06/24 16:17 94 H 03/06/24 15:43 97.0 F L 113 H 16 200/104 H Pulse Ox O2 Del Method 03/07/24 08:56 Room Air 03/07/24 08:28 03/07/24 07:28 95 Room Air 03/07/24 06:08 03/07/24 02:47 95 Room Air 03/06/24 23:58 95 Room Air 03/06/24 23:44 03/06/24 21:18 03/06/24 21:00 97 Room Air 03/06/24 20:15 95 Room Air 03/06/24 20:14 03/06/24 18:00 94 Room Air 03/06/24 16:35 95 Room Air 03/06/24 16:32 95 Room Air 03/06/24 16:32 95 Room Air 03/06/24 16:17 03/06/24 15:43 96 Room Air Cardiovascular + regular rate Respiratory + respiratory effort normal Pre-Sedation Airway Assessment Smoking Status: Never smoker Hx Sleep Apnea: No Hx Difficult Intubation: No Thyromental Distance: < 3.5 Finger Breadths Oral Cavity: + Dental Abnormalities Mallampati Class: III ASA: ASA3 Procedure Planning Contraindications for Sedation: none Current Medications Reviewed: Yes Notes The planned sedation has been discussed with the patient. Informed Consent was obtained. I have identified the patient, determined the appropriateness of sedation and have assessed the patient immediately prior to the procedure. All medicine(s) and interventions are by my order.
--- NOTE | 2024-03-07 12:44 | Post Anesthesia Assessment ---
Date of Service March 07, 2024 Post Sedation Assessment Vital Signs Temp Pulse Pulse Resp BP BP BP 03/07/24 08:56 03/07/24 08:28 68 03/07/24 07:28 97.9 F 69 19 130/74 03/07/24 06:08 66 137/78 03/07/24 02:47 97.7 F 65 20 118/67 03/06/24 23:58 97.9 F 75 15 124/63 03/06/24 23:44 82 03/06/24 21:18 112 H 03/06/24 21:00 97.7 F 100 H 18 161/89 H 03/06/24 20:15 88 18 159/94 H 03/06/24 20:14 87 03/06/24 18:00 91 H 20 152/93 H 03/06/24 16:35 92 H 16 172/97 H 03/06/24 16:32 95 H 18 03/06/24 16:32 03/06/24 16:17 94 H 03/06/24 15:43 97.0 F L 113 H 16 200/104 H Pulse Ox O2 Del Method 03/07/24 08:56 Room Air 03/07/24 08:28 03/07/24 07:28 95 Room Air 03/07/24 06:08 03/07/24 02:47 95 Room Air 03/06/24 23:58 95 Room Air 03/06/24 23:44 03/06/24 21:18 03/06/24 21:00 97 Room Air 03/06/24 20:15 95 Room Air 03/06/24 20:14 03/06/24 18:00 94 Room Air 03/06/24 16:35 95 Room Air 03/06/24 16:32 95 Room Air 03/06/24 16:32 95 Room Air 03/06/24 16:17 03/06/24 15:43 96 Room Air Recovery Score Activity: Moves 4 extremities Respiration: Deep Breath/Cough Circulation: +/-20% PreAnes Value Consciousness: Fully Awake Oxygen Saturation: O2 needed for >90% Discharge Sedation Level of Care: Fast Track Phase II Post Sedation Plan On clinical assessment, the patient appears to have tolerated the sedation without complications. Patient is recovering as anticipated. Patient will continue to be monitored by nursing and may be discharged when sedation discharge criteria are met per below protocol. Upon Completions of procedure up to 15 minutes continue every 5 minute vital signs and the P.A.R. score; then discharge to a Phase I or Fast Track to Phase II per the following guidelines: * Discharge Patient to appropriate Phase II area if PAR is 8 or greater or return to pre- procedure baseline. The post - procedure orders will be as directed. * If PAR score is less than 8 or not return to pre-procedure baseline then patient will follow Phase I monitoring till PAR is reached for Phase II. The Phase I may be done in procedure room or may call to secure a Phase I area. * If naloxone or flumazenil are used for reversal, hold in Phase I for continued monitoring from when last reversal dose was given for a minimum of 60 minutes or longer pending the nurse and/or physician discretion of patient condition before discharge to Phase II. Please call the Sedation Physician to re-evaluate and complete post-note for discharge to Phase II area. Do NOT discharge from procedure sedation or Phase 1 until post- sedation evaluation note is complete by procedure /sedation MD Sedation Discharge Instructions to be given to the patient at discharge to home.
--- NOTE | 2024-03-07 12:53 | Cardiac Catheterization ---
[facility] Data: Payroll And Benefits Coordinator Cardiac Status Clinical evaluation leading to the procedure CAD Presenation: Non STEMI Anginal Classification: CCS IV Diagnostic Physicians Name: Burt Gentile MD Closure Device Recommendations: Medical Therapy and/or Counseling Cardiac Cath Procedure Full Procedure Date March 07, 2024 Pre-Procedure Diagnosis Pre-Procedure Diagnosis: Non STEMI and CAD AUC Score AUC Score: 7 Post-Procedure Diagnosis Post-Procedure Diagnosis: Severe CAD, Successful PCI and Normal Intracardiac Pressures Procedure(s) Performed Procedure(s) Performed: Coronary Angiography, Left Heart Cath, PTCA, Drug Eluting Stent, Ultrasound Guided Vascular Access, IVUS and Fractional Flow [place] Satin Finisher Burt Gentile MD Homebound Teacher(s) Timothy Estimated Blood Loss Estimated Blood Loss: 15 Medication(s) Medication(s): Clopidogrel, Fentanyl, Heparin, Lidocaine 1%, Nicardipine, Nitroglycerin and Versed Summary of Findings Indication: Recurrent angina. ACS. New LV dysfunction with apical wall motion abnormality Access: 6 Fr slender right ulnar artery under ultrasound guidance Catheters: [place], pigtail, EBU 3.5 guide Findings: LM -normal caliber, mid luminal regularities LAD -medium caliber, 40% proximal stenosis just prior to previous stents. Proximal to mid stents with patent with diffuse in-stent restenosis up to 60- 70%. Distal vessel with 40 to 50% stenosis and wraps around apex. Jailed D2 small with diffuse disease. Small D3 with 70% ostial stenosis. Soodi814% chronic proximal occlusion. Fills distally via left to left collaterals. Circumflex -medium caliber, calcified 60-70% mid segment disease extending to bifurcation with OM 2. Medium caliber OM 2 with 50 to 60% proximal disease. Small high OM1 with 60% disease RCA -dominant, medium caliber, patent mid segment stent with 60-70% in-stent restenosis. Small PDA, PLB's without significant disease. LVEDP -8 IVUS/FFR Left main cannulated with EBU 3.5 guide [place] blue wire placed into distal LAD Lynne IVUS catheter placed to mid LAD. IVUS pullback revealed no significant disease at distal edge of prior stents. In more proximal aspect of stent heavily calcified with at least moderate renarrowing. No evidence of acute thrombus. Moderate mildly calcified disease at proximal edge of prior stent. Floor Worker 50 wire navigated into circumflex. IVUS catheter placed to mid LAD. Circumferential heavily calcified disease prevented catheter from passing into OM 2. No significant ostial/proximal circumflex disease. No left main disease. FFR omni wire placed into distal LAD IFR 0.81 Decision to proceed with PCI of LAD -- PCI -- Antithrombotic therapy: Heparin, clopidogrel Procedure: Proximal/mid aspect of prior stents dilated with 3.0 NC balloon to high atmospheres. Prior stents expanded appropriately. New ANTI placed to proximal LAD overlapping proximal edge of prior stents (3.0 x 8 mm Rui) Stent postdilated with 3.5 NC Post procedure SASHA 3 flow, stents well expanded with minimal residual stenosis and no apparent cardiac complications. Arterial Closure: TR band Summary: 1. Multi-vessel coronary artery disease - 70% proximal to mid LAD in-stent restenosis (flow-limiting by IFR 0.81). 60-70% mid circumflex 60 to 70% mid LAD in-stent restenosis 100% ramus chronic total occlusion. Fills via left to left collaterals 2. Normal left-sided filling pressure 3. Successful angioplasty of proximal to mid LAD in-stent restenosis (3.0 NC) and stenting of proximal LAD overlapping proximal edge of prior stents (3.0 x 8 mm Rui; postdilated with 3.5 NC). Recommendations: To PCU for continued monitoring Reloaded with clopidogrel 300 mg in Payroll And Benefits Coordinator Continue dual-antiplatelet therapy for at least 6 months, consider extended P2Y12 in the setting of overlapping stents Continue statin, and ASCVD risk factor modification Consult cardiac Rehab Plan on medical management of residual CAD unless refractory angina. Hemodynamics Rest Ao:: 101/55/73 Final Ao: 144/59/73 LV: 102/8 Recommendations Recommendations: Medical Therapy and/or Counseling Radiation Exposure (mGy) 2061 Contrast (mls) 100 Anesthesia Moderate [id number] Procedural Complication(s) None Disposition PCU I attest to the content of the Intraoperative Record and any orders documented therein. Any exceptions are noted below. YeahkaG Card Cath Procedure Codes Cardiac Catheterization Procedure 1: Cardiovascular Cath Procedures: 62173 Coronaries and LHC (+/-LV) Procedure 2: Cardiovascular Cath Procedures: 64680 (Doppler) Pressure Wire Therapeutic Services & Ancillary Procedure 1: Cardiovascular Tx and Anc Procedures: 60982 IV Ultrasound (Coronary or Graft) Procedure 2: Cardiovascular Tx and Anc Procedures: 14424 IV Ultrasound Ea addl vessel Procedure 3: Cardiovascular Tx and Anc Procedures: 09987 Ultrasonic Guidance Vascular Access Moderate Sedation Procedure 1: Sedation/Anesthesia: 19896 Mod Sedation by the same physician;Init15 Min Child Age 5 & Up Procedure 2: Sedation/Anesthesia: 79796 Mod Sedation by the same physician; Ea [id number] Minutes Stenting Procedure 1: Cardiovascular Stent Procedures: 06057 Perc transcatheter placement of intracoronary stent(s), with ang PG Care Time/CCT Total # of Minutes Spent Total Time Spent with Patient: Total time spent is greater than 50% in coordination of care (as documented) at patient's floor/unit and/or counseling patient:
[2024-03-07] MEDS: HEPARIN (PORCINE) 1000 UNIT/ML 10 ML (CATH LAB USE ONLY) ONE (13:03)
[2024-03-07] MEDS: CLOPIDOGREL BISULFATE 300 MG TAB ONE (13:03)
[2024-03-07] MEDS: MIDAZOLAM HCL 1 MG/ML 2ML VIAL ONE (13:03)
[2024-03-07] MEDS: fentaNYL citrate PF 100 MCG/2 ML VIAL ONE (13:03)
[2024-03-07] MEDS: OPTIRAY 350 ONE (13:03)
[2024-03-07] MEDS: diphenhydrAMINE 50 MG/ML VIAL ONE (13:03)
--- NOTE | 2024-03-07 14:31 | Pulmonary Consultation ---
Date of Consultation March 07, 2024 Assessment & Plan (1) Interstitial lung disease: Plan Impression: 68-year-old female with progressive bilateral upper lobe interstitial opacities compared to CT scan from 5 or 6 years ago. She is admitted with an acute coronary syndrome and is status post stent placement. Lung findings appear to be an incidental finding. She is not established with pulmonary and will require outpatient pulmonary evaluation. Recommendations: 1. Management and optimization of the patient's underlying acute coronary syndrome is recommended. 2. With regards to her pulmonary evaluation, this is largely an outpatient workup. If she does not need supplemental oxygen, from a pulmonary perspective she can be dismissed from the hospital with outpatient pulmonary follow-up. Will initiate her serological evaluation at this time with an GROVER, ANCA, GUILLE, rh eumatoid factor, anti-CCP, ESR, CRP, and CPK. Additional evaluation will depend on PFTs and clinical course. 3. Will likely require high-resolution CT scan in the outpatient setting once her acute cardiac issues are resolved. Inks for the opportunity of evaluating this patient. Again we would be happy to see her back in the pulmonary clinic in the outpatient setting if she wishes to follow here. If not, she can follow-up with [email or web address] in [place] which may be closer for her. Pulmonary will sign off. Feel free to contact us with questions or concerns History of Present Illness Attending Physician: Jo Greer MD History of Present Illness Asked by hospitalist to assist in evaluation management this patient with hypoxemia and an abnormal CT scan. History is obtained from discussion with the patient and her as well as review of the electronic medical record. The patient is a 68-year-old female is admitted with chest pain and shortness of breath. She recently underwent stent placement and was taken back for repeat cardiac catheterization showing in-stent restenosis requiring placement of stents. She is now on room air. She is not coughing or expectorating phlegm. She does not report previous pulmonary evaluation. She is a non-smoker. No significant occupational or environmental exposures that she is aware of. She cannot recall having had PFTs performed previously. Allergies Allergy/AdvReac Type Severity Reaction Status Date / Time latex Allergy Intermediate HIVES Verified 03/06/24 17:00 adhesive Allergy Mild SKIN Verified 03/06/24 17:00 IRRITATION penicillin V Allergy Unknown CAN'T Verified 03/06/24 17:00 REMEMBER aspirin AdvReac Mild STOMACH Verified 03/06/24 17:00 UPSET Home Medications Medication Instructions Recorded Confirmed Type nitroglycerin 0.4 mg sublingual 0.4 mg sublingual DIRECTED PRN 06/16/18 03/06/24 History tablet (Nitrostat) Chest Pain atorvastatin 80 mg tablet 80 mg PO HS 03/12/21 03/06/24 History solifenacin 5 mg tablet (Vesicare) 10 mg PO QAM 03/12/21 03/06/24 History acetaminophen 500 mg tablet 1,000 mg PO AMHS 02/15/23 03/06/24 History (Tylenol Extra Strength) aspirin 81 mg tablet,delayed 81 mg PO QAM 04/28/23 03/06/24 History release magnesium oxide 400 mg PO QAM 04/28/23 03/06/24 History hydrochlorothiazide 12.5 mg tablet 12.5 mg PO QAM 02/22/24 03/06/24 History tramadol 50 mg tablet 50 mg PO UD PRN Pain 02/22/24 03/06/24 History carvedilol 6.25 mg tablet 6.25 mg PO BIDM #60 tabs 02/23/24 03/06/24 Rx alendronate 70 mg tablet 70 mg PO .QWEEKLY 03/06/24 03/06/24 History gabapentin 100 mg capsule 100 mg PO HS 03/06/24 03/06/24 History isosorbide mononitrate 120 mg 120 mg PO DAILY 03/06/24 03/06/24 History tablet,extended release 24 hr metformin 500 mg tablet,extended 500 mg PO DAILY 03/06/24 03/06/24 History release 24 hr Patient History Medical History (Updated 03/07/24 @ 14:32 by Kain Burgos MD) S/P right coronary artery (RCA) stent placement (2015) History of placement of stent in LAD coronary artery (2008) History of placement of stent in LAD coronary artery (2019) Hypomagnesemia Acute hypokalemia Non-ST elevation ME (NSTEMI) Pneumonia Acid reflux disease with ulcer Alcohol abuse, unspecified Anxiety state, unspecified Anxiety disorder Atrial fibrillation Coronary artery disease Cardiac arrest Cardiomyopathy Congestive heart failure, unspecified Congestive cardiomyopathy Cor athrscl-uns vessel Depressive disorder, not elsewhere classified Dysphagia, oropharyngeal phase Fecal incontinence Goiter Celia's thyroiditis Other and unspecified hyperlipidemia Ocular hypertension, unspecified eye Lumbago Lumbar compression fracture Old myocardial infarct Postmenopausal atrophic vaginitis Subclinical hypothyroidism Type 2 diabetes mellitus Unknown whether patient has any health problems Urinary tract infection FREQUENT Cancer SKIN CANCER Hypertension Anxiety GERD (gastroesophageal reflux disease) HLD (hyperlipidemia) CAD (coronary artery disease) Surgical History (Updated 03/07/24 @ 13:25 by Gianni Pepper MD) History of appendectomy History of cardiac cath 1 STENT (2016 @ [facility]) History of esophagogastroduodenoscopy (EGD) History of colonoscopy History of tonsillectomy S/P placement of cardiac pacemaker ~15-20 YEARS AGO. FOLLOWS WITH DR RUBI AND LAST CHECKED 4 MONTHS AGO History of cholecystectomy Family History Mother Family history of diabetes mellitus Blind Hearing loss Hypertension Allergies Asthma Sister Family history of diabetes mellitus Coronary heart disease Father No problems noted. Denies family history of No family history of adverse response to anesthesia No family history of bleeding disorder Heart disease Cancer Stroke Social History Smoking Status: Never smoker Second Hand Exposure: No; Do You Dip or Chew Tobacco: No; Hx Alcohol Use: Yes Alcohol type: beer and hard liquor Alcohol Intake Frequency: 2-3 x/Week Hx Substance Use: No Preferred Language: Mohawk Communication Ability: Effective Quality Control Tech Required: No Beliefs That Will Affect Care: None marital status: Current Living Situation: Spouse How many Children do You have: 1 Other Information That Helps Us Care for You: No Feels Safe at Home: Yes Safety Concerns: Feels Safe At This Time Assistive Devices: Denture - Upper, Glasses, Hearing Aid - Bilateral and Walker Review of Systems Review of Systems: All systems reviewed & are unremarkable except as noted in Subjective Physical Exam Constitutional: WD/WN, vitals as above Neck: trachea midline, no thyromegaly Respiratory: normal respiratory effort, lungs clear to auscultation Cardiovascular: RRR, no murmur, no edema Gastrointestinal (Abdomen): normal bowel sounds, soft, nontender, no hepatosplenomegaly Musculoskeletal: Extremities: extremities normal to inspection Skin: no rashes, warm and dry Neurologic: Nonfocal exam Lymphatic: no cervical lymphadenopathy Results & Data Results & Data Vital Signs (Past 12 Hours) Vital Signs Temp Pulse Pulse Resp BP BP Pulse Ox 03/07/24 13:59 71 16 137/77 93 03/07/24 13:45 73 16 133/74 93 03/07/24 13:30 130/75 93 03/07/24 13:14 71 16 105/63 96 03/07/24 13:00 72 16 113/66 95 03/07/24 08:56 03/07/24 08:28 68 03/07/24 07:28 36.6 C 69 19 130/74 95 03/07/24 06:08 66 137/78 03/07/24 02:47 36.5 C 65 20 118/67 95 O2 Del Method 03/07/24 13:59 Room Air 03/07/24 13:45 Room Air 03/07/24 13:30 Room Air 03/07/24 13:14 Room Air 03/07/24 13:00 Room Air 03/07/24 08:56 Room Air 03/07/24 08:28 03/07/24 07:28 Room Air 03/07/24 06:08 03/07/24 02:47 Room Air Critical Care Results & Data Vital Signs (Past 12 Hours) Vital Signs Temp Pulse Pulse Resp BP BP Pulse Ox 03/07/24 13:59 71 16 137/77 93 03/07/24 13:45 73 16 133/74 93 03/07/24 13:30 130/75 93 03/07/24 13:14 71 16 105/63 96 03/07/24 13:00 72 16 113/66 95 03/07/24 08:56 03/07/24 08:28 68 03/07/24 07:28 36.6 C 69 19 130/74 95 03/07/24 06:08 66 137/78 03/07/24 02:47 36.5 C 65 20 118/67 95 O2 Del Method 03/07/24 13:59 Room Air 03/07/24 13:45 Room Air 03/07/24 13:30 Room Air 03/07/24 13:14 Room Air 03/07/24 13:00 Room Air 03/07/24 08:56 Room Air 03/07/24 08:28 03/07/24 07:28 Room Air 03/07/24 06:08 03/07/24 02:47 Room Air Lab & Micro Results (Past 24 Hours) RBC 4.02 M/uL (4.20-5.40) L 03/07/24 WBC 7.25 K/ul (4.8-10.8) 03/07/24 Hgb 12.0 g/dl (12.0-16.0) 03/07/24 Hct 35.1 % (37.0-47.0) L 03/07/24 MCV 87.3 fL (80.0-100.0) 03/07/24 MCH 29.9 pg (25.0-34.0) 03/07/24 MCHC 34.2 g/dL (32.0-36.0) 03/07/24 RDW Standard Deviation 41.1 fL (36.4-46.3) 03/07/24 RDW Coefficient of Variation 13.1 % (11.5-14.5) 03/07/24 Plt Count 148 K/uL (130-400) 03/07/24 MPV 9.6 fL (9.4-12.4) 03/07/24 Neutrophils (%) (Auto) 70.6 % 03/06/24 Lymphocytes (%) (Auto) 20.1 % 03/06/24 Monocytes # (Auto) 0.51 K/uL (0.11-0.59) 03/06/24 Eosinophils # (Auto) 0.16 K/uL (0.00-0.50) 03/06/24 Immature Granulocyte % (Auto) 0.5 % 03/06/24 Neutrophils # (Auto) 5.63 K/uL (1.40-6.50) 03/06/24 Lymphocytes # (Auto) 1.60 K/uL (1.20-3.40) 03/06/24 Monocytes # (Auto) 0.51 K/uL (0.11-0.59) 03/06/24 Eosinophils # (Auto) 0.16 K/uL (0.00-0.50) 03/06/24 Basophils # (Auto) 0.03 K/uL (0.00-0.20) 03/06/24 Immature Granulocyte # (Auto) 0.04 K/uL (0.01-0.20) 4 Na 137 mmol/L (136-145) 03/07/24 K 3.6 mmol/L (3.5-5.1) 03/07/24 Cl 106 mmol/L (98-107) 03/07/24 CO2 23 mmol/L (21-32) 03/07/24 Anion Gap 8 (3-11) 03/07/24 BUN 15 mg/dl (6-23) 03/07/24 Creatinine 0.76 mg/dl (0.6-1.2) 03/07/24 Estimated GFR ( Amer) 92.1 ml/min 03/07/24 Estimated GFR (Non-Af Amer) 79.5 ml/min 03/07/24 BUN/Creatinine Ratio 19.7 (10-20) 03/07/24 Glu 157 mg/dl (70-99(Fasting)) H 03/07/24 Ca 9.3 mg/dl (8.6-10.3) 03/07/24 Phosphorus Level 3.1 mg/dl (2.5-4.9) 03/07/24 Total Bilirubin 0.7 mg/dl (0.2-1.0) 03/06/24 AST 16 U/L (13-39) 03/06/24 ALT 10 U/L (7-52) 03/06/24 Alkaline Phosphatase 69 U/L (34-104) 03/06/24 TP 8.1 gm/dl (6.0-8.3) 03/06/24 Albumin 4.7 gm/dl (3.4-5.0) 03/06/24 Globulin 3.4 gm/dl (2.5-4.0) 03/06/24 Albumin/Globulin Ratio 1.4 (0.9-2) 03/06/24 Mg 1.6 mg/dl (1.7-2.4) L 03/07/24 01:14 Calcium Level 9.3 mg/dl (8.6-10.3) 03/07/24 01:14 Prothromb Time International Ratio 1.0 (0.9-1.1) 03/06/24 16:0 0 Diagnostic Findings (Past 24 Hours) Chest CTA 03/06/24 15:49 CT ANGIOGRAPHY OF THE CHEST DISSECTION PROTOCOL CLINICAL HISTORY: Chest pain. Evaluate for dissection. COMPARISON STUDY: Chest CT September 29, 2017 and chest radiograph performed earlier today. TECHNIQUE: Before and following the IV administration of Optiray, helical axial images of the chest were obtained. Maximal intensity projections and sagittal and coronal reformats were viewed on an independent 3D workstation. IV contrast was administered without complication. Automated exposure control was utilized for the study. A dose lowering technique was utilized adhering to the principles of ALARA. CT DOSE: 1046.64 mGy.cm FINDINGS: A left subclavian biventricular pacer/AICD is in place. The caliber of the thoracic aorta is normal. There is no intramural hematoma or thoracic aortic dissection. The heart is mildly enlarged. There is moderate coronary artery calcification. No pulmonary emboli are identified. Several mildly enlarged mediastinal lymph nodes are present. Subcarinal lymph node measures 1.9 x 1.2 cm. There is no pneumothorax or pleural effusion. An 8 mm low-attenuation right lower lobe nodule is unchanged since CT of September 29, 2017. This is benign given stability. No suspicious pulmonary nodules are present. Extensive groundglass opacities throughout the lungs with multifocal cystic change and reticulation have mildly progressed when compared to CT of September 29, 2017. There is no honeycombing. Old right-sided rib fractures are incidentally noted. IMPRESSION: 1. No thoracic aortic dissection. 2. No pulmonary emboli. 3. Extensive groundglass opacities throughout the lungs with multifocal cystic change and reticulation which have mildly progressed since CT of September 29, 2017. The findings could reflect an infectious process or pulmonary edema superimposed upon interstitial lung disease. Progression of interstitial lung disease could appear similar. 4. A few mildly enlarged mediastinal lymph nodes. These may be reactive. ACT 112: Negative or not required by law. Electronically signed by: Tejinder Archer M.D. 03/06/2024 5:37 PM Chest X-Ray 03/06/24 15:49 XR chest 1V portable CLINICAL HISTORY: Chest pain, nonspecific COMPARISON STUDY: Chest radiograph February 22, 2024. Chest CT September 29, 2017. FINDINGS: A left subclavian biventricular pacer/ICD is unchanged in position. Mild cardiomegaly is unchanged. Mediastinal contours are stable. There is no pneumothorax or pleural effusion. Interstitial thickening within the lungs is similar to prior exam. No superimposed consolidation. IMPRESSION: 1. No acute cardiopulmonary findings. 2. No significant change in interstitial thickening consistent with interstitial lung disease. No superimposed consolidation. ACT 112: Negative or not required by law. Electronically signed by: Tejinder Archer M.D. 03/06/2024 4:28 PM I & O Totals 24 Hours 03/06/24 03/07/24 03/08/24 06:59 06:59 06:59 Intake Total 100 / 100 Balance 100 / 100 Cumulative 03/06/24 15:42 thru 03/07/24 14:16 Intake Total 100 Balance 100 RT Ventilator Mngmt (Last Documented) Ventilator Ordered Settings Respiratory Rate 16 03/07/24 13:59 Ventilator - PT Measurements Respiratory Rate 16 PG Care Time/CCT Total # of Minutes Spent Total Time Spent with Patient: Total time spent is greater than 50% in coordination of care (as documented) at patient's floor/unit and/or counseling patient: Coding Level of Care Code 39040 INT INP/OBS CARE 3/75MIN Diagnoses Interstitial lung disease J84.9
[2024-03-07] MEDS: SODIUM CHLORIDE 0.9% 1,000 ML IV SCH (14:37)
[2024-03-07 15:16] LABS: C Reactive Protein < 0.50 mg/dl (0-0.5); Creatine Kinase 185 U/L (26-192)
--- NOTE | 2024-03-07 17:09 | XCELERA ---
[id number] [id number]
--- NOTE | 2024-03-07 21:29 | Electrocardiogram Report ---
Test Reason : Blood Pressure : */* mmHG Vent. Rate : 73 BPM Atrial Rate : 73 BPM P-R Int : 290 ms QRS Dur : 148 ms QT Int : 494 ms P-R-T Axes : 62 -50 196 degrees QTcB Int : 544 ms Sinus rhythm with 1st degree A-V block Left axis deviation Left bundle branch block Abnormal ECG When compared with ECG of 07-Mar-2024 02:30, No significant change was found Confirmed by Gianni Pepper ([id number]) on 03/07/2024 9:29:27 PM Referred By: REFERRED SELF Confirmed By: Gianni Pepper
--- NOTE | 2024-03-07 21:29 | Electrocardiogram Report ---
Test Reason : Blood Pressure : */* mmHG Vent. Rate : 91 BPM Atrial Rate : 91 BPM P-R Int : 236 ms QRS Dur : 146 ms QT Int : 424 ms P-R-T Axes : 56 -46 167 degrees QTcB Int : 521 ms Sinus rhythm with 1st degree A-V block Left axis deviation Left bundle branch block Abnormal ECG When compared with ECG of 06-Mar-2024 15:51, Ventricular pacing is no longer present Confirmed by Gianni Pepper ([id number] on 03/07/2024 9:28:48 PM Referred By: REFERRED SELF Confirmed By: Gianni Pepper
[2024-03-08 05:34] LABS: Calcium 8.8 mg/dl (8.6-10.3); Magnesium 1.6 mg/dl (1.7-2.4); Potassium 3.7 mmol/L (3.5-5.1)
[2024-03-08 05:40] LABS: BUN Creatinine Ratio 17.6 (10-20); Creatinine Clr Calc Pharmacy 45.5 ml/min; Est GFR (African American) 74.1 ml/min; Est GFR (Non-African American) 63.9 ml/min; Phosphorus 3.1 mg/dl (2.5-4.9)
[2024-03-08 06:33] LABS: Hematocrit (blood only) 30.5 % (37.0-47.0); Hemoglobin 10.5 g/dl (12.0-16.0); Mean Corpuscular Hemoglobin 29.8 pg (25.0-34.0); Mean Corpuscular Hgb Conc 34.4 g/dL (32.0-36.0); Mean Corpuscular Volume 86.6 fL (80.0-100.0); Mean Platelet Volume 10.2 fL (9.4-12.4); Platelet Count 148 K/uL (130-400); RDW Standard Deviation 40.3 fL (36.4-46.3); Red Blood Count 3.52 M/uL (4.20-5.40); White Blood Count 6.32 K/ul (4.8-10.8)
[2024-03-08 07:30] VITALS: RESP 19
[2024-03-08] MEDS: MAGNESIUM SULFATE / D5W 1 GM/100 ML BAG IV ONE (07:50)
[2024-03-08] MEDS: CLOPIDOGREL BISULFATE 75 MG TAB PO SCH (09:21)
--- NOTE | 2024-03-08 15:00 | Discharge Summary ---
Date of Service March 08, 2024 Admission HPI Per Admitting Provider Codi Painter is a 68y/o F with PMHx of dyslipidemia, CAD s/p LAD and RCA stent placement, hypothyroidism, DM type II, complete AV block s/p biventricular ICD pacemaker placement, transient atrial fibrillation, HTN, paroxysmal ventricular tachycardia, ischemic cardiomyopathy, rheumatic heart disease, CKD stage III, mild dementia, alcohol use disorder, bilateral hearing loss, osteoporosis, urge incontinence and other problems listed below who presented to the ED for evaluation secondary to chest pain. History obtained from patient and associated chart review. Patient previously admitted to [facility] on 02/22/24 with chest pain. She underwent cardiac catheterization on 02/22. No new stents were placed at that time. Her prior stents were patent but with moderate in-stent restenosis. Echo on 02/21 showed the following: mild to moderately reduced LV systolic fx, LVEF=40-45%, septal motion consistent with conduction abnormality, moderate global kinesis of the LV, moderate concentric LV hypertrophy and elevated RV systolic pressure of 30-40mmHg. Her Coreg was increased to 6.25mg BID. Also noted to have a Hgb A1c of 6.5% at that time. She was discharged home on 02/23. Chest pain started at rest this morning around 9AM. Describes it as more of a central chest pressure sensation. Pain radiates down both of her arms. She had nitroglycerin x 3 [employer] w/o any relief. Reports some improvement in her pain after administration of IV fentanyl and morphine in the ED. No fevers, recent sick contacts. Cough at baseline. Did have an episode of vomiting on her way to the ED. Smokes 1ppd. Infrequent alcohol use. No recreational drug use. Admission Exam Per Admitting Provider GENERAL: Alert and oriented x3. NAD, on RA. HEENT: No pallor, no icterus. Pupils equal, round and reactive to light. Oral mucosa moist. NECK: No JVD, no neck masses. HEART: S1 and S2 heard. Regular rate and rhythm. Tachycardia, + murmur, no gallop. RESPIRATORY SYSTEM: Normal AP diameter. No accessory muscle use. No wheezing, occ bl crackles. ABDOMEN: Soft, bowel sounds present, nontender, no distention. CENTRAL NERVOUS SYSTEM: No facial droop. Speech is clear. Obeys simple commands. Moves extremities. EXTREMITIES: No edema, no erythema seen. Principal Diagnosis Chest pain Non ST elevated Myocardial infarction Status post cardiac stent Ischemic cardiomyopathy Interstitial Lung disease Discharge Exam Constitutional + well hydrated; no acute distress Eyes PERRL, conjunctivae normal, anicteric sclerae ENMT external ear and nose normal, oropharynx normal +hearing deficits Respiratory normal respiratory effort, lungs clear to auscultation Cardiovascular Rate/Rhythm: regular rate and regular rhythm Gastrointestinal (Abdomen) normal bowel sounds, soft, nontender, no hepatosplenomegaly Musculoskeletal No pedal edema Clean dressing over right wrist access point Neurologic PERRL, EOMI, accommodation nl, no face palsy, no dysarthria Psychiatric A+Ox3, euthymic affect Discharge Data Allergies Allergy/AdvReac Type Severity Reaction Status Date / Time latex Allergy Intermediate HIVES Verified 03/06/24 17:00 adhesive Allergy Mild SKIN Verified 03/06/24 17:00 IRRITATION penicillin V Allergy Unknown CAN'T Verified 03/06/24 17:00 REMEMBER aspirin AdvReac Mild STOMACH Verified 03/06/24 17:00 UPSET Consultations 03/06/24 18:25 ED Decision to Admit Stat 03/06/24 18:56 Consult Cardiology Routine 03/06/24 19:14 Consult Pulmonology Routine Procedures Performed Operation Date: 03/07/24 11:00 Actual Procedures s Cineradiography w/Routine Exam - Burt Gentile MD p Drug Eluting Stent SGl Vessel - Burt Gentile MD s IVUS Coronary Single Vessel - Burt Gentile MD s IVUS Coronary each ADDL Vessel - Burt Gentile MD p Cath, Left with Cors and Vent - Burt Gentile MD Ordered Studies 03/06/24 15:49 CTA chest dissec wo/w con [CT angio chest dissec wo/w con] Stat 03/07/24 10:57 CL Cath Imgs for PACS use only Routine 03/07/24 13:18 CL IVUS Coronary Single Vessel Routine Hospital Course (1) Chest pain: (2) Elevated troponin: Plan 68y/o F with PMHx of dyslipidemia, CAD s/p LAD and RCA stent placement, hypothyroidism, DM type II, complete AV block s/p biventricular ICD pacemaker placement, transient atrial fibrillation, HTN, paroxysmal ventricular tachycardia, ischemic cardiomyopathy, rheumatic heart disease, CKD stage III, mild dementia, alcohol use disorder, bilateral hearing loss, osteoporosis, urge incontinence who presented to the ED with chest pain. Patient previously admitted to [facility] on 02/22/24 with chest pain. She underwent cardiac catheterization on 02/22. No new stents were placed at that time. Her prior stents were patent but with moderate in-stent restenosis. Echo on 02/21 showed the following: mild to moderately reduced LV systolic fx, LVEF=40-45%, septal motion consistent with conduction abnormality, moderate global kinesis of the LV, moderate concentric LV hypertrophy and elevated RV systolic pressure of 30-40mmHg. Her Coreg was increased to 6.25mg BID. Also noted to have a Hgb A1c of 6.5% at that time. She was discharged home on 02/23. Chest Pain NSTEMI History of Coronary Artery Disease s/p stents Presenting EKG showed prolonged AV conduction w/ occasional PVCs. Repeat EKG w/ 1st degree AV block, LAD, LBBB. Trop trended from 40.4 on admission to 3251 Patient had plavix loading Had cardiac catheterization on 03/07/24 which showed multivessel CAD - 70% proximal to mid LAD instent restenosis, 60-70% mid circumflex, 60-70% mid LAD instent restenosis, 100% ramus chronic total occlusion Had successful angioplasty of proximal to mid LAD instent restenosis and stenting of proximal LAD overlapping proximal edge of prior stents TTE showed EF 30-35%, akinetic apex, hypokinesis of mild LV segments, mild to mod conc LVH. Septal motion consistent with conduction abnormality. Normal RV size with mildly reduced systolic function. Moderate LA dilation, mild MR, Normal est RV systolic pressure Patient is chest pain free Cardiology recommends continuing DAPT Discharged on ASA 81mg and plavix 75mg Continue atorvastatin, carvedilol, imdur Uncontrolled Hypertension: BP 200/104 on arrival, SBP in the 160s when patient seen in ED. BP is currently controlled and normal Continue carvedilol, HCTZ, imdur Interstitial Lung Disease: Chest CTA remarkable for extensive groundglass opacities throughout the lungs with multifocal cystic change and reticulation. Appears to be a new diagnosis. Patient reports chronic cough producing whitish/cloudy sputum and SOB with activity. Pulm evaluated and sent some serological tests (GROVER, ANCA, GUILLE, RF, Anti CCP) which are still pending Patient needs to follow up with Pulmonology outpatient for further evaluation DM Type II: Continue home metformin Hgb A1c 6.5% from previous admission on 02/22/24 CKD Stage III: Cr stable at 0.91 today, baseline Cr ~1. Total Time Total Time Spent Total Time Spent (In Minutes): 35 Total Time Includes: Examination of the Patient, Discharge Planning, Medication Reconciliation and Communication With Other Providers Discharge Plan Discharge Items Patient Disposition: Home - Self-Care Reason For Visit: CHEST PAIN Discharge Diagnosis: Chest pain Non ST elevated Myocardial infarction Status post cardiac stent Ischemic cardiomyopathy Interstitial Lung disease Activity: Resume your previous activity Non-emergency contact: Primary Care Provider and Licensed Psychologist Director Call non-emergency contact if: you have any medication questions and your symptoms worsen Follow-up/Referrals: Kain Burgos MD [Physician] - () Luzma Yu MD [Primary Care Provider] - (Date & Time 03/11/2024 11:40 AM Provider Ly Mead MD [facility] ) Diet: Carb Consistent or DM2, Heart Healthy and Low Sodium (2gm) Addtl Attending Provider Instructions: Mrs Painter You came to the hospital complaining of chest pain. You were evaluated and found to have a heart attack. You had cardiac catheterization and had a stent put in. Please continue taking your aspirin. You were also started on plavix which you will continue for atleast 6 months. Please continue all your other medications. It is very important that you follow up with Bridge Mechanic (Lung Doctor) in the office for further evaluation of possible Interstitial Lung Disease seen on your scans. Please ensure follow up with your Primary Doctor. It was a pleasure taking care of you Pending Studies at Discharge: No Stand-Alone Forms: [facility], Smoking Cessation Medications and DC Order Prescriptions: New clopidogrel 75 mg Tablet 75 mg PO QAM 30 Days Qty: 30 0RF Continued nitroglycerin [Nitrostat] 0.4 mg Tablet, Sublingual 0.4 mg Sublingual DIRECTED PRN (Reason: Chest Pain) Rx Instructions: PLACE ONE TABLET UNDER THE TONGUE EVERY 5 MINUTES FOR UP TO 3 DOSES OVER 15 MINUTES IF NEEDED FOR CHEST PAIN. solifenacin [Vesicare] 5 mg tablet 10 mg PO QAM atorvastatin 80 mg tablet 80 mg PO HS acetaminophen [Tylenol Extra Strength] 500 mg Tablet 1,000 mg PO AMHS magnesium oxide 400 mg magnesium capsule 400 mg PO QAM aspirin 81 mg Tablet,Delayed Release (Dr/Ec) 81 mg PO QAM tramadol 50 mg tablet 50 mg PO UD PRN (Reason: Pain) hydrochlorothiazide 12.5 mg tablet 12.5 mg PO QAM carvedilol 6.25 mg Tablet 6.25 mg PO BIDM Qty: 60 0RF alendronate 70 mg tablet 70 mg PO .QWEEKLY isosorbide mononitrate 120 mg tablet extended release 24 hr 120 mg PO DAILY gabapentin 100 mg capsule 100 mg PO HS metformin 500 mg tablet extended release 24 hr 500 mg PO DAILY Discharge Orders: Discharge Order (Routine); Ordered 03/08/24 Ordered By: Jo Greer Admission Data Admit Date/Time: 03/06/24 18:56 Attending Provider: Jo Greer I. Admit Provider: Demi Matos Primary Care Provider: Luzma Yu Other Providers: Burt Vega; Araceli Simons; Demi Matos
[2024-03-08 15:18] VITALS: TEMP 97.5; O2SAT 94
--- NOTE | 2024-03-08 15:44 | Cardiology Progress Note ---
Date of Service March 08, 2024 Assessment & Plan (1) Non-ST elevation SD (NSTEMI): (2) Coronary artery disease: (3) S/P coronary artery stent placement: (4) Ischemic cardiomyopathy: (5) Dyslipidemia: (6) LBBB (left bundle branch block): Plan ASSESSMENT/PLAN: 1. NSTEMI: She underwent percutaneous intervention to the LAD yesterday. No evident complication. Resolution of her symptoms. She will need to continue dual antiplatelet therapy for at least 1 year, possibly indefinitely. 2. CAD s/p LAD and RCA PCI: History of LAD and RCA stents. PCI to the LAD again yesterday. Continue beta-jus, dual antiplatelet therapy and high intensity statin therapy. 3. Ischemic cardiomyopathy: History of reduced LV systolic function which had later normalized. LV systolic function once again reduced. She appears to have a midrange ejection fraction. She would likely benefit from an SGLT2 inhibitor which can be addressed in the outpatient setting 4. Dyslipidemia: Continue high intensity statin therapy. 5. ICD: Followed by her primary plate inspector/paint supervisor, Dr. Dailey. 6. Left bundle branch block: Chronic. Admission and Anticipated Discharge Date Admission Date: March 06, 2024 Subjective This afternoon the patient claimed to be feeling well. She was anxious for discharge. Will discomfort at the radial access site. She has been ambulatory without recurrent symptoms of chest pain. No chest pain at rest. Review of Systems Review of Systems: Per HPI Physical Exam Physical Exam: Gen.: No acute distress. Alert. She has her questions appropriately. HEENT: Anicteric sclera. Neck: No JVD. No bruits. Normal carotid upstrokes bilaterally. Cardiac: Regular. Normal S1-S2. No murmurs, rubs, or gallops. Pulmonary: Clear to auscultation bilaterally without wheezes, rales, or rhonchi. Extremities: She has a hematoma at the right radial access site. There is ecchymosis. However, there is a palpable radial pulse and good perfusion of the right hand. Psychiatric: Affect appears appropriate. Results & Data Vital Signs (Past 12 Hours) Vital Signs Temp Pulse Pulse Pulse Resp BP BP 03/08/24 15:18 36.4 C L 77 19 124/74 03/08/24 14:58 36.9 C 75 72 19 105/61 130/74 03/08/24 14:20 77 03/08/24 10:59 36.9 C 72 19 105/61 03/08/24 07:45 03/08/24 07:36 68 03/08/24 07:29 36.7 C 71 19 123/64 Pulse Ox O2 Del Method 03/08/24 15:18 94 Room Air 03/08/24 14:58 96 03/08/24 14:20 03/08/24 10:59 96 Room Air 03/08/24 07:45 Room Air 03/08/24 07:36 03/08/24 07:29 94 Room Air Laboratory Results Abnormal Lab Results 03/07/24 03/07/24 03/08/24 16:37 20:35 04:59 WBC Cancelled RBC Cancelled Hgb Cancelled Hct Cancelled MCV Cancelled MCH Cancelled MCHC Cancelled RDW Std Deviation Cancelled RDW Coeff of Chucky Cancelled Plt Count Cancelled MPV Cancelled Absolute Nucleated RBC Cancelled Nucleated RBC % (auto) Cancelled Platelet Estimate Cancelled Sodium 133 L Potassium 3.7 Chloride 102 Carbon Dioxide 24 Anion Gap 7 BUN 16 Creatinine 0.91 Est Cr Clr Drug Dosing 45.5 Est GFR ( Amer) 74.1 Est GFR (Non-Af Amer) 63.9 BUN/Creatinine Ratio 17.6 Glucose 117 H POC Glucose 131 H 143 H Calcium 8.8 Phosphorus 3.1 Magnesium 1.6 L 03/08/24 03/08/24 03/08/24 05:27 07:28 12:13 WBC 6.32 RBC 3.52 L Hgb 10.5 L Hct 30.5 L MCV 86.6 MCH 29.8 MCHC 34.4 RDW Std Deviation 40.3 RDW Coeff of Chucky 13.0 Plt Count 148 MPV 10.2 Absolute Nucleated RBC Nucleated RBC % (auto) Platelet Estimate Sodium Potassium Chloride Carbon Dioxide Anion Gap BUN Creatinine Est Cr Clr Drug Dosing Est GFR ( Amer) Est GFR (Non-Af Amer) BUN/Creatinine Ratio Glucose POC Glucose 118 H 127 H Calcium Phosphorus Magnesium PG Care Time/CCT Total # of Minutes Spent Total Time Spent with Patient: Total time spent is greater than 50% in coordination of care (as documented) at patient's floor/unit and/or counseling patient: Coding Level of Care Code 85436 SUB INP/OBS CARE 2/35MIN Diagnoses Non-ST elevation SD (NSTEMI) I21.4 Coronary artery disease I25.10 S/P coronary artery stent placement Z95.5 Ischemic cardiomyopathy I25.5 Dyslipidemia E78.5 LBBB (left bundle branch block) I44.7
[2024-03-08 15:45] VITALS: BP 130/74; PULSE 75
--- NOTE | 2024-03-08 16:07 | Electrocardiogram Report ---
Test Reason : Blood Pressure : */* mmHG Vent. Rate : 66 BPM Atrial Rate : 66 BPM P-R Int : 278 ms QRS Dur : 148 ms QT Int : 548 ms P-R-T Axes : 21 -52 209 degrees QTcB Int : 574 ms Sinus rhythm with marked sinus arrhythmia with 1st degree A-V block Left axis deviation Left bundle branch block T wave changes concering for ischemia vs evolving NE Abnormal ECG When compared with ECG of 07-Mar-2024 06:30, No significant change was found Confirmed by Burt Vega ([id number]) on 03/08/2024 4:06:57 PM Referred By: REFERRED SELF Confirmed By: Burt Vega
== END 2024-03-08 15:45 | disposition home or self-care (01) | DRG 322 ==
LOC: ED 15:42 → SUATTDRO 18:56 → 4W 18:56

== ENCOUNTER 2024-05-24 16:15 | Inpatient (IN) ==
--- NOTE | 2024-05-24 16:39 | Emergency Department Note ---
Impression & Plan Diarrhea, Pneumonia, Hypoxia, Acute hyponatremia ED Provider Note HISTORY OF PRESENT ILLNESS: Patient is a 68-year-old female presenting with persistent diarrhea. Patient reports that she has had uncontrollable diarrhea for the last few weeks. Estimates that around 6 to 8 weeks. States that "I just cannot do it anymore." states that she seems very weak and unable to get up out of bed. He also reports she seems more short of breath than normal. Patient is complaining of lower abdominal pain. She reports an abdominal surgical history significant for cholecystectomy. She denies any recent antibiotic use. Denies any chest pain. She does feel slightly short of breath and very weak and rundown. Denies any nausea. reports subjective fevers at home, stating the patient was very sweaty yesterday but they do not have a thermometer to take her temperature. Denies any dysuria or hematuria. ROS: as above PHYSICAL EXAM: Constitutional: Patient appears in no acute distress. HENT: Head: Normocephalic and atraumatic. Eyes: EOMI, PERRL Mouth/Throat: Mucous membranes moist. Neck: Trachea midline. Neck supple. Cardiovascular: Paced rhythm. No murmurs, rubs or gallops. Intact distal pulses. Pulmonary/Chest: No respiratory distress. Breath sounds clear and equal bilaterally. No wheezes or rales. Abdominal: Abdomen soft, no rebound or guarding. Diffuse TTP Musculoskeletal: No edema, tenderness or deformity noted. Skin: Warm and dry. No rash, erythema, pallor or cyanosis Psychiatric: Appropriate mood and affect for situation. Neurological: Alert and keenly responsive. CN II-XII grossly intact, moving all extremities equally and fully. MDM: - Vitals signs stable. - History obtained via patient and patient's . History as above. - Chronic conditions affecting care: ischemic cardiomyopathy; CAD (s/p LAD and RCA PCIs); DM-2; HLD; complete heart block (s/p biventricular ICD pacemaker); HTN - Differential diagnoses include, but are not limited to: electrolyte abnormality; small bowel obstruction; appendicitis; viral syndrome; C diff - Order placed for continuous cardiac monitoring. At this time, monitor showed rate of 89 bpm with paced rhythm, per my interpretation. - External medical records reviewed. Discharge summary dated 03/08/2024 was reviewed. Patient was admitted that time for NSTEMI and had a stent placed. - EKG interpreted by myself showed normal paced rhythm. Rate 86 bpm. QT 418. No acute ischemic changes. - Laboratory workup interpreted by myself showed leukocytosis (WBC 11.17); normal PT/INR; hyponatremia (Na 130); elevated total bilirubin (1.9); slightly elevated troponin (14.1); normal TSH - Viral respiratory panel negative - CXR shows right lower lobe pneumonia, per my interpretation. - Patient desaturated to 88 to 89% on room air and was placed on supplemental oxygen. - CT abdomen/pelvis with IV contrast [] - Given patient's pneumonia, hyponatremia and diarrhea, Legionella antigen was added to patient's workup. - IV rocephin + 500 mg PO azithromycin ordered for pneumonia coverage. - Discussion was had with clinical case manager about patient's case and need for admission - Hospitalist consulted for admission - [facility] ASSESSMENT AND PLAN: Diagnosis: diarrhea; pneumonia; hypoxia; acute hyponatremia Plan: admit Past Med/Surg History Problem List (Updated 05/24/24 @ 18:47 by Antonella Hicks MD) Acute hyponatremia (Acute) Hypoxia (Acute) Pneumonia (Acute) Diarrhea (Acute) Interstitial lung disease S/P coronary artery stent placement Non-ST elevation MD (NSTEMI) (Acute) Chest pain (Acute) LBBB (left bundle branch block) Chest pain (Acute) Generalized weakness (Acute) Dyslipidemia Parainfluenza (Acute) Pneumonia (Acute) RAD (reactive airway disease) (Acute) UGIB (upper gastrointestinal bleed) SOB (shortness of breath) HBP (high blood pressure) GERD (gastroesophageal reflux disease) Osteoporosis AF (paroxysmal atrial fibrillation) Depression Diabetes mellitus, type 2 Fracture of L1 vertebra (Acute) Fall (Acute) Mixed hearing loss, bilateral Coronary artery disease Fatigue ICD (implantable cardioverter-defibrillator), biventricular, in situ Encounter for pre-operative examination Encounter for pre-operative examination Esophageal dysphagia Left knee pain (Acute) Left knee pain (Acute) Unstable angina Syncope (Acute) DVT prophylaxis Acute cystitis Ischemic cardiomyopathy Hypothyroidism PT DENIES. Medical History (Updated 05/24/24 @ 18:47 by Antonella Hicks MD) Elevated troponin S/P right coronary artery (RCA) stent placement (2015) History of placement of stent in LAD coronary artery (2008) History of placement of stent in LAD coronary artery (2019) Hypomagnesemia Acute hypokalemia Non-ST elevation MD (NSTEMI) Pneumonia Acid reflux disease with ulcer Alcohol abuse, unspecified Anxiety state, unspecified Anxiety disorder Atrial fibrillation Coronary artery disease Cardiac arrest Cardiomyopathy Congestive heart failure, unspecified Congestive cardiomyopathy Cor athrscl-uns vessel Depressive disorder, not elsewhere classified Dysphagia, oropharyngeal phase Fecal incontinence Goiter Celia's thyroiditis Other and unspecified hyperlipidemia Ocular hypertension, unspecified eye Lumbago Lumbar compression fracture Old myocardial infarct Postmenopausal atrophic vaginitis Subclinical hypothyroidism Type 2 diabetes mellitus Unknown whether patient has any health problems Urinary tract infection FREQUENT Cancer SKIN CANCER Hypertension Anxiety GERD (gastroesophageal reflux disease) HLD (hyperlipidemia) CAD (coronary artery disease) Surgical History (Updated 03/26/24 @ 00:09 by Srinivas Paz) History of appendectomy History of cardiac cath 1 STENT (2015 @ [facility]) History of esophagogastroduodenoscopy (EGD) History of colonoscopy History of tonsillectomy S/P placement of cardiac pacemaker ~15-20 YEARS AGO[address] FOLLOWS WITH [address] RUBI AND LAST CHECKED 4 MONTHS AGO History of cholecystectomy Family History Mother Family history of diabetes mellitus Blind Hearing loss Hypertension Allergies Asthma Sister Family history of diabetes mellitus Coronary heart disease Father No problems noted. Denies family history of No family history of adverse response to anesthesia No family history of bleeding disorder Heart disease Cancer Stroke Social History Smoking Status: Never smoker Tobacco Type: Cigarettes Second Hand Exposure: No; Do You Dip or Chew Tobacco: No; Hx Alcohol Use: Yes Alcohol type: beer and hard liquor Alcohol Intake Frequency: 2-3 x/Week Hx Substance Use: No Preferred Language: Bulgarian Communication Ability: Effective [employer] Head Required: No Beliefs That Will Affect Care: None marital status: Current Living Situation: Spouse How many Children do You have: 1 Feels Safe at Home: Yes Assistive Devices: None Allergies Allergies Allergy/AdvReac Type Severity Reaction Status Date / Time latex Allergy Intermediate HIVES Verified 05/20/24 10:09 adhesive Allergy Mild SKIN Verified 05/20/24 10:09 IRRITATION penicillin V Allergy Unknown CAN'T Verified 05/20/24 10:09 REMEMBER aspirin AdvReac Mild STOMACH Verified 05/20/24 10:09 UPSET Home Meds Home Medications Medication Instructions Recorded Confirmed nitroglycerin 0.4 mg sublingual 0.4 mg sublingual DIRECTED PRN 06/16/18 05/20/24 tablet (Nitrostat) Chest Pain atorvastatin 80 mg tablet 80 mg PO HS 03/12/21 05/20/24 solifenacin 5 mg tablet (Vesicare) 10 mg PO QAM 03/12/21 05/20/24 acetaminophen 500 mg tablet 1,000 mg PO AMHS 02/15/23 05/20/24 (Tylenol Extra Strength) aspirin 81 mg tablet,delayed 81 mg PO QAM 04/28/23 05/20/24 release magnesium oxide 400 mg PO QAM 04/28/23 05/20/24 hydrochlorothiazide 12.5 mg tablet 12.5 mg PO QAM 02/22/24 05/20/24 tramadol 50 mg tablet 50 mg PO UD PRN Pain 02/22/24 05/20/24 alendronate 70 mg tablet 70 mg PO .QWEEKLY 03/06/24 05/20/24 gabapentin 100 mg capsule 100 mg PO HS 03/06/24 05/20/24 isosorbide mononitrate 120 mg 120 mg PO DAILY 03/06/24 05/20/24 tablet,extended release 24 hr metformin 500 mg tablet,extended 500 mg PO DAILY 03/06/24 05/20/24 release 24 hr levothyroxine 50 mcg capsule 50 mcg PO DAILY 03/28/24 05/20/24 Previous Rx's Medication Instructions Recorded sacubitril 49 mg-valsartan 51 mg 1 tab PO BID #60 tabs 04/12/24 tablet (Entresto) carvedilol 12.5 mg tablet 12.5 mg PO BIDM #60 tabs 05/05/24 Results & Data (ED) Vital Signs Vital Signs - 24 hr 05/24/24 16:21 05/24/24 16:32 05/24/24 16:57 Temperature 36.8 C Temperature Source Temporal Artery Scan Pulse Rate 90 89 Pulse Rate [Right Finger] Respiratory Rate 14 Respiratory Effort / Characteristics Non-Labored Respiratory Depth Normal Respiratory Pattern Blood Pressure 117/67 Blood Pressure [Right Arm] Blood Pressure Mean 83 Blood Pressure Mean [Right Arm] Pulse Oximetry 98 89 L Oxygen Delivery Method Room Air Room Air Nasal Cannula Oxygen Flow Rate 0 Sepsis Recent Fever Within 48 Hours No Sepsis New/Unexplained Change in Mental Status N/A Sepsis Action Taken by Nursing No Action Required Oxygen Flow Rate - Titration 2 Pulse Oximetry Post Tiitration 99 05/24/24 17:11 05/24/24 18:24 Temperature Temperature Source Pulse Rate Pulse Rate [Right Finger] 88 Respiratory Rate 16 Respiratory Effort / Characteristics Non-Labored Spontaneous Respiratory Depth Normal Respiratory Pattern Regular Blood Pressure Blood Pressure [Right Arm] 118/64 Blood Pressure Mean Blood Pressure Mean [Right Arm] 82 Pulse Oximetry 94 Oxygen Delivery Method Room Air Nasal Cannula Oxygen Flow Rate 2 Sepsis Recent Fever Within 48 Hours Sepsis New/Unexplained Change in Mental Status Sepsis Action Taken by Nursing Oxygen Flow Rate - Titration Pulse Oximetry Post Tiitration Laboratory Data 05/24/24 16:40 05/24/24 16:40 Lab Results 05/24/24 05/24/24 Range/Units 16:40 Unknown WBC 11.17 H (4.8-10.8) K/ul RBC 3.65 L (4.20-5.40) M/uL Hgb 11.0 L (12.0-16.0) g/dl Hct 31.7 L (37.0-47.0) % MCV 86.8 (80.0-100.0) fL MCH 30.1 (25.0-34.0) pg MCHC 34.7 (32.0-36.0) g/dL RDW Std Deviation 40.6 (36.4-46.3) fL RDW Coeff of [place] 12.7 (11.5-14.5) % Plt Count 160 (130-400) K/uL MPV 10.2 (9.4-12.4) fL Immature Gran % (Auto) 1.0 % Neut % (Auto) 89.7 % Lymph % (Auto) 4.9 % [place] % (Auto) 4.3 % Eos % (Auto) 0.0 % Baso % (Auto) 0.1 % Neut # (Auto) 10.02 H (1.40-6.50) K/uL Lymph # (Auto) 0.55 L (1.20-3.40) K/uL [place] # (Auto) 0.48 (0.11-0.59) K/uL Eos # (Auto) 0.00 (0.00-0.50) K/uL Baso # (Auto) 0.01 (0.00-0.20) K/uL Immature Gran # (Auto) 0.11 (0.01-0.20) K/uL PT 11.5 (9.0-12.0) Seconds INR 1.1 (0.9-1.1) Sodium 130 L (136-145) mmol/L Potassium 4.8 (3.5-5.1) mmol/L Chloride 96 L (98-107) mmol/L Carbon Dioxide 25 (21-32) mmol/L Anion Gap 9 (3-11) BUN 24 H (6-23) mg/dl Creatinine 1.00 (0.6-1.2) mg/dl Est Cr Clr Drug Dosing Not Reportable eGFR 60.61 BUN/Creatinine Ratio 24.0 H (10-20) Glucose 146 H (70-99(Fasting)) mg/dl Lactate 1.5 (0.4-2.0) mmol/L Calcium 9.4 (8.6-10.3) mg/dl Magnesium 2.1 (1.7-2.4) mg/dl Total Bilirubin 1.9 H (0.2-1.0) mg/dl AST 24 (13-39) U/L ALT 18 (7-52) U/L Alkaline Phosphatase 140 H (34-104) U/L Troponin I High Sens 14.1 H (0-14) pg/ml Total Protein 7.9 (6.0-8.3) gm/dl Albumin 3.7 (3.4-5.0) gm/dl Globulin 4.2 H (2.5-4.0) gm/dl Albumin/Globulin Ratio 0.9 (0.9-2) TSH 0.339 (0.300-4.500) uIu/ml Adenovirus (PCR) Not Detected (NotDetected) B. pertussis DNA (PCR) Not Detected (NotDetected) B.parapertussis DNA PCR Not Detected (NotDetected) C. pneumoniae DNA (PCR) Not Detected (NotDetected) Coronavirus OC43 (PCR) Not Detected (NotDetected) Coronavirus HKU1 (PCR) Not Detected (NotDetected) Coronavirus 229E (PCR) Not Detected (NotDetected) SARS-CoV-2 (PCR) Not Detected (NotDetected) Coronavirus NL63 (PCR) Not Detected (NotDetected) Human Metapneumovir PCR Not Detected (NotDetected) Influenza Type A (PCR) Not Detected (NotDetected) Influenza Type B (PCR) Not Detected (NotDetected) M. pneumoniae (PCR) Not Detected (NotDetected) Parainfluenza 1 (PCR) Not Detected (NotDetected) Parainfluenza 2 (PCR) Not Detected (NotDetected) Parainfluenza 3 (PCR) Not Detected (NotDetected) Parainfluenza 4 (PCR) Not Detected (NotDetected) RSV (PCR) Not Detected (NotDetected) Entero/Rhino (PCR) Not Detected (NotDetected) Administered Medications Discontinued Medications Azithromycin (Azithromycin 250 Mg Tab) 500 mg PO NOW ONE Stop: 05/24/24 18:09 Last Admin: 05/24/24 18:19 Dose: 500 mg Documented By: ELMER Ceftriaxone Sodium (Rocephin) 1,000 mg in 50 mls @ 100 mls/hr IV NOW STA Stop: 05/24/24 18:37 Last Admin: 05/24/24 18:20 Dose: 100 mls/hr Documented By: ELMER Ioversol (Optiray 320 100ml) 89 ml IV ONCE ONE Stop: 05/24/24 17:53 Last Admin: 05/24/24 17:53 Dose: 89 ml Documented By: TRAVIS Imaging Data Radiologist's Impression: Chest X-Ray 05/24/24 16:25 EXAM: Radiograph of the Chest 1 View INDICATION: Weakness. TECHNIQUE: Frontal view of the chest. COMPARISON: 04/14/2024 FINDINGS: Lungs and pleural spaces: Groundglass infiltrates superimposed on fibrotic changes most notable in the right base. No pleural effusion or pneumothorax. Heart: Shape and configuration within normal limits allowing for technique. Mediastinum: Normal contour. Bones/joints: No fracture, erosion or dislocation. Soft tissues: No abnormality noted. No radiopaque foreign body noted. Tubes, lines and devices: Stable cardiac defibrillator device. Stable cardiac shape and configuration. Upper abdomen: No abnormality noted. IMPRESSION: Groundglass opacities superimposed on fibrosis could reflect pneumonia including viral etiologies, bronchitis or pulmonary edema. ACT 112: Negative or not required by law. Electronically signed by Gerald Jeannette 05-24-2024 5:34 PM Abdomen/Pelvis CT 05/24/24 16:37 EXAM: CT Abdomen and Pelvis With Intravenous Contrast INDICATION: Bilateral lower abdominal pain. TECHNIQUE: Axial computed tomography images of the abdomen and pelvis with intravenous contrast. Sagittal and coronal reformatted images were created and reviewed. This CT exam was performed using one or more of the following dose reduction techniques: automated exposure control, adjustment of the mA and/or kV according to patient size, and/or use of iterative reconstruction technique. CONTRAST: 89ml of Optiray 320 was administered intravenously. COMPARISON: 11/30/2018 FINDINGS: Limitations: None. Lung bases: No abnormality noted. Pleural space: Visualized airways are diffusely thickened. There is a masslike infiltrate in the right lung base measuring at least 5.8 x 5.3 cm and not measured along its entire longitudinal extent. There is trace adjacent pleural fluid. Heart: Cardiomegaly noted. Cardiac pacing device noted. Metallic artifact limits assessment of lead integrity. Mediastinum: No abnormality noted. ABDOMEN: Liver: No abnormality noted. Gallbladder and bile ducts: Cholecystectomy. No ductal dilation or stone noted. Pancreas: Homogeneous enhancement. No mass, inflammation or ductal dilation. Spleen: Stable enlarged spleen measuring 13.7 cm long. Adrenals: No significant abnormality noted. Kidneys and ureters: Stable 1.0 x 0.8 cm hypodense nodule right kidney. Hypodense nodule inferior pole of the right kidney. Stable 4 mm nonobstructing left kidney stone. No hydronephrosis. No urinary gas. Stomach and bowel: Colonic diverticulosis without diverticulitis. No intestinal thickening or obstruction. PELVIS: Appendix: Well seen and appears normal. Bladder: Incompletely distended urinary bladder is moderately thickened and mildly inflamed. No gas or stone. Reproductive: No abnormalities noted. ABDOMEN and PELVIS: Intraperitoneal space: No free air. No significant fluid collection. Bones/joints: Degenerative changes present throughout the spine with posterior T12-L2 fusion. There is T12, L1 and L2 kyphoplasty. Soft tissues: There is a right paramedian fat-containing ventral hernia series 3 image 139. Fat-containing right inguinal hernia noted. Vasculature: Atherosclerotic calcification of the aorta and branches. No aneurysm. Lymph nodes: No pathologically enlarged lymph nodes. IMPRESSION: 1. Incompletely imaged consolidation in the right lower lobe and small adjacent pleural effusion most concerning for pneumonia. 2. Cystitis. 3. Indeterminant hypodense nodule in the right kidney is unchanged. If this has not been assessed with sonogram to confirm simple cystic nature, consider nonemergent renal ultrasound. Electronically signed by Jeannette Duarte 05-24-2024 6:27 PM Discharge Plan Visit Data Chief Complaint: Abdominal Pain Stated Complaint: DIARREHA, FLUID ON LUNGS, SOB, CHEST PAIN ED Provider: Antonella Hicks Discharge Problem: Diarrhea, Pneumonia, Hypoxia, Acute hyponatremia Forms Stand Alone Forms: [facility] Prescriptions Prescriptions: No Action levothyroxine 50 mcg capsule 50 mcg PO DAILY carvedilol 12.5 mg tablet 12.5 mg PO BIDM Qty: 60 1RF Entresto 49-51 mg tablet 1 tab PO BID Qty: 60 0RF nitroglycerin [Nitrostat] 0.4 mg Tablet, Sublingual 0.4 mg Sublingual DIRECTED PRN (Reason: Chest Pain) Rx Instructions: PLACE ONE TABLET UNDER THE TONGUE EVERY 5 MINUTES FOR UP TO 3 DOSES OVER 15 MINUTES IF NEEDED FOR CHEST PAIN. solifenacin [Vesicare] 5 mg tablet 10 mg PO QAM atorvastatin 80 mg tablet 80 mg PO HS acetaminophen [Tylenol Extra Strength] 500 mg Tablet 1,000 mg PO AMHS magnesium oxide 400 mg magnesium capsule 400 mg PO QAM aspirin 81 mg Tablet,Delayed Release (Dr/Ec) 81 mg PO QAM tramadol 50 mg tablet 50 mg PO UD PRN (Reason: Pain) hydrochlorothiazide 12.5 mg tablet 12.5 mg PO QAM alendronate 70 mg tablet 70 mg PO .QWEEKLY isosorbide mononitrate 120 mg tablet extended release 24 hr 120 mg PO DAILY gabapentin 100 mg capsule 100 mg PO HS metformin 500 mg tablet extended release 24 hr 500 mg PO DAILY Referrals Referrals: Luzma Yu MD [Primary Care Provider] -
[2024-05-24 17:09] LABS: Basophils # (auto) 0.01 K/uL (0.00-0.20); Basophils % (auto) 0.1 %; Hematocrit (blood only) 31.7 % (37.0-47.0); Immature Granulocytes # (auto) 0.11 K/uL (0.01-0.20); Lymphocytes # (auto) 0.55 K/uL (1.20-3.40); Lymphocytes % (auto) 4.9 %; Mean Corpuscular Hemoglobin 30.1 pg (25.0-34.0); Mean Corpuscular Hgb Conc 34.7 g/dL (32.0-36.0); Mean Corpuscular Volume 86.8 fL (80.0-100.0); Mean Platelet Volume 10.2 fL (9.4-12.4); Monocytes # (auto) 0.48 K/uL (0.11-0.59); Monocytes % (auto) 4.3 %; Neutrophils # (auto) 10.02 K/uL (1.40-6.50); Neutrophils % (auto) 89.7 %; Platelet Count 160 K/uL (130-400); RDW Coefficient of Variation 12.7 % (11.5-14.5); RDW Standard Deviation 40.6 fL (36.4-46.3); Red Blood Count 3.65 M/uL (4.20-5.40); White Blood Count 11.17 K/ul (4.8-10.8)
[2024-05-24 17:20] LABS: Alanine Aminotransferase 18 U/L (7-52); Albumin Globulin Ratio 0.9 (0.9-2); Albumin Level 3.7 gm/dl (3.4-5.0); Alkaline Phosphatase 140 U/L (34-104); Anion Gap 9 (3-11); Aspartate Aminotransferase 24 U/L (13-39); Bilirubin,Total 1.9 mg/dl (0.2-1.0); Blood Urea Nitrogen 24 mg/dl (6-23); Calcium 9.4 mg/dl (8.6-10.3); Carbon Dioxide 25 mmol/L (21-32); Chloride 96 mmol/L (98-107); Globulin 4.2 gm/dl (2.5-4.0); Glucose 146 mg/dl (70-99(Fasting)); Magnesium 2.1 mg/dl (1.7-2.4); Potassium 4.8 mmol/L (3.5-5.1); Sodium 130 mmol/L (136-145); Total Protein 7.9 gm/dl (6.0-8.3)
[2024-05-24 17:24] LABS: Troponin I High Sensitivity 14.1 pg/ml (0-14)
[2024-05-24 17:31] LABS: INR 1.1 (0.9-1.1); Prothrombin Time 11.5 Seconds (9.0-12.0)
[2024-05-24 17:32] LABS: Thyroid Stimulating Hormone 0.339 uIu/ml (0.300-4.500)
--- NOTE | 2024-05-24 17:34 | XRay Report ---
EXAM: Radiograph of the Chest 1 View INDICATION: Weakness. TECHNIQUE: Frontal view of the chest. COMPARISON: 04/14/2024 FINDINGS: Lungs and pleural spaces: Groundglass infiltrates superimposed on fibrotic changes most notable in the right base. No pleural effusion or pneumothorax. Heart: Shape and configuration within normal limits allowing for technique. Mediastinum: Normal contour. Bones/joints: No fracture, erosion or dislocation. Soft tissues: No abnormality noted. No radiopaque foreign body noted. Tubes, lines and devices: Stable cardiac defibrillator device. Stable cardiac shape and configuration. Upper abdomen: No abnormality noted. IMPRESSION: Groundglass opacities superimposed on fibrosis could reflect pneumonia including viral etiologies, bronchitis or pulmonary edema. ACT 112: Negative or not required by law. Electronically signed by Jeannette Duarte 05-24-2024 5:34 PM
[2024-05-24 17:47] LABS: Adenovirus PCR Not Detected (NotDetected); Bordetella parapertussis PCR Not Detected (NotDetected); Bordetella pertussis PCR Not Detected (NotDetected); Chlamydia pneumoniae PCR Not Detected (NotDetected); Coronavirus 229E PCR Not Detected (NotDetected); Coronavirus CoV-2 (COVID19)PCR Not Detected (NotDetected); Coronavirus HKU1 PCR Not Detected (NotDetected); Coronavirus NL63 PCR Not Detected (NotDetected); Coronavirus OC43PCR Not Detected (NotDetected); Human Metapneumovirus PCR Not Detected (NotDetected); Influenza A PCR Not Detected (NotDetected); Influenza B PCR Not Detected (NotDetected); Mycoplasma pneumoniae PCR Not Detected (NotDetected); Parainfluenza Virus 1 PCR Not Detected (NotDetected); Parainfluenza Virus 2 PCR Not Detected (NotDetected); Parainfluenza Virus 3 PCR Not Detected (NotDetected); Parainfluenza Virus 4 PCR Not Detected (NotDetected); Respiratory Syncytial VirusPCR Not Detected (NotDetected); Rhinovirus/Enterovirus PCR Not Detected (NotDetected)
[2024-05-24] MEDS: OPTIRAY 320 100ml IV ONE (17:53)
[2024-05-24] MEDS: AZITHROMYCIN 250 MG TAB PO ONE (18:19)
[2024-05-24] MEDS: cefTRIAXone SODIUM 1,000 MG/50 ML BAG IV STA (18:20)
--- NOTE | 2024-05-24 18:27 | CT Scan Report ---
EXAM: CT Abdomen and Pelvis With Intravenous Contrast INDICATION: Bilateral lower abdominal pain. TECHNIQUE: Axial computed tomography images of the abdomen and pelvis with intravenous contrast. Sagittal and coronal reformatted images were created and reviewed. This CT exam was performed using one or more of the following dose reduction techniques: automated exposure control, adjustment of the mA and/or kV according to patient size, and/or use of iterative reconstruction technique. CONTRAST: 89ml of Optiray 320 was administered intravenously. COMPARISON: 11/30/2018 FINDINGS: Limitations: None. Lung bases: No abnormality noted. Pleural space: Visualized airways are diffusely thickened. There is a masslike infiltrate in the right lung base measuring at least 5.8 x 5.3 cm and not measured along its entire longitudinal extent. There is trace adjacent pleural fluid. Heart: Cardiomegaly noted. Cardiac pacing device noted. Metallic artifact limits assessment of lead integrity. Mediastinum: No abnormality noted. ABDOMEN: Liver: No abnormality noted. Gallbladder and bile ducts: Cholecystectomy. No ductal dilation or stone noted. Pancreas: Homogeneous enhancement. No mass, inflammation or ductal dilation. Spleen: Stable enlarged spleen measuring 13.7 cm long. Adrenals: No significant abnormality noted. Kidneys and ureters: Stable 1.0 x 0.8 cm hypodense nodule right kidney. Hypodense nodule inferior pole of the right kidney. Stable 4 mm nonobstructing left kidney stone. No hydronephrosis. No urinary gas. Stomach and bowel: Colonic diverticulosis without diverticulitis. No intestinal thickening or obstruction. PELVIS: Appendix: Well seen and appears normal. Bladder: Incompletely distended urinary bladder is moderately thickened and mildly inflamed. No gas or stone. Reproductive: No abnormalities noted. ABDOMEN and PELVIS: Intraperitoneal space: No free air. No significant fluid collection. Bones/joints: Degenerative changes present throughout the spine with posterior T12-L2 fusion. There is T12, L1 and L2 kyphoplasty. Soft tissues: There is a right paramedian fat-containing ventral hernia series 3 image 139. Fat-containing right inguinal hernia noted. Vasculature: Atherosclerotic calcification of the aorta and branches. No aneurysm. Lymph nodes: No pathologically enlarged lymph nodes. IMPRESSION: 1. Incompletely imaged consolidation in the right lower lobe and small adjacent pleural effusion most concerning for pneumonia. 2. Cystitis. 3. Indeterminant hypodense nodule in the right kidney is unchanged. If this has not been assessed with sonogram to confirm simple cystic nature, consider nonemergent renal ultrasound. Electronically signed by Jeannette Duarte 05-24-2024 6:27 PM
--- NOTE | 2024-05-24 18:52 | History & Physical Report ---
Date of Service May 24, 2024 Assessment & Plan (1) Hypoxia: (2) Pneumonia: (3) Interstitial lung disease: (4) Diarrhea: (5) Coronary artery disease: (6) Type 2 diabetes mellitus: Plan This is a 68-year-old female with significant past medical history of ILD, traction bronchiectasis, PAF, chronic systolic CHF, history of complete heart block status post permanent pacemaker, biventricular ICD in situ, HTN, HLD, dementia, depression, history of alcohol abuse who presents to ED secondary to chronic diarrhea x 1 week. Hypoxia Right lower lobe pneumonia - concern for aspiration admit to telemetry patient with history of traction bronchiectasis, obtain CT chest to further clarify lung consolidation history of interstitial lung disease and [facility] [address] Empirically tx with IV Rocephin, Azithromycin and flagyl obtain speech eval to r/o aspiration as states pt freq has trouble swallowing wean O2 as able, incentive spirometry, prn nebs urine legionella ordered Chronic diarrhea reports on/off diarrhea for the past year pt and poor historian appears pt mostly incontinent of urine and stool, typically has 2 loose BM daily stop metformin obtain stool studies, stool for cdiff if negative consider bulking agent Possible Cystitis ct scan concern for cystitis await urine culture, empirically on IV rocephin Hyponatremia poor intake, obtain urine studies, serum osm NSS x 1 L CAD Chronic Systolic CHF hx of CHB s/p PPM BIV ICD present HTN/HLD follows [facility] cardiology given bp on lower side hold entresto, continue asa, imdur, coreg, statin Hypothyroidism: TSH borderline low 0.3, obtain T4, consider reduction of levothyroxine as OP TSH was only 0.22, patient may be over supplemented T2DM: a1c 6.2, continue diet control, Stop metformin at discharge due to ongoing diarrhea Hx of alcohol abuse mild dementia mood stable, worsening confusion due to underlying illness Chronic Anemia: anemia panel 1 yea ago was unrevealing, possibly in setting of chronic disease DVT ppx: SQ Heparin FULL CODE PCP: Luzma Yu Dispo: admit to tele Pt was seen and examined in collaboration with Dr. Greer, please see addendum I spent a total of 60 minutes reviewing notes, outpatient records, labs, medication, coordinating, documenting and providing care for this patient excluding time spent in the performance of separately billed services. History of Present Illness Chief Complaint: Diarrhea x 3 week and off and on for a year. Primary Care Provider: Luzma Yu MD This is a 68-year-old female with significant past medical history of ILD, traction bronchiectasis, PAF, chronic systolic CHF, history of complete heart block status post permanent pacemaker, biventricular ICD in situ, HTN, HLD, dementia, depression, history of alcohol abuse who presents to ED secondary to chronic diarrhea x 1 week. Of significance patient was seen in PCP office today. She was found to be hypoxic with a pulse ox of 79. It was recommended she seek ED for evaluation. Of significance [facility] Dailey. In regards to her ischemic cardiomyopathy. Hx obtained from pt, and chart review. She reports diarrhea x 3 weeks. at bedside states she getting, "weak as a kitten." Every time she tries to eat something it goes right through her. She denies any documented fever, but states she felt warm. Pt denies chest pain. She has a cough and produces clear sputum. also feels she isn't herself. She denies chills, sweats, n/v, change in urination. reports occasional trouble swallowing. When she tries to eat she starts gagging. She does not smoke, but has second hand exposure through . She occasionally drinks 1 alcoholic drink, but not daily. Allergies Allergy/AdvReac Type Severity Reaction Status Date / Time latex Allergy Intermediate HIVES Verified 05/20/24 10:09 adhesive Allergy Mild SKIN Verified 05/20/24 10:09 IRRITATION penicillin V Allergy Unknown CAN'T Verified 05/20/24 10:09 REMEMBER aspirin AdvReac Mild STOMACH Verified 05/20/24 10:09 UPSET Home Medications Medication Instructions Recorded Confirmed Type nitroglycerin 0.4 mg sublingual 0.4 mg sublingual DIRECTED PRN 06/16/18 05/24/24 History tablet (Nitrostat) Chest Pain atorvastatin 80 mg tablet 80 mg PO HS 03/12/21 05/24/24 History acetaminophen 500 mg tablet 1,000 mg PO AMHS 02/15/23 05/24/24 History (Tylenol Extra Strength) aspirin 81 mg tablet,delayed 81 mg PO QAM 04/28/23 05/24/24 History release magnesium oxide 400 mg PO QAM 04/28/23 05/24/24 History alendronate 70 mg tablet 70 mg PO .QWEEKLY 03/06/24 05/24/24 History gabapentin 100 mg capsule 100 mg PO HS 03/06/24 05/24/24 History isosorbide mononitrate 120 mg 120 mg PO QAM 03/06/24 05/24/24 History tablet,extended release 24 hr metformin 500 mg tablet,extended 500 mg PO DAILY 03/06/24 05/24/24 History release 24 hr levothyroxine 50 mcg capsule 50 mcg PO DAILY 03/28/24 05/24/24 History sacubitril 49 mg-valsartan 51 mg 1 tab PO BID #60 tabs 04/12/24 05/24/24 Rx tablet (Entresto) carvedilol 12.5 mg tablet 12.5 mg PO BIDM #60 tabs 05/05/24 05/24/24 Rx magnesium oxide 400 mg (241.3 mg 400 mg PO DAILY 05/24/24 05/24/24 History magnesium) tablet solifenacin 10 mg tablet 10 mg PO DAILY 05/24/24 05/24/24 History Past Med/Surg History Problem List Acute hyponatremia (Acute) Hypoxia (Acute) Pneumonia (Acute) Diarrhea (Acute) Interstitial lung disease S/P coronary artery stent placement Non-ST elevation LA (NSTEMI) (Acute) Chest pain (Acute) LBBB (left bundle branch block) Chest pain (Acute) Generalized weakness (Acute) Dyslipidemia Parainfluenza (Acute) Pneumonia (Acute) RAD (reactive airway disease) (Acute) UGIB (upper gastrointestinal bleed) SOB (shortness of breath) HBP (high blood pressure) GERD (gastroesophageal reflux disease) Osteoporosis AF (paroxysmal atrial fibrillation) Depression Diabetes mellitus, type 2 Fracture of L1 vertebra (Acute) Fall (Acute) Mixed hearing loss, bilateral Coronary artery disease Fatigue ICD (implantable cardioverter-defibrillator), biventricular, in situ Encounter for pre-operative examination Encounter for pre-operative examination Esophageal dysphagia Left knee pain (Acute) Left knee pain (Acute) Unstable angina Syncope (Acute) DVT prophylaxis Acute cystitis Ischemic cardiomyopathy Hypothyroidism PT DENIES. Medical History Elevated troponin S/P right coronary artery (RCA) stent placement (2015) History of placement of stent in LAD coronary artery (2008) History of placement of stent in LAD coronary artery (2019) Hypomagnesemia Acute hypokalemia Non-ST elevation LA (NSTEMI) Pneumonia Acid reflux disease with ulcer Alcohol abuse, unspecified Anxiety state, unspecified Anxiety disorder Atrial fibrillation Coronary artery disease Cardiac arrest Cardiomyopathy Congestive heart failure, unspecified Congestive cardiomyopathy Cor athrscl-uns vessel Depressive disorder, not elsewhere classified Dysphagia, oropharyngeal phase Fecal incontinence Goiter Celia's thyroiditis Other and unspecified hyperlipidemia Ocular hypertension, unspecified eye Lumbago Lumbar compression fracture Old myocardial infarct Postmenopausal atrophic vaginitis Subclinical hypothyroidism Type 2 diabetes mellitus Unknown whether patient has any health problems Urinary tract infection FREQUENT Cancer SKIN CANCER Hypertension Anxiety GERD (gastroesophageal reflux disease) HLD (hyperlipidemia) CAD (coronary artery disease) Surgical History History of appendectomy History of cardiac cath 1 STENT (2015 @ [facility]) History of esophagogastroduodenoscopy (EGD) History of colonoscopy History of tonsillectomy S/P placement of cardiac pacemaker ~15-20 YEARS AGO. FOLLOWS WITH DR DAILEY AND LAST CHECKED 4 MONTHS AGO History of cholecystectomy Family History Mother Family history of diabetes mellitus Blind Hearing loss Hypertension Allergies Asthma Sister Family history of diabetes mellitus Coronary heart disease Father No problems noted. Denies family history of No family history of adverse response to anesthesia No family history of bleeding disorder Heart disease Cancer Stroke Social History Smoking Status: Never smoker Tobacco Type: Cigarettes Second Hand Exposure: No; Do You Dip or Chew Tobacco: No; Hx Alcohol Use: Yes Alcohol type: beer and hard liquor Alcohol Intake Frequency: 2-3 x/Week Hx Substance Use: No Preferred Language: Tamazight Communication Ability: Effective Central Supply Clerk Required: No Beliefs That Will Affect Care: None marital status: Current Living Situation: Spouse How many Children do You have: 1 Feels Safe at Home: Yes Assistive Devices: None Review of Systems 2 Review of Systems: All systems reviewed & are unremarkable except as noted in HPI & below Physical Exam Physical Exam: please refer to Dr. Greer addendum for physical exam findings Results & Data Results & Data Vital Signs (Past 12 Hours) Vital Signs Temp Pulse Pulse Resp BP BP Pulse Ox 05/24/24 18:24 88 16 118/64 94 05/24/24 17:11 05/24/24 16:57 89 L 05/24/24 16:32 89 05/24/24 16:21 36.8 C 90 14 117/67 98 O2 Del Method O2 Flow Rate 05/24/24 18:24 Nasal Cannula 2 05/24/24 17:11 Room Air 05/24/24 16:57 Room Air, Nasal Cannula 0 05/24/24 16:32 05/24/24 16:21 Room Air Laboratory Results I have independently reviewed and interpreted patient's admitting labs including CBC, CMP, PT/INR, mag and troponin. Diagnostic Findings Chest X-Ray 05/24/24 16:25 EXAM: Radiograph of the Chest 1 View INDICATION: Weakness. TECHNIQUE: Frontal view of the chest. COMPARISON: 04/14/2024 FINDINGS: Lungs and pleural spaces: Groundglass infiltrates superimposed on fibrotic changes most notable in the right base. No pleural effusion or pneumothorax. Heart: Shape and configuration within normal limits allowing for technique. Mediastinum: Normal contour. Bones/joints: No fracture, erosion or dislocation. Soft tissues: No abnormality noted. No radiopaque foreign body noted. Tubes, lines and devices: Stable cardiac defibrillator device. Stable cardiac shape and configuration. Upper abdomen: No abnormality noted. IMPRESSION: Groundglass opacities superimposed on fibrosis could reflect pneumonia including viral etiologies, bronchitis or pulmonary edema. ACT 112: Negative or not required by law. Electronically signed by Jeannette Duarte 05-24-2024 5:34 PM Abdomen/Pelvis CT 05/24/24 16:37 EXAM: CT Abdomen and Pelvis With Intravenous Contrast INDICATION: Bilateral lower abdominal pain. TECHNIQUE: Axial computed tomography images of the abdomen and pelvis with intravenous contrast. Sagittal and coronal reformatted images were created and reviewed. This CT exam was performed using one or more of the following dose reduction techniques: automated exposure control, adjustment of the mA and/or kV according to patient size, and/or use of iterative reconstruction technique. CONTRAST: 89ml of Optiray 320 was administered intravenously. COMPARISON: 11/30/2018 FINDINGS: Limitations: None. Lung bases: No abnormality noted. Pleural space: Visualized airways are diffusely thickened. There is a masslike infiltrate in the right lung base measuring at least 5.8 x 5.3 cm and not measured along its entire longitudinal extent. There is trace adjacent pleural fluid. Heart: Cardiomegaly noted. Cardiac pacing device noted. Metallic artifact limits assessment of lead integrity. Mediastinum: No abnormality noted. ABDOMEN: Liver: No abnormality noted. Gallbladder and bile ducts: Cholecystectomy. No ductal dilation or stone noted. Pancreas: Homogeneous enhancement. No mass, inflammation or ductal dilation. Spleen: Stable enlarged spleen measuring 13.7 cm long. Adrenals: No significant abnormality noted. Kidneys and ureters: Stable 1.0 x 0.8 cm hypodense nodule right kidney. Hypodense nodule inferior pole of the right kidney. Stable 4 mm nonobstructing left kidney stone. No hydronephrosis. No urinary gas. Stomach and bowel: Colonic diverticulosis without diverticulitis. No intestinal thickening or obstruction. PELVIS: Appendix: Well seen and appears normal. Bladder: Incompletely distended urinary bladder is moderately thickened and mildly inflamed. No gas or stone. Reproductive: No abnormalities noted. ABDOMEN and PELVIS: Intraperitoneal space: No free air. No significant fluid collection. Bones/joints: Degenerative changes present throughout the spine with posterior T12-L2 fusion. There is T12, L1 and L2 kyphoplasty. Soft tissues: There is a right paramedian fat-containing ventral hernia series 3 image 139. Fat-containing right inguinal hernia noted. Vasculature: Atherosclerotic calcification of the aorta and branches. No aneurysm. Lymph nodes: No pathologically enlarged lymph nodes. IMPRESSION: 1. Incompletely imaged consolidation in the right lower lobe and small adjacent pleural effusion most concerning for pneumonia. 2. Cystitis. 3. Indeterminant hypodense nodule in the right kidney is unchanged. If this has not been assessed with sonogram to confirm simple cystic nature, consider nonemergent renal ultrasound. Electronically signed by Jeannette Duarte 05-24-2024 6:27 PM Medications Administered Medication List Discontinued Medications Azithromycin (Azithromycin 250 Mg Tab) 500 mg PO NOW ONE Stop: 05/24/24 18:09 Last Admin: 05/24/24 18: Dose: 500 mg Documented By: ELMER Ceftriaxone Sodium (Rocephin) 1,000 mg in 50 mls @ 100 mls/hr IV NOW STA Stop: 05/24/24 18:37 Last Admin: 05/24/24 18:20 Dose: 100 mls/hr Documented By: ELMER Ioversol (Optiray 320 100ml) 89 ml IV ONCE ONE Stop: 05/24/24 17:53 Last Admin: 05/24/24 17:53 Dose: 89 ml Documented By: TRAVIS ECG Additional Comments: I have independently reviewed and interpreted patient's admitting EKG which revealed: 86 bpm, atrial sensed v paced, qtc 500ms COVID-19 Results Results COVID-19 Adm Lab Results: RBC 3.65 M/uL (4.20-5.40) L 05/24/24 WBC 11.17 K/ul (4.8-10.8) H 05/24/24 Hgb 11.0 g/dl (12.0-16.0) L 05/24/24 Hct 31.7 % (37.0-47.0) L 05/24/24 Plt Count 160 K/uL (130-400) 05/24/24 Neutrophils (%) (Auto) 89.7 % 05/24/24 Lymphocytes (%) (Auto) 4.9 % 05/24/24 Monocytes # (Auto) 0.48 K/uL (0.11-0.59) 05/24/24 Eosinophils # (Auto) 0.00 K/uL (0.00-0.50) 05/24/24 Immature Granulocyte % (Auto) 1.0 % 05/24/24 Neutrophils # (Auto) 10.02 K/uL (1.40-6.50) H 05/24/24 Lymphocytes # (Auto) 0.55 K/uL (1.20-3.40) L 05/24/24 Monocytes # (Auto) 0.48 K/uL (0.11-0.59) 05/24/24 Eosinophils # (Auto) 0.00 K/uL (0.00-0.50) 05/24/24 Basophils # (Auto) 0.01 K/uL (0.00-0.20) 05/24/24 Immature Granulocyte # (Auto) 0.11 K/uL (0.01-0.20) 4 Na 130 mmol/L (136-145) L 05/24/24 K 4.8 mmol/L (3.5-5.1) 05/24/24 Cl 96 mmol/L (98-107) L 05/24/24 CO2 25 mmol/L (21-32) 05/24/24 Anion Gap 9 (3-11) 05/24/24 BUN 24 mg/dl (6-23) H 05/24/24 Creatinine 1.00 mg/dl (0.6-1.2) 05/24/24 BUN/Creatinine Ratio 24.0 (10-20) H 05/24/24 Glucose Level 146 mg/dl (70-99(Fasting)) H 05/24/24 Ca 9.4 mg/dl (8.6-10.3) 05/24/24 Total Bilirubin 1.9 mg/dl (0.2-1.0) H 05/24/24 AST/SGOT 24 U/L (13-39) 05/24/24 ALT/SGPT 18 U/L (7-52) 05/24/24 Alkaline Phosphatase 140 U/L (34-104) H 05/24/24 Total Protein 7.9 gm/dl (6.0-8.3) 05/24/24 Albumin 3.7 gm/dl (3.4-5.0) 05/24/24 Globulin 4.2 gm/dl (2.5-4.0) H 05/24/24 Albumin/Globulin Ratio 0.9 (0.9-2) 05/24/24 INR 1.1 (0.9-1.1) 05/24/24 Adenovirus (PCR) Not Detected (NotDetected) 05/24/24 B. parapertussis DNA (PCR) Not Detected (NotDetected) 05/06 03/29 B. pertussis DNA (PCR) Not Detected (NotDetected) 05/24/24 C. pneumoniae DNA (PCR) Not Detected (NotDetected) 4 Coronavirus Type OC43 (PCR) Not Detected (NotDetected) Coronavirus Type HKU1 (PCR) Not Detected (NotDetected) Coronavirus Type 229E (PCR) Not Detected (NotDetected) COVID-19 PCR Not Detected (NotDetected) 05/24/24 Coronavirus Type NL63 (PCR) Not Detected (NotDetected) Human Metapneumovirus (PCR) Not Detected (NotDetected) Influenza Virus Type A (PCR) Not Detected (NotDetected) Influenza Virus Type B (PCR) Not Detected (NotDetected) M. pneumoniae (PCR) Not Detected (NotDetected) 05/24/24 Parainfluenza Type 1 (PCR) Not Detected (NotDetected) 05/06 03/29 Parainfluenza Type 2 (PCR) Not Detected (NotDetected) 05/06 03/29 Parainfluenza Type 3 (PCR) Not Detected (NotDetected) 05/06 03/29 Parainfluenza Type 4 (PCR) Not Detected (NotDetected) 05/06 03/29 RSV (PCR) Not Detected (NotDetected) 05/24/24 Enterovirus/Rhinovirus (PCR) Not Detected (NotDetected) Chest CT 05/24/24 Chest X-Ray 05/24/24 Code Status & VTE Plan Code Status FULL CODE Supervising Physician Co-Signing Physician Notes Patient seen and examined She has hearing deficits reports SOB over the past few days, chronic diarrhea, worsening weakness and weight loss, dysphagia, occasional confusion On exam, General: Chronically ill appearing Eyes: PERRL, conjunctivae normal, not pale, anicteric sclerae, EOM intact bilaterally ENMT: +Hearing deficits Respiratory: On nasal cannula, not in resp distress, +basilar crackles Cardiovascular: RRR S1 S2 Gastrointestinal (Abdomen): Abdomen is not distended, soft, non-tender to palpation, no guarding, no palpable hepatosplenomegaly, normal bowel sounds Musculoskeletal: No pedal edema Genitourinary: No CVA tenderness Skin: No rash noted on gross inspection, No ulcers noted Neurologic: Alert and oriented to person and place only, No focal weakness, sensation grossly intact Psychiatric: Euthymic affect CXR noted groundglass opacities superimposed on fibrosis Continue ceftriaxone and azithro for Pneumonia Due to report of dysphagia, will add coverage for anerobes with flagyl for possible aspiration Stool PCR/c diff Stop gabapentin BP currently 92/56. Hold home entresto for now and reassess in AM Stop metformin in view of chronic diarrhea. Will need outpatient GI f/u for further eval Agree with other plans as detailed by Rody Gonzalez PA-C I spent a total of 45 minutes coordinating, documenting and providing care for this patient excluding time spent in performance of separately billed services
[2024-05-24] MEDS: metroNIDAZOLE 500 MG/100 ML BAG IV STA (20:04)
[2024-05-24] MEDS ORDERED: ONDANSETRON INJ 2 MG/ML 2 ML VIAL IV PRN (21:06)
[2024-05-24 21:27] LABS: Troponin I High Sensitivity 13.2 pg/ml (0-14)
[2024-05-24 21:39] LABS: T4 Free Thyroxine 1.41 ng/dl (0.61-1.60)
[2024-05-24] MEDS: ACETAMINOPHEN 325 MG TAB PO PRN (21:42)
[2024-05-24] MEDS: SODIUM CHLORIDE 0.9% 1,000 ML IV SCH (21:43)
[2024-05-24] MEDS: ALBUTEROL 0.083% NEBU SOLN 3 ML VIAL NEB PRN (22:18)
[2024-05-24] MEDS: ATORVASTATIN 40 MG TAB PO SCH (23:11)
[2024-05-24] MEDS: HEPARIN SOD 5,000 UNIT/0.5 ML VIAL SQ SCH (23:11)
--- NOTE | 2024-05-24 23:56 | CT Scan Report ---
Exam(s): CT CHEST Without Contrast EXAM: CT Chest Without Intravenous Contrast CLINICAL HISTORY: Reason for exam: hypoxia, pNA. TECHNIQUE: Axial computed tomography images of the chest without intravenous contrast. CTDI is 7.25 mGy and DLP is 199.23 mGy-cm. Automated exposure control was utilized for the study. A dose lowering technique was utilized adhering to the principles of ALARA. COMPARISON: Chest CT 03/06/2024 FINDINGS: Lungs: Right lower lobe consolidation consistent with pneumonia. Chronic fibrotic changes. Pleural space: Trace right pleural effusion. Heart: Coronary artery calcifications/stents. Bones/joints: No acute findings. Soft tissues: Unremarkable. Vasculature: See above. Lymph nodes: Unremarkable. Tubes, lines and devices: Multiple pacemaker leads in place. IMPRESSION: 1. Right lower lobe consolidation consistent with pneumonia. 2. Chronic fibrotic changes. 3. Trace right pleural effusion. Electronically signed by: Gus Paredes MD 05/24/24 23:55 PM
[2024-05-25] MEDS ORDERED: OLANZapine 10 MG/2.1 ML SDV IM PRN (01:59)
[2024-05-25 02:04] LABS: Appearance Urine Clear (Clear); Bacteria Urine Automated 2+ (None Seen); Bilirubin Urine Negative (Negative); Blood Urine Negative (Negative); Color Urine Yellow; Epithelial Cell Urine Auto 0-2 /hpf (0-2); Glucose Urine UA Negative (Negative); Ketones Urine Negative (Negative); Leukocyte Esterase Urine Trace (Negative); Nitrite Urine Positive (Negative); Protein Urine 1+ (Negative); RBC Urine Automated 0-2 /hpf (0-2); Specific Gravity Urine > 1.045 (1.000-1.030); Urobilinogen Urine Negative (Negative); WBC Urine Automated 0-5 /hpf (0-5); pH Urine 5.5 (4.5-7.5)
[2024-05-25] MEDS ORDERED: LORazepam 2 MG/1 ML VIAL IV PRN ×3 (02:09)
[2024-05-25] MEDS ORDERED: Ativan IV Alcohol Withdrawal--Active Protocol IV PRN (02:09)
--- NOTE | 2024-05-25 02:14 | Communication Note ---
Date of Service: May 25, 2024 2AM Patient noted to be restless, confused, and increasingly short of breath as per RN. Audible wheezes. Respiratory rate 28 O2 sats 80s on room air. Patient denies chest pain. Admits to cough symptoms worse on eating food/drinking water. PPE Disoriented, slightly anxious Decreased breath sounds with scattered expiratory wheezes Chest x-ray as per my interpretation congestion, bilateral infiltrates AP Encephalopathy Multifactorial Hypoxemic respiratory failure secondary to RLD exacerbation secondary to probable aspiration pneumonia ? Alcohol withdrawal Supplemental O2 Baseline VBG Solu-Medrol followed by short course low-dose prednisone, nebs RTC Ertapenem for probable aspiration pneumonia/complicated UTI, Doxycycline in place of azithromycin given QTc of 500 on review of admission EKG SUKUMAR S, DT precautions 5:40 AM Patient with decreased responsiveness as per RN. BSG 120s. Hemoglobin 8.3 from 11 yesterday "I need to go to the bathroom," as per patient. PPE Obtunded, no dysarthria No facial symmetry No pronator drift No respiratory distress Rectal: Intact sphincter, brown stool, FOBT negative AP Encephalopathy ? Possibly from Zyprexa Rule out ICH given anemia CT head Hold aspirin and heparin subcu for now until bleeding ruled out. Patient updated of developments over the phone. He monitors patient's alcohol intake given prior abuse concerns as per records. No current concerns for alcohol abuse at home. Will DC SUKUMAR S protocol.
[2024-05-25] MEDS: OLANZapine 10 MG/2.1 ML SDV IM STA (02:18)
[2024-05-25] MEDS: ALBUT/IPRATROP 3MG/0.5MG NEB 3 ML VIAL NEB STA (02:28)
[2024-05-25] MEDS: methylPREDNISolone 20 MG in SYRINGE 0 ML IV ONE (02:45)
[2024-05-25] MEDS: THIAMINE HCL 100 MG in SYRINGE 9 ML IV STA (02:46)
[2024-05-25 03:04] LABS: Base Excess VBG -3.4 mEq/L; HCO3 VBG 24 mmol/L; Oxygen Saturation VBG < 60.0 %; PCO2 VBG 49 mmHg (38-50); PO2 VBG 27 mmHg; pH VBG 7.29 (7.36-7.41)
[2024-05-25 03:18] LABS: Hematocrit (blood only) 25.4 % (37.0-47.0); Hemoglobin 8.3 g/dl (12.0-16.0); Mean Corpuscular Hemoglobin 28.5 pg (25.0-34.0); Mean Corpuscular Hgb Conc 32.7 g/dL (32.0-36.0); Mean Corpuscular Volume 87.3 fL (80.0-100.0); Mean Platelet Volume 10.2 fL (9.4-12.4); Platelet Count 137 K/uL (130-400); RDW Coefficient of Variation 12.9 % (11.5-14.5); Red Blood Count 2.91 M/uL (4.20-5.40); White Blood Count 8.87 K/ul (4.8-10.8)
[2024-05-25 03:25] LABS: Albumin Globulin Ratio 0.9 (0.9-2); BUN Creatinine Ratio 27.1 (10-20); Calcium 8.5 mg/dl (8.6-10.3); Creatinine Clr Calc Pharmacy 43.1 ml/min; Globulin 3.4 gm/dl (2.5-4.0); Potassium 3.8 mmol/L (3.5-5.1); Total Protein 6.4 gm/dl (6.0-8.3)
[2024-05-25 03:31] LABS: Basophils # (auto) 0.02 K/uL (0.00-0.20); Basophils % (auto) 0.2 %; Eosinophils # (auto) 0.04 K/uL (0.00-0.50); Eosinophils % (auto) 0.5 %; Immature Granulocytes # (auto) 0.07 K/uL (0.01-0.20); Immature Granulocytes % (auto) 0.8 %; Lymphocytes # (auto) 0.38 K/uL (1.20-3.40); Lymphocytes % (auto) 4.3 %; Monocytes # (auto) 0.32 K/uL (0.11-0.59); Monocytes % (auto) 3.6 %; Neutrophils # (auto) 8.04 K/uL (1.40-6.50); Neutrophils % (auto) 90.6 %
[2024-05-25 03:44] LABS: Partial Thromboplastin Ratio 1.3; Partial Thromboplastin Time 36 Seconds (21-31)
--- NOTE | 2024-05-25 04:23 | XRay Report ---
EXAM: XR chest 1V portable CLINICAL HISTORY: LOW O2 JMF TECHNIQUE: An X-ray image of the chest is obtained in AP projection. COMPARISON: 05/24/2024. FINDINGS: Pulmonary Parenchyma: Bilateral upper and lower lobes patchy areas of air opacification, likely inflammatory/infectious versus pulmonary edema, clinical correlation advised . Almost stable since the last study. Diffuse increased broncho vascular marking. No evidence of pleural effusion or pleural thickening. Heart and Mediastinum: Heart size is limited on this projection. No mediastinal widening or masses. No hilar or mediastinal lymphadenopathy. Bony Thorax: Bony thorax appears intact without fractures or deformities. Soft Tissues: A left sided cardiac pacemaker with multiple wires projected over the heart, one of them shows kinking. IMPRESSION: 1. Bilateral upper and lower lobes patchy areas of air opacification, likely inflammatory/infectious versus pulmonary edema, clinical correlation advised . Almost stable since the last study. 2. No changes since the last study. Electronically signed by Hipolito Gray 05-25-2024 04:23 AM
[2024-05-25] MEDS ORDERED: GABAPENTIN 800MG ALCOHOL WITHDRAWAL LOAD PO STA (04:39)
[2024-05-25] MEDS: FUROSEMIDE INJ 20 MG/2 ML VIAL IV ONE (05:22)
[2024-05-25] MEDS: ALBUMIN 25% 12.5 GM/50 ML VIAL IV ONE (05:33)
[2024-05-25] MEDS: LEVOTHYROXINE SODIUM 50 MCG TABLET PO SCH (05:34)
[2024-05-25] MEDS: GABAPENTIN 400 MG CAP PO ONE (05:42)
[2024-05-25] MEDS: ERTAPENEM 1000MG 1,000 MG/10 ML SYR IV SCH (05:56)
[2024-05-25] MEDS: ALBUT/IPRATROP 3MG/0.5MG NEB 3 ML VIAL NEB SCH ×2 (06:09→19:55)
[2024-05-25 06:24] LABS: Base Excess VBG -1.8 mEq/L; HCO3 VBG 25 mmol/L; Oxygen Saturation VBG < 60.0 %; PCO2 VBG 48 mmHg (38-50); PO2 VBG 33 mmHg; pH VBG 7.32 (7.36-7.41)
[2024-05-25 06:43] LABS: Hematocrit (blood only) 27.6 % (37.0-47.0); Hemoglobin 9.2 g/dl (12.0-16.0)
--- NOTE | 2024-05-25 07:27 | CT Scan Report ---
EXAM: CT head/brain wo con CLINICAL HISTORY: Pt. reports diarrhea for last three weeks, fatigue, and weakness. Pt.denies abdominal pain recent loss of bladder and bowel control intermittent fevers afebrile in triage TECHNIQUE: Axial non-contrast CT scan of the brain was performed from the skull base to the high parietal region. reconstructed coronal and sagittal images were obtained. images viewed in brain and bone windows. One of the following dose reduction techniques were utilized for this exam: Automated exposure control, adjustment of the mA and/or kV according to patient size, use of iterative reconstruction. COMPARISON: Prior studies, latest dated 04/14/2024 FINDINGS: Diffuse periventricular and deep white matter hypodensity, with hypodensity of left anterior limb of internal capsule seen as well, these findings appear consistent through previous studies, suggestive of small vessel ischemic vasculopathy related changes Dilated ventricular system with prominent sulci and cisterns suggestive of age-related involutional brain changes Subtle bilateral basal ganglia calcific densities, likey senile calcifications Brain Parenchyma: No evidence of acute infarct, hemorrhage, or mass effect. No abnormal areas of hypo- or hyperattenuation. Subarachnoid Spaces: No evidence of subarachnoid hemorrhage or extra-axial fluid collections. Cerebellum and Brainstem: Normal size and signal. No masses, lesions, or areas of abnormal signal. Orbits: Normal appearance of the globes, optic nerves, and extraocular muscles. No evidence of orbital masses or abnormal signal. Sinuses: Clear paranasal sinuses. No evidence of sinusitis or mucosal thickening. Mastoid Air Cells: Clear mastoid air cells. No evidence of mastoiditis. Skull and Meninges: Normal skull morphology. IMPRESSION: 1. No hemorrhagic densities or evidence of recent ischemic insult, advised clinical correlation and MRI study (with diffusion) if clinically warranted 2. Small vessel ischemic vasculopathy-related changes in the form of diffuse periventricular and deep white matter hypodensity, with hypodensity of left anterior limb of internal capsule seen as well 3. Age-related involutional brain changes seen as a dilated ventricular system with prominent sulci and cisterns 4. Bilateral basal ganglia senile calcifications 5. Stationary course. Electronically signed by Hipolito Gray 05-25-2024 07:27 AM
[2024-05-25] MEDS: carvediloL 12.5 MG TAB PO SCH (08:02)
[2024-05-25] MEDS ORDERED: DOXYCYCLINE HYCLATE 100 MG CAP PO SCH (09:00)
[2024-05-25] MEDS: MAGNESIUM OXIDE 400 MG TAB PO SCH (09:00)
[2024-05-25] MEDS: ISOSORBIDE MONO EXTENDED REL 60 MG TABCR PO SCH (09:00)
[2024-05-25] MEDS: MULTIVITAMIN TAB PO SCH (09:00)
[2024-05-25] MEDS: FOLIC ACID 1 MG TAB PO SCH (09:00)
[2024-05-25] MEDS ORDERED: ASPIRIN 81 MG ECTAB PO SCH (09:00)
--- NOTE | 2024-05-25 09:00 | Hospitalist Progress Note ---
Date of Service May 25, 2024 Assessment & Plan (1) Hypoxia: (2) Pneumonia: (3) Interstitial lung disease: (4) Diarrhea: (5) Coronary artery disease: (6) Type 2 diabetes mellitus: Plan This is a 68-year-old female with significant past medical history of ILD, traction bronchiectasis, PAF, chronic systolic CHF, history of complete heart block status post permanent pacemaker, biventricular ICD in situ, HTN, HLD, dementia, depression, history of alcohol abuse who presents to ED secondary to chronic diarrhea x 1 week. Was sent from PCP as she was saturating there at 79% Hypoxia Right lower lobe pneumonia - concern for aspiration admitted to telemetry patient with history of traction bronchiectasis, obtained CT chest to further clarify lung consolidation 1. Right lower lobe consolidation consistent with pneumonia. 2. Chronic fibrotic changes. 3. Trace right pleural effusion. history of interstitial lung disease and follows Dr. Hoda gill of [facility] Empirically tx with IV Rocephin, Azithromycin and flagyl on admission -> changed overnight to Ertapenem and doxy obtain speech eval to r/o aspiration as states pt freq has trouble swallowing wean O2 as able, incentive spirometry, prn nebs urine legionella ordered Overnight wheezing, sats in 80s on RA, pt restless- received solumedrol, nebs, low dose prednisone Ertapenem for probable aspiration pneumonia/complicated UTI, Doxycycline in pl [place] of azithromycin given QTc of 500 on review of admission EKG Pulmonary consulted this AM Encephalopathy ? possibly from zyprexa CT head negative for cva or hemorrhage ammonia 15 cont. thiamine, folic acid Pt continues to be lethargic , able to open eyes, move extremities, but hardly talking will obtain ABG, discussed w/ Dr. Simons - cont. to closely monitor - upgrade to PCU status Chronic diarrhea reports on/off diarrhea for the past year pt and poor historian appears pt mostly incontinent of urine and stool, typically has 2 loose BM daily stop metformin obtain stool studies, stool for cdiff - not obtained yet if negative consider bulking agent Possible Cystitis ct scan concern for cystitis await urine culture, empirically on IV rocephin -> changed to ertapenem, as above Hyponatremia poor intake, obtain urine studies, serum osm NSS x 1 L CAD Chronic Systolic CHF hx of CHB s/p PPM BIV ICD present HTN/HLD follows [facility] cardiology given BP on lower side hold entresto continue asa, imdur, coreg, statin when able to take PP again Hypothyroidism: TSH borderline low 0.3, T4 1.3 wnl, follow up as outpt T2DM: a1c 6.2, continue diet control, Stop metformin at discharge due to ongoing diarrhea Hx of alcohol abuse mild dementia mood stable, worsening confusion due to underlying illness Chronic Anemia: anemia panel 1 year ago was unrevealing, possibly in setting of chronic disease DVT ppx: SQ Heparin FULL CODE PCP: Luzma Yu Dispo: admitted to tele, upgrade to PCU Admission and Anticipated Discharge Date Admission Date: May 24, 2024 Subjective Pt seen in follow up of hypoxia, pna, now w/ ams hx of ILD Overnight pt agitated, received im zyprexa, then pt became lethargic, also was on bipap overnight CT head obtained negative for cva or hemorrhage Currently laying in bed in [facility], RN present at the bedside Pt on NC, breathing comfortably at this time She has difficulty opening her eyes and moving but she seems to be trying to follow commands She is hardly speaking she nods as "no" when asking about chest pain, abdominal pain or difficulty breathing No diarrhea since coming to the hospital - stool studies ordered Review of Systems Review of Systems: Unobtainable due to cognitive status Physical Exam Physical Exam: General: thin, Chronically ill appearing F , lethargic Eyes: PERRL, conjunctivae normal, anicteric sclerae ENMT: +Hearing deficits Respiratory: On nasal cannula, not in resp distress, +mild basilar crackles, no wheezing Cardiovascular: RRR S1 S2 Gastrointestinal (Abdomen): Abdomen is not distended, soft, non-tender to palpation, no guarding,normal bowel sounds Musculoskeletal: No pedal edema Genitourinary:No CVA tenderness Skin: warm, dry Neurologic: lethargic, opens eyes to voice briefly, moves very little, tries to follow commands somewhat, does not speak much Results & Data Results & Data Vital Signs (Past 12 Hours) Vital Signs Temp Pulse Pulse Resp BP BP Pulse Ox 05/25/24 08:00 71 18 101/60 100 05/25/24 07:30 72 17 109/57 L 100 05/25/24 07:00 74 24 116/59 L 100 05/25/24 06:46 75 19 107/54 L 98 05/25/24 06:13 73 18 100 05/25/24 06:13 74 18 100 05/25/24 06:02 76 18 124/67 96 05/25/24 05:00 74 17 114/73 99 05/25/24 04:33 75 17 100 05/25/24 04:30 70 05/25/24 04:03 72 17 114/55 L 99 05/25/24 04:00 111/57 L 05/25/24 04:00 71 22 111/57 L 99 05/25/24 03:30 72 22 106/55 L 99 05/25/24 03:00 73 18 118/51 L 98 05/25/24 02:30 71 21 107/60 98 05/25/24 02:28 69 20 100 05/25/24 01:58 100 05/25/24 01:57 78 28 H 104/76 87 L 05/24/24 23:19 70 05/24/24 22:19 73 18 100 05/24/24 21:53 05/24/24 21:53 05/24/24 21:53 05/24/24 21:53 36.6 C 78 21 126/56 L 100 Pulse Ox O2 Del Method O2 Del Method O2 Flow Rate O2 Flow Rate FiO2 05/25/24 08:00 Nasal Cannula 2 05/25/24 07:30 Nasal Cannula 2 05/25/24 07:00 Nasal Cannula 2 05/25/24 06:46 Nasal Cannula 2 05/25/24 06:13 30 05/25/24 06:13 BiPAP 30 05/25/24 06:02 Nasal Cannula 2 05/25/24 05:00 Nasal Cannula 2 05/25/24 04:33 Nasal Cannula 2 05/25/24 04:30 05/25/24 04:03 Nasal Cannula 2 05/25/24 04:00 05/25/24 04:00 Nasal Cannula 2 05/25/24 03:30 Nasal Cannula 2 05/25/24 03:00 Nasal Cannula 2 05/25/24 02:30 Nasal Cannula 2 05/25/24 02:28 Nasal Cannula 3 05/25/24 01:58 Nasal Cannula 2 05/25/24 01:57 Room Air 05/24/24 23:19 05/24/24 22:19 Nasal Cannula 2 05/24/24 21:53 Nasal Cannula 2 05/24/24 21:53 Nasal Cannula 2 05/24/24 21:53 100 Nasal Cannula 2 05/24/24 21:53 Nasal Cannula 2 Laboratory Results 05/25/24 05/25/24 05/25/24 Range/Units 06:10 05:49 02:39 WBC 8.87 (4.8-10.8) K/ul RBC 2.91 L (4.20-5.40) M/uL Hgb 9.2 L 8.3 L (12.0-16.0) g/dl Hct 27.6 L 25.4 L (37.0-47.0) % MCV 87.3 (80.0-100.0) fL MCH 28.5 (25.0-34.0) pg MCHC 32.7 (32.0-36.0) g/dL RDW Std Deviation 41.0 (36.4-46.3) fL RDW Coeff of Chucky 12.9 (11.5-14.5) % Plt Count 137 (130-400) K/uL MPV 10.2 (9.4-12.4) fL Immature Gran % (Auto) 0.8 % Neut % (Auto) 90.6 % Lymph % (Auto) 4.3 % [place] % (Auto) 3.6 % Eos % (Auto) 0.5 % Baso % (Auto) 0.2 % Neut # (Auto) 8.04 H (1.40-6.50) K/uL Lymph # (Auto) 0.38 L (1.20-3.40) K/uL [place] # (Auto) 0.32 (0.11-0.59) K/uL Eos # (Auto) 0.04 (0.00-0.50) K/uL Baso # (Auto) 0.02 (0.00-0.20) K/uL Immature Gran # (Auto) 0.07 (0.01-0.20) K/uL PT (9.0-12.0) Seconds INR (0.9-1.1) APTT 36 H (21-31) Seconds PTT Ratio 1.3 VBG pH 7.32 L 7.29 L (7.36-7.41) VBG pCO2 48 49 (38-50) mmHg VBG pO2 33 27 mmHg VBG HCO3 25 24 mmol/L VBG O2 Saturation < 60.0 < 60.0 % VBG Base Excess -1.8 -3.4 mEq/L Sodium 131 L (136-145) mmol/L Potassium 3.8 D (3.5-5.1) mmol/L Chloride 100 (98-107) mmol/L Carbon Dioxide 24 (21-32) mmol/L Anion Gap 7 (3-11) BUN 26 H (6-23) mg/dl Creatinine 0.96 (0.6-1.2) mg/dl Est Cr Clr Drug Dosing 43.1 eGFR 63.65 BUN/Creatinine Ratio 27.1 H (10-20) Glucose 120 H (70-99(Fasting)) mg/dl POC Glucose 124 H (70-99) mg/dl Osmolality (280-300) mOsm/kg Lactate (0.4-2.0) mmol/L Calcium 8.5 L (8.6-10.3) mg/dl Magnesium 2.0 (1.7-2.4) mg/dl Total Bilirubin 1.0 D (0.2-1.0) mg/dl AST 18 (13-39) U/L ALT 13 (7-52) U/L Alkaline Phosphatase 103 (34-104) U/L Ammonia 15.0 L (18-72) umol/L Troponin I High Sens (0-14) pg/ml B-Natriuretic Peptide 119 H (0-100) pg/ml Total Protein 6.4 (6.0-8.3) gm/dl Albumin 3.0 L (3.4-5.0) gm/dl Globulin 3.4 (2.5-4.0) gm/dl Albumin/Globulin Ratio 0.9 (0.9-2) TSH (0.300-4.500) uIu/ml Free T4 (0.61-1.60) ng/dl Urine Color Urine Appearance (Clear) Urine pH (4.5-7.5) Ur Specific [place] (1.000-1.030) Urine Protein (Negative) Urine Glucose (UA) (Negative) Urine Ketones (Negative) Urine Blood (Negative) Urine Nitrite (Negative) Urine Bilirubin (Negative) Urine Urobilinogen (Negative) Ur Leukocyte Esterase (Negative) Urine WBC (Auto) (0-5) /hpf Urine RBC (Auto) (0-2) /hpf U Hyaline Cast (Auto) (0-2) /lpf U Epithel Cells (Auto) (0-2) /hpf Urine Bacteria (Auto) (None Seen) Urine Osmolality (500-800) mOsm/kg Ur Random Sodium mmol/L Adenovirus (PCR) (NotDetected) B. pertussis DNA (PCR) (NotDetected) B.parapertussis DNA PCR (NotDetected) C. pneumoniae DNA (PCR) (NotDetected) Coronavirus OC43 (PCR) (NotDetected) Coronavirus HKU1 (PCR) (NotDetected) Coronavirus 229E (PCR) (NotDetected) SARS-CoV-2 (PCR) (NotDetected) Coronavirus NL63 (PCR) (NotDetected) Human Metapneumovir PCR (NotDetected) Influenza Type A (PCR) (NotDetected) Influenza Type B (PCR) (NotDetected) Urine Legionella Ag M. pneumoniae (PCR) (NotDetected) Parainfluenza 1 (PCR) (NotDetected) Parainfluenza 2 (PCR) (NotDetected) Parainfluenza 3 (PCR) (NotDetected) Parainfluenza 4 (PCR) (NotDetected) RSV (PCR) (NotDetected) Entero/Rhino (PCR) (NotDetected) Blood Type A Positive Antibody Screen NEGATIVE 05/25/24 05/24/24 05/24/24 Range/Units 01:52 Unknown 20:54 WBC (4.8-10.8) K/ul RBC (4.20-5.40) M/uL Hgb (12.0-16.0) g/dl Hct (37.0-47.0) % MCV (80.0-100.0) fL MCH (25.0-34.0) pg MCHC (32.0-36.0) g/dL RDW Std Deviation (36.4-46.3) fL RDW Coeff of Chucky (11.5-14.5) % Plt Count (130-400) K/uL MPV (9.4-12.4) fL Immature Gran % (Auto) % Neut % (Auto) % Lymph % (Auto) % [place] % (Auto) % Eos % (Auto) % Baso % (Auto) % Neut # (Auto) (1.40-6.50) K/uL Lymph # (Auto) (1.20-3.40) K/uL [place] # (Auto) (0.11-0.59) K/uL Eos # (Auto) (0.00-0.50) K/uL Baso # (Auto) (0.00-0.20) K/uL Immature Gran # (Auto) (0.01-0.20) K/uL PT (9.0-12.0) Seconds INR (0.9-1.1) APTT (21-31) Seconds PTT Ratio VBG pH (7.36-7.41) VBG pCO2 (38-50) mmHg VBG pO2 mmHg VBG HCO3 mmol/L VBG O2 Saturation % VBG Base Excess mEq/L Sodium (136-145) mmol/L Potassium (3.5-5.1) mmol/L Chloride (98-107) mmol/L Carbon Dioxide (21-32) mmol/L Anion Gap (3-11) BUN (6-23) mg/dl Creatinine (0.6-1.2) mg/dl Est Cr Clr Drug Dosing eGFR BUN/Creatinine Ratio (10-20) Glucose (70-99(Fasting)) mg/dl POC Glucose (70-99) mg/dl Osmolality (280-300) mOsm/kg Lactate (0.4-2.0) mmol/L Calcium (8.6-10.3) mg/dl Magnesium (1.7-2.4) mg/dl Total Bilirubin (0.2-1.0) mg/dl AST (13-39) U/L ALT (7-52) U/L Alkaline Phosphatase (34-104) U/L Ammonia (18-72) umol/L Troponin I High Sens 13.2 (0-14) pg/ml B-Natriuretic Peptide (0-100) pg/ml Total Protein (6.0-8.3) gm/dl Albumin (3.4-5.0) gm/dl Globulin (2.5-4.0) gm/dl Albumin/Globulin Ratio (0.9-2) TSH (0.300-4.500) uIu/ml Free T4 1.41 (0.61-1.60) ng/dl Urine Color Yellow Urine Appearance Clear (Clear) Urine pH 5.5 (4.5-7.5) Ur Specific [place] > 1.045 H (1.000-1.030) Urine Protein 1+ H (Negative) Urine Glucose (UA) Negative (Negative) Urine Ketones Negative (Negative) Urine Blood Negative (Negative) Urine Nitrite Positive A (Negative) Urine Bilirubin Negative (Negative) Urine Urobilinogen Negative (Negative) Ur Leukocyte Esterase Trace H (Negative) Urine WBC (Auto) 0-5 (0-5) /hpf Urine RBC (Auto) 0-2 (0-2) /hpf U Hyaline Cast (Auto) 3-5 H (0-2) /lpf U Epithel Cells (Auto) 0-2 (0-2) /hpf Urine Bacteria (Auto) 2+ H (None Seen) Urine Osmolality 448 L (500-800) mOsm/kg Ur Random Sodium 12 mmol/L Adenovirus (PCR) Not Detected (NotDetected) B. pertussis DNA (PCR) Not Detected (NotDetected) B.parapertussis DNA PCR Not Detected (NotDetected) C. pneumoniae DNA (PCR) Not Detected (NotDetected) Coronavirus OC43 (PCR) Not Detected (NotDetected) Coronavirus HKU1 (PCR) Not Detected (NotDetected) Coronavirus 229E (PCR) Not Detected (NotDetected) SARS-CoV-2 (PCR) Not Detected (NotDetected) Coronavirus NL63 (PCR) Not Detected (NotDetected) Human Metapneumovir PCR Not Detected (NotDetected) Influenza Type A (PCR) Not Detected (NotDetected) Influenza Type B (PCR) Not Detected (NotDetected) Urine Legionella Ag Pending M. pneumoniae (PCR) Not Detected (NotDetected) Parainfluenza 1 (PCR) Not Detected (NotDetected) Parainfluenza 2 (PCR) Not Detected (NotDetected) Parainfluenza 3 (PCR) Not Detected (NotDetected) Parainfluenza 4 (PCR) Not Detected (NotDetected) RSV (PCR) Not Detected (NotDetected) Entero/Rhino (PCR) Not Detected (NotDetected) Blood Type Antibody Screen 05/24/24 Range/Units 16:40 WBC 11.17 H (4.8-10.8) K/ul RBC 3.65 L (4.20-5.40) M/uL Hgb 11.0 L (12.0-16.0) g/dl Hct 31.7 L (37.0-47.0) % MCV 86.8 (80.0-100.0) fL MCH 30.1 (25.0-34.0) pg MCHC 34.7 (32.0-36.0) g/dL RDW Std Deviation 40.6 (36.4-46.3) fL RDW Coeff of Chucky 12.7 (11.5-14.5) % Plt Count 160 (130-400) K/uL MPV 10.2 (9.4-12.4) fL Immature Gran % (Auto) 1.0 % Neut % (Auto) 89.7 % Lymph % (Auto) 4.9 % [place] % (Auto) 4.3 % Eos % (Auto) 0.0 % Baso % (Auto) 0.1 % Neut # (Auto) 10.02 H (1.40-6.50) K/uL Lymph # (Auto) 0.55 L (1.20-3.40) K/uL [place] # (Auto) 0.48 (0.11-0.59) K/uL Eos # (Auto) 0.00 (0.00-0.50) K/uL Baso # (Auto) 0.01 (0.00-0.20) K/uL Immature Gran # (Auto) 0.11 (0.01-0.20) K/uL PT 11.5 (9.0-12.0) Seconds INR 1.1 (0.9-1.1) APTT (21-31) Seconds PTT Ratio VBG pH (7.36-7.41) VBG pCO2 (38-50) mmHg VBG pO2 mmHg VBG HCO3 mmol/L VBG O2 Saturation % VBG Base Excess mEq/L Sodium 130 L (136-145) mmol/L Potassium 4.8 (3.5-5.1) mmol/L Chloride 96 L (98-107) mmol/L Carbon Dioxide 25 (21-32) mmol/L Anion Gap 9 (3-11) BUN 24 H (6-23) mg/dl Creatinine 1.00 (0.6-1.2) mg/dl Est Cr Clr Drug Dosing Not Reportable eGFR 60.61 BUN/Creatinine Ratio 24.0 H (10-20) Glucose 146 H (70-99(Fasting)) mg/dl POC Glucose (70-99) mg/dl Osmolality 281 (280-300) mOsm/kg Lactate 1.5 (0.4-2.0) mmol/L Calcium 9.4 (8.6-10.3) mg/dl Magnesium 2.1 (1.7-2.4) mg/dl Total Bilirubin 1.9 H (0.2-1.0) mg/dl AST 24 (13-39) U/L ALT 18 (7-52) U/L Alkaline Phosphatase 140 H (34-104) U/L Ammonia (18-72) umol/L Troponin I High Sens 14.1 H (0-14) pg/ml B-Natriuretic Peptide (0-100) pg/ml Total Protein 7.9 (6.0-8.3) gm/dl Albumin 3.7 (3.4-5.0) gm/dl Globulin 4.2 H (2.5-4.0) gm/dl Albumin/Globulin Ratio 0.9 (0.9-2) TSH 0.339 (0.300-4.500) uIu/ml Free T4 (0.61-1.60) ng/dl Urine Color Urine Appearance (Clear) Urine pH (4.5-7.5) Ur Specific [place] (1.000-1.030) Urine Protein (Negative) Urine Glucose (UA) (Negative) Urine Ketones (Negative) Urine Blood (Negative) Urine Nitrite (Negative) Urine Bilirubin (Negative) Urine Urobilinogen (Negative) Ur Leukocyte Esterase (Negative) Urine WBC (Auto) (0-5) /hpf Urine RBC (Auto) (0-2) /hpf U Hyaline Cast (Auto) (0-2) /lpf U Epithel Cells (Auto) (0-2) /hpf Urine Bacteria (Auto) (None Seen) Urine Osmolality (500-800) mOsm/kg Ur Random Sodium mmol/L Adenovirus (PCR) (NotDetected) B. pertussis DNA (PCR) (NotDetected) B.parapertussis DNA PCR (NotDetected) C. pneumoniae DNA (PCR) (NotDetected) Coronavirus OC43 (PCR) (NotDetected) Coronavirus HKU1 (PCR) (NotDetected) Coronavirus 229E (PCR) (NotDetected) SARS-CoV-2 (PCR) (NotDetected) Coronavirus NL63 (PCR) (NotDetected) Human Metapneumovir PCR (NotDetected) Influenza Type A (PCR) (NotDetected) Influenza Type B (PCR) (NotDetected) Urine Legionella Ag M. pneumoniae (PCR) (NotDetected) Parainfluenza 1 (PCR) (NotDetected) Parainfluenza 2 (PCR) (NotDetected) Parainfluenza 3 (PCR) (NotDetected) Parainfluenza 4 (PCR) (NotDetected) RSV (PCR) (NotDetected) Entero/Rhino (PCR) (NotDetected) Blood Type Antibody Screen Medications Administered Current Inpatient Medications Acetaminophen (Acetaminophen 325 Mg Tab) 650 mg PO Q4H PRN PRN Reason: Pain or Fever Stop: 06/23/24 21:05 Last Admin: 05/24/24 21:42 Dose: 650 mg Albuterol (Albuterol 0.083% Nebu Soln 3 Ml Vial) 2.5 mg NEB Q6H PRN; Protocol PRN Reason: Shortness Of Breath Or Wheezing Stop: 06/23/24 21:05 Last Admin: 05/24/24 22:18 Dose: 2.5 mg Albuterol (Albut/Ipratrop 3mg/0.5mg Neb 3 Ml Vial) 3 ml NEB QIDR ARTIE; Protocol Stop: 06/24/24 06:59 Last Admin: 05/25/24 06:09 Dose: 3 ml Atorvastatin Calcium (Atorvastatin 40 Mg Tab) 80 mg PO HS [facility] Stop: 06/23/24 21:05 Last Admin: 05/24/24 23:11 Dose: 80 mg Carvedilol (Carvedilol 12.5 Mg Tab) 12.5 mg PO BIDM ARTIE Stop: 06/24/24 07:59 Last Admin: 05/25/24 08:02 Dose: Not Given Folic Acid (Folic Acid 1 Mg Tab) 1 mg PO QAM [facility] Stop: 06/24/24 08:59 Ertapenem (Invanz 1000mg) 1,000 mg in 10 mls @ 2 mls/min IV Q24H ARTIE Stop: 06/01/24 05:59 Last Admin: 05/25/24 05:56 Dose: 2 mls/min Doxycycline Hyclate 100 mg/ (Dextrose) 100 mls @ 50 mls/hr IV Q12H ARTIE Stop: 05/27/24 08:59 Thiamine HCl 200 mg/ Sodium (Chloride) 52 mls @ 210 mls/hr IV NOW STA Stop: 05/25/24 09:27 Folic Acid 1 mg/ Syringe 10 mls @ 5 mls/min IV NOW STA Stop: 05/25/24 09:14 Isosorbide Mononitrate (Isosorbide [place] Extended Rel 60 Mg Tabcr) 120 [facility] Stop: 06/24/24 08:59 Levothyroxine Sodium (Levothyroxine Sodium 50 Mcg Tablet) 50 mcg PO DAILYBB ARTIE Stop: 06/24/24 06:29 Last Admin: 05/25/24 05:34 Dose: 50 mcg Magnesium Oxide (Magnesium Oxide 400 Mg Tab) 400 mg PO DAILY ARTIE Stop: 06/24/24 08:59 Multivitamins (Multivitamin Tab) 1 tab PO QAM [facility] Stop: 06/24/24 08:59 Ondansetron HCl (Ondansetron Inj 2 Mg/Ml 2 Ml Vial) 4 mg IV Q6H PRN PRN Reason: Nausea Stop: 06/23/24 21:05 Prednisone (Prednisone 20 Mg Tab) 20 mg PO DAILY ARTIE Stop: 05/30/24 08:59 Thiamine HCl (Thiamine Hcl 100 Mg Tab) 100 mg PO QAM [facility] Stop: 06/25/24 08:59
[2024-05-25] MEDS: DOXYCYCLINE HYCLATE 100 MG in DEXTROSE 5% MINI-B 100 ML IV SCH (10:22)
[2024-05-25 10:23] LABS: Base Excess VBG -1.5 mEq/L; HCO3 VBG 24 mmol/L; Oxygen Saturation VBG 91.6 %; PCO2 VBG 44 mmHg (38-50); PO2 VBG 58 mmHg; pH VBG 7.35 (7.36-7.41)
[2024-05-25] MEDS: FOLIC ACID 1 MG in SYRINGE 9.8 ML IV STA (11:17)
--- NOTE | 2024-05-25 11:19 | Pulmonary Consultation ---
Date of Consultation May 25, 2024 Assessment & Plan (1) Pneumonia: (2) Interstitial lung disease: (3) Acute respiratory failure with hypoxia: (4) Diarrhea: Plan CT chest 05/24/2024 personally reviewed: Motion degraded study The consolidative process appreciated in the right lower lobe Increased reticular marking appreciated bilaterally especially in the upper lobes Minimal mediastinal lymphadenopathy Patient does have history of honeycombing, increased reticular marking, goes more towards sarcoidosis like picture looking at the CAT scan of the chest 03/06/2024 -- Acute hypoxic hypercapnic respiratory failure Secondary to right lower lobe pneumonia --ILD Inclining more towards burnt out sarcoidosis like picture especially after looking at the CAT scan of the chest Following up with networks software consultant at [facility] -- Right lower lobe pulmonary nodule Was appreciated on CT chest 03/06/2024 On the current CAT scan patient has significant consolidative process Would recommend to have repeat CAT scan of the chest done in 8 weeks to follow- up on that Legionella is a differential and would recommend a medication to cover it Usually levofloxacin is a drug of choice followed by azithromycin and alternatives include doxycycline -- Prolonged QTc QTc 500 on 05/24/2024 Avoid QT prolonging medication Plan: Recommend swallow eval to rule out aspiration Patient's QTc is prolonged likely from underlying QT prolonging medication, given the history of diarrhea, Legionella is a differential and would recommend a medication to cover it Usually levofloxacin is a drug of choice followed by azithromycin and alternatives include doxycycline Case was discussed with pharmacist as well as primary team Please note the above document was generated using voice recognition software. It may contain grammatical, syntax or spelling errors.Any formal questions or concerns about the content, text or information contained within the body of this dictation should be directly addressed to the provider for clarification. History of Present Illness Attending Physician: Ancelmo Ledezma MD History of Present Illness 68-year-old female was admitted to the hospital for diarrhea Past medical history: ILD, A-fib, systolic CHF, hypertension, dyslipidemia, dementia Pulmonary consulted for hypercapnia and hypoxia At the time of examination patient was saturating 93-94% on 2 L nasal cannula She was not in any respite distress. She did seem restless and tried to get out of the bed multiple times to go to the commode She was able to answer questions appropriately when asked repeatedly. She denied any chest pain She has been complaining of diarrhea for approximately 3 weeks She has been having difficulty swallowing for a while, has a feeling that something is stuck in her mouth and throat whenever she eats It could be solids or liquids Denies any fever but there is subjective chills No headache or blurry vision There is no personal or family history of any autoimmune disease especially like lupus Social history: Lifetime non-smoker No birds at home Allergies Allergy/AdvReac Type Severity Reaction Status Date / Time latex Allergy Intermediate HIVES Verified 05/20/24 10:09 adhesive Allergy Mild SKIN Verified 05/20/24 10:09 IRRITATION penicillin V Allergy Unknown CAN'T Verified 05/20/24 10:09 REMEMBER olanzapine [From Zyprexa] AdvReac Intermediate lethargy Verified 05/25/24 07:13 aspirin AdvReac Mild STOMACH Verified 05/20/24 10:09 UPSET Home Medications Medication Instructions Recorded Confirmed Type nitroglycerin 0.4 mg sublingual 0.4 mg sublingual DIRECTED PRN 06/16/18 05/24/24 History tablet (Nitrostat) Chest Pain atorvastatin 80 mg tablet 80 mg PO HS 03/12/21 05/24/24 History acetaminophen 500 mg tablet 1,000 mg PO AMHS 02/15/23 05/24/24 History (Tylenol Extra Strength) aspirin 81 mg tablet,delayed 81 mg PO QAM 04/28/23 05/24/24 History release magnesium oxide 400 mg PO QAM 04/28/23 05/24/24 History alendronate 70 mg tablet 70 mg PO .QWEEKLY 03/06/24 05/24/24 History gabapentin 100 mg capsule 100 mg PO HS 03/06/24 05/24/24 History isosorbide mononitrate 120 mg 120 mg PO QAM 03/06/24 05/24/24 History tablet,extended release 24 hr metformin 500 mg tablet,extended 500 mg PO DAILY 03/06/24 05/24/24 History release 24 hr levothyroxine 50 mcg capsule 50 mcg PO DAILY 03/28/24 05/24/24 History sacubitril 49 mg-valsartan 51 mg 1 tab PO BID #60 tabs 04/12/24 05/24/24 Rx tablet (Entresto) carvedilol 12.5 mg tablet 12.5 mg PO BIDM #60 tabs 05/05/24 05/24/24 Rx magnesium oxide 400 mg (241.3 mg 400 mg PO DAILY 05/24/24 05/24/24 History magnesium) tablet solifenacin 10 mg tablet 10 mg PO DAILY 05/24/24 05/24/24 History Patient History Medical History Elevated troponin S/P right coronary artery (RCA) stent placement (2015) History of placement of stent in LAD coronary artery (2008) History of placement of stent in LAD coronary artery (2019) Hypomagnesemia Acute hypokalemia Non-ST elevation LA (NSTEMI) Pneumonia Acid reflux disease with ulcer Alcohol abuse, unspecified Anxiety state, unspecified Anxiety disorder Atrial fibrillation Coronary artery disease Cardiac arrest Cardiomyopathy Congestive heart failure, unspecified Congestive cardiomyopathy Cor athrscl-uns vessel Depressive disorder, not elsewhere classified Dysphagia, oropharyngeal phase Fecal incontinence Goiter Celia's thyroiditis Other and unspecified hyperlipidemia Ocular hypertension, unspecified eye Lumbago Lumbar compression fracture Old myocardial infarct Postmenopausal atrophic vaginitis Subclinical hypothyroidism Type 2 diabetes mellitus Unknown whether patient has any health problems Urinary tract infection FREQUENT Cancer SKIN CANCER Hypertension Anxiety GERD (gastroesophageal reflux disease) HLD (hyperlipidemia) CAD (coronary artery disease) Surgical History History of appendectomy History of cardiac cath 1 STENT (2015 @ [facility]) History of esophagogastroduodenoscopy (EGD) History of colonoscopy History of tonsillectomy S/P placement of cardiac pacemaker ~15-20 YEARS AGO[address] FOLLOWS WITH DR RUBI AND LAST CHECKED 4 MONTHS AGO History of cholecystectomy Family History Mother Family history of diabetes mellitus Blind Hearing loss Hypertension Allergies Asthma Sister Family history of diabetes mellitus Coronary heart disease Father No problems noted. Denies family history of No family history of adverse response to anesthesia No family history of bleeding disorder Heart disease Cancer Stroke Social History Smoking Status: Never smoker Tobacco Type: Cigarettes Second Hand Exposure: No; Do You Dip or Chew Tobacco: No; Hx Alcohol Use: Yes Alcohol type: beer and hard liquor Alcohol Intake Frequency: 2-3 x/Week Hx Substance Use: No Preferred Language: Greenlandic Communication Ability: Effective Field Sampling Technician Required: No Beliefs That Will Affect Care: None marital status: Current Living Situation: Spouse How many Children do You have: 1 Feels Safe at Home: Yes Assistive Devices: None Review of Systems 2 Review of Systems: All systems reviewed & are unremarkable except as noted in HPI & below Physical Exam 2 Physical Exam: Constitutional: No acute distress HEENT: EOMI, PERRLA Respiratory system: Decreased air entry bilaterally, more decreased on the right, no wheeze, no rhonchi, positive crackles appreciated bilaterally posteriorly and anteriorly CVS: S1-S2 positive, no murmurs or gallops Abdomen: Soft, nontender, nondistended, positive bowel sounds x4 Extremities: +2 pulses bilaterally radialis/ dorsalis pedis, no cyanosis, no edema Neuro: Awake alert oriented to self and place Psych: Normal mood and affect G/U: No Jiang Skin: no rashes, warm and dry Lymphatic: no cervical or axillary lymphadenopathy Results & Data Results & Data Vital Signs (Past 12 Hours) Vital Signs Pulse Pulse Resp BP BP Pulse Ox O2 Del Method 05/25/24 11:00 68 17 113/60 100 Nasal Cannula 05/25/24 10:53 69 18 98 Nasal Cannula 05/25/24 10:30 70 19 117/62 100 Nasal Cannula 05/25/24 10:00 71 16 106/54 L 99 Nasal Cannula 05/25/24 09:30 80 17 122/62 98 Nasal Cannula 05/25/24 09:00 73 18 102/58 L 100 Nasal Cannula 05/25/24 08:30 73 18 111/59 L 99 Nasal Cannula 05/25/24 08:00 71 18 101/60 100 Nasal Cannula 05/25/24 07:30 72 17 109/57 L 100 Nasal Cannula 05/25/24 07:00 74 24 116/59 L 100 Nasal Cannula 05/25/24 06:46 75 19 107/54 L 98 Nasal Cannula 05/25/24 06:13 73 18 100 05/25/24 06:13 74 18 100 BiPAP 05/25/24 06:02 76 18 124/67 96 Nasal Cannula 05/25/24 05:00 74 17 114/73 99 Nasal Cannula 05/25/24 04:33 75 17 100 Nasal Cannula 05/25/24 04:30 70 11/20/24 04:03 72 17 114/55 L 99 Nasal Cannula 05/25/24 04:00 111/57 L 05/25/24 04:00 71 22 111/57 L 99 Nasal Cannula 05/25/24 03:30 72 22 106/55 L 99 Nasal Cannula 05/25/24 03:00 73 18 118/51 L 98 Nasal Cannula 05/25/24 02:30 71 21 107/60 98 Nasal Cannula 05/25/24 02:28 69 20 100 Nasal Cannula 05/25/24 01:58 100 Nasal Cannula 05/25/24 01:57 78 28 H 104/76 87 L Room Air 05/24/24 23:19 70 O2 Flow Rate FiO2 05/25/24 11:00 2 05/25/24 10:53 2 05/25/24 10:30 2 05/25/24 10:00 2 05/25/24 09:30 2 05/25/24 09:00 2 05/25/24 08:30 2 05/25/24 08:00 2 05/25/24 07:30 2 05/25/24 07:00 2 05/25/24 06:46 2 05/25/24 06:13 30 05/25/24 06:13 30 05/25/24 06:02 2 05/25/24 05:00 2 05/25/24 04:33 2 05/25/24 04:30 05/25/24 04:03 2 05/25/24 04:00 05/25/24 04:00 2 05/25/24 03:30 2 05/25/24 03:00 2 05/25/24 02:30 2 05/25/24 02:28 3 05/25/24 01:58 2 05/25/24 01:57 05/24/24 23:19 Laboratory Results 05/25/24 06:10 05/25/24 02:39 PG Care Time/CCT Total # of Minutes Spent Total Time Spent with Patient: Total time spent is greater than 50% in coordination of care (as documented) at patient's floor/unit and/or counseling patient: Coding Level of Care Code 92726 INT INP/OBS CARE 3/75MIN Diagnoses Pneumonia J18.9 Interstitial lung disease J84.9 Acute respiratory failure with hypoxia J96.01 Diarrhea R19.7
[2024-05-25] MEDS: THIAMINE HCL 200 MG in SODIUM CHLORIDE 0.9% 50 ML IV STA (11:22)
[2024-05-25] MEDS ORDERED: GABAPENTIN 400 MG CAP PO SCH (12:00)
[2024-05-25] MEDS: POTASSIUM CHLORIDE / WTR 10 MEQ/100 ML PLCT IV SCH (14:34)
[2024-05-25] MEDS: MAGNESIUM SULFATE / D5W 1 GM/100 ML BAG IV ONE (14:35)
[2024-05-25] MEDS: POTASSIUM CHLORIDE CRTAB 20 MEQ TABCR PO STA (16:46)
--- NOTE | 2024-05-26 05:54 | Electrocardiogram Report ---
Test Reason : Blood Pressure : */* mmHG Vent. Rate : 86 BPM Atrial Rate : 86 BPM P-R Int : 128 ms QRS Dur : 120 ms QT Int : 418 ms P-R-T Axes : 30 174 -1 degrees QTcB Int : 500 ms Atrial-sensed ventricular-paced rhythm Abnormal ECG When compared with ECG of 14-Apr-2024 18:24, Vent. rate has increased by 9 bpm Confirmed by Gianni Pepper ([id number]) on 05/26/2024 5:54:39 AM Referred By: REFERRED SELF Confirmed By: Gianni Pepper
[2024-05-26] MEDS ORDERED: GABAPENTIN 400 MG CAP PO SCH (06:00)
[2024-05-26 07:29] LABS: Hematocrit (blood only) 27.5 % (37.0-47.0); Hemoglobin 9.1 g/dl (12.0-16.0); Mean Corpuscular Hemoglobin 28.6 pg (25.0-34.0); Mean Corpuscular Hgb Conc 33.1 g/dL (32.0-36.0); Mean Corpuscular Volume 86.5 fL (80.0-100.0); Platelet Count 197 K/uL (130-400); RDW Coefficient of Variation 12.8 % (11.5-14.5); RDW Standard Deviation 40.6 fL (36.4-46.3); Red Blood Count 3.18 M/uL (4.20-5.40); White Blood Count 8.64 K/ul (4.8-10.8)
[2024-05-26 07:52] LABS: BUN Creatinine Ratio 28.6 (10-20); Calcium 8.8 mg/dl (8.6-10.3); Creatinine Clr Calc Pharmacy 53.8 ml/min; Magnesium 2.6 mg/dl (1.7-2.4); Phosphorus 1.9 mg/dl (2.5-4.9); Potassium 4.5 mmol/L (3.5-5.1)
[2024-05-26] MEDS: predniSONE 20 MG TAB PO SCH (08:03)
--- NOTE | 2024-05-26 08:38 | Pulmonology Progress Note ---
Date of Service May 26, 2024 Assessment & Plan (1) Pneumonia: (2) Interstitial lung disease: (3) Acute respiratory failure with hypoxia: (4) Diarrhea: Plan CT chest 05/24/2024 personally reviewed: Motion degraded study The consolidative process appreciated in the right lower lobe Increased reticular marking appreciated bilaterally especially in the upper lobes Minimal mediastinal lymphadenopathy Patient does have history of honeycombing, increased reticular marking, goes more towards sarcoidosis like picture looking at the CAT scan of the chest 03/06/2024 -- Acute hypoxic hypercapnic respiratory failure Secondary to right lower lobe pneumonia --ILD Inclining more towards burnt out sarcoidosis like picture especially after looking at the CAT scan of the chest Following up with tie up worker at [facility] -- Right lower lobe pulmonary nodule Was appreciated on CT chest 03/06/2024 On the current CAT scan patient has significant consolidative process Would recommend to have repeat CAT scan of the chest done in 8 weeks to follow- up on that Legionella is in differential and would recommend a medication to cover it Usually levofloxacin is a drug of choice followed by azithromycin and alternatives include doxycycline -- Prolonged QTc QTc 525 on 05/26/2024, patient does have paced rhythm, usually the corrected QTc in such cases would be lower. Avoid QT prolonging medication Plan: Recommend swallow eval to rule out aspiration Phosphorus being replaced Patient will be started on ciprofloxacin 500 mg twice daily for at least 6 more days. If the urine Legionella antigen is negative then he can be changed to cefdinir or cefpodoxime Continue with Rocephin as Cipro does not have good strep coverage Case was discussed with RN, pharmacist as well as primary team Please note the above document was generated using voice recognition software. It may contain grammatical, syntax or spelling errors.Any formal questions or concerns about the content, text or information contained within the body of this dictation should be directly addressed to the provider for clarification. Admission and Anticipated Discharge Date Admission Date: May 24, 2024 Subjective Patient seen and examined at bedside. No acute distress, no adverse events overnight States that her shortness of breath is improved. Denies any chest pain No diarrhea since coming to the hospital Was saturating 91-93% on room air Fair appetite, no nausea vomiting Review of Systems 2 Review of Systems: All systems reviewed & are unremarkable except as noted in Subjective Physical Exam 2 Physical Exam: Constitutional: No acute distress HEENT: EOMI, PERRLA Respiratory system: Decreased air entry bilaterally, no wheeze, no rhonchi, positive crackles appreciated bilaterally posteriorly and anteriorly, more on the right side posteriorly CVS: S1-S2 positive, no murmurs or gallops Abdomen: Soft, nontender, nondistended, positive bowel sounds x4 Extremities: +2 pulses bilaterally radialis/ dorsalis pedis, no cyanosis, no edema Neuro: Awake alert oriented to self and place Psych: Normal mood and affect G/U: No Jiang Skin: no rashes, warm and dry Lymphatic: no cervical or axillary lymphadenopathy Results & Data Results & Data Vital Signs (Past 12 Hours) Vital Signs Temp Pulse Resp BP Pulse Ox O2 Del Method O2 Flow Rate 05/26/24 07:19 73 19 91 Nasal Cannula 1 05/26/24 07:11 63 20 127/66 91 Nasal Cannula 05/26/24 03:13 36.7 C 61 16 128/64 99 Nasal Cannula 2 05/25/24 22:38 36.7 C 61 17 123/73 98 Nasal Cannula 2 Laboratory Results 05/26/24 06:33 05/26/24 06:33 PG Care Time/CCT Total # of Minutes Spent Total Time Spent with Patient: Total time spent is greater than 50% in coordination of care (as documented) at patient's floor/unit and/or counseling patient: Coding Level of Care Code 74278 SUB INP/OBS CARE 3/50MIN Diagnoses Pneumonia J18.9 Interstitial lung disease J84.9 Acute respiratory failure with hypoxia J96.01 Diarrhea R19.7
[2024-05-26] MEDS: POT PHOSPHATE MONOBASIC W/ SOD TAB PO SCH (09:20)
[2024-05-26] MEDS: THIAMINE HCL 100 MG TAB PO SCH (09:20)
--- NOTE | 2024-05-26 11:24 | Hospitalist Progress Note ---
Date of Service May 26, 2024 Assessment & Plan (1) Hypoxia: (2) Pneumonia: (3) Interstitial lung disease: (4) Diarrhea: (5) Coronary artery disease: (6) Type 2 diabetes mellitus: Plan This is a 68-year-old female with significant past medical history of ILD, traction bronchiectasis, PAF, chronic systolic CHF, history of complete heart block status post permanent pacemaker, biventricular ICD in situ, HTN, HLD, dementia, depression, history of alcohol abuse who presents to ED secondary to chronic diarrhea x 1 week. Was sent from PCP as she was saturating there at 79% Hypoxia Right lower lobe pneumonia - concern for aspiration admitted to telemetry patient with history of traction bronchiectasis, obtained CT chest to further clarify lung consolidation 1. Right lower lobe consolidation consistent with pneumonia. 2. Chronic fibrotic changes. 3. Trace right pleural effusion. history of interstitial lung disease and follows Dr. Hoda gill of [facility] Empirically tx with IV Rocephin, Azithromycin and flagyl on admission -> changed overnight to Ertapenem and doxy obtain speech eval to r/o aspiration as states pt freq has trouble swallowing wean O2 as able, incentive spirometry, prn nebs urine legionella ordered Overnight wheezing, sats in 80s on RA, pt restless- received solumedrol, nebs, low dose prednisone Ertapenem for probable aspiration pneumonia/complicated UTI, Doxycycline in pl [place] of azithromycin given QTc of 500 on review of admission EKG Pulmonary medicine consulted and discussed with Per pulm- -- Acute hypoxic hypercapnic respiratory failure Secondary to right lower lobe pneumonia --ILD Inclining more towards burnt out sarcoidosis like picture especially after looking at the CAT scan of the chest Following up with forest pathology associate professor at [facility] -- Right lower lobe pulmonary nodule Was appreciated on CT chest 03/06/2024 On the current CAT scan patient has significant consolidative process Would recommend to have repeat CAT scan of the chest done in 8 weeks to follow- up on that Patient will be started on ciprofloxacin 500 mg twice daily for at least 6 more days. If the urine Legionella antigen is negative then it can be changed to cefdinir or cefpodoxime Encephalopathy - resolved ? possibly from zyprexa CT head negative for cva or hemorrhage ammonia 15 cont. thiamine, folic acid Chronic diarrhea reports on/off diarrhea for the past year pt and poor historian appears pt mostly incontinent of urine and stool, typically has 2 loose BM daily stop metformin obtain stool studies, stool for cdiff - not obtained yet if negative consider bulking agent Possible Cystitis ct scan concern for cystitis await urine culture, empirically on IV rocephin -> changed to ertapenem, as above ucultx inconclusive Hyponatremia poor intake, obtain urine studies, serum osm NSS x 1 L CAD Chronic Systolic CHF hx of CHB s/p PPM BIV ICD present HTN/HLD follows [facility] cardiology given BP on lower side hold entresto continue asa, imdur, coreg, statin when able to take PP again Hypothyroidism: TSH borderline low 0.3, T4 1.3 wnl, follow up as outpt T2DM: a1c 6.2, continue diet control, Stop metformin at discharge due to ongoing diarrhea Hx of alcohol abuse mild dementia mood stable, worsening confusion due to underlying illness Chronic Anemia: anemia panel 1 year ago was unrevealing, possibly in setting of chronic disease DVT ppx: SQ Heparin FULL CODE PCP: Luzma Yu Dispo: PCU Admission and Anticipated Discharge Date Admission Date: May 24, 2024 Subjective Pt seen in follow up of hypoxia, pna, then developed ams hx of ILD CT head obtained negative for cva or hemorrhage Today pt is much improved, she does not remember much of yesterday. Currently she is sitting up and eating. She is awake, alert and answers appropriately. Denies fever, chills, chest pain, + cough, some sputum clear per pt Review of Systems Review of Systems: All systems reviewed & are unremarkable except as noted in Subjective Physical Exam Physical Exam: General: thin, Chronically ill appearing F in NAD Eyes: PERRL, conjunctivae normal, anicteric sclerae ENMT: +Hearing deficits Respiratory: not in resp distress, +basilar crackles R>L, minimal exp. wheezing Cardiovascular: RRR S1 S2 Gastrointestinal (Abdomen): Abdomen is not distended, soft, non-tender to palpation, no guarding,normal bowel sounds Musculoskeletal: No pedal edema Genitourinary:No CVA tenderness Skin: warm, dry Neurologic: awake, alert, oriented, answers appropriately, speech fluent, moves extremities Results & Data Results & Data Vital Signs (Past 12 Hours) Vital Signs Temp Pulse Pulse Resp BP Pulse Ox O2 Del Method 05/26/24 10:43 36.6 C 65 19 123/71 97 Room Air 05/26/24 08:00 Nasal Cannula 05/26/24 07:19 73 19 91 Nasal Cannula 05/26/24 07:11 63 20 127/66 91 Nasal Cannula 05/26/24 05:53 60 05/26/24 03:13 36.7 C 61 16 128/64 99 Nasal Cannula O2 Flow Rate 05/26/24 10:43 05/26/24 08:00 2 05/26/24 07:19 1 05/26/24 07:11 05/26/24 05:53 05/26/24 03:13 2 Laboratory Results 05/26/24 05/25/24 Range/Units 06:33 16:03 WBC 8.64 (4.8-10.8) K/ul RBC 3.18 L (4.20-5.40) M/uL Hgb 9.1 L (12.0-16.0) g/dl Hct 27.5 L (37.0-47.0) % MCV 86.5 (80.0-100.0) fL MCH 28.6 (25.0-34.0) pg MCHC 33.1 (32.0-36.0) g/dL RDW Std Deviation 40.6 (36.4-46.3) fL RDW Coeff of Chucky 12.8 (11.5-14.5) % Plt Count 197 (130-400) K/uL MPV 10.0 (9.4-12.4) fL Sodium 137 (136-145) mmol/L Potassium 4.5 (3.5-5.1) mmol/L Chloride 105 (98-107) mmol/L Carbon Dioxide 25 (21-32) mmol/L Anion Gap 7 (3-11) BUN 22 (6-23) mg/dl Creatinine 0.77 (0.6-1.2) mg/dl Est Cr Clr Drug Dosing 53.8 ml/min eGFR 82.93 BUN/Creatinine Ratio 28.6 H (10-20) Glucose 124 H (70-99(Fasting)) mg/dl Calcium 8.8 (8.6-10.3) mg/dl Phosphorus 1.9 L D 3.2 (2.5-4.9) mg/dl Magnesium 2.6 H (1.7-2.4) mg/dl Medications Administered Current Inpatient Medications Acetaminophen (Acetaminophen 325 Mg Tab) 650 mg PO Q4H PRN PRN Reason: Pain or Fever Stop: 06/23/24 21:05 Last Admin: 05/24/24 21:42 Dose: 650 mg Albuterol (Albuterol 0.083% Nebu Soln 3 Ml Vial) 2.5 mg NEB Q6H PRN; Protocol PRN Reason: Shortness Of Breath Or Wheezing Stop: 06/23/24 21:05 Last Admin: 05/24/24 22:18 Dose: 2.5 mg Albuterol (Albut/Ipratrop 3mg/0.5mg Neb 3 Ml Vial) 3 ml NEB TIDR [facility]; Protocol Stop: 06/24/24 20:59 Last Admin: 05/26/24 07:18 Dose: 3 ml Atorvastatin Calcium (Atorvastatin 40 Mg Tab) 80 mg PO HS [facility] Stop: 06/23/24 21:05 Last Admin: 05/25/24 20:28 Dose: 80 mg Carvedilol (Carvedilol 12.5 Mg Tab) 12.5 mg PO BIDM [facility] Stop: 06/24/24 07:59 Last Admin: 05/26/24 08:03 Dose: 12.5 mg Ciprofloxacin (Ciprofloxacin 500 Mg Tab) 500 mg PO BID [facility]; Protocol Stop: 05/31/24 21:01 Folic Acid (Folic Acid 1 Mg Tab) [facility] [place] Stop: 06/24/24 08:59 Last Admin: 05/26/24 08:02 Dose: 1 mg Ertapenem (Invanz 1000mg) 1,000 mg in 10 mls @ 2 mls/min IV Q24H [facility] Stop: 06/01/24 05:59 Last Admin: 05/26/24 05:56 Dose: 2 mls/min Ceftriaxone Sodium (Rocephin) 2,000 mg in 50 mls @ 100 mls/hr IV Q24H [facility] Stop: 05/31/24 11:29 Isosorbide Mononitrate (Isosorbide [place] Extended Rel 60 Mg Tabcr) [facility] [place] Stop: 06/24/24 08:59 Last Admin: 05/26/24 08:02 Dose: 120 mg Levothyroxine Sodium (Levothyroxine Sodium 50 Mcg Tablet) [facility] Stop: 06/24/24 06:29 Last Admin: 05/26/24 05:56 Dose: 50 mcg Multivitamins (Multivitamin Tab) 1 tab PO QAM [facility] Stop: 06/24/24 08:59 Last Admin: 05/26/24 08:03 Dose: 1 tab Potassium Phosphate (Pot Phosphate Monobasic W/ Sod Tab) 2 tab PO QID [facility] Stop: 05/28/24 08:59 Last Admin: 05/26/24 09:20 Dose: 2 tab Prednisone (Prednisone 20 Mg Tab) 20 mg PO DAILY [facility] Stop: 05/30/24 08:59 Last Admin: 05/26/24 08:03 Dose: 20 mg Thiamine HCl (Thiamine Hcl 100 Mg Tab) 100 mg PO QAM [facility] Stop: 06/25/24 08:59 Last Admin: 05/26/24 09:20 Dose: 100 mg
--- NOTE | 2024-05-26 11:40 | Fluoroscopy Report ---
MODIFIED BARIUM SWALLOW CLINICAL HISTORY: Evaluate for silent aspiration. COMPARISON STUDY: Modified barium swallow February 17, 2023. FLUOROSCOPY TIME: 1.20 minutes. ka,r: 6.90 mGy. TECHNIQUE: A modified barium swallow was performed in conjunction with Speech Pathology. The patient ingested varying consistencies of barium containing material. Video fluoroscopy was performed. FINDINGS: No tracheal aspiration was identified with thin liquids by spoon, cup or straw. Epiglottic inversion was normal. There was no aspiration with nectar thick liquids, pudding or cracker and puddi ng consistencies. Moderate esophageal dysmotility was incidentally noted. IMPRESSION: 1. No tracheal aspiration. 2. Full recommendations by Speech pathology to follow. ACT 112: Negative or not required by law. Electronically signed by: Tejinder Archer M.D. 05/26/2024 11:39 AM
[2024-05-26] MEDS: CIPROFLOXACIN 500 MG TAB PO ONE (11:56)
[2024-05-26] MEDS ORDERED: cefTRIAXone SODIUM 2,000 MG/50 ML BAG IV SCH (14:00)
[2024-05-26] MEDS: CIPROFLOXACIN 500 MG TAB PO SCH (20:07)
--- NOTE | 2024-05-26 23:19 | Electrocardiogram Report ---
Test Reason : Blood Pressure : */* mmHG Vent. Rate : 69 BPM Atrial Rate : 69 BPM P-R Int : 152 ms QRS Dur : 204 ms QT Int : 490 ms P-R-T Axes : 24 -50 106 degrees QTcB Int : 525 ms Atrial-sensed ventricular-paced rhythm Biventricular pacemaker detected Abnormal ECG When compared with ECG of 24-May-2024 16:32, Vent. rate has decreased by 17 bpm Confirmed by Gianni Pepper ([id number]) on 05/26/2024 11:18:55 PM Referred By: REFERRED SELF Confirmed By: Gianni Pepper
[2024-05-27 07:22] LABS: Hemoglobin 9.1 g/dl (12.0-16.0); Mean Corpuscular Hemoglobin 28.3 pg (25.0-34.0); Mean Corpuscular Hgb Conc 32.5 g/dL (32.0-36.0); Mean Platelet Volume 9.5 fL (9.4-12.4); Platelet Count 232 K/uL (130-400); RDW Coefficient of Variation 12.6 % (11.5-14.5); RDW Standard Deviation 40.7 fL (36.4-46.3); Red Blood Count 3.22 M/uL (4.20-5.40); White Blood Count 6.93 K/ul (4.8-10.8)
[2024-05-27 07:43] LABS: BUN Creatinine Ratio 24.7 (10-20); Calcium 9.6 mg/dl (8.6-10.3); Creatinine Clr Calc Pharmacy 44.5 ml/min; Magnesium 1.7 mg/dl (1.7-2.4); Phosphorus 4.4 mg/dl (2.5-4.9); Potassium 4.2 mmol/L (3.5-5.1)
--- NOTE | 2024-05-27 08:02 | Hospitalist Progress Note ---
Date of Service May 27, 2024 Assessment & Plan (1) Hypoxia: (2) Pneumonia: (3) Interstitial lung disease: (4) Diarrhea: (5) Coronary artery disease: (6) Type 2 diabetes mellitus: Plan This is a 68-year-old female with significant past medical history of ILD, traction bronchiectasis, PAF, chronic systolic CHF, history of complete heart block status post permanent pacemaker, biventricular ICD in situ, HTN, HLD, dementia, depression, history of alcohol abuse who presents to ED secondary to chronic diarrhea x 1 week. Was sent from PCP as she was saturating there at 79% Hypoxia Right lower lobe pneumonia - concern for aspiration admitted to telemetry patient with history of traction bronchiectasis, obtained CT chest to further clarify lung consolidation 1. Right lower lobe consolidation consistent with pneumonia. 2. Chronic fibrotic changes. 3. Trace right pleural effusion. history of interstitial lung disease and follows Dr. Hoda gill of [facility] Empirically tx with IV Rocephin, Azithromycin and flagyl on admission -> changed overnight to Ertapenem and doxy obtain speech eval to r/o aspiration as states pt freq has trouble swallowing wean O2 as able, incentive spirometry, prn nebs urine legionella ordered Overnight wheezing, sats in 80s on RA, pt restless- received solumedrol, nebs, low dose prednisone Ertapenem for probable aspiration pneumonia/complicated UTI, Doxycycline in pl [place] of azithromycin given QTc of 500 on review of admission EKG Pulmonary medicine consulted and discussed with Per pulm- -- Acute hypoxic hypercapnic respiratory failure Secondary to right lower lobe pneumonia --ILD Inclining more towards burnt out sarcoidosis like picture especially after looking at the CAT scan of the chest Following up with building inspector at [facility] -- Right lower lobe pulmonary nodule Was appreciated on CT chest 03/06/2024 On the current CAT scan patient has significant consolidative process Would recommend to have repeat CAT scan of the chest done in 8 weeks to follow- up on that 05/27 Chest x-ray from today shows improvement in the right lower lobe opacity compared to the time of presentation. Swallow eval was negative for aspiration Continue with Cipro for 6 more days, can change ertapenem to cefuroxime 500 mg twice daily for 6 more days Encephalopathy - resolved ? possibly from zyprexa CT head negative for cva or hemorrhage ammonia 15 cont. thiamine, folic acid Chronic diarrhea reports on/off diarrhea for the past year pt and poor historian appears pt mostly incontinent of urine and stool, typically has 2 loose BM daily stop metformin stool studies, stool for cdiff - negative start probiotics Possible Cystitis ct scan concern for cystitis await urine culture, empirically on IV rocephin -> changed to ertapenem, as above ucultx inconclusive Hyponatremia poor intake, obtain urine studies, serum osm NSS x 1 L CAD Chronic Systolic CHF hx of CHB s/p PPM BIV ICD present HTN/HLD follows [facility] cardiology given BP on lower side hold entresto continue asa, imdur, coreg, statin Hypothyroidism: TSH borderline low 0.3, T4 1.3 wnl, follow up as outpt T2DM: a1c 6.2, continue diet control, Stop metformin at discharge due to ongoing diarrhea Hx of alcohol abuse mild dementia mood stable, worsening confusion due to underlying illness Chronic Anemia: anemia panel 1 year ago was unrevealing, possibly in setting of chronic disease DVT ppx: SQ Heparin FULL CODE PCP: Luzma Yu Dispo: PCU Admission and Anticipated Discharge Date Admission Date: May 24, 2024 Subjective Pt seen in follow up of hypoxia, pna, then developed ams hx of ILD Currently laying in bed in NAD She is awake, alert and answers appropriately. Denies fever, chills, chest pain, + cough, some sputum clear per pt Seen by pulm Review of Systems Review of Systems: All systems reviewed & are unremarkable except as noted in Subjective Physical Exam Physical Exam: General: thin, Chronically ill appearing F in NAD Eyes: PERRL, conjunctivae normal, anicteric sclerae ENMT: +Hearing deficits Respiratory: not in resp distress, +basilar crackles R>L, minimal exp. wheezing Cardiovascular: RRR S1 S2 Gastrointestinal (Abdomen): Abdomen is not distended, soft, non-tender to palpation, no guarding,normal bowel sounds Musculoskeletal: No pedal edema Genitourinary:No CVA tenderness Skin: warm, dry Neurologic: awake, alert, oriented, answers appropriately, speech fluent, moves extremities Results & Data Results & Data Vital Signs (Past 12 Hours) Vital Signs Temp Pulse Resp BP BP Pulse Ox O2 Del Method 05/27/24 07:47 36.3 C L 66 16 166/85 H 95 Room Air 11/22/24 07:36 72 18 96 Room Air 05/27/24 07:32 Room Air 05/27/24 02:47 36.8 C 65 16 138/71 93 Room Air 05/26/24 22:40 36.7 C 71 19 123/56 L 93 Room Air 05/26/24 21:15 Room Air 05/26/24 21:00 O2 Del Method O2 Flow Rate 05/27/24 07:47 05/27/24 07:36 05/27/24 07:32 05/27/24 02:47 05/26/24 22:40 05/26/24 21:15 05/26/24 21:00 Nasal Cannula 3 Laboratory Results 05/27/24 05/27/24 05/25/24 Range/Units Unknown 06:41 01:52 WBC 6.93 (4.8-10.8) K/ul RBC 3.22 L (4.20-5.40) M/uL Hgb 9.1 L (12.0-16.0) g/dl Hct 28.0 L (37.0-47.0) % MCV 87.0 (80.0-100.0) fL MCH 28.3 (25.0-34.0) pg MCHC 32.5 (32.0-36.0) g/dL RDW Std Deviation 40.7 (36.4-46.3) fL RDW Coeff of Chucky 12.6 (11.5-14.5) % Plt Count 232 (130-400) K/uL MPV 9.5 (9.4-12.4) fL Sodium 140 (136-145) mmol/L Potassium 4.2 (3.5-5.1) mmol/L Chloride 103 (98-107) mmol/L Carbon Dioxide 30 (21-32) mmol/L Anion Gap 7 (3-11) BUN 23 (6-23) mg/dl Creatinine 0.93 (0.6-1.2) mg/dl Est Cr Clr Drug Dosing 44.5 ml/min eGFR 66.12 BUN/Creatinine Ratio 24.7 H (10-20) Glucose 142 H (70-99(Fasting)) mg/dl Calcium 9.6 (8.6-10.3) mg/dl Phosphorus 4.4 D (2.5-4.9) mg/dl Magnesium 1.7 (1.7-2.4) mg/dl Stl C. cayetanensis PCR Not Detected (NotDetected) Stool Rotavirus A PCR Not Detected (NotDetected) Stl Adenov F 40/41 PCR Not Detected (NotDetected) Stool Astrovirus (PCR) Not Detected (NotDetected) Stool Campylobacter PCR Not Detected (NotDetected) Stl C. diff Tox B Gene Negative Cdiff Gene (Neg) Stool Cryptosporidium PCR Not Detected (NotDetected) Stl E.coli Shiga Tox PCR Not Detected (NotDetected) Stl Enterotoxigenic E PCR Not Detected (NotDetected) Stool EPEC (PCR) Not Detected (NotDetected) Stool EAEC (PCR) Not Detected (NotDetected) Stl E. histolytica PCR Not Detected (NotDetected) Stool Giardia Lamblia PCR Not Detected (NotDetected) Stool Salmonella PCR Not Detected (NotDetected) Stool Sapovirus (PCR) Not Detected (NotDetected) Stl P. shigelloides PCR Not Detected (NotDetected) Stl Shigella/EIEC PCR Not Detected (NotDetected) St Y.enterocolitica PCR Not Detected (NotDetected) Stool Vibrio (PCR) Not Detected (NotDetected) Stl Vibrio cholerae PCR Not Detected (NotDetected) Stl Norovirus GI/GII PCR Not Detected (NotDetected) Urine Legionella Ag SEE NOTE Medications Administered Current Inpatient Medications Acetaminophen (Acetaminophen 325 Mg Tab) 650 mg PO Q4H PRN PRN Reason: Pain or Fever Stop: 06/23/24 21:05 Last Admin: 05/24/24 21:42 Dose: 650 mg Albuterol (Albuterol 0.083% Nebu Soln 3 Ml Vial) 2.5 mg NEB Q6H PRN; Protocol PRN Reason: Shortness Of Breath Or Wheezing Stop: 06/23/24 21:05 Last Admin: 05/24/24 22:18 Dose: 2.5 mg Albuterol (Albut/Ipratrop 3mg/0.5mg Neb 3 Ml Vial) 3 ml NEB TIDR ARTIE; Protocol Stop: 06/24/24 20:59 Last Admin: 05/27/24 07:36 Dose: 3 ml Atorvastatin Calcium (Atorvastatin 40 Mg Tab) 80 mg PO HS [facility] Stop: 06/23/24 21:05 Last Admin: 05/26/24 20:07 Dose: 80 mg Carvedilol (Carvedilol 12.5 Mg Tab) 12.5 mg PO BIDM [facility] Stop: 06/24/24 07:59 Last Admin: 05/26/24 17:21 Dose: 12.5 mg Ciprofloxacin (Ciprofloxacin 500 Mg Tab) 500 mg PO BID [facility]; Protocol Stop: 05/31/24 21:01 Last Admin: 05/26/24 20:07 Dose: 500 mg Folic Acid (Folic Acid 1 Mg Tab) 1 mg PO QAM [facility] Stop: 06/24/24 08:59 Last Admin: 05/26/24 08:02 Dose: 1 mg Ertapenem (Invanz 1000mg) 1,000 mg in 10 mls @ 2 mls/min IV Q24H [facility] Stop: 06/01/24 05:59 Last Admin: 05/27/24 06:16 Dose: 2 mls/min Isosorbide Mononitrate (Isosorbide [place] Extended Rel 60 Mg Tabcr) [facility] Stop: 06/24/24 08:59 Last Admin: 05/26/24 08:02 Dose: 120 mg Levothyroxine Sodium (Levothyroxine Sodium 50 Mcg Tablet) 50 mcg PO DAILYBB [facility] Stop: 06/24/24 06:29 Last Admin: 05/27/24 06:15 Dose: 50 mcg Multivitamins (Multivitamin Tab) 1 tab PO QAM [facility] Stop: 06/24/24 08:59 Last Admin: 05/26/24 08:03 Dose: 1 tab Potassium Phosphate (Pot Phosphate Monobasic W/ Sod Tab) 2 tab PO QID [facility] Stop: 05/28/24 08:59 Last Admin: 05/26/24 20:08 Dose: 2 tab Prednisone (Prednisone 20 Mg Tab) 20 mg PO DAILY [facility] Stop: 05/30/24 08:59 Last Admin: 05/26/24 08:03 Dose: 20 mg Thiamine HCl (Thiamine Hcl 100 Mg Tab) 100 mg PO QAM [facility] Stop: 06/25/24 08:59 Last Admin: 05/26/24 09:20 Dose: 100 mg
[2024-05-27 08:20] LABS: Adenovirus F 40/41 PCR Not Detected (NotDetected); Astrovirus PCR Not Detected (NotDetected); Campylobacter PCR Not Detected (NotDetected); Cryptosporidium PCR Not Detected (NotDetected); Cyclospora cayetanensis PCR Not Detected (NotDetected); Entamoeba histolytica PCR Not Detected (NotDetected); Enteroaggregative E.coli(EAEC) Not Detected (NotDetected); Enteropathogenic E.coli (EPEC) Not Detected (NotDetected); Enterotoxigenic E.coli (ETEC) Not Detected (NotDetected); Giardia lamblia PCR Not Detected (NotDetected); Norovirus GI/GII PCR Not Detected (NotDetected); Plesiomonas shigelloides PCR Not Detected (NotDetected); Rotavirus A PCR Not Detected (NotDetected); Salmonella PCR Not Detected (NotDetected); Sapovirus PCR Not Detected (NotDetected); Shiga-like Toxin E.coli (STEC) Not Detected (NotDetected); Shigella/Enteroinvasive E.coli Not Detected (NotDetected); Vibrio cholerae PCR Not Detected (NotDetected); Vibrio species PCR Not Detected (NotDetected); Yersinia enterocolitica PCR Not Detected (NotDetected)
--- NOTE | 2024-05-27 09:21 | Pulmonology Progress Note ---
Date of Service May 27, 2024 Assessment & Plan (1) Pneumonia: (2) Interstitial lung disease: (3) Acute respiratory failure with hypoxia: (4) Diarrhea: Plan CT chest 05/24/2024 personally reviewed: Motion degraded study The consolidative process appreciated in the right lower lobe Increased reticular marking appreciated bilaterally especially in the upper lobes Minimal mediastinal lymphadenopathy Patient does have history of honeycombing, increased reticular marking, goes more towards sarcoidosis like picture looking at the CAT scan of the chest 03/06/2024 -- Acute hypoxic hypercapnic respiratory failure Secondary to right lower lobe pneumonia --ILD Inclining more towards burnt out sarcoidosis like picture especially after looking at the CAT scan of the chest Following up with technical proposal writer at [facility] -- Right lower lobe pulmonary nodule Was appreciated on CT chest 03/06/2024 On the current CAT scan patient has significant consolidative process Would recommend to have repeat CAT scan of the chest done in 8 weeks to follow- up on that Legionella is in differential and would recommend a medication to cover it Usually levofloxacin is a drug of choice followed by azithromycin and alternatives include doxycycline -- Prolonged QTc QTc 525 on 05/26/2024, patient does have paced rhythm, usually the corrected QTc in such cases would be lower. Avoid QT prolonging medication Admission and Anticipated Discharge Date Admission Date: May 24, 2024 Supervising Physician Co-Signing Physician Notes I saw and evaluated the patient with Robin Irving PA-C, and agree with findings and plan as documented in the note. Patient seen and examined at bedside. No acute distress, no adverse events overnight She stated that she is feeling much better. Shortness of breath is improved Denies any cough, no chest pain Was asking if she could go home Still complaining of loose stools. No blood in the stools Appetite is fair. No nausea or vomiting Constitutional: No acute distress HEENT: EOMI, PERRLA Respiratory system: Decreased air entry bilaterally, no wheeze, no rhonchi, positive crackles appreciated bilaterally posteriorly and anteriorly, more on the right side posteriorly CVS: S1-S2 positive, no murmurs or gallops Abdomen: Soft, nontender, nondistended, hyperactive bowel sounds x4 Extremities: +2 pulses bilaterally radialis/ dorsalis pedis, no cyanosis, no edema Neuro: Awake alert oriented to self, place and time Psych: Normal mood and affect G/U: No Jiang Plan: Chest x-ray from today shows improvement in the right lower lobe opacity compared to the time of presentation. Swallow eval was negative for aspiration Continue with Cipro for 6 more days, can change ertapenem to cefuroxime 500 mg twice daily for 6 more days Case was discussed with primary team No further recommendation from pulmonary perspective, will sign off Please call directly with any questions Please note the above document was generated using voice recognition software. It may contain grammatical, syntax or spelling errors.Any formal questions or concerns about the content, text or information contained within the body of this dictation should be directly addressed to the provider for clarification. Subjective Patient seen and evaluated at bedside. She had an uneventful night. She reports that her shortness of breath is improved. She does occasionally have a cough with production of clear sputum. She is saturating well on room air at this time. Review of Systems Review of Systems: As per HPI Physical Exam Physical Exam: VITAL SIGNS Vital signs and nursing notes were reviewed. GENERAL 68-year-old female appearing her stated age who is in no acute dis tress. Communicates well with provider and answers questions appropriately. SKIN Without rashes or lesions. NOSE Midline and without cyanosis. MOUTH/OROPHARYNX Without perioral cyanosis. NECK Neck with FROM. LUNGS Chest wall evaluation demonstrates normal chest wall A:P diameter. Auscultation reveals slight wheeze in the RIGHT upper lobe which clears with cough. No rales. CARDIAC RRR with S1/S2. No murmur, rubs, or gallops appreciated. EXTREMITIES Nail clubbing not present. No peripheral cyanosis. No pretibial edema present. +3/5 radial palpated throughout. PSYCH A&Ox3 and cooperates fully with examiner. Pt is very pleasant and interacts well with examiner. Skin: no rashes, warm and dry Lymphatic: no cervical or axillary lymphadenopathy Results & Data Results & Data Vital Signs (Past 12 Hours) Vital Signs Temp Pulse Resp BP BP Pulse Ox O2 Del Method 05/27/24 07:47 36.3 C L 66 16 166/85 H 95 Room Air 05/27/24 07:36 72 18 96 Room Air 05/27/24 07:32 Room Air 05/27/24 02:47 36.8 C 65 16 138/71 93 Room Air 05/26/24 22:40 36.7 C 71 19 123/56 L 93 Room Air PG Care Time/CCT Total # of Minutes Spent Total Time Spent with Patient: Total time spent is greater than 50% in coordination of care (as documented) at patient's floor/unit and/or counseling patient: Coding Level of Care Code 10908 SUB INP/OBS CARE 2/35MIN Diagnoses Pneumonia J18.9 Interstitial lung disease J84.9 Acute respiratory failure with hypoxia J96.01 Diarrhea R19.7
[2024-05-27] MEDS ORDERED: GABAPENTIN 400 MG CAP PO SCH (10:00)
--- NOTE | 2024-05-27 10:04 | XRay Report ---
XR chest 1V portable CLINICAL HISTORY: f/u COMPARISON STUDY: Chest CT May 24, 2024. Chest radiograph May 25, 2024. FINDINGS: A left subclavian pacer/AICD is in place. Cardiomediastinal silhouette is stable. Postopera tive findings within the spine are partially imaged. Interstitial thickening is present. Right lower lobe airspace opacity has improved. There is no pneumothorax or pleural effusion. No new sites of con solidation are present. IMPRESSION: 1. Right lower lobe consolidation consistent with pneumonia, better depicted on prior chest CT. This has improved since prior chest radiograph. 2. Interstitial lung disease. ACT 112: Negative or not required by law. Electronically signed by: Tejinder Archer M.D. 05/27/2024 10:01 AM
[2024-05-27 11:30] VITALS: TEMP 97.5
[2024-05-27 12:59] VITALS: RESP 18; O2SAT 92
--- NOTE | 2024-05-27 14:20 | Discharge Summary ---
Date of Service May 27, 2024 Admission HPI Per Admitting Provider This is a 68-year-old female with significant past medical history of ILD, traction bronchiectasis, PAF, chronic systolic CHF, history of complete heart block status post permanent pacemaker, biventricular ICD in situ, HTN, HLD, dementia, depression, history of alcohol abuse who presents to ED secondary to chronic diarrhea x 1 week. Of significance patient was seen in PCP office today. She was found to be hypoxic with a pulse ox of 79. It was recommended she seek ED for evaluation. Of significance she follows with [facility]ology Dr. Dailey. In regards to her ischemic cardiomyopathy. Hx obtained from pt, and chart review. She reports diarrhea x 3 weeks. at bedside states she getting, "weak as a kitten." Every time she tries to eat something it goes right through her. She denies any documented fever, but states she felt warm. Pt denies chest pain. She has a cough and produces clear sputum. also feels she isn't herself. She denies chills, sweats, n/v, change in urination. reports occasional trouble swallowing. When she tries to eat she starts gagging. She does not smoke, but has second hand exposure through . She occasionally drinks 1 alcoholic drink, but not daily. Admission Exam Per Admitting Provider General: Chronically ill appearing Eyes: PERRL, conjunctivae normal, not pale, anicteric sclerae, EOM intact bilaterally ENMT: +Hearing deficits Respiratory: On nasal cannula, not in resp distress, +basilar crackles Cardiovascular: RRR S1 S2 Gastrointestinal (Abdomen): Abdomen is not distended, soft, non-tender to palpation, no guarding, no palpable hepatosplenomegaly, normal bowel sounds Musculoskeletal: No pedal edema Genitourinary:No CVA tenderness Skin: No rash noted on gross inspection, No ulcers noted Neurologic: Alert and oriented to person and place only, No focal weakness, sensation grossly intact Psychiatric: Euthymic affect Principal Diagnosis Acute hypoxic hypercapnic respiratory failure Right lower lobe pneumonia Discharge Exam General: thin, Chronically ill appearing F in NAD Eyes: PERRL, conjunctivae normal, anicteric sclerae ENMT: +Hearing deficits Respiratory: not in resp distress, +basilar crackles R>L, minimal exp. wheezing Cardiovascular: RRR S1 S2 Gastrointestinal (Abdomen): Abdomen is not distended, soft, non-tender to palpation, no guarding,normal bowel sounds Musculoskeletal: No pedal edema Genitourinary:No CVA tenderness Skin: warm, dry Neurologic: awake, alert, oriented, answers appropriately, speech fluent, moves extremities Discharge Data Allergies Allergy/AdvReac Type Severity Reaction Status Date / Time latex Allergy Intermediate HIVES Verified 05/20/24 10:09 adhesive Allergy Mild SKIN Verified 05/20/24 10:09 IRRITATION penicillin V Allergy Unknown CAN'T Verified 05/20/24 10:09 REMEMBER olanzapine [From Zyprexa] AdvReac Intermediate lethargy Verified 05/25/24 07:13 aspirin AdvReac Mild STOMACH Verified 05/20/24 10:09 UPSET Consultations 05/24/24 18:47 ED Decision to Admit Stat 05/25/24 08:52 Consult Pulmonology Routine Ordered Studies 05/24/24 16:37 CT Abd and Pelvis [CT abd pelvis IV con only] Stat 1. Incompletely imaged consolidation in the right lower lobe and small adjacent pleural effusion most concerning for pneumonia. 2. Cystitis. 3. Indeterminant hypodense nodule in the right kidney is unchanged. If this has not been assessed with sonogram to confirm simple cystic nature, consider nonemergent renal ultrasound. 05/24/24 19:46 CT chest diagnostic wo con Stat 1. Right lower lobe consolidation consistent with pneumonia. 2. Chronic fibrotic changes. 3. Trace right pleural effusion. 05/25/24 06:19 CT head/brain wo con Stat 1. No hemorrhagic densities or evidence of recent ischemic insult, advised clinical correlation and MRI study (with diffusion) if clinically warranted 2. Small vessel ischemic vasculopathy-related changes in the form of diffuse periventricular and deep white matter hypodensity, with hypodensity of left anterior limb of internal capsule seen as well 3. Age-related involutional brain changes seen as a dilated ventricular system with prominent sulci and cisterns 4. Bilateral basal ganglia senile calcifications 05/26/24 11:00 Fluoro video [FL video swallow] Routine 1. No tracheal aspiration. Hospital Course (1) Hypoxia: (2) Pneumonia: (3) Interstitial lung disease: (4) Diarrhea: (5) Coronary artery disease: (6) Type 2 diabetes mellitus: Plan This is a 68-year-old female with significant past medical history of ILD, traction bronchiectasis, PAF, chronic systolic CHF, history of complete heart block status post permanent pacemaker, biventricular ICD in situ, HTN, HLD, dementia, depression, history of alcohol abuse who presents to ED secondary to chronic diarrhea x 1 week. Was sent from PCP as she was saturating there at 79% Hypoxia Right lower lobe pneumonia - concern for aspiration admitted to telemetry patient with history of traction bronchiectasis, obtained CT chest to further clarify lung consolidation 1. Right lower lobe consolidation consistent with pneumonia. 2. Chronic fibrotic changes. 3. Trace right pleural effusion. history of interstitial lung disease and follows Dr. Hoda gill of [facility] Empirically tx with IV Rocephin, Azithromycin and flagyl on admission -> changed overnight to Ertapenem and doxy obtain speech eval to r/o aspiration as states pt freq has trouble swallowing wean O2 as able, incentive spirometry, prn nebs urine legionella ordered Overnight wheezing, sats in 80s on RA, pt restless- received solumedrol, nebs, low dose prednisone Ertapenem for probable aspiration pneumonia/complicated UTI, Doxycycline in place of azithromycin given QTc of 500 on review of admission EKG Pulmonary medicine consulted and discussed with Per pultati- -- Acute hypoxic hypercapnic respiratory failure Secondary to right lower lobe pneumonia --ILD Inclining more towards burnt out sarcoidosis like picture especially after looking at the CAT scan of the chest Following up with head of mobile at [facility] -- Right lower lobe pulmonary nodule Was appreciated on CT chest 03/06/2024 On the current CAT scan patient has significant consolidative process Would recommend to have repeat CAT scan of the chest done in 8 weeks to follow- up on that 05/27 Chest x-ray from today shows improvement in the right lower lobe opacity compared to the time of presentation. Swallow eval was negative for aspiration Continue with Cipro for 6 more days, can change ertapenem to cefuroxime 500 mg twice daily for 6 more days Encephalopathy - resolved ? possibly from zyprexa CT head negative for cva or hemorrhage ammonia 15 cont. thiamine, folic acid Chronic diarrhea reports on/off diarrhea for the past year pt and poor historian appears pt mostly incontinent of urine and stool, typically has 2 loose BM daily stop metformin stool studies, stool for cdiff - negative start probiotics Possible Cystitis ct scan concern for cystitis await urine culture, empirically on IV rocephin -> changed to ertapenem, as above ucultx inconclusive Hyponatremia poor intake, obtain urine studies, serum osm NSS x 1 L CAD Chronic Systolic CHF hx of CHB s/p PPM BIV ICD present HTN/HLD follows [facility] cardiology given BP on lower side hold entresto continue asa, imdur, coreg, statin Hypothyroidism: TSH borderline low 0.3, T4 1.3 wnl, follow up as outpt T2DM: a1c 6.2, continue diet control, Stop metformin at discharge due to ongoing diarrhea Hx of alcohol abuse mild dementia mood stable, worsening confusion due to underlying illness Chronic Anemia: anemia panel 1 year ago was unrevealing, possibly in setting of chronic disease Total Time Total Time Spent Total Time Spent (In Minutes): 40 Discharge Plan Discharge Items Patient Disposition: Home - Home Health Services Reason For Visit: PNA, CHRONIC DIARRHEA Discharge Diagnosis: Acute hypoxic hypercapnic respiratory failure Right lower lobe pneumonia Activity: Per Instructions section Non-emergency contact: Primary Care Provider and [facility] Call non-emergency contact if: you have any medication questions and your symptoms worsen Follow-up/Referrals: Luzma Yu MD [Primary Care Provider] - Diet: Carb Consistent or DM2 Diet Texture: Easy to Chew Addtl Attending Provider Instructions: Follow up with primary care doctor and head of mobile. Finish antibiotic treatment with ciprofloxacin and cefuroxime as prescribed. Recommend taking probiotic and guaifenesin. Stop taking metformin given your ongoing diarrhea. Discuss alternatives with your primary care doctor. Pending Studies at Discharge: No Stand-Alone Forms: My [facility] [employer], Smoking Cessation Medications and DC Order Prescriptions: New guaifenesin [Mucinex] 600 mg Tablet Extended Release 12hr 600 mg PO Q12 Qty: 14 0RF multivitamin with folic acid [Daily-Nadir (with folic acid)] 400 mcg Tablet 1 tab PO QAM Qty: 30 0RF thiamine HCl (vitamin B1) 100 mg Tablet 100 mg PO QAM Qty: 30 0RF Advanced Probiotic 625 mg (10 billion cell) Capsule 1 cap PO DAILY Qty: 14 0RF cefuroxime axetil 500 mg tablet 500 mg PO BID 7 Days Qty: 14 0RF ciprofloxacin HCl 500 mg Tablet 500 mg PO BID 7 Days Qty: 14 0RF Continued levothyroxine 50 mcg capsule 50 mcg PO DAILY carvedilol 12.5 mg tablet 12.5 mg PO BIDM Qty: 60 1RF Entresto 49-51 mg tablet 1 tab PO BID Qty: 60 0RF nitroglycerin [Nitrostat] 0.4 mg Tablet, Sublingual 0.4 mg Sublingual DIRECTED PRN (Reason: Chest Pain) Rx Instructions: PLACE ONE TABLET UNDER THE TONGUE EVERY 5 MINUTES FOR UP TO 3 DOSES OVER 15 MINUTES IF NEEDED FOR CHEST PAIN. atorvastatin 80 mg tablet 80 mg PO HS acetaminophen [Tylenol Extra Strength] 500 mg Tablet 1,000 mg PO AMHS magnesium oxide 400 mg magnesium capsule 400 mg PO QAM aspirin 81 mg Tablet,Delayed Release (Dr/Ec) 81 mg PO QAM alendronate 70 mg tablet 70 mg PO .QWEEKLY isosorbide mononitrate 120 mg tablet extended release 24 hr 120 mg PO QAM gabapentin 100 mg capsule 100 mg PO HS metformin 500 mg tablet extended release 24 hr 500 mg PO DAILY magnesium oxide 400 mg (241.3 mg magnesium) tablet 400 mg PO DAILY solifenacin 10 mg tablet 10 mg PO DAILY Discharge Orders: Discharge Order (Routine); Ordered 05/27/24 Ordered By: Ancelmo Ledezma Admission Data Admit Date/Time: 05/24/24 18:56 Attending Provider: Ancelmo Ledezma Admit Provider: Jo Greer I. Primary Care Provider: Luzma Yu Other Providers: Jo Greer I.; Araceli Simons; [facility]
[2024-05-27] MEDS: ADVANCED PROBIOTIC 625 MG CAPSULE PO SCH (14:33)
[2024-05-27 14:42] VITALS: BP 123/56; PULSE 69
--- NOTE | 2024-05-27 14:50 | Electrocardiogram Report ---
Test Reason : Blood Pressure : */* mmHG Vent. Rate : 68 BPM Atrial Rate : 68 BPM P-R Int : 272 ms QRS Dur : 150 ms QT Int : 472 ms P-R-T Axes : 59 -45 129 degrees QTcB Int : 501 ms Atrial-sensed ventricular-paced rhythm with prolonged AV conduction Abnormal ECG When compared with ECG of 26-May-2024 09:21, No significant change was found Confirmed by Gianni Pepper ([id number]) on 05/27/2024 2:50:21 PM Referred By: REFERRED SELF Confirmed By: Gianni Pepper
[2024-05-27] MEDS ORDERED: guaiFENesin 600 MG TABCR PO SCH (21:00)
[2024-05-28] MEDS ORDERED: GABAPENTIN 400 MG CAP PO SCH (22:00)
== END 2024-05-27 15:15 | disposition home health service (06) | DRG 177 ==
LOC: ED 16:15 → SUATTDRO 18:56 → EDINP 18:56 → 2S 21:07

== ENCOUNTER 2024-07-26 15:08 | Inpatient (IN) ==
--- NOTE | 2024-07-26 15:18 | Emergency Department Note ---
Impression & Plan Seizure-like activity, Syncope, Pacemaker, Anemia ED Provider Note NAME: FESTUS SALMON AGE: 69 SEX: F : 1955 ARRIVES VIA: Ambulance INFORMANT: Patient, ED PROVIDER(S): Silas Werner MD CHIEF COMPLAINT: Seizure and syncope MEDICAL DECISION MAKING: Patient presents due to concern for syncope and possible seizure. Patient was laid with IV Keppra as the patient reports prior history of seizure. Blood work shows a mild leukopenia with white count 4.7 with a hemoglobin of 10.7. Patient's platelet count is unremarkable. Patient's kidney function is unremarkable LFTs and magnesium are normal. Patient was loaded with Keppra as a precaution. CT head screening chest x-ray also performed. I did receive a call from Roberto from [employer] who stated no events reported on the pacemaker but there were for signs concerning for possible volume overload. CT of the head negative. The patient's chest x-ray shows chronic interstitial lung markings although cannot exclude volume overload or pneumonia. Does not examine like volume overload but per the pacemaker interrogation certain parameters are concerning for possible volume overload. Given this the patient was ordered IV Lasix. Given the patient's reported seizure-like episode as well as the subsequent syncopal event there after to believe the patient would benefit from admission monitoring in light of the patient's significant heart disease. It is to be the on-call hospital service and the patient was admitted to medicine service. Discussion w/ other healthcare providers: Dahlia Vidal PA-C with Dr. Ledezma inpatient medicine service Prior /Outside records reviewed: I reviewed a prior echocardiogram report from March 2024 showed an EF of 30 to 35%. Hypokinesis of the mid LV segments. Differential diagnosis: Vasovagal event, dehydration, infection, hypoglycemia, electrolyte abnormalities, arrhythmia, pulmonary embolism, seizure among others were considered. Diagnostics, as interpreted by me: ECG: AV dual paced rhythm, rate of 61, wide QRS, left axis deviation. No obvious STEMI. Cardiac monitoring: An order was placed for continuous cardiac monitoring. The monitor shows a rate of 62 with paced rhythm. Patient was placed on pulse oximetry Medical decision rules: None Imaging studies: I informally interpreted the patient's chest x-ray with chronic and instructional markings with formal report to follow. HPI: Patient presents due to concern for seizure as well as possible syncopal event. The patient reportedly was having her hair brushed by home health at which point the patient subsequently had a shaking-like episode. The patient was in a chair did not fall to the ground. Patient did have a period of postictal but subsequently resolved. Patient subsequently passed out. No shaking-like send at that time. Prior history of seizures in the past but not currently on any antiepileptics. The patient's at bedside states that he had been giving her magnesium supplementation which was not about 4 to 5 months ago but states that when this happened before she was very low on her magnesium. Patient Nuys any tongue biting or incontinence. No head or neck pain. No slurred speech facial droop numbness tingling or focal weakness and no slurred speech. Patient denies any chest pains. She does have a pacemaker. Patient denies any decrease in sleep increasing anxiety and denies any alcohol tobacco or drug use. Has been also states that sometimes with these episodes have occurred in the past she has been near heat source and they do have a coal stove in their trailer. PAST MEDICAL HISTORY: See Below PAST SURGICAL HISTORY: See Below SOCIAL HISTORY: See Below HOME MEDICATIONS: See Below ALLERGIES: See Below VITALS: See Below PHYSICAL EXAMINATION: GENERAL: NAD, non-toxic. EYE EXAM: Normal conjunctiva. PERRL, no anisocoria and EOM's grossly intact w/o pain. OROPHARYNX: Moist mucus membranes, grossly normal dentition. NECK: Trachea midline, no stridor. Supple, no nuchal rigidity, no adenopathy, non-tender. No signs of meningismus. FROM of the neck with good chin to chest and neck extension. LUNGS: Clear to auscultation. Normal chest wall mechanics. HEART: NSR, no MRG. ABDOMEN: Abdomen soft, non-tender, no masses, no rebound or guarding. BACK: No CVA TTP. SKIN: No rashes and no bruising. UPPER EXTREMITIES: Upper extremities are grossly normal. LOWER EXTREMITIES: Grossly normal, no edema. NEURO EXAM: A&O x3, cranial nerves II-XII grossly intact, normal speech, moves all 4 extremities. Past Med/Surg History Problem List (Updated 07/26/24 @ 19:48 by Silas Werner MD) Anemia (Acute) Pacemaker (Acute) Syncope (Acute) Seizure-like activity (Acute) Acute respiratory failure with hypoxia Acute hyponatremia (Acute) Hypoxia (Acute) Pneumonia (Acute) Diarrhea (Acute) Interstitial lung disease S/P coronary artery stent placement Non-ST elevation SD (NSTEMI) (Acute) Chest pain (Acute) LBBB (left bundle branch block) Chest pain (Acute) Generalized weakness (Acute) Dyslipidemia Parainfluenza (Acute) Pneumonia (Acute) RAD (reactive airway disease) (Acute) UGIB (upper gastrointestinal bleed) SOB (shortness of breath) HBP (high blood pressure) GERD (gastroesophageal reflux disease) Osteoporosis AF (paroxysmal atrial fibrillation) Depression Diabetes mellitus, type 2 Fracture of L1 vertebra (Acute) Fall (Acute) Mixed hearing loss, bilateral Coronary artery disease Fatigue ICD (implantable cardioverter-defibrillator), biventricular, in situ Encounter for pre-operative examination Encounter for pre-operative examination Esophageal dysphagia Left knee pain (Acute) Left knee pain (Acute) Unstable angina Syncope (Acute) DVT prophylaxis Acute cystitis Ischemic cardiomyopathy Hypothyroidism PT DENIES. Medical History Elevated troponin S/P right coronary artery (RCA) stent placement (2015) History of placement of stent in LAD coronary artery (2008) History of placement of stent in LAD coronary artery (2019) Hypomagnesemia Acute hypokalemia Non-ST elevation SD (NSTEMI) Pneumonia Acid reflux disease with ulcer Alcohol abuse, unspecified Anxiety state, unspecified Anxiety disorder Atrial fibrillation Coronary artery disease Cardiac arrest Cardiomyopathy Congestive heart failure, unspecified Congestive cardiomyopathy Cor athrscl-uns vessel Depressive disorder, not elsewhere classified Dysphagia, oropharyngeal phase Fecal incontinence Goiter Celia's thyroiditis Other and unspecified hyperlipidemia Ocular hypertension, unspecified eye Lumbago Lumbar compression fracture Old myocardial infarct Postmenopausal atrophic vaginitis Subclinical hypothyroidism Type 2 diabetes mellitus Unknown whether patient has any health problems Urinary tract infection FREQUENT Cancer SKIN CANCER Hypertension Anxiety GERD (gastroesophageal reflux disease) HLD (hyperlipidemia) CAD (coronary artery disease) Surgical History History of appendectomy History of cardiac cath 1 STENT (2016 @ [facility]) History of esophagogastroduodenoscopy (EGD) History of colonoscopy History of tonsillectomy S/P placement of cardiac pacemaker ~15-20 [address] FOLLOWS WITH [address] NYDEGGER AND LAST CHECKED 4 MONTHS AGO History of cholecystectomy Family History Mother Family history of diabetes mellitus Blind Hearing loss Hypertension Allergies Asthma Sister Family history of diabetes mellitus Coronary heart disease Father No problems noted. Denies family history of No family history of adverse response to anesthesia No family history of bleeding disorder Heart disease Cancer Stroke Social History Smoking Status: Never smoker Tobacco Type: Cigarettes Second Hand Exposure: No; Do You Dip or Chew Tobacco: No; Hx Alcohol Use: Yes Alcohol type: beer and hard liquor Alcohol Intake Frequency: 2-3 x/Week Hx Substance Use: No Preferred Language: Kazakh Communication Ability: Effective Bung Sewer Required: No Beliefs That Will Affect Care: None marital status: Current Living Situation: Spouse How many Children do You have: 1 Feels Safe at Home: Yes Assistive Devices: Walker Allergies Allergies Allergy/AdvReac Type Severity Reaction Status Date / Time latex Allergy Intermediate HIVES Verified 06/13/24 15:15 adhesive Allergy Mild SKIN Verified 06/13/24 15:15 IRRITATION penicillin V Allergy Unknown CAN'T Verified 06/13/24 15:15 REMEMBER olanzapine [From Zyprexa] AdvReac Intermediate lethargy Verified 06/13/24 15:15 aspirin AdvReac Mild STOMACH Verified 06/13/24 15:15 UPSET Home Meds Home Medications Medication Instructions Recorded Confirmed nitroglycerin 0.4 mg sublingual 0.4 mg sublingual DIRECTED PRN 06/16/18 07/26/24 tablet (Nitrostat) Chest Pain atorvastatin 80 mg tablet 80 mg PO HS 03/12/21 07/26/24 acetaminophen 500 mg tablet 1,000 mg PO AMHS 02/15/23 07/26/24 (Tylenol Extra Strength) aspirin 81 mg tablet,delayed 81 mg PO QAM 04/28/23 07/26/24 release magnesium oxide 400 mg PO QAM 04/28/23 07/26/24 alendronate 70 mg tablet 70 mg PO .QWEEKLY 03/06/24 07/26/24 isosorbide mononitrate 120 mg 120 mg PO QAM 03/06/24 07/26/24 tablet,extended release 24 hr levothyroxine 50 mcg capsule 50 mcg PO DAILY 03/28/24 07/26/24 solifenacin 10 mg tablet 10 mg PO DAILY 05/24/24 07/26/24 Previous Rx's Medication Instructions Recorded multivitamin with folic acid 400 1 tab PO QAM #30 tabs 05/27/24 mcg tablet (Daily-Nadir (with folic acid)) thiamine HCl (vitamin B1) 100 mg 100 mg PO QAM #30 tabs 05/27/24 tablet carvedilol 12.5 mg tablet 12.5 mg PO BIDM #180 tabs 05/31/24 sacubitril 49 mg-valsartan 51 mg 1 tab PO BID #90 tabs 05/31/24 tablet (Entresto) Results & Data (ED) Vital Signs Vital Signs - 24 hr 07/26/24 15:22 07/26/24 16:07 07/26/24 16:56 Temperature 36.4 C L Temperature Source Oral Pulse Rate 77 58 L Pulse Rate [Apical] Respiratory Rate 22 Respiratory Effort / Characteristics Non-Labored Spontaneous Respiratory Depth Normal Respiratory Pattern Regular Blood Pressure 114/72 Blood Pressure [Right Arm] Blood Pressure Mean 86 Blood Pressure Mean [Right Arm] Blood Pressure Position Sitting Blood Pressure Position [Right Arm] Pulse Oximetry 98 98 Oxygen Delivery Method Room Air Room Air Sepsis Recent Fever Within 48 Hours No Sepsis New/Unexplained Change in Mental Status N/A Sepsis Action Taken by Nursing No Action Required 07/26/24 16:56 07/26/24 19:00 Temperature Temperature Source Pulse Rate Pulse Rate [Apical] 58 L 58 L Respiratory Rate 20 21 Respiratory Effort / Characteristics Non-Labored Spontaneous Non-Labored Spontaneous Respiratory Depth Normal Normal Respiratory Pattern Regular Regular Blood Pressure Blood Pressure [Right Arm] 125/83 124/62 Blood Pressure Mean Blood Pressure Mean [Right Arm] 97 82 Blood Pressure Position Blood Pressure Position [Right Arm] Semi-fowlers Semi-fowlers Pulse Oximetry 98 98 Oxygen Delivery Method Room Air Room Air Sepsis Recent Fever Within 48 Hours Sepsis New/Unexplained Change in Mental Status Sepsis Action Taken by Care Home Medications Current Medication List: was personally reviewed by me Laboratory Data Attestation: I reviewed the patient's lab results. 07/26/24 15:17 07/26/24 15:17 Lab Results 07/26/24 Range/Units 15:17 WBC 4.74 L (4.8-10.8) K/ul RBC 3.82 L (4.20-5.40) M/uL Hgb 10.7 L (12.0-16.0) g/dl Hct 32.9 L (37.0-47.0) % MCV 86.1 (80.0-100.0) fL MCH 28.0 (25.0-34.0) pg MCHC 32.5 (32.0-36.0) g/dL RDW Std Deviation 43.8 (36.4-46.3) fL RDW Coeff of Chucky 14.1 (11.5-14.5) % Plt Count 150 (130-400) K/uL MPV 10.6 (9.4-12.4) fL Immature Gran % (Auto) 0.2 % Neut % (Auto) 66.5 % Lymph % (Auto) 24.3 % Wood % (Auto) 5.7 % Eos % (Auto) 2.7 % Baso % (Auto) 0.6 % Neut # (Auto) 3.15 (1.40-6.50) K/uL Lymph # (Auto) 1.15 L (1.20-3.40) K/uL Wood # (Auto) 0.27 (0.11-0.59) K/uL Eos # (Auto) 0.13 (0.00-0.50) K/uL Baso # (Auto) 0.03 (0.00-0.20) K/uL Immature Gran # (Auto) 0.01 (0.01-0.20) K/uL PT 11.3 (9.0-12.0) Seconds INR 1.0 (0.9-1.1) APTT 22 (21-31) Seconds PTT Ratio 0.8 Sodium 138 (136-145) mmol/L Potassium 3.8 (3.5-5.1) mmol/L Chloride 105 (98-107) mmol/L Carbon Dioxide 29 (21-32) mmol/L Anion Gap 4 (3-11) BUN 18 (6-23) mg/dl Creatinine 0.93 (0.6-1.2) mg/dl Est Cr Clr Drug Dosing 43.9 ml/min eGFR 65.71 BUN/Creatinine Ratio 19.4 (10-20) Glucose 151 H (70-99(Fasting)) mg/dl Calcium 9.4 (8.6-10.3) mg/dl Magnesium 1.7 (1.7-2.4) mg/dl Total Bilirubin 0.8 (0.2-1.0) mg/dl AST 14 (13-39) U/L ALT 15 (7-52) U/L Alkaline Phosphatase 59 (34-104) U/L Troponin I High Sens 4.0 (0-14) pg/ml B-Natriuretic Peptide 197 H (0-100) pg/ml Total Protein 6.4 (6.0-8.3) gm/dl Albumin 3.9 (3.4-5.0) gm/dl Globulin 2.5 (2.5-4.0) gm/dl Albumin/Globulin Ratio 1.6 (0.9-2) Administered Medications Discontinued Medications Furosemide (Furosemide 40 Mg/4 Ml Vial) 40 mg IV ONE ONE Stop: 07/26/24 16:47 Last Admin: 07/26/24 17:10 Dose: 40 mg Documented By: KOMAL Magnesium Sulfate/Dextrose (Magnesium Sulfate / D5w) 1 gm in 100 mls @ 50 mls/hr IV ONE ONE Stop: 07/26/24 19:30 Last Admin: 07/26/24 17:45 Dose: 50 mls/hr Documented By: [facility] Potassium Chloride (K Alessandro / Wtr) 10 meq in 100 mls @ 100 mls/hr IV Q1H ARTIE Stop: 07/26/24 19:44 Last Admin: 07/26/24 19:15 Dose: 100 mls/hr Documented By: Infusion: 07/26/24 19:04 Dose: Infused Documented By: Admin: 07/26/24 17:45 Dose: 100 mls/hr Documented By: [facility] Levetiracetam (Levetiracetam 500 Mg/5 Ml Vial) 1,000 mg IV NOW STA Stop: 07/26/24 15:31 Last Admin: 07/26/24 15:40 Dose: 1,000 mg Documented By: [facility] Imaging Data Radiologist's Impression: Head CT 07/26/24 15:31 INDICATION: Syncope. COMPARISON: CT from 04/14/2024. TECHNIQUE: Axial CT images of the head were obtained without IV contrast. Coronal and sagittal reformations were reviewed. FINDINGS: Pizano-white differentiation is relatively preserved. No mass, mass effect or midline shift. Chronic ischemic white matter changes. Mild cortical atrophy. Basal ganglia calcifications. No evidence of acute large territorial infarction or acute intracranial hemorrhage. Ventricles appear similar in size. Basal cisterns are patent. No depressed calvarial fracture. IMPRESSION: No acute intracranial process. Electronically signed by Eliazar Lorenz 07-26-2024 5:04 PM Chest X-Ray 07/26/24 16:08 INDICATION: Chest pain. TECHNIQUE: Frontal radiograph of the chest. COMPARISON: Radiograph from 06/30/2024. FINDINGS: Mild cardiomegaly. Chronic appearing interstitial lung markings again noted. Difficult to exclude additional fluid overload or pneumonia. No pleural effusion or pneumothorax. No acute fracture. Left-sided pacemaker. IMPRESSION: Chronic appearing interstitial lung markings again noted. Difficult to exclude additional fluid overload or pneumonia. Electronically signed by Eliazar Lorenz 07-26-2024 4:35 PM Discharge Plan Visit Data Chief Complaint: Syncope Stated Complaint: SYNCOPE ED Provider: Silas Werner Discharge Problem: Seizure-like activity, Syncope, Pacemaker, Anemia Forms Stand Alone Forms: [facility] [place] [employer] Prescriptions Prescriptions: No Action carvedilol 12.5 mg tablet 12.5 mg PO BIDM Qty: 180 3RF Entresto 49-51 mg tablet 1 tab PO BID Qty: 90 3RF levothyroxine 50 mcg capsule 50 mcg PO DAILY nitroglycerin [Nitrostat] 0.4 mg Tablet, Sublingual 0.4 mg Sublingual DIRECTED PRN (Reason: Chest Pain) Rx Instructions: PLACE ONE TABLET UNDER THE TONGUE EVERY 5 MINUTES FOR UP TO 3 DOSES OVER 15 MINUTES IF NEEDED FOR CHEST PAIN. atorvastatin 80 mg tablet 80 mg PO HS acetaminophen [Tylenol Extra Strength] 500 mg Tablet 1,000 mg PO AMHS magnesium oxide 400 mg magnesium capsule 400 mg PO QAM aspirin 81 mg Tablet,Delayed Release (Dr/Ec) 81 mg PO QAM alendronate 70 mg tablet 70 mg PO .QWEEKLY isosorbide mononitrate 120 mg tablet extended release 24 hr 120 mg PO QAM solifenacin 10 mg tablet 10 mg PO DAILY multivitamin with folic acid [Daily-Nadir (with folic acid)] 400 mcg Tablet 1 tab PO QAM Qty: 30 0RF thiamine HCl (vitamin B1) 100 mg Tablet 100 mg PO QAM Qty: 30 0RF Referrals Referrals: Luzma Yu MD [Primary Care Provider] - Discharge Problem: Syncope Qualifiers: Syncope type: unspecified Qualified Code(s): R55 - Syncope and collapse Anemia Qualifiers: Anemia type: unspecified type Qualified Code(s): D64.9 - Anemia, unspecified
[2024-07-26] MEDS: levETIRAcetam 500 MG/5 ML VIAL IV STA (15:40)
[2024-07-26 15:44] LABS: Basophils # (auto) 0.03 K/uL (0.00-0.20); Basophils % (auto) 0.6 %; Eosinophils # (auto) 0.13 K/uL (0.00-0.50); Eosinophils % (auto) 2.7 %; Hematocrit (blood only) 32.9 % (37.0-47.0); Hemoglobin 10.7 g/dl (12.0-16.0); Immature Granulocytes # (auto) 0.01 K/uL (0.01-0.20); Immature Granulocytes % (auto) 0.2 %; Lymphocytes # (auto) 1.15 K/uL (1.20-3.40); Lymphocytes % (auto) 24.3 %; Mean Corpuscular Hgb Conc 32.5 g/dL (32.0-36.0); Mean Corpuscular Volume 86.1 fL (80.0-100.0); Mean Platelet Volume 10.6 fL (9.4-12.4); Monocytes # (auto) 0.27 K/uL (0.11-0.59); Monocytes % (auto) 5.7 %; Neutrophils # (auto) 3.15 K/uL (1.40-6.50); Neutrophils % (auto) 66.5 %; Platelet Count 150 K/uL (130-400); RDW Coefficient of Variation 14.1 % (11.5-14.5); RDW Standard Deviation 43.8 fL (36.4-46.3); Red Blood Count 3.82 M/uL (4.20-5.40); White Blood Count 4.74 K/ul (4.8-10.8)
[2024-07-26 16:01] LABS: Albumin Globulin Ratio 1.6 (0.9-2); Albumin Level 3.9 gm/dl (3.4-5.0); BUN Creatinine Ratio 19.4 (10-20); Bilirubin,Total 0.8 mg/dl (0.2-1.0); Calcium 9.4 mg/dl (8.6-10.3); Creatinine Clr Calc Pharmacy 43.9 ml/min; Globulin 2.5 gm/dl (2.5-4.0); Magnesium 1.7 mg/dl (1.7-2.4); Potassium 3.8 mmol/L (3.5-5.1); Total Protein 6.4 gm/dl (6.0-8.3)
[2024-07-26 16:11] LABS: Partial Thromboplastin Ratio 0.8; Partial Thromboplastin Time 22 Seconds (21-31); Prothrombin Time 11.3 Seconds (9.0-12.0)
--- NOTE | 2024-07-26 16:36 | XRay Report ---
INDICATION: Chest pain. TECHNIQUE: Frontal radiograph of the chest. COMPARISON: Radiograph from 06/30/2024. FINDINGS: Mild cardiomegaly. Chronic appearing interstitial lung markings again noted. Difficult to exclude additional fluid overload or pneumonia. No pleural effusion or pneumothorax. No acute fracture. Left-sided pacemaker. IMPRESSION: Chronic appearing interstitial lung markings again noted. Difficult to exclude additional fluid overload or pneumonia. Electronically signed by Eliazar Lorenz 07-26-2024 4:35 PM
--- NOTE | 2024-07-26 16:54 | Electrocardiogram Report ---
Test Reason : Blood Pressure : */* mmHG Vent. Rate : 61 BPM Atrial Rate : 61 BPM P-R Int : 166 ms QRS Dur : 176 ms QT Int : 486 ms P-R-T Axes : * -65 90 degrees QTcB Int : 489 ms AV dual-paced rhythm Abnormal ECG When compared with ECG of 30-Jun-2024 16:25, No significant change was found Confirmed by Burt Vega ([id number]) on 07/26/2024 4:54:19 PM Referred By: Confirmed By: Burt Vega
--- NOTE | 2024-07-26 17:04 | CT Scan Report ---
INDICATION: Syncope. COMPARISON: CT from 04/14/2024. TECHNIQUE: Axial CT images of the head were obtained without IV contrast. Coronal and sagittal reformations were reviewed. FINDINGS: Pizano-white differentiation is relatively preserved. No mass, mass effect or midline shift. Chronic ischemic white matter changes. Mild cortical atrophy. Basal ganglia calcifications. No evidence of acute large territorial infarction or acute intracranial hemorrhage. Ventricles appear similar in size. Basal cisterns are patent. No depressed calvarial fracture. IMPRESSION: No acute intracranial process. Electronically signed by Eliazar Lorenz 07-26-2024 5:04 PM
[2024-07-26] MEDS: FUROSEMIDE 40 MG/4 ML VIAL IV ONE (17:10)
[2024-07-26] MEDS: POTASSIUM CHLORIDE / WTR 10 MEQ/100 ML PLCT IV SCH (17:45)
[2024-07-26] MEDS: MAGNESIUM SULFATE / D5W 1 GM/100 ML BAG IV ONE (17:45)
--- NOTE | 2024-07-26 18:00 | History & Physical Report ---
Date of Service July 26, 2024 Assessment & Plan (1) Seizure-like activity: (2) Syncope: (3) Pacemaker: (4) Interstitial lung disease: (5) Chronic systolic heart failure: (6) LBBB (left bundle branch block): (7) Ischemic cardiomyopathy: Plan This is a 69-year-old female with PMH of history of complete heart block status post permanent pacemaker, biventricular ICD in situ, chronic systolic heart failure (EF 45% on Jul 30 echo, improved from 30-35% in 03/29), ILD, hype rtension, ischemic cardiomyopathy, stress urinary incontinence, esophageal dysphagia, mild dementia, mood disorder, history of alcohol dependence, ambulatory dysfunction and other medical problems listed below who presents from home after witnessed seizure-like activity and syncopal episode. Seizure-like activity Syncopal episode ? history of seizure in setting of etoh abuse, no record of neuro notes in Epic Given 1gm IV Keppra in ED Seizure precautions Keppra 500mg PO BID Routine neuro consult Orthostatics, recent echo from Jul 2024 with improved EF 45%, monitor on telemetry Acute UTI Abnormal UA, culture pending Empiric rocephin CAD Chronic Systolic CHF hx of CHB s/p PPM BIV ICD present HTN/HLD Follows [facility] cardiology Continue Entresto, asa, imdur, coreg, statin Hypothyroidism Continue levothyroxine DM II A1c 6.2 in 03/29, diet controlled Repeat tomorrow Metformin recently dc'd due to diarrhea Hx of alcohol abuse Mild dementia Mood stable, remote hx of etoh abuse Anemia of chronic disease Hgb stable DVT Ppx: SQ heparin Code status: FULL PCP: Gigi Dispo: Admitted to PCU Patient seen in collaboration with Dr. Ledezma. Please see addendum. I spent a total of 75 minutes coordinating, documenting, and providing care for this patient excluding time spent in the performance of separately billed services. History of Present Illness Chief Complaint: seizure Primary Care Provider: Luzma Yu MD This is a 69-year-old female with PMH of history of complete heart block status post permanent pacemaker, biventricular ICD in situ, chronic systolic heart failure (EF 30-35% per 03/29 echo), ILD, hypertension, ischemic cardiomyopathy, stress urinary incontinence, esophageal dysphagia, mild dementia, mood disorder, history of alcohol dependence, ambulatory dysfunction and other medical problems listed below who presents from home after witnessed seizure episode. Was at home today with home nursing staff who was brushing her hair when event occurred. She denies any preceding CP, SOB or palpitations. Does not there is a coal burning stove in living room and felt hot prior to event. Nursing reportedly noticed tonic clonic activity and then what appeared to be a brief LOC. Did have episode of vomiting afterwards which has not recurred. No tongue biting. Unsure of urinary incontinence as she wears briefs at baseline. Seizure history per chart but is not on AEDs, ? in setting of alcohol abuse history which is remote. Patient unsure of any recent events. Lives with her who manages her meds and uses a walker to ambulate. 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 CT head reassuring without intracranial process. CXR with possible volume overload. Allergies Allergy/AdvReac Type Severity Reaction Status Date / Time latex Allergy Intermediate HIVES Verified 06/13/24 15:15 adhesive Allergy Mild SKIN Verified 06/13/24 15:15 IRRITATION penicillin V Allergy Unknown CAN'T Verified 06/13/24 15:15 REMEMBER olanzapine [From Zyprexa] AdvReac Intermediate lethargy Verified 06/13/24 15:15 aspirin AdvReac Mild STOMACH Verified 06/13/24 15:15 UPSET Home Medications Medication Instructions Recorded Confirmed Type nitroglycerin 0.4 mg sublingual 0.4 mg sublingual DIRECTED PRN 06/16/18 07/26/24 History tablet (Nitrostat) Chest Pain atorvastatin 80 mg tablet 80 mg PO HS 03/12/21 07/26/24 History acetaminophen 500 mg tablet 1,000 mg PO AMHS 02/15/23 07/26/24 History (Tylenol Extra Strength) aspirin 81 mg tablet,delayed 81 mg PO QAM 04/28/23 07/26/24 History release magnesium oxide 400 mg PO QAM 04/28/23 07/26/24 History alendronate 70 mg tablet 70 mg PO .QWEEKLY 03/06/24 07/26/24 History isosorbide mononitrate 120 mg 120 mg PO QAM 03/06/24 07/26/24 History tablet,extended release 24 hr levothyroxine 50 mcg capsule 50 mcg PO DAILY 03/28/24 07/26/24 History solifenacin 10 mg tablet 10 mg PO DAILY 05/24/24 07/26/24 History multivitamin with folic acid 400 1 tab PO QAM #30 tabs 05/27/24 07/26/24 Rx mcg tablet (Daily-Nadir (with folic acid)) thiamine HCl (vitamin B1) 100 mg 100 mg PO QAM #30 tabs 05/27/24 07/26/24 Rx tablet carvedilol 12.5 mg tablet 12.5 mg PO BIDM #180 tabs 05/31/24 07/26/24 Rx sacubitril 49 mg-valsartan 51 mg 1 tab PO BID #90 tabs 05/31/24 07/26/24 Rx tablet (Entresto) Past Med/Surg History Problem List (Updated 07/26/24 @ 21:09 by Dahlia Vidal PA-C) Anemia (Acute) Pacemaker (Acute) Syncope (Acute) Seizure-like activity (Acute) Acute respiratory failure with hypoxia Acute hyponatremia (Acute) Hypoxia (Acute) Pneumonia (Acute) Diarrhea (Acute) Interstitial lung disease S/P coronary artery stent placement Non-ST elevation RI (NSTEMI) (Acute) Chest pain (Acute) LBBB (left bundle branch block) Chest pain (Acute) Generalized weakness (Acute) Dyslipidemia Parainfluenza (Acute) Pneumonia (Acute) RAD (reactive airway disease) (Acute) UGIB (upper gastrointestinal bleed) SOB (shortness of breath) HBP (high blood pressure) GERD (gastroesophageal reflux disease) Osteoporosis AF (paroxysmal atrial fibrillation) Depression Diabetes mellitus, type 2 Fracture of L1 vertebra (Acute) Fall (Acute) Mixed hearing loss, bilateral Coronary artery disease Fatigue ICD (implantable cardioverter-defibrillator), biventricular, in situ Encounter for pre-operative examination Encounter for pre-operative examination Esophageal dysphagia Left knee pain (Acute) Left knee pain (Acute) Unstable angina Syncope (Acute) DVT prophylaxis Acute cystitis Ischemic cardiomyopathy Hypothyroidism PT DENIES. Medical History (Updated 07/26/24 @ 21:09 by Dahlia Vidal PA-C) Chronic systolic heart failure Elevated troponin S/P right coronary artery (RCA) stent placement (2015) History of placement of stent in LAD coronary artery (2008) History of placement of stent in LAD coronary artery (2019) Hypomagnesemia Acute hypokalemia Non-ST elevation RI (NSTEMI) Pneumonia Acid reflux disease with ulcer Alcohol abuse, unspecified Anxiety state, unspecified Anxiety disorder Atrial fibrillation Coronary artery disease Cardiac arrest Cardiomyopathy Congestive heart failure, unspecified Congestive cardiomyopathy Cor athrscl-uns vessel Depressive disorder, not elsewhere classified Dysphagia, oropharyngeal phase Fecal incontinence Goiter Celia's thyroiditis Other and unspecified hyperlipidemia Ocular hypertension, unspecified eye Lumbago Lumbar compression fracture Old myocardial infarct Postmenopausal atrophic vaginitis Subclinical hypothyroidism Type 2 diabetes mellitus Unknown whether patient has any health problems Urinary tract infection FREQUENT Cancer SKIN CANCER Hypertension Anxiety GERD (gastroesophageal reflux disease) HLD (hyperlipidemia) CAD (coronary artery disease) Surgical History History of appendectomy History of cardiac cath 1 STENT (2016 @ [facility]) History of esophagogastroduodenoscopy (EGD) History of colonoscopy History of tonsillectomy S/P placement of cardiac pacemaker ~15-20 YEARS AGO[address] FOLLOWS WITH DR RUBI AND LAST CHECKED 4 MONTHS AGO History of cholecystectomy Family History Mother Family history of diabetes mellitus Blind Hearing loss Hypertension Allergies Asthma Sister Family history of diabetes mellitus Coronary heart disease Father No problems noted. Denies family history of No family history of adverse response to anesthesia No family history of bleeding disorder Heart disease Cancer Stroke Social History Smoking Status: Never smoker Tobacco Type: Cigarettes Second Hand Exposure: No; Do You Dip or Chew Tobacco: No; Hx Alcohol Use: Yes Alcohol type: beer and hard liquor Alcohol Intake Frequency: 2-3 x/Week Hx Substance Use: No Preferred Language: Monegasque Communication Ability: Effective Broadcast Engineer Required: No Beliefs That Will Affect Care: None marital status: Current Living Situation: Spouse How many Children do You have: 1 Feels Safe at Home: Yes Assistive Devices: Walker Review of Systems Review of Systems: At least ten systems reviewed and negative except as noted in the HPI. Physical Exam Physical Exam: Please see Dr. Ledezma's addendum for physical exam. Results & Data Results & Data Vital Signs (Past 12 Hours) Vital Signs Temp Pulse Pulse Resp BP BP Pulse Ox 07/26/24 16:56 58 L 20 125/83 98 07/26/24 16:56 98 07/26/24 16:07 58 L 07/26/24 15:22 36.4 C L 77 22 114/72 98 O2 Del Method 07/26/24 16:56 Room Air 07/26/24 16:56 Room Air 07/26/24 16:07 07/26/24 15:22 Room Air Laboratory Results Short CBC 07/26/24 Range/Units 15:17 WBC 4.74 L (4.8-10.8) K/ul Hgb 10.7 L (12.0-16.0) g/dl Hct 32.9 L (37.0-47.0) % Plt Count 150 (130-400) K/uL BMP 07/26/24 15:17 Sodium 138 Potassium 3.8 Chloride 105 Carbon Dioxide 29 BUN 18 Creatinine 0.93 Glucose 151 H Calcium 9.4 Liver Function 07/26/24 Range/Units 15:17 Total Bilirubin 0.8 (0.2-1.0) mg/dl AST 14 (13-39) U/L ALT 15 (7-52) U/L Alkaline Phosphatase 59 (34-104) U/L Albumin 3.9 (3.4-5.0) gm/dl Urine 07/26/24 Range/Units 19:12 Urine Color Yellow Urine Appearance Clear (Clear) Urine pH 5.5 (4.5-7.5) Ur Specific [place] 1.009 (1.000-1.030) Urine Protein Negative (Negative) Urine Glucose (UA) Negative (Negative) Diagnostic Findings Head CT 07/26/24 15:31 INDICATION: Syncope. COMPARISON: CT from 04/14/2024. TECHNIQUE: Axial CT images of the head were obtained without IV contrast. Coronal and sagittal reformations were reviewed. FINDINGS: Pizano-white differentiation is relatively preserved. No mass, mass effect or midline shift. Chronic ischemic white matter changes. Mild cortical atrophy. Basal ganglia calcifications. No evidence of acute large territorial infarction or acute intracranial hemorrhage. Ventricles appear similar in size. Basal cisterns are patent. No depressed calvarial fracture. IMPRESSION: No acute intracranial process. Electronically signed by Eliazar Lorenz 07-26-2024 5:04 PM Chest X-Ray 07/26/24 16:08 INDICATION: Chest pain. TECHNIQUE: Frontal radiograph of the chest. COMPARISON: Radiograph from 06/30/2024. FINDINGS: Mild cardiomegaly. Chronic appearing interstitial lung markings again noted. Difficult to exclude additional fluid overload or pneumonia. No pleural effusion or pneumothorax. No acute fracture. Left-sided pacemaker. IMPRESSION: Chronic appearing interstitial lung markings again noted. Difficult to exclude additional fluid overload or pneumonia. Electronically signed by Shilamiky Eliazar 07-26-2024 4:35 PM Supervising Physician Co-Signing Physician Notes Pt seen and examined by me, care coordinated w/ Noe Vidal PA-C, pls refer to her note above for further detail. 69 yo F with hx of complete heart block s/p permanent pacemaker, biventricular ICD in situ, chronic systolic HF (EF 30-35% per 03/29 echo), ILD, HTN, ischemic cardiomyopathy, stress urinary incontinence, esophageal dysphagia, mild dementia, mood disorder, history of alcohol dependence, ambulatory dysfunction who presents after witnessed seizure episode. Was at home today with home nursing staff who was brushing her hair when event occurred. Nursing reportedly noticed tonic clonic activity and then what appeared to be a brief LOC. 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 CT head reassuring without intracranial process. Currently laying in bed in NAD, she is awake, alert, answers appropriately. Speech fluent, no facial asymmetry. Lungs CTAB, heart sounds regular. Abdomen soft, nontender. Moves extremities. Abnormal UA - ucultx pending. Cont. with rocephin. Cont. Keppra 500 bid, consult neurology. Cont. to closely monitor. MD [place] (2) Syncope Syncope type: unspecified Qualified Code(s): R55 - Syncope and collapse
[2024-07-26 19:48] LABS: Appearance Urine Clear (Clear); Bacteria Urine Automated 3+ (None Seen); Bilirubin Urine Negative (Negative); Blood Urine Negative (Negative); Cast Urine Automated 0-2 /lpf (0-2); Color Urine Yellow; Epithelial Cell Urine Auto 0-2 /hpf (0-2); Glucose Urine UA Negative (Negative); Ketones Urine Negative (Negative); Leukocyte Esterase Urine 1+ (Negative); Nitrite Urine Negative (Negative); Protein Urine Negative (Negative); RBC Urine Automated 0-2 /hpf (0-2); Specific Gravity Urine 1.009 (1.000-1.030); Urobilinogen Urine Negative (Negative); pH Urine 5.5 (4.5-7.5)
[2024-07-26] MEDS ORDERED: cefTRIAXone SODIUM 1,000 MG/50 ML BAG IV SCH (21:45)
--- OUTSIDE RECORDS SUMMARY | 2024-07-26 22:17 | External Medical Summary | Summary of Care ---
Author Name Unknown Organization [facility] Address [address] [place] [address] Phone [phone] Care Team Providers Care Lead Former Name Role Phone Luzma Yu MD Primary Care Provid er Encounter Details Date Type Department Care Team (Late st Contact Info) Description 07/22/2024 2:00 PM EST Home Visit Care Coordination and Integration [address] [place] [address] Kelly Meraz [facility] Customer Supply Chain Analyst [address], [place] [id number] Allergies Active Allergy Reactions Criticality Noted Date Comments Adhesive Tape 01/22/2001 local skin reaction Wound Dressings 05/13/2022 Other reaction(s): Skin irritation Aspirin 04/05/2021 Other reaction(s): Stomach upset Latex Hives 04/05/2021 Metformin Diarrhea High 06/03/2024 Penicillins 10/13/2003 hives documented as of this encounter (statuses as of 07/25/2024) Medications ECOTRIN LOW STRENGTH 81 MG OR TBECIndications:At rioventricular block, complete (HCC),Cardiac disease,Generalize d anxiety disorder one by mouth daily 0 0 10/19/19 04 Active Acetaminophen 500 MG Oral Tablet (Tylenol) Take 1 Tablet by mouth every 6 hours as needed. Take 2 tablets every 8 hours-mild pain/fever Active traMADol HCl 50 MG Oral Tablet (Ultram)Indication s:Chronic low back pain without sciatica, unspecified back pain laterality Take 1 Tablet by mouth daily as needed for Pain, Severe. Take 1000mg tylenol every 6-8 hours first. If no improvement in pain, then can use tramadol. 90 Tablet 4 3:34 PM EDT 02/26/20 24 Active Atorvastatin Calcium 80 MG Oral Tablet (Lipitor)Indicatio ns:Dyslipidemia, goal to be determined,Ischemi c cardiomyopathy Take 1 Tablet by mouth in the morning. 90 Tablet 3 4 12:06 PM EST 02/26/20 24 Active Isosorbide Mononitrate ER 120 MG Oral Tablet Extended Release 24 Hour (Imdur)Indications :Ischemic cardiomyopathy Take 1 Tablet by mouth in the morning. 90 Tablet 3 4 12:06 PM EST 02/26/20 24 Active Thiamine HCl 100 MG Oral Tablet (vitamin B-1)Indications:Al cohol use disorder, severe, in early remission (HCC) TAKE 1 TABLET BY MOUTH EVERY DAY IN THE MORNING 90 Tablet 3 02/26/20 24 Active Nitroglycerin 0.4 MG Sublingual Tablet Sublingual (Nitrostat)Indicat ions:H/O heart artery stent,Atypical chest pain Place 1 Tablet under the tongue every 5 minutes as needed for Pain, Chest. 90 Tablet 3 4 3:34 PM EDT 02/26/20 24 Active Gabapentin 100 MG Oral Capsule (Neurontin)Indicat ions:Peripheral polyneuropathy Take 1 Capsule by mouth at bedtime. 90 Capsule 3 4 12:06 PM EST 02/26/20 24 Active Levothyroxine Sodium 50 MCG Oral Tablet (Levoxyl)Indicatio ns:Acquired hypothyroidism Take 1 Tablet by mouth daily first thing in the morning. (at least 30 min prior to breakfast or other meds) 90 Tablet 3 4 12:06 PM EST 02/26/20 24 Active Entresto 49-51 MG Oral Tablet (sacubitril-valsar collins 49-51 mg per tab)Indications:Tr ansient atrial fibrillation (HCC) Take 1 Tablet by mouth in the morning and 1 Tablet before bedtime. 180 Tablet 3 4 11:24 AM EST 05/30/20 24 Active Carvedilol 12.5 MG Oral Tablet (Coreg) Take 1 Tablet by mouth in the morning and 1 Tablet before bedtime. 200 Tablet 4 8:09 AM EST 05/31/20 24 Active Solifenacin Succinate 10 MG Oral Tablet (VESIcare)Indicati ons:Urge incontinence of urine Take 1 Tablet by mouth in the morning. 90 Tablet 3 07/12/19 25 Active Magnesium Oxide 400 MG Oral Capsule Take 1 Capsule by mouth in the morning. Active Alendronate Sodium 70 MG Oral Tablet (Fosamax)Indicatio ns:Age-related osteoporosis without current pathological fracture Take 1 Tablet by mouth once a week. with 8 oz. water 30 minutes before first meal of the day. Remain upright for 30 min after taking tablet. 12 Tablet 3 06/24/20 24 025 Discontin ued(Refil l) Hospital, Clinic, or Other Facility Administered Medication Ordered Dose Route Frequency Start Date End Date Status Albuterol Sulfate (Proventil) (5 MG/ML) 0.5% *conc* inhalation solution 2.5 mgIndications:Dyspnea and respiratory abnormalities,Abnormal CT scan, chest 2.5 mg NEBULIZER PRN 03/15/2024 03/15/2025 Active Albuterol Sulfate (Proventil) (2.5 MG/3ML) 0.083% inhalation solution 2.5 mgIndications:Dyspnea and respiratory abnormalities,Abnormal CT scan, chest 2.5 mg NEBULIZER PRN 03/15/2024 03/15/2025 Active documented as of this encounter (statuses as of 07/25/2024) Active Problems Problem Noted Date Diagnosed Date Food insecurity 07/18/2024 Overview: Per [facility] Protocol Fall 06/03/2024 Physical deconditioning 06/03/2024 Hypertensive heart and chron ic kidney disease with heart failure and stage 1 through stage 4 chronic kidney disease, or chronic kidney disease 05/03/2024 Hx of cholecystectomy 05/03/2024 Pulmonary nodule 05/03/2024 Chronic systolic heart failure 05/03/2024 ILD (interstitial lung disease) 04/26/2024 Overview (04/26/2024): CT Chest 04/2024 Traction bronchiectasis 04/26/2024 Combined forms of age-related cataract of both e yes 09/21/2023 ICD (implantable cardioverte r-defibrillator), biventricular, in situ 05/18/2023 Mixed hearing loss, bilateral 05/18/2023 Esophageal dysphagia 05/18/2023 Mild dementia associated wit h alcoholism, without behavioral disturbance, psychotic disturbance, mood disturbance, or anxiety 11/03/2022 Alcohol use disorder, severe, in early remission 11/03/2022 Generalized osteoarthritis 05/13/2022 Urge incontinence of urine 05/13/2022 Prediabetes 02/10/2022 Overview: Per Prediabetes protocol Osteoporosis 04/05/2021 H/O alcohol dependence 04/05/2021 Keratoacanthoma of forearm 09/09/2018 Scalp psoriasis 09/01/2018 Major depressive disorder, recurrent episode, mo derate 02/02/2004 Venous insufficiency 10/30/2003 Cardiac disease 10/19/2003 Paroxysmal ventricular tachycardia 10/19/2003 Dyslipidemia, goal to be determined 10/19/2003 Atrioventricular block, complete 10/11/2003 Cardiac pacemaker in situ 10/11/2003 HTN, goal below 140/90 08/06/2002 H/O heart artery stent 08/06/2002 Ischemic cardiomyopathy 08/06/2002 Transient atrial fibrillation 08/06/2002 Hypothyroidism 08/06/2002 FEM STRESS INCONTINENCE 06/01/2002 GENERALIZED ANXIETY DIS documented as of this encounter (statuses as of 07/25/2024) Resolved Problems Problem Noted Date Diagnosed Date Resolved Date Unspecified dementia, mild, without behavioral disturbance, psychotic disturbance, mood disturbance, and anxiety 05/03/2024 05/03/2024 Unspecified dementia, mild, without behavioral disturbance, psychotic disturbance, mood disturbance, and anxiety 05/03/2024 05/03/2024 Seizure 05/03/2024 07/11/2024 Food insecurity 04/18/2024 05/19/2024 Overview: Per [facility] Protocol Type 2 diabetes mellitus wit h hemoglobin A1c goal of less than 7.5% 03/25/2024 04/04/2024 Unstable angina 05/18/2023 09/22/2023 UGIB (upper gastrointestinal bleed) 05/18/2023 04/28/2024 Fracture of L1 vertebra 05/18/202304/06 Fatigue 05/18/2023 04/28/2024 Chronic kidney disease, stage 3a 02/10/2022 05/03/2024 Overview: Per CKD protocol Impaired mobility 04/05/2021 04/28/2024 Pain of lumbar spine 04/05/2021 024 Skin exam, screening for cancer 09/02/2018 04/28/2024 Overview (09/02/2018): Keratoacanthoma (L forearm) Mass of chest wall 12/13/2013 Dermatitis 08/05/2004 04/28/2024 SKIN SENSATION DISTURB 02/02/200404/28 ACUTE STRESS 02/02/2004 04/28/2024 ABN LIVER FUNCTION STUDY 10/31/2003 OVERWEIGHT 10/30/2003 04/28/2024 ALCOHOL ABUSE-CONTINUOUS 10/19/2003 Menopause 10/07/2002 04/28/2024 Abnormal mammogram 10/03/2002 4 BENIGN HYPERTENSION 08/02/2002 03/15/20 Chemical dermatitis 10/30/19 04 documented as of this encounter (statuses as of 07/25/2024) Immunizations Name Administration Dates Next Due COVID-19 mRNA, LNP-s, No Pre serve, 2-Dose Series (Moderna) 11/06/2020,09/27/2020 Pneumococcal Conjugate Vaccine, 20-valent (Prevn ar20) 05/09/2022 Seasonal Influenza, Quadrivalent Hd (Fluzone Hd) 05/18/2023,05/09/2022 TDAP (age 10 and older)(Boostrix) 10/31/2022 documented as of this encounter Social History Tobacco Use Types Packs/Day Years Used Date Smoking Tobacco: Never Passive Smoke Exposure: Never Smokeless Tobacco: Never Alcohol Use Standard Drinks/Week Comments Yes 0 (1 standard drink = 0.6 oz pur e alcohol) occasionally PHQ-2 Answer Date Recorded PHQ Adult Total Score 0 05/03/2024 Hunger Vital Sign Answer Date Recorded Within the past 12 months, y ou worried that your food would run out before you got the money to buy more. Sometimes true Within the past 12 months, t he food you bought just didn't last and you didn't have money to get more. Sometimes true Childcare Answer Date Recorded Do you feel overwhelmed with taking care of a child, family member or friend? No 06/21/2024 Does your family need help f inding childcare? (Household - for ages 0-17 years) Not on file 06/21/2024 Clothing Answer Date Recorded Have you been unable to get clothing when it was really needed? No 06/21/2024 Is your family able to get c lothes or diapers when needed? (Household - for ages 0-17 years) Not on file 06/21/2024 Personal Safety Answer Date Recorded Do you feel unsafe or have concerns for your saf ety? No 06/21/2024 Do you have concerns for you r family's safety? (Household - for ages 0-17 years) Not on file 06/21/2024 Utilities Answer Date Recorded Do you have trouble paying y our heating, water, or electric bill? Yes 06/21/2024 Is your family able to pay t he heat, water, or electric bill? (Household - for ages 0-17 years) Not on file 06/21/2024 Does your family have access to good internet? (Household - for ages 0-17 years) Not on file 06/21/2024 Employment Status Answer Date Recorded Are you unemployed or without regular income? No 06/21/2024 Does the household have a re gular source of income? (Household - for ages 0-17 years) Not on file 06/21/2024 Social Connections Answer Date Recorded How often do you feel lonely or isolated from th ose around you? Often 06/21/2024 Financial Resource Strain Answer Date R ecorded Do you have any trouble payi ng for your medications, or do you think you might in the future? No 06/21/2024 Does your family have troubl e paying for medicine? (Household - for ages 0-17 years) Not on file 06/21/2024 Transportation Needs Answer Date Record ed Do you have trouble getting a ride to medical visits or work? (Adult - for ages 18 years and over) Not on file 06/21/2024 Does your family have a hard time getting a ride to doctors visits? (Household - for ages 0-17 years) Not on file 06/21/2024 Has lack of transportation k ept you from medical appointments, meetings, work, or from getting things needed for daily living? Check all that apply. No 06/21/2024 Do you (or your family) have trouble finding or paying for a ride (transportation)? (Household - for ages 0-17 years) Not on file 06/21/2024 Housing Stability Answer Date Recorded Do you currently live in a s helter or have no steady place to sleep at night? No 06/21/2024 Do you think you are at risk of becoming homeless? (Adult - for ages 18 years and over) Not on file 06/21/2024 Does your family worry about paying for your home or becoming homeless? (Household - for ages 0-17 years) Not on file 1 08/22/2023 Are you homeless or worried that you might be in the future? No 06/21/2024 Are you (or your family) julio eless or worried that you might be in the future? (Household - for ages 0-17 years) Not on file Food Insecurity Answer Date Recorded Do you need food for this week? No 06/21/2024 Are you able to get enough f ood for your family? (Household - for ages 0-17 years) Not on file 06/21/2024 Does your family need food t his week? (Household - for ages 0-17 years) Not on file 06/21/2024 Do you always have enough fo od for your family? (Household - for ages 0-17 years) Not on file 06/21/2024 Comments No Sex and Gender Information Value Date Recorded Sex Assigned at Not on file Legal Sex Female 7:02 AM EST Gender Identity Not on file Sexual Orientation Not on file Occupation Industry Job Start Date Job End Date [employer] Not on file Not on file Not on file documented as of this encounter Progress Notes * Kelly Meraz, [facility] Customer Supply Chain Analyst - 07/22/2024 3:24 PM EST Telemedicine visit: No [facility] Customer Supply Chain Analyst ([facility]) documentation: CHW completed home visit this date to set up the [employer] wear[employer]. CHW was able to get connection for the scale, however, the blood pressure cuff would not work. The screen would not show full numbers. CHW put in new batteries and the screen still was not able to beread. CHW called [facility] rep and they are going to send a new blood pressure cuff and she should receive by July 25. CHW will call next week to make sure that pt receives the device. Pt did hear back from the [employer] and received $200.00 towards their electric bill. documented in this encounter Plan of Treatment Upcoming Encounters Date Type Department Care Team (Late st Contact Info) Description 09/05/2024 4:00 PM EST Office Visit [facility] [address] [place] [id number] Luzma Yu MD [address] [place], [place] [id number] 05/02/2025 9:00 AM EDT Home Visit Care at Home [address] [place] [address] Roz Zarate PA-C [address], [place] [id number] Health Maintenance Due Date Last Done Comments Cologuard 1998 Colonoscopy 1998 Fecal Occult Blood Test 1998 Sigmoidoscopy 1998 COVID-19 Vaccine ( season) 2024 11/06/2020, 09/27/2020 Influenza Vaccine (FLU shot) (#1) 2024 05/18/2023, 05/09/2022 GFR 04/01/2025 04/01/2024, 10/2022, 03/21/2023, Additional history exists HbA1c 04/01/2025 04/01/2024, 1210/2022, 11/03/2022, Additional history exists TSH 04/01/2025 04/01/2024, 3, 11/03/2022, Additional history exists Adult Wellness Visit 05/03/2025 05/03/2024 Depression Monitoring 05/03/2025 05/03/2024 Albumin/Creatinine Ratio 05/20/2025 05/20/2022 Mammogram 07/14/2025 07/14/2024, 11/04, 06/01/2002 DXA Scan 07/27/2025 07/27/2023, 07/27/2023 DTap/Tdap Vaccines (2 - Td or Tdap) 10/31/2032 10/31/2022 Pneumococcal Vaccine: 50+ Years Completed 05/09/2022 VITAMIN D LEVEL ONCE IN A LIFETIME-USE SMARTSET# [id number] Completed 11/03/2022, 05/09/2022 Diabetic Eye Exam Discontinued 09/21/2023, , 09/21/2023, Additional history exists Colorectal Cancer Screening Discontinued HPV (Gardasil) Vaccine Aged Out No lo nger eligible based on patient's age to complete this topic Hepatitis B Vaccine Aged Out No longe r eligible based on patient's age to complete this topic MENINGOCOCCAL (MENACTRA/MENVEO) Aged Out No longer eligible based on patient's age to complete this topic Zoster Vaccines Discontinued documented as of this encounter Medical Devices Not on filedocumented as of this encounter Care Teams Lead Former Relationship Specialty Start Date End Date Luzma Yu MD PCP - General Family Medicine 04/05/21 documented as of this encounter
--- OUTSIDE RECORDS SUMMARY | 2024-07-26 22:17 | External Medical Summary | Summary of Care ---
Author Name Unknown Organization [facility] Address [address] [address] Phone [phone] Care Team Providers Care Cd Manufacturing Supervisor Name Role Phone Luzma Yu MD Primary Care Provid er Reason for Visit * Reason Onset Date Comments Home Health 07/21/2024 Encounter Details Date Type Department Care Team (Late st Contact Info) Description [facility] [address] [facility] [place] [phone] Luzma Yu MD [address] [facility] [place] [address] Home Health Allergies Active Allergy Reactions Criticality Noted Date Comments Adhesive Tape 01/22/2001 local skin reaction Wound Dressings 05/13/2022 Other reaction(s): Skin irritation Aspirin 04/05/2021 Other reaction(s): Stomach upset Latex Hives 04/05/2021 Metformin Diarrhea High 06/03/2024 Penicillins 10/13/2003 hives documented as of this encounter (statuses as of 07/22/2024) Medications ECOTRIN LOW STRENGTH 81 MG OR [...] morning. 90 Tablet 3 07/12/19 25 Active Cefuroxime Axetil 500 MG Oral Tablet (Ceftin) Take 1 Tablet by mouth in the morning and 1 Tablet before bedtime. 025 Discontin ued(End of Procedure ) Ciprofloxacin HCl 500 MG Oral Tablet (Cipro) Take 1 Tablet by mouth in the morning and 1 Tablet before bedtime. 025 Discontin ued(End of Procedure ) guaiFENesin ER 600 MG Oral Tablet Extended Release 12 Hour (Humibid LA) Take 1 Tablet by mouth in the morning and 1 Tablet before bedtime. 025 Discontin ued(Medic ation/Dos e Changed) Advanced Probiotic Oral Capsule Take 1 Capsule by mouth daily. 025 Discontin ued(Medic ation List Clean Up) Alendronate Sodium 70 MG Oral Tablet (Fosamax)Indicatio [...] as of this encounter (statuses as of 07/22/2024) Active Problems Problem Noted Date Diagnosed Date Food insecurity 07/18/2024 Overview: Per [facility] Protocol Fall 06/03/2024 Physical deconditioning 06/03/2024 [...] as of this encounter (statuses as of 07/22/2024) Resolved Problems Problem Noted Date Diagnosed Date [...] mammogram 10/03/2002 4 BENIGN HYPERTENSION 08/02/2002 03/15/20 24 Chemical dermatitis 10/30/19 04 documented as of this encounter (statuses as of 07/22/2024) Immunizations Name Administration Dates Next Due COVID-19 [...] Job Start Date Job End Date [employer] Not on file Not on file Not on file documented as of this encounter Miscellaneous Notes * Telephone Encounter - Luzma Yu MD - 07/22/2024 4:35 PM EST duplicate * Telephone Encounter - Mario Pacheco LPN - 07/21/2024 12:01 PM EST HH Concerns Shi-RN, Calling from: Gabe Report/Concerns of: Medication Related Symptoms: none Vitals: T-98.4 P-67 RR-18 BP 102/56 SP O2-96% RA Lung sounds-clear Weight-123 Left ankle circumference- 18.5 CM Right ankle circumference- 18 CM Narrative: Request med list to be faxed and med list reviewed. Went over med list with Shi and only medication that needs clarification is Gabapentin 100 mg at HS. Patient does not have it in the home or taking it. Used for Peripheral polyneuropathy. Sent to [facility] or on 02/26/24. I contacted [facility] and talked to Nai about Gabapentin script. Nai states4 medication (Gabapentin, Isosorbide,Atorvastatin,Levothyroxine) was all shipped to patient on 05/20/24. Patient received all the meds EXCEPT Gabapentin. I contacted the and Shi and they checked again and NO gabapentin. They are having issues with delivery drivers placing meds on porch/steps that's not used, then med sits outside for days. Francisco is requesting med to be sent to local pharmacy to get filled so can get started again. Med Pended-sign if agree to continue Call back Francisco with any advice or orders at [phone] Please fax new orders to [facility] Faxed med list to [facility], received confirmation that the transmission was successful. * Telephone Encounter - Jazlyn Healy OSA - 07/21/2024 11:59 AM EST Reason for patient's call: Home health nurse to speak with nurse Caller was transferred to [place] at the nurse line. * Telephone Encounter - Jazlyn Healy OSA - 07/21/2024 11:51 AM EST Home Health calling to inform pt is up 3 lbs since her last visit with them, vital signs are temp 98.4 she's sitting close to a heater, Pulse rate 67 Respiratory of 18 Blood pressure 102/58 in left arm sitting Ankle circumference measure is 18 cm Left ankle 18.5 cm in circumference Oxygen co 96 on room air Today's weight 123 lbs, Up 3 lbs from the 07/12/24 Her lungs are clear to air in all interior & posterior lobes Patient denies having any shortness of breath, no chest pain, overall she's doing good The medication list she requested never received it if it can be faxed Fax number [phone] documented in this encounter Plan of Treatment Upcoming Encounters Date Type Department Care Team (Late st Contact Info) Description 09/05/2024 4:00 PM EST [facility] [place] [facility] [address] [place] [phone] Luzma Yu MD [address] [place] [address] 05/02/2025 9:00 AM EDT Home Visit Care at Home [address] [place] [address] Roz Zarate PA-C [address] [place] [address] Health Maintenance Due Date Last Done Comments Cologuard 1998 Colonoscopy 1998 Fecal Occult Blood Test 1998 Sigmoidoscopy 1998 COVID-19 Vaccine ( season) 2024 11/06/2020, 09/27/2020 Influenza Vaccine (FLU shot) (#1) 2024 05/18/2023, 05/09/2022 GFR 04/01/2025 04/01/2024, 12/0 10/2022, 03/21/2023, Additional history exists HbA1c 04/01/2025 04/01/2024, 12/0 10/2022, 11/03/2022, Additional history exists TSH 04/01/2025 04/01/2024, 12/0 10/2022, 11/03/2022, Additional history exists Adult Wellness Visit 05/03/2025 05/03/2024 Depression Monitoring 05/03/2025 05/03/2024 Albumin/Creatinine Ratio 05/20/2025 05/20/2022 Mammogram 07/14/2025 07/14/2024, 11/04, 06/01/2002 DXA Scan 07/27/2025 07/27/2023, 07/27/2023 DTap/Tdap Vaccines (2 - Td or Tdap) 10/31/2032 10/31/2022 Pneumococcal Vaccine: 50+ Years Completed 05/09/2022 VITAMIN D LEVEL ONCE IN A LIFETIME-USE SMARTSET# [id number] Completed 11/03/2022, 05/09/2022 Diabetic Eye Exam Discontinued [...] as of this encounter Visit Diagnoses Diagnosis Peripheral polyneuropathy Unspecified hereditary and idiopathic peripheral neuropathy documented in this encounter Care Teams Cd Manufacturing Supervisor Relationship Specialty Start Date End Date Luzma Yu MD PCP - General Family Medicine 04/05/21 documented as of this encounter
--- OUTSIDE RECORDS SUMMARY | 2024-07-26 22:17 | External Medical Summary | Summary of Care ---
Author Name Unknown Organization [facility] Address [address] [facility] [place] [address] Phone [phone] Care Team Providers Care Autism Tutor Name Role Phone Luzma Yu MD Primary Care Provid er Encounter Details Date Type Department Care Team (Late st Contact Info) Description 07/19/2024 Population Health External Data Unspecified Department Allergies Active Allergy Reactions Criticality Noted Date Comments Adhesive Tape 01/22/2001 local skin reaction Wound Dressings 05/13/2022 Other reaction(s): Skin irritation Aspirin 04/05/2021 Other reaction(s): Stomach upset Latex Hives 04/05/2021 Metformin Diarrhea High 06/03/2024 Penicillins 10/13/2003 hives documented as of this encounter (statuses as of 07/20/2024) Medications ECOTRIN LOW STRENGTH 81 MG OR [...] then can use tramadol. 90 Tablet 02/26/2024 3:34 PM EDT 02/26/20 24 Active Atorvastatin Calcium 80 MG Oral Tablet (Lipitor)Indicatio ns:Dyslipidemia, goal to be determined,Ischemi c cardiomyopathy Take 1 Tablet by mouth in the morning. 90 Tablet 3 05/20/2024 12:06 PM EST 02/26/20 24 Active Isosorbide Mononitrate ER 120 MG Oral Tablet Extended Release 24 Hour (Imdur)Indications :Ischemic cardiomyopathy Take 1 Tablet by mouth in the morning. 90 Tablet 3 05/20/2024 12:06 PM EST 02/26/20 24 Active Thiamine [...] for Pain, Chest. 90 Tablet 3 02/26/2024 3:34 PM EDT 02/26/20 24 Active Gabapentin 100 MG Oral Capsule (Neurontin)Indicat ions:Peripheral polyneuropathy Take 1 Capsule by mouth at bedtime. 90 Capsule 3 05/20/2024 12:06 PM EST 02/26/20 24 Active Levothyroxine Sodium 50 MCG Oral Tablet (Levoxyl)Indicatio ns:Acquired hypothyroidism Take 1 Tablet by mouth daily first thing in the morning. (at least 30 min prior to breakfast or other meds) 90 Tablet 3 05/20/2024 12:06 PM EST 02/26/20 24 Active Cefuroxime Axetil 500 MG Oral Tablet (Ceftin) Take 1 Tablet by mouth in the morning and 1 Tablet before bedtime. Active Ciprofloxacin HCl 500 MG Oral Tablet (Cipro) Take 1 Tablet by mouth in the morning and 1 Tablet before bedtime. Active guaiFENesin ER 600 MG Oral Tablet Extended Release 12 Hour (Humibid LA) Take 1 Tablet by mouth in the morning and 1 Tablet before bedtime. Active Advanced Probiotic Oral Capsule Take 1 Capsule by mouth daily. Active Entresto 49-51 MG Oral Tablet (sacubitril-valsar collins 49-51 mg per tab)Indications:Tr ansient atrial fibrillation (HCC) Take 1 Tablet by mouth in the morning and 1 Tablet before bedtime. 180 Tablet 3 06/01/2024 11:24 AM EST 05/30/20 24 Active Carvedilol 12.5 MG Oral Tablet (Coreg) Take 1 Tablet by mouth in the morning and 1 Tablet before bedtime. 200 Tablet 06/03/2024 8:09 AM EST 05/31/20 24 Active Alendronate Sodium 70 MG Oral Tablet (Fosamax)Indicatio ns:Age-related osteoporosis without current pathological fracture Take 1 Tablet by mouth once a week. with 8 oz. water 30 minutes before first meal of the day. Remain upright for 30 min after taking tablet. 12 Tablet 3 06/24/20 24 Active Solifenacin Succinate 10 MG Oral Tablet (VESIcare)Indicati ons:Urge incontinence of urine Take 1 Tablet by mouth in the morning. 90 Tablet 3 07/12/19 25 Active Hospital, Clinic, or Other Facility Administered Medication [...] as of this encounter (statuses as of 07/20/2024) Active Problems Problem Noted Date Diagnosed Date Fall 06/03/2024 Physical deconditioning 06/03/2024 Hypertensive heart [...] as of this encounter (statuses as of 07/20/2024) Resolved Problems Problem Noted Date Diagnosed Date [...] bleed) 05/18/2023 04/28/2024 Fracture of L1 vertebra 05/18/2023 1010/2023 Fatigue 05/18/2023 04/28/2024 Chronic kidney disease, stage 3a 02/10/2022 05/03/2024 Overview: Per CKD protocol Impaired mobility 04/05/2021 04/28/2024 Pain of lumbar spine 04/05/2021 024 Skin exam, screening for cancer 09/02/2018 04/28/2024 Overview (09/02/2018): Keratoacanthoma (L forearm) Mass of chest wall 12/13/2013 4 Dermatitis 08/05/2004 04/28/2024 SKIN SENSATION DISTURB 02/02/200404/28 ACUTE STRESS 02/02/2004 04/28/2024 ABN LIVER FUNCTION STUDY 10/31/2003 OVERWEIGHT 10/30/2003 04/28/2024 ALCOHOL ABUSE-CONTINUOUS 10/19/2003 Menopause 10/07/2002 04/28/2024 Abnormal mammogram 10/03/2002 4 BENIGN HYPERTENSION 08/02/2002 03/15/20 24 Chemical dermatitis 10/30/19 04 documented as of this encounter (statuses as of 07/20/2024) Immunizations Name Administration Dates Next Due COVID-19 [...] Job Start Date Job End Date [employer] Not on file Not on file Not on file documented as of this encounter Plan of Treatment Upcoming Encounters Date Type Department Care Team (Late st Contact Info) Description 09/05/2024 4:00 PM EST Office Visit Family [facility], [place] [address] [address] Luzma uY MD [address] [address] 05/02/2025 9:00 AM EDT Home Visit Care at Home [address] [place] [address] Roz Zarate PA-C [address] [place] [address] Health Maintenance Due Date Last Done Comments [...] D LEVEL ONCE IN A LIFETIME-USE SMARTSET# [id number] Completed 11/03/2022, 05/09/2022 Diabetic Eye Exam Discontinued [...] filedocumented as of this encounter Care Teams Autism Tutor Relationship Specialty Start Date End Date Luzma Yu MD PCP - General Family Medicine 04/05/21 documented as of this encounter
--- OUTSIDE RECORDS SUMMARY | 2024-07-26 22:17 | External Medical Summary | Summary of Care ---
Author Name Unknown Organization [facility] Address [address] [facility] [place] [address] Phone [phone] Care Team Providers Care Cath Laboratory Technician Name Role Phone Luzma Yu MD Primary Care Provid er Encounter Details Date Type Department Care Team (Late st Contact Info) Description 07/25/2024 Population Health External Data Unspecified Department Allergies [...] 90 Tablet 02/26/2024 3:34 PM EDT 02/26/20 Active Atorvastatin Calcium 80 MG Oral Tablet (Lipitor)Indicatio ns:Dyslipidemia, goal to be determined,Ischemi c cardiomyopathy Take 1 Tablet by mouth in the morning. 90 Tablet 3 05/20/2024 12:06 PM EST 02/26/20 Active Isosorbide Mononitrate ER 120 MG Oral Tablet Extended Release 24 Hour (Imdur)Indications :Ischemic cardiomyopathy Take 1 Tablet by mouth in the morning. 90 Tablet 3 05/20/2024 12:06 PM EST 02/26/20 Active Thiamine HCl 100 MG Oral Tablet (vitamin B-1)Indications:Al cohol use disorder, severe, in early remission (HCC) TAKE 1 TABLET BY MOUTH EVERY DAY IN THE MORNING 90 Tablet 3 02/26/20 Active Nitroglycerin 0.4 MG Sublingual Tablet Sublingual (Nitrostat)Indicat ions:H/O heart artery stent,Atypical chest pain Place 1 Tablet under the tongue every 5 minutes as needed for Pain, Chest. 90 Tablet 3 02/26/2024 3:34 PM EDT 02/26/20 Active Gabapentin 100 MG Oral Capsule (Neurontin)Indicat ions:Peripheral polyneuropathy Take 1 Capsule by mouth at bedtime. 90 Capsule 3 05/20/2024 12:06 PM EST 02/26/20 Active Levothyroxine Sodium 50 MCG Oral Tablet (Levoxyl)Indicatio ns:Acquired hypothyroidism Take 1 Tablet by mouth daily first thing in the morning. (at least 30 min prior to breakfast or other meds) 90 Tablet 3 05/20/2024 12:06 PM EST 02/26/20 Active Entresto 49-51 MG Oral Tablet (sacubitril-valsar collins 49-51 mg per tab)Indications:Tr ansient atrial fibrillation (HCC) Take 1 Tablet by mouth in the morning and 1 Tablet before bedtime. 180 Tablet 3 06/01/2024 11:24 AM EST 05/30/20 Active Carvedilol 12.5 MG Oral Tablet (Coreg) Take 1 Tablet by mouth in the morning and 1 Tablet before bedtime. 200 Tablet 06/03/2024 8:09 AM EST 05/31/20 Active Solifenacin Succinate 10 MG Oral Tablet (VESIcare)Indicati ons:Urge incontinence of urine Take 1 Tablet by mouth in the morning. 90 Tablet 3 07/12/19 25 Active Alendronate Sodium 70 MG Oral Tablet (Fosamax)Indicatio ns:Age-related osteoporosis without current pathological fracture Take 1 Tablet by mouth once a week. with 8 oz. water 30 minutes before first meal of the day. Remain upright for 30 min after taking tablet. 12 Tablet 3 07/22/19 25 Active Gabapentin 100 MG Oral Capsule (Neurontin)Indicat ions:Peripheral polyneuropathy Take 1 Capsule by mouth at bedtime. 90 Capsule 5 07/22/19 25 Active Magnesium Oxide 400 MG Oral Capsule Take 1 Capsule by mouth in the morning. Active Hospital, Clinic, or Other Facility Administered [...] Diagnosed Date Food insecurity 07/18/2024 Overview: Per [facility] Protocol Fall 06/03/2024 Physical deconditioning [...] 10/19/2003 Menopause 10/07/2002 04/28/2024 Abnormal mammogram 10/03/2002 BENIGN HYPERTENSION 08/02/2002 03/15/20 Chemical dermatitis 10/30/19 [...] Job Start Date Job End Date [employer] Not on file Not on file Not on file documented as of this encounter Plan of Treatment Upcoming Encounters Date Type Department Care Team (Late st Contact Info) Description 09/05/2024 4:00 PM EST [facility] [address] [phone] Luzma Yu MD [address] [phone] 05/02/2025 9:00 AM EDT Home Visit Care at Home [address] [place] [address] Roz Zarate PA-C [address] [place] [address] Health Maintenance Due Date Last Done Comments [...] D LEVEL ONCE IN A LIFETIME-USE SMARTSET# [id number] Completed 11/03/2022, 05/09/2022 Diabetic Eye Exam Discontinued [...] filedocumented as of this encounter Care Teams Cath Laboratory Technician Relationship Specialty Start Date End Date Luzma Yu MD PCP - General Family Medicine 04/05/21 documented as of this encounter
--- OUTSIDE RECORDS SUMMARY | 2024-07-26 22:17 | External Medical Summary | Summary of Care ---
Author Name Unknown Organization [facility] Address [address] [place] [address] Phone [phone] Care Team Providers Care Electric Motor Winder Name Role Phone Travon Summers MD Primary Care Provid er Reason for Visit * Reason Onset Date Comments Medication Refill 07/22/2024 Fosamax, Gabap entin Encounter Details Date Type Department Care Team (Late st Contact Info) Description 07/22/2024 Refill [facility] [address] [place], [place] [phone] Keyonna Medina, CHARLIE [address] [place] [address] Peripheral polyneuropathy*; Age-related osteoporosis without current pathological fracture Allergies Active Allergy Reactions Criticality Noted Date [...] Job Start Date Job End Date [employer] Not on file Not on file Not on file documented as of this encounter Miscellaneous Notes * Telephone Encounter - Travon Summers MD - 07/22/2024 3:45 PM EST Signed Prescriptions: Disp Refills Alendronate Sodium 70 MG Oral Tablet (Fosa*12 Tab*3 Sig: Take 1 Tablet by mouth once a week. with 8 oz. water 30 minutes before first meal of the day. Remain upright for 30 min after taking tablet. Authorizing Provider: TRAVON SUMMERS Gabapentin 100 MG Oral Capsule (Neurontin) 90 Cap*5 Sig: Take 1 Capsule by mout h at bedtime. Authorizing Provider: TRAVON SUMMERS * Telephone Encounter - Keyonna Medina RN - 07/22/2024 11:52 AM EST Patient is currently without Fosamax and is in need of a refill prescription for such. Patient's would prefer to have the prescription e-prescribed to [facility] in [place] as he is not happy with the mail delivery service. He also notes the visiting nurse requested a refill on patient's Gabapentin yesterday and he would like this prescription to also be e-prescribed to [facility] in [place]. Please sign the pended refill requests. Thanks, Keyonna Medina RN, BSN [employer] Banquet Bartender [phone] documented in this encounter Plan of Treatment Upcoming Encounters Date Type Department Care Team (Late st Contact Info) Description 09/05/2024 4:00 PM EST Office Visit Family Practice, [place] [address] [phone] Travon Summers MD [address] [address] 05/02/2025 9:00 AM EDT Home Visit Care at Home [address] [place] [address] Roz Zarate PA-C [address] [place] [address] Health Maintenance Due Date Last [...] D LEVEL ONCE IN A LIFETIME-USE SMARTSET# [id number] Completed 11/03/2022, 05/09/2022 Diabetic Eye Exam Discontinued [...] of this encounter Visit Diagnoses Diagnosis Peripheral polyneuropathy- Primary Unspecified hereditary and idiopathic peripheral neuropathy Age-related osteoporosis without current pathological fracture Senile osteoporosis documented in this encounter Care Teams Electric Motor Winder Relationship Specialty Start Date End Date Travon Summers MD PCP - General Family Medicine 04/05/21 documented as of this encounter
--- OUTSIDE RECORDS SUMMARY | 2024-07-26 22:18 | External Medical Summary | Summary of Care ---
Author Name Unknown Organization [facility] Address [address] [place] [address] Phone [phone] Care Team Providers Care Vault Installer Name Role Phone Travon Summers MD Primary Care Provid er Reason for Visit * Reason Onset Date Comments Advice 07/12/2024 Med Request 07/12/2024 Encounter Details Date Type Department Care Team (Late st Contact Info) Description 07/12/2024 Telephone [facility] [address] [place] [address] Services, Scheduling [address] [place] [address] Advice; Med Request Allergies Active Allergy Reactions Criticality Noted Date Comments Adhesive Tape 01/22/2001 local skin reaction Wound Dressings 05/13/2022 Other reaction(s): Skin irritation Aspirin 04/05/2021 Other reaction(s): Stomach upset Latex Hives 04/05/2021 Metformin Diarrhea High 06/03/2024 Penicillins 10/13/2003 hives documented as of this encounter (statuses as of 07/14/2024) Medications ECOTRIN LOW STRENGTH 81 MG OR TBECIndications:A trioventricular block, complete (HCC),Cardiac disease,Generaliz ed anxiety disorder one by mouth daily 0 0 15/2 004 Active Acetaminophen 500 MG Oral Tablet (Tylenol) Take 1 Tablet by mouth every 6 hours as needed. Take 2 tablets every 8 hours-mild pain/fever Active traMADol HCl 50 MG Oral Tablet (Ultram)Indicatio ns:Chronic low back pain without sciatica, unspecified back pain laterality Take 1 Tablet by mouth daily as needed for Pain, Severe. Take 1000mg tylenol every 6-8 hours first. If no improvement in pain, then can use tramadol. 90 Tablet 4 3:34 PM EDT Active Atorvastatin Calcium 80 MG Oral Tablet (Lipitor)Indicati ons:Dyslipidemia, goal to be determined,Ischem ic cardiomyopathy Take 1 Tablet by mouth in the morning. 90 Tablet 3 4 12:06 PM EST Active Isosorbide Mononitrate ER 120 MG Oral Tablet Extended Release 24 Hour (Imdur)Indication s:Ischemic cardiomyopathy Take 1 Tablet by mouth in the morning. 90 Tablet 3 4 12:06 PM EST 024 Active Thiamine HCl 100 MG Oral Tablet (vitamin B-1)Indications:A lcohol use disorder, severe, in early remission (HCC) TAKE 1 TABLET BY MOUTH EVERY DAY IN THE MORNING 90 Tablet 3 Active Nitroglycerin 0.4 MG Sublingual Tablet Sublingual (Nitrostat)Indica tions:H/O heart artery stent,Atypical chest pain Place 1 Tablet under the tongue every 5 minutes as needed for Pain, Chest. 90 Tablet 3 4 3:34 PM EDT 024 Active Gabapentin 100 MG Oral Capsule (Neurontin)Indica tions:Peripheral polyneuropathy Take 1 Capsule by mouth at bedtime. 90 Capsule 3 4 12:06 PM EST Active Levothyroxine Sodium 50 MCG Oral Tablet (Levoxyl)Indicati ons:Acquired hypothyroidism Take 1 Tablet by mouth daily first thing in the morning. (at least 30 min prior to breakfast or other meds) 90 Tablet 3 4 12:06 PM EST 024 Active Cefuroxime Axetil 500 MG Oral Tablet [...] daily. Active Entresto 49-51 MG Oral Tablet (sacubitril-valsa rtan 49-51 mg per tab)Indications:T ransient atrial fibrillation (HCC) Take 1 Tablet by mouth in the morning and 1 Tablet before bedtime. 180 Tablet 3 4 11:24 AM EST 024 Active Carvedilol 12.5 MG Oral Tablet (Coreg) Take 1 Tablet by mouth in the morning and 1 Tablet before bedtime. 200 Tablet 4 8:09 AM EST 024 Active Alendronate Sodium 70 MG Oral Tablet (Fosamax)Indicati ons:Age-related osteoporosis without current pathological fracture Take 1 Tablet by mouth once a week. with 8 oz. water 30 minutes before first meal of the day. Remain upright for 30 min after taking tablet. 12 Tablet 3 024 Active Solifenacin Succinate 10 MG Oral Tablet (VESIcare)Indicat ions:Urge incontinence of urine Take 1 Tablet by mouth in the morning. 90 Tablet 3 025 Active Solifenacin Succinate 5 MG Oral Tablet (VESIcare) Take 1 Tablet by mouth in the morning. 2024 Discontinued Hospital, Clinic, or Other Facility Administered Medication [...] as of this encounter (statuses as of 07/14/2024) Active Problems Problem Noted Date Diagnosed Date [...] as of this encounter (statuses as of 07/14/2024) Resolved Problems Problem Noted Date Diagnosed Date [...] as of this encounter (statuses as of 07/14/2024) Immunizations Name Administration Dates Next Due COVID-19 [...] Job Start Date Job End Date [employer] Not on file Not on file Not on file documented as of this encounter Miscellaneous Notes * Telephone Encounter - Magaly Clark LPN - 07/14/2024 11:33 AM EST Medication list has been faxed to [phone] on 07/14. * Telephone Encounter - Alesia Vernon OSA - 07/14/2024 10:26 AM EST Kera from [facility] calling to request copy of updated med list fax [phone] * Addendum Note - Travon Summers MD - 07/12/2024 2:38 PM ESTAddended by: TRAVON SUMMERS on: 07/12/2024 02:38 PM Modules accepted: Orders * Telephone Encounter - Travon Summers MD - 07/12/2024 2:38 PM EST Script sent for 10mg solifenacin All other meds stay the same, agree Please inform HH * Telephone Encounter - Diana William LPN - 07/12/2024 1:00 PM EST Spoke with belen, home health nurse, need to verify pt's solifenacin succinate. We have her on 5 mg's , but the pt has been taking 10 mg of solifenacin succinate. Do you want her to stay on the 10 mg tablets. If so they will need a new order sent to them and will need an updated medication list faxed to them at [phone] Questions we can call they at [phone] [facility]. Please advise, thank you * Telephone Encounter - Jannie Denise OSA - 07/12/2024 12:36 PM EST Provider: [facility] calling they want to go over list of medication for this patient to be sure everything is correct Tele: [facility] [phone] documented in this encounter Plan of Treatment Upcoming Encounters Date Type Department Care Team (Late st Contact Info) Description 09/05/2024 4:00 PM EST Office Visit [facility] [address] [facility] [place] [address] Travon Summers MD [address] [facility] [place] [address] 05/02/2025 9:00 AM EDT Home Visit Care at Home [address] [place] [address] Roz Zarate PA-C [address] [place] [address] Health Maintenance Due Date Last Done Comments Cologuard 1998 Colonoscopy 1998 Fecal Occult Blood Test 1998 Sigmoidoscopy 1998 Mammogram 11/25/2023 11/24/2022, 06/01/2002 COVID-19 Vaccine ( season) 2024 11/06/2020, 09/27/2020 Influenza Vaccine (FLU shot) (#1) 2024 05/18/2023, 05/09/2022 GFR 04/01/2025 04/01/2024, 10/2022, 03/21/2023, Additional history exists HbA1c 04/01/2025 04/01/2024, 10/2022, 11/03/2022, Additional history exists TSH 04/01/2025 04/01/2024, 10/2022, 11/03/2022, Additional history exists Adult Wellness Visit 05/03/2025 05/03/2024 Depression Monitoring 05/03/2025 05/03/2024 Albumin/Creatinine Ratio 05/20/2025 05/20/2022 DXA Scan 07/27/2025 07/27/2023, 07/27/2023 DTap/Tdap Vaccines (2 - Td or Tdap) 10/31/2032 10/31/2022 Pneumococcal Vaccine: 50+ Years Completed 05/09/2022 VITAMIN D LEVEL ONCE IN A LIFETIME-USE SMARTSET# [id number] Completed 11/03/2022, 05/09/2022 Diabetic Eye Exam Discontinued [...] as of this encounter Visit Diagnoses Diagnosis Urge incontinence of urine- Primary Urge incontinence documented in this encounter Care Teams Vault Installer Relationship Specialty Start Date End Date Travon Summers MD PCP - General Family Medicine 04/05/21 documented as of this encounter
--- OUTSIDE RECORDS SUMMARY | 2024-07-26 22:18 | External Medical Summary | Summary of Care ---
Author Name Unknown Organization [facility] Address [address] [facility] [place] [address] Phone [phone] Care Team Providers Care Strip Polisher Name Role Phone Luzma Yu MD Primary Care Provid er Reason for Visit * Reason Comments Hospital Follow-Up Low BPWhen she was s een they pushed fluids to keep her hydrated Encounter Details Date Type Department Care Team (Late st Contact Info) Description 07/11/2024 2:00 PM EST [facility] [address] [facility] [place] [address] Luzma Yu MD [address] [facility] [place] [id number] Hypotension due to hypovolemia*; Dyslipidemia, goal to be determined; Acquired hypothyroidism; Prediabetes; Chronic systolic heart failure (HCC); Osteoporosis without current pathological fracture, unspecified osteoporosis type; Mild dementia associated with alcoholism, without behavioral disturbance, psychotic disturbance, mood disturbance, or anxiety ([facility]); Alcohol use disorder, severe, in early remission ([facility]) Allergies Active Allergy Reactions Criticality Noted Date Comments Adhesive Tape 01/22/2001 local skin reaction Wound Dressings 05/13/2022 Other reaction(s): Skin irritation Aspirin 04/05/2021 Other reaction(s): Stomach upset Latex Hives 04/05/2021 Metformin Diarrhea High 06/03/2024 Penicillins 10/13/2003 hives documented as of this encounter (statuses as of 07/12/2024) Medications ECOTRIN LOW STRENGTH 81 MG OR [...] 06/01/2024 11:24 AM EST 05/30/20 24 Active Solifenacin Succinate 5 MG Oral Tablet (VESIcare) Take 1 Tablet by mouth in the morning. Active Carvedilol 12.5 MG Oral Tablet (Coreg) [...] tablet. 12 Tablet 3 06/24/20 24 Active Hospital, Clinic, or Other Facility Administered [...] as of this encounter (statuses as of 07/12/2024) Active Problems Problem Noted Date Diagnosed Date [...] as of this encounter (statuses as of 07/12/2024) Resolved Problems Problem Noted Date Diagnosed Date [...] as of this encounter (statuses as of 07/12/2024) Immunizations Name Administration Dates Next Due COVID-19 mRNA, LNP-s, No Pre serve, 2-Dose Series (Moderna) 11/06/2020,09/27/2020 Pneumococcal Conjugate Vaccine, 20-valent (Prevn ar20) 05/09/2022 Seasonal Influenza, Quadrivalent Hd (Fluzone Hd) 05/18/2023,05/09/2022 TDAP (age 10 and older)(Boostrix) 10/31/2022 documented as of this encounter Social History Tobacco Use Types Packs/Day Years Used Date Smoking Tobacco: Never Passive Smoke Exposure: Never Smokeless Tobacco: Never Tobacco Cessation:Counseling Given: [...] Job Start Date Job End Date [employer] Not on file Not on file Not on file documented as of this encounter Last Filed Vital Signs Vital Sign Reading Time Taken Comments Blood Pressure 100/62 07/11/2024 2:01 PM EST Pulse 75 07/11/2024 2:01 PM EST Temperature 36.5 C (97.7 F) 07/11/2024 2:01 PM ES T Respiratory Rate 18 07/11/2024 2:01 PM EST Oxygen Saturation 97% 07/11/2024 2:01 PM EST Inhaled Oxygen Concentration - - Weight 55.4 kg (122 lb 3.2 oz) 07/11/2024 2:01 P M EST Height 157.5 cm (5' 2") 07/11/2024 2:01 PM EST Body Mass Index 22.35 07/11/2024 2:01 PM EST documented in this encounter Progress Notes * Luzma Yu MD - 07/11/2024 2:13 PM EST ASSESSMENT / PLAN: Codi Painter is a 68 year old female with PMHx h/o alcohol abuse for many years now in remission, ischemic cardiomyopathy / CAD / s/p stenting / biventricular ICD (medtronic) pacemaker / HTN / HLD / osteoporosis / hypothyroid - here for ER follow up Hypotension/hypovolemia John will monitor BP twice daily If systolic is <90 or diast <60, he will hold BP med -we reviewd BP meds extensively - Imdur once daily (AM), entresto and carvedilol twice daily Other chronic conditions: ICM / pacemaker [facility]Dr Dailey Cont carvedilol 6.125 BID/ Cont statin / imdur / nitro as needed Apparently ASA gives her GI issues Osteoporosis Cont PO alendronate (started 2020) 2023 Dexa - The present treatment with Fosamax/Alendronate may be helping to maintain bone mineral density. in this patient and should be continued. Repeat in 2025 Hypothyroidism Current dose 50 mcg daily Urge incontinence stable Cont solifenacin CKD 3a Stable - follows w Nephro annually Prediabetes Stable, diet controlled Metformin dc'd in setting of weakness, diarrhea Will continue to monitor A1C Memory changes / h/o alcohol abuse Alcohol use is 1 drink per setting Memory decline is stable Historically decline further testing or imaging for work up of dementia, which is chronic, mild, but progressive over the last few years. Alcohol abuse remains in early remission. trial low dose aricept - DC d while inpatient due to concern for prolonged QT (no cardiac arrhythmia) Supportive care Chronic cough Established w pulmonology - Dr. Drummond Pending studies Follow Up: Return for Fasting Labs 2-5 Days Before Next Visit. | For: Fasting Labs 2-5 Days Before Next Visit | Check-out note: Keep appt September Plan for fasting labs prior to that appt - orders are in Hypotension due to hypovolemia (Primary) - HEMOGLOBIN A1C; Future; Expected date: 09/02/2024 - LIPID PANEL WITH DIRECT LDL IF TG IS HIGH; Future; Expected date: 09/02/2024 - COMPREHENSIVE METABOLIC PANEL; Future; Expected date: 09/02/2024 - CBC WITH WBC DIFFERENTIAL; Future; Expected date: 09/02/2024 - TSH WITH FREE T4 IF INDICATED; Future; Expected date: 09/02/2024 Dyslipidemia, goal to be determined - HEMOGLOBIN A1C; Future; Expected date: 09/02/2024 - LIPID PANEL WITH DIRECT LDL IF TG IS HIGH; Future; Expected date: 09/02/2024 - COMPREHENSIVE METABOLIC PANEL; Future; Expected date: 09/02/2024 - CBC WITH WBC DIFFERENTIAL; Future; Expected date: 09/02/2024 - TSH WITH FREE T4 IF INDICATED; Future; Expected date: 09/02/2024 Acquired hypothyroidism - HEMOGLOBIN A1C; Future; Expected date: 09/02/2024 - LIPID PANEL WITH DIRECT LDL IF TG IS HIGH; Future; Expected date: 09/02/2024 - COMPREHENSIVE METABOLIC PANEL; Future; Expected date: 09/02/2024 - CBC WITH WBC DIFFERENTIAL; Future; Expected date: 09/02/2024 - TSH WITH FREE T4 IF INDICATED; Future; Expected date: 09/02/2024 Prediabetes - HEMOGLOBIN A1C; Future; Expected date: 09/02/2024 - LIPID PANEL WITH DIRECT LDL IF TG IS HIGH; Future; Expected date: 09/02/2024 - COMPREHENSIVE METABOLIC PANEL; Future; Expected date: 09/02/2024 - CBC WITH WBC DIFFERENTIAL; Future; Expected date: 09/02/2024 - TSH WITH FREE T4 IF INDICATED; Future; Expected date: 09/02/2024 Chronic systolic heart failure (HCC) - HEMOGLOBIN A1C; Future; Expected date: 09/02/2024 - LIPID PANEL WITH DIRECT LDL IF TG IS HIGH; Future; Expected date: 09/02/2024 - COMPREHENSIVE METABOLIC PANEL; Future; Expected date: 09/02/2024 - CBC WITH WBC DIFFERENTIAL; Future; Expected date: 09/02/2024 - TSH WITH FREE T4 IF INDICATED; Future; Expected date: 09/02/2024 Osteoporosis without current pathological fracture, unspecified osteoporosis type - HEMOGLOBIN A1C; Future; Expected date: 09/02/2024 - LIPID PANEL WITH DIRECT LDL IF TG IS HIGH; Future; Expected date: 09/02/2024 - COMPREHENSIVE METABOLIC PANEL; Future; Expected date: 09/02/2024 - CBC WITH WBC DIFFERENTIAL; Future; Expected date: 09/02/2024 - TSH WITH FREE T4 IF INDICATED; Future; Expected date: 09/02/2024 Mild dementia associated with alcoholism, without behavioral disturbance, psychotic disturbance, mood disturbance, or anxiety (HCC) Alcohol use disorder, severe, in early remission (HCC) Follow Up: Return for Fasting Labs 2-5 Days Before Next Visit. | For: Fasting Labs 2-5 Days Before Next Visit | Check-out note: Keep appt September Plan for fasting labs prior to that appt - orders are in If needed, prefers contact by: Ok to leave message on phone: SUBJECTIVE: Nursing Notes: Katy Meraz LPN 07/11/24 1410 Signed The patient has been properly identified by confirmation of name and date of . Chief Complaint Patient presents with Hospital Follow-Up Low BP When she was seen they pushed fluids to keep her hydrated HPI: Codi Painter is a 68 year old female. Here for recheck. Here for ER follow up Went by private vehicle 06/30/24 due to concern for weakness BP upon arrival to ED was 79/49. Was given IVF with repeat of 100/50 No medication changes made and was d/c to home to follow up with PCP I reviewed visit w patient over the phone and we reviewed monitoring blood pressure at home which as of then, they were not doing and did not have a BP cuff. I alerted pt's CM Has had home health services for PT/OT since discharge from hospital stay in May We had initially discussed inpatient rehab as her deconditioning appears to warrant it but pt and hsuband decided not to pursue that over the holidays. Today pt states she feels well Pt's also notes she is eating/drinking well but is concerned about her weight loss Reviewed sources 1- Patient Active Problem List Diagnosis GENERALIZED ANXIETY DIS FEM STRESS INCONTINENCE Atrioventricular block, complete (HCC) Cardiac pacemaker in situ Cardiac disease Paroxysmal ventricular tachycardia (HCC) Dyslipidemia, goal to be determined Venous insufficiency Major depressive disorder, recurrent episode, moderate (HCC) Scalp psoriasis Keratoacanthoma of forearm HTN, goal below 140/90 H/O heart artery stent Ischemic cardiomyopathy Transient atrial fibrillation (HCC) Hypothyroidism Osteoporosis H/O alcohol dependence (HCC) Prediabetes Generalized osteoarthritis Urge incontinence of urine Mild dementia associated with alcoholism, without behavioral disturbance, psychotic disturbance, mood disturbance, or anxiety (HCC) Alcohol use disorder, severe, in early remission (HCC) ICD (implantable cardioverter-defibrillator), biventricular, in situ Mixed hearing loss, bilateral Esophageal dysphagia Combined forms of age-related cataract of both eyes ILD (interstitial lung disease) (HCC) Traction bronchiectasis (HCC) Hypertensive heart and chronic kidney disease with heart failure and stage 1 through stage 4 chronic kidney disease, or chronic kidney disease (HCC) Hx of cholecystectomy Pulmonary nodule Chronic systolic heart failure (HCC) Fall Physical deconditioning Current Outpatient Medications Medication Sig Dispense Refill Acetaminophen 500 MG Oral Tablet (Tylenol) Take 1 Tablet by mouth every 6 hours as needed. Take 2 tablets every 8 hours-mild pain/fever traMADol HCl 50 MG Oral Tablet (Ultram) Take 1 Tablet by mouth daily as needed for Pain, Severe. Take 1000mg tylenol every 6-8 hours first. If no improvement in pain, then can use tramadol. 90 Tablet0 Atorvastatin Calcium 80 MG Oral Tablet (Lipitor) [...] needed for Pain, Chest. 90 Tablet 3 Gabapentin 100 MG Oral Capsule (Neurontin) Take 1 Capsule by mouth at bedtime. 90 Capsule 3 Levothyroxine Sodium 50 MCG Oral Tablet (Levoxyl) Take 1 Tablet by mouth daily first thing in the morning. (at least 30 min prior to breakfast or other meds) 90 Tablet 3 Cefuroxime Axetil 500 MG Oral Tablet (Ceftin) Take 1 Tablet by mouth in the morning and 1 Tablet before bedtime. Ciprofloxacin HCl 500 MG Oral Tablet (Cipro) Take 1 Tablet by mouth in the morning and 1 Tablet before bedtime. guaiFENesin ER 600 MG Oral Tablet Extended Release 12 Hour (Humibid LA) Take 1 Tablet by mouth in the morning and 1 Tablet before bedtime. Advanced Probiotic Oral Capsule Take 1 Capsule by mouth daily. Entresto 49-51 MG Oral Tablet (sacubitril-valsartan 49-51 mg per tab) Take 1 Tablet by mouth in themorning and 1 Tablet before bedtime. 180 Tablet 3 Solifenacin Succinate 5 MG Oral Tablet (VESIcare) Take 1 Tablet by mouth in the morning. Carvedilol 12.5 MG Oral Tablet (Coreg) Take 1 Tablet by mouth in the morning and 1 Tablet before bedtime. 200 Tablet 0 Alendronate Sodium 70 MG Oral Tablet (Fosamax) Take 1 Tablet by mouth once a week. with 8 oz. water30 minutes before first meal of the day. Remain upright for 30 min after taking tablet. 12 Tablet 3 ECOTRIN LOW STRENGTH 81 MG OR TBEC one by mouth daily 0 0 Current Facility-Administered Medications Medication Dose Route Frequency Provider Last Rate Last Admin Albuterol Sulfate (Proventil) (5 MG/ML) 0.5% *conc* inhalation solution 2.5 mg 2.5 mg Nebulizer PRN2.5 mg at 04/12/24 1251 Albuterol Sulfate (Proventil) (2.5 MG/3ML) 0.083% inhalation solution 2.5 mg 2.5 mg Nebulizer PRN OBJECTIVE: BP 100/62 | Pulse 75 | Temp 97.7 F (36.5 C) | Resp 18 | Ht 5' 2" (1.575 m) | Wt 122 lb 3.2 oz (55.4 kg) | LMP 12/22/2001 | SpO2 97% | BMI 22.35 kg/m | BSA 1.56 m Vitals reviewed and is normotensive / [...] Normal affect. Fluent speech. Luzma Yu MD [address] [address] There are no Patient Instructions on file for this visit. documented in this encounter Nursing Notes * Katy Meraz LPN - 07/11/2024 2:10 PM EST The patient has been properly identified by confirmation of name and date of . Chief Complaint Patient presents with Hospital Follow-Up Low BP When she was seen they pushed fluids to keep her hydrated documented in this encounter Plan of Treatment Upcoming Encounters Date Type Department Care Team (Late st Contact Info) Description 07/14/2024 8:15 AM EST Imaging Radiology [address] [place] [address] 07/14/2024 9:00 AM EST Cardiac Studies Cardiac Studies, [address] [place] [address] 07/14/2024 10:00 AM EST Imaging Radiology [address] [place] [address] 09/05/2024 4:00 PM EST Office Visit [address] [place] [phone] Luzma Yu MD [address] [facility] [place] [place] [address] 05/02/2025 9:00 AM EDT Home Visit Care at Home [address] [place], [place] [id number] Roz Zarate PA-C [address] [place], [place] [phone] Scheduled Orders Name Type Priority Associated Diagnoses Orde r Schedule HEMOGLOBIN A1C Lab Routine Dyslipidemia, goal to be determined Acquired hypothyroidism Prediabetes Chronic systolic heart failure (HCC) Osteoporosis without current pathological fracture, unspecified osteoporosis type Hypotension due to hypovolemia Expected: 09/02/2024 (Approximate), Expires: 07/11/2025 LIPID PANEL WITH DIRECT LDL IF TG IS HIGH Lab Routine Dyslipidemia, goal to be determined Acquired hypothyroidism Prediabetes Chronic systolic heart failure (HCC) Osteoporosis without current pathological fracture, unspecified osteoporosis type Hypotension due to hypovolemia Expected: 09/02/2024 (Approximate), Expires: 07/11/2025 COMPREHENSIVE METABOLIC PANEL Lab Routine Dyslipidemia, goal to be determined Acquired hypothyroidism Prediabetes Chronic systolic heart failure (HCC) Osteoporosis without current pathological fracture, unspecified osteoporosis type Hypotension due to hypovolemia Expected: 09/02/2024 (Approximate), Expires: 07/11/2025 CBC WITH WBC DIFFERENTIAL Lab Routine Dyslipidemia, goal to be determined Acquired hypothyroidism Prediabetes Chronic systolic heart failure (HCC) Osteoporosis without current pathological fracture, unspecified osteoporosis type Hypotension due to hypovolemia Expected: 09/02/2024 (Approximate), Expires: 07/11/2025 TSH WITH FREE T4 IF INDICATED Lab Routine Dyslipidemia, goal to be determined Acquired hypothyroidism Prediabetes Chronic systolic heart failure (HCC) Osteoporosis without current pathological fracture, unspecified osteoporosis type Hypotension due to hypovolemia Expected: 09/02/2024 (Approximate), Expires: 07/11/2025 Health Maintenance Due Date Last Done Comments [...] D LEVEL ONCE IN A LIFETIME-USE SMARTSET# [id number] Completed 11/03/2022, 05/09/2022 Diabetic Eye Exam Discontinued [...] as of this encounter Visit Diagnoses Diagnosis Hypotension due to hypovolemia- Primary Dyslipidemia, goal to be determined Other and unspecified hyperlipidemia Acquired hypothyroidism Unspecified hypothyroidism Prediabetes Other abnormal glucose Chronic systolic heart failure (HCC) Chronic systolic heart failure Osteoporosis without current pathological fracture, unspecified osteoporosis type Mild dementia associated with alcoholism, without behavioral disturbance, psychotic disturbance, mood disturbance, or anxiety (HCC) Alcohol use disorder, severe, in early remission (HCC) documented in this encounter Care Teams Strip Polisher Relationship Specialty Start Date End Date Luzma Yu MD PCP - General Family Medicine 04/05/21 documented as of this encounter
--- OUTSIDE RECORDS SUMMARY | 2024-07-26 22:18 | External Medical Summary | Summary of Care ---
Author Name Unknown Organization [facility] Address [address] [facility] [place] [address] Phone [phone] Care Team Providers Care Physics Teacher Name Role Phone Luzma Yu MD Primary Care Provid er Reason for Visit * Reason Comments Hospital Follow-Up Low BPWhen she was s een they pushed fluids to keep her hydrated Encounter Details Date Type Department Care Team (Late st Contact Info) Description 07/11/2024 2:00 PM EST Office Visit [facility] [address] [facility] [place] [address] Luzma Yu MD [address] [facility] [place] [id number] Hypotension due to hypovolemia*; Dyslipidemia, goal to be determined; Acquired hypothyroidism; Prediabetes; Chronic systolic heart failure (HCC); Osteoporosis without current pathological fracture, unspecified osteoporosis type; Mild dementia associated with alcoholism, without behavioral disturbance, psychotic disturbance, mood disturbance, or anxiety ([facility]); Alcohol use disorder, severe, in early remission ([facility]) Allergies Active Allergy Reactions Criticality Noted Date Comments Adhesive Tape 01/22/2001 local skin reaction Wound Dressings 05/13/2022 Other reaction(s): Skin irritation Aspirin 04/05/2021 Other reaction(s): Stomach upset Latex Hives 04/05/2021 Metformin Diarrhea High 06/03/2024 Penicillins 10/13/2003 hives documented as of this encounter (statuses as of 07/11/2024) Medications ECOTRIN LOW STRENGTH 81 MG OR [...] as of this encounter (statuses as of 07/11/2024) Active Problems Problem Noted Date Diagnosed Date [...] as of this encounter (statuses as of 07/11/2024) Resolved Problems Problem Noted Date Diagnosed Date [...] as of this encounter (statuses as of 07/11/2024) Immunizations Name Administration Dates Next Due COVID-19 [...] Job Start Date Job End Date [employer] Not on file Not on file Not [...] chronic conditions: ICM / pacemaker [facility] Dailey Cont carvedilol 6.125 BID/ [...] Normal affect. Fluent speech. Luzma Yu MD [address] [address] There are no Patient Instructions on file [...] Description 07/14/2024 8:15 AM EST Imaging Radiology [address] [place] [address] 07/14/2024 9:00 AM EST Cardiac Studies Cardiac Studies, [address] [place] [address] 07/14/2024 10:00 AM EST Imaging Radiology [address] [place] [address] 09/05/2024 4:00 PM EST Office Visit [address] [place] [phone] Luzma Yu MD [address] [facility] [place] [place] [address] 05/02/2025 9:00 AM EDT Home Visit Care at Home [address] [place], [place] [phone] Roz Zarate PA-C [address] [place], [place] [phone] Scheduled Orders Name Type Priority Associated Diagnoses [...] D LEVEL ONCE IN A LIFETIME-USE SMARTSET# [id number] Completed 11/03/2022, 05/09/2022 Diabetic Eye Exam Discontinued [...] (HCC) documented in this encounter Care Teams Physics Teacher Relationship Specialty Start Date End Date Luzma Yu MD PCP - General Family Medicine 04/05/21 documented as of this encounter
--- OUTSIDE RECORDS SUMMARY | 2024-07-26 22:18 | External Medical Summary | Summary of Care ---
Author Name Unknown Organization [facility] Address [address] [place] [address] Phone [phone] Care Team Providers Care Choir Teacher Name Role Phone Travon Summers MD Primary Care Provid er Reason for Visit * Reason Onset Date Comments Advice 07/12/2024 Encounter Details Date Type Department Care Team (Late st Contact Info) Description 07/12/[address] [facility] [address] [place] [address] Services, Scheduling [address] [place] [address] Advice Allergies Active Allergy Reactions Criticality Noted [...] disorder one by mouth daily 0 0 004 Active Acetaminophen 500 MG Oral Tablet [...] tramadol. 90 Tablet 4 3:34 PM EDT 024 Active Atorvastatin Calcium 80 MG Oral Tablet (Lipitor)Indicati ons:Dyslipidemia, goal to be determined,Ischem ic cardiomyopathy Take 1 Tablet by mouth in the morning. 90 Tablet 3 4 12:06 PM EST 024 Active Isosorbide Mononitrate ER 120 MG Oral [...] ABUSE-CONTINUOUS 10/19/2003 Menopause 10/07/2002 04/28/2024 Abnormal mammogram 10/03/200210/29/ 4 BENIGN HYPERTENSION 08/02/2002 03/15/20 24 Chemical [...] Job Start Date Job End Date [employer] Not on file Not on file Not on file documented as of this encounter Miscellaneous Notes * Addendum Note - Travon Summers MD - 07/12/2024 2:38 PM ESTAddended by: TRAVON SUMMERS on: 07/12/2024 02:38 PM Modules accepted: Orders * Telephone Encounter - Travon Summers MD - 07/12/2024 2:38 PM EST Script sent for 10mg solifenacin All other meds stay the same, agree Please inform HH * Telephone Encounter - Diana William LPN - 07/12/2024 1:00 PM EST Spoke with [facility], need to verify pt's solifenacin succinate. We have her on 5 mg's , but the pt has been taking 10 mg of solifenacin succinate. Do you want her to stay on the 10 mg tablets. If so they will need a new order sent to them and will need an updated medication list faxed to them at [phone] Questions we can call they at [phone] [facility]. Please advise, thank you * Telephone Encounter - Jannie Denise OSA - 07/12/2024 12:36 PM EST Provider: [facility] calling they want to go over list of medication for this patient to be sure everything is correct Tele: [facility] [phone] documented in this encounter Plan of Treatment Upcoming Encounters Date Type Department Care Team (Late st Contact Info) Description 07/14/2024 8:15 AM EST Imaging Radiology [address] [facility] [address] 07/14/2024 9:00 AM EST Cardiac Studies [facility], [facility] [address] 07/14/2024 10:00 AM EST Imaging Radiology [address] [facility] [place] [address] 09/05/2024 4:00 PM EST Office Visit Family Practice, [facility] [address] [facility] [place] [address] Travon Summers MD [address] [place] [address] 05/02/2025 9:00 AM EDT Home Visit Care at Home [address] [place] [address] Roz Zarate PA-C [address] [place] [address] Health Maintenance Due Date Last Done Comments [...] D LEVEL ONCE IN A LIFETIME-USE SMARTSET# [id number] Completed 11/03/2022, 05/09/2022 Diabetic Eye Exam Discontinued [...] incontinence documented in this encounter Care Teams Choir Teacher Relationship Specialty Start Date End Date Travon Summers MD PCP - General Family Medicine 04/05/21 documented as of this encounter
--- OUTSIDE RECORDS SUMMARY | 2024-07-26 22:18 | External Medical Summary | Summary of Care ---
Author Name Unknown Organization [facility] Address [address] [place] [address] Phone [phone] Care Team Providers Care Acid Plant Helper Name Role Phone Travon Summers MD Primary Care Provid er Reason for Visit * Reason Onset Date Comments Advice 07/12/2024 Med Request 07/12/2024 Encounter Details Date Type Department Care Team (Late st Contact Info) Description 07/12/2024 Telephone [facility] [address] [place] [address] Services, Scheduling [address] [place] [address] Advice; Med Request Allergies Active Allergy Reactions [...] Job Start Date Job End Date [employer] Not on file Not on file Not on file documented as of this encounter Miscellaneous Notes * Telephone Encounter - Alesia Vernon OSA - 07/14/2024 10:26 AM EST Kera vizcaino [facility] calling to request copy of updated med list fax [phone] * Addendum Note - Travon Summers MD [...] updated medication list faxed to them at [phone] Questions we can call they at [phone] [facility]. Please advise, thank you * Telephone Encounter - Jannie Denise OSA - 07/12/2024 12:36 PM EST [facility] they want to go over list of medication for this patient to be sure everything is correct Tele: [facility] [phone] documented in this encounter Plan of Treatment Upcoming Encounters Date Type Department Care Team (Late st Contact Info) Description 09/05/2024 4:00 PM EST Office Visit [facility] [place] [address] [place] [address] Travon Summers MD [address] [place] [address] 05/02/2025 9:00 AM EDT Home Visit Care at Home [address] [place] [address] Roz Zarate PA-C [address] [place] [address] Health Maintenance Due Date Last Done Comments Cologuard 1998 Colonoscopy 1998 Fecal Occult Blood Test 1998 Sigmoidoscopy 1998 Mammogram 11/25/2023 11/24/2022, 06/01/2002 COVID-19 Vaccine ( season) 2024 11/06/2020, 09/27/2020 Influenza Vaccine (FLU shot) (#1) 2024 05/18/2023, 05/09/2022 GFR 04/01/2025 04/01/2024, 10/2022, 03/21/2023, Additional history exists HbA1c 04/01/2025 04/01/2024, 120 10/2022, 11/03/2022, Additional history exists TSH 04/01/2025 04/01/2024, 120 10/2022, 11/03/2022, Additional history exists Adult Wellness Visit 05/03/2025 05/03/2024 Depression Monitoring 05/03/2025 05/03/2024 Albumin/Creatinine Ratio 05/20/2025 05/20/2022 DXA Scan 07/27/2025 07/27/2023, 07/27/2023 DTap/Tdap Vaccines (2 - Td or Tdap) 10/31/2032 10/31/2022 Pneumococcal Vaccine: 50+ Years Completed 05/09/2022 VITAMIN D LEVEL ONCE IN A LIFETIME-USE SMARTSET# [id number] Completed 11/03/2022, 05/09/2022 Diabetic Eye Exam Discontinued [...] incontinence documented in this encounter Care Teams Acid Plant Helper Relationship Specialty Start Date End Date Travon Summers MD PCP - General Family Medicine 04/05/21 documented as of this encounter
--- OUTSIDE RECORDS SUMMARY | 2024-07-26 22:18 | External Medical Summary | Summary of Care ---
Author Name Unknown Organization [facility] Address [address] [facility] [place] [address] Phone [phone] Care Team Providers Care Administration Internship Name Role Phone Luzma Yu MD Primary Care Provid er Encounter Details Date Type Department Care Team (Late st Contact Info) Description 07/07/2024 Population Health External Data Unspecified Department Allergies [...] 3 06/01/2024 11:24 AM EST 05/30/20 Active Solifenacin Succinate 5 MG Oral Tablet (VESIcare) Take 1 Tablet by mouth in the morning. Active Carvedilol 12.5 MG Oral Tablet (Coreg) Take 1 Tablet by mouth in the morning and 1 Tablet before bedtime. 200 Tablet 06/03/2024 8:09 AM EST 05/31/20 Active Alendronate Sodium 70 MG Oral Tablet (Fosamax)Indicatio ns:Age-related osteoporosis without current pathological fracture Take 1 Tablet by mouth once a week. with 8 oz. water 30 minutes before first meal of the day. Remain upright for 30 min after taking tablet. 12 Tablet 3 06/24/20 Active Hospital, Clinic, or Other Facility Administered [...] Abnormal mammogram 10/03/2002 BENIGN HYPERTENSION 08/02/2002 03/15/20 24 Chemical dermatitis [...] Job Start Date Job End Date [employer] Not on file Not on file Not on file documented as of this encounter Plan of Treatment Upcoming Encounters Date Type Department Care Team (Late st Contact Info) Description 07/14/2024 8:15 AM EST Imaging Rad[facility] [address] [facility] [place] [address] 07/14/2024 9:00 AM EST Cardiac Studies Cardiac Studies, [facility] [address] [facility] [place] [address] 07/14/2024 10:00 AM EST Imaging Radiology [facility] 1st [facility] [address] [place] [address] 09/05/2024 4:00 PM EST Office Visit Family Practice, [facility] [address] [facility] [place] [address] Luzma Yu MD 226 [facility] [place] [address] 05/02/2025 9:00 AM EDT Home Visit Care at Home [address] [place] [address] Roz Zarate PA-C [address] [place] [address] Health Maintenance Due Date Last Done Comments [...] D LEVEL ONCE IN A LIFETIME-USE SMARTSET# [id number] Completed 11/03/2022, 05/09/2022 Diabetic Eye Exam Discontinued [...] filedocumented as of this encounter Care Teams Administration Internship Relationship Specialty Start Date End Date Luzma Yu MD PCP - General Family Medicine 04/05/21 documented as of this encounter
--- OUTSIDE RECORDS SUMMARY | 2024-07-26 22:18 | External Medical Summary | Summary of Care ---
Author Name Unknown Organization [facility] Address [address] [place] [address] Phone [phone] Care Team Providers Care Asphalt Engineer Name Role Phone Travon Summers MD Primary Care Provid er Reason for Visit * Reason Onset Date Comments Advice 07/12/2024 Encounter Details Date Type Department Care Team (Late st Contact Info) Description 07/12/2024 Telephone [facility] [address] [place] [address] Services, Scheduling [address] [place] [address] Advice Allergies Active Allergy Reactions Criticality Noted [...] Job Start Date Job End Date [employer] Not on file Not on file [...] updated medication list faxed to them at [phone] Questions we can call they at [phone] [facility]. Please advise, thank you * Telephone Encounter - Jannie Denise OSA - 07/12/2024 12:36 PM EST Provider: [facility] calling they want to go over list of medication for this patient to be sure everything is correct Tele: [facility] [phone] documented in this encounter Plan of Treatment Upcoming Encounters Date Type Department Care Team (Late st Contact Info) Description 07/14/2024 8:15 AM EST Imaging Radiology [address] [facility] [address] 07/14/2024 9:00 AM EST Cardiac Studies Cardiac Studies, [facility] [address] 07/14/2024 10:00 AM EST Imaging Radiology [address] 132 [facility] [place] [address] 09/05/2024 4:00 PM EST Office Visit Family Practice, [facility] [address] [place] [address] Travon Summers MD [address] [place] [address] 05/02/2025 9:00 AM EDT Home Visit Care at Home [address] [place] [address] Roz Zarate PA-C [address] [place] [address] Health Maintenance Due Date Last Done Comments [...] D LEVEL ONCE IN A LIFETIME-USE SMARTSET# [id number] Completed 11/03/2022, 05/09/2022 Diabetic Eye Exam Discontinued [...] incontinence documented in this encounter Care Teams Asphalt Engineer Relationship Specialty Start Date End Date Travon Summers MD PCP - General Family Medicine 04/05/21 documented as of this encounter
--- OUTSIDE RECORDS SUMMARY | 2024-07-26 22:18 | External Medical Summary | Summary of Care ---
Author Name Unknown Organization [facility] Address [address] [place] [address] Phone [phone] Care Team Providers Care Level Vial Curvature Gauger Name Role Phone Travon Summers MD Primary Care Provid er Reason for Visit * Reason Onset Date Comments Advice 07/12/2024 Encounter Details Date Type Department Care Team (Late st Contact Info) Description 07/12/2024 Telephone [facility] [address] [place] [address] Services, Scheduling [address] [place] [address] Advice Allergies Active Allergy Reactions Criticality Noted [...] Job Start Date Job End Date [employer] Not on file Not on file Not [...] updated medication list faxed to them at [phone] Questions we can call they at [phone] [facility]. Please advise, thank you * Telephone Encounter - Jannie Denise OSA - 07/12/2024 12:36 PM EST Provider: [facility] calling they want to go over list of medication for this patient to be sure everything is correct Tele: [facility] [phone] documented in this encounter Plan of Treatment Upcoming Encounters Date Type Department Care Team (Late st Contact Info) Description 07/14/2024 8:15 AM EST Imaging Radiology [address] [facility] [address] 07/14/2024 9:00 AM EST Cardiac Studies Cardiac Studies, [facility] [address] 07/14/2024 10:00 AM EST Imaging Radiology [address] 132 [facility] [place] [address] 09/05/2024 4:00 PM EST Office Visit Family Practice, [facility] 226 [place] [address] Travon Summers MD [address] [place] [address] 05/02/2025 9:00 AM EDT Home Visit Care at Home [address] [place] [address] Roz Zarate PA-C [address] [place] [address] Health Maintenance Due Date Last Done Comments [...] D LEVEL ONCE IN A LIFETIME-USE SMARTSET# [id number] Completed 11/03/2022, 05/09/2022 Diabetic Eye Exam Discontinued [...] incontinence documented in this encounter Care Teams Level Vial Curvature Gauger Relationship Specialty Start Date End Date Travon Summers MD PCP - General Family Medicine 04/05/21 documented as of this encounter
--- OUTSIDE RECORDS SUMMARY | 2024-07-26 22:18 | External Medical Summary | Summary of Care ---
Author Name Unknown Organization [facility] Address [address] [place] [address] Phone [phone] Care Team Providers Care Underwriting Support Specialist Name Role Phone Luzma Yu MD Primary Care Provid er Encounter Details Date Type Department Care Team (Late st Contact Info) Description 07/19/2024 Telephone [facility] [place] [address] [address] Luzma Yu MD 226 [facility] [place] [address] Allergies Active Allergy Reactions Criticality Noted Date Comments Adhesive Tape 01/22/2001 local skin reaction Wound Dressings 05/13/2022 Other reaction(s): Skin irritation Aspirin 04/05/2021 Other reaction(s): Stomach upset Latex Hives 04/05/2021 Metformin Diarrhea High 06/03/2024 Penicillins 10/13/2003 hives documented as of this encounter (statuses as of 07/19/2024) Medications ECOTRIN LOW STRENGTH 81 MG OR [...] as of this encounter (statuses as of 07/19/2024) Active Problems Problem Noted Date Diagnosed Date [...] as of this encounter (statuses as of 07/19/2024) Resolved Problems Problem Noted Date Diagnosed Date [...] as of this encounter (statuses as of 07/19/2024) Immunizations Name Administration Dates Next Due COVID-19 [...] Job Start Date Job End Date [employer] [place] Not on file Not on file Not on file documented as of this encounter Miscellaneous Notes * Telephone Encounter - Bubb, Ethel A, BIOTECH PRODUCTION SPECIALIST - 07/19/2024 10:[address] Yu Providing you an update on BP readings We are having trouble getting the BP to transmit so we are going to get them set up with different device In the meantime he is recording all readings for our review Morning readings are 8 am; Evening readings are around 8 PM 1/7- 142/80; 110/65 /8- 130/64; 135/68 /- 130/63; 119/76 /- 128/75; 129/67 /- 178/89; 115/64 /- 123/83; 151/75 /- 153/80; 165/77 /- 146/73 I will continue to update you with readings and CM will continue to follow up with patient and spouse Thank you documented in this encounter Plan of Treatment Upcoming Encounters Date Type Department Care Team (Late st Contact Info) Description 09/05/2024 4:00 PM EST Office Visit [facility] [address] [place] [address] Luzma Yu MD [address] [place] [address] 05/02/2025 9:00 AM EDT Home Visit Care at Home [address] [place] [address] Roz Zarate PA-C [address] [place] [address] Health Maintenance Due Date Last Done Comments [...] D LEVEL ONCE IN A LIFETIME-USE SMARTSET# [id number] Completed 11/03/2022, 05/09/2022 Diabetic Eye Exam Discontinued [...] filedocumented as of this encounter Care Teams Underwriting Support Specialist Relationship Specialty Start Date End Date Luzma Yu MD PCP - General Family Medicine 04/05/21 documented as of this encounter
--- OUTSIDE RECORDS SUMMARY | 2024-07-26 22:18 | External Medical Summary | Summary of Care ---
Author Name Unknown Organization [facility] Address [address] [place] [address] Phone [phone] Care Team Providers Care Shoeshiner Name Role Phone Luzma Yu MD Primary Care Provid er Reason for Visit * Reason Onset Date Comments Emergency Department Follow-Up 07/01/2024 Encounter Details Date Type Department Care Team (Late st Contact Info) Description 07/01/2024 Telephone [facility] [address] [facility] [place] [address] Luzma Yu MD 226 [place] [address] Emergency Department Follow-Up Allergies Active Allergy Reactions Criticality Noted Date Comments Adhesive Tape 01/22/2001 local skin reaction Wound Dressings 05/13/2022 Other reaction(s): Skin irritation Aspirin 04/05/2021 Other reaction(s): Stomach upset Latex Hives 04/05/2021 Metformin Diarrhea High 06/03/2024 Penicillins 10/13/2003 hives documented as of this encounter (statuses as of 07/07/2024) Medications ECOTRIN LOW STRENGTH 81 MG OR [...] as of this encounter (statuses as of 07/07/2024) Active Problems Problem Noted Date Diagnosed Date Fall 06/03/2024 Physical deconditioning 06/03/2024 Hypertensive heart and chron ic kidney disease with heart failure and stage 1 through stage 4 chronic kidney disease, or chronic kidney disease 05/03/2024 Hx of cholecystectomy 05/03/2024 Pulmonary nodule 05/03/2024 Chronic systolic heart failure 05/03/2024 Seizure 05/03/2024 ILD (interstitial lung disease) 04/26/2024 Overview [...] as of this encounter (statuses as of 07/07/2024) Resolved Problems Problem Noted Date Diagnosed Date Resolved Date Unspecified dementia, mild, without behavioral disturbance, psychotic disturbance, mood disturbance, and anxiety 05/03/2024 05/03/2024 Unspecified dementia, mild, without behavioral disturbance, psychotic disturbance, mood disturbance, and anxiety 05/03/2024 05/03/2024 Food insecurity 04/18/2024 05/19/2024 Overview: Per Fresh [...] as of this encounter (statuses as of 07/07/2024) Immunizations Name Administration Dates Next Due COVID-19 [...] Job Start Date Job End Date [employer] Not on file Not on file Not on file documented as of this encounter Miscellaneous Notes * Telephone Encounter - Ly Mead MD - 07/07/2024 9:57 AM EST Noted * Telephone Encounter - Luzma Yu MD - 07/03/2024 5:19 PM EST I reviewed ER note from 06/30 - seen for hypotension - treated with gentle IVF, discharged home. I called and spoke with Codi and John - she is feeling better. John says he's not sure why her BPgets so low and what to do Gave education - that he will need to monitor her BP at home and if too low, will need to HOLD morning entresto dose. He states he doesn't have BP cuff and no money to buy. Sly Mendoza - can we arrange for BP cuff sent to patient's home? Dr. Mead - you will see pt for ER follow up 07/07 - please help educate and reiterate plan to hold entresto PRN if BP too low (systolic 105 or less, or diastolic 69 or less) or other parameters you prefer. He will need to check her BP twice a day since this medication is dosed twice daily. * Telephone Encounter - Lindsay Walters OSA - 07/01/2024 11:58 AM EST Patient's refused any other location other than [place]. Scheduled first available. 07/01/2024 * Telephone Encounter - Ethel Mendoza LPN - 07/01/2024 11:44 AM EST Patient was at [facility] ED on 05/31 for hypotension She is in need for ED f/u appt with provider Unclear source of hypotension and ED rec PCP follow up Spouse would like to get her in as soon as possible and he is expecting a call with an appointment Thank you documented in this encounter Plan of Treatment Upcoming Encounters Date Type Department Care Team (Late st Contact Info) Description 07/11/2024 2:00 PM EST Office Visit [facility] [place] [phone] Luzma Yu MD [address] [place] [address] 07/14/2024 8:15 AM EST Imaging Radiology [address] [address] 07/14/2024 9:00 AM EST Cardiac Studies Cardiac Studies, [address] [address] 07/14/2024 10:00 AM EST Imaging Radiology [address] [address] 09/05/2024 4:00 PM EST Office Visit [facility] [address] [place] [phone] Luzma Yu MD [address] [place] [address] 05/02/2025 9:00 AM EDT Home Visit Care at Home [address] [place] [address] Roz Zarate PA-C [address] [place] [address] Health Maintenance Due Date Last Done Comments [...] D LEVEL ONCE IN A LIFETIME-USE SMARTSET# [id number] Completed 11/03/2022, 05/09/2022 Diabetic Eye Exam Discontinued [...] filedocumented as of this encounter Care Teams Shoeshiner Relationship Specialty Start Date End Date Luzma Yu MD PCP - General Family Medicine 04/05/21 documented as of this encounter
--- OUTSIDE RECORDS SUMMARY | 2024-07-26 22:18 | External Medical Summary | Summary of Care ---
Author Name Unknown Organization [facility] Address [address] [place] [address] Phone [phone] Care Team Providers Care Data Conversion Analyst Name Role Phone Luzma Yu MD Primary Care Provid er Reason for Visit * Reason Onset Date Comments Advice 05/30/2024 Increased back p ain Encounter Details Date Type Department Care Team (Latest Contact Info) Description 05/30/2024 Mat Making Machine Tender Telephone Care Coordination and Integration [address] [place], [place] [id number] Keyonna Medina, CHARLIE [address] [place], [place] [id number] Advice (Increased back pain) Allergies Active Allergy Reactions Criticality Noted Date [...] Take 1 Capsule by mouth daily. Active Hospital, Clinic, or Other Facility Administered [...] No 06/21/2024 Does the household have a [facility] source of income? (Household - for ages [...] Job Start Date Job End Date [employer] [place] Not on file Not on file Not on file documented as of this encounter Miscellaneous Notes * Telephone Encounter - Keyonna Medina RN - 07/14/2024 8:38 AM EST Patient was seen by PCP on 06/03/2024 at which time an [facility] referral was not ordered. Will delete the pended referral and close this encounter. Keyonna Medina RN, BSN [facility] Mat Making Machine Tender [phone] * Telephone Encounter - Keyonna Medina RN - 05/30/2024 3:32 PM EST Patient notes her chronic back pain seems to be getting worse. Rates her pain 9- 10 out of 10. Taking 1000mg of Tylenol TID, which does help a little. Also uses a heating pad. Has not taken the Tramadol as she is fearful to do so. Her also does not want her to take any narcotic medication. Patient plans to discuss her pain further at [facility]'s (06/03/2024) post discharge appointment. Would patient benefit from a referral to [facility] for pain management? If so, a referral has been pendedfor your convenience. Thanks, Keyonna Medina RN, BSN Float Mat Making Machine Tender [phone] documented in this encounter Plan of Treatment Upcoming Encounters Date Type Department Care Team (Latest Contact Info) Description 07/14/2024 9:00 AM EST Cardiac Studies Cardiac Studies, [facility] 132 [facility] [place] [address] Dyspnea and respiratory abnormalities; Abnormal CT scan, chest 07/14/2024 10:00 AM EST Imaging Radiology [facility] 1st [facility], [address] [place] [address] Pneumonia of right lower lobe due to infectious organism; ILD (interstitial lung disease) (HCC); Traction bronchiectasis (HCC); Cardiac pacemaker in situ; Alcohol use disorder, severe, in early remission (HCC); Mild dementia associated with alcoholism, without behavioral disturbance, psychotic disturbance, mood disturbance, or anxiety (HCC); Hypoxia; Hospital discharge follow-up; Fall, initial encounter; Physical deconditioning; Fatigue, unspecified type; Generalized weakness 09/05/2024 4:00 PM EST Office Visit [facility] [address] [place] [address] Luzma Yu MD [address] [place] [address] 05/02/2025 9:00 AM EDT Home Visit Care at Home [address] [place] [address] Roz Zarate PA-C [address] [place], [place] [id number] Health Maintenance Due Date Last Done Comments [...] D LEVEL ONCE IN A LIFETIME-USE SMARTSET# [id number] Completed 11/03/2022, 05/09/2022 Diabetic Eye Exam Discontinued [...] of this encounter Visit Diagnoses Diagnosis Chronic back pain- Primary Backache, unspecified Dyspnea and respiratory abnormalities Other dyspnea and respiratory abnormality Abnormal CT scan, chest Nonspecific (abnormal) findings on radiological and other examination of other intrathoracic organs Pneumonia of right lower lobe due to infectious organism ILD (interstitial lung disease) (HCC) Postinflammatory pulmonary fibrosis Traction bronchiectasis (HCC) Bronchiectasis without acute exacerbation Cardiac pacemaker in situ Alcohol use disorder, severe, 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
--- OUTSIDE RECORDS SUMMARY | 2024-07-26 22:19 | External Medical Summary | Summary of Care ---
Author Name Unknown Organization [facility] Address [address] [place] [address] Phone [phone] Care Team Providers Care Lead Manufacturing Technician Name Role Phone Luzma Yu MD Primary Care Provid er Reason for Visit * Reason Onset Date Comments Emergency Department Follow-Up 07/01/2024 Encounter Details Date Type Department Care Team (Late st Contact Info) Description 07/01/2024 [facility] [address] [facility] [place] [address] Luzma Yu MD [address] [place] [address] Emergency Department Follow-Up Allergies Active Allergy Reactions Criticality Noted Date Comments Adhesive Tape 01/22/2001 local skin reaction Wound Dressings 05/13/2022 Other reaction(s): Skin irritation Aspirin 04/05/2021 Other reaction(s): Stomach upset Latex Hives 04/05/2021 Metformin Diarrhea High 06/03/2024 Penicillins 10/13/2003 hives documented as of this encounter (statuses as of 07/01/2024) Medications ECOTRIN LOW STRENGTH 81 MG OR [...] as of this encounter (statuses as of 07/01/2024) Active Problems Problem Noted Date Diagnosed Date [...] as of this encounter (statuses as of 07/01/2024) Resolved Problems Problem Noted Date Diagnosed Date [...] as of this encounter (statuses as of 07/01/2024) Immunizations Name Administration Dates Next Due COVID-19 [...] Job Start Date Job End Date [employer] Not on file Not on file Not on file documented as of this encounter Miscellaneous Notes * Telephone Encounter - Romeo, Lindsay, ARNALDO - 07/01/2024 11:58 AM EST Patient's refused any other location other than [place]. Scheduled first available. 07/01/2024 * Telephone Encounter - Ethel Mendoza LPN - 07/01/2024 11:44 AM EST Patient was at [facility] ED on 05/31 for hypotension She is [...] Team (Late st Contact Info) Description 07/07/2024 2:00 PM EST Office Visit [facility] [place] [address] [phone] Ly Mead MD [address] [place] [address] 07/14/2024 8:15 AM EST Imaging Radiology [address] [facility] [place] [address] 07/14/2024 9:00 AM EST Cardiac Studies Cardiac Studies, [facility] [address] [facility] [place] [address] 07/14/2024 10:00 AM EST Imaging Radiology [address] [facility] [place] [address] 09/05/2024 4:00 PM EST Office Visit [facility] [place] [address] [phone] Luzma Yu MD [address] [place] [address] 05/02/2025 9:00 AM EDT Home Visit Care at Home [address] [place] [address] Roz Zarate PA-C [address] [place] [address] Health Maintenance Due Date Last Done Comments [...] D LEVEL ONCE IN A LIFETIME-USE SMARTSET# [id number] Completed 11/03/2022, 05/09/2022 Diabetic Eye Exam Discontinued [...] as of this encounter Care Teams Lead Manufacturing Technician Relationship Specialty Start Date End Date Luzma Yu MD PCP - General Family Medicine 04/05/21 documented as of this encounter
--- OUTSIDE RECORDS SUMMARY | 2024-07-26 22:19 | External Medical Summary | Summary of Care ---
Author Name Unknown Organization [facility] Address [address] [place] [facility] [place] [address] Phone [phone] Care Team Providers Care Forger Helper Name Role Phone Luzma Yu MD Primary Care Provid er Reason for Visit * Reason Onset Date Comments Emergency Department Follow-Up 07/01/2024 Encounter Details Date Type Department Care Team (Late st Contact Info) Description 07/01/2024 Telephone [facility] [address] [facility] [place] [address] Luzma Yu MD 226 [place] [address] Emergency Department Follow-Up Allergies Active Allergy Reactions Criticality Noted Date Comments Adhesive Tape 01/22/2001 local skin reaction Wound Dressings 05/13/2022 Other reaction(s): Skin irritation Aspirin 04/05/2021 Other reaction(s): Stomach upset Latex Hives 04/05/2021 Metformin Diarrhea High 06/03/2024 Penicillins 10/13/2003 hives documented as of this encounter (statuses as of 07/03/2024) Medications ECOTRIN LOW STRENGTH 81 MG OR [...] as of this encounter (statuses as of 07/03/2024) Active Problems Problem Noted Date Diagnosed Date [...] as of this encounter (statuses as of 07/03/2024) Resolved Problems Problem Noted Date Diagnosed Date [...] as of this encounter (statuses as of 07/03/2024) Immunizations Name Administration Dates Next Due COVID-19 [...] Job Start Date Job End Date [employer] Not on file Not on file Not [...] Patient's refused any other location other than [place]. Scheduled first available. 07/01/2024 * Telephone Encounter - Ethel Mendoza LPN - 07/01/2024 11:44 AM EST Patient was at [facility] ED on 05/31 for hypotension [...] Description 07/07/2024 2:00 PM EST [facility] [address] [facility] [place] [phone] Ly Mead MD [address] [place] [address] 07/14/2024 8:15 AM EST Imaging Radiology [address] [address] 07/14/2024 9:00 AM EST Cardiac Studies Cardiac Studies, [address] [address] 07/14/2024 10:00 AM EST Imaging Radiology [address] [address] 09/05/2024 4:00 PM EST Office Visit [facility] [place] [address] [facility] [place] [phone] Luzma Yu MD [address] [place] [address] 05/02/2025 9:00 AM EDT Home Visit Care at Home [address] [place] [address] Roz Zarate PA-C [address] [place] [address] Health Maintenance Due Date Last Done Comments [...] D LEVEL ONCE IN A LIFETIME-USE SMARTSET# [id number] Completed 11/03/2022, 05/09/2022 Diabetic Eye Exam Discontinued [...] filedocumented as of this encounter Care Teams Forger Helper Relationship Specialty Start Date End Date Luzma Yu MD PCP - General Family Medicine 04/05/21 documented as of this encounter
--- OUTSIDE RECORDS SUMMARY | 2024-07-26 22:19 | External Medical Summary | Summary of Care ---
Author Name Unknown Organization [facility] Address [address] [place] [address] Phone [phone] Care Team Providers Care Crab Butcher Name Role Phone Luzma Yu MD Primary Care Provid er Reason for Visit * Reason Onset Date Comments Home Monitoring Orders Only 07/04/2024 Encounter Details Date Type Department Care Team (Latest Contact Info) Description 07/04/2024 Home Monitoring [facility] Integration [address] [place], [place] [phone] Roz Mulligan OSA [address] [place], [place] [phone] Vital capacity reduced* Allergies Active Allergy Reactions Criticality Noted Date Comments Adhesive Tape 01/22/2001 local skin reaction Wound Dressings 05/13/2022 Other reaction(s): Skin irritation Aspirin 04/05/2021 Other reaction(s): Stomach upset Latex Hives 04/05/2021 Metformin Diarrhea High 06/03/2024 Penicillins 10/13/2003 hives documented as of this encounter (statuses as of 07/04/2024) Medications ECOTRIN LOW STRENGTH 81 MG OR [...] as of this encounter (statuses as of 07/04/2024) Active Problems Problem Noted Date Diagnosed Date [...] as of this encounter (statuses as of 07/04/2024) Resolved Problems Problem Noted Date Diagnosed Date [...] as of this encounter (statuses as of 07/04/2024) Immunizations Name Administration Dates Next Due COVID-19 [...] Job Start Date Job End Date [employer] Not on file Not on file Not on file documented as of this encounter Progress Notes * Roz Mulligan OSA - 07/04/2024 11:39 AM EST Patient has been successfully enrolled to the [place] [address] Care Coordination and Integration (CCI) program and will be provided with the Current Health Wearable device to facilitate their participation in remote monitoring: Wearable BP O2 Scale Patient has been oriented to remote patient monitoring by their Parking Meter Mechanic. The family caseworker has also provided the patient with instruction and education regarding the program. Current health to assist with initial device set-up. Delivery Method: Vendor supplied Patient understands that this monitoring should not be used as a replacement for emergency and/or urgent care. If patient experiences any urgent symptoms, they are aware to call their site acquisition manager for additional instructions. In emergency situations, they will either call 911 or report directly to the ED for further evaluation. Member has been enrolled in per order: Order Information Date and Time Department Ordering Authorizing 07/04/2024 11:28 AM Care Coordination And Integration Ethel Mendoza LPN [place], Luzma Albright MD Comments Current Health Monitor Ordering Form: Method of Delivery: Vendor Supplied Enrollment Diagnosis: Vital Sign Trending; recent ED visit for intermittent unexplained hypotension Patient Requires Use of Sun: No Associated Diagnosis: Transient atrial fibrillation (HCC) (I48.91) Hypotension, unspecified hypotension type (I95.9) Problem/Desired Service from Electronic Operator: Current Health Monitor Ordering Form: Method of Delivery: Vendor Supplied Enrollment Diagnosis: Vital Sign Trending; recent ED visit for intermittent unexplained hypotension Patient Requires Use of Sun: No Order Specific Questions: Referral Priority: Within 10 days (routine) Where should this appointment be scheduled? [facility] Program Type: Complex Case Management Complex Case Management: Current Health Device(s) Requested: 26/01 Wearable Device(s) Requested: BP Cuff Device(s) Requested: Pulse Ox Alarm Settings: Standard per protocol After enrollmemnt member shows in as: Codi Painter [id number] Jul, WEARABLE BP O2 SCALE Jun 15, 6:30am Name Codi Painter Date of Jul, (age 68) Admission date Jul 04, 11:41am (0 hours) Kit name - Preferred language Niuean ([place]) Contact number Patient Sun Number - Patient care address [address], [place] [phone] Location Complex Case Management Care provider Sly Mendoza Patient status -- Program Active Case Management Population Complex Case Management Department -- Primary diagnoses for monitoring Vital Sign Trending Codi Painter: Kit Base Kit Assign kit Peripheral kit Assign kit Personal Smartphone or Tablet Patient Sun Discharge documented in this encounter Plan of Treatment Upcoming Encounters Date Type Department Care Team (Late st Contact Info) Description 07/07/2024 2:00 PM EST Office Visit [facility] [phone] Ly Mead MD [address] [facility] [address] 07/14/2024 8:15 AM EST Imaging Radiology [address] [place] [address] 07/14/2024 9:00 AM EST Cardiac Studies Cardiac Studies, [address] [place] [address] 07/14/2024 10:00 AM EST Imaging Radiology [address] [address] 09/05/2024 4:00 PM EST Office Visit [facility] [address] [facility] [phone] Luzma Yu MD 226 [facility] [place] [address] 05/02/2025 9:00 AM EDT [facility] Visit [facility] [address] [facility] [address] Roz Zarate PA-C [address] [facility] [phone] Health Maintenance Due Date Last Done Comments [...] D LEVEL ONCE IN A LIFETIME-USE SMARTSET# [id number] Completed 11/03/2022, 05/09/2022 Diabetic Eye Exam Discontinued [...] as of this encounter Visit Diagnoses Diagnosis Vital capacity reduced- Primary Nonspecific abnormal results of pulmonary system function study documented in this encounter Care Teams Crab Butcher Relationship Specialty Start Date End Date Luzma Yu MD PCP - General Family Medicine 04/05/21 documented as of this encounter
--- OUTSIDE RECORDS SUMMARY | 2024-07-26 22:19 | External Medical Summary | Summary of Care ---
Author Name Unknown Organization [facility] Address [address] [facility] [address] Phone [phone] Care Team Providers Care Freezer Worker Name Role Phone Luzma Yu MD Primary Care Provid er Reason for Visit * Reason Onset Date Comments Fax 07/01/2024 [facility] Encounter Details Date Type Department Care Team (Late st Contact Info) Description 07/01/2024 Telephone [facility] [phone] Luzma Yu MD 226 [place] [address] Fax ([facility]) Allergies Active Allergy Reactions Criticality Noted Date [...] Job Start Date Job End Date [employer] Not on file Not on file Not on file documented as of this encounter Miscellaneous Notes * Telephone Encounter - Diana William LPN - 07/01/2024 3:17 PM EST Received Fax for BFPROVIDERS: Dr. Luzma Yu ORDER received from [facility] and FAXED documented in this encounter Plan of Treatment Upcoming Encounters Date Type Department Care Team (Late st Contact Info) Description 07/07/2024 2:00 PM EST Office Visit [facility] [place] [address] [phone] Ly Mead MD [address] [place] [address] 07/14/2024 8:15 AM EST Imaging Radiology [address] [place] [address] 07/14/2024 9:00 AM EST Cardiac Studies Cardiac Studies, [address] [address] 07/14/2024 10:00 AM EST Imaging Radiology [address] [address] 09/05/2024 4:00 PM EST [facility] [address] [facility] [place] [phone] Luzma Yu MD [address] [place] [address] 05/02/2025 9:00 AM EDT Home Visit Care at Home [address] [place] [address] Roz Zarate PA-C [address] [place], [place] [phone] Health Maintenance Due Date Last Done Comments [...] D LEVEL ONCE IN A LIFETIME-USE SMARTSET# [id number] Completed 11/03/2022, 05/09/2022 Diabetic Eye Exam Discontinued [...] filedocumented as of this encounter Care Teams Freezer Worker Relationship Specialty Start Date End Date Luzma Yu MD PCP - General Family Medicine 04/05/21 documented as of this encounter
[2024-07-26] MEDS ORDERED: POLYETHYLENE (MIRALAX) 17 GM PACK PO PRN (23:24)
[2024-07-26] MEDS ORDERED: ACETAMINOPHEN 325 MG TAB PO PRN (23:24)
[2024-07-26] MEDS ORDERED: ONDANSETRON INJ 2 MG/ML 2 ML VIAL IV PRN (23:24)
[2024-07-26] MEDS: cefTRIAXone SODIUM 1,000 MG/50 ML BAG IV SCH (23:47)
[2024-07-27] MEDS: VALSARTAN/SACUBITRIL 51/49 MG TAB PO SCH (00:29)
[2024-07-27] MEDS: ATORVASTATIN 40 MG TAB PO SCH (00:29)
[2024-07-27 06:30] LABS: Hematocrit (blood only) 32.9 % (37.0-47.0); Hemoglobin 10.9 g/dl (12.0-16.0); Mean Corpuscular Hemoglobin 27.7 pg (25.0-34.0); Mean Corpuscular Hgb Conc 33.1 g/dL (32.0-36.0); Mean Corpuscular Volume 83.5 fL (80.0-100.0); Mean Platelet Volume 10.9 fL (9.4-12.4); Platelet Count 141 K/uL (130-400); RDW Coefficient of Variation 14.2 % (11.5-14.5); RDW Standard Deviation 43.1 fL (36.4-46.3); Red Blood Count 3.94 M/uL (4.20-5.40); White Blood Count 6.56 K/ul (4.8-10.8)
[2024-07-27] MEDS: LEVOTHYROXINE SODIUM 50 MCG TABLET PO SCH (06:31)
[2024-07-27 06:50] LABS: BUN Creatinine Ratio 22.7 (10-20); Calcium 9.5 mg/dl (8.6-10.3); Creatinine Clr Calc Pharmacy 46.4 ml/min; Magnesium 1.6 mg/dl (1.7-2.4); Potassium 3.6 mmol/L (3.5-5.1)
[2024-07-27 07:14] LABS: Estimated Average Glucose 137 mg/dl; Hemoglobin A1C 6.4 % (4.5-5.6)
[2024-07-27] MEDS: ISOSORBIDE MONO EXTENDED REL 60 MG TABCR PO SCH (08:46)
[2024-07-27] MEDS: levETIRAcetam 500 MG TAB PO SCH (08:46)
[2024-07-27] MEDS: THIAMINE HCL 100 MG TAB PO SCH (08:46)
[2024-07-27] MEDS: MULTIVITAMIN TAB PO SCH (08:46)
[2024-07-27] MEDS: OXYBUTYNIN CHLORIDE XL 5 MG TABCR PO SCH (08:46)
[2024-07-27] MEDS: MAGNESIUM OXIDE 400 MG TAB PO SCH (08:47)
[2024-07-27] MEDS: carvediloL 12.5 MG TAB PO SCH (08:47)
[2024-07-27] MEDS: ASPIRIN 81 MG ECTAB PO SCH (08:47)
--- NOTE | 2024-07-27 10:05 | Hospitalist Progress Note ---
Date of Service July 27, 2024 Assessment & Plan (1) Seizure-like activity: (2) Syncope: (3) Pacemaker: (4) Interstitial lung disease: (5) Chronic systolic heart failure: (6) LBBB (left bundle branch block): (7) Ischemic cardiomyopathy: Plan This is a 69-year-old female with PMH of history of complete heart block status post permanent pacemaker, biventricular ICD in situ, chronic systolic heart failure (EF 45% on Jul 30 echo, improved from 30-35% in 03/29), ILD, hype rtension, ischemic cardiomyopathy, stress urinary incontinence, esophageal dysphagia, mild dementia, mood disorder, history of alcohol dependence, ambulatory dysfunction and other medical problems listed below who presents from home after witnessed seizure-like activity and syncopal episode. Seizure-like activity Syncopal episode ? history of seizure in setting of etoh abuse, no record of neuro notes in Epic Given 1gm IV Keppra in ED Continue Keppra 500mg PO BID Seizure precautions Neurology consulted, appreciate recs -EEG -MRI brain w/wo contrast (pt has pacemaker) -continue with keppra 500mg BID AWSS at risk protocol with Ativan Continue to monitor Acute UTI UA suggestive of infection urine culture currently growing E. faecalis Empiric rocephin switched to linezolid, pt with penicillin allergy precluding use of ampicllin Adjust abx based on culture sensitivities CAD Chronic Systolic CHF hx of CHB s/p PPM BIV ICD present HTN/HLD Follows [facility] cardiology Continue Entresto, asa, imdur, coreg, statin Hypothyroidism Continue levothyroxine DM II A1c 6.2 in 03/29, diet controlled Repeat tomorrow Metformin recently dc'd due to diarrhea Hx of alcohol abuse Mild dementia Mood stable, remote hx of etoh abuse Anemia of chronic disease Hgb stable DVT Ppx: SQ heparin Code status: FULL PCP: Gigi Dispo: PT/OT for recs once medically stable Admission and Anticipated Discharge Date Admission Date: July 26, 2024 Subjective patient was seen sitting up in bed Alert and oriented x 2 Asking about going home Does note that she drinks whiskey daily Review of Systems Review of Systems: All systems reviewed & are unremarkable except as noted in Subjective Physical Exam Physical Exam: General: Alert, orientedx2. No acute distress Psych: Appropriate mood and affect HEENT: NC/AT CV: RRR Resp: Breath sounds clear bilaterally, no increased effort of breathing Abdomen: Soft, nontender Extremities: No edema in lower extremities bilaterally. Results & Data Results & Data Vital Signs (Past 12 Hours) Vital Signs Temp Pulse Pulse Resp BP BP Pulse Ox 07/27/24 09:06 63 07/27/24 08:19 36.6 C 61 20 131/73 97 07/27/24 03:01 36.3 C L 62 18 124/69 96 07/27/24 00:00 55 L 18 148/68 H 98 07/27/24 00:00 07/26/24 23:01 56 L 07/26/24 22:55 36.4 C L 53 L 18 150/73 H 98 07/26/24 22:19 36.6 C 55 L 14 112/65 97 O2 Del Method 07/27/24 09:06 07/27/24 08:19 Room Air 07/27/24 03:01 Room Air 07/27/24 00:00 Room Air 07/27/24 00:00 Room Air 07/26/24 23:01 07/26/24 22:55 Room Air 07/26/24 22:19 Room Air (2) Syncope Syncope type: unspecified Qualified Code(s): R55 - Syncope and collapse
--- NOTE | 2024-07-27 13:14 | Neurology Consultation ---
Date of Consultation July 27, 2024 Assessment & Plan (1) Seizure-like activity: Continue Keppra 500mg PO BID Recommend obtain EEG Provide seizure precautions Utilize benzodiazepines emergently for any breakthrough clinical seizure like activity Agree with continued antimicrobial therapy Continue to monitor for s/s of infection MRI brain with and without contrast Echocardiogram as part of complete workup Continue frequent neurological assessments Obtain stat CT brain without contrast for any acute neurological decline Monitor orthostatic vital signs Continue to monitor/control blood pressure & blood glucose Continue to monitor telemetry closely Continue to monitor renal and hepatic function, keep euvolemic Agree with continued vitamin supplementation Ok from neurology perspective for VTE prophylaxis PT/OT/SLT to eval and treat Telehealth Consultation Telehealth Information Telehealth Information: I performed this visit using a real-time telehealth connection between my location and the patients location (). After connecting through interactive tele-video, patient was identified by name and date of and/or wristband check.Patient (or authorized healthcare contracts representative) was informed that this was a telemedicine visit and it was being conducted confidentially over secure lines. My office door was closed and no one else was present in the room with me.Patient (or authorized healthcare contracts representative) provided consent to proceed with the visit, expressed an understanding of privacy and security of the telemedicine visit, and gave permission to have a hospital contracts representative in the room in order to assist with the visit and to conduct portions of the visit, as needed. I informed the patient (or authorized healthcare contracts representative) that I reviewed their record and presented the opportunity for them to ask any questions regarding the visit today. The patient agreed to participate. History of Present Illness Reason for Consultation: Seizure/Syncope Requesting Physician: Dr. Yates Attending Physician: Gini Yates MD History of Present Illness 69yo female with reported hx of seizure which describes happening during summer heat over the last couple years. He states she has had seizures in the heat and found to have low magnesium during those episodes. He reports yesterday they were home with home health therapy visiting and they noticed her hair was knotted so they began to brush it when her reports they sat her down in front of the furnace and she felt a ernesto of warm air coming over her which he believes caused the seizure. She was reported to have had tonic clonic clinical seizure like activity witnessed by and at home nurse. There was also reported vomiting episode following this event. No report of loss of bowel or bladder. No report of tongue biting. She has undergone CT brain without contrast revealing no overt evidence of acute intracranial abnormality. She denies visual auditory olfactory gustatory or gastrointestinal sensation leading up to the event. She has been given Keppra upron arrival to ER and has continued 500mg PO BID. reports she has not been drinking very much ETOH over the last several months. She has been found to have UTI and has been given antimicrobial tx. denies any recent changes in mentation. No reported current SI/HI or history of SI/HI. I have performed televideo consultation. She is awake and able to answer most questions appropriately, name objects on televideo monitor, perform simple commands consistently and without deficit. Neurological exam is non lateralizing/nonfocal in terms of motor strength and coordination. Allergies Allergy/AdvReac Type Severity Reaction Status Date / Time latex Allergy Intermediate HIVES Verified 06/13/24 15:15 adhesive Allergy Mild SKIN Verified 06/13/24 15:15 IRRITATION penicillin V Allergy Unknown CAN'T Verified 06/13/24 15:15 REMEMBER olanzapine [From Zyprexa] AdvReac Intermediate lethargy Verified 06/13/24 15:15 aspirin AdvReac Mild STOMACH Verified 06/13/24 15:15 UPSET Home Medications Medication Instructions Recorded Confirmed Type nitroglycerin 0.4 mg sublingual 0.4 mg sublingual DIRECTED PRN 06/16/18 07/26/24 History tablet (Nitrostat) Chest Pain atorvastatin 80 mg tablet 80 mg PO HS 03/12/21 07/26/24 History acetaminophen 500 mg tablet 1,000 mg PO AMHS 02/15/23 07/26/24 History (Tylenol Extra Strength) aspirin 81 mg tablet,delayed 81 mg PO QAM 04/28/23 07/26/24 History release magnesium oxide 400 mg PO QAM 04/28/23 07/26/24 History alendronate 70 mg tablet 70 mg PO .QWEEKLY 03/06/24 07/26/24 History isosorbide mononitrate 120 mg 120 mg PO QAM 03/06/24 07/26/24 History tablet,extended release 24 hr levothyroxine 50 mcg capsule 50 mcg PO DAILY 03/28/24 07/26/24 History solifenacin 10 mg tablet 10 mg PO DAILY 05/24/24 07/26/24 History multivitamin with folic acid 400 1 tab PO QAM #30 tabs 05/27/24 07/26/24 Rx mcg tablet (Daily-Nadir (with folic acid)) thiamine HCl (vitamin B1) 100 mg 100 mg PO QAM #30 tabs 05/27/24 07/26/24 Rx tablet carvedilol 12.5 mg tablet 12.5 mg PO BIDM #180 tabs 05/31/24 07/26/24 Rx sacubitril 49 mg-valsartan 51 mg 1 tab PO BID #90 tabs 05/31/24 07/26/24 Rx tablet (Entresto) Patient History Medical History Chronic systolic heart failure Elevated troponin S/P right coronary artery (RCA) stent placement (2015) History of placement of stent in LAD coronary artery (2008) History of placement of stent in LAD coronary artery (2019) Hypomagnesemia Acute hypokalemia Non-ST elevation MT (NSTEMI) Pneumonia Acid reflux disease with ulcer Alcohol abuse, unspecified Anxiety state, unspecified Anxiety disorder Atrial fibrillation Coronary artery disease Cardiac arrest Cardiomyopathy Congestive heart failure, unspecified Congestive cardiomyopathy Cor athrscl-uns vessel Depressive disorder, not elsewhere classified Dysphagia, oropharyngeal phase Fecal incontinence Goiter Celia's thyroiditis Other and unspecified hyperlipidemia Ocular hypertension, unspecified eye Lumbago Lumbar compression fracture Old myocardial infarct Postmenopausal atrophic vaginitis Subclinical hypothyroidism Type 2 diabetes mellitus Unknown whether patient has any health problems Urinary tract infection FREQUENT Cancer SKIN CANCER Hypertension Anxiety GERD (gastroesophageal reflux disease) HLD (hyperlipidemia) CAD (coronary artery disease) Surgical History History of appendectomy History of cardiac cath 1 STENT (2015 @ [facility]) History of esophagogastroduodenoscopy (EGD) History of colonoscopy History of tonsillectomy S/P placement of cardiac pacemaker ~15-20 YEARS AGO[address] FOLLOWS WITH [address] RUBI AND LAST CHECKED 4 MONTHS AGO History of cholecystectomy Family History Mother Family history of diabetes mellitus Blind Hearing loss Hypertension Allergies Asthma Sister Family history of diabetes mellitus Coronary heart disease Father No problems noted. Denies family history of No family history of adverse response to anesthesia No family history of bleeding disorder Heart disease Cancer Stroke Social History Smoking Status: Never smoker Tobacco Type: Cigarettes Second Hand Exposure: No; Do You Dip or Chew Tobacco: No; Hx Alcohol Use: Yes Alcohol type: beer and hard liquor Alcohol Intake Frequency: 2-3 x/Week Hx Substance Use: No Preferred Language: Grenadian Communication Ability: Effective Mechanical Integrity Engineer Required: No Beliefs That Will Affect Care: None marital status: Current Living Situation: Spouse How many Children do You have: 1 Feels Safe at Home: Yes Safety Concerns: Feels Safe At This Time Assistive Devices: Walker Physical Exam Neurological Examination: Mental Status: Awake and alert. Fluency naming repetition appear grossly intact. Affect remains appropriate. CN testing: I: Deferred II:Reports no changes in visual acuity III/IV/: No evidence of gaze preference, hippus, nystagmus or roving eye movements V: Facial sensation reportedly grossly intact to light touch bilaterally VII: Facial movements appear without evidence of asymmetry VIII: Hearing appears grossly intact to loud voice bilaterally IX/X: Palate is difficult to accurately visualize XI: Shoulder shrug appears symmetric/ grossly intact bilaterally XII: Tongue protrudes midline without evidence of biting Motor exam: Strength appears grossly intact/symmetric in all extremities Sensory: Sensation is reportedly grossly intact throughout Coordination: Deferred Reflexes: Deferred Gait: Deferred Results & Data Vital Signs (Past 12 Hours) Vital Signs Temp Pulse Pulse Resp BP Pulse Ox O2 Del Method 07/27/24 10:52 36.5 C 65 18 133/87 97 Room Air 07/27/24 09:06 63 07/27/24 08:19 36.6 C 61 20 131/73 97 Room Air 07/27/24 03:01 36.3 C L 62 18 124/69 96 Room Air Laboratory Results Abnormal lab results 07/26/24 07/26/24 07/27/24 Range/Units 15:17 19:12 05:31 WBC 4.74 L (4.8-10.8) K/ul RBC 3.82 L 3.94 L (4.20-5.40) M/uL Hgb 10.7 L 10.9 L (12.0-16.0) g/dl Hct 32.9 L 32.9 L (37.0-47.0) % Lymph # (Auto) 1.15 L (1.20-3.40) K/uL BUN/Creatinine Ratio 22.7 H (10-20) Glucose 151 H 134 H (70-99(Fasting)) mg/dl POC Glucose (70-99) mg/dl Hemoglobin A1c 6.4 H (4.5-5.6) % Magnesium 1.6 L (1.7-2.4) mg/dl B-Natriuretic Peptide 197 H (0-100) pg/ml Ur Leukocyte Esterase 1+ H (Negative) Urine WBC (Auto) 6-10 H (0-5) /hpf Urine Bacteria (Auto) 3+ H (None Seen) 07/27/24 07/27/24 Range/Units 07:44 12:01 WBC (4.8-10.8) K/ul RBC (4.20-5.40) M/uL Hgb (12.0-16.0) g/dl Hct (37.0-47.0) % Lymph # (Auto) (1.20-3.40) K/uL BUN/Creatinine Ratio (10-20) Glucose (70-99(Fasting)) mg/dl POC Glucose 140 H 147 H (70-99) mg/dl Hemoglobin A1c (4.5-5.6) % Magnesium (1.7-2.4) mg/dl B-Natriuretic Peptide (0-100) pg/ml Ur Leukocyte Esterase (Negative) Urine WBC (Auto) (0-5) /hpf Urine Bacteria (Auto) (None Seen) Diagnostic Findings Head CT 07/26/24 15:31 INDICATION: Syncope. COMPARISON: CT from 04/14/2024. TECHNIQUE: Axial CT images of the head were obtained without IV contrast. Coronal and sagittal reformations were reviewed. FINDINGS: Pizano-white differentiation is relatively preserved. No mass, mass effect or midline shift. Chronic ischemic white matter changes. Mild cortical atrophy. Basal ganglia calcifications. No evidence of acute large territorial infarction or acute intracranial hemorrhage. Ventricles appear similar in size. Basal cisterns are patent. No depressed calvarial fracture. IMPRESSION: No acute intracranial process. Electronically signed by Eliazar Lorenz 07-26-2024 5:04 PM Chest X-Ray 07/26/24 16:08 INDICATION: Chest pain. TECHNIQUE: Frontal radiograph of the chest. COMPARISON: Radiograph from 06/30/2024. FINDINGS: Mild cardiomegaly. Chronic appearing interstitial lung markings again noted. Difficult to exclude additional fluid overload or pneumonia. No pleural effusion or pneumothorax. No acute fracture. Left-sided pacemaker. IMPRESSION: Chronic appearing interstitial lung markings again noted. Difficult to exclude additional fluid overload or pneumonia. Electronically signed by Eliazar Lorenz 07-26-2024 4:35 PM Medications Administered Home Medications Medication Instructions Recorded Confirmed Last Taken nitroglycerin 0.4 mg sublingual 0.4 mg sublingual DIRECTED PRN 06/16/18 07/26/24 Unknown tablet (Nitrostat) Chest Pain atorvastatin 80 mg tablet 80 mg PO HS 03/12/21 07/26/24 03/05/24 acetaminophen 500 mg tablet 1,000 mg PO AMHS 02/15/23 07/26/24 03/06/24 08:00 (Tylenol Extra Strength) aspirin 81 mg tablet,delayed 81 mg PO QAM 04/28/23 07/26/24 03/06/24 release magnesium oxide 400 mg PO QAM 04/28/23 07/26/24 03/06/24 alendronate 70 mg tablet 70 mg PO .QWEEKLY 03/06/24 07/26/24 Unknown isosorbide mononitrate 120 mg 120 mg PO QAM 03/06/24 07/26/24 Unknown tablet,extended release 24 hr levothyroxine 50 mcg capsule 50 mcg PO DAILY 03/28/24 07/26/24 Unknown solifenacin 10 mg tablet 10 mg PO DAILY 05/24/24 07/26/24 Unknown multivitamin with folic acid 400 1 tab PO QAM #30 tabs 05/27/24 07/26/24 Unknown mcg tablet (Daily-Nadir (with folic acid)) thiamine HCl (vitamin B1) 100 mg 100 mg PO QAM #30 tabs 05/27/24 07/26/24 Unknown tablet carvedilol 12.5 mg tablet 12.5 mg PO BIDM #180 tabs 05/31/24 07/26/24 Unknown sacubitril 49 mg-valsartan 51 mg 1 tab PO BID #90 tabs 05/31/24 07/26/24 Unknown tablet (Entresto) Active Medications Generic Name Dose Route Start Last Admin Trade Name Freq PRN Reason Stop Dose Admin Aspirin 81 mg 07/27/24 09:00 07/27/24 08:47 Aspirin 81 Mg Ectab PO 08/26/24 08:59 81 mg QAM ARTIE Administration Atorvastatin Calcium 80 mg 07/26/24 23:24 07/27/24 00:29 Atorvastatin 40 Mg Tab PO 08/25/24 23:23 80 mg HS ARTIE Administration Carvedilol 12.5 mg 07/27/24 08:00 07/27/24 08:47 Carvedilol 12.5 Mg Tab PO 08/26/24 07:59 12.5 mg BIDM ARTIE Administration Ceftriaxone Sodium 1,000 mg in 50 mls @ 100 mls/hr 07/26/24 21:30 07/27/24 00:17 Rocephin IV 07/31/24 21:29 Infused Q24H ARTIE Infusion Isosorbide Mononitrate 120 mg 07/27/24 09:00 07/27/24 08:46 Isosorbide [place] Extended Rel 60 Mg Tabcr PO 08/26/24 08:59 120 mg QAM ARTIE Administration Levetiracetam 500 mg 07/27/24 09:00 07/27/24 08:46 Levetiracetam 500 Mg Tab PO 08/26/24 08:59 500 mg BID ARTIE Administration Levothyroxine Sodium 50 mcg 07/27/24 06:30 07/27/24 06:31 Levothyroxine Sodium 50 Mcg Tablet PO 08/26/24 06:29 50 mcg DAILYBB ARTIE Administration Magnesium Oxide 400 mg 07/27/24 09:00 07/27/24 08:47 Magnesium Oxide 400 Mg Tab PO 08/26/24 08:59 400 mg QAM ARTIE Administration Multivitamins 1 tab 07/27/24 09:00 07/27/24 08:46 Multivitamin Tab PO 08/26/24 08:59 1 tab QAM ARTIE Administration Oxybutynin Chloride 10 mg 07/27/24 09:00 07/27/24 08:46 Oxybutynin Chloride Xl 5 Mg Tabcr PO 08/26/24 08:59 10 mg DAILY ARTIE Administration Sacubitril/Valsartan 1 tab 07/26/24 23:24 07/27/24 08:47 Valsartan/Sacubitril 51/49 Mg Tab PO 08/25/24 23:23 1 tab BID ARTIE Administration Thiamine HCl 100 mg 07/27/24 09:00 07/27/24 08:46 Thiamine Hcl 100 Mg Tab PO 08/26/24 08:59 100 mg QAM ARTIE Administration
[2024-07-27] MEDS ORDERED: LORazepam 2 MG/1 ML VIAL IV PRN (18:50)
[2024-07-27] MEDS: LINEZOLID 600 MG/300 ML BAG IV SCH (20:05)
[2024-07-28 06:37] LABS: Basophils # (auto) 0.04 K/uL (0.00-0.20); Basophils % (auto) 0.8 %; Eosinophils # (auto) 0.22 K/uL (0.00-0.50); Eosinophils % (auto) 4.2 %; Hematocrit (blood only) 30.8 % (37.0-47.0); Hemoglobin 10.3 g/dl (12.0-16.0); Immature Granulocytes # (auto) 0.01 K/uL (0.01-0.20); Immature Granulocytes % (auto) 0.2 %; Lymphocytes # (auto) 1.19 K/uL (1.20-3.40); Mean Corpuscular Hemoglobin 28.5 pg (25.0-34.0); Mean Corpuscular Hgb Conc 33.4 g/dL (32.0-36.0); Mean Corpuscular Volume 85.1 fL (80.0-100.0); Mean Platelet Volume 11.2 fL (9.4-12.4); Monocytes # (auto) 0.37 K/uL (0.11-0.59); Monocytes % (auto) 7.1 %; Neutrophils # (auto) 3.35 K/uL (1.40-6.50); Neutrophils % (auto) 64.7 %; Platelet Count 129 K/uL (130-400); RDW Coefficient of Variation 13.9 % (11.5-14.5); RDW Standard Deviation 43.2 fL (36.4-46.3); Red Blood Count 3.62 M/uL (4.20-5.40); White Blood Count 5.18 K/ul (4.8-10.8)
[2024-07-28 06:49] LABS: Albumin Globulin Ratio 1.7 (0.9-2); Albumin Level 3.8 gm/dl (3.4-5.0); BUN Creatinine Ratio 22.2 (10-20); Bilirubin,Total 0.8 mg/dl (0.2-1.0); Calcium 9.2 mg/dl (8.6-10.3); Creatinine Clr Calc Pharmacy 45.3 ml/min; Globulin 2.3 gm/dl (2.5-4.0); Magnesium 1.6 mg/dl (1.7-2.4); Potassium 3.9 mmol/L (3.5-5.1); Total Protein 6.1 gm/dl (6.0-8.3)
[2024-07-28] MEDS: MAGNESIUM SULFATE / D5W 1 GM/100 ML BAG IV SCH (10:45)
--- NOTE | 2024-07-28 13:28 | Hospitalist Progress Note ---
Date of Service July 28, 2024 Assessment & Plan (1) Seizure-like activity: (2) Syncope: (3) Pacemaker: (4) Interstitial lung disease: (5) Chronic systolic heart failure: (6) LBBB (left bundle branch block): (7) Ischemic cardiomyopathy: Plan This is a 69-year-old female with PMH of history of complete heart block status post permanent pacemaker, biventricular ICD in situ, chronic systolic heart failure (EF 45% on Jul 30 echo, improved from 30-35% in 03/29), ILD, hype rtension, ischemic cardiomyopathy, stress urinary incontinence, esophageal dysphagia, mild dementia, mood disorder, history of alcohol dependence, ambulatory dysfunction and other medical problems listed below who presents from home after witnessed seizure-like activity and syncopal episode. Seizure-like activity Syncopal episode ? history of seizure in setting of etoh abuse, no record of neuro notes in Epic Given 1gm IV Keppra in ED Continue Keppra 500mg PO BID Seizure precautions Neurology consulted, appreciate recs -EEG completed, read pending -MRI brain w/wo contrast (pt has pacemaker) -continue with keppra 500mg BID AWSS at risk protocol with Ativan Continue to monitor Acute UTI UA suggestive of infection urine culture currently growing E. faecalis Empiric rocephin switched to linezolid, pt with penicillin allergy precluding use of ampicllin Adjust abx based on culture sensitivities CAD Chronic Systolic CHF hx of CHB s/p PPM BIV ICD present HTN/HLD Follows [facility] cardiology Continue Entresto, asa, imdur, coreg, statin Hypothyroidism Continue levothyroxine DM II A1c 6.2 in 03/29, diet controlled Repeat tomorrow Metformin recently dc'd due to diarrhea Hx of alcohol abuse Mild dementia Mood stable, remote hx of etoh abuse Anemia of chronic disease Hgb stable DVT Ppx: SQ heparin Code status: FULL PCP: Gigi Dispo: PT/OT for recs once medically stable Admission and Anticipated Discharge Date Admission Date: July 26, 2024 Subjective patient was seen sitting up in bed Alert and oriented x 2 Anxious for discharge at bedside, updated that awaiting urine cx results for discharge Agreeable to staying overnight if needed Review of Systems Review of Systems: All systems reviewed & are unremarkable except as noted in Subjective Physical Exam Physical Exam: General: Alert, orientedx2. No acute distress Psych: Appropriate mood and affect HEENT: NC/AT CV: RRR Resp: Breath sounds clear bilaterally, no increased effort of breathing Abdomen: Soft, nontender Extremities: No edema in lower extremities bilaterally. Results & Data Results & Data Vital Signs (Past 12 Hours) Vital Signs Temp Pulse Pulse Resp BP BP Pulse Ox 07/28/24 11:49 36.5 C 59 L 16 111/66 96 07/28/24 08:54 36.4 C L 65 16 118/69 96 07/28/24 07:37 58 L 07/28/24 07:30 07/28/24 03:47 36.6 C 63 17 97/55 L 95 O2 Del Method 07/28/24 11:49 Room Air 07/28/24 08:54 Room Air 07/28/24 07:37 07/28/24 07:30 Room Air 07/28/24 03:47 Room Air (2) Syncope Syncope type: unspecified Qualified Code(s): R55 - Syncope and collapse
--- NOTE | 2024-07-29 06:41 | Electroencephalogram ---
EEG Procedure Note Date of Service July 28, 2024 Start / End Times Start Time: 610 End Time: [address] Gini Falcon History A 69 year old female with syncope. EEG performed for evaluation of epileptiform activity. Home Medication List Medication Instructions Recorded Confirmed Type nitroglycerin 0.4 mg sublingual 0.4 mg sublingual DIRECTED PRN 06/16/18 07/26/24 History tablet (Nitrostat) Chest Pain atorvastatin 80 mg tablet 80 mg PO HS 03/12/21 07/26/24 History acetaminophen 500 mg tablet 1,000 mg PO AMHS 02/15/23 07/26/24 History (Tylenol Extra Strength) aspirin 81 mg tablet,delayed 81 mg PO QAM 04/28/23 07/26/24 History release magnesium oxide 400 mg PO QAM 04/28/23 07/26/24 History alendronate 70 mg tablet 70 mg PO .QWEEKLY 03/06/24 07/26/24 History isosorbide mononitrate 120 mg 120 mg PO QAM 03/06/24 07/26/24 History tablet,extended release 24 hr levothyroxine 50 mcg capsule 50 mcg PO DAILY 03/28/24 07/26/24 History solifenacin 10 mg tablet 10 mg PO DAILY 05/24/24 07/26/24 History multivitamin with folic acid 400 1 tab PO QAM #30 tabs 05/27/24 07/26/24 Rx mcg tablet (Daily-Nadir (with folic acid)) thiamine HCl (vitamin B1) 100 mg 100 mg PO QAM #30 tabs 05/27/24 07/26/24 Rx tablet carvedilol 12.5 mg tablet 12.5 mg PO BIDM #180 tabs 05/31/24 07/26/24 Rx sacubitril 49 mg-valsartan 51 mg 1 tab PO BID #90 tabs 05/31/24 07/26/24 Rx tablet (Entresto) levetiracetam 500 mg tablet 500 mg PO BID #60 tabs 07/28/24 Rx (Keppra) Inpatient Medication List Aspirin (Aspirin 81 Mg Ectab) 81 mg PO QAM ARTIE Stop: 08/26/24 08:59 Last Admin: 07/28/24 08:47 Dose: 81 mg Documented By: Admin: 07/27/24 08:47 Dose: 81 mg Documented By: Atorvastatin Calcium (Atorvastatin 40 Mg Tab) 80 mg PO HS ARTIE Stop: 08/25/24 23:23 Last Admin: 07/28/24 20:23 Dose: 80 mg Documented By: Admin: 07/27/24 20:07 Dose: 80 mg Documented By: Admin: 07/27/24 00:29 Dose: 80 mg Documented By: KATHERINE Carvedilol (Carvedilol 12.5 Mg Tab) 12.5 mg PO BIDM ARTIE Stop: 08/26/24 07:59 Last Admin: 07/28/24 17:04 Dose: 12.5 mg Documented By: Admin: 07/28/24 08:48 Dose: 12.5 mg Documented By: Admin: 07/27/24 17:44 Dose: 12.5 mg Documented By: Admin: 07/27/24 08:47 Dose: 12.5 mg Documented By: Linezolid (Zyvox) 600 mg in 300 mls @ 300 mls/hr IV Q12H ARTIE Stop: 08/06/24 18:59 Last Admin: 07/29/24 06:09 Dose: 300 mls/hr Documented By: Infusion: 07/28/24 20:23 Dose: Infused Documented By: Admin: 07/28/24 18:39 Dose: 300 mls/hr Documented By: Infusion: 07/28/24 08:10 Dose: Infused Documented By: Admin: 07/28/24 06:37 Dose: 300 mls/hr Documented By: Infusion: 07/27/24 21:05 Dose: Infused Documented By: Admin: 07/27/24 20:05 Dose: 300 mls/hr Documented By: KATHERINE Isosorbide Mononitrate (Isosorbide [place] Extended Rel 60 Mg Tabcr) 120 mg PO QAM ARTIE Stop: 08/26/24 08:59 Last Admin: 07/28/24 08:48 Dose: 120 mg Documented By: Admin: 07/27/24 08:46 Dose: 120 mg Documented By: Levetiracetam (Levetiracetam 500 Mg Tab) 500 mg PO BID ARTIE Stop: 08/26/24 08:59 Last Admin: 07/28/24 20:23 Dose: 500 mg Documented By: Admin: 07/28/24 08:46 Dose: 500 mg Documented By: Admin: 07/27/24 20:06 Dose: 500 mg Documented By: Admin: 07/27/24 08:46 Dose: 500 mg Documented By: Levothyroxine Sodium (Levothyroxine Sodium 50 Mcg Tablet) 50 mcg PO DAILYBB REPLACED BY [facility] Stop: 08/26/24 06:29 Last Admin: 07/29/24 06:08 Dose: 50 mcg Documented By: Admin: 07/28/24 06:38 Dose: 50 mcg Documented By: Admin: 07/27/24 06:31 Dose: 50 mcg Documented By: KATHERINE Magnesium Oxide (Magnesium Oxide 400 Mg Tab) 400 mg PO QAM REPLACED BY [facility] Stop: 08/26/24 08:59 Last Admin: 07/28/24 08:47 Dose: 400 mg Documented By: Admin: 07/27/24 08:47 Dose: 400 mg Documented By: Multivitamins (Multivitamin Tab) 1 tab PO QAM REPLACED BY [facility] Stop: 08/26/24 08:59 Last Admin: 07/28/24 08:48 Dose: 1 tab Documented By: Admin: 07/27/24 08:46 Dose: 1 tab Documented By: MS Oxybutynin Chloride (Oxybutynin Chloride Xl 5 Mg Tabcr) 10 mg PO DAILY REPLACED BY [facility] Stop: 08/26/24 08:59 Last Admin: 07/28/24 08:47 Dose: 10 mg Documented By: Admin: 07/27/24 08:46 Dose: 10 mg Documented By: MS Sacubitril/Valsartan (Valsartan/Sacubitril 51/49 Mg Tab) 1 tab PO BID REPLACED BY [facility] Stop: 08/25/24 23:23 Last Admin: 07/28/24 20:23 Dose: 1 tab Documented By: Admin: 07/28/24 08:47 Dose: 1 tab Documented By: Admin: 07/27/24 20:08 Dose: 1 tab Documented By: Admin: 07/27/24 08:47 Dose: 1 tab Documented By: Admin: 07/27/24 00:29 Dose: 1 tab Documented By: KATHERINE Thiamine HCl (Thiamine Hcl 100 Mg Tab) 100 mg PO QAM REPLACED BY [facility] Stop: 08/26/24 08:59 Last Admin: 07/28/24 08:49 Dose: 100 mg Documented By: Admin: 07/27/24 08:46 Dose: 100 mg Documented By: Discontinued Medications Furosemide (Furosemide 40 Mg/4 Ml Vial) 40 mg IV ONE ONE Stop: 07/26/24 16:47 Last Admin: 07/26/24 17:10 Dose: 40 mg Documented By: KOMAL Magnesium Sulfate/Dextrose (Magnesium Sulfate / D5w) 1 gm in 100 mls @ 50 mls/hr IV ONE ONE Stop: 07/26/24 19:30 Last Infusion: 07/26/24 20:25 Dose: Infused Documented By: Admin: 07/26/24 17:45 Dose: 50 mls/hr Documented By: YUN Potassium Chloride (K Alessandro / Wtr) 10 meq in 100 mls @ 100 mls/hr IV Q1H ARTIE Stop: 07/26/24 19:44 Last Infusion: 07/26/24 20:25 Dose: Infused Documented By: Admin: 07/26/24 19:15 Dose: 100 mls/hr Documented By: Infusion: 07/26/24 19:04 Dose: Infused Documented By: Admin: 07/26/24 17:45 Dose: 100 mls/hr Documented By: YUN Ceftriaxone Sodium (Rocephin) 1,000 mg in 50 mls @ 100 mls/hr IV Q24H ARTIE Stop: 07/31/24 21:29 Last Infusion: 07/27/24 00:17 Dose: Infused Documented By: Admin: 07/26/24 23:47 Dose: 100 mls/hr Documented By: KATHERINE Magnesium Sulfate/Dextrose (Magnesium Sulfate / D5w) 1 gm in 100 mls @ 50 mls/hr IV Q2H ARTIE Stop: 07/28/24 13:44 Last Infusion: 07/28/24 14:39 Dose: Infused Documented By: Admin: 07/28/24 12:40 Dose: 50 mls/hr Documented By: Infusion: 07/28/24 12:40 Dose: Infused Documented By: Admin: 07/28/24 10:45 Dose: 50 mls/hr Documented By: Levetiracetam (Levetiracetam 500 Mg/5 Ml Vial) 1,000 mg IV NOW STA Stop: 07/26/24 15:31 Last Admin: 07/26/24 15:40 Dose: 1,000 mg Documented By: [facility] [place] This is a 21 electrode EEG with a single channel dedicated to limited EKG. The electrodes were placed in accordance with the International 10-20 system. REPORT: At the onset of the EEG the patient is awake. The background is symmetric w normal anterior to posterior gradient. The posterior dominant rhythm is 9 Hz. There is intermittent generalized theta/delta slowing during drowsiness. No stage II sleep transients are seen. Photic dose not induce any abnormalities. Interpretation IMPRESSION: This is an abnormal awake and drowsy routine EEG due to mild intermittent background slowing suggestive of a mild non specific encephalopathy. No epileptiform activity is seen.
[2024-07-29 08:01] VITALS: O2SAT 97
[2024-07-29] MEDS: MAGNESIUM SULFATE / D5W 1 GM/100 ML BAG IV ONE (10:05)
[2024-07-29 10:16] LABS: Basophils # (auto) 0.02 K/uL (0.00-0.20); Basophils % (auto) 0.4 %; Eosinophils # (auto) 0.21 K/uL (0.00-0.50); Eosinophils % (auto) 4.3 %; Hematocrit (blood only) 33.4 % (37.0-47.0); Hemoglobin 11.1 g/dl (12.0-16.0); Immature Granulocytes # (auto) 0.03 K/uL (0.01-0.20); Immature Granulocytes % (auto) 0.6 %; Lymphocytes # (auto) 0.83 K/uL (1.20-3.40); Lymphocytes % (auto) 16.8 %; Mean Corpuscular Hgb Conc 33.2 g/dL (32.0-36.0); Mean Corpuscular Volume 84.1 fL (80.0-100.0); Mean Platelet Volume 10.9 fL (9.4-12.4); Monocytes # (auto) 0.11 K/uL (0.11-0.59); Monocytes % (auto) 2.2 %; Neutrophils # (auto) 3.74 K/uL (1.40-6.50); Neutrophils % (auto) 75.7 %; Platelet Count 135 K/uL (130-400); RDW Coefficient of Variation 13.8 % (11.5-14.5); RDW Standard Deviation 42.2 fL (36.4-46.3); Red Blood Count 3.97 M/uL (4.20-5.40); White Blood Count 4.94 K/ul (4.8-10.8)
[2024-07-29 10:37] LABS: Albumin Globulin Ratio 1.5 (0.9-2); Albumin Level 4.1 gm/dl (3.4-5.0); BUN Creatinine Ratio 15.7 (10-20); Bilirubin,Total 0.8 mg/dl (0.2-1.0); Calcium 9.7 mg/dl (8.6-10.3); Globulin 2.7 gm/dl (2.5-4.0); Magnesium 1.9 mg/dl (1.7-2.4); Phosphorus 3.9 mg/dl (2.5-4.9); Potassium 3.8 mmol/L (3.5-5.1); Total Protein 6.8 gm/dl (6.0-8.3)
[2024-07-29 12:12] VITALS: PULSE 96; RESP 20; TEMP 97.9
--- NOTE | 2024-07-29 12:46 | Discharge Summary ---
Discharge Summary Date of Service July 29, 2024 Principal Dx & Hospital Course #1 = Principal Diagnosis (1) Seizure-like activity: (2) Syncope: (3) Pacemaker: (4) Interstitial lung disease: (5) Chronic systolic heart failure: (6) LBBB (left bundle branch block): (7) Ischemic cardiomyopathy: Plan This is a 69-year-old female with PMH of history of complete heart block status post permanent pacemaker, biventricular ICD in situ, chronic systolic heart failure (EF 45% on Jul 30 echo, improved from 30-35% in 03/29), ILD, hypertension, ischemic cardiomyopathy, stress urinary incontinence, esophageal dysphagia, mild dementia, mood disorder, history of alcohol dependence, ambulatory dysfunction and other medical problems listed below who presents from home after witnessed seizure-like activity and syncopal episode at home. Seizure-like activity Syncopal episode Questionable history of seizure in setting of etoh abuse, no record of neuro notes in Epic Given 1gm IV Keppra in the ED on arrival was started on po Keppra 500mg PO BID Seizure precautions Head CT unremarkable Pt with pacemaker, no MRI followup as a result EKG noting paced rhythm Neurology consulted, recommended/stated the following: -obtain EEG, read by Dr Pitts as: "IMPRESSION: This is an abnormal awake and drowsy routine EEG due to mild intermittent background slowing suggestive of a mild non specific encephalopathy. No epileptiform activity is seen. " -MRI brain w/wo contrast (pt has pacemaker) -continue with keppra 500mg BID AWSS at risk protocol with Ativan, pt did not go into withdrawal On the day of discharge, pt was very anxious to go home. No further episodes of seizures and associated syncopal episodes since admission. Per her , she was back to baseline. Discharged with Keppra 300mg BID Close PCP and Neurology follow up after discharge. Acute UTI UA suggestive of infection urine culture grew Enterococcus faecalis Empiric rocephin ordered on admission was switched to linezolid, pt with penicillin allergy precluding use of ampicillin/amoxicillin Discharged on linezolid 600mg BID for an additional 5 more days Hx of alcohol abuse Mild dementia remote hx of etoh abuse, per drinking has decreased quite a bit She states she drinks whiskey daily Encourage cessation thiamine + folate PCP followup CAD Chronic Systolic CHF hx of CHB s/p PPM BIV ICD present HTN/HLD [place] [facility] [place] Continue Entresto, asa, imdur, coreg, statin Hypothyroidism Continue levothyroxine DM II A1c 6.4, diet controlled Metformin recently dc'd due to diarrhea PCP followup Anemia of chronic disease Hgb stable , 11.1 on discharge PCP follow up Notes For Next Care Provider Please ensure followup with Neurology Medication Changes From Visit Linezolid 600mg BID x 5 more days Per Neurology: Keppra 500mg BID Admission HPI Per Admitting Provider This is a 69-year-old female with PMH of history of complete heart block status post permanent pacemaker, biventricular ICD in situ, chronic systolic heart failure (EF 30-35% per 03/29 echo), ILD, hypertension, ischemic cardiomyopathy, stress urinary incontinence, esophageal dysphagia, mild dementia, mood disorder, history of alcohol dependence, ambulatory dysfunction and other medical problems listed below who presents from home after witnessed seizure episode. Was at home today with home nursing staff who was brushing her hair when event occurred. She denies any preceding CP, SOB or palpitations. Does not there is a coal burning stove in living room and felt hot prior to event. Nursing reportedly noticed tonic clonic activity and then what appeared to be a brief LOC. Did have episode of vomiting afterwards which has not recurred. No tongue biting. Unsure of urinary incontinence as she wears briefs at baseline. Seizure history per chart but is not on AEDs, ? in setting of alcohol abuse history which is remote. Patient unsure of any recent events. Lives with her who manages her meds and uses a walker to ambulate. In ED, patient was given 1gm IV Keppra for reported seizure [employer]. CT head reassuring without intracranial process. CXR with possible volume overload. Admission Exam Per Admitting Provider Per admitting provider: Currently laying in bed in [facility], she is awake, alert, answers appropriately. Speech fluent, no facial asymmetry. Lungs CTAB, heart sounds regular. Abdomen soft, nontender. Moves extremities. Discharge Exam General: Alert, orientedx2. No acute distress Psych: Appropriate mood and affect Neuro: AAOx2, CN grossly intact, strength and sensation intact HEENT: NC/AT CV: RRR Resp: Breath sounds clear bilaterally, no increased effort of breathing Abdomen: Soft, nontender Extremities: No edema in lower extremities bilaterally. Updated Medication List Medication Instructions Recorded Confirmed Type nitroglycerin 0.4 mg sublingual 0.4 mg sublingual DIRECTED PRN 06/16/18 07/26/24 History tablet (Nitrostat) Chest Pain atorvastatin 80 mg tablet 80 mg PO HS 03/12/21 07/26/24 History acetaminophen 500 mg tablet 1,000 mg PO AMHS 02/15/23 07/26/24 History (Tylenol Extra Strength) aspirin 81 mg tablet,delayed 81 mg PO QAM 04/28/23 07/26/24 History release magnesium oxide 400 mg PO QAM 04/28/23 07/26/24 History alendronate 70 mg tablet 70 mg PO .QWEEKLY 03/06/24 07/26/24 History isosorbide mononitrate 120 mg 120 mg PO QAM 03/06/24 07/26/24 History tablet,extended release 24 hr levothyroxine 50 mcg capsule 50 mcg PO DAILY 03/28/24 07/26/24 History solifenacin 10 mg tablet 10 mg PO DAILY 05/24/24 07/26/24 History multivitamin with folic acid 400 1 tab PO QAM #30 tabs 05/27/24 07/26/24 Rx mcg tablet (Daily-Nadir (with folic acid)) thiamine HCl (vitamin B1) 100 mg 100 mg PO QAM #30 tabs 05/27/24 07/26/24 Rx tablet carvedilol 12.5 mg tablet 12.5 mg PO BIDM #180 tabs 05/31/24 07/26/24 Rx sacubitril 49 mg-valsartan 51 mg 1 tab PO BID #90 tabs 05/31/24 07/26/24 Rx tablet (Entresto) levetiracetam 500 mg tablet 500 mg PO BID #60 tabs 07/28/24 Rx (Keppra) linezolid 600 mg tablet 600 mg PO BID #10 tabs 07/29/24 Rx Hospital Stay Data Consultations 07/26/24 17:30 ED Decision to Admit Stat 07/26/24 18:31 Consult Neurology Routine Diagnostic Imagining Performed 07/26/24 15:31 CT head/brain wo con Stat Head CT 07/26/24 15:31 INDICATION: Syncope. COMPARISON: CT from 04/14/2024. TECHNIQUE: Axial CT images of the head were obtained without IV contrast. Coronal and sagittal reformations were reviewed. FINDINGS: Pizano-white differentiation is relatively preserved. No mass, mass effect or midline shift. Chronic ischemic white matter changes. Mild cortical atrophy. Basal ganglia calcifications. No evidence of acute large territorial infarction or acute intracranial hemorrhage. Ventricles appear similar in size. Basal cisterns are patent. No depressed calvarial fracture. IMPRESSION: No acute intracranial process. Electronically signed by Eliazar Lorenz 07-26-2024 5:04 PM Chest X-Ray 07/26/24 16:08 INDICATION: Chest pain. TECHNIQUE: Frontal radiograph of the chest. COMPARISON: Radiograph from 06/30/2024. FINDINGS: Mild cardiomegaly. Chronic appearing interstitial lung markings again noted. Difficult to exclude additional fluid overload or pneumonia. No pleural effusion or pneumothorax. No acute fracture. Left-sided pacemaker. IMPRESSION: Chronic appearing interstitial lung markings again noted. Difficult to exclude additional fluid overload or pneumonia. Electronically signed by Eliazar Lorenz 07-26-2024 4:35 PM Pending Results Patient Have Any Pending Studies at Discharge: No Discharge Instructions Given to Patient (Per Discharging Provider) Ocdi, You presented with acute concern for a seizure. You were found to have a urinary tract infection. You were seen by the Neurologist who recommended that you start taking the medication Keppra 500mg twice a day to help with seizures. We treated you with antibiotics to help your urinary tract infection and we are discharging you home with an additional 5 more days of antibiotics. Please take it as prescribed. Please keep close follow up with your primary care provider after discharge. Please do not hesitate to come back to the emergency room if your symptoms worsen or return. It was a pleasure taking care of you while you were here. Total Time Total Time Spent Total Time Spent (In Minutes): 65
[2024-07-29 12:52] VITALS: BP 116/78
== END 2024-07-29 13:16 | disposition home health service (06) | DRG 101 ==
LOC: ED 15:08 → EDINP 18:10 → SUATTDRO 18:10 → 4W 23:18

== ENCOUNTER 2024-10-11 05:14 | Inpatient (IN) ==
--- NOTE | 2024-10-11 05:35 | Emergency Department Note ---
History of Present Illness General Chief complaint: Chest Pain Stated complaint: CHEST PAIN, HIGH BLOOD PRESSURE Time Seen by Provider: 10/11/24 05:20 History of Present Illness Maximum Pain Intensity: 9 This is a 69-year-old female presenting to the emergency department from home for evaluation of left-sided chest pain. Patient states that her symptoms began roughly 1 hour prior to arrival around 4:30 AM. Patient has a history of NSTEMI, severe CAD, and cardiac stent placement. Patient states that she was watching television tonight at onset of symptoms. She ran out of her nitroglycerin and did not have any to take for her symptoms. She checked her blood pressure at home, which was reportedly elevated in the 160s/90s. Patient has not had recent fevers or chills. She was admitted to this facility about 2 weeks ago for syncopal episode and possible cardiac arrest. Ultimately it was determined that she likely did not have cardiac arrest at that visit, and she was discharged home. She did have some medication changes to her blood pressure medication after this, and is concerned that her blood pressure may be higher than normal. She rates her current discomfort a 9/10. No nausea or vomiting. No radiation of pain. Home Medications Medication Instructions Recorded Confirmed Type nitroglycerin 0.4 mg sublingual 0.4 mg sublingual DIRECTED PRN 06/16/18 10/11/24 History tablet (Nitrostat) Chest Pain atorvastatin 80 mg tablet 80 mg PO DAILY 03/12/21 10/11/24 History acetaminophen 500 mg tablet 1,000 mg PO Q6H PRN PAIN/FEVER 02/15/23 10/11/24 History (Tylenol Extra Strength) aspirin 81 mg tablet,delayed 81 mg PO QAM 04/28/23 10/11/24 History release magnesium oxide 400 mg PO QAM 04/28/23 10/11/24 History alendronate 70 mg tablet 70 mg PO WK 03/06/24 10/11/24 History isosorbide mononitrate 120 mg 120 mg PO QAM 03/06/24 10/11/24 History tablet,extended release 24 hr levothyroxine 50 mcg capsule 50 mcg PO DAILYBB 03/28/24 10/11/24 History solifenacin 10 mg tablet 10 mg PO DAILY 05/24/24 10/11/24 History thiamine HCl (vitamin B1) 100 mg 100 mg PO QAM #30 tabs 05/27/24 10/11/24 Rx tablet sacubitril 49 mg-valsartan 51 mg 1 tab PO BID #90 tabs 05/31/24 10/11/24 Rx tablet (Entresto) levetiracetam 500 mg tablet 500 mg PO BID #60 tabs 07/28/24 10/11/24 Rx (Keppra) gabapentin 100 mg capsule 100 mg PO HS 09/23/24 10/11/24 History carvedilol 6.25 mg tablet 6.25 mg PO BID 10/11/24 10/11/24 History Allergies Allergy/AdvReac Type Severity Reaction Status Date / Time latex Allergy Intermediate HIVES Verified 09/23/24 17:09 penicillin V Allergy Intermediate Hives Verified 09/23/24 17:09 adhesive Allergy Mild SKIN Verified 09/23/24 17:09 IRRITATION metformin AdvReac Intermediate Diarrhea Verified 09/23/24 17:09 olanzapine [From Zyprexa] AdvReac Intermediate lethargy Verified 09/23/24 17:09 Past Med/Surg History Problem List (Updated 10/12/24 @ 04:20 by Wilson Deutsch PA-C) Elevated troponin (Acute) Anemia (Acute) Pacemaker (Acute) Syncope (Acute) Seizure-like activity (Acute) Acute respiratory failure with hypoxia Acute hyponatremia (Acute) Hypoxia (Acute) Pneumonia (Acute) Diarrhea (Acute) Interstitial lung disease S/P coronary artery stent placement Non-ST elevation LA (NSTEMI) (Acute) Chest pain (Acute) LBBB (left bundle branch block) Chest pain (Acute) Generalized weakness (Acute) Dyslipidemia Parainfluenza (Acute) Pneumonia (Acute) RAD (reactive airway disease) (Acute) UGIB (upper gastrointestinal bleed) SOB (shortness of breath) HBP (high blood pressure) GERD (gastroesophageal reflux disease) Osteoporosis AF (paroxysmal atrial fibrillation) Depression Diabetes mellitus, type 2 Fracture of L1 vertebra (Acute) Fall (Acute) Mixed hearing loss, bilateral Coronary artery disease Fatigue ICD (implantable cardioverter-defibrillator), biventricular, in situ Encounter for pre-operative examination Encounter for pre-operative examination Esophageal dysphagia Left knee pain (Acute) Left knee pain (Acute) Unstable angina Syncope (Acute) DVT prophylaxis Acute cystitis Ischemic cardiomyopathy Hypothyroidism PT DENIES. Medical History Chronic systolic heart failure Elevated troponin S/P right coronary artery (RCA) stent placement (2015) History of placement of stent in LAD coronary artery (2008) History of placement of stent in LAD coronary artery (2019) Hypomagnesemia Acute hypokalemia Non-ST elevation LA (NSTEMI) Pneumonia Acid reflux disease with ulcer Alcohol abuse, unspecified Anxiety state, unspecified Anxiety disorder Atrial fibrillation Coronary artery disease Cardiac arrest Cardiomyopathy Congestive heart failure, unspecified Congestive cardiomyopathy Cor athrscl-uns vessel Depressive disorder, not elsewhere classified Dysphagia, oropharyngeal phase Fecal incontinence Goiter Celia's thyroiditis Other and unspecified hyperlipidemia Ocular hypertension, unspecified eye Lumbago Lumbar compression fracture Old myocardial infarct Postmenopausal atrophic vaginitis Subclinical hypothyroidism Type 2 diabetes mellitus Unknown whether patient has any health problems Urinary tract infection FREQUENT Cancer SKIN CANCER Hypertension Anxiety GERD (gastroesophageal reflux disease) HLD (hyperlipidemia) CAD (coronary artery disease) Surgical History History of appendectomy History of cardiac cath 1 STENT (2015 @ [facility]) History of esophagogastroduodenoscopy (EGD) History of colonoscopy History of tonsillectomy S/P placement of cardiac pacemaker ~15-20 [address]ARS AGO[address] FOLLOWS WITH [address] RUBI AND LAST CHECKED 4 MONTHS AGO History of cholecystectomy Family History Mother Family history of diabetes mellitus Blind Hearing loss Hypertension Allergies Asthma Sister Family history of diabetes mellitus Coronary heart disease Father No problems noted. Denies family history of No family history of adverse response to anesthesia No family history of bleeding disorder Heart disease Cancer Stroke Social History Smoking Status: Never smoker Tobacco Type: Cigarettes Second Hand Exposure: No; Do You Dip or Chew Tobacco: No; Hx Alcohol Use: Yes Alcohol type: beer and wine Alcohol Intake Frequency: 2-3 x/Week Hx Substance Use: No Preferred Language: [place] Communication Ability: Effective Laundry Room Attendant Required: No Beliefs That Will Affect Care: None marital status: Current Living Situation: Spouse How many Children do You have: 1 Other Information That Helps Us Care for You: No Feels Safe at Home: Yes Safety Concerns: Feels Safe At This Time Assistive Devices: Glasses and Hearing Aid - Right Review of Systems A total of 10 systems reviewed and were otherwise negative Physical Exam Vital Signs Vital Signs - 24 hr 10/11/24 05:14 10/11/24 05:26 10/11/24 06:00 Temperature 37 C Temperature Source Oral Pulse Rate 69 78 Pulse Rate [Apical] Pulse Rate from SpO2 Sensor Pulse Rhythm Regular Pulse Rhythm [Apical] Pulse Strength Normal Respiratory Rate 20 Respiratory Effort / Characteristics Non-Labored Spontaneous Respiratory Depth Normal Respiratory Pattern Blood Pressure 132/80 108/64 Blood Pressure [Right Arm] Blood Pressure Mean 97 91 Blood Pressure Mean [Right Arm] Blood Pressure Position [Right Arm] Pulse Oximetry 97 Oxygen Delivery Method Room Air Sepsis Recent Fever Within 48 Hours No Sepsis New/Unexplained Change in Mental Status N/A Sepsis Action Taken by Nursing No Action Required EWS Level of Consciousness - Last Result EWS Temperature - Last Result EWS Respiratory Rate - Last Result EWS Oxygen Saturation - Last Result EWS Oxygen in Use - Last Result EWS Score EWS Clinical Risk 10/11/24 06:00 10/11/24 06:00 10/11/24 06:00 Temperature Temperature Source Pulse Rate Pulse Rate [Apical] Pulse Rate from SpO2 Sensor Pulse Rhythm Pulse Rhythm [Apical] Pulse Strength Respiratory Rate Respiratory Effort / Characteristics Respiratory Depth Respiratory Pattern Blood Pressure 108/64 108/64 108/64 Blood Pressure [Right Arm] Blood Pressure Mean 91 91 91 Blood Pressure Mean [Right Arm] Blood Pressure Position [Right Arm] Pulse Oximetry Oxygen Delivery Method Sepsis Recent Fever Within 48 Hours Sepsis New/Unexplained Change in Mental Status Sepsis Action Taken by Nursing EWS Level of Consciousness - Last Result EWS Temperature - Last Result EWS Respiratory Rate - Last Result EWS Oxygen Saturation - Last Result EWS Oxygen in Use - Last Result EWS Score EWS Clinical Risk 10/11/24 06:18 10/11/24 06:27 10/11/24 06:30 Temperature Temperature Source Pulse Rate 66 66 Pulse Rate [Apical] Pulse Rate from SpO2 Sensor 65 66 Pulse Rhythm Pulse Rhythm [Apical] Pulse Strength Respiratory Rate 19 17 Respiratory Effort / Characteristics Respiratory Depth Respiratory Pattern Blood Pressure 117/76 Blood Pressure [Right Arm] Blood Pressure Mean 96 Blood Pressure Mean [Right Arm] Blood Pressure Position [Right Arm] Pulse Oximetry 97 97 Oxygen Delivery Method Sepsis Recent Fever Within 48 Hours Sepsis New/Unexplained Change in Mental Status Sepsis Action Taken by Nursing EWS Level of Consciousness - Last Result EWS Temperature - Last Result EWS Respiratory Rate - Last Result EWS Oxygen Saturation - Last Result EWS Oxygen in Use - Last Result EWS Score EWS Clinical Risk 10/11/24 06:30 10/11/24 06:33 10/11/24 08:11 Temperature Temperature Source Pulse Rate 65 65 Pulse Rate [Apical] Pulse Rate from SpO2 Sensor 64 Pulse Rhythm Pulse Rhythm [Apical] Pulse Strength Respiratory Rate 18 18 Respiratory Effort / Characteristics Respiratory Depth Respiratory Pattern Blood Pressure 117/76 166/90 H Blood Pressure [Right Arm] Blood Pressure Mean 96 Blood Pressure Mean [Right Arm] Blood Pressure Position [Right Arm] Pulse Oximetry 96 97 Oxygen Delivery Method Room Air Sepsis Recent Fever Within 48 Hours Sepsis New/Unexplained Change in Mental Status Sepsis Action Taken by Nursing EWS Level of Consciousness - Last Result EWS Temperature - Last Result EWS Respiratory Rate - Last Result EWS Oxygen Saturation - Last Result EWS Oxygen in Use - Last Result EWS Score EWS Clinical Risk 10/11/24 08:20 10/11/24 12:09 10/11/24 12:09 Temperature 36.4 C L 37.0 C Temperature Source Oral Oral Pulse Rate Pulse Rate [Apical] 68 57 L Pulse Rate from SpO2 Sensor Pulse Rhythm Pulse Rhythm [Apical] Regular Pulse Strength Respiratory Rate 14 20 Respiratory Effort / Characteristics Non-Labored Spontaneous Respiratory Depth Normal Respiratory Pattern Regular Blood Pressure Blood Pressure [Right Arm] 156/90 H 118/61 Blood Pressure Mean Blood Pressure Mean [Right Arm] 112 80 Blood Pressure Position [Right Arm] Sitting Pulse Oximetry 99 98 Oxygen Delivery Method Room Air Room Air Sepsis Recent Fever Within 48 Hours Sepsis New/Unexplained Change in Mental Status Sepsis Action Taken by Nursing EWS Level of Consciousness - Last Result Spontaneously Alert EWS Temperature - Last Result 36.4 EWS Respiratory Rate - Last Result 14 EWS Oxygen Saturation - Last Result 99 EWS Oxygen in Use - Last Result No EWS Score 0 EWS Clinical Risk Low Risk 10/11/24 16:29 10/11/24 16:29 10/11/24 19:17 Temperature 36.8 C 36.4 C L Temperature Source Oral Oral Pulse Rate Pulse Rate [Apical] 63 63 Pulse Rate from SpO2 Sensor Pulse Rhythm Pulse Rhythm [Apical] Pulse Strength Respiratory Rate 17 16 Respiratory Effort / Characteristics Non-Labored Respiratory Depth Normal Respiratory Pattern Regular Blood Pressure Blood Pressure [Right Arm] 122/71 138/72 Blood Pressure Mean Blood Pressure Mean [Right Arm] 88 94 Blood Pressure Position [Right Arm] Semi-fowlers Pulse Oximetry 98 95 Oxygen Delivery Method Room Air Room Air Sepsis Recent Fever Within 48 Hours Sepsis New/Unexplained Change in Mental Status Sepsis Action Taken by Nursing EWS Level of Consciousness - Last Result Spontaneously Alert EWS Temperature - Last Result 37.0 EWS Respiratory Rate - Last Result 20 EWS Oxygen Saturation - Last Result 98 EWS Oxygen in Use - Last Result No EWS Score 0 EWS Clinical Risk Low Risk 10/11/24 19:19 Temperature Temperature Source Pulse Rate Pulse Rate [Apical] Pulse Rate from SpO2 Sensor Pulse Rhythm Pulse Rhythm [Apical] Pulse Strength Respiratory Rate Respiratory Effort / Characteristics Respiratory Depth Respiratory Pattern Blood Pressure Blood Pressure [Right Arm] Blood Pressure Mean Blood Pressure Mean [Right Arm] Blood Pressure Position [Right Arm] Pulse Oximetry Oxygen Delivery Method Sepsis Recent Fever Within 48 Hours Sepsis New/Unexplained Change in Mental Status Sepsis Action Taken by Nursing EWS Level of Consciousness - Last Result Spontaneously Alert EWS Temperature - Last Result 36.4 EWS Respiratory Rate - Last Result 16 EWS Oxygen Saturation - Last Result 95 EWS Oxygen in Use - Last Result No EWS Score 1 EWS Clinical Risk Low Risk VITALS: Vitals are noted on the nurse's note and reviewed by myself. Vital signs stable. GENERAL: Well-developed, well-nourished, white female, who is in no acute distress and resting comfortably. Patient is cooperative with the examination. HEAD: Normocephalic atraumatic. NECK: Supple without nuchal rigidity. No lymphadenopathy. No thyromegaly. Cervical spine is nontender. HEART: Regular rate and rhythm without murmurs gallops or rubs. LUNGS: Clear to auscultation bilaterally without wheezes, rales or rhonchi. No retractions or accessory muscle use. ABDOMEN: Positive normal bowel sounds x 4. Soft, nontender, without masses or organomegaly. No guarding or rebound tenderness. MUSCULOSKELETAL: No muscle atrophy, erythema, or edema noted. Full range of motion in all extremities. NEURO: Patient was alert and oriented to person place and time. CN II through XII grossly intact. Course Administered Medications Atorvastatin Calcium (Atorvastatin 40 Mg Tab) 80 mg PO DAILY [facility] Stop: 11/10/24 08:59 Last Admin: 10/11/24 09:16 Dose: 80 mg Documented By: BARNEY Carvedilol (Carvedilol 6.25 Mg Tab) 6.25 mg PO BID [facility] Stop: 11/10/24 08:59 Last Admin: 10/11/24 20:35 Dose: 6.25 mg Documented By: DIRECTOR OF RESEARCH Admin: 10/11/24 09:17 Dose: 6.25 mg Documented By: BARNEY Enoxaparin Sodium (Enoxaparin Inj 30 Mg/0.3 Ml Syr) 30 mg SQ QAM [facility] Stop: 11/10/24 08:59 Last Admin: 10/11/24 09:16 Dose: 30 mg Documented By: BARNEY Gabapentin (Gabapentin 100 Mg Cap) 100 mg PO HS [facility] Stop: 11/10/24 20:59 Last Admin: 10/11/24 20:35 Dose: 100 mg Documented By: DIRECTOR OF RESEARCH Insulin Aspart (Insulin Aspart Per Unit Charge) 0 units SC ACHS [facility] Stop: 11/10/24 08:29 Last Admin: 10/11/24 20:35 Dose: Not Given Documented By: Admin: 10/11/24 17:42 Dose: Not Given Documented By: Admin: 10/11/24 13:01 Dose: 2 units Documented By: BARNEY Co-signed By: MARCIE Admin: 10/11/24 09:18 Dose: Not Given Documented By: BARNEY Levetiracetam (Levetiracetam 500 Mg Tab) 500 mg PO BID [facility] Stop: 11/10/24 08:59 Last Admin: 10/11/24 20:34 Dose: 500 mg Documented By: Admin: 10/11/24 09:17 Dose: 500 mg Documented By: BARNEY Oxybutynin Chloride (Oxybutynin Chloride Xl 5 Mg Tabcr) 10 mg PO DAILY [facility] Stop: 11/10/24 08:59 Last Admin: 10/11/24 09:17 Dose: 10 mg Documented By: BARNEY Sacubitril/Valsartan (Valsartan/Sacubitril 51/49 Mg Tab) 1 tab PO BID [facility] Stop: 11/10/24 08:59 Last Admin: 10/11/24 20:34 Dose: 1 tab Documented By: Admin: 10/11/24 09:17 Dose: 1 tab Documented By: BARNEY Discontinued Medications Aspirin (Aspirin 81 Mg Chew) 324 mg PO NOW STA Stop: 10/11/24 05:31 Last Admin: 10/11/24 05:36 Dose: 324 mg Documented By: MCKAY Clopidogrel Bisulfate (Clopidogrel Bisulfate 300 Mg Tab) 300 mg PO NOW STA Stop: 10/11/24 15:34 Last Admin: 10/11/24 16:37 Dose: 300 mg Documented By: BARNEY Thiamine HCl 100 mg/ Syringe 10 mls @ 2 mls/min IV ONE ONE Stop: 10/11/24 06:24 Last Admin: 10/11/24 07:37 Dose: 2 mls/min Documented By: GORDON Nitroglycerin (Nitroglycerin 2% Ointment 30gm Tube) 1 inch EXT NOW ONE Stop: 10/11/24 05:31 Last Admin: 10/11/24 05:37 Dose: 1 inch Documented By: MCKAY Non-Formulary Medication (Isosorbide Mononitrate) 120 mg PO QAM [facility] Stop: 11/10/24 08:59 Last Admin: 10/11/24 09:18 Dose: Not Given Documented By: BARNEY Medical Decision Making Differential Diagnosis Differential diagnosis includes, but is not limited to: Myocardial infarction, dysrhythmia, pericarditis, pneumothorax, aortic aneurysm/dissection, DVT/PE, anxiety, GERD, PUD, electrolyte imbalance, thyroid disorder, pneumonia, bronchitis, pancreatitis, and others Laboratory Data 10/11/24 05:21 10/11/24 05:21 Lab Results 10/11/24 10/11/24 10/11/24 Range/Units 05:21 07:07 12:25 WBC 5.21 (4.8-10.8) K/ul RBC 4.81 (4.20-5.40) M/uL Hgb 13.5 (12.0-16.0) g/dl Hct 41.8 (37.0-47.0) % MCV 86.9 (80.0-100.0) fL MCH 28.1 (25.0-34.0) pg MCHC 32.3 (32.0-36.0) g/dL RDW Std Deviation 42.5 (36.4-46.3) fL RDW Coeff of Chucky 13.5 (11.5-14.5) % Plt Count 154 (130-400) K/uL MPV 10.8 (9.4-12.4) fL Immature Gran % (Auto) 0.6 % Neut % (Auto) 65.4 % Lymph % (Auto) 23.4 % [place] % (Auto) 5.2 % Eos % (Auto) 4.4 % Baso % (Auto) 1.0 % Neut # (Auto) 3.41 (1.40-6.50) K/uL Lymph # (Auto) 1.22 (1.20-3.40) K/uL [place] # (Auto) 0.27 (0.11-0.59) K/uL Eos # (Auto) 0.23 (0.00-0.50) K/uL Baso # (Auto) 0.05 (0.00-0.20) K/uL Immature Gran # (Auto) 0.03 (0.01-0.20) K/uL APTT 24 (21-31) Seconds PTT Ratio 0.9 Sodium 137 (136-145) mmol/L Potassium 4.0 (3.5-5.1) mmol/L Chloride 103 (98-107) mmol/L Carbon Dioxide 26 (21-32) mmol/L Anion Gap 8 (3-11) BUN 21 (6-23) mg/dl Creatinine 1.13 (0.6-1.2) mg/dl Est Cr Clr Drug Dosing 36.1 ml/min eGFR 52.01 BUN/Creatinine Ratio 18.6 (10-20) Glucose 137 H (70-99(Fasting)) mg/dl POC Glucose 118 H (70-99) mg/dl Calcium 9.6 (8.6-10.3) mg/dl Magnesium 1.8 (1.7-2.4) mg/dl Total Bilirubin 0.5 (0.2-1.0) mg/dl AST 19 (13-39) U/L ALT 19 (7-52) U/L Alkaline Phosphatase 76 (34-104) U/L Troponin I High Sens 31.9 H 39.2 H (0-14) pg/ml Total Protein 7.8 (6.0-8.3) gm/dl Albumin 4.7 (3.4-5.0) gm/dl Globulin 3.1 (2.5-4.0) gm/dl Albumin/Globulin Ratio 1.5 (0.9-2) Triglycerides 184 H (0-150) mg/dl Cholesterol 156 (0-200) mg/dl LDL Cholesterol, Calc 83 mg/dl VLDL Cholesterol, Calc 37 H (0-30) mg/dl HDL Cholesterol 36 mg/dl Cholesterol/HDL Ratio 4.3 (0-5) Lipase 35 (11-82) U/L Ethyl Alcohol mg/dL < 10.0 (<10.0) mg/dl 10/11/24 10/11/24 10/11/24 Range/Units 14:33 16:12 20:33 WBC (4.8-10.8) K/ul RBC (4.20-5.40) M/uL Hgb (12.0-16.0) g/dl Hct (37.0-47.0) % MCV (80.0-100.0) fL MCH (25.0-34.0) pg MCHC (32.0-36.0) g/dL RDW Std Deviation (36.4-46.3) fL RDW Coeff of Chucky (11.5-14.5) % Plt Count (130-400) K/uL MPV (9.4-12.4) fL Immature Gran % (Auto) % Neut % (Auto) % Lymph % (Auto) % [place] % (Auto) % Eos % (Auto) % Baso % (Auto) % Neut # (Auto) (1.40-6.50) K/uL Lymph # (Auto) (1.20-3.40) K/uL [place] # (Auto) (0.11-0.59) K/uL Eos # (Auto) (0.00-0.50) K/uL Baso # (Auto) (0.00-0.20) K/uL Immature Gran # (Auto) (0.01-0.20) K/uL APTT (21-31) Seconds PTT Ratio Sodium (136-145) mmol/L Potassium (3.5-5.1) mmol/L Chloride (98-107) mmol/L Carbon Dioxide (21-32) mmol/L Anion Gap (3-11) BUN (6-23) mg/dl Creatinine (0.6-1.2) mg/dl Est Cr Clr Drug Dosing ml/min eGFR BUN/Creatinine Ratio (10-20) Glucose (70-99(Fasting)) mg/dl POC Glucose 101 H 130 H (70-99) mg/dl Calcium (8.6-10.3) mg/dl Magnesium (1.7-2.4) mg/dl Total Bilirubin (0.2-1.0) mg/dl AST (13-39) U/L ALT (7-52) U/L Alkaline Phosphatase (34-104) U/L Troponin I High Sens 82.0 H* D (0-14) pg/ml Total Protein (6.0-8.3) gm/dl Albumin (3.4-5.0) gm/dl Globulin (2.5-4.0) gm/dl Albumin/Globulin Ratio (0.9-2) Triglycerides (0-150) mg/dl Cholesterol (0-200) mg/dl LDL Cholesterol, Calc mg/dl VLDL Cholesterol, Calc (0-30) mg/dl HDL Cholesterol mg/dl Cholesterol/HDL Ratio (0-5) Lipase (11-82) U/L Ethyl Alcohol mg/dL (<10.0) mg/dl ECG Data Attestation: I personally reviewed and interpreted this ECG as follows: Indication: + chest pain Additional Comments: Dual pacemaker rhythm at [address] elevation Compared to EKG 23 September 2024, T waves appear slightly increased in amplitude MDM Narrative Physical exam and history were performed. Nursing notes, EMR, and Medication List were personally reviewed. No social concerns were identified as barriers to patients care. History was provided by the Patient. Patient appears to have chest pain symptoms bringing her to the ER. IV access was established and labs were obtained. She was given aspirin and Nitropaste was applied. An order was placed for continuous cardiac monitoring. The monitor shows a rate of 62 with normal sinus rhythm. Patient's blood work is as above and was reviewed. She does not have a significant elevated white blood cell count, gross anemia, bandemia, or significant electrolyte imbalance. Transaminases not diagnostic. Initial troponin is elevated at 31. EKG remains nonischemic. Escalation of care was considered, and is felt to be necessary. She has a significant cardiac history and elevated troponin. Case was discussed my [facility] agreed to evaluate her here in the ER. Please see their dictation for further patient course, plan, and disposition. The chart was completed utilizing [employer] Voice Recognition Software. Grammatical errors, random word insertions, pronoun errors, and incomplete sentences are an occasional consequence of this system due to software limitations, ambient noise, and hardware issues. Any formal questions or concerns about the content, text, or information contained within the body of this dictation should be directly addressed to the provider for clarification. Impression & Plan Chest pain, Elevated troponin Discharge Plan Visit Data Chief Complaint: Chest Pain Stated Complaint: CHEST PAIN, HIGH BLOOD PRESSURE ED Provider: Kit Humphrey ED Midlevel Provider: Wilson Deutsch Discharge Problem: Chest pain, Elevated troponin Patient Disposition: Admitted As Inpatient Discharge Instructions Interventions: ED Discharge Assessment Last Done: 10/11/24 08:11
[2024-10-11] MEDS: ASPIRIN 81 MG CHEW PO STA (05:36)
[2024-10-11] MEDS: NITROGLYCERIN 2% OINTMENT 30GM TUBE EXT ONE (05:37)
[2024-10-11 05:39] LABS: Basophils # (auto) 0.05 K/uL (0.00-0.20); Eosinophils # (auto) 0.23 K/uL (0.00-0.50); Eosinophils % (auto) 4.4 %; Hematocrit (blood only) 41.8 % (37.0-47.0); Hemoglobin 13.5 g/dl (12.0-16.0); Immature Granulocytes # (auto) 0.03 K/uL (0.01-0.20); Immature Granulocytes % (auto) 0.6 %; Lymphocytes # (auto) 1.22 K/uL (1.20-3.40); Lymphocytes % (auto) 23.4 %; Mean Corpuscular Hemoglobin 28.1 pg (25.0-34.0); Mean Corpuscular Hgb Conc 32.3 g/dL (32.0-36.0); Mean Corpuscular Volume 86.9 fL (80.0-100.0); Mean Platelet Volume 10.8 fL (9.4-12.4); Monocytes # (auto) 0.27 K/uL (0.11-0.59); Monocytes % (auto) 5.2 %; Neutrophils # (auto) 3.41 K/uL (1.40-6.50); Neutrophils % (auto) 65.4 %; Platelet Count 154 K/uL (130-400); RDW Coefficient of Variation 13.5 % (11.5-14.5); RDW Standard Deviation 42.5 fL (36.4-46.3); Red Blood Count 4.81 M/uL (4.20-5.40); White Blood Count 5.21 K/ul (4.8-10.8)
[2024-10-11 05:55] LABS: Albumin Globulin Ratio 1.5 (0.9-2); Albumin Level 4.7 gm/dl (3.4-5.0); BUN Creatinine Ratio 18.6 (10-20); Bilirubin,Total 0.5 mg/dl (0.2-1.0); Calcium 9.6 mg/dl (8.6-10.3); Creatinine Clr Calc Pharmacy 36.1 ml/min; Globulin 3.1 gm/dl (2.5-4.0); Total Protein 7.8 gm/dl (6.0-8.3)
[2024-10-11 06:01] LABS: Troponin I High Sensitivity 31.9 pg/ml (0-14)
--- NOTE | 2024-10-11 06:39 | XRay Report ---
EXAM: XR chest 1V portable CLINICAL HISTORY: Chest pain, nonspecific. TECHNIQUE: An X-ray image of the chest is obtained using an AP projection. COMPARISON: Last study on 09/23/2024. FINDINGS: Pulmonary Parenchyma: Prominent bronchovascular markings both lungs with peribronchial wall cuffing, interstitial thickening and and alveolar opacities at both lungs, more at upper lung zones. Almost stable since the last study. No evidence of pleural effusion or pleural thickening. Heart and Mediastinum: Heart size is limited on this projection. No mediastinal widening or masses. No hilar or mediastinal lymphadenopathy. Bony Thorax: The bony thorax appears intact without fractures or deformities. Soft Tissues: A left-sided cardiac pacemaker with multiple wires projected over the heart, one of them shows kinking. Chest leads are noted. Bilateral mild acromioclavicular joint osteoarthritis. IMPRESSION: 1. Almost stability of previously described prominent bronchovascular markings both lungs with peribronchial wall cuffing, interstitial thickening and and alveolar opacities at both lungs, more at upper lung zones. likely suggesting interstitial edema (or chronic interstitial disease) with possible nfiltration / early pulmonary edema 2. Clinical correlation and further CT assessment are advised. Electronically signed by Hoang Mcneil 10-11-2024 06:39 AM
--- NOTE | 2024-10-11 06:44 | History & Physical Report ---
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 anticipation of ischemic workup ISS BSG goal 1 10-1 40 Elevated SS at risk protocol, DT precautions DVT prophylaxis. Heparin DNR as per patient Patient requesting updates from providers (Mr. John Painter, [phone]) Text document was generated using [employer] voice recognition software. It may contain grammatical or spelling errors. Kindly contact undersigned for clarification of any documentation item in question. History of Present Illness Chief Complaint: Chest pain Primary Care Provider: Luzma Yu MD History obtained from patient, family, and records. Medical history significant for chronic diastolic heart failure EF (55%, TTE 2024), CAD status post stent, SSS status post PPM, history of PAF as per records, ILD, hypertension, hyperlipidemia, DM 2 on oral medications, hypothyroidism, dementia, seizure disorder, chronic anemia (baseline hemoglobin of 11), alcohol abuse, past tobacco abuse. Last confinement July 2024 for seizure-like activity versus syncope. Patient discharged on Keppra course. Recent ER visit 3 weeks ago for unresponsiveness, possible cardiac event. Patient discharged home from the ER after evaluation by hospitalist service. 2 weeks ago, patient noted intermittent substernal pain episodes at home even at rest. No unusual cough or SOB symptoms. No radiation. Patient compliant with home medications. Intermittent relief with nitro tablet intake at home. SBP 170s at home at 1 point as per . PCP aware of chest pain episode over the weekend. Patient taking pills prepared by home health as per . Left-sided chest pain last night. Patient denies SOB, headache symptoms. Chest pain relieved by nitro administration at the ER. Patient currently comfortable. Medical History as above Surgical History : BTL, cholecystectomy, PPM Family History : Heart disease, anxiety/mood disorder Personal/Social history : Non-smoker, alcohol abuse as per records, retired [employer] employee Allergies Allergy/AdvReac Type Severity Reaction Status Date / Time latex Allergy Intermediate HIVES Verified 09/23/24 17:09 penicillin V Allergy Intermediate Hives Verified 09/23/24 17:09 adhesive Allergy Mild SKIN Verified 09/23/24 17:09 IRRITATION metformin AdvReac Intermediate Diarrhea Verified 09/23/24 17:09 olanzapine [From Zyprexa] AdvReac Intermediate lethargy Verified 09/23/24 17:09 Home Medications Medication Instructions Recorded Confirmed Type nitroglycerin 0.4 mg sublingual 0.4 mg sublingual DIRECTED PRN 06/16/18 10/11/24 History tablet (Nitrostat) Chest Pain atorvastatin 80 mg tablet 80 mg PO DAILY 03/12/21 10/11/24 History acetaminophen 500 mg tablet 1,000 mg PO Q6H PRN PAIN/FEVER 02/15/23 10/11/24 History (Tylenol Extra Strength) aspirin 81 mg tablet,delayed 81 mg PO QAM 04/28/23 10/11/24 History release magnesium oxide 400 mg PO QAM 04/28/23 10/11/24 History alendronate 70 mg tablet 70 mg PO WK 03/06/24 10/11/24 History isosorbide mononitrate 120 mg 120 mg PO QAM 03/06/24 10/11/24 History tablet,extended release 24 hr levothyroxine 50 mcg capsule 50 mcg PO DAILYBB 03/28/24 10/11/24 History solifenacin 10 mg tablet 10 mg PO DAILY 05/24/24 10/11/24 History thiamine HCl (vitamin B1) 100 mg 100 mg PO QAM #30 tabs 05/27/24 10/11/24 Rx tablet sacubitril 49 mg-valsartan 51 mg 1 tab PO BID #90 tabs 05/31/24 10/11/24 Rx tablet (Entresto) levetiracetam 500 mg tablet 500 mg PO BID #60 tabs 07/28/24 10/11/24 Rx (Keppra) gabapentin 100 mg capsule 100 mg PO HS 09/23/24 10/11/24 History carvedilol 6.25 mg tablet 6.25 mg PO BID 10/11/24 10/11/24 History Past Med/Surg History Problem List Anemia (Acute) Pacemaker (Acute) Syncope (Acute) Seizure-like activity (Acute) Acute respiratory failure with hypoxia Acute hyponatremia (Acute) Hypoxia (Acute) Pneumonia (Acute) Diarrhea (Acute) Interstitial lung disease S/P coronary artery stent placement Non-ST elevation PR (NSTEMI) (Acute) Chest pain (Acute) LBBB (left bundle branch block) Chest pain (Acute) Generalized weakness (Acute) Dyslipidemia Parainfluenza (Acute) Pneumonia (Acute) RAD (reactive airway disease) (Acute) UGIB (upper gastrointestinal bleed) SOB (shortness of breath) HBP (high blood pressure) GERD (gastroesophageal reflux disease) Osteoporosis AF (paroxysmal atrial fibrillation) Depression Diabetes mellitus, type 2 Fracture of L1 vertebra (Acute) Fall (Acute) Mixed hearing loss, bilateral Coronary artery disease Fatigue ICD (implantable cardioverter-defibrillator), biventricular, in situ Encounter for pre-operative examination Encounter for pre-operative examination Esophageal dysphagia Left knee pain (Acute) Left knee pain (Acute) Unstable angina Syncope (Acute) DVT prophylaxis Acute cystitis Ischemic cardiomyopathy Hypothyroidism PT DENIES. Medical History Chronic systolic heart failure Elevated troponin S/P right coronary artery (RCA) stent placement (2015) History of placement of stent in LAD coronary artery (2008) History of placement of stent in LAD coronary artery (2019) Hypomagnesemia Acute hypokalemia Non-ST elevation PR (NSTEMI) Pneumonia Acid reflux disease with ulcer Alcohol abuse, unspecified Anxiety state, unspecified Anxiety disorder Atrial fibrillation Coronary artery disease Cardiac arrest Cardiomyopathy Congestive heart failure, unspecified Congestive cardiomyopathy Cor athrscl-uns vessel Depressive disorder, not elsewhere classified Dysphagia, oropharyngeal phase Fecal incontinence Goiter Celia's thyroiditis Other and unspecified hyperlipidemia Ocular hypertension, unspecified eye Lumbago Lumbar compression fracture Old myocardial infarct Postmenopausal atrophic vaginitis Subclinical hypothyroidism Type 2 diabetes mellitus Unknown whether patient has any health problems Urinary tract infection FREQUENT Cancer SKIN CANCER Hypertension Anxiety GERD (gastroesophageal reflux disease) HLD (hyperlipidemia) CAD (coronary artery disease) Surgical History History of appendectomy History of cardiac cath 1 STENT (2016 @ [facility]) History of esophagogastroduodenoscopy (EGD) History of colonoscopy History of tonsillectomy S/P placement of cardiac pacemaker ~15-20 YEARS AGO. FOLLOWS WITH DR RUBI AND LAST CHECKED 4 MONTHS AGO History of cholecystectomy Family History Mother Family history of diabetes mellitus Blind Hearing loss Hypertension Allergies Asthma Sister Family history of diabetes mellitus Coronary heart disease Father No problems noted. Denies family history of No family history of adverse response to anesthesia No family history of bleeding disorder Heart disease Cancer Stroke Social History Smoking Status: Never smoker Tobacco Type: Cigarettes Second Hand Exposure: No; Do You Dip or Chew Tobacco: No; Hx Alcohol Use: Yes Alcohol type: beer and wine Alcohol Intake Frequency: 2-3 x /Week Hx Substance Use: No Preferred Language: Tristanian Communication Ability: Effective Park Interpretive Specialist Required: No Beliefs That Will Affect Care: None marital status: Current Living Situation: Spouse How many Children do You have: 1 Other Information That Helps Us Care for You: No Feels Safe at Home: Yes Safety Concerns: Feels Safe At This Time Assistive Devices: Glasses and Hearing Aid - Right Review of Systems Review of Systems: As per HPI, all other systems reviewed and negative Physical Exam Physical Exam: GENERAL: Oriented to day, hard of hearing, no respiratory distress SKIN: Pallor, warm HEENT: pale palpebral conjunctivae, no ptosis, dry buccal mucosa NECK : Supple, no tenderness CHEST : Decreased breath sounds, no tenderness HEART : RRR, no obvious murmurs ABDOMEN: Some distention, nontender EXTREMITIES : No LE swelling/tenderness, no other conspicuous deformities noted NEUROLOGIC : Oriented,, no facial asymmetry, hard of hearing, gait and stance t mable not assessed Results & Data Results & Data Vital Signs (Past 12 Hours) Vital Signs Temp Pulse Resp BP Pulse Ox O2 Del Method 10/11/24 06:33 65 18 96 10/11/24 06:30 117/76 10/11/24 06:30 117/76 10/11/24 06:27 66 17 97 10/11/24 06:18 66 19 97 10/11/24 06:00 108/64 10/11/24 06:00 108/64 10/11/24 06:00 108/64 10/11/24 06:00 108/64 10/11/24 05:26 78 10/11/24 05:14 37 C 69 20 132/80 97 Room Air Laboratory Results Laboratory Results WBC 5.21 K/ul (4.8-10.8) 10/11/24 05:21 RBC 4.81 M/uL (4.20-5.40) 10/11/24 05:21 Hgb 13.5 g/dl (12.0-16.0) 10/11/24 05:21 Hct 41.8 % (37.0-47.0) 10/11/24 05:21 MCV 86.9 fL (80.0-100.0) 10/11/24 05:21 MCH 28.1 pg (25.0-34.0) 10/11/24 05:21 MCHC 32.3 g/dL (32.0-36.0) 10/11/24 05:21 RDW Std Deviation 42.5 fL (36.4-46.3) 10/11/24 05:21 RDW Coeff of Chucky 13.5 % (11.5-14.5) 10/11/24 05:21 Plt Count 154 K/uL (130-400) 10/11/24 05:21 MPV 10.8 fL (9.4-12.4) 10/11/24 05:21 Immature Gran % (Auto) 0.6 % 10/11/24 05:21 Neut % (Auto) 65.4 % 10/11/24 05:21 Lymph % (Auto) 23.4 % 10/11/24 05:21 [place] % (Auto) 5.2 % 10/11/24 05:21 Eos % (Auto) 4.4 % 10/11/24 05:21 Baso % (Auto) 1.0 % 10/11/24 05:21 Neut # (Auto) 3.41 K/uL (1.40-6.50) 10/11/24 05:21 Lymph # (Auto) 1.22 K/uL (1.20-3.40) 10/11/24 05:21 [place] # (Auto) 0.27 K/uL (0.11-0.59) 10/11/24 05:21 Eos # (Auto) 0.23 K/uL (0.00-0.50) 10/11/24 05:21 Baso # (Auto) 0.05 K/uL (0.00-0.20) 10/11/24 05:21 Immature Gran # (Auto) 0.03 K/uL (0.01-0.20) 10/11/24 05:21 Sodium 137 mmol/L (136-145) 10/11/24 05:21 Potassium 4.0 mmol/L (3.5-5.1) 10/11/24 05:21 Chloride 103 mmol/L (98-107) 10/11/24 05:21 Carbon Dioxide 26 mmol/L (21-32) 10/11/24 05:21 Anion Gap 8 (3-11) 10/11/24 05:21 BUN 21 mg/dl (6-23) 10/11/24 05:21 Creatinine 1.13 mg/dl (0.6-1.2) 10/11/24 05:21 Est Cr Clr Drug Dosing 36.1 ml/min 10/11/24 05:21 eGFR 52.01 10/11/24 05:21 BUN/Creatinine Ratio 18.6 (10-20) 10/11/24 05:21 Glucose 137 mg/dl (70-99(Fasting)) H 10/11/24 05:21 Calcium 9.6 mg/dl (8.6-10.3) 10/11/24 05:21 Total Bilirubin 0.5 mg/dl (0.2-1.0) 10/11/24 05:21 AST 19 U/L (13-39) 10/11/24 05:21 ALT 19 U/L (7-52) 10/11/24 05:21 Alkaline Phosphatase 76 U/L (34-104) 10/11/24 05:21 Troponin I High Sens 31.9 pg/ml (0-14) H 10/11/24 05:21 Total Protein 7.8 gm/dl (6.0-8.3) 10/11/24 05:21 Albumin 4.7 gm/dl (3.4-5.0) 10/11/24 05:21 Globulin 3.1 gm/dl (2.5-4.0) 10/11/24 05:21 Albumin/Globulin Ratio 1.5 (0.9-2) 10/11/24 05:21 Lipase 35 U/L (11-82) 10/11/24 05:21 Impressions Chest X-Ray 10/11/24 05:21 EXAM: XR chest 1V portable CLINICAL HISTORY: Chest pain, nonspecific. TECHNIQUE: An X-ray image of the chest is obtained using an AP projection. COMPARISON: Last study on 09/23/2024. FINDINGS: Pulmonary Parenchyma: Prominent bronchovascular markings both lungs with peribronchial wall cuffing, interstitial thickening and and alveolar opacities at both lungs, more at upper lung zones. Almost stable since the last study. No evidence of pleural effusion or pleural thickening. Heart and Mediastinum: Heart size is limited on this projection. No mediastinal widening or masses. No hilar or mediastinal lymphadenopathy. Bony Thorax: The bony thorax appears intact without fractures or deformities. Soft Tissues: A left-sided cardiac pacemaker with multiple wires projected over the heart, one of them shows kinking. Chest leads are noted. Bilateral mild acromioclavicular joint osteoarthritis. IMPRESSION: 1. Almost stability of previously described prominent bronchovascular markings both lungs with peribronchial wall cuffing, interstitial thickening and and alveolar opacities at both lungs, more at upper lung zones. likely suggesting interstitial edema (or chronic interstitial disease) with possible nfiltration / early pulmonary edema 2. Clinical correlation and further CT assessment are advised. Electronically signed by Hoang Mcneil 10-11-2024 06:39 AM Diagnostic Findings EKG as per my interpretation : Rate 80, paced rhythm (1) Chest pain Chest pain type: precordial pain Qualified Code(s): R07.2 - Precordial pain
[2024-10-11] MEDS ORDERED: oxyCODONE HCL IR 5 MG TAB (IMMEDIATE RELEASE) PO PRN (06:48)
[2024-10-11] MEDS ORDERED: PROMETHAZINE 6.25 MG/50.25 ML BAG IV PRN (06:48)
[2024-10-11] MEDS: THIAMINE HCL 100 MG in SYRINGE 9 ML IV ONE (07:37)
[2024-10-11] MEDS ORDERED: ACETAMINOPHEN 325 MG TAB PO PRN (07:39)
--- OUTSIDE RECORDS SUMMARY | 2024-10-11 08:10 | External Medical Summary | Summary of Care ---
Author Name Unknown Organization [facility] Address [address] [place] [address] Phone [phone] Care Team Providers Care Talent Development Director Name Role Phone Luzma Yu MD Primary Care Provid er Reason for Visit * Reason Onset Date Comments Advice 10/03/2024 Encounter Details Date Type Department Care Team (Late st Contact Info) Description [facility] [address] [place] [phone] Luzma Yu MD [address] [facility] [place] [address] Advice Allergies Active Allergy Reactions Criticality Noted Date Comments Adhesive Tape 01/22/2001 local skin reaction Wound Dressings 05/13/2022 Other reaction(s): Skin irritation Aspirin 04/05/2021 Other reaction(s): Stomach upset Latex Hives 04/05/2021 Metformin Diarrhea High 06/03/2024 Penicillins 10/13/2003 hives documented as of this encounter (statuses as of 10/10/2024) Medications ECOTRIN LOW STRENGTH 81 MG OR [...] mouth in the morning. 90 Tablet 3 5 12:28 PM EST 02/26/20 24 Active Isosorbide Mononitrate ER 120 MG Oral Tablet Extended Release 24 Hour (Imdur)Indications :Ischemic cardiomyopathy Take 1 Tablet by mouth in the morning. 90 Tablet 3 5 12:28 PM EST 02/26/20 24 Active Thiamine HCl [...] breakfast or other meds) 90 Tablet 3 5 12:28 PM EST 02/26/20 24 Active Entresto 49-51 MG Oral Tablet (sacubitril-valsar collins 49-51 mg per tab)Indications:Tr ansient atrial fibrillation (HCC) Take 1 Tablet by mouth in the morning and 1 Tablet before bedtime. 180 Tablet 3 4 11:24 AM EST 05/30/20 24 Active Alendronate Sodium 70 MG Oral Tablet (Fosamax)Indicatio ns:Age-related osteoporosis without current pathological fracture Take 1 Tablet by mouth once a week. with 8 oz. water 30 minutes before first meal of the day. Remain upright for 30 min after taking tablet. 12 Tablet 3 07/22/19 25 Active Magnesium Oxide 400 MG Oral Capsule Take 1 Capsule by mouth in the morning. Active levETIRAcetam 500 MG Oral Tablet (Keppra)Indication s:Seizure-like activity (HCC) Take 1 Tablet by mouth in the morning and 1 Tablet before bedtime. 60 Tablet 11 08/05/19 25 Active Magnesium Oxide -Mg Supplement 400 (240 Mg) MG Oral Tablet (Mag-Ox)Indication s:Dyslipidemia, goal to be determined TAKE 1 TABLET BY MOUTH EVERY DAY IN THE MORNING 90 Tablet 08/26/19 25 Active Solifenacin Succinate 10 MG Oral Tablet (VESIcare)Indicati ons:Urge incontinence of urine Take 1 Tablet by mouth in the morning. 90 Tablet 3 08/24/19 25 Active OneTouch Verio w/Device KitIndications:Pre diabetes,Fall, sequela Test blood sugar as needed for weakness, fainting, up to four times a day. 1 Kit 09/27/19 25 Active OneTouch UltraSoft LancetsIndications :Prediabetes,Fall, sequela Test blood sugar as needed for weakness, fainting, up to four times a day. 100 Each 5 09/27/19 Active OneTouch Verio In Vitro Strip (Glucose Blood)Indications: Prediabetes,Fall, sequela Test blood sugar as needed for weakness, fainting, up to four times a day. 100 Strip 11 09/27/19 25 Active Carvedilol 6.25 MG Oral Tablet (Coreg) Take 1 Tablet by mouth in the morning and 1 Tablet before bedtime. 60 Tablet 1 09/30/19 25 Active Cephalexin 500 MG Oral Capsule (Keflex) Take 1 Capsule by mouth in the morning and 1 Capsule before bedtime. Do all this for 7 days. 14 Capsule 09/29/19 25 025 Hospital, Clinic, or Other Facility Administered Medication Ordered Dose Route Frequency Start Date End Date Status Albuterol Sulfate (Proventil) (5 MG/ML) 0.5% *conc* inhalation solution 2.5 mgIndications:Dyspnea and respiratory abnormalities,Abnormal CT scan, chest 2.5 mg NEBULIZER PRN 03/15/2024 03/15/2025 Active Albuterol Sulfate (Proventil) (2.5 MG/3ML) 0.083% inhalation solution 2.5 mgIndications:Dyspnea and respiratory abnormalities,Abnormal CT scan, chest 2.5 mg NEBULIZER PRN 03/15/2024 03/15/2025 Active cefTRIAXone (Rocephin) (350 mg/mL) inj dilution 1,000 mgIndications:Urinary tract infection without hematuria, site unspecified 1000 mg IM Q24H 09/29/2024 Active documented as of this encounter (statuses as of 10/10/2024) Active Problems Problem Noted Date Diagnosed Date Seizure-like activity 08/05/2024 History of dementia associated with alcoholism 0 08/05/2024 Encephalopathy acute 08/05/2024 Food insecurity 07/18/2024 Overview: Per [facility] Protocol Assessment & Plan (09/30/2024 6:15 PM EDT): [facility] case management arranged food box delivery. Accompanying friend aware and plans to look into food options with local resources as well. Fall 06/03/2024 Physical deconditioning 06/03/2024 Hypertensive heart [...] heart artery stent 08/06/2002 Ischemic cardiomyopathy 08/06/2002 Assessment & Plan (09/30/2024 6:15 PM EDT): Transient atrial fibrillation 08/06/2002 Hypothyroidism 08/06/2002 FEM STRESS INCONTINENCE 06/01/2002 GENERALIZED ANXIETY DIS documented as of this encounter (statuses as of 10/10/2024) Resolved Problems Problem Noted Date Diagnosed Date [...] as of this encounter (statuses as of 10/10/2024) Immunizations Name Administration Dates Next Due COVID-19 [...] a child, family member or friend? No 09/26/2024 Does your family need help f inding childcare? (Household - for ages 0-17 years) Not on file 09/26/2024 Clothing Answer Date Recorded Have you been unable to get clothing when it was really needed? No 09/26/2024 Is your family able to get c lothes or diapers when needed? (Household - for ages 0-17 years) Not on file 09/26/2024 Personal Safety Answer Date Recorded Do you feel unsafe or have concerns for your saf ety? No 09/26/2024 Do you have concerns for you r family's safety? (Household - for ages 0-17 years) Not on file 09/26/2024 Utilities Answer Date Recorded Do you have trouble paying y our heating, water, or electric bill? Yes 09/26/2024 Is your family able to pay t he heat, water, or electric bill? (Household - for ages 0-17 years) Not on file 09/26/2024 Does your family have access to good internet? (Household - for ages 0-17 years) Not on file 09/26/2024 Employment Status Answer Date Recorded Are you unemployed or without regular income? Ye s 09/26/2024 Does the household have a re gular source of income? (Household - for ages 0-17 years) Not on file 09/26/2024 Social Connections Answer Date Recorded How often do you feel lonely or isolated from those around you? Sometimes 09/26/2024 Financial Resource Strain Answer Date R ecorded Do you have any trouble payi ng for your medications, or do you think you might in the future? Yes 09/26/2024 Does your family have troubl e paying for medicine? (Household - for ages 0-17 years) Not on file 09/26/2024 Transportation Needs Answer Date Record ed Do you have trouble getting a ride to medical visits or work? (Adult - for ages 18 years and over) Not on file 09/26/2024 Does your family have a hard time getting a ride to doctors visits? (Household - for ages 0-17 years) Not on file 09/26/2024 Has lack of transportation k ept you from medical appointments, meetings, work, or from getting things needed for daily living? Check all that apply. Yes, it has kept me from medical appointments 09/26/2024 Do you (or your family) have trouble finding or paying for a ride (transportation)? (Household - for ages 0-17 years) Not on file 09/26/2024 Housing Stability Answer Date Recorded Do you currently live in a s helter or have no steady place to sleep at night? No 09/26/2024 Do you think you are at risk of becoming homeless? (Adult - for ages 18 years and over) Not on file 09/26/2024 Does your family worry about paying for your home or becoming homeless? (Household - for ages 0-17 years) Not on file 0 09/26/2024 Are you homeless or worried that you might be in the future? No 09/26/2024 Are you (or your family) julio eless [...] ages 0-17 years) Not on file 06/21/2024 Food Insecurity Answer Date Recorded Within the past 12 months, y ou worried that your food would run out before you got the money to buy more. Sometimes true Within the past 12 months, t he food you bought just didn't last and you didn't have money to get more. Sometimes true Do you need food for this week? Yes 09/26/2024 Comments No Sex and Gender Information Value Date Recorded Sex Assigned at Not on file Legal Sex Female 7:02 AM EST Gender Identity Not on file Sexual Orientation Not on file Occupation Industry Job Start Date Job End Date [employer] Not on file Not on file Not on file documented as of this encounter Miscellaneous Notes * Telephone Encounter - Ashley Horta LPN - 10/10/2024 11:06 AM EDT Shi returning call. Informed of message. She is inquiring if there are parameters on BS to call the office? Call back Sarathohluli at [phone] and fax order to [phone] * Telephone Encounter - Diana William LPN - 10/08/2024 11:39 AM EDT Tried to call Alma with but we got disconnect and I was unable to leave a message. Attempted to call Shi from and we got disconnected. When returns call, ok for ARNALDO to relay message, please refer to below documentation. If needed, can transfer to dedicated nurse line. * Telephone Encounter - Luzma Yu MD - 10/04/2024 2:38 PM EDT Please advise nurse: Check fasting sugar once daily in the morning. Check sugar with any alterations in mentation or consciousness. * Telephone Encounter - Amber Chung LPN - 10/03/2024 11:40 AM EDT Concerns PattyRN, Calling from: [facility] Report/Concerns of: BS Symptoms: none Vitals: T 98 P 72 RR 18 BP 94/60 right arm SP O2 93 room air Lung sounds clear Weight 121.9 Blood sugar 172 after breakfast Left ankle 18 Right ankle 18.5 Narrative: [facility] Patient is not sure when to check her sugars. She checked it this morning after eating a breakfast bar. Please advise. Call back Shi with any advice or orders at [phone] Please fax new orders to [facility] * Telephone Encounter - Janice Mack OSA - 10/03/2024 11:37 AM EDT Reason for patient's call: Shi with [facility] calling to speak to a nurse Caller was transferred to Amber at the nurse line. documented in this encounter Plan of Treatment Upcoming Encounters Date Type Department Care Team (Late st Contact Info) Description 10/12/2024 12:00 PM EDT Office Visit Pulmonary Medicine, [facility] [address] [place] [phone] Danyel Drummond MD [address] [facility] [address] 11/02/2024 10:40 AM EDT Office Visit [facility] [address] [facility] [place] [phone] Luzma Yu MD [address] [facility] [place] [address] 05/02/2025 9:00 AM EDT Home Visit Care at Home [address] [place] [address] Roz Zarate PA-C [address] [place] [address] Health Maintenance Due Date Last Done Comments Cologuard 1998 Colonoscopy 1998 Fecal Occult Blood Test 1998 Sigmoidoscopy 1998 COVID-19 Vaccine ( season) 2024 11/06/2020, 09/27/2020 Influenza Vaccine (FLU shot) (Season Ended) 2025 05/18/2023, 05/09/2022 Adult Wellness Visit 05/03/2025 05/03/2024 Depression Monitoring 05/03/2025 05/03/2024 Albumin/Creatinine Ratio 05/20/2025 05/20/2022 Mammogram 07/14/2025 07/14/2024, 03/2025, 11/24/2022, Additional history exists DXA Scan 07/27/2025 07/27/2023, 07/27/2023 GFR 09/29/2025 09/29/2024, 03/07, 06/08/2023, Additional history exists HbA1c 09/29/2025 09/29/2024, 03/07, 06/08/2023, Additional history exists TSH 09/29/2025 09/29/2024, 03/07, 06/08/2023, Additional history exists DTap/Tdap Vaccines (2 - Td or Tdap) 10/31/2032 10/31/2022 Pneumococcal Vaccine: 50+ Years Completed 05/09/2022 VITAMIN D LEVEL ONCE IN A LIFETIME-USE SMARTSET# [id number] Completed 11/03/2022, 05/09/2022 Diabetic Eye Exam Discontinued [...] on patient's age to complete this topic Meningitis B Vaccine (Bexsero/Trumemba) Aged Out No longer eligible based on patient's age to complete this topic Zoster Vaccines Discontinued documented as of this encounter Medical Devices Not on filedocumented as of this encounter Care Teams Talent Development Director Relationship Specialty Start Date End Date Luzma Yu MD [address] [place] [address] PCP - General Family Medicine 04/05/21 documented as of this encounter
--- OUTSIDE RECORDS SUMMARY | 2024-10-11 08:10 | External Medical Summary | Summary of Care ---
Author Name Unknown Organization [facility] Address [address] [facility] [place] [address] Phone [phone] Care Team Providers Care Electric Freight Car Operator Name Role Phone Luzma Yu MD Primary Care Provid er Reason for Visit * Reason Comments eRx-Medication Refill Encounter Details Date Type Department Care Team (Late st Contact Info) Description 10/09/[address] [facility] [address] [place] [phone] Luzma Yu MD [address] [facility] [place] [address] Urge incontinence of urine Allergies Active Allergy Reactions Criticality Noted Date [...] mouth in the morning. 90 Tablet 3 08/18/2024 12:28 PM EST 02/26/20 24 Active Isosorbide Mononitrate ER 120 MG Oral Tablet Extended Release 24 Hour (Imdur)Indications :Ischemic cardiomyopathy Take 1 Tablet by mouth in the morning. 90 Tablet 3 08/18/2024 12:28 PM EST 02/26/20 24 Active Thiamine [...] breakfast or other meds) 90 Tablet 3 08/18/2024 12:28 PM EST 02/26/20 24 Active Entresto 49-51 MG Oral Tablet (sacubitril-valsar collins 49-51 mg per tab)Indications:Tr ansient atrial fibrillation (HCC) Take 1 Tablet by mouth in the morning and 1 Tablet before bedtime. 180 Tablet 3 06/01/2024 11:24 AM EST 05/30/20 Active Alendronate Sodium 70 MG Oral Tablet [...] morning. 90 Tablet 3 08/24/19 25 Active PalmTouch Verio w/Device KitIndications:Pre diabetes,Fall, sequela Test blood sugar as needed for weakness, fainting, up to four times a day. 1 Kit 09/27/19 Active PalmTouch UltraSoft LancetsIndications :Prediabetes,Fall, sequela Test blood sugar as needed for weakness, fainting, up to four times a day. 100 Each 5 09/27/19 Active PalmTouch Verio In Vitro Strip (Glucose Blood)Indications: Prediabetes,Fall, sequela Test blood sugar as needed for weakness, fainting, up to four times a day. 100 Strip 09/27/19 Active Carvedilol 6.25 MG Oral Tablet (Coreg) Take 1 Tablet by mouth in the morning and 1 Tablet before bedtime. 60 Tablet 1 09/30/19 Active Hospital, Clinic, or Other Facility Administered [...] Assessment & Plan (09/30/2024 6:15 PM EDT): [facility] case management arranged food box delivery. Accompanying [...] 09/26/2024 Does the household have a re lar source of income? (Household - for ages [...] Job Start Date Job End Date [employer] Not on file Not on file Not on file documented as of this encounter Miscellaneous Notes * Telephone Encounter - Abigail Cheema PA-C - 10/10/2024 2:33 PM EDTRefused Prescriptions: Disp Refills Solifenacin Succinate 5 MG Oral Tablet (VE*90 Tab*3 Sig: TAKE 1TABLET BY MOUTH EVERY DAY IN THE MORNINGRefused By: Vera CHEEMA for Refusal: Dose needs c larification - * Telephone Encounter - Abigail Cheema PA-C - 10/10/2024 2:33 PM EDT On 10 mg dose Abigail Cheema PA-C ,Inboxologist Note: * Telephone Encounter - Hortensia Silvestre LPN - 10/10/2024 10:29 AM EDTPending Prescriptions: Disp Refills Solifenacin Succinate 5 MG Oral Tablet [Ph*90 Tab*3 Sig: TAKE 1 TABLET BY MOUTH EVERY DAY IN THE MORNING * Telephone Encounter - Ariel Lopes - 10/09/2024 7:35 PM EDTPending Prescriptions: Disp Refills Solifenacin Succinate 5 MG Oral Tablet [Ph*90 Tab*3 Sig: TAKE 1TABLET BY MOUTH EVERY DAY IN THE MORNING documented in this encounter Plan of Treatment Upcoming Encounters Date Type Department Care Team (Late st Contact Info) Description 10/12/2024 12:00 PM EDT Office Visit Pulmonary Medicine, [facility] [address] [place] [phone] Danyel Drmumond MD [address] [facility] [address] 11/02/2024 10:40 AM EDT [facility] Visit [facility] [address] [facility] [place] [phone] Luzma Yu MD [address] [facility] [place] [address] 05/02/2025 9:00 AM EDT Home Visit Care at Home [address] [place], [place] [id number] Roz Zarate PA-C [address] [place], [place] [id number] Health Maintenance Due Date Last Done Comments [...] D LEVEL ONCE IN A LIFETIME-USE SMARTSET# [id number] Completed 11/03/2022, 05/09/2022 Diabetic Eye Exam Discontinued [...] as of this encounter Visit Diagnoses Diagnosis Urinary tract infection without hematuria, site unspecified- Primary Hypotension, unspecified hypotension type Ischemic cardiomyopathy Other specified forms of chronic ischemic heart disease S/P coronary artery stent placement Postsurgical percutaneous transluminal coronary angioplasty status ICD (implantable cardioverter-defibrillator) in place Food insecurity Urge incontinence of urine Urge incontinence documented in this encounter Care Teams Electric Freight Car Operator Relationship Specialty Start Date End Date Luzma Yu MD [facility] [place] [address] PCP - General Family Medicine 04/05/21 documented as of this encounter
--- OUTSIDE RECORDS SUMMARY | 2024-10-11 08:11 | External Medical Summary | Summary of Care ---
Author Name Unknown Organization [facility] Address [address] [facility] [place] [address] Phone [phone] Care Team Providers Care Network Strategist Name Role Phone Luzma Yu MD Primary Care Provid er Reason for Visit * Reason Onset Date Comments Advice 10/03/2024 Encounter Details Date Type Department Care Team (Late st Contact Info) Description 10/03[facility]2024 [facility] [address] [place] [phone] Luzma Yu MD [address] [facility] [place] [address] Advice Allergies Active Allergy Reactions Criticality Noted Date Comments Adhesive Tape 01/22/2001 local skin reaction Wound Dressings 05/13/2022 Other reaction(s): Skin irritation Aspirin 04/05/2021 Other reaction(s): Stomach upset Latex Hives 04/05/2021 Metformin Diarrhea High 06/03/2024 Penicillins 10/13/2003 hives documented as of this encounter (statuses as of 10/04/2024) Medications ECOTRIN LOW STRENGTH 81 MG OR [...] morning. 90 Tablet 3 08/24/19 25 Active TrenDemonTouch Verio w/Device KitIndications:Pre diabetes,Fall, sequela Test blood sugar as needed for weakness, fainting, up to four times a day. 1 Kit 09/27/19 25 Active TrenDemonTouch UltraSoft LancetsIndications :Prediabetes,Fall, sequela Test blood sugar as needed for weakness, fainting, up to four times a day. 100 Each 5 09/27/19 Active OneTouch Verio In Vitro Strip (Glucose Blood)Indications: Prediabetes,Fall, sequela Test blood sugar as needed for weakness, fainting, up to four times a day. 100 Strip 11 09/27/19 25 Active Cephalexin 500 MG Oral Capsule (Keflex) Take 1 Capsule by mouth in the morning and 1 Capsule before bedtime. Do all this for 7 days. 14 Capsule 09/29/19 25 025 Active Carvedilol 6.25 MG Oral Tablet (Coreg) Take 1 Tablet by mouth in the morning and 1 Tablet before bedtime. 60 Tablet 1 09/30/19 25 Active Hospital, Clinic, or Other Facility [...] as of this encounter (statuses as of 10/04/2024) Active Problems Problem Noted Date Diagnosed Date Seizure-like activity 08/05/2024 History of dementia associated with alcoholism 0 08/05/2024 Encephalopathy acute 08/05/2024 Food insecurity 07/18/2024 Overview: [facility] Protocol Assessment & Plan (09/30/2024 6:15 PM EDT): [facility] case management arranged food box delivery. Accompanying [...] as of this encounter (statuses as of 10/04/2024) Resolved Problems Problem Noted Date Diagnosed Date [...] as of this encounter (statuses as of 10/04/2024) Immunizations Name Administration Dates Next Due COVID-19 [...] Job Start Date Job End Date [employer] Not on file Not on file Not on file documented as of this encounter Miscellaneous Notes * Telephone Encounter - Luzma Yu MD - 10/04/2024 2:38 PM EDT Please advise nurse: Check fasting sugar once daily in the morning. Check sugar with any alterations in mentation or consciousness. * Telephone Encounter - Amber Chung LPN - 10/03/2024 11:40 AM EDT Concerns PatmarissaRN, Calling from: [facility] Report/Concerns of: BS Symptoms: none Vitals: T 98 P 72 RR 18 BP 94/60 right arm SP O2 93 room air Lung sounds clear Weight 121.9 Blood sugar 172 after breakfast Left ankle 18 Right ankle 18.5 Narrative: Shi calling from [facility]. Patient is not sure when to check her sugars. She checked it this morning after eating a breakfast bar. Please advise. Call back Shi with any advice or orders at [phone] Please fax new orders to [facility] * Telephone Encounter - Janice Mack OSA - 10/03/2024 11:37 AM EDT Reason for patient's call: Shi with [facility] calling to speak to a nurse Caller was transferred to [facility] at the nurse line. documented in this encounter Plan of Treatment Upcoming Encounters Date Type Department Care Team (Late st Contact Info) Description 10/12/2024 12:00 PM EDT Office Visit Pulmonary Medicine, [facility] [address] [place] [phone] Danyel Drummond MD [address] [facility] [place] [address] 11/02/2024 10:40 AM EDT [facility] [address] [place] [phone] Luzma Yu MD [address] [place] [address] 05/02/2025 9:00 AM EDT Home Visit Care at Home [address] [place] [address] Roz Zarate PA-C [address] [place] [address] Health Maintenance Due Date Last Done Comments [...] D LEVEL ONCE IN A LIFETIME-USE SMARTSET# [id number] Completed 11/03/2022, 05/09/2022 Diabetic Eye Exam Discontinued [...] filedocumented as of this encounter Care Teams Network Strategist Relationship Specialty Start Date End Date Luzma Yu MD [address] [facility] [place] [address] PCP - General Family Medicine 04/05/21 documented as of this encounter
--- OUTSIDE RECORDS SUMMARY | 2024-10-11 08:11 | External Medical Summary | Summary of Care ---
Author Name Unknown Organization [facility] Address [address] [facility] [place] [address] Phone [phone] Care Team Providers Care Supervisor Paint Department Name Role Phone Luzma Yu MD Primary Care Provid er Reason for Visit * Reason Onset Date Comments Advice 10/03/2024 Encounter Details Date Type Department Care Team (Late st Contact Info) Description [facility] [address] [place] [phone] Luzma Yu MD [address] [facility] [place] [address] Advice Allergies Active Allergy Reactions Criticality Noted Date Comments Adhesive Tape 01/22/2001 local skin reaction Wound Dressings 05/13/2022 Other reaction(s): Skin irritation Aspirin 04/05/2021 Other reaction(s): Stomach upset Latex Hives 04/05/2021 Metformin Diarrhea High 06/03/2024 Penicillins 10/13/2003 hives documented as of this encounter (statuses as of 10/08/2024) Medications ECOTRIN LOW STRENGTH 81 MG OR [...] as of this encounter (statuses as of 10/08/2024) Active Problems Problem Noted Date Diagnosed Date Seizure-like activity 08/05/2024 History of dementia associated with alcoholism 0 08/05/2024 Encephalopathy acute 08/05/2024 Food insecurity 07/18/2024 Overview: Per [facility] Protocol Assessment & Plan (09/30/2024 6:15 PM EDT): [facility] case management arranged food box delivery. Accompanying [...] as of this encounter (statuses as of 10/08/2024) Resolved Problems Problem Noted Date Diagnosed Date [...] as of this encounter (statuses as of 10/08/2024) Immunizations Name Administration Dates Next Due COVID-19 [...] Job Start Date Job End Date [employer] Not on file Not on file Not [...] 11:40 AM EDT Concerns PattyRN, Calling from: [facility] Report/Concerns of: BS Symptoms: none Vitals: T 98 P 72 RR 18 BP 94/60 right arm SP O2 93 room air Lung sounds clear Weight 121.9 Blood sugar 172 after breakfast Left ankle 18 Right ankle 18.5 Narrative: Shi calling from [facility]. Patient is not sure when to check her sugars. She checked it this morning after eating a breakfast bar. Please advise. Call back Shi with any advice or orders at [phone] Please fax new orders to [facility] * Telephone Encounter - Janice Mack OSA - 10/03/2024 11:37 AM EDT Reason for patient's call: Shi with [facility] calling to speak to a nurse Caller was transferred to [facility] at the nurse line. documented in this encounter Plan of Treatment Upcoming Encounters Date Type Department Care Team (Late st Contact Info) Description 10/12/2024 12:00 PM EDT Office Visit Pulmonary Medicine, [facility] [address] [place] [phone] Danyel Drummond MD [address] [place] [address] 11/02/2024 10:40 AM EDT Office Visit [facility] [address] [facility] [place] [place] [address] Luzma Yu MD [address] [facility] [address] 05/02/2025 9:00 AM EDT Home Visit Care at Home [address] [place] [address] Roz Zarate PA-C [address] [place] [address] Health Maintenance Due Date Last Done Comments Cologuard 1998 Colonoscopy 1998 Fecal Occult Blood Test 1998 Sigmoidoscopy 1998 COVID-19 Vaccine ( season) 2024 11/06/2020, 09/27/2020 Influenza Vaccine (FLU shot) (Season Ended) 2025 05/18/2023, 05/09/2022 Adult Wellness Visit 05/03/2025 05/03/2024 Depression Monitoring 05/03/2025 05/03/2024 Albumin/Creatinine Ratio 05/20/2025 05/20/2022 Mammogram 07/14/2025 07/14/2024, 01/0 03/2025, 11/24/2022, Additional history exists DXA Scan 07/27/2025 07/27/2023, 07/27/2023 GFR 09/29/2025 09/29/2024, 03/07, 06/08/2023, Additional history exists HbA1c 09/29/2025 09/29/2024, 03/07, 06/08/2023, Additional history exists TSH 09/29/2025 09/29/2024, 03/07, 06/08/2023, Additional history exists DTap/Tdap Vaccines (2 - Td or Tdap) 10/31/2032 10/31/2022 Pneumococcal Vaccine: 50+ Years Completed 05/09/2022 VITAMIN D LEVEL ONCE IN A LIFETIME-USE SMARTSET# [id number] Completed 11/03/2022, 05/09/2022 Diabetic Eye Exam Discontinued [...] as of this encounter Care Teams Supervisor Paint Department Relationship Specialty Start Date End Date Luzma Yu MD [facility] [place] [id number] PCP - General Family Medicine 04/05/21 documented as of this encounter
--- OUTSIDE RECORDS SUMMARY | 2024-10-11 08:11 | External Medical Summary | Summary of Care ---
Author Name Unknown Organization [facility] Address [address] [facility] [place] [address] Phone [phone] Care Team Providers Care Human Resources Department Supervisor Name Role Phone Luzma Yu MD Primary Care Provid er Encounter Details Date Type Department Care Team (Late st Contact Info) Description 09/23/2024 Result Scan Unspecified Department <No scans attached> [...] morning. 90 Tablet 3 08/24/19 25 Active Hospital, Clinic, or Other Facility [...] Assessment & Plan (09/30/2024 6:15 PM EDT): [facility] case management arranged food box delivery. Accompanying [...] Job Start Date Job End Date [employer] Not on file Not on file Not on file documented as of this encounter Plan of Treatment Upcoming Encounters Date Type Department Care Team (Late st Contact Info) Description 10/12/2024 12:00 PM EDT Office Visit Pulmonary Medicine, [facility] [address] [place] [phone] Danyel Drummond MD [address] [facility] [place] [id number] 11/02/2024 10:40 AM EDT Office Visit [facility] [address] [facility] [phone] Luzma Yu MD 226 [facility] [place] [address] 05/02/2025 9:00 AM EDT Home Visit Care at Home [address] [place] [address] Roz Zarate PA-C [address] [place] [address] Health Maintenance Due Date Last Done Comments [...] D LEVEL ONCE IN A LIFETIME-USE SMARTSET# [id number] Completed 11/03/2022, 05/09/2022 Diabetic Eye Exam Discontinued [...] Procedure Name Priority Date/Time Associated Diagnosis Comments EKG SCANNED RESULT 09/23/2024 documented in this encounter Results * EKG SCANNED RESULT (09/23/2024) 09/23/2024 us No Physician Data Unknown EKG Final Result documented in this encounter Care Teams Human Resources Department Supervisor Relationship Specialty Start Date End Date Luzma Yu MD [address] [place] [address] PCP - General Family Medicine 04/05/21 documented as of this encounter
--- OUTSIDE RECORDS SUMMARY | 2024-10-11 08:11 | External Medical Summary | Summary of Care ---
Author Name Unknown Organization [facility] Address [address] [facility] [place] [address] Phone [phone] Care Team Providers Care Pastrycook'S Assistant Name Role Phone Luzma uY MD Primary Care Provid er Encounter Details Date Type Department Care Team (Late st Contact Info) Description 09/30/2024 [facility]phone [facility] [address] [place] [phone] Rafat Samayoa PA-C [address] [employer] [place] [address] Allergies Active Allergy Reactions Criticality Noted Date Comments Adhesive Tape 01/22/2001 local skin reaction Wound Dressings 05/13/2022 Other reaction(s): Skin irritation Aspirin 04/05/2021 Other reaction(s): Stomach upset Latex Hives 04/05/2021 Metformin Diarrhea High 06/03/2024 Penicillins 10/13/2003 hives documented as of this encounter (statuses as of 10/03/2024) Medications ECOTRIN LOW STRENGTH 81 MG OR [...] Tablet 3 08/18/2024 12:28 PM EST 02/26/20 Active Thiamine HCl 100 [...] 180 Tablet 3 06/01/2024 11:24 AM EST 11/25/20 24 Active Alendronate Sodium 70 MG Oral [...] a day. 1 Kit 09/27/19 25 Active [employer] Anytime | AnywhereTouch UltraSoft LancetsIndications :Prediabetes,Fall, sequela Test blood sugar [...] as of this encounter (statuses as of 10/03/2024) Active Problems Problem Noted Date Diagnosed Date Seizure-like activity 08/05/2024 History of dementia associated with alcoholism 0 08/05/2024 Encephalopathy acute 08/05/2024 Food insecurity 07/18/2024 Overview: Per [facility] Protocol Assessment & Plan (09/30/2024 6:15 PM EDT): [facility] case management arranged food box delivery. Accompanying [...] as of this encounter (statuses as of 10/03/2024) Resolved Problems Problem Noted Date Diagnosed Date [...] as of this encounter (statuses as of 10/03/2024) Immunizations Name Administration Dates Next Due COVID-19 [...] Job Start Date Job End Date [employer] Not on file Not on file Not on file documented as of this encounter Miscellaneous Notes * Telephone Encounter - Hortensia Silvestre LPN - 10/03/2024 11:51 AM EDT OV note and med list faxed * Telephone Encounter - Rafat Samayoa PA-C - 10/03/2024 8:47 AM EDT That's ok. Please fax last OV note and current medication list to [facility] so they have an update on her medications for their records. * Telephone Encounter - Devonte Mckeon OSA - 09/30/2024 3:09 PM EDT Pt had appointment with Rafat Samayoa on 09/29 Pt calling stating she has an appointment on 12/12 with Cardiology at [facility]. Pt asking if this is a soon enough appointment. Please advise pt at [phone] documented in this encounter Plan of Treatment Upcoming Encounters Date Type Department Care Team (Late st Contact Info) Description 10/12/2024 12:00 PM EDT Office Visit Pulmonary Medicine, [facility] [address] [place] [phone] Danyel Drummond MD [address] [facility] [place] [address] 11/02/2024 10:40 AM EDT Office Visit [facility] [place]is [place] [address] [place] [phone] Luzma Yu MD [address] [place] [address] 05/02/2025 9:00 AM EDT Home Visit Care at Home [address] [facility] [place] [address] Roz Zarate PA-C [address] [place] [address] Health Maintenance Due Date Last Done Comments Cologuard 1998 Colonoscopy 1998 Fecal Occult Blood Test 1998 Sigmoidoscopy 1998 COVID-19 Vaccine ( season) 2024 11/06/2020, 09/27/2020 Influenza Vaccine (FLU shot) (#1) 2024 05/18/2023, 05/09/2022 Adult Wellness Visit 05/03/2025 05/03/2024 Depression Monitoring 05/03/2025 05/03/2024 Albumin/Creatinine Ratio 05/20/2025 05/20/2022 Mammogram 07/14/2025 07/14/2024, 0 03/2025, 11/24/2022, Additional history exists DXA Scan 07/27/2025 07/27/2023, 07/27/2023 GFR 09/29/2025 09/29/2024, 03/07, 06/08/2023, Additional history exists HbA1c 09/29/2025 09/29/2024, 03/07, 06/08/2023, Additional history exists TSH 09/29/2025 09/29/2024, 03/07, 06/08/2023, Additional history exists DTap/Tdap Vaccines (2 - Td or Tdap) 10/31/2032 10/31/2022 Pneumococcal Vaccine: 50+ Years Completed 05/09/2022 VITAMIN D LEVEL ONCE IN A LIFETIME-USE SMARTSET# [id number] Completed 11/03/2022, 05/09/2022 Diabetic Eye Exam Discontinued [...] filedocumented as of this encounter Care Teams Pastrycook'S Assistant Relationship Specialty Start Date End Date Luzma Yu MD [address] [place] [address] PCP - General Family Medicine 04/05/21 documented as of this encounter"
--- OUTSIDE RECORDS SUMMARY | 2024-10-11 08:11 | External Medical Summary | Summary of Care ---
Author Name Unknown Organization [facility] Address [address] [facility] [place] [address] Phone [phone] Care Team Providers Care Taxation Inspector Name Role Phone Luzma Yu MD Primary Care Provid er Reason for Visit * Reason Onset Date Comments Nurse Documentation 09/30/2024 Encounter Details Date Type Department Care Team (Late st Contact Info) Description 09/30/2024 Telephone [facility] [address] [facility] [place] [address] Luzma Yu MD 226 [place] [address] Nurse Documentation Allergies Active Allergy Reactions Criticality Noted Date Comments Adhesive Tape 01/22/2001 local skin reaction Wound Dressings 05/13/2022 Other reaction(s): Skin irritation Aspirin 04/05/2021 Other reaction(s): Stomach upset Latex Hives 04/05/2021 Metformin Diarrhea High 06/03/2024 Penicillins 10/13/2003 hives documented as of this encounter (statuses as of 09/30/2024) Medications ECOTRIN LOW STRENGTH 81 MG OR [...] morning. 90 Tablet 3 08/24/19 25 Active L[employer]ouch Verio w/Device KitIndications:Pre diabetes,Fall, sequela Test blood sugar as needed for weakness, fainting, up to four times a day. 1 Kit 09/27/19 Active OneTouch UltraSoft LancetsIndications :Prediabetes,Fall, sequela Test [...] as of this encounter (statuses as of 09/30/2024) Active Problems Problem Noted Date Diagnosed Date Seizure-like activity 08/05/2024 History of dementia associated with alcoholism 0 08/05/2024 Encephalopathy acute 08/05/2024 Food insecurity 07/18/2024 Overview: Per [facility] Protocol Assessment & Plan (09/30/2024 6:15 PM EDT): [facility] case management arranged food box delivery. [...] as of this encounter (statuses as of 09/30/2024) Resolved Problems Problem Noted Date Diagnosed Date [...] as of this encounter (statuses as of 09/30/2024) Immunizations Name Administration Dates Next Due COVID-19 [...] Job Start Date Job End Date [employer] Not on file Not on file Not on file documented as of this encounter Miscellaneous Notes * Telephone Encounter - Estefanía Salgado, MED ASSIST - 09/30/2024 3:41 PM EDT Received Fax for BFPROVIDERS: Dr. Luzma Yu ORDER received from [facility] [employer] [facility] FAXED documented in this encounter Plan of Treatment Upcoming Encounters Date Type Department Care Team (Late st Contact Info) Description 10/12/2024 12:00 PM EDT Office Visit Pulmonary Medicine, [facility] [address] [place] [phone] Danyel Drummond MD [address] [place] [address] 11/02/2024 10:40 AM EDT Office Visit [facility] [address] [place] [address] Luzma Yu MD [address] [facility] [place] [address] 05/02/2025 9:00 AM EDT Home Visit Care at Home [address] [place] [address] Roz Zarate PA-C [address] [place] [address] Health Maintenance Due Date Last [...] D LEVEL ONCE IN A LIFETIME-USE SMARTSET# [id number] Completed 11/03/2022, 05/09/2022 Diabetic Eye Exam Discontinued [...] filedocumented as of this encounter Care Teams Taxation Inspector Relationship Specialty Start Date End Date Luzma Yu MD [address] [place] [address] PCP - General Family Medicine 04/05/21 documented as of this encounter
--- OUTSIDE RECORDS SUMMARY | 2024-10-11 08:11 | External Medical Summary | Summary of Care ---
Author Name Unknown Organization [facility] Address [address] [facility] [place] [address] Phone [phone] Care Team Providers Care Stroke Belt Sander Operator Name Role Phone Luzma Yu MD Primary Care Provid er Reason for Visit * Reason Comments Emergency Department Follow-Up Encounter Details Date Type Department Care Team (Late st Contact Info) Description 09/29/2024 10:40 AM EDT Office Visit [facility] [address] [place] [phone] Rafat Samayoa PA-C [address] [facility] [place] [phone] Urinary tract infection without hematuria, site unspecified*; Hypotension, unspecified hypotension type; Ischemic cardiomyopathy; S/P coronary artery stent placement; ICD (implantable cardioverter-defibri llator) in place; Food insecurity Allergies Active Allergy Reactions Criticality Noted Date Comments Adhesive Tape 01/22/2001 local skin reaction Wound Dressings 05/13/2022 Other reaction(s): Skin irritation Aspirin 04/05/2021 Other reaction(s): Stomach upset Latex Hives 04/05/2021 Metformin Diarrhea High 06/03/2024 Penicillins 10/13/2003 hives documented as of this encounter (statuses as of 10/01/2024) Medications ECOTRIN LOW STRENGTH 81 MG OR [...] pain, then can use tramadol. 90 Tablet 02/26/20 3:34 PM EDT 024 Active Atorvastatin Calcium 80 MG Oral Tablet (Lipitor)Indicati ons:Dyslipidemia, goal to be determined,Ischem ic cardiomyopathy Take 1 Tablet by mouth in the morning. 90 Tablet 3 08/18/19 12:28 PM EST 024 Active Isosorbide Mononitrate ER 120 MG Oral Tablet Extended Release 24 Hour (Imdur)Indication s:Ischemic cardiomyopathy Take 1 Tablet by mouth in the morning. 90 Tablet 3 08/18/19 12:28 PM EST 024 Active Thiamine HCl 100 MG Oral Tablet (vitamin B-1)Indications:A lcohol use disorder, severe, in early remission ([facility]) TAKE 1 TABLET BY MOUTH EVERY DAY IN THE MORNING 90 Tablet 3 024 Active Nitroglycerin 0.4 MG Sublingual Tablet Sublingual (Nitrostat)Indica tions:H/O heart artery stent,Atypical chest pain Place 1 Tablet under the tongue every 5 minutes as needed for Pain, Chest. 90 Tablet 3 02/26/20 3:34 PM EDT 024 Active Gabapentin 100 MG Oral Capsule (Neurontin)Indica tions:Peripheral polyneuropathy Take 1 Capsule by mouth at bedtime. 90 Capsule 3 05/20/20 12:06 PM EST 024 Active Levothyroxine Sodium 50 MCG Oral Tablet (Levoxyl)Indicati ons:Acquired hypothyroidism Take 1 Tablet by mouth daily first thing in the morning. (at least 30 min prior to breakfast or other meds) 90 Tablet 3 08/18/19 12:28 PM EST 024 Active Entresto 49-51 MG Oral Tablet (sacubitril-valsa rtan 49-51 mg per tab)Indications:T ransient atrial fibrillation (HCC) Take 1 Tablet by mouth in the morning and 1 Tablet before bedtime. 180 Tablet 3 06/01/20 24 11:24 AM EST 024 Active Alendronate Sodium 70 MG Oral Tablet (Fosamax)Indicati ons:Age-related osteoporosis without current pathological fracture Take 1 Tablet by mouth once a week. with 8 oz. water 30 minutes before first meal of the day. Remain upright for 30 min after taking tablet. 12 Tablet 3 025 Active Magnesium Oxide 400 MG Oral Capsule Take 1 Capsule by mouth in the morning. Active levETIRAcetam 500 MG Oral Tablet (Keppra)Indicatio ns:Seizure-like activity (HCC) Take 1 Tablet by mouth in the morning and 1 Tablet before bedtime. 60 Tablet 11 025 Active Magnesium Oxide -Mg Supplement 400 (240 Mg) MG Oral Tablet (Mag-Ox)Indicatio ns:Dyslipidemia, goal to be determined TAKE 1 TABLET BY MOUTH EVERY DAY IN THE MORNING 90 Tablet 025 Active Solifenacin Succinate 10 MG Oral Tablet (VESIcare)Indicat ions:Urge incontinence of urine Take 1 Tablet by mouth in the morning. 90 Tablet 3 025 Active OneTouch Verio w/Device KitIndications:Pr ediabetes,Fall, sequela Test blood sugar as needed for weakness, fainting, up to four times a day. 1 Kit 025 Active OneTouch UltraSoft LancetsIndication s:Prediabetes,Fal l, sequela Test blood sugar as needed for weakness, fainting, up to four times a day. 100 Each 5 025 Active OneTouch Verio In Vitro Strip (Glucose Blood)Indications :Prediabetes,Fall , sequela Test blood sugar as needed for weakness, fainting, up to four times a day. 100 Strip 11 025 Active Cephalexin 500 MG Oral Capsule (Keflex) Take 1 Capsule by mouth in the morning and 1 Capsule before bedtime. Do all this for 7 days. 14 Capsule 025 2024 Active Carvedilol 6.25 MG Oral Tablet (Coreg) Take 1 Tablet by mouth in the morning and 1 Tablet before bedtime. 60 Tablet 1 Active Fluconazole 150 MG Oral Tablet (Diflucan)Indicat ions:Yeast vaginitis Take 1 tab. If in 72 hours from first dose symptoms are not resolved, please take second tab. 2 Tablet 2024 Discontinued(M edication List Clean Up) Carvedilol 12.5 MG Oral Tablet (Coreg) Take 1 Tablet by mouth in the morning and 1 Tablet before bedtime. 200 Tablet 1 025 2024 Discontinued Hospital, Clinic, or Other Facility [...] as of this encounter (statuses as of 10/01/2024) Active Problems Problem Noted Date Diagnosed Date [...] as of this encounter (statuses as of 10/01/2024) Resolved Problems Problem Noted Date Diagnosed Date [...] as of this encounter (statuses as of 10/01/2024) Immunizations Name Administration Dates Next Due COVID-19 [...] Job Start Date Job End Date [employer] Not on file Not on file Not on file documented as of this encounter Last Filed Vital Signs Vital Sign Reading Time Taken Comments Blood Pressure 80/50 09/29/2024 11:20 AM EDT Pulse 72 09/29/2024 10:35 AM EDT Temperature 36.1 °C (97 °F) 09/29/2024 10:35 AM EDT Respiratory Rate 16 09/29/2024 10:35 AM EDT Oxygen Saturation 97% 09/29/2024 10:35 AM EDT Inhaled Oxygen Concentration - - Weight 56.7 kg (125 lb) 09/29/2024 10:35 AM EDT Height 157.5 cm (5' 2") 09/29/2024 10:35 AM EDT Body Mass Index 22.86 09/29/2024 10:35 AM EDT documented in this encounter Progress Notes * Rafat Samayoa PA-C - 09/29/2024 10:39 AM EDT Images from the original note were not included. Nursing Notes: Ayleen Su LPN 09/29/24 1053 Signed The patient has been properly identified by confirmation of name and date of . Chief Complaint Patient presents with Emergency Department Follow-Up Subjective History of Present Illness Codi Painter is a 69 year old female who presents for Emergency Department follow-[facility] from [facility]. She is accompanied by a good friend (Carlotta). She experienced a recent episode of syncope, describing it as 'just passing out' without any preceding symptoms. Her was present and called for an ambulance because she was unresponsive. She was evaluated at the hospital but does not recall the details of the visit and was discharged after a few hours without a definitive diagnosis. No respiratory symptoms, chest pain, nausea, or diarrheawere noted before the unresponsive episode. Records indicate ICD was interrogated an no abnormal rhythm events were noted. She reports urinary symptoms, including a burning sensation during urination, which have been present for approximately one week. A urine culture done 09/26/24 showed bacteria (>100,000 colonies beta strep), but she has not yet started any antibiotics as she was unable to afford at the pharmacy. Friend accompanying her today reports they will go to pharmacy after today's visit and she will ensure patient gets the medication. She maintains good hydration, carrying water with her everywhere. Nofever has been reported. She has been experiencing low blood pressure for several weeks, which she occasionally monitors at home or through home health nursing visits weekly. She feels weak and tired but denies any worseningof these symptoms. She does not correlate the onset of her urinary symptoms with the low blood pressure. She is not consistently eating three meals a day due to lack of hunger as well as scarce food supplies in the home, but she has recently received a food box delivery. She has a history of back pain, which she attributes to a past back surgery. The pain is sometimes located in the area of her kidneys but is not new. She denies any new swelling. She has not taken tramadol for her back pain in about a week, as she is almost out of it and is trying to avoid it due to concerns about its effect on her blood pressure. Her current medications include Entresto and carvedilol for her heart condition, which she takes regularly. Her manages her medications. She sees a store sales manager at [facility] every three to four months. Objective BP 80/50 | Pulse 72 | Temp 97 °F (36.1 °C) | Resp 16 | Ht 5' 2" (1.575 m) | Wt 125 lb (56.7 kg) |LMP 12/22/2001 | SpO2 97% | BMI 22.86 kg/m² | BSA 1.58 m² BP Readings from Last 3 Encounters: 09/29/24 80/50 08/05/24 98/54 07/14/24 122/72 Wt Readings from Last 3 Encounters: 09/29/24 125 lb (56.7 kg) 08/05/24 125 lb 12.8 oz (57.1 kg) 07/11/24 122 lb 3.2 oz (55.4 kg) Physical Exam Vitals and nursing note reviewed. Constitutional: General: She is not in acute distress. Comments: Frail, elderly, in wheelchair. HENT: Head: Normocephalic and atraumatic. Mouth/Throat: Mouth: Mucous membranes are moist. Pharynx: Oropharynx is clear. Cardiovascular: Rate and Rhythm: Normal rate and regular rhythm. Pulmonary: Effort: Pulmonary effort is normal. Breath sounds: No wheezing, rhonchi or rales. Abdominal: General: Bowel sounds are normal. Palpations: Abdomen is soft. Tenderness: There is no abdominal tenderness. There is no right CVA tenderness, left CVA tendernessor guarding. Musculoskeletal: General: No swelling. Neurological: Mental Status: She is alert and oriented to person, place, and time. Psychiatric: Behavior: Behavior normal. Results reviewed : Urine Culture Assessment and Plan Urinary tract infection without hematuria, site unspecified Orders: cefTRIAXone (Rocephin) (350 mg/mL) inj dilution 1,000 mg Start cephalexin Rx tomorrow. Keep hydrated. Hypotension, unspecified hypotension type Orders: CBC WITH WBC DIFFERENTIAL AND ANEMIA REFLEX WORKUP; Future COMPREHENSIVE METABOLIC PANEL; Future MAGNESIUM; Future Carvedilol dose reduction from 12.5mg BID to 6.25mg BID --- patient and accompanying friend to notify of change as he helps with medications at home. Continue home BP monitoring and reporting. - Carvedilol 6.25 MG Oral Tablet (Coreg); Take 1 Tablet by mouth in the morning and 1 Tablet beforebedtime. Ischemic cardiomyopathy S/P coronary artery stent placement ICD (implantable cardioverter-defibrillator) in place Food insecurity [facility] case management arranged food box delivery. Accompanying friend aware and plans to look into food options with local resources as well. Wrap-Up Follow Up: Return for Labs Today. | For: Labs Today | Check-out note: Schedule follow-up with [facility]. 11/02/2024 as scheduled. I spent a total of 30-39 minutes (exact time 30 mins) on the date of service in preparation, delivery, and documentation of the care provided to Codi Painter excluding any time spent in the performance of separately billed services. Text in this note was generated using an [employer] documentation service. I discussed the use of a device to record and summarize our discussion today. All persons present during the encounter consented to its use. documented in this encounter Nursing Notes * Ayleen Su LPN - 09/29/2024 10:34 AM EDT The patient has been properly identified by confirmation of name and date of . Chief Complaint Patient presents with Emergency Department Follow-Up documented in this encounter Miscellaneous Notes * Assessment & Plan Note - Rafat Samayoa PA-C - 09/30/2024 6:15 PM EDT Associated Problem(s): Food insecurity [facility] case management arranged food box delivery. Accompanying friend aware and plans to look into food options with local resources as well. * Assessment & Plan Note - Rafat aSmayoa PA-C - 09/30/2024 6:15 PM EDT Associated Problem(s): Ischemic cardiomyopathy documented in this encounter Plan of Treatment Upcoming Encounters Date Type Department Care Team (Late st Contact Info) Description 10/12/2024 12:00 PM EDT Office Visit Pulmonary Medicine, [facility] [address] [place] [phone] Danyel Drummond MD [address] [facility] [place] [id number] 11/02/2024 10:40 AM EDT Office Visit [facility] [address] [facility] [place] [phone] Luzma Yu MD [address] [place] [id number] 05/02/2025 9:00 AM EDT Home Visit Care at Home [address] [place] [address] Roz Zarate PA-C [address] [place] [address] Health Maintenance Due Date Last [...] D LEVEL ONCE IN A LIFETIME-USE SMARTSET# [id number] Completed 11/03/2022, 05/09/2022 Diabetic Eye Exam Discontinued [...] ICD (implantable cardioverter-defibrillator) in place Food insecurity documented in this encounter Administered Medications Active Administered Medications - up to 3 most recent administrations Medication Order MAR Action Action Date Dose Rate Site cefTRIAXone (Rocephin) (350 mg/mL) inj dilution 1,000 mg 1,000 mg (1 g), Intramuscular, Q24H, First dose on Ivelisse 09/29/24 at 1145, Until DiscontinuedIndications :Urinary tract infection without hematuria, site unspecified Given 09/29/2024 11:21 AM EDT 1,000 mg Dorsogluteal Right documented in this encounter Care Teams Stroke Belt Sander Operator Relationship Specialty Start Date End Date Luzma Yu MD [address] [place] [id number] PCP - General Family Medicine 04/05/21 documented as of this encounter
--- OUTSIDE RECORDS SUMMARY | 2024-10-11 08:12 | External Medical Summary | Summary of Care ---
Author Name Unknown Organization [facility] Address [address] [place] [facility] [place] [facility] [place] [address] Phone [phone] Care Team Providers Care Men'S Furnishings Salesperson Name Role Phone Luzma Yu MD Primary Care Provid er Reason for Visit * Reason Comments Outpatient Testing Encounter Details Date Type Department Care Team (Late st Contact Info) Description 09/23/2024 8:50 AM EDT Laboratory [facility], [place] [facility] [address] [place] [address] [place], Laboratory [address] [place], [place] [id number] Dysuria Allergies Active Allergy Reactions Criticality Noted Date Comments Adhesive Tape 01/22/2001 local skin reaction Wound Dressings 05/13/2022 Other reaction(s): Skin irritation Aspirin 04/05/2021 Other reaction(s): Stomach upset Latex Hives 04/05/2021 Metformin Diarrhea High 06/03/2024 Penicillins 10/13/2003 hives documented as of this encounter (statuses as of 09/29/2024) Medications ECOTRIN LOW STRENGTH 81 MG OR TBECIndications:A trioventricular block, complete (HCC),Cardiac disease,Generaliz ed anxiety disorder one by mouth daily 0 0 10/18/ 004 Active Acetaminophen 500 MG Oral Tablet [...] tramadol. 90 Tablet 02/26/20 3:34 PM EDT Active Atorvastatin Calcium 80 MG Oral Tablet (Lipitor)Indicati ons:Dyslipidemia, goal to be determined,Ischem ic cardiomyopathy Take 1 Tablet by mouth in the morning. 90 Tablet 3 08/18/19 12:28 PM EST Active Isosorbide Mononitrate ER 120 [...] the morning. 90 Tablet 3 025 Active Fluconazole 150 MG Oral Tablet (Diflucan)Indicat ions:Yeast vaginitis Take 1 tab. If in 72 hours from first dose symptoms are not resolved, please take second tab. 2 Tablet 025 2024 Discontinued(M edication List Clean Up) Carvedilol [...] as of this encounter (statuses as of 09/29/2024) Active Problems Problem Noted Date Diagnosed Date [...] as of this encounter (statuses as of 09/29/2024) Resolved Problems Problem Noted Date Diagnosed Date [...] as of this encounter (statuses as of 09/29/2024) Immunizations Name Administration Dates Next Due COVID-19 [...] need food for this week? No 06/21/2024 Comments No Sex and Gender Information Value Date Recorded Sex Assigned at Not on file Legal Sex Female 7:02 AM EST Gender Identity Not on file Sexual Orientation Not on file Occupation Industry Job Start Date Job End Date [employer] Not on file Not on file Not on file documented as of this encounter Plan of Treatment Upcoming Encounters Date Type Department Care Team (Late st Contact Info) Description 10/12/2024 12:00 PM EDT Office Visit Pulmonary Medicine, [facility] [address] [place] [phone] [facility] [address] [facility] [address] 11/02/2024 10:40 AM EDT [facility] [address] [place] [phone] Luzma Yu MD [address] [place] [id number] 05/02/2025 9:00 AM EDT Home Visit Care at Home [address] [place] [address] Roz Zarate PA-C [address] [place] [address] Pending Results Name Type Priority Associated Diagnoses Date /Time URINALYSIS, REFLEX TO CULTURE (NOT FOR NEUTROPENIC PATIENTS) Lab Routine Dysuria 09/23/2024 8:56 AM EDT Scheduled Orders Name Type Priority Associated Diagnoses Orde r Schedule URINALYSIS, REFLEX TO CULTURE Lab Routine Dysuria Ordered: 09/23/2024 Health Maintenance Due Date Last Done Comments [...] D LEVEL ONCE IN A LIFETIME-USE SMARTSET# [id number] Completed 11/03/2022, 05/09/2022 Diabetic Eye Exam Discontinued [...] Procedure Name Priority Date/Time Associated Diagnosis Comments URINALYSIS, REFLEX TO CULTURE (CUP ONLY) Routine 09/23/2024 8:56 AM EDT Dysuria documented in this encounter Results * URINALYSIS, REFLEX TO CULTURE (CUP ONLY) (09/23/2024 8:56 AM EDT) Urinalysis, Reflex to Culture Specimen Specimen collected and received 09/23/2024 10:02 AM EDT [facility] [place]rine Urine specimen obtained by clean catch procedure / Unknown Non-blood Collection / Unknown 09/23/2024 8:56 AM EDT 09/23/2024 8:56 AM EDT us Luzma Yu MD LAB URINE ORDERABLES Final Result [facility] [address] [facility] [place] [address] documented in this encounter Visit Diagnoses Diagnosis Dysuria documented in this encounter Care Teams Men'S Furnishings Salesperson Relationship Specialty Start Date End Date uLzma Yu MD [address] [place] [address] [place] [id number] PCP - General Family Medicine 04/05/21 documented as of this encounter
--- OUTSIDE RECORDS SUMMARY | 2024-10-11 08:12 | External Medical Summary | Summary of Care ---
Author Name Unknown Organization [facility] Address [address] [facility] [place] [address] Phone [phone] Care Team Providers Care Legal Mediator Name Role Phone Luzma Yu MD Primary Care Provid er Reason for Visit * Reason Comments Outpatient Testing Encounter Details Date Type Department Care Team (Late st Contact Info) Description 09/29/2024 11:40 AM EDT Laboratory Laboratory, [place] [facility] [address] [place] [phone] [facility] [address] [place], [place] [id number] Encounter for long-term (current) use of medications; Type 2 diabetes mellitus with hemoglobin A1c goal of less than 7.5% ([facility]); Dyslipidemia, goal to be determined; Acquired hypothyroidism; Prediabetes; Chronic systolic heart failure (HCC); Osteoporosis without current pathological fracture, unspecified osteoporosis type; Hypotension due to hypovolemia; Hypotension, unspecified hypotension type Allergies Active Allergy Reactions Criticality Noted Date [...] 06/01/2024 11:24 AM EST 05/30/20 24 Active Alendronate [...] times a day. 100 Each 5 09/27/19 25 Active OneTouch Verio In Vitro Strip (Glucose [...] Job Start Date Job End Date [employer] Not on file Not on file Not on file documented as of this encounter Plan of Treatment Upcoming Encounters Date Type Department Care Team (Late st Contact Info) Description 10/12/2024 12:00 PM EDT Office Visit Pulmonary Medicine, [facility] [address] [place] [phone] Danyel Drummond MD [address] [place] [address] 11/02/2024 10:40 AM EDT Office Visit [facility] [address] [place] [phone] Luzma Yu MD [address] [facility] [place] [address] 05/02/2025 9:00 AM EDT Home Visit Care at Home [address] [place], [place] [phone] Roz Zarate PA-C [address] [place], [place] [phone] Pending Results Name Type Priority Associated Diagnoses Date /Time HEMOGLOBIN A1C Lab Routine Encounter for long-term (current) use of medications Type 2 diabetes mellitus with hemoglobin A1c goal of less than 7.5% (HCC) 09/29/2024 11:49 AM EDT LIPID PANEL WITH DIRECT LDL IF TG IS HIGH Lab Routine Encounter for long-term (current) use of medications 09/29/2024 11:49 AM EDT COMPREHENSIVE METABOLIC PANEL Lab Routine Dyslipidemia, goal to be determined Acquired hypothyroidism Prediabetes Chronic systolic heart failure (HCC) Osteoporosis without current pathological fracture, unspecified osteoporosis type Hypotension due to hypovolemia 09/29/2024 11:49 AM EDT TSH WITH FREE T4 IF INDICATED Lab Routine Dyslipidemia, goal to be determined Acquired hypothyroidism Prediabetes Chronic systolic heart failure (HCC) Osteoporosis without current pathological fracture, unspecified osteoporosis type Hypotension due to hypovolemia 09/29/2024 11:49 AM EDT MAGNESIUM Lab Routine Encounter for long-term (current) use of medications 09/29/2024 11:49 AM EDT CBC WITH WBC DIFFERENTIAL AND ANEMIA REFLEX WORKUP Lab Routine Hypotension, unspecified hypotension type 09/29/2024 11:49 AM EDT ANEMIA CBC Lab Routine Hypotension, unspecified hypotension type 09/29/2024 11:49 AM EDT DIFFERENTIAL, AUTOMATED Lab Routine Hypotension, unspecified hypotension type 09/29/2024 11:49 AM EDT ANEMIA REFLEX CHEMISTRY HOLD Lab Routine Hypotension, unspecified hypotension type 09/29/2024 11:49 AM EDT Health Maintenance Due Date Last [...] D LEVEL ONCE IN A LIFETIME-USE SMARTSET# [id number] Completed 11/03/2022, 05/09/2022 Diabetic Eye Exam Discontinued [...] as of this encounter Visit Diagnoses Diagnosis Encounter for long-term (current) use of medications Encounter for long-term (current) use of other medications Type 2 diabetes mellitus with hemoglobin A1c goal of less than 7.5% (HCC) Dyslipidemia, goal to be determined Other and unspecified hyperlipidemia Acquired hypothyroidism Unspecified hypothyroidism Prediabetes Other abnormal glucose Chronic systolic heart failure (HCC) Chronic systolic heart failure Osteoporosis without current pathological fracture, unspecified osteoporosis type Hypotension, unspecified hypotension type documented in this encounter Care Teams Legal Mediator Relationship Specialty Start Date End Date Luzma Yu MD [address] [place] [id number] PCP - General Family Medicine 04/05/21 documented as of this encounter
--- OUTSIDE RECORDS SUMMARY | 2024-10-11 08:12 | External Medical Summary | Summary of Care ---
Author Name Unknown Organization [facility] Address [address] [facility] [place] [address] Phone [phone] Care Team Providers Care Lorry Weigher Name Role Phone Luzma Yu MD Primary Care Provid er Encounter Details Date Type Department Care Team (Late st Contact Info) Description 09/28/2024 [facility] [address] [place] [phone] Rafat Samayoa PA-C [address] [facility] [place] [address] Allergies Active Allergy Reactions [...] Tablet before bedtime. 180 Tablet 3 06/01/20 11:24 AM EST 024 Active Alendronate Sodium [...] 7 days. 14 Capsule 025 2024 Active Fluconazole 150 MG Oral Tablet (Diflucan)Indicat [...] Job Start Date Job End Date [employer] Not on file Not on file Not on file documented as of this encounter Miscellaneous Notes * Telephone Encounter - Rafat Samayoa PA-C - 09/28/2024 12:48 PM EDT Discussed with case management. Urine culture from 09/26/24 reviewed. No sensitivities. Pharmacy Selected: [id number] [address] [facility] Medication Orders Placed This Encounter Medications Cephalexin 500 MG Oral Capsule (Keflex) Sig: Take 1 Capsule by mouth in the morning and 1 Capsule before bedtime. Do all this for 7 days. Dispense: 14 Capsule Refill: 0 Next appointment 09/29/2024 as scheduled. documented in this encounter Plan of Treatment Upcoming Encounters Date Type Department Care Team (Late st Contact Info) Description 10/12/2024 12:00 PM EDT Office Visit Pulmonary Medicine, [facility] [address] [place] [phone] Danyel Drummond MD [address] [facility] [address] 11/02/2024 10:40 AM EDT Office Visit [facility] 226 [place] [phone] Luzma Yu MD 226 [place] [address] 05/02/2025 9:00 AM EDT Home Visit Care at Home [address] [place] [address] Roz Zarate PA-C [address] [place] [address] Health Maintenance Due Date Last [...] D LEVEL ONCE IN A LIFETIME-USE SMARTSET# [id number] Completed 11/03/2022, 05/09/2022 Diabetic Eye Exam Discontinued [...] filedocumented as of this encounter Care Teams Lorry Weigher Relationship Specialty Start Date End Date Luzma Yu MD [facility] [place] [address] PCP - General Family Medicine 04/05/21 documented as of this encounter
--- OUTSIDE RECORDS SUMMARY | 2024-10-11 08:13 | External Medical Summary ---
Author Name Unknown Address Unknown Organization K01:LABORATORY [facility] [place] - [address] [place] [address] Laboratory Report Ordering Provider Test Date Status BELINDA MORAN 09/29/2024 11:49:11 Final Observation Date Value Abnormality Reference (Units ) Status Retic, % (auto) 09/29/2024 11:49:11 1.18 0.80-1.90 (%) Final Reticulocytes, Absolute 09/29/2024 11:49:11 49.3 31.3-100.1 (K/uL) Final Reticulocyte fraction, immature 09/29/2024 11:49:11 12.1 2.5-20.6 (%) Final Reticulocyte HGB 09/29/2024 11:49:11 31.8 29.7-37.4 (pg) Final Performing Location LABORATORY [facility] [place] - [address] [place] [address]
--- OUTSIDE RECORDS SUMMARY | 2024-10-11 08:13 | External Medical Summary | Summary of Care ---
Author Name Unknown Organization [facility] Address [address] [place] [address] Phone [phone] Care Team Providers Care Ice Scraper Name Role Phone Luzma Yu MD Primary Care Provid er Reason for Visit * Reason Onset Date Comments Advice 09/23/2024 Recollection of Urine Encounter Details Date Type Department Care Team (Late st Contact Info) Description 09/23/[address] [facility] [address] [facility] [place] [address] Luzma Yu MD 226 [place] [address] Advice (Recollection of Urine) Allergies Active Allergy Reactions Criticality Noted Date Comments Adhesive Tape 01/22/2001 local skin reaction Wound Dressings 05/13/2022 Other reaction(s): Skin irritation Aspirin 04/05/2021 Other reaction(s): Stomach upset Latex Hives 04/05/2021 Metformin Diarrhea High 06/03/2024 Penicillins 10/13/2003 hives documented as of this encounter (statuses as of 09/28/2024) Medications ECOTRIN LOW STRENGTH 81 MG OR [...] bedtime. 60 Tablet 11 08/05/19 25 Active Fluconazole 150 MG Oral Tablet (Diflucan)Indicati ons:Yeast vaginitis Take 1 tab. If in 72 hours from first dose symptoms are not resolved, please take second tab. 2 Tablet 08/08/19 25 Active Magnesium Oxide -Mg Supplement 400 (240 Mg) MG Oral Tablet (Mag-Ox)Indication s:Dyslipidemia, goal to be determined TAKE 1 TABLET BY MOUTH EVERY DAY IN THE MORNING 90 Tablet 08/26/19 25 Active Solifenacin Succinate 10 MG Oral Tablet (VESIcare)Indicati ons:Urge incontinence of urine Take 1 Tablet by mouth in the morning. 90 Tablet 3 08/24/19 25 Active Carvedilol 12.5 MG Oral Tablet (Coreg) Take 1 Tablet by mouth in the morning and 1 Tablet before bedtime. 200 Tablet 1 09/06/19 25 Active Hospital, Clinic, or Other Facility [...] as of this encounter (statuses as of 09/28/2024) Active Problems Problem Noted Date Diagnosed Date [...] as of this encounter (statuses as of 09/28/2024) Resolved Problems Problem Noted Date Diagnosed Date [...] as of this encounter (statuses as of 09/28/2024) Immunizations Name Administration Dates Next Due COVID-19 [...] Job Start Date Job End Date [employer] Not on file Not on file Not on file documented as of this encounter Miscellaneous Notes * Telephone Encounter - Lindsay Walters OSA - 09/28/2024 9:17 AM EDT Patient scheduled. Patient stating she Is still having symptoms. 09/28/2024 * Telephone Encounter - Luzma Yu MD - 09/26/2024 8:59 AM EDT Needs ER follow up scheduled Also please let patient's know that I'm sorry but her last urine specimen was not processeddue to lab error. If she's still having symptoms, we'll need to recollect the urine. * Telephone Encounter - Dorys Tineo LPN - 09/23/2024 4:41 PM EDT Pt is currently at [facility] ER * Telephone Encounter - Martha Paige OSA - 09/23/2024 4:16 PM EDT Lab Dept called to remind Dr. Yu that patient needs to have her Urine sample recollected due to the one submitted on today was a lab error. documented in this encounter Plan of Treatment Upcoming Encounters Date Type Department Care Team (Late st Contact Info) Description 09/29/2024 10:40 AM EDT Office Visit [facility] [place] [address] [facility] [place] [phone] Rafat Samayoa PA-C 226 [facility] [place] [phone] 10/12/2024 12:00 PM EDT Office Visit Pulmonary Medicine, [facility] [address] [place] [phone] Danyel Drummond [facility] [address] [facility] [address] 11/02/2024 10:40 AM EDT Office Visit [facility] [address]is Clay [address] [facility] [place] [phone] Luzma Yu MD 226 [facility] [place] [address] 05/02/2025 9:00 AM EDT Home Visit Care at Home [address] [facility] [place] [address] Roz Zarate PA-C [address] [facility] [place] [phone] Health Maintenance Due Date Last Done Comments [...] D LEVEL ONCE IN A LIFETIME-USE SMARTSET# [id number] Completed 11/03/2022, 05/09/2022 Diabetic Eye Exam Discontinued [...] filedocumented as of this encounter Care Teams Ice Scraper Relationship Specialty Start Date End Date Luzma Yu MD [address] [place] [address] PCP - General Family Medicine 04/05/21 documented as of this encounter
--- OUTSIDE RECORDS SUMMARY | 2024-10-11 08:13 | External Medical Summary ---
Author Name Unknown Address Unknown Organization K01:LABORATORY [facility] [place] - [address] [facility] [place] [address] Laboratory Report Ordering Provider Test Date Status MELINA COOL 09/29/2024 11:49:11 Final Observation Date Value Abnormality Reference (Units ) Status BUN 09/29/2024 11:49:11 15 6-20 (mg/dL) Final Creatinine 09/29/2024 11:49:11 1.2 Above high normal 0.5-1.0 (mg/dL) Final Glomerular filtration rate/1.73 sq M.predicted [Volume Rate/Area] in Serum, Plasma or Blood by Creatinine-based formula (CKD-EPI) 09/29/2024 11:49:11 51 Below low normal >=60 (mL/min) Final eGFR is calculated based on the CKD-EPI 2020 equation. Sodium 09/29/2024 11:49:11 139 135-146 (m mol/L) Final Potassium 09/29/2024 11:49:11 4.4 3.5-5.1 (m mol/L) Final Cl 09/29/2024 11:49:11 103 98-107 (mm ol/L) Final CO2 09/29/2024 11:49:11 25 22-32 (mmo l/L) Final Anion gap 09/29/2024 11:49:11 11 7-15 (mmol /L) Final Glucose 09/29/2024 11:49:11 135 Above high normal 70 -120 (mg/dL) Final Albumin 09/29/2024 11:49:11 3.9 3.8-5.0 (g /dL) Final AST (Aspartate aminotransferase) 09/29/2024 11:49:11 17 10-35 (U/L) Fin al Alk Phos 09/29/2024 11:49:11 80 35-130 (U/ L) Final Bilirubin, Total 09/29/2024 11:49:11 0.5 <=1 .2 (mg/dL) Final Calcium 09/29/2024 11:49:11 9.3 8.4-10.2 ( mg/dL) Final Protein 09/29/2024 11:49:11 6.4 6.0-8.3 (g /dL) Final ALT (Alanine aminotransferase) 09/29/2024 11:49:11 12 10-35 (U/L) Anish faye Performing Location LABORATORY [facility] [place] - [address] [facility] [address]
--- OUTSIDE RECORDS SUMMARY | 2024-10-11 08:13 | External Medical Summary | Summary of Care ---
Author Name Unknown Organization [facility] Address [address] [facility] [place] [address] Phone [phone] Care Team Providers Care Molding Plasterer Name Role Phone Luzma Yu MD Primary Care Provid er Encounter Details Date Type Department Care Team (Late st Contact Info) Description 09/26/2024 Result Scan Unspecified Department Luzma Yu MD [address] [place] [address] [place] [address] <No scans attached> Allergies Active Allergy Reactions [...] bedtime. 200 Tablet 1 09/06/19 25 Active [employer] Verio w/Device KitIndications:Pre diabetes,Fall, sequela Test blood sugar as needed for weakness, fainting, up to four times a day. 1 Kit 09/27/19 25 Active [employer] UltraSoft LancetsIndications :Prediabetes,Fall, sequela Test blood sugar as needed for weakness, fainting, up to four times a day. 100 Each 5 09/27/19 Active [employer] Verio In Vitro Strip (Glucose Blood)Indications: Prediabetes,Fall, sequela Test blood sugar as needed for weakness, fainting, up to four times a day. 100 Strip 09/27/19 Active Hospital, Clinic, or Other Facility Administered [...] Job Start Date Job End Date [employer] Not on file Not on file Not on file documented as of this encounter Plan of Treatment Upcoming Encounters Date Type Department Care Team (Late st Contact Info) Description 09/29/2024 10:40 AM EDT Office Visit Family [facility] Reg[place] [address] [place] [phone] Rafat Samayoa PA-C [address] [place] [address] 10/12/2024 12:00 PM EDT Office Visit Pulmonary Medicine, [facility] [address] [place] [phone] Danyel Drummond MD [address] [facility] [place] [address] 11/02/2024 10:40 AM EDT Office Visit [facility] Regis Clay [address] [place] [phone] Luzma Yu MD [address] [place] [address] 05/02/2025 9:00 AM EDT Home Visit Care at Home [address] [place] [address] Roz Zarate PA-C [address] [place] [address] Health Maintenance Due Date Last Done Comments Cologuard 1998 Colonoscopy 1998 Fecal Occult Blood Test 1998 Sigmoidoscopy 1998 COVID-19 Vaccine ( season) 2024 11/06/2020, 09/27/2020 Influenza Vaccine (FLU shot) (#1) 2024 05/18/2023, 05/09/2022 GFR 04/01/2025 04/01/2024, 120 10/2022, 03/21/2023, Additional history exists HbA1c 04/01/2025 [...] D LEVEL ONCE IN A LIFETIME-USE SMARTSET# [id number] Completed 11/03/2022, 05/09/2022 Diabetic Eye Exam Discontinued [...] Procedure Name Priority Date/Time Associated Diagnosis Comments OUTSIDE LAB RESULTS 09/26/2024 documented in this encounter Results * OUTSIDE LAB RESULTS (09/26/2024) 09/26/2024 us Luzma Yu MD LABORATORY [facility] Result documented in this encounter Care Teams Molding Plasterer Relationship Specialty Start Date End Date Luzma Yu MD [address] [facility] [place] [address] PCP - General Family Medicine 04/05/21 documented as of this encounter
--- OUTSIDE RECORDS SUMMARY | 2024-10-11 08:13 | External Medical Summary ---
Author Name Unknown Address Unknown Organization K01:LABORATORY [facility] [place] - [address] [facility] [place] [address] Laboratory Report Ordering Provider Test Date Status EDGAR COOLO 09/29/2024 11:49:11 Final Observation Date Value Abnormality Reference (Units ) Status Triglyceride 09/29/2024 11:49:11 179 Above high normal <=174 (mg/dL) Final Triglyceride Reference Range s (mg/dL):
<150 Acceptable
150-174 Borderline high
175-499 High
>=500 Very high Cholesterol 09/29/2024 11:49:11 149 <200 (mg /dL) Final Total Cholesterol Reference Ranges (mg/dL):
<200 Desirable
200-239 Borderline high
>=240 High HDL 09/29/2024 11:49:11 34 Below low normal >49 (mg/dL) Final HDL Cholesterol Reference Ra nges (mg/dL):
>=60 High (Desirable)
<50 Low (Undesirable) For Females
<40 Low (Undesirable) For Males NON-HDL CHOLESTEROL 09/29/2024 11:49:11 115 <=159 (mg/dL) Final Non-HDL Cholesterol Referenc e Range (mg/dL):
<100 Target level for high risk ASCVD patient
<130 Optimal for general population
130-159 Near optimal for general population
160-189 Borderline High
190-219 High
>=220 Very High LDL, (calculated) 09/29/2024 11:49:11 79 <= 129 (mg/dL) Final LDL Cholesterol Reference Ra nges (mg/dL):
<70 Target level for high risk ASCVD patient
<100 Optimal for general population
100-129 Near optimal for general population
130-159 Borderline high
160-189 High
>=190 Very high
Patient has high LDL cholesterol. Consider screening for Familial Hypercholesterolemia. Performing Location LABORATORY [facility] [place] - [address] [facility] [address]
--- OUTSIDE RECORDS SUMMARY | 2024-10-11 08:13 | External Medical Summary ---
Author Name Unknown Address Unknown Organization K01:LABORATORY [facility] [place] - [address] [place] [address] Laboratory Report Ordering Provider Test Date Status BELINDA MORAN 09/29/2024 11:49:11 Final Observation Date Value Abnormality Reference (Units ) Status Ferritin 09/29/2024 11:49:11 124 13-150 (ng /mL) Final Postmenopausal women have hi gher ferritin levels than pre-menopausal women. The above reference interval is based on pre-menopausal women. Performing Location LABORATORY [facility] - [address] [place] [address]
--- OUTSIDE RECORDS SUMMARY | 2024-10-11 08:13 | External Medical Summary ---
Author Name Unknown Address Unknown Organization K01:LABORATORY [facility] [place] - [address] [facility] [place] [address] Laboratory Report Ordering Provider Test Date Status BELINDA MORAN 09/29/2024 11:49:11 Final Observation Date Value Abnormality Reference (Units ) Status SYNC LEUKOCYTES IN BLOOD BY AUTOMATED COUNT 09/29/2024 11:49:11 8.52 4.00-10.80 (K/uL) Final Segs 09/29/2024 11:49:11 79.8 Above high normal 40.0-75.0 (%) Final Lymphs % 09/29/2024 11:49:11 12.6 Below low normal 18.0-42.0 (%) Final Monos 09/29/2024 11:49:11 4.8 1.0-11.0 (%) Final Eosinophils 09/29/2024 11:49:11 1.8 0.0-6.0 (%) Final Basos 09/29/2024 11:49:11 0.5 0.0-2.0 (%) Final Immature Granulocyte, Percent 09/29/2024 11:49:11 0.5 0.0-2.0 (%) Final Absolute Segs 09/29/2024 11:49:11 6.81 1.80-7.70 (K/uL) Final Lymphs, absolute 09/29/2024 11:49:11 1.07 1.00-4.80 (K/ul) Final Monos, Abs 09/29/2024 11:49:11 0.41 0.00-1.10 (K/uL) Final Eos, Abs 09/29/2024 11:49:11 0.15 0.00-0.70 (K/uL) Final Basos, Abs 09/29/2024 11:49:11 0.04 0.00-0.20 (K/uL) Final Immature Granulocytes, Number 09/29/2024 11:49:11 0.04 0.00-0.20 (K/uL) Final Performing Location LABORATORY [facility] [place] - [facility] [place] [address]
--- OUTSIDE RECORDS SUMMARY | 2024-10-11 08:13 | External Medical Summary ---
Author Name Unknown Address Unknown Organization K01:LABORATORY [facility] [place] - [address] [facility] [address] [facility] [address] Laboratory Report Ordering Provider Test Date Status TRAVONMELINA 09/29/2024 11:49:11 Final Observation Date Value Abnormality Reference (Units ) Status HbA1C 09/29/2024 11:49:11 6.6 Above high normal 4. 0-5.6 (%) Final The use of HbA1c to monitor glycemic status is based on normal hemoglobin and HbA composition. This test should not be used in patients with abnormal hemoglobin that affects the half life of the red blood cell or the in vivo glycation rates. Glucose, estimated average 09/29/2024 11:49:11 143 Above high normal <126 (mg/dL) Anish faye Performing Location LABORATORY [facility] [place] - [address] [facility] [address]
--- OUTSIDE RECORDS SUMMARY | 2024-10-11 08:13 | External Medical Summary | Summary of Care ---
Author Name Unknown Organization [facility] Address [address] [place] [address] Phone [phone] Care Team Providers Care Urgent Care Physician Assistant Name Role Phone Luzma Yu MD Primary Care Provid er Reason for Visit * Reason Onset Date Comments Advice 09/23/2024 Recollection of Urine Encounter Details Date Type Department Care Team (Late st Contact Info) Description 09/23/2024 Telephone [facility] [address] [facility] [place] [phone] Luzma Yu MD 226 [facility] [place] [address] Advice (Recollection of Urine) Allergies Active [...] Job Start Date Job End Date [employer] Not on file Not on file Not [...] 4:41 PM EDT Pt is currently at [facility] * Telephone Encounter - Martha Paige [...] Description 09/29/2024 10:40 AM EDT Office Visit [facility] [place] [address] [facility] [place] [phone] Rafat Samayoa PA-C [address] [facility] [place] [phone] 10/12/2024 12:00 PM EDT Office Visit Pulmonary Medicine, [facility] [address] [place] [phone] Danyel Drummond MD [address] [facility] [address] 11/02/2024 10:40 AM EDT Office Visit [facility] Regis Clay [address] [facility] [place] [phone] Luzma Yu MD [address] [facility] [place] [address] 05/02/2025 9:00 AM EDT Home Visit Care at Home [address] [facility] [place] [address] Roz Zarate PA-C [address] [facility] [place] [phone] Health Maintenance Due Date Last Done Comments [...] D LEVEL ONCE IN A LIFETIME-USE SMARTSET# [id number] Completed 11/03/2022, 05/09/2022 Diabetic Eye Exam Discontinued [...] filedocumented as of this encounter Care Teams Urgent Care Physician Assistant Relationship Specialty Start Date End Date Luzma Yu MD [address] [place] [address] PCP - General Family Medicine 04/05/21 documented as of this encounter
--- OUTSIDE RECORDS SUMMARY | 2024-10-11 08:13 | External Medical Summary ---
Author Name Unknown Address Unknown Organization K01:LABORATORY [facility] [place] - [address] [place] [address] Laboratory Report Ordering Provider Test Date Status EDGAR OCOLO 09/29/2024 11:49:11 Final Observation Date Value Abnormality Reference (Units ) Status TSH 09/29/2024 11:49:11 0.57 0.27-4.20 (uIU/mL) Final Performing Location LABORATORY [facility] [place] - [address] [facility] [address]
--- OUTSIDE RECORDS SUMMARY | 2024-10-11 08:13 | External Medical Summary ---
Author Name Unknown Address Unknown Organization K01:[place] [place] [address] [place] [address] [place] [address] Laboratory Report Ordering Provider Test Date Status BELINDA MORAN 09/29/2024 11:49:11 Final Observation Date Value Abnormality Reference (Units ) Status WBC, Total 09/29/2024 11:49:11 8.52 4.00-10.8 0 (K/uL) Final RBC 09/29/2024 11:49:11 4.01 3.85-5.15 (M/uL) Final Hemoglobin 09/29/2024 11:49:11 11.4 Below low normal 12 .0-15.3 (g/dL) Final Anemia reflex testing trigge rs on a HGB < 12.0 for Females and HGB < 13.0 for Males in accordance with the WHO Anemia Guidelines
Anemia reflex testing triggers on a HGB < 12.0 for Females and HGB < 13.0 for Males in accordance with the WHO Anemia Guidelines HCT 09/29/2024 11:49:11 36.7 36.0-45.2 (%) Final MCV 09/29/2024 11:49:11 91.5 81.5-97.5 (fL) Final MCH 09/29/2024 11:49:11 28.4 27.0-34.0 (pg) Final MCHC 09/29/2024 11:49:11 31.1 32.0-36.0 (g/dL) Final RDW 09/29/2024 11:49:11 13.5 11.5-15.5 (%) Final Platelets 09/29/2024 11:49:11 173 140-400 (K /uL) Final MPV 09/29/2024 11:49:11 11.2 6.6-11.1 ( fL) Final Nucleated erythrocytes/100 leukocytes [Ratio] in Blood by Automated count 09/29/2024 11:49:11 0 <=0 (/100 WBCs) Critical access hospital Performing Location [facility] [place] [address] [facility] [address]
--- OUTSIDE RECORDS SUMMARY | 2024-10-11 08:13 | External Medical Summary ---
Author Name Unknown Address Unknown Organization K01:LABORATORY [facility] [place] - [address] [place] [address] Laboratory Report Ordering Provider Test Date Status BELINDA MORAN 09/29/2024 11:49:11 Final Observation Date Value Abnormality Reference (Units ) Status Iron 09/29/2024 11:49:11 40 33-151 (ug/dL) Final Iron-binding capacity 09/29/2024 11:49:11 237 Below low normal 250-425 (ug/dL) Final Transferrin Sat % 09/29/2024 11:49:11 17 15-55 (%) Final Performing Location LABORATORY [facility] [place] - [address] [place] [address]
--- OUTSIDE RECORDS SUMMARY | 2024-10-11 08:13 | External Medical Summary ---
Author Name Unknown Address Unknown Organization K01:LABORATORY [facility] - [address] [place] [address] Laboratory Report Ordering Provider Test Date Status ROBERTO CERVANTES 09/29/2024 11:49:11 Final Observation Date Value Abnormality Reference (Units ) Status Magnesium 09/29/2024 11:49:11 1.8 1.5-2.6 (m g/dL) Final Performing Location LABORATORY [facility] - [address] [place] [address]
--- OUTSIDE RECORDS SUMMARY | 2024-10-11 08:13 | External Medical Summary ---
Author Name Unknown Address Unknown Organization K01:LABORATORY [facility] [place] - [address] [place] [address] Laboratory Report Ordering Provider Test Date Status BELINDA MORAN 09/29/2024 11:49:11 Final Observation Date Value Abnormality Reference (Units ) Status Folic Acid 09/29/2024 11:49:11 5.9 >4.5 (ng/ mL) Final Performing Location LABORATORY [facility] - [address] [place] [address]
--- OUTSIDE RECORDS SUMMARY | 2024-10-11 08:13 | External Medical Summary ---
Author Name Unknown Address Unknown Organization K01:LABORATORY [facility] [place] - [address] [place] [address] Laboratory Report Ordering Provider Test Date Status BELINDA MORAN 09/29/2024 11:49:11 Final Observation Date Value Abnormality Reference (Units ) Status Vitamin B12 09/29/2024 11:49:11 731 445-4934 (pg/mL) Final Performing Location LABORATORY [facility] - [address] [place] [address]
--- OUTSIDE RECORDS SUMMARY | 2024-10-11 08:13 | External Medical Summary | Summary of Care ---
Author Name Unknown Organization [facility] Address [address] [place] [address] Phone [phone] Care Team Providers Care Lumber Driver Name Role Phone Luzma Yu MD Primary Care Provid er Encounter Details Date Type Department Care Team (Late st Contact Info) Description 09/26/2024 2:30 PM EDT Home Visit [facility] Coordination [facility] Integration [address] [place], [place] [phone] Kelly Meraz Community Health Autistic Teacher [address] [place] [address] Allergies Active Allergy Reactions Criticality Noted Date Comments Adhesive Tape 01/22/2001 local skin reaction Wound Dressings 05/13/2022 Other reaction(s): Skin irritation Aspirin 04/05/2021 Other reaction(s): Stomach upset Latex Hives 04/05/2021 Metformin Diarrhea High 06/03/2024 Penicillins 10/13/2003 hives documented as of this encounter (statuses as of 09/27/2024) Medications ECOTRIN LOW STRENGTH 81 MG OR [...] as of this encounter (statuses as of 09/27/2024) Active Problems Problem Noted Date Diagnosed Date [...] as of this encounter (statuses as of 09/27/2024) Resolved Problems Problem Noted Date Diagnosed Date [...] as of this encounter (statuses as of 09/27/2024) Immunizations Name Administration Dates Next Due COVID-19 [...] Job Start Date Job End Date [employer] Not on file Not on file Not on file documented as of this encounter Progress Notes * Kelly Meraz, Community Health Autistic Teacher - 09/27/2024 11:26 AM EDT Telemedicine visit: No Community Health Autistic Teacher ([facility]) documentation: CHW received a TT stating pt was in need of an emergency food box today. CHW contacted the food bank in [place], [place] to see if they could provide a food box for this pt. CHW met with Darryl Sánchez of the [facility] food bank and he provided CHW with numerous boxes of food for pt, including 2 dozen eggs, frozen and canned meats, canned vegetable and canned fruit. Also included were noodles, mac and cheese and numerous other items. CHW purchased a gallon of milk and loaf of bread for pt. Pt stated her gratitude. CHW is familiar with this couple. Has been in this home numerous times in the last few months. CHW had previously assisted with applying for assistance and [employer]. Pt and her spouse were provided with resource book for [facility]. Pt's spouse is unable to drive at this point due to vision issues. He is scheduled for surgery tomorrow to hopefully help with this problem. They are depending on a nephew to provide them with rides to appointments etc. They do have the number for [facility], but have opted not to go that route at this point. Pt and her spouse should have enough food to last for several weeks at this point. documented in this encounter Plan of Treatment Upcoming Encounters Date Type Department Care Team (Late st Contact Info) Description 10/12/2024 12:00 PM EDT Office Visit Pulmonary Medicine, [facility] [address] [place] [phone] Danyel Drummond MD [address] [place] [address] 11/02/2024 10:40 AM EDT Office Visit Family [facility], [facility] [address] [facility] [place] [address] Luzma Yu MD [address] [facility] [place] [address] 05/02/2025 9:00 AM EDT Home Visit Care at Home [address] [place], [place] [phone] Roz Zarate PA-C [address] [place] [address] Health Maintenance Due Date Last Done Comments Cologuard 1998 Colonoscopy 1998 Fecal Occult Blood Test 1998 Sigmoidoscopy 1998 COVID-19 Vaccine ( season) 2024 11/06/2020, 09/27/2020 Influenza Vaccine (FLU shot) (#1) 2024 05/18/2023, 05/09/2022 GFR 04/01/2025 04/01/2024, 10/2022, 03/21/2023, Additional history exists HbA1c 04/01/2025 04/01/2024, 0 10/2022, 11/03/2022, Additional history exists TSH 04/01/2025 04/01/2024, 10/2022, 11/03/2022, Additional history exists Adult Wellness Visit 05/03/2025 05/03/2024 Depression Monitoring 05/03/2025 05/03/2024 Albumin/Creatinine Ratio 05/20/2025 05/20/2022 Mammogram 07/14/2025 07/14/2024, 03/2025, 11/24/2022, Additional history exists DXA Scan 07/27/2025 07/27/2023, 07/27/2023 DTap/Tdap Vaccines (2 - Td or Tdap) 10/31/2032 10/31/2022 Pneumococcal Vaccine: 50+ Years Completed 05/09/2022 VITAMIN D LEVEL ONCE IN A LIFETIME-USE SMARTSET# [id number] Completed 11/03/2022, 05/09/2022 Diabetic Eye Exam Discontinued [...] filedocumented as of this encounter Care Teams Lumber Driver Relationship Specialty Start Date End Date Luzma Yu MD [address] [place] [address] PCP - General Family Medicine 04/05/21 documented as of this encounter
--- OUTSIDE RECORDS SUMMARY | 2024-10-11 08:14 | External Medical Summary | Summary of Care ---
Author Name Unknown Organization [facility] Address [address] [place] [address] Phone [phone] Care Team Providers Care Emergency Veterinarian Name Role Phone Luzma Yu MD Primary Care Provid er Reason for Visit * Reason Onset Date Comments Advice 09/23/2024 Recollection of Urine Encounter Details Date Type Department Care Team (Late st Contact Info) Description 09/23/[address] [facility] [address] [facility] [place] [address] Luzma Yu MD [address] [place] [address] Advice (Recollection of Urine) Allergies Active Allergy Reactions Criticality Noted Date Comments Adhesive Tape 01/22/2001 local skin reaction Wound Dressings 05/13/2022 Other reaction(s): Skin irritation Aspirin 04/05/2021 Other reaction(s): Stomach upset Latex Hives 04/05/2021 Metformin Diarrhea High 06/03/2024 Penicillins 10/13/2003 hives documented as of this encounter (statuses as of 09/24/2024) Medications ECOTRIN LOW STRENGTH 81 MG OR [...] as of this encounter (statuses as of 09/24/2024) Active Problems Problem Noted Date Diagnosed Date [...] as of this encounter (statuses as of 09/24/2024) Resolved Problems Problem Noted Date Diagnosed Date [...] as of this encounter (statuses as of 09/24/2024) Immunizations Name Administration Dates Next Due COVID-19 [...] Job Start Date Job End Date [employer] Not on file Not on file Not on file documented as of this encounter Miscellaneous Notes * Telephone Encounter - Dorys Tineo LPN - 09/23/2024 4:41 PM EDT Pt is currently at [facility] * Telephone Encounter - Martha Paige [...] 12:00 PM EDT Office Visit Pulmonary Medicine, [facility] [address] [place] [phone] Danyel Drummond MD [address] [facility] [place] [address] 11/02/2024 10:40 AM EDT Office Visit [facility] [place] [facility] [address] [place] [address] Luzma Yu MD [address] [place] [address] 05/02/2025 9:00 AM EDT Home Visit Care at Home [address] [place] [address] Roz Zarate PA-C [address] [place] [address] Health Maintenance Due Date Last Done Comments Cologuard 1998 Colonoscopy 1998 Fecal Occult Blood Test 1998 Sigmoidoscopy 1998 COVID-19 Vaccine ( season) 2024 11/06/2020, 09/27/2020 Influenza Vaccine (FLU shot) (#1) 2024 05/18/2023, 05/09/2022 GFR 04/01/2025 04/01/2024, 1210/2022, 03/21/2023, Additional history exists HbA1c 04/01/2025 04/01/2024, [...] D LEVEL ONCE IN A LIFETIME-USE SMARTSET# [id number] Completed 11/03/2022, 05/09/2022 Diabetic Eye Exam Discontinued [...] filedocumented as of this encounter Care Teams Emergency Veterinarian Relationship Specialty Start Date End Date Luzma Yu MD [address] [facility] [place] [address] PCP - General Family Medicine 04/05/21 documented as of this encounter
--- OUTSIDE RECORDS SUMMARY | 2024-10-11 08:14 | External Medical Summary | Summary of Care ---
Author Name Unknown Organization [facility] Address [address] [place] [address] Phone [phone] Care Team Providers Care Tool And Die Engineer Name Role Phone Luzma Yu MD Primary Care Provid er Reason for Visit * Reason Onset Date Comments Advice 09/23/2024 Recollection of Urine Encounter Details Date Type Department Care Team (Late st Contact Info) Description 09/23/2024 Telephone [facility][Note 3] [address] [place] [address] Luzma Yu MD [address] [place] [address] Advice (Recollection of Urine) Allergies Active [...] Job Start Date Job End Date [employer] Not on file Not on file Not [...] 4:41 PM EDT Pt is currently at [facility] * Telephone Encounter - Martha [...] 12:00 PM EDT Office Visit Pulmonary Medicine, [facility] [address] [place] [phone] Danyel Drummond MD [address] [place] [address] 11/02/2024 10:40 AM EDT Office Visit Family Practice, [facility] [phone] Luzma Yu MD [address] [facility] [place] [address] 05/02/2025 9:00 AM EDT Home Visit Care at Home [address] [place], [place] [phone] Roz Zarate PA-C [address] [place], [place] [phone] Health Maintenance Due Date Last Done Comments [...] D LEVEL ONCE IN A LIFETIME-USE SMARTSET# [id number] Completed 11/03/2022, 05/09/2022 Diabetic Eye Exam Discontinued [...] filedocumented as of this encounter Care Teams Tool And Die Engineer Relationship Specialty Start Date End Date Luzma Yu MD [address] [place] [address] PCP - General Family Medicine 04/05/21 documented as of this encounter
--- OUTSIDE RECORDS SUMMARY | 2024-10-11 08:14 | External Medical Summary | Summary of Care ---
Author Name Unknown Organization [facility] Address [address] [facility] [address] Phone [phone] Care Team Providers Care Assistant Designer Name Role Phone Luzma Yu MD Primary Care Provid er Reason for Visit * Reason Onset Date Comments Home Health 09/26/2024 Encounter Details Date Type Department Care Team (Late st Contact Info) Description 09/26/[address] [facility] [address] [facility] [place] [phone] Luzma Yu MD [address] [facility] [place] [address] Home Health Allergies Active Allergy Reactions [...] bedtime. 200 Tablet 1 09/06/19 25 Active OneTouch Verio w/Device KitIndications:Pre diabetes,Fall, [...] times a day. 100 Strip 11 09/27/19 Active Hospital, Clinic, or Other Facility [...] Job Start Date Job End Date [employer] Not on file Not on file Not on file documented as of this encounter Miscellaneous Notes * Telephone Encounter - Luzma Yu MD - 09/26/2024 5:27 PM EDT Patient is prediabetic, suspect blood sugar will be normal. Testing supplies sent. * Telephone Encounter - Jazlyn Vigil LPN - 09/26/2024 10:27 AM EDT Concerns Jovanna PT, Calling from: [facility] Report/Concerns of: Emergency Room Visit Symptoms: See Below Vitals: T 99.1 P 97 RR BP 112/60 SP O2 96% RA Weight 122.5 lb Narrative: Patient was transported to [facility] on 09/23-- found her unresponsive, 911 advised him to start compressions, unsure if he started them, paramedics arrived and she was awake and very pale. Hospital did not find anything wrong and sent her home. Patient reported that she has nothing to monitor her BS levels--does not monitor BS at all. Call back patient with any advice or recommendations [facility] * Telephone Encounter - Ute Nova OSA - 09/26/2024 10:24 AM EDT Reason for patient's call: Jovanna from [facility] calling with update on pt. Asked to speak with a nurse. Caller was transferred to Jazlyn at the nurse line. documented in this encounter Plan of Treatment Upcoming Encounters Date Type Department Care Team (Late st Contact Info) Description 10/12/2024 12:00 PM EDT Office Visit Pulmonary Medicine, [facility] [address] [place] [phone] Danyel Drummond MD [address] [facility] [address] 11/02/2024 10:40 AM EDT Office Visit [facility] Regis Clay [address] [place] [phone] Luzma Yu MD 226 [facility] [place] [address] 05/02/2025 9:00 AM EDT Home Visit Care at Home [address] [facility] [phone] Roz Zarate PA-C [address] [place], [place] [phone] Health Maintenance Due Date Last Done Comments [...] D LEVEL ONCE IN A LIFETIME-USE SMARTSET# [id number] Completed 11/03/2022, 05/09/2022 Diabetic Eye Exam Discontinued [...] as of this encounter Visit Diagnoses Diagnosis Prediabetes- Primary Other abnormal glucose Fall, sequela documented in this encounter Care Teams Assistant Designer Relationship Specialty Start Date End Date Luzma Yu MD [address] [facility] [place] [address] PCP - General Family Medicine 04/05/21 documented as of this encounter
--- OUTSIDE RECORDS SUMMARY | 2024-10-11 08:14 | External Medical Summary | Summary of Care ---
Author Name Unknown Organization [facility] Address [address] [place] [address] Phone [phone] Care Team Providers Care Assurance Analyst Name Role Phone Luzma Yu MD Primary Care Provid er Reason for Visit * Reason Comments Outpatient Testing Encounter Details Date Type Department Care Team (Late st Contact Info) Description 09/23/2024 8:50 AM EDT Laboratory [facility], [place] [facility] [address] [place] [address] [place] Laboratory [address] [place], [place] [phone] Dysuria Allergies Active Allergy Reactions Criticality Noted [...] 3 08/18/2024 12:28 PM EST 02/26/20 Active Isosorbide Mononitrate ER [...] Job Start Date Job End Date [employer] Not on file Not on file Not on file documented as of this encounter Plan of Treatment Upcoming Encounters Date Type Department Care Team (Late st Contact Info) Description 10/12/2024 12:00 PM EDT Office Visit Pulmonary Medicine, [facility] [address] [place] [phone] Danyel Drummond MD [address] [facility] [address] 11/02/2024 10:40 AM EDT Office Visit [facility] [address] [facility] [phone] Luzma Yu MD [address] [facility] [place] [address] 05/02/2025 9:00 AM EDT Home Visit Care at Home [address] [facility] [place] [address] Roz Zaarte PA-C [address] [facility] [phone] Pending Results Name Type Priority Associated Diagnoses [...] D LEVEL ONCE IN A LIFETIME-USE SMARTSET# [id number] Completed 11/03/2022, 05/09/2022 Diabetic Eye Exam Discontinued [...] and received 09/23/2024 10:02 AM EDT LAB[facility]ORY [facility] Urine Urine specimen obtained by clean catch procedure / Unknown Non-blood Collection / Unknown 09/23/2024 8:56 AM EDT 09/23/2024 8:56 AM EDT us Luzma Yu MD LAB URINE ORDERABLES Final Result [facility] [address] [facility] [address] documented in this encounter Visit Diagnoses Diagnosis Dysuria documented in this encounter Care Teams Assurance Analyst Relationship Specialty Start Date End Date Luzma Yu MD [address] [facility] [place] [address] PCP - General Family Medicine 04/05/21 documented as of this encounter
--- OUTSIDE RECORDS SUMMARY | 2024-10-11 08:14 | External Medical Summary | Summary of Care ---
Author Name Unknown Organization [facility] Address [address] [place] [address] Phone [phone] Care Team Providers Care Airways Operations Specialist Name Role Phone Luzma Yu MD Primary Care Provid er Reason for Visit * Reason Onset Date Comments Advice 09/23/2024 Recollection of Urine Encounter Details Date Type Department Care Team (Late st Contact Info) Description 09/23/2024 Telephone [facility] [address] [place] [address] Luzma Yu MD [address] [facility] [address] Advice (Recollection of Urine) Allergies Active Allergy Reactions Criticality Noted Date Comments Adhesive Tape 01/22/2001 local skin reaction Wound Dressings 05/13/2022 Other reaction(s): Skin irritation Aspirin 04/05/2021 Other reaction(s): Stomach upset Latex Hives 04/05/2021 Metformin Diarrhea High 06/03/2024 Penicillins 10/13/2003 hives documented as of this encounter (statuses as of 09/26/2024) Medications ECOTRIN LOW STRENGTH 81 MG OR [...] as of this encounter (statuses as of 09/26/2024) Active Problems Problem Noted Date Diagnosed Date [...] as of this encounter (statuses as of 09/26/2024) Resolved Problems Problem Noted Date Diagnosed Date [...] as of this encounter (statuses as of 09/26/2024) Immunizations Name Administration Dates Next Due COVID-19 [...] Start Date Job End Date [employer] Not on file Not on file Not [...] 4:41 PM EDT Pt is currently at [facility] * Telephone Encounter - Martha [...] 12:00 PM EDT Office Visit Pulmonary Medicine, [facility] [address] [place] [phone] Danyel Drummond MD [address] [place] [address] 11/02/2024 10:40 AM EDT Office Visit Family Practice, [facility] [address] [facility] [phone] Luzma Yu MD [address] [facility] [place] [address] 05/02/2025 9:00 AM EDT Home Visit Care at Home [address] [place], [place] [phone] Roz Zarate PA-C [address] [place], [place] [phone] Health Maintenance Due Date Last Done Comments [...] D LEVEL ONCE IN A LIFETIME-USE SMARTSET# [id number] Completed 11/03/2022, 05/09/2022 Diabetic Eye Exam Discontinued [...] filedocumented as of this encounter Care Teams Airways Operations Specialist Relationship Specialty Start Date End Date Luzma Yu MD [address] [place] [address] PCP - General Family Medicine 04/05/21 documented as of this encounter
[2024-10-11 08:27] LABS: Partial Thromboplastin Ratio 0.9; Partial Thromboplastin Time 24 Seconds (21-31)
[2024-10-11] MEDS ORDERED: CARBOHYDRATES FOR HYPOGLYCEMIA PO PRN (08:28)
[2024-10-11] MEDS ORDERED: GLUCOSE 40% GEL 15 GM TUBE PO PRN (08:28)
[2024-10-11] MEDS ORDERED: GLUCAGON FOR INJ 1 MG VIAL SQ PRN (08:28)
[2024-10-11] MEDS ORDERED: GLUCOSE 10 TAB/TUBE PO PRN (08:28)
[2024-10-11] MEDS ORDERED: DEXTROSE 50% 50 ML SYRINGE IV PRN (08:28)
[2024-10-11] MEDS ORDERED: LORazepam 2 MG/1 ML VIAL IV PRN (08:39)
[2024-10-11 08:49] LABS: Chol HDL Ratio 4.3 (0-5); Magnesium 1.8 mg/dl (1.7-2.4)
[2024-10-11 08:56] LABS: Troponin I High Sensitivity 39.2 pg/ml (0-14)
[2024-10-11] MEDS ORDERED: THIAMINE HCL 100 MG TAB PO SCH (09:00)
[2024-10-11] MEDS ORDERED: carvediloL 3.125 MG TAB PO SCH (09:00)
[2024-10-11] MEDS: ATORVASTATIN 40 MG TAB PO SCH (09:16)
[2024-10-11] MEDS: ENOXAPARIN INJ 30 MG/0.3 ML SYR SQ SCH (09:16)
[2024-10-11] MEDS: VALSARTAN/SACUBITRIL 51/49 MG TAB PO SCH (09:17)
[2024-10-11] MEDS: OXYBUTYNIN CHLORIDE XL 5 MG TABCR PO SCH (09:17)
[2024-10-11] MEDS: carvediloL 6.25 MG TAB PO SCH (09:17)
[2024-10-11] MEDS: levETIRAcetam 500 MG TAB PO SCH (09:17)
[2024-10-11] MEDS: ISOSORBIDE MONONITRATE 120 MG PO SCH (09:18)
[2024-10-11] MEDS: INSULIN ASPART PER UNIT CHARGE SC SCH (09:18)
--- NOTE | 2024-10-11 12:09 | Cardiology Consultation ---
Date of Consultation October 11, 2024 Assessment & Plan (1) Coronary artery disease: (2) S/P coronary artery stent placement: (3) Elevated troponin: (4) Cardiomyopathy: (5) ICD (implantable cardioverter-defibrillator), biventricular, in situ: (6) Chest pain: Plan ASSESSMENT/PLAN: 1. CAD s/p LAD and RCA PCI: Her history is a bit inconsistent between providers. Chest discomfort that she reported to me lasting for many hours with a troponin up to 39. Repeat troponin now (personally ordered). If troponin remains low level, may pursue myocardial perfusion study tomorrow (no caffeine in anticipation). If troponin becomes more significantly elevated, would consider coronary angiography with potential PCI of RCA and/or circumflex if LAD remains free from significant CAD. No current angina. Continue aspirin 81 mg daily. Multiple PCI with overlapping stents, would recommend Plavix 75 mg daily for a longer course as originally recommended by interventional cardiology in March 2024. Plavix has not been on her medication list for a few months for unclear reason. Continue beta-jus as tolerated. Continue high intensity statin therapy. 2. Chest pain: Concerning for angina but apparently many hours in duration with minimal troponin elevation. Myocardial perfusion study as above. Adjust antianginal by increasing nitrate therapy. Considered increasing carvedilol but apparently was hypotensive in the outpatient setting in September 2024 with her PCP with systolic blood pressure in the 80s at which point carvedilol was reduced. 3. Ischemic cardiomyopathy: LV systolic function has improved after most recent PCI of LAD. She appears euvolemic. Continue ARNI and beta-jus. Has followed in the heart failure program. NYHA class I per patient history. 4. Biventricular ICD: Follows with electrophysiology. Reportedly interrogated within the past couple of weeks in the ER without arrhythmia. 5. Dyslipidemia: LDL is not at goal. Add Zetia to high intensity statin therapy. 6. Elevated troponin: Trend troponin until peak. Troponin level ordered. 7. Disposition: Cardiology will continue to follow. Plan of care discussed with Dr. Hawk of the primary hospitalist service. Thank you for allowing me to participate in the care of your patient. Please call for any other questions or concerns. Sincerely, Eliazar Pepper M.D. History of Present Illness Reason for Consultation: chest pain Requesting Physician: Ariel Velazco MD Attending Physician: Akash Hawk MD History of Present Illness Mrs. Painter is a very pleasant 69-year-old female history significant for CAD s/p LAD and RCA PCI, type 2 diabetes, high-grade AV block s/p biventricular ICD, cardiomyopathy, paroxysmal ventricular tachycardia, paroxysmal atrial fibrillation, LBBB, hypertension, and dyslipidemia. Her primary sewing inspector is Dr. Dailey. She has had the following studies/procedures: 1. Pacemaker implantation [facility] early to mid . 2. LAD PCI 2008. 3. Biventricular ICD 11/14/2010.Cardiac cath 05/29/2020 [facility] (Dr. Gentile) LAD in-stent restenosis 20%. Mid LAD 90%. Distal LAD tortuous 40%. D2 ostial/proximal 90%. Small D3 ostial 70%. Ramus proximal 100%. Mid circumflex 50%. OM 2 proximal 50 to 60%. Small high OM1 60%. Mid RCA stent 20% in-stent restenosis. Underwent PCI of mid LAD with overlapping 2.5 x 15 and 2.25 x 15 Rui NATI. 4. Echo 03/07/2024: Normal RV size. EF 30-35%. Akinetic apex. Hypokinesis of mid LV segments. Mildly reduced RV systolic function. Moderate left atrial dilation. Mild MR. Normal RVSP. 5. Cardiac cath 03/07/2024 (Dr. Gentile): Proximal LAD 40%. Mid LAD stents with 60 to 70% in-stent restenosis (IFR 0.81). Distal LAD 40 to 50%. Jailed small D2 with diffuse disease. Small D3 ostial 70%. Proximal ramus 100%. Fills distally via left to left collaterals. Mid circumflex 60 to 70% extending into bifurcation with OM 2. OM 2 proximal 50 to 60%. Small high OM1 60%. Dominant RCA. Patent mid RCA stent with 60 to 70% in-stent restenosis. Underwent PCI of proximal LAD overlapping proximal edge of prior stents with 3 x 8 mm Rui NATI. 6. Limited echo 08/08/2024: Normal LV size. EF 55-60%. Septal motion consistent with conduction abnormality. Normal RV size and systolic function. She was admitted on 4824 for chest discomfort. She described a left sided chest discomfort as a pressure. It occurred at 7 PM on 10/10/2024 while watching TV at rest. There was no radiation of the pain and no associated shortness of breath. She denied nausea, vomiting, fevers, or chills. The pain persisted for several hours throughout the night and apparently did not resolve until she was in the ER and she received nitroglycerin per her report. Her blood pressure was elevated up to 166/90 mmHg this morning in the ER. She states that she has been having intermittent chest discomfort for the past several weeks, after her mother . She estimates chest pain 2 days/week, but without trigger. She denies any exertional chest pain. Admittedly, she is not very active however but she does do some of the house work and does so without chest discomfort. She is currently chest pain-free at the time of our visit this morning. She denies syncope but apparently had an episode where she was taking a nap recently and her felt as though she may have been unconscious and tried performing chest compressions. She is a poor historian and does not recall many details. Hospitalist consultation from 09/23/2024 reported that she may have been napping per patient's report after presenting with that episode. Her apparently did not hear heart sounds when he put his ear to her chest according to hospitalist consultation. EMS report mentioned that her called stating that she stopped breathing but came to after 5 or 6 chest compressions. Her blood pressure by EMS was 110/60. Her ICD was interrogated per ER records with no abnormal rhythm, however the actual documentation of the interrogation is not available for my review. At her PCP office on 09/29/2024, carvedilol was reduced due to hypotension from 12.5 mg twice daily to 6.25 mg twice daily. She denies melena, hematochezia, hematuria, or other bleeding. Review of systems: As above. Review of systems otherwise negative/unremarkable. Family history: No known premature CAD. Social history: She denies tobacco or drug abuse. Occasional alcohol. Lives at home with her . She has 1 son and 1 grandchild. She was unaccompanied in her hospital room. Allergies Allergy/AdvReac Type Severity Reaction Status Date / Time latex Allergy Intermediate HIVES Verified 09/23/24 17:09 penicillin V Allergy Intermediate Hives Verified 09/23/24 17:09 adhesive Allergy Mild SKIN Verified 09/23/24 17:09 IRRITATION metformin AdvReac Intermediate Diarrhea Verified 09/23/24 17:09 olanzapine [From Zyprexa] AdvReac Intermediate lethargy Verified 09/23/24 17:09 Home Medications Medication Instructions Recorded Confirmed Type nitroglycerin 0.4 mg sublingual 0.4 mg sublingual DIRECTED PRN 06/16/18 10/11/24 History tablet (Nitrostat) Chest Pain atorvastatin 80 mg tablet 80 mg PO DAILY 03/12/21 10/11/24 History acetaminophen 500 mg tablet 1,000 mg PO Q6H PRN PAIN/FEVER 02/15/23 10/11/24 History (Tylenol Extra Strength) aspirin 81 mg tablet,delayed 81 mg PO QAM 04/28/23 10/11/24 History release magnesium oxide 400 mg PO QAM 04/28/23 10/11/24 History alendronate 70 mg tablet 70 mg PO WK 03/06/24 10/11/24 History isosorbide mononitrate 120 mg 120 mg PO QAM 03/06/24 10/11/24 History tablet,extended release 24 hr levothyroxine 50 mcg capsule 50 mcg PO DAILYBB 03/28/24 10/11/24 History solifenacin 10 mg tablet 10 mg PO DAILY 05/24/24 10/11/24 History thiamine HCl (vitamin B1) 100 mg 100 mg PO QAM #30 tabs 05/27/24 10/11/24 Rx tablet sacubitril 49 mg-valsartan 51 mg 1 tab PO BID #90 tabs 05/31/24 10/11/24 Rx tablet (Entresto) levetiracetam 500 mg tablet 500 mg PO BID #60 tabs 07/28/24 10/11/24 Rx (Keppra) gabapentin 100 mg capsule 100 mg PO HS 09/23/24 10/11/24 History carvedilol 6.25 mg tablet 6.25 mg PO BID 10/11/24 10/11/24 History Problem List Anemia (Acute) Pacemaker (Acute) Syncope (Acute) Seizure-like activity (Acute) Acute respiratory failure with hypoxia Acute hyponatremia (Acute) Hypoxia (Acute) Pneumonia (Acute) Diarrhea (Acute) Interstitial lung disease S/P coronary artery stent placement Non-ST elevation [place] (NSTEMI) (Acute) Chest pain (Acute) LBBB (left bundle branch block) Chest pain (Acute) Generalized weakness (Acute) Dyslipidemia Parainfluenza (Acute) Pneumonia (Acute) RAD (reactive airway disease) (Acute) UGIB (upper gastrointestinal bleed) SOB (shortness of breath) HBP (high blood pressure) GERD (gastroesophageal reflux disease) Osteoporosis AF (paroxysmal atrial fibrillation) Depression Diabetes mellitus, type 2 Fracture of L1 vertebra (Acute) Fall (Acute) Mixed hearing loss, bilateral Coronary artery disease Fatigue ICD (implantable cardioverter-defibrillator), biventricular, in situ Encounter for pre-operative examination Encounter for pre-operative examination Esophageal dysphagia Left knee pain (Acute) Left knee pain (Acute) Unstable angina Syncope (Acute) DVT prophylaxis Acute cystitis Ischemic cardiomyopathy Hypothyroidism PT DENIES. Patient History Medical History Chronic systolic heart failure Elevated troponin S/P right coronary artery (RCA) stent placement (2015) History of placement of stent in LAD coronary artery (2008) History of placement of stent in LAD coronary artery (2019) Hypomagnesemia Acute hypokalemia Non-ST elevation [place] (NSTEMI) Pneumonia Acid reflux disease with ulcer Alcohol abuse, unspecified Anxiety state, unspecified Anxiety disorder Atrial fibrillation Coronary artery disease Cardiac arrest Cardiomyopathy Congestive heart failure, unspecified Congestive cardiomyopathy Cor athrscl-uns vessel Depressive disorder, not elsewhere classified Dysphagia, oropharyngeal phase Fecal incontinence Goiter Celia's thyroiditis Other and unspecified hyperlipidemia Ocular hypertension, unspecified eye Lumbago Lumbar compression fracture Old myocardial infarct Postmenopausal atrophic vaginitis Subclinical hypothyroidism Type 2 diabetes mellitus Unknown whether patient has any health problems Urinary tract infection FREQUENT Cancer SKIN CANCER Hypertension Anxiety GERD (gastroesophageal reflux disease) HLD (hyperlipidemia) CAD (coronary artery disease) Surgical History History of appendectomy History of cardiac cath 1 STENT (2015 @ [facility]) History of esophagogastroduodenoscopy (EGD) History of colonoscopy History of tonsillectomy S/P placement of cardiac pacemaker ~15-20 YEARS AGO[address] FOLLOWS WITH [address] DAILEY AND LAST CHECKED 4 MONTHS AGO History of cholecystectomy Family History Mother Family history of diabetes mellitus Blind Hearing loss Hypertension Allergies Asthma Sister Family history of diabetes mellitus Coronary heart disease Father No problems noted. Denies family history of No family history of adverse response to anesthesia No family history of bleeding disorder Heart disease Cancer Stroke Social History Smoking Status: Never smoker Tobacco Type: Cigarettes Second Hand Exposure: No; Do You Dip or Chew Tobacco: No; Hx Alcohol Use: Yes Alcohol type: beer and wine Alcohol Intake Frequency: 2-3 x/Week Hx Substance Use: No Preferred Language: [place] Citizen Communication Ability: Effective Top Collar Maker Required: No Beliefs That Will Affect Care: None marital status: Current Living Situation: Spouse How many Children do You have: 1 Other Information That Helps Us Care for You: No Feels Safe at Home: Yes Safety Concerns: Feels Safe At This Time Assistive Devices: Glasses and Hearing Aid - Right Physical Exam Physical Exam: Gen.: No acute distress. Alert. HEENT: Anicteric sclera. Neck: No JVD. No bruits. Normal carotid upstrokes bilaterally. Cardiac: Regular. Normal S1-S2. No murmurs, rubs, or gallops. Pulmonary: Clear to auscultation bilaterally without wheezes, rales, or rhonchi. Abdomen: Soft, nontender, nondistended, with normoactive bowel sounds. No bruits noted. Extremities: 2+ left radial pulse. Right radial pulse nonpalpable. 2+ posterior tibialis pulses bilaterally. No edema or cyanosis. Chest: Nontender. Results & Data Vital Signs (Past 12 Hours) Vital Signs Temp Pulse Pulse Resp BP BP Pulse Ox 10/11/24 08:20 36.4 C L 68 14 156/90 H 99 10/11/24 08:11 65 18 166/90 H 97 10/11/24 06:33 65 18 96 10/11/24 06:30 117/76 10/11/24 06:30 117/76 10/11/24 06:27 66 17 97 10/11/24 06:18 66 19 97 10/11/24 06:00 108/64 10/11/24 06:00 108/64 10/11/24 06:00 108/64 10/11/24 06:00 108/64 10/11/24 05:26 78 10/11/24 05:14 37 C 69 20 132/80 97 O2 Del Method 10/11/24 08:20 Room Air 10/11/24 08:11 Room Air 10/11/24 06:33 10/11/24 06:30 10/11/24 06:30 10/11/24 06:27 10/11/24 06:18 10/11/24 06:00 10/11/24 06:00 10/11/24 06:00 10/11/24 06:00 10/11/24 05:26 10/11/24 05:14 Room Air Laboratory Results Laboratory Results - last 24 hr 10/11/24 10/11/24 05:21 07:07 WBC 5.21 RBC 4.81 Hgb 13.5 Hct 41.8 MCV 86.9 MCH 28.1 MCHC 32.3 RDW Std Deviation 42.5 RDW Coeff of Chucky 13.5 Plt Count 154 MPV 10.8 Immature Gran % (Auto) 0.6 Neut % (Auto) 65.4 Lymph % (Auto) 23.4 [place] % (Auto) 5.2 Eos % (Auto) 4.4 Baso % (Auto) 1.0 Neut # (Auto) 3.41 Lymph # (Auto) 1.22 [place] # (Auto) 0.27 Eos # (Auto) 0.23 Baso # (Auto) 0.05 Immature Gran # (Auto) 0.03 APTT 24 PTT Ratio 0.9 Sodium 137 Potassium 4.0 Chloride 103 Carbon Dioxide 26 Anion Gap 8 BUN 21 Creatinine 1.13 Est Cr Clr Drug Dosing 36.1 eGFR 52.01 BUN/Creatinine Ratio 18.6 Glucose 137 H Calcium 9.6 Magnesium 1.8 Total Bilirubin 0.5 AST 19 ALT 19 Alkaline Phosphatase 76 Troponin I High Sens 31.9 H 39.2 H Total Protein 7.8 Albumin 4.7 Globulin 3.1 Albumin/Globulin Ratio 1.5 Triglycerides 184 H Cholesterol 156 LDL Cholesterol, Calc 83 VLDL Cholesterol, Calc 37 H HDL Cholesterol 36 Cholesterol/HDL Ratio 4.3 Lipase 35 Ethyl Alcohol mg/dL < 10.0 Diagnostic Findings Labs personally reviewed and notable for slightly elevated high-sensitivity troponin up to 39 thus far. Normal potassium, stable renal function, normal magnesium, normal transaminase levels, normal blood counts. Elevated LDL in the setting of CAD. Chest x-ray 4825: Prominent bronchovascular markings bilaterally with peribronchial wall cuffing, interstitial thickening, and alveolar opacities bilaterally. Mostly stable since last study according to radiology. History and physical report reviewed. ECG personally reviewed 10/11/2024: AV paced 82 bpm. Outpatient family practice report reviewed from 09/29/2024. Cardiac cath reports reviewed as summarized in HPI. Cardiac cath images review ed from 03/07/2024. Medications Administered Current Inpatient Medications Acetaminophen (Acetaminophen 325 Mg Tab) 650 mg PO QID PRN PRN Reason: pain/fever Stop: 11/10/24 07:38 Aspirin (Aspirin 81 Mg Ectab) 81 mg PO QAM ARTIE Stop: 11/11/24 08:59 Atorvastatin Calcium (Atorvastatin 40 Mg Tab) 80 mg PO DAILY ARTIE Stop: 11/10/24 08:59 Last Admin: 10/11/24 09:16 Dose: 80 mg Carvedilol (Carvedilol 6.25 Mg Tab) 6.25 mg PO BID ARTIE Stop: 11/10/24 08:59 Last Admin: 10/11/24 09:17 Dose: 6.25 mg Dextrose (Dextrose 50% 50 Ml Syringe) 25 - 50 ml IV UD PRN; Protocol PRN Reason: Hypoglycemia Protocol Stop: 11/10/24 08:27 Enoxaparin Sodium (Enoxaparin Inj 30 Mg/0.3 Ml Syr) 30 mg SQ QAM ARTIE Stop: 11/10/24 08:59 Last Admin: 10/11/24 09:16 Dose: 30 mg Gabapentin (Gabapentin 100 Mg Cap) 100 mg PO HS [facility] Stop: 11/10/24 20:59 Glucagon (Glucagon For Inj 1 Mg Vial) 1 mg SQ UD PRN; Protocol PRN Reason: Hypoglycemia Protocol Stop: 11/10/24 08:27 Glucose (Glucose 40% Gel 15 Gm Tube) 15 - 30 gm PO UD PRN; Protocol PRN Reason: Hypoglycemia Protocol Stop: 11/10/24 08:27 Glucose (Glucose 10 Tab/Tube) 4 - 8 tab PO UD PRN; Protocol PRN Reason: Hypoglycemia Protocol Stop: 11/10/24 08:27 Promethazine HCl (Phenergan) 6.25 mg in 50.25 mls @ 201 mls/hr IV Q6H PRN PRN Reason: Nausea And Vomiting Stop: 11/10/24 06:47 Insulin Aspart (Insulin Aspart Per Unit Charge) 0 units SC ACHS ARTIE Stop: 11/10/24 08:29 Last Admin: 10/11/24 09:18 Dose: Not Given Isosorbide Mononitrate (Isosorbide Mononitrate 20 Mg Tab) 120 mg PO QAM [facility] Stop: 11/10/24 11:14 Levetiracetam (Levetiracetam 500 Mg Tab) 500 mg PO BID [facility] Stop: 11/10/24 08:59 Last Admin: 10/11/24 09:17 Dose: 500 mg Levothyroxine Sodium (Levothyroxine Sodium 50 Mcg Tablet) 50 mcg PO DAILYBB [facility] Stop: 11/11/24 06:29 Lorazepam (Lorazepam 2 Mg/1 Ml Vial) 1 mg IV ONE PRN; Protocol PRN Reason: EtoH Withdrawal AWSS 6-10 Miscellaneous (Carbohydrates For Hypoglycemia ) 15 - 30 gm PO UD PRN PRN Reason: Hypoglycemia Protocol Stop: 11/10/24 08:27 Oxybutynin Chloride (Oxybutynin Chloride Xl 5 Mg Tabcr) 10 mg PO DAILY [facility] Stop: 11/10/24 08:59 Last Admin: 10/11/24 09:17 Dose: 10 mg Oxycodone HCl (Oxycodone Hcl Ir 5 Mg Tab (Immediate Release)) 5 mg PO Q4H PRN PRN Reason: Pain Stop: 10/25/24 06:47 Sacubitril/Valsartan (Valsartan/Sacubitril 51/49 Mg Tab) 1 tab PO BID [facility] Stop: 11/10/24 08:59 Last Admin: 10/11/24 09:17 Dose: 1 tab Thiamine HCl (Thiamine Hcl 100 Mg Tab) 100 mg PO QAM [facility] Stop: 11/11/24 08:59 PG Care Time/CCT Total # of Minutes Spent Total Time Spent with Patient: Total time spent is greater than 50% in coordination of care (as documented) at patient's floor/unit and/or counseling patient: Coding Level of Care Code 49011 INT INP/OBS CARE 3/75MIN Diagnoses Coronary artery disease I25.10 S/P coronary artery stent placement Z95.5 Elevated troponin R79.89 Cardiomyopathy I42.9 ICD (implantable cardioverter-defibrillator), biventricular, in situ Z95.810 Chest pain, unspecified type R07.9 Chest pain type: unspecified (6) Chest pain Chest pain type: unspecified Qualified Code(s): R07.9 - Chest pain, unspecified
--- NOTE | 2024-10-11 12:38 | XCELERA ---
[id number] [id number]
[2024-10-11] MEDS: CLOPIDOGREL BISULFATE 300 MG TAB PO STA (16:37)
--- NOTE | 2024-10-11 19:09 | Communication Note ---
Date of Service: October 11, 2024 seen resting in bed, comfortable, not in distress States she feels fine overall States that she has not had any chest pain since last night No shortness of breath, palpitations, dizziness troponin increased from 30s to 80s Discussed with Dr. Pepper plan for cardiac cath tomorrow Plavix and Zetia started Akash Hawk MD
[2024-10-11] MEDS: GABAPENTIN 100 MG CAP PO SCH (20:35)
--- NOTE | 2024-10-12 05:33 | Electrocardiogram Report ---
Test Reason : Blood Pressure : */* mmHG Vent. Rate : 82 BPM Atrial Rate : 82 BPM P-R Int : 168 ms QRS Dur : 166 ms QT Int : 428 ms P-R-T Axes : -38 -67 96 degrees QTcB Int : 500 ms AV dual-paced rhythm Abnormal ECG When compared with ECG of 23-Sep-2024 14:13, Vent. rate has increased by 14 bpm Confirmed by Gianni Pepper ([id number]) on 10/12/2024 5:33:10 AM Referred By: REFERRED SELF Confirmed By: Gianni Pepper
[2024-10-12 06:10] LABS: Basophils # (auto) 0.03 K/uL (0.00-0.20); Basophils % (auto) 0.6 %; Eosinophils # (auto) 0.16 K/uL (0.00-0.50); Eosinophils % (auto) 3.2 %; Hematocrit (blood only) 32.9 % (37.0-47.0); Immature Granulocytes # (auto) 0.01 K/uL (0.01-0.20); Immature Granulocytes % (auto) 0.2 %; Lymphocytes # (auto) 1.02 K/uL (1.20-3.40); Lymphocytes % (auto) 20.5 %; Mean Corpuscular Hemoglobin 28.1 pg (25.0-34.0); Mean Corpuscular Hgb Conc 33.4 g/dL (32.0-36.0); Mean Corpuscular Volume 83.9 fL (80.0-100.0); Mean Platelet Volume 10.6 fL (9.4-12.4); Monocytes # (auto) 0.25 K/uL (0.11-0.59); Neutrophils % (auto) 70.5 %; Platelet Count 117 K/uL (130-400); RDW Coefficient of Variation 13.6 % (11.5-14.5); RDW Standard Deviation 41.6 fL (36.4-46.3); Red Blood Count 3.92 M/uL (4.20-5.40); White Blood Count 4.97 K/ul (4.8-10.8)
[2024-10-12 06:22] LABS: BUN Creatinine Ratio 19.7 (10-20); Calcium 8.7 mg/dl (8.6-10.3); Creatinine Clr Calc Pharmacy 36.1 ml/min; Magnesium 1.7 mg/dl (1.7-2.4); Phosphorus 3.5 mg/dl (2.5-4.9); Potassium 4.2 mmol/L (3.5-5.1)
[2024-10-12] MEDS: LEVOTHYROXINE SODIUM 50 MCG TABLET PO SCH (06:34)
[2024-10-12] MEDS: EZETIMIBE 10 MG TAB PO SCH (09:44)
[2024-10-12] MEDS: CLOPIDOGREL BISULFATE 75 MG TAB PO SCH (09:45)
[2024-10-12] MEDS: THIAMINE HCL 100 MG TAB PO SCH (09:45)
[2024-10-12] MEDS: ISOSORBIDE MONONITRATE 20 MG TAB PO SCH (09:46)
[2024-10-12] MEDS: ASPIRIN 81 MG ECTAB PO SCH (09:46)
[2024-10-12 10:28] LABS: Troponin I High Sensitivity 63.5 pg/ml (0-14)
--- NOTE | 2024-10-12 11:41 | Cardiology Progress Note ---
Date of Service October 12, 2024 Assessment & Plan (1) Coronary artery disease: (2) S/P coronary artery stent placement: (3) Elevated troponin: (4) Cardiomyopathy: (5) ICD (implantable cardioverter-defibrillator), biventricular, in situ: (6) Chest pain: Plan ASSESSMENT/PLAN: 1. CAD s/p LAD and RCA PCI: No recurrent angina. Troponin further increased yesterday. Repeated troponin today and it has since trended downward. Given that she had been having recurrent symptoms in the outpatient setting, she would like to pursue coronary angiography. Risk and benefits were discussed with her today in detail. Continue aspirin 81 mg daily. Multiple PCI with overlapping stents, would recommend Plavix 75 mg daily for a longer course as originally recommended by interventional cardiology in March 2024. Plavix has not been on her medication list for a few months and she does not recall why. Plavix resumed on 10/11/2024 with 300 mg and then 75 mg daily starting today. Continue beta-jus as tolerated. Continue high intensity statin therapy. 2. Chest pain: No recurrent angina. Coronary angiography today. Carvedilol reduced in September 2024 by her PCP due to hypotension in the office. Continue nitrate therapy. 3. Ischemic cardiomyopathy: LV systolic function has improved after most recent PCI of LAD. She appears euvolemic. Continue ARNI and beta-jus. Has followed in the heart failure program. NYHA class I per patient history. 4. Biventricular ICD: Follows with electrophysiology. Reportedly interrogated within the past couple of weeks in the ER without arrhythmia. 5. Dyslipidemia: LDL is not at goal. Added Zetia to high intensity statin therapy. 6. Elevated troponin: As above. 7. Disposition: Cardiology will continue to follow. Plan of care communicated with Dr. Ledezma of the primary hospitalist service. Patient's contacted via telephone as per patient request. We discussed plan of care and he is in agreement with coronary angiography. Admission and Anticipated Discharge Date Admission Date: October 11, 2024 Subjective Patient seen this morning. She has not had any further chest discomfort. She denies shortness of breath, syncope, near syncope, palpitations. She would like to pursue cardiac catheterization given further increase in high-sensitivity troponin yesterday afternoon. Physical Exam Physical Exam: Gen.: No acute distress. Alert. Oriented x 3. HEENT: Anicteric sclera. Neck: No JVD. Cardiac: Regular. Normal S1-S2. No murmurs, rubs, or gallops. Pulmonary: Clear to auscultation bilaterally without wheezes, rales, or rhonchi. Abdomen: Soft, nontender, nondistended, with normoactive bowel sounds. No bruits noted. Extremities: 2+ left radial pulse. Right radial pulse nonpalpable. 2+ posterior tibialis pulses bilaterally. No edema or cyanosis. Results & Data Vital Signs (Past 12 Hours) Vital Signs Temp Pulse Pulse Resp BP Pulse Ox O2 Del Method 10/12/24 08:01 36.5 C 62 17 119/74 95 Room Air 10/12/24 08:00 Room Air 10/12/24 05:50 64 10/12/24 03:14 36.5 C 62 16 169/81 H 96 Room Air Intake & Output 10/10/24 10/11/24 10/12/24 10/13/24 06:59 06:59 06:59 06:59 Intake Total 240 / 240 Balance 240 / 240 Weight 130 lb 1.164 oz 132 lb 11.492 oz Laboratory Results Laboratory Results - last 24 hr 10/11/24 10/11/24 10/11/24 12:25 14:33 16:12 WBC RBC Hgb Hct MCV MCH MCHC RDW Std Deviation RDW Coeff of Chucky Plt Count MPV Immature Gran % (Auto) Neut % (Auto) Lymph % (Auto) [place] % (Auto) Eos % (Auto) Baso % (Auto) Neut # (Auto) Lymph # (Auto) [place] # (Auto) Eos # (Auto) Baso # (Auto) Immature Gran # (Auto) Sodium Potassium Chloride Carbon Dioxide Anion Gap BUN Creatinine Est Cr Clr Drug Dosing eGFR BUN/Creatinine Ratio Glucose POC Glucose 118 H 101 H Calcium Phosphorus Magnesium Troponin I High Sens 82.0 H* D 10/11/24 10/12/24 10/12/24 20:33 05:52 07:32 WBC 4.97 RBC 3.92 L Hgb 11.0 L Hct 32.9 L MCV 83.9 MCH 28.1 MCHC 33.4 RDW Std Deviation 41.6 RDW Coeff of Chucky 13.6 Plt Count 117 L MPV 10.6 Immature Gran % (Auto) 0.2 Neut % (Auto) 70.5 Lymph % (Auto) 20.5 [place] % (Auto) 5.0 Eos % (Auto) 3.2 Baso % (Auto) 0.6 Neut # (Auto) 3.50 Lymph # (Auto) 1.02 L [place] # (Auto) 0.25 Eos # (Auto) 0.16 Baso # (Auto) 0.03 Immature Gran # (Auto) 0.01 Sodium 139 Potassium 4.2 Chloride 108 H Carbon Dioxide 26 Anion Gap 5 BUN 24 H Creatinine 1.22 H Est Cr Clr Drug Dosing 36.1 eGFR 47.44 BUN/Creatinine Ratio 19.7 Glucose 125 H POC Glucose 130 H 117 H Calcium 8.7 Phosphorus 3.5 Magnesium 1.7 Troponin I High Sens 63.5 H* D Diagnostic Findings Labs reviewed and notable for high-sensitivity troponin peak of 82. Mildly abnormal renal function, not significantly changed from yesterday. Normal potassium. Mild anemia. Mild thrombocytopenia Telemetry personally reviewed: Sinus rhythm with atrial sensing and ventricular pacing. Medications Administered Current Inpatient Medications Acetaminophen (Acetaminophen 325 Mg Tab) 650 mg PO QID PRN PRN Reason: pain/fever Stop: 11/10/24 07:38 Aspirin (Aspirin 81 Mg Ectab) 81 mg PO QAM [facility] Stop: 11/11/24 08:59 Last Admin: 10/12/24 09:46 Dose: 81 mg Atorvastatin Calcium (Atorvastatin 40 Mg Tab) 80 mg PO DAILY [facility] Stop: 11/10/24 08:59 Last Admin: 10/12/24 09:46 Dose: 80 mg Carvedilol (Carvedilol 6.25 Mg Tab) 6.25 mg PO BID [facility] Stop: 11/10/24 08:59 Last Admin: 10/12/24 09:46 Dose: 6.25 mg Clopidogrel Bisulfate (Clopidogrel Bisulfate 75 Mg Tab) 75 mg PO QAM [facility] Stop: 11/11/24 08:59 Last Admin: 10/12/24 09:45 Dose: 75 mg Dextrose (Dextrose 50% 50 Ml Syringe) 25 - 50 ml IV UD PRN; Protocol PRN Reason: Hypoglycemia Protocol Stop: 11/10/24 08:27 Ezetimibe (Ezetimibe 10 Mg Tab) 10 mg PO QAM [facility] Stop: 11/11/24 08:59 Last Admin: 10/12/24 09:44 Dose: 10 mg Enoxaparin Sodium (Enoxaparin Inj 30 Mg/0.3 Ml Syr) 30 mg SQ QAM [facility] Stop: 11/10/24 08:59 Last Admin: 10/12/24 09:45 Dose: 30 mg Gabapentin (Gabapentin 100 Mg Cap) 100 mg PO HS [facility] Stop: 11/10/24 20:59 Last Admin: 10/11/24 20:35 Dose: 100 mg Glucagon (Glucagon For Inj 1 Mg Vial) 1 mg SQ UD PRN; Protocol PRN Reason: Hypoglycemia Protocol Stop: 11/10/24 08:27 Glucose (Glucose 40% Gel 15 Gm Tube) 15 - 30 gm PO UD PRN; Protocol PRN Reason: Hypoglycemia Protocol Stop: 11/10/24 08:27 Glucose (Glucose 10 Tab/Tube) 4 - 8 tab PO UD PRN; Protocol PRN Reason: Hypoglycemia Protocol Stop: 11/10/24 08:27 Promethazine HCl (Phenergan) 6.25 mg in 50.25 mls @ 201 mls/hr IV Q6H PRN PRN Reason: Nausea And Vomiting Stop: 11/10/24 06:47 Insulin Aspart (Insulin Aspart Per Unit Charge) 0 units SC ACHS [facility] Stop: 11/10/24 08:29 Last Admin: 10/12/24 08:55 Dose: Not Given Isosorbide Mononitrate (Isosorbide Mononitrate 20 Mg Tab) 120 mg PO QAM [facility] Stop: 11/10/24 11:14 Last Admin: 10/12/24 09:46 Dose: 120 mg Levetiracetam (Levetiracetam 500 Mg Tab) 500 mg PO BID [facility] Stop: 11/10/24 08:59 Last Admin: 10/12/24 09:47 Dose: 500 mg Levothyroxine Sodium (Levothyroxine Sodium 50 Mcg Tablet) 50 mcg PO DAILYBB [facility] Stop: 11/11/24 06:29 Last Admin: 10/12/24 06:34 Dose: 50 mcg Lorazepam (Lorazepam 2 Mg/1 Ml Vial) 1 mg IV ONE PRN; Protocol PRN Reason: EtoH Withdrawal AWSS 6-10 Miscellaneous (Carbohydrates For Hypoglycemia ) 15 - 30 gm PO UD PRN PRN Reason: Hypoglycemia Protocol Stop: 11/10/24 08:27 Oxybutynin Chloride (Oxybutynin Chloride Xl 5 Mg Tabcr) 10 mg PO DAILY [facility] Stop: 11/10/24 08:59 Last Admin: 10/12/24 09:47 Dose: 10 mg Oxycodone HCl (Oxycodone Hcl Ir 5 Mg Tab (Immediate Release)) 5 mg PO Q4H PRN PRN Reason: Pain Stop: 10/25/24 06:47 Sacubitril/Valsartan (Valsartan/Sacubitril 51/49 Mg Tab) 1 tab PO BID [facility] Stop: 11/10/24 08:59 Last Admin: 10/12/24 09:47 Dose: 1 tab Thiamine HCl (Thiamine Hcl 100 Mg Tab) 100 mg PO QAM [facility] Stop: 11/11/24 08:59 Last Admin: 10/12/24 09:45 Dose: 100 mg PG Care Time/CCT Total # of Minutes Spent Total Time Spent with Patient: Total time spent is greater than 50% in coordination of care (as documented) at patient's floor/unit and/or counseling patient: Coding Level of Care Code 52363 SUB INP/OBS CARE 3/50MIN Diagnoses Coronary artery disease I25.10 S/P coronary artery stent placement Z95.5 Elevated troponin R79.89 Cardiomyopathy I42.9 ICD (implantable cardioverter-defibrillator), biventricular, in situ Z95.810 Chest pain, unspecified type R07.9
--- NOTE | 2024-10-12 11:57 | Pre Anesthesia Assessment ---
Date of Service October 12, 2024 Pre Sedation Assessment Vital Signs Temp Pulse Pulse Resp BP Pulse Ox O2 Del Method 10/12/24 08:01 36.5 C 62 17 119/74 95 Room Air 10/12/24 08:00 Room Air 10/12/24 05:50 64 10/12/24 03:14 36.5 C 62 16 169/81 H 96 Room Air 10/11/24 23:23 36.8 C 67 16 136/66 94 Room Air 10/11/24 19:17 36.4 C L 63 16 138/72 95 Room Air 10/11/24 16:29 36.8 C 63 17 122/71 98 Room Air 10/11/24 12:09 37.0 C 57 L 20 118/61 98 Room Air Cardiovascular RRR, no murmur, no edema Respiratory normal respiratory effort, lungs clear to auscultation Pre-Sedation Airway Assessment Smoking Status: Never smoker Hx Sleep Apnea: No Hx Difficult Intubation: No Mallampati Class: III ASA: ASA3 NPO Status Date of Last Intake of Fluids: 10/12/24 Time of Last Intake of Fluids: 09:00 Last Oral Intake of Fluids Comment: sips with meds Date of Last Intake of Solid Food: 10/11/24 Time of Last Intake of Solid Foods: 18:00 Procedure Planning Contraindications for Sedation: none Current Medications Reviewed: Yes Notes The planned sedation has been discussed with the patient. Informed Consent was obtained. I have identified the patient, determined the appropriateness of sedation and have assessed the patient immediately prior to the procedure. All medicine(s) and interventions are by my order.
[2024-10-12] MEDS: fentaNYL citrate PF 100 MCG/2 ML VIAL ONE (15:22)
[2024-10-12] MEDS: HEPARIN (PORCINE) 1000 UNIT/ML 10 ML (CATH LAB USE ONLY) ONE (15:22)
[2024-10-12] MEDS: MIDAZOLAM HCL 1 MG/ML 2ML VIAL ONE (15:24)
[2024-10-12] MEDS: IODIXANOL (VISIPAQUE) 320 MG/ML 100ML IV ONE (15:24)
[2024-10-12] MEDS: NITROGLYCERIN/D5W 100MCG/ML 20ML SYR ONE (15:25)
[2024-10-12] MEDS: niCARdipine 2,000 MCG/20 ML SYR ONE (15:25)
--- NOTE | 2024-10-12 15:43 | Post Anesthesia Assessment ---
Date of Service October 12, 2024 Post Sedation Assessment Vital Signs Temp Pulse Pulse Resp BP Pulse Ox O2 Del Method 10/12/24 15:30 68 16 121/63 95 Room Air 10/12/24 13:00 80 18 103/55 L 95 Room Air 10/12/24 12:42 98.2 F 82 20 99/62 L 95 Room Air 10/12/24 08:01 97.7 F 62 17 119/74 95 Room Air 10/12/24 08:00 Room Air 10/12/24 05:50 64 10/12/24 03:14 97.7 F 62 16 169/81 H 96 Room Air 10/11/24 23:23 98.2 F 67 16 136/66 94 Room Air 10/11/24 19:17 97.5 F L 63 16 138/72 95 Room Air 10/11/24 16:29 98.2 F 63 17 122/71 98 Room Air Recovery Score Activity: Moves 4 extremities Respiration: Deep Breath/Cough Circulation: +/-20% PreAnes Value Consciousness: Fully Awake Oxygen Saturation: O2 needed for >90% Post Anesthesia Score: 10 Discharge Sedation Level of Care: Fast Track Phase II Post Sedation Plan On clinical assessment, the patient appears to have tolerated the sedation without complications. Patient is recovering as anticipated. Patient will continue to be monitored by nursing and may be discharged when sedation discharge criteria are met per below protocol. Upon Completions of procedure up to 15 minutes continue every 5 minute vital signs and the P.A.R. score; then discharge to a Phase I or Fast Track to Phase II per the following guidelines: * Discharge Patient to appropriate Phase II area if PAR is 8 or greater or return to pre- procedure baseline. The post - procedure orders will be as directed. * If PAR score is less than 8 or not return to pre-procedure baseline then patient will follow Phase I monitoring till PAR is reached for Phase II. The Phase I may be done in procedure room or may call to secure a Phase I area. * If naloxone or flumazenil are used for reversal, hold in Phase I for continued monitoring from when last reversal dose was given for a minimum of 60 minutes or longer pending the nurse and/or physician discretion of patient condition before discharge to Phase II. Please call the Sedation Physician to re-evaluate and complete post-note for discharge to Phase II area. Sedation Discharge Instructions to be given to the patient at discharge to home.
--- NOTE | 2024-10-12 15:46 | Cardiac Catheterization ---
[facility] Data: Finisher Tailor Apprentice Cardiac Status Clinical evaluation leading to the procedure CAD Presenation: Non STEMI Anginal Classification: CCS IV Diagnostic Physicians Name: Burt Gentile MD Closure Device Recommendations: PCI without planned CABG Cardiac Cath Procedure Full Procedure Date October 12, 2024 Pre-Procedure Diagnosis Pre-Procedure Diagnosis: CAD AUC Score AUC Score: 7 Post-Procedure Diagnosis Post-Procedure Diagnosis: Severe CAD and Successful PCI Procedure(s) Performed Procedure(s) Performed: Coronary Angiography and Drug Eluting Stent K [employer] Principal Burt Gentile MD Drywall Boardhanger(s) Showers Estimated Blood Loss Estimated Blood Loss: 15 Medication(s) Medication(s): Clopidogrel, Fentanyl, Heparin, Nicardipine, Nitroglycerin and Versed Summary of Findings Indication: History of multivessel CAD. Recurrent chest pain, ACS Access: 6 Fr left radial artery Catheters: JR4 guide Findings: For full details of patient's coronary angiography please see cath report dictated by Dr. Pepper. Briefly, patient found to have 95% focal stenosis at distal aspect of prior mid RCA stent. Decision to proceed with PCI. -- PCI -- Antithrombotic therapy: Heparin, clopidogrel Procedure: RCA cannulated with JR4 guide Pre-procedure flow SASHA 3 Radio Station Engineer 50 wire passed across lesion into distal vessel Mid RCA lesion predilated with 2.5 compliant balloon Distal in-stent restenosis further predilated with 3.0 [place] cutting balloon Dilated lesion stented with 3.0 x 22 mm Rui drug-eluting stent Stent post-dilated with 3.5 noncompliant balloon IC vasodilators administered for spasm Post procedure SASHA 3 flow, stent well expanded with minimal residual stenosis and no apparent cardiac complications. Arterial Closure: TR band Summary: 1. Successful PCI of mid RCA with single drug-eluting stent (3.0 x 22 mm Rui; postdilated with 3.5 NC). Recommendations: To PCU for continued monitoring Continue dual-antiplatelet therapy likely indefinitely in the setting of multivessel, overlapping stents Continue statin, and ASCVD risk factor modification Consult cardiac Rehab Plan on staged PCI of mid circumflex/OM2 disease at some point, potentially later this hospitalization pending clinical course Hemodynamics Rest Ao:: 101/51/71 Final Ao: 114/58/95 LV: -- Recommendations Recommendations: PCI without planned CABG Radiation Exposure (mGy) 1065 Contrast (mls) 50 Anesthesia Moderate 0264-2382 Procedural Complication(s) None Disposition PCU I attest to the content of the Intraoperative Record and any orders documented therein. Any exceptions are noted below. [facility] Card Cath Procedure Codes Moderate Sedation Procedure 1: Sedation/Anesthesia: 28545 Mod Sedation by the same physician; Ea [id number] Minutes Stenting Procedure 1: Cardiovascular Stent Procedures: 75969 Perc transcatheter placement of intracoronary stent(s), with ang PG Care Time/CCT Total # of Minutes Spent Total Time Spent with Patient: Total time spent is greater than 50% in coordination of care (as documented) at patient's floor/unit and/or counseling patient:
--- NOTE | 2024-10-12 16:23 | Hospitalist Progress Note ---
Date of Service October 12, 2024 Assessment & Plan (1) Chest pain: Plan: Chest pain History CAD status post stent Possible unstable angina Admitted to PCU Continued aspirin, beta-jus, statin Rx on admission Repeat troponin; TTE obtained Cardiology consulted re: chest pain, history of CAD (Patient known to [facility].) - started back on Plavix, started Zetia Discussed w/ cardiology today Pt went for cardiac cath S/p Successful PCI of mid RCA with single drug-eluting stent (3.0 x 22 mm [place]; postdilated with 3.5 NC) w/ Dr. 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 Heparin DNR as per patient Patient's - Mr. John Painter, ([id number]) Admission and Anticipated Discharge Date Admission Date: October 11, 2024 Subjective Pt seen in follow up of chest pain s/p cardiac cath today Lying in bed in NAD, reports feeling cold otherwise denies any chest pain, shortness of breath, dizziness or palpitations no abd. pain, n/v Review of Systems Review of Systems: All systems reviewed & are unremarkable except as noted in Subjective Physical Exam Physical Exam: GENERAL: WD/WN F in NAD, hard of hearing HEENT: pale palpebral conjunctivae, no ptosis NECK : Supple, no tenderness CHEST : Decreased breath sounds, no tenderness HEART : RRR, no obvious murmurs ABDOMEN: nontender, soft EXTREMITIES : No LE swelling/tenderness, no LE edema, moves extremities NEUROLOGIC : awake, alert, no facial asymmetry, hard of hearing, gait and stance time not assessed SKIN: Pallor, warm Results & Data Results & Data Vital Signs (Past 12 Hours) Vital Signs Temp Pulse Pulse Resp BP Pulse Ox O2 Del Method 04/09/25 16:00 70 16 100/61 96 Room Air 10/12/24 15:42 66 16 123/56 L 95 Room Air 10/12/24 15:30 68 16 121/63 95 Room Air 10/12/24 13:00 80 18 103/55 L 95 Room Air 10/12/24 12:42 36.8 C 82 20 99/62 L 95 Room Air 10/12/24 08:01 36.5 C 62 17 119/74 95 Room Air 10/12/24 08:00 Room Air 10/12/24 05:50 64 Laboratory Results 10/12/24 10/12/24 10/12/24 Range/Units 15:15 12:03 07:32 WBC (4.8-10.8) K/ul RBC (4.20-5.40) M/uL Hgb (12.0-16.0) g/dl Hct (37.0-47.0) % MCV (80.0-100.0) fL MCH (25.0-34.0) pg MCHC (32.0-36.0) g/dL RDW Std Deviation (36.4-46.3) fL RDW Coeff of Chucky (11.5-14.5) % Plt Count (130-400) K/uL MPV (9.4-12.4) fL Immature Gran % (Auto) % Neut % (Auto) % Lymph % (Auto) % [place] % (Auto) % Eos % (Auto) % Baso % (Auto) % Neut # (Auto) (1.40-6.50) K/uL Lymph # (Auto) (1.20-3.40) K/uL [place] # (Auto) (0.11-0.59) K/uL Eos # (Auto) (0.00-0.50) K/uL Baso # (Auto) (0.00-0.20) K/uL Immature Gran # (Auto) (0.01-0.20) K/uL Activ Coag Time Kaolin 302 H (94-140) SECONDS Sodium (136-145) mmol/L Potassium (3.5-5.1) mmol/L Chloride (98-107) mmol/L Carbon Dioxide (21-32) mmol/L Anion Gap (3-11) BUN (6-23) mg/dl Creatinine (0.6-1.2) mg/dl Est Cr Clr Drug Dosing ml/min eGFR BUN/Creatinine Ratio (10-20) Glucose (70-99(Fasting)) mg/dl POC Glucose 123 H 117 H (70-99) mg/dl Calcium (8.6-10.3) mg/dl Phosphorus (2.5-4.9) mg/dl Magnesium (1.7-2.4) mg/dl Troponin I High Sens (0-14) pg/ml 10/12/24 10/11/24 Range/Units 05:52 20:33 WBC 4.97 (4.8-10.8) K/ul RBC 3.92 L (4.20-5.40) M/uL Hgb 11.0 L (12.0-16.0) g/dl Hct 32.9 L (37.0-47.0) % MCV 83.9 (80.0-100.0) fL MCH 28.1 (25.0-34.0) pg MCHC 33.4 (32.0-36.0) g/dL RDW Std Deviation 41.6 (36.4-46.3) fL RDW Coeff of Chucky 13.6 (11.5-14.5) % Plt Count 117 L (130-400) K/uL MPV 10.6 (9.4-12.4) fL Immature Gran % (Auto) 0.2 % Neut % (Auto) 70.5 % Lymph % (Auto) 20.5 % [place] % (Auto) 5.0 % Eos % (Auto) 3.2 % Baso % (Auto) 0.6 % Neut # (Auto) 3.50 (1.40-6.50) K/uL Lymph # (Auto) 1.02 L (1.20-3.40) K/uL [place] # (Auto) 0.25 (0.11-0.59) K/uL Eos # (Auto) 0.16 (0.00-0.50) K/uL Baso # (Auto) 0.03 (0.00-0.20) K/uL Immature Gran # (Auto) 0.01 (0.01-0.20) K/uL Activ Coag Time Kaolin (94-140) SECONDS Sodium 139 (136-145) mmol/L Potassium 4.2 (3.5-5.1) mmol/L Chloride 108 H (98-107) mmol/L Carbon Dioxide 26 (21-32) mmol/L Anion Gap 5 (3-11) BUN 24 H (6-23) mg/dl Creatinine 1.22 H (0.6-1.2) mg/dl Est Cr Clr Drug Dosing 36.1 ml/min eGFR 47.44 BUN/Creatinine Ratio 19.7 (10-20) Glucose 125 H (70-99(Fasting)) mg/dl POC Glucose 130 H (70-99) mg/dl Calcium 8.7 (8.6-10.3) mg/dl Phosphorus 3.5 (2.5-4.9) mg/dl Magnesium 1.7 (1.7-2.4) mg/dl Troponin I High Sens 63.5 H* D (0-14) pg/ml Medications Administered Current Inpatient Medications Acetaminophen (Acetaminophen 325 Mg Tab) 650 mg PO QID PRN PRN Reason: pain/fever Stop: 11/10/24 07:38 Aspirin ([facility]in 81 Mg [facility]) [facility] Stop: 11/11/24 08:59 Last Admin: 10/12/24 09:46 Dose: 81 mg Atorvastatin Calcium (Atorvastatin 40 Mg Tab) 80 mg PO DAILY [facility] Stop: 11/10/24 08:59 Last Admin: 10/12/24 09:46 Dose: 80 mg Carvedilol (Carvedilol 6.25 Mg Tab) 6.25 mg PO BID [facility] Stop: 11/10/24 08:59 Last Admin: 10/12/24 09:46 Dose: 6.25 mg Clopidogrel Bisulfate (Clopidogrel Bisulfate 75 Mg Tab) 75 mg PO QAM [facility] Stop: 11/11/24 08:59 Last Admin: 10/12/24 09:45 Dose: 75 mg Dextrose (Dextrose 50% 50 Ml Syringe) 25 - 50 ml IV UD PRN; Protocol PRN Reason: Hypoglycemia Protocol Stop: 11/10/24 08:27 Ezetimibe (Ezetimibe 10 Mg Tab) 10 mg PO QAM [facility] Stop: 11/11/24 08:59 Last Admin: 10/12/24 09:44 Dose: 10 mg Enoxaparin Sodium (Enoxaparin Inj 30 Mg/0.3 Ml Syr) 30 mg SQ QAM [facility] Stop: 11/10/24 08:59 Last Admin: 10/12/24 09:45 Dose: 30 mg Gabapentin (Gabapentin 100 Mg Cap) 100 mg PO HS [facility] Stop: 11/10/24 20:59 Last Admin: 10/11/24 20:35 Dose: 100 mg Glucagon (Glucagon For Inj 1 Mg Vial) 1 mg SQ UD PRN; Protocol PRN Reason: Hypoglycemia Protocol Stop: 11/10/24 08:27 Glucose (Glucose 40% Gel 15 Gm Tube) 15 - 30 gm PO UD PRN; Protocol PRN Reason: Hypoglycemia Protocol Stop: 11/10/24 08:27 Glucose (Glucose 10 Tab/Tube) 4 - 8 tab PO UD PRN; Protocol PRN Reason: Hypoglycemia Protocol Stop: 11/10/24 08:27 Promethazine HCl (Phenergan) 6.25 mg in 50.25 mls @ 201 mls/hr IV Q6H PRN PRN Reason: Nausea And Vomiting Stop: 11/10/24 06:47 Insulin Aspart (Insulin Aspart Per Unit Charge) 0 units SC ACHS [facility] Stop: 11/10/24 08:29 Last Admin: 10/12/24 12:12 Dose: Not Given Isosorbide Mononitrate (Isosorbide Mononitrate 20 Mg Tab) 120 mg PO QAM [facility] Stop: 11/10/24 11:14 Last Admin: 10/12/24 09:46 Dose: 120 mg Levetiracetam (Levetiracetam 500 Mg Tab) 500 mg PO BID [facility] Stop: 11/10/24 08:59 Last Admin: 10/12/24 09:47 Dose: 500 mg Levothyroxine Sodium (Levothyroxine Sodium 50 Mcg Tablet) 50 mcg PO DAILYBB [facility] Stop: 11/11/24 06:29 Last Admin: 10/12/24 06:34 Dose: 50 mcg Lorazepam (Lorazepam 2 Mg/1 Ml Vial) 1 mg IV ONE PRN; Protocol PRN Reason: EtoH Withdrawal AWSS 6-10 Miscellaneous (Carbohydrates For Hypoglycemia ) 15 - 30 gm PO UD PRN PRN Reason: Hypoglycemia Protocol Stop: 11/10/24 08:27 Oxybutynin Chloride (Oxybutynin Chloride Xl 5 Mg Tabcr) 10 mg PO DAILY [facility] Stop: 11/10/24 08:59 Last Admin: 10/12/24 09:47 Dose: 10 mg Oxycodone HCl (Oxycodone Hcl Ir 5 Mg Tab (Immediate Release)) 5 mg PO Q4H PRN PRN Reason: Pain Stop: 10/25/24 06:47 Sacubitril/Valsartan (Valsartan/Sacubitril 51/49 Mg Tab) 1 tab PO BID [facility] Stop: 11/10/24 08:59 Last Admin: 10/12/24 09:47 Dose: 1 tab Thiamine HCl (Thiamine Hcl 100 Mg Tab) 100 mg PO QAM [facility] Stop: 11/11/24 08:59 Last Admin: 10/12/24 09:45 Dose: 100 mg (1) Chest pain Chest pain type: precordial pain Qualified Code(s): R07.2 - Precordial pain
--- NOTE | 2024-10-12 16:49 | Cardiac Catheterization ---
ACC Data: Tanning Wheel Filler Cardiac Status Clinical evaluation leading to the procedure Diagnostic Physicians Name: Gianni Pepper MD Cardiac Cath Procedure Full Procedure Date October 12, 2024 Pre-Procedure Diagnosis Pre-Procedure Diagnosis: Angina and CAD AUC Score AUC Score: 8 Post-Procedure Diagnosis Post-Procedure Diagnosis: Severe CAD Procedure(s) Performed Procedure(s) Performed: Coronary Angiography Pump Erector Gianni Pepper MD Telex Operator(s) Showers; Ruben Estimated Blood Loss Estimated Blood Loss: < 20 ml I attest to the content of the Intraoperative Record and any orders documented therein. Any exceptions are noted below. PG Care Time/CCT Total # of Minutes Spent Total Time Spent with Patient: Total time spent is greater than 50% in coordination of care (as documented) at patient's floor/unit and/or counseling patient:
--- NOTE | 2024-10-12 21:43 | Cardiac Catheterization ---
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 Cardiac Status Clinical evaluation leading to the procedure CAD Presenation: Unstable angina Anginal Classification: CCS IV Heart Failure: No Cardiogenic Shock within 24 Hours: No Cardiac Arrest within 24 Hours: No Imaging Studies Past 6 Months: Yes Stress Studies Past 6 Months: No Coronary Anatomy Dominant: Right Diagnostic Physicians Name: Gianni Pepper MD Status: Elective Closure Device Percutaneous Entry Location: Radial Recommendations: PCI without planned CABG Cardiac Cath Procedure Full Procedure Date October 12, 2024 Pre-Procedure Diagnosis Pre-Procedure Diagnosis: Angina and CAD AUC Score AUC Score: 7 Post-Procedure Diagnosis Post-Procedure Diagnosis: Severe CAD Procedure(s) Performed Procedure(s) Performed: Coronary Angiography Sanding Machine Operator Gianni Pepper MD Dermatological Surgeon(s) Showers; Ruben Estimated Blood Loss Estimated Blood Loss: < 20 ml Medication(s) Medication(s): Fentanyl, Heparin, Lidocaine 1%, Nicardipine and Versed Summary of Findings Procedure: 1. Coronary angiography 2. Moderate sedation Indication: Mrs. Painter is a pleasant 69-year-old female with CAD s/p LAD and RCA PCI, type 2 diabetes, high-grade AV block s/p biventricular ICD, cardiomyopathy, paroxysmal ventricular tachycardia, paroxysmal atrial fibrillation, LBBB, hypertension, and dyslipidemia. She has been experiencing angina with elevated troponin. Coronary angiography: 1. Left main: No significant CAD. 2. Left anterior descending: Proximal to mid LAD stents patent with mild in- stent restenosis. Mid LAD 30%. Distal LAD 40-50%. Small caliber D1 ostial 80%, originating from proximal to mid LAD stents. At distal aspect of previous mid LAD stent, small caliber D2 with ostial 70%. SASHA-3 flow throughout. 3. Circumflex: Early mid circumflex 70%. Mid circumflex 40%. Distal circumflex 40%. Small caliber high OM1 with ostial to proximal diffuse 50-60%. Medium to large caliber OM 2 proximal 80-90% and mid 90%. SASHA III flow. 4. Right coronary artery: RCA is large and dominant. 95% stenosis at distal aspect of previously placed mid RCA stent. SASHA-[address] without significant CAD. 5. Ramus intermedius: Small caliber vessel. Proximal ramus 100%. Left to left collaterals, partially filling distal ramus. Moderate sedation: 1. Sedation start time: 2:21 PM 2. Sedation end time: 2:41 PM Procedural Notes: 1. Procedure was performed via the left radial artery without known complication. Impression: 1. Severe CAD involving RCA, circumflex/OM 2 and otherwise small branch vessels (D1, D2, ramus, high OM1). 2. Patent proximal to mid LAD stents with mild in-stent restenosis. Plan: 1. Dr. Gentile of interventional cardiology was asked to consider PCI of RCA +/- circumflex/OM 2. 2. Cardiac rehab. Hemodynamics Rest Ao:: 100/50 Final Ao: 101/51 LV: n/a Recommendations Recommendations: PCI without planned CABG Specimens Specimens: None Radiation Exposure (mGy) 480 mGy. Fluoro time 4.8 min. Contrast (mls) 35 ml Procedural Complication(s) None Disposition remained in labor economist for PCI attempt I attest to the content of the Intraoperative Record and any orders documented therein. Any exceptions are noted below. [facility] Card Cath Procedure Codes Cardiac Catheterization Procedure 1: Cardiovascular Cath Procedures: 95618 Coronaries Moderate Sedation Procedure 1: Sedation/Anesthesia: 33729 Mod Sedation by the same physician;Init15 Min Child Age 5 & Up Procedure 2: Sedation/Anesthesia: 87644 Mod Sedation by the same physician; Ea [id number] Minutes PG Care Time/CCT Total # of Minutes Spent Total Time Spent with Patient: Total time spent is greater than 50% in coordination of care (as documented) at patient's floor/unit and/or counseling patient:
--- NOTE | 2024-10-13 06:12 | Electrocardiogram Report ---
Test Reason : Blood Pressure : */* mmHG Vent. Rate : 64 BPM Atrial Rate : 64 BPM P-R Int : * ms QRS Dur : 164 ms QT Int : 502 ms P-R-T Axes : 64 -66 57 degrees QTcB Int : 517 ms Atrial-sensed ventricular-paced rhythm Abnormal ECG When compared with ECG of 11-Oct-2024 05:20, Vent. rate has decreased by 18 bpm Confirmed by Gianni Pepper ([id number]) on 10/13/2024 6:12:23 AM Referred By: REFERRED SELF Confirmed By: Gianni Pepper
[2024-10-13 06:51] LABS: Hematocrit (blood only) 31.9 % (37.0-47.0); Hemoglobin 10.6 g/dl (12.0-16.0); Mean Corpuscular Hemoglobin 28.2 pg (25.0-34.0); Mean Corpuscular Hgb Conc 33.2 g/dL (32.0-36.0); Mean Corpuscular Volume 84.8 fL (80.0-100.0); Mean Platelet Volume 10.5 fL (9.4-12.4); Platelet Count 117 K/uL (130-400); RDW Coefficient of Variation 13.7 % (11.5-14.5); RDW Standard Deviation 42.1 fL (36.4-46.3); Red Blood Count 3.76 M/uL (4.20-5.40); White Blood Count 4.84 K/ul (4.8-10.8)
[2024-10-13 07:11] LABS: Calcium 8.7 mg/dl (8.6-10.3); Creatinine Clr Calc Pharmacy 44.4 ml/min; Magnesium 1.7 mg/dl (1.7-2.4); Phosphorus 3.1 mg/dl (2.5-4.9); Potassium 4.2 mmol/L (3.5-5.1)
--- NOTE | 2024-10-13 07:30 | Communication Note ---
Date of Service: October 13, 2024 Entresto was held last night for Soft BP. Thanks
--- NOTE | 2024-10-13 09:13 | Cardiology Progress Note ---
Date of Service October 13, 2024 Assessment & Plan (1) Coronary artery disease: (2) S/P coronary artery stent placement: (3) Cardiomyopathy: (4) ICD (implantable cardioverter-defibrillator), biventricular, in situ: (5) Chest pain: Plan ASSESSMENT/PLAN: 1. CAD s/p LAD and RCA PCI: No recurrent angina. Underwent PCI of her RCA on 10/12/2024. She would like to undergo PCI of her circumflex/OM. We discussed treatment options such as medical therapy versus PCI. She and her (discussed via telephone) both agree that they would prefer PCI. Dr. Gentile of interventional cardiology plans on attempting PCI later today, barring emergencies and lab availability. This procedure is nonurgent. Continue aspirin 81 mg daily. Continue Plavix 75 mg daily. Indefinite dual antiplatelet therapy recommended by interventional cardiology. Continue beta-jus as tolerated. Continue high intensity statin therapy. 2. Chest pain: No recurrent angina. Planned staged PCI as noted above. Carvedilol reduced in September 2024 by her PCP due to hypotension in the office. Continue nitrate therapy. 3. Ischemic cardiomyopathy: LV systolic function has improved after PCI of LAD. She appears euvolemic. Continue ARNI and beta-jus. Has followed in the heart failure program. NYHA class I. 4. Biventricular ICD: Follows with electrophysiology. Reportedly interrogated within the past couple of weeks in the ER without arrhythmia. 5. Dyslipidemia: LDL is not at goal. Added Zetia to high intensity statin therapy during this hospital stay. 6. Elevated troponin: As above. 7. Disposition: Cardiology will continue to follow. Plan of care communicated with Dr. Ledezma of the primary hospitalist service. Patient's contacted via telephone in regards to today's staged PCI. Admission and Anticipated Discharge Date Admission Date: October 11, 2024 Subjective Patient was seen this morning. She has not had any further angina. She denies shortness of breath, syncope, near syncope, palpitations. She would like to undergo PCI of her circumflex/marginal system. She was unaccompanied. Physical Exam Physical Exam: Gen.: No acute distress. Alert. Oriented x 3. HEENT: Anicteric sclera. Neck: No JVD. Cardiac: Regular. Normal S1-S2. No murmurs, rubs, or gallops. Pulmonary: Clear to auscultation bilaterally without wheezes, rales, or rhonchi. Abdomen: Soft, nontender, nondistended, with normoactive bowel sounds. No bruits noted. Extremities: 2+ left radial pulse. Left radial cath site was clean, dry, and intact without erythema or discharge. Right radial pulse nonpalpable. 2+ posterior tibialis pulses bilaterally. No edema or cyanosis. Results & Data Vital Signs (Past 12 Hours) Vital Signs Temp Pulse Pulse Pulse Resp BP Pulse Ox 10/13/24 08:30 74 10/13/24 08:29 36.9 C 69 17 107/62 95 10/13/24 03:20 36.6 C 67 16 107/66 97 10/13/24 00:59 69 121/69 10/13/24 00:00 69 10/13/24 00:00 10/12/24 22:53 36.6 C 68 17 112/68 96 O2 Del Method 10/13/24 08:30 10/13/24 08:29 Room Air 10/13/24 03:20 Room Air 10/13/24 00:59 10/13/24 00:00 10/13/24 00:00 Room Air 10/12/24 22:53 Room Air Laboratory Results Laboratory Results - last 24 hr 10/12/24 10/12/24 10/12/24 05:52 12:03 15:15 WBC RBC Hgb Hct MCV MCH MCHC RDW Std Deviation RDW Coeff of Chucky Plt Count MPV Activ Coag Time Kaolin 302 H Sodium Potassium Chloride Carbon Dioxide Anion Gap BUN Creatinine Est Cr Clr Drug Dosing eGFR BUN/Creatinine Ratio Glucose POC Glucose 123 H Calcium Phosphorus Magnesium Troponin I High Sens 63.5 H* D 10/12/24 10/12/24 10/13/24 16:56 20:23 05:50 WBC 4.84 RBC 3.76 L Hgb 10.6 L Hct 31.9 L MCV 84.8 MCH 28.2 MCHC 33.2 RDW Std Deviation 42.1 RDW Coeff of Chucky 13.7 Plt Count 117 L MPV 10.5 Activ Coag Time Kaolin Sodium 138 Potassium 4.2 Chloride 106 Carbon Dioxide 27 Anion Gap 5 BUN 24 H Creatinine 1.00 Est Cr Clr Drug Dosing 44.4 eGFR 60.23 BUN/Creatinine Ratio 24.0 H Glucose 107 H POC Glucose 183 H 162 H Calcium 8.7 Phosphorus 3.1 Magnesium 1.7 Troponin I High Sens 10/13/24 08:19 WBC RBC Hgb Hct MCV MCH MCHC RDW Std Deviation RDW Coeff of Chucky Plt Count MPV Activ Coag Time Kaolin Sodium Potassium Chloride Carbon Dioxide Anion Gap BUN Creatinine Est Cr Clr Drug Dosing eGFR BUN/Creatinine Ratio Glucose POC Glucose 119 H Calcium Phosphorus Magnesium Troponin I High Sens Diagnostic Findings Labs personally reviewed and notable for stable renal function, normal potassium, mild anemia, stable mild thrombocytopenia, normal magnesium. ECG personally reviewed 10/12/2024 at 1538: Atrial sensed, ventricular paced. 64 bpm. Telemetry personally reviewed: Atrial sensed and ventricular paced. Cardiac cath 10/12/2024: Coronary angiography: 1. Left main: No significant CAD. 2. Left anterior descending: Proximal to mid LAD stents patent with mild in- stent restenosis. Mid LAD 30%. Distal LAD 40-50%. Small caliber D1 ostial 80%, originating from proximal to mid LAD stents. At distal aspect of previous mid LAD stent, small caliber D2 with ostial 70%. SASHA-3 flow throughout. 3. Circumflex: Early mid circumflex 70%. Mid circumflex 40%. Distal circumflex 40%. Small caliber high OM1 with ostial to proximal diffuse 50-60%. Medium to large caliber OM 2 proximal 80-90% and mid 90%. SASHA III flow. 4. Right coronary artery: RCA is large and dominant. 95% stenosis at distal aspect of previously placed mid RCA stent. SASHA-[address] without significant CAD. 5. Ramus intermedius: Small caliber vessel. Proximal ramus 100%. Left to left collaterals, partially filling distal ramus. Interventional procedure: 1. Successful PCI of mid RCA with single drug-eluting stent (3.0 x 22 mm Rui; postdilated with 3.5 NC). Medications Administered Current Inpatient Medications Acetaminophen (Acetaminophen 325 Mg Tab) 650 mg PO QID PRN PRN Reason: pain/fever Stop: 11/10/24 07:38 Aspirin (Aspirin 81 Mg Ectab) 81 mg PO QAM [facility] Stop: 11/11/24 08:59 Last Admin: 10/13/24 08:59 Dose: 81 mg Atorvastatin Calcium (Atorvastatin 40 Mg Tab) 80 mg PO DAILY [facility] Stop: 11/10/24 08:59 Last Admin: 10/13/24 08:59 Dose: 80 mg Carvedilol (Carvedilol 6.25 Mg Tab) 6.25 mg PO BID [facility] Stop: 11/10/24 08:59 Last Admin: 10/13/24 08:58 Dose: 6.25 mg Clopidogrel Bisulfate (Clopidogrel Bisulfate 75 Mg Tab) 75 mg PO QAM [facility] Stop: 11/11/24 08:59 Last Admin: 10/13/24 08:59 Dose: 75 mg Dextrose (Dextrose 50% 50 Ml Syringe) 25 - 50 ml IV UD PRN; Protocol PRN Reason: Hypoglycemia Protocol Stop: 11/10/24 08:27 Ezetimibe (Ezetimibe 10 Mg Tab) 10 mg PO [facility] Stop: 11/11/24 08:59 Last Admin: 10/13/24 08:58 Dose: 10 mg Enoxaparin Sodium (Enoxaparin Inj 30 Mg/0.3 Ml Syr) 30 mg SQ [facility] Stop: 11/10/24 08:59 Last Admin: 10/13/24 08:58 Dose: 30 mg Gabapentin (Gabapentin 100 Mg Cap) 100 mg PO HS [facility] Stop: 11/10/24 20:59 Last Admin: 10/12/24 21:35 Dose: 100 mg Glucagon (Glucagon For Inj 1 Mg Vial) 1 mg SQ UD PRN; Protocol PRN Reason: Hypoglycemia Protocol Stop: 11/10/24 08:27 Glucose (Glucose 40% Gel 15 Gm Tube) 15 - 30 gm PO UD PRN; Protocol PRN Reason: Hypoglycemia Protocol Stop: 11/10/24 08:27 Glucose (Glucose 10 Tab/Tube) 4 - 8 tab PO UD PRN; Protocol PRN Reason: Hypoglycemia Protocol Stop: 11/10/24 08:27 Promethazine HCl (Phenergan) 6.25 mg in 50.25 mls @ 201 mls/hr IV Q6H PRN PRN Reason: Nausea And Vomiting Stop: 11/10/24 06:47 Insulin Aspart (Insulin Aspart Per Unit Charge) 0 units SC [facility] Stop: 11/10/24 08:29 Last Admin: 10/13/24 08:57 Dose: 3 units Isosorbide Mononitrate (Isosorbide Mononitrate 20 Mg Tab) 120 mg PO [facility] Stop: 11/10/24 11:14 Last Admin: 10/13/24 09:00 Dose: 120 mg Levetiracetam (Levetiracetam 500 Mg Tab) 500 mg PO BID [facility] Stop: 11/10/24 08:59 Last Admin: 10/13/24 08:59 Dose: 500 mg Levothyroxine Sodium (Levothyroxine Sodium 50 Mcg Tablet) 50 mcg PO DAILYBB [facility] Stop: 11/11/24 06:29 Last Admin: 10/13/24 06:07 Dose: 50 mcg Lorazepam (Lorazepam 2 Mg/1 Ml Vial) 1 mg IV ONE PRN; Protocol PRN Reason: EtoH Withdrawal AWSS 6-10 Magnesium Oxide (Magnesium Oxide 400 Mg Tab) 400 mg PO QAM [facility] Stop: 11/12/24 08:59 Miscellaneous (Carbohydrates For Hypoglycemia ) 15 - 30 gm PO UD PRN PRN Reason: Hypoglycemia Protocol Stop: 11/10/24 08:27 Oxybutynin Chloride (Oxybutynin Chloride Xl 5 Mg Tabcr) 10 mg PO DAILY [facility] Stop: 11/10/24 08:59 Last Admin: 10/13/24 08:59 Dose: 10 mg Oxycodone HCl (Oxycodone Hcl Ir 5 Mg Tab (Immediate Release)) 5 mg PO Q4H PRN PRN Reason: Pain Stop: 10/25/24 06:47 Sacubitril/Valsartan (Valsartan/Sacubitril 51/49 Mg Tab) 1 tab PO BID [facility] Stop: 11/10/24 08:59 Last Admin: 10/13/24 08:58 Dose: 1 tab Thiamine HCl (Thiamine Hcl 100 Mg Tab) 100 mg PO QAM [facility] Stop: 11/11/24 08:59 Last Admin: 10/13/24 08:59 Dose: 100 mg PG Care Time/CCT Total # of Minutes Spent Total Time Spent with Patient: Total time spent is greater than 50% in coordination of care (as documented) at patient's floor/unit and/or counseling patient: Coding Level of Care Code 22694 SUB INP/OBS CARE 3/50MIN Diagnoses Coronary artery disease I25.10 S/P coronary artery stent placement Z95.5 Cardiomyopathy I42.9 ICD (implantable cardioverter-defibrillator), biventricular, in situ Z95.810 Chest pain, unspecified type R07.9
[2024-10-13] MEDS: MAGNESIUM OXIDE 400 MG TAB PO SCH (10:00)
--- NOTE | 2024-10-13 12:44 | Hospitalist Progress Note ---
Date of Service October 13, 2024 Assessment & Plan (1) Chest pain: Plan: Chest pain History CAD status post stent Possible unstable angina NSTEMI Admitted to PCU Continued aspirin, beta-jus, statin Rx on admission Repeat troponin; TTE obtained Cardiology consulted re: chest pain, history of CAD (Patient known to [facility] - started back on Plavix, started Zetia Pt went for cardiac cath yesterday (10/12/2024) S/p Successful PCI of mid RCA with single drug-eluting stent (3.0 x 22 mm Rui; postdilated with 3.5 NC) w/ Dr. Gentile (10/12/2024) Discussed w/ cardiology today (10/13/2024) - plan for another PCI today Chronic conditions chronic diastolic heart failure EF (55%, TTE 2024), some congestion on imaging on admission, cardiology consulted, as above SSS status post PPM, paced rhythm ILD, patient [place] [facility] hypertension, currently stable, possible BP elevation at home as per hyperlipidemia, on statin Rx, now on Zetia per cardiology DM 2 on oral medications, well-controlled as of recent hemoglobin A1c of 6.11 July 2024 , ISS BSG goal 110-140 hypothyroidism, euthyroid as of recent outpatient TSH dementia, patient mentating at baseline seizure disorder, stable on regimen chronic anemia, hemoglobin better than baseline alcohol abuse, Elevated SS at risk protocol, DT precautions past tobacco abuse DVT prophylaxis. lovenox DNR as per patient Patient's - Mr. John Painter, ([id number]) Admission and Anticipated Discharge Date Admission Date: October 11, 2024 Subjective Pt seen in follow up of chest pain s/p cardiac cath yesterday, pci to rca Currently lying in bed in NAD, reports feeling well today, denies any chest pain, shortness of breath, dizziness or palpitations no abd. pain, n/v Contacted by electrician technician to have pt NPO as she is likely to have another pci today. Review of Systems Review of Systems: All systems reviewed & are unremarkable except as noted in Subjective Physical Exam Physical Exam: GENERAL: WD/WN F in NAD, hard of hearing HEENT: NC/AT, pale palpebral conjunctivae, no ptosis NECK : Supple, no tenderness CHEST : Decreased breath sounds, no tenderness HEART : RRR, no obvious murmurs ABDOMEN: nontender, soft EXTREMITIES : No LE swelling/tenderness, no LE edema, moves extremities NEUROLOGIC : awake, alert, no facial asymmetry, hard of hearing, gait and stance time not assessed SKIN: Pallor, warm Results & Data Results & Data Vital Signs (Past 12 Hours) Vital Signs Temp Pulse Pulse Pulse Resp BP Pulse Ox 10/13/24 11:29 36.4 C L 67 18 117/68 97 10/13/24 10:28 10/13/24 08:30 74 10/13/24 08:29 36.9 C 69 17 107/62 95 10/13/24 03:20 36.6 C 67 16 107/66 97 10/13/24 00:59 69 121/69 O2 Del Method 10/13/24 11:29 Room Air 10/13/24 10:28 Room Air 10/13/24 08:30 10/13/24 08:29 Room Air 10/13/24 03:20 Room Air 10/13/24 00:59 Laboratory Results 10/13/24 10/13/24 10/13/24 Range/Units 11:50 08:19 05:50 WBC 4.84 (4.8-10.8) K/ul RBC 3.76 L (4.20-5.40) M/uL Hgb 10.6 L (12.0-16.0) g/dl Hct 31.9 L (37.0-47.0) % MCV 84.8 (80.0-100.0) fL MCH 28.2 (25.0-34.0) pg MCHC 33.2 (32.0-36.0) g/dL RDW Std Deviation 42.1 (36.4-46.3) fL RDW Coeff of Chucky 13.7 (11.5-14.5) % Plt Count 117 L (130-400) K/uL MPV 10.5 (9.4-12.4) fL Activ Coag Time Kaolin (94-140) SECONDS Sodium 138 (136-145) mmol/L Potassium 4.2 (3.5-5.1) mmol/L Chloride 106 (98-107) mmol/L Carbon Dioxide 27 (21-32) mmol/L Anion Gap 5 (3-11) BUN 24 H (6-23) mg/dl Creatinine 1.00 (0.6-1.2) mg/dl Est Cr Clr Drug Dosing 44.4 ml/min eGFR 60.23 BUN/Creatinine Ratio 24.0 H (10-20) Glucose 107 H (70-99(Fasting)) mg/dl POC Glucose 150 H 119 H (70-99) mg/dl Calcium 8.7 (8.6-10.3) mg/dl Phosphorus 3.1 (2.5-4.9) mg/dl Magnesium 1.7 (1.7-2.4) mg/dl 10/12/24 10/12/24 10/12/24 Range/Units 20:23 16:56 15:15 WBC (4.8-10.8) K/ul RBC (4.20-5.40) M/uL Hgb (12.0-16.0) g/dl Hct (37.0-47.0) % MCV (80.0-100.0) fL MCH (25.0-34.0) pg MCHC (32.0-36.0) g/dL RDW Std Deviation (36.4-46.3) fL RDW Coeff of Chucky (11.5-14.5) % Plt Count (130-400) K/uL MPV (9.4-12.4) fL Activ Coag Time Kaolin 302 H (94-140) SECONDS Sodium (136-145) mmol/L Potassium (3.5-5.1) mmol/L Chloride (98-107) mmol/L Carbon Dioxide (21-32) mmol/L Anion Gap (3-11) BUN (6-23) mg/dl Creatinine (0.6-1.2) mg/dl Est Cr Clr Drug Dosing ml/min eGFR BUN/Creatinine Ratio (10-20) Glucose (70-99(Fasting)) mg/dl POC Glucose 162 H 183 H (70-99) mg/dl Calcium (8.6-10.3) mg/dl Phosphorus (2.5-4.9) mg/dl Magnesium (1.7-2.4) mg/dl Medications Administered Current Inpatient Medications Acetaminophen (Acetaminophen 325 Mg Tab) 650 mg PO QID PRN PRN Reason: pain/fever Stop: 11/10/24 07:38 Aspirin (Aspirin 81 Mg Ectab) [facility] Stop: 11/11/24 08:59 Last Admin: 10/13/24 08:59 Dose: 81 mg Atorvastatin Calcium (Atorvastatin 40 Mg Tab) 80 mg PO DAILY [facility] Stop: 11/10/24 08:59 Last Admin: 10/13/24 08:59 Dose: 80 mg Carvedilol (Carvedilol 6.25 Mg Tab) 6.25 mg PO BID [facility] Stop: 11/10/24 08:59 Last Admin: 10/13/24 08:58 Dose: 6.25 mg Clopidogrel Bisulfate (Clopidogrel Bisulfate 75 Mg Tab) 75 mg PO QAM [facility] Stop: 11/11/24 08:59 Last Admin: 10/13/24 08:59 Dose: 75 mg Dextrose (Dextrose 50% 50 Ml Syringe) 25 - 50 ml IV UD PRN; Protocol PRN Reason: Hypoglycemia Protocol Stop: 11/10/24 08:27 Ezetimibe (Ezetimibe 10 Mg Tab) [facility] Stop: 11/11/24 08:59 Last Admin: 10/13/24 08:58 Dose: 10 mg Enoxaparin Sodium (Enoxaparin Inj 30 Mg/0.3 Ml Syr) 30 mg SQ QAM [facility] Stop: 11/10/24 08:59 Last Admin: 10/13/24 08:58 Dose: 30 mg Gabapentin (Gabapentin 100 Mg Cap) 100 mg PO HS [facility] Stop: 11/10/24 20:59 Last Admin: 10/12/24 21:35 Dose: 100 mg Glucagon (Glucagon For Inj 1 Mg Vial) 1 mg SQ UD PRN; Protocol PRN Reason: Hypoglycemia Protocol Stop: 11/10/24 08:27 Glucose (Glucose 40% Gel 15 Gm Tube) 15 - 30 gm PO UD PRN; Protocol PRN Reason: Hypoglycemia Protocol Stop: 11/10/24 08:27 Glucose (Glucose 10 Tab/Tube) 4 - 8 tab PO UD PRN; Protocol PRN Reason: Hypoglycemia Protocol Stop: 11/10/24 08:27 Promethazine HCl (Phenergan) 6.25 mg in 50.25 mls @ 201 mls/hr IV Q6H PRN PRN Reason: Nausea And Vomiting Stop: 11/10/24 06:47 Insulin Aspart (Insulin Aspart Per Unit Charge) 0 units SC [facility] Stop: 11/10/24 08:29 Last Admin: 10/13/24 08:57 Dose: 3 units Isosorbide Mononitrate (Isosorbide Mononitrate 20 Mg Tab) 120 mg PO QAM [facility] Stop: 11/10/24 11:14 Last Admin: 10/13/24 09:00 Dose: 120 mg Levetiracetam (Levetiracetam 500 Mg Tab) 500 mg PO BID [facility] Stop: 11/10/24 08:59 Last Admin: 10/13/24 08:59 Dose: 500 mg Levothyroxine Sodium (Levothyroxine Sodium 50 Mcg Tablet) 50 mcg PO DAILYBB [facility] Stop: 11/11/24 06:29 Last Admin: 10/13/24 06:07 Dose: 50 mcg Lorazepam (Lorazepam 2 Mg/1 Ml Vial) 1 mg IV ONE PRN; Protocol PRN Reason: EtoH Withdrawal AWSS 6-10 Magnesium Oxide (Magnesium Oxide 400 Mg Tab) 400 mg PO QAM [facility] Stop: 11/12/24 08:59 Last Admin: 10/13/24 10:00 Dose: 400 mg Miscellaneous (Carbohydrates For Hypoglycemia ) 15 - 30 gm PO UD PRN PRN Reason: Hypoglycemia Protocol Stop: 11/10/24 08:27 Oxybutynin Chloride (Oxybutynin Chloride Xl 5 Mg Tabcr) 10 mg PO DAILY [facility] Stop: 11/10/24 08:59 Last Admin: 10/13/24 08:59 Dose: 10 mg Oxycodone HCl (Oxycodone Hcl Ir 5 Mg Tab (Immediate Release)) 5 mg PO Q4H PRN PRN Reason: Pain Stop: 10/25/24 06:47 Sacubitril/Valsartan (Valsartan/Sacubitril 51/49 Mg Tab) 1 tab PO BID [facility] Stop: 11/10/24 08:59 Last Admin: 10/13/24 08:58 Dose: 1 tab Thiamine HCl (Thiamine Hcl 100 Mg Tab) 100 mg PO QAM [facility] Stop: 11/11/24 08:59 Last Admin: 10/13/24 08:59 Dose: 100 mg (1) Chest pain Chest pain type: precordial pain Qualified Code(s): R07.2 - Precordial pain
--- NOTE | 2024-10-13 13:18 | Post Anesthesia Assessment ---
Date of Service October 13, 2024 Post Sedation Assessment Vital Signs Temp Pulse Pulse Pulse Resp BP BP 10/13/24 16:22 68 10/13/24 11:29 97.5 F L 67 18 117/68 10/13/24 10:28 10/13/24 08:30 74 10/13/24 08:29 98.4 F 69 17 107/62 10/13/24 03:20 97.9 F 67 16 107/66 10/13/24 00:59 69 121/69 10/13/24 00:00 69 10/13/24 00:00 10/12/24 22:53 97.9 F 68 17 112/68 10/12/24 20:30 10/12/24 19:42 97.7 F 70 20 94/55 L 10/12/24 19:31 98.4 F 82 18 156/95 H 10/12/24 18:30 97.9 F 80 20 98/62 L Pulse Ox O2 Del Method 10/13/24 16:22 10/13/24 11:29 97 Room Air 10/13/24 10:28 Room Air 10/13/24 08:30 10/13/24 08:29 95 Room Air 10/13/24 03:20 97 Room Air 10/13/24 00:59 10/13/24 00:00 10/13/24 00:00 Room Air 10/12/24 22:53 96 Room Air 10/12/24 20:30 Room Air 10/12/24 19:42 96 Room Air 10/12/24 19:31 96 Room Air 10/12/24 18:30 96 Room Air Recovery Score Activity: Moves 4 extremities Respiration: Deep Breath/Cough Circulation: +/-20% PreAnes Value Consciousness: Fully Awake Oxygen Saturation: > 92% On Room Air Post Anesthesia Score: 10 Discharge Sedation Level of Care: Fast Track Phase II Post Sedation Plan On clinical assessment, the patient appears to have tolerated the sedation without complications. Patient is recovering as anticipated. Patient will continue to be monitored by nursing and may be discharged when sedation discharge criteria are met per below protocol. Upon Completions of procedure up to 15 minutes continue every 5 minute vital signs and the P.A.R. score; then discharge to a Phase I or Fast Track to Phase II per the following guidelines: * Discharge Patient to appropriate Phase II area if PAR is 8 or greater or return to pre- procedure baseline. The post - procedure orders will be as directed. * If PAR score is less than 8 or not return to pre-procedure baseline then patient will follow Phase I monitoring till PAR is reached for Phase II. The Phase I may be done in procedure room or may call to secure a Phase I area. * If naloxone or flumazenil are used for reversal, hold in Phase I for continued monitoring from when last reversal dose was given for a minimum of 60 minutes or longer pending the nurse and/or physician discretion of patient condition before discharge to Phase II. Please call the Sedation Physician to re-evaluate and complete post-note for discharge to Phase II area. Sedation Discharge Instructions to be given to the patient at discharge to home.
--- NOTE | 2024-10-13 13:18 | Pre Anesthesia Assessment ---
Date of Service October 13, 2024 Pre Sedation Assessment Vital Signs Temp Pulse Pulse Pulse Resp BP BP 10/13/24 11:29 97.5 F L 67 18 117/68 10/13/24 10:28 10/13/24 08:30 74 10/13/24 08:29 98.4 F 69 17 107/62 10/13/24 03:20 97.9 F 67 16 107/66 10/13/24 00:59 69 121/69 10/13/24 00:00 69 10/13/24 00:00 10/12/24 22:53 97.9 F 68 17 112/68 10/12/24 20:30 10/12/24 19:42 97.7 F 70 20 94/55 L 10/12/24 19:31 98.4 F 82 18 156/95 H 10/12/24 18:30 97.9 F 80 20 98/62 L 10/12/24 16:45 97.9 F 78 20 108/62 10/12/24 16:20 97.7 F 73 20 109/63 10/12/24 16:00 70 16 100/61 10/12/24 15:42 66 16 123/56 L 10/12/24 15:30 68 16 121/63 Pulse Ox O2 Del Method 10/13/24 11:29 97 Room Air 10/13/24 10:28 Room Air 10/13/24 08:30 10/13/24 08:29 95 Room Air 10/13/24 03:20 97 Room Air 10/13/24 00:59 10/13/24 00:00 10/13/24 00:00 Room Air 10/12/24 22:53 96 Room Air 10/12/24 20:30 Room Air 10/12/24 19:42 96 Room Air 10/12/24 19:31 96 Room Air 10/12/24 18:30 96 Room Air 10/12/24 16:45 96 Room Air 10/12/24 16:20 98 Room Air 10/12/24 16:00 96 Room Air 10/12/24 15:42 95 Room Air 10/12/24 15:30 95 Room Air Cardiovascular + regular rate Respiratory + respiratory effort normal Pre-Sedation Airway Assessment Smoking Status: Never smoker Hx Sleep Apnea: No Hx Difficult Intubation: No Short, Thick Neck: No Thyromental Distance: > or= 3.5 Finger Breadths Oral Cavity: + WNL Mallampati Class: III ASA: ASA3 NPO Status Date of Last Intake of Fluids: 10/11/24 Time of Last Intake of Fluids: 09:00 Last Oral Intake of Fluids Comment: sips with meds Date of Last Intake of Solid Food: 10/11/24 Time of Last Intake of Solid Foods: 18:00 Procedure Planning Contraindications for Sedation: none Current Medications Reviewed: Yes Notes The planned sedation has been discussed with the patient. Informed Consent was obtained. I have identified the patient, determined the appropriateness of lorraine tion and have assessed the patient immediately prior to the procedure. All medicine(s) and interventions are by my order.
[2024-10-13] MEDS: niCARdipine 2,000 MCG/20 ML SYR ONE (16:03)
[2024-10-13] MEDS: NITROGLYCERIN/D5W 100MCG/ML 20ML SYR ONE (16:03)
[2024-10-13] MEDS: IODIXANOL (VISIPAQUE) 320 MG/ML 100ML IV ONE (16:04)
[2024-10-13] MEDS: HEPARIN (PORCINE) 1000 UNIT/ML 10 ML (CATH LAB USE ONLY) ONE (17:07)
[2024-10-13] MEDS: fentaNYL citrate PF 100 MCG/2 ML VIAL ONE (17:07)
[2024-10-13] MEDS: MIDAZOLAM HCL 1 MG/ML 2ML VIAL ONE (17:08)
[2024-10-13] MEDS: OPTIRAY 350 ONE (17:08)
[2024-10-13] MEDS: ONDANSETRON INJ 2 MG/ML 2 ML VIAL ONE (17:09)
--- NOTE | 2024-10-13 17:22 | Cardiac Catheterization ---
[facility] Data: Head Rigger Cardiac Status Clinical evaluation leading to the procedure CAD Presenation: Non STEMI Diagnostic Physicians Name: Burt Gentile MD Closure Device Recommendations: PCI without planned CABG Cardiac Cath Procedure Full Procedure Date October 13, 2024 Pre-Procedure Diagnosis Pre-Procedure Diagnosis: Angina and CAD AUC Score AUC Score: 7 Post-Procedure Diagnosis Post-Procedure Diagnosis: Severe CAD, Successful PCI and Normal Intracardiac Pressures Procedure(s) Performed Procedure(s) Performed: Coronary Angiography, Left Heart Cath, Drug Eluting Stent and Procedure (Shockwave intravascular lithotripsy) Life Insurance Salesperson Burt Gentile MD Sales Representative Electric Service(s) [place] Estimated Blood Loss Estimated Blood Loss: < 20 ml Medication(s) Medication(s): Clopidogrel, Fentanyl, Heparin, Lidocaine 1%, Nicardipine, Nitroglycerin and Versed Summary of Findings Indication: Severe CAD. ACS. Post PCI to severe RCA disease yesterday. Back today for staged PCI of mid circumflex/OM2 Access: 6 Fr slender left radial artery Catheters: EBU 3.5 guide Findings: For full details of patient's coronary angiography please see cath report dictated by Dr. Pepper yesterday. Briefly, patient found to have 80% severe, calcified mid circumflex, proximal OM2 disease. Decision to proceed with PCI. LVEDP -7 -- PCI -- Antithrombotic therapy: Heparin, clopidogrel Procedure: Left main cannulated with EBU 3.5 guide Pre-procedure flow SASHA 3 Senior Communications Engineer 50 wire passed across lesion into distal OM 2 Mid circumflex to mid OM 2 dilated with 2.5 balloon Recalcitrant to compliant balloon With the aid of a GuideLiner circumflex/proximal OM2 dilated with 3.0 shockwave balloon (100 pulses). Second pilot [address] patrol 50 wire placed into distal AV groove circumflex Proximal to mid OM2 stented with 2.75 x 15 mm Rui NATI Second NATI (2.75 x 18 mm Rui) placed from earlymid circumflex just after takeoff of OM1 extending into OM 2 and overlapping proximal aspect of initial stent Stent post-dilated with 3.0 noncompliant balloon IC vasodilators administered for spasm Residual severe stenosis in jailed distal AV groove circumflex Senior Communications Engineer 50 from OM 2 pulled back and redirected across stent struts into AV groove circumflex Jailed distal AV groove circumflex dilated at stent struts with 2.0 balloon Additional IC vasodilators administered Post procedure SASHA 3 flow, stents well expanded with minimal residual stenosis. Mild to moderate residual stenosis in jailed AV groove circumflex but SASHA-3 flow. No other apparent cardiac complications. Arterial Closure: TR band Summary: 1. Successful PCI of earlymid circumflex to mid OM2 with 2 overlapping drug- eluting stents (2.75 x 18, 2.75 x 15 mm Rui; postdilated with 3.0 NC). Angioplasty of jailed distal AV groove circumflex through stent struts with 2.0 balloon Recommendations: To PCU for continued monitoring Continue dual-antiplatelet therapy for at least 1 year, likely extended in the setting of multivessel overlapping stents. Continue statin, and ASCVD risk factor modification Consult cardiac Rehab Hemodynamics Rest Ao:: 121/54/78 Final Ao: 140/60/91 LV: 125/8 Recommendations Recommendations: PCI without planned CABG Specimens Specimens: None Radiation Exposure (mGy) 2158 Contrast (mls) 60 Anesthesia Moderate 5589-3727 Procedural Complication(s) None Disposition PCU I attest to the content of the Intraoperative Record and any orders documented therein. Any exceptions are noted below. [facility] Card Cath Procedure Codes Cardiac Catheterization Procedure 1: Cardiovascular Cath Procedures: 24698 Left Heart Cath (+/-LV) Moderate Sedation Procedure 1: Sedation/Anesthesia: 09254 Mod Sedation by the same physician;Init15 Min Child Age 5 & Up Procedure 2: Sedation/Anesthesia: 57164 Mod Sedation by the same physician; Ea [id number] Minutes Angioplasty Procedure 1: Cardiovascular Angioplasty Procedures: 49710 Perq Trluml Coronry Lithotrp Stenting Procedure 1: Cardiovascular Stent Procedures: 77987 Perc transcatheter placement of intracoronary stent(s), with ang PG Care Time/CCT Total # of Minutes Spent Total Time Spent with Patient: Total time spent is greater than 50% in coordination of care (as documented) at patient's floor/unit and/or counseling patient:
[2024-10-14 02:23] VITALS: TEMP 98.1
[2024-10-14 05:46] LABS: Hemoglobin 10.2 g/dl (12.0-16.0); Mean Corpuscular Hemoglobin 27.9 pg (25.0-34.0); Mean Corpuscular Hgb Conc 32.9 g/dL (32.0-36.0); Mean Corpuscular Volume 84.9 fL (80.0-100.0); Mean Platelet Volume 10.7 fL (9.4-12.4); Platelet Count 113 K/uL (130-400); RDW Coefficient of Variation 13.6 % (11.5-14.5); RDW Standard Deviation 41.9 fL (36.4-46.3); Red Blood Count 3.65 M/uL (4.20-5.40)
[2024-10-14 05:56] LABS: BUN Creatinine Ratio 20.2 (10-20); Calcium 8.7 mg/dl (8.6-10.3); Creatinine Clr Calc Pharmacy 42.7 ml/min; Magnesium 1.8 mg/dl (1.7-2.4); Phosphorus 3.5 mg/dl (2.5-4.9); Potassium 4.3 mmol/L (3.5-5.1)
--- NOTE | 2024-10-14 06:42 | Cardiology Progress Note ---
Date of Service October 14, 2024 Assessment & Plan (1) Coronary artery disease: (2) S/P coronary artery stent placement: (3) Cardiomyopathy: (4) ICD (implantable cardioverter-defibrillator), biventricular, in situ: (5) Chest pain: Plan ASSESSMENT/PLAN: 1. CAD s/p LAD, RCA, Cx/OM2 PCI: No recurrent angina. Underwent PCI of her RCA on 10/12/2024 and PCI of circumflex into OM 2 on 10/13/2024 with 2 overlapping drug-eluting stents. Continue aspirin 81 mg daily. Continue Plavix 75 mg daily. Plavix should be continued for at least 1 year but likely extended given multivessel overlapping stents as per interventional cardiology. Continue beta- jus as tolerated. Continue high intensity statin therapy. 2. Chest pain: No recurrent angina. Carvedilol reduced in September 2024 by her PCP due to hypotension in the office. Continue nitrate therapy. 3. Ischemic cardiomyopathy: LV systolic function has improved after PCI of LAD in the past. She appears euvolemic. Continue ARNI and beta-jus. Has followed in the heart failure program. NYHA class I. 4. Biventricular ICD: Follows with electrophysiology. Reportedly interrogated within the past couple of weeks in the ER without arrhythmia. 5. Dyslipidemia: LDL is not at goal. Added Zetia to high intensity statin therapy during this hospital stay. 6. Elevated troponin: As above. 7. Disposition: Can be discharged home from a cardiology perspective. She remains hospitalized, Dr. Marquez will be on-call/covering afternoon today throughout the weekend. Plan of care communicated with Dr. Ledezma of the primary hospitalist service. Arrangements are being made for hospital follow-up in the cardiology office. She follows with Dr. Dailey. Admission and Anticipated Discharge Date Admission Date: October 11, 2024 Subjective Patient seen this morning. She denies chest pain, shortness of breath, syncope, near syncope, palpitations, or edema. She has no issues at her left radial cath site. She would like to go home today. She was unaccompanied. Physical Exam Physical Exam: Gen.: No acute distress. Alert. HEENT: Anicteric sclera. Neck: No JVD. Cardiac: Regular. Normal rate. Normal S1-S2. No murmurs, rubs, or gallops. Pulmonary: Clear to auscultation bilaterally without wheezes, rales, or rhonchi. Abdomen: Soft, nontender, nondistended, with normoactive bowel sounds. No bruits noted. Extremities: 2+ left radial pulse. Left radial cath site was clean, dry, and in tact without erythema or discharge. Right radial pulse nonpalpable. 2+ posterior tibialis pulses bilaterally. No edema or cyanosis. Results & Data Vital Signs (Past 12 Hours) Vital Signs Temp Pulse Pulse Resp BP BP Pulse Ox 10/14/24 02:21 36.7 C 79 17 117/72 92 10/14/24 01:01 72 10/13/24 23:28 36.6 C 71 16 122/72 94 10/13/24 20:15 10/13/24 19:39 36.4 C L 76 114/73 95 10/13/24 19:12 68 O2 Del Method 10/14/24 02:21 Room Air 10/14/24 01:01 10/13/24 23:28 Room Air 10/13/24 20:15 Room Air 10/13/24 19:39 Room Air 10/13/24 19:12 Laboratory Results Laboratory Results - last 24 hr 10/13/24 10/13/24 10/13/24 05:50 08:19 11:50 WBC 4.84 RBC 3.76 L Hgb 10.6 L Hct 31.9 L MCV 84.8 MCH 28.2 MCHC 33.2 RDW Std Deviation 42.1 RDW Coeff of Chucky 13.7 Plt Count 117 L MPV 10.5 Activ Coag Time Kaolin Sodium 138 Potassium 4.2 Chloride 106 Carbon Dioxide 27 Anion Gap 5 BUN 24 H Creatinine 1.00 Est Cr Clr Drug Dosing 44.4 eGFR 60.23 BUN/Creatinine Ratio 24.0 H Glucose 107 H POC Glucose 119 H 150 H Calcium 8.7 Phosphorus 3.1 Magnesium 1.7 10/13/24 10/13/24 10/13/24 16:18 17:32 20:22 WBC RBC Hgb Hct MCV MCH MCHC RDW Std Deviation RDW Coeff of Chucky Plt Count MPV Activ Coag Time Kaolin 279 H Sodium Potassium Chloride Carbon Dioxide Anion Gap BUN Creatinine Est Cr Clr Drug Dosing eGFR BUN/Creatinine Ratio Glucose POC Glucose 112 H 168 H Calcium Phosphorus Magnesium 10/14/24 05:16 WBC 4.70 L RBC 3.65 L Hgb 10.2 L Hct 31.0 L MCV 84.9 MCH 27.9 MCHC 32.9 RDW Std Deviation 41.9 RDW Coeff of Chucky 13.6 Plt Count 113 L MPV 10.7 Activ Coag Time Kaolin Sodium 136 Potassium 4.3 Chloride 106 Carbon Dioxide 26 Anion Gap 4 BUN 21 Creatinine 1.04 Est Cr Clr Drug Dosing 42.7 eGFR 57.46 BUN/Creatinine Ratio 20.2 H Glucose 113 H POC Glucose Calcium 8.7 Phosphorus 3.5 Magnesium 1.8 Diagnostic Findings Labs reviewed and notable for anemia, stable mild thrombocytopenia, stable renal function, normal potassium. Coronary angiography/PCI 10/13/2024: 1. Successful PCI of earlymid circumflex to mid OM2 with 2 overlapping drug- eluting stents (2.75 x 18, 2.75 x 15 mm Rui; postdilated with 3.0 NC). Angioplasty of jailed distal AV groove circumflex through stent struts with 2.0 balloon Medications Administered Current Inpatient Medications Acetaminophen (Acetaminophen 325 Mg Tab) 650 mg PO QID PRN PRN Reason: pain/fever Stop: 11/10/24 07:38 Aspirin (Aspirin 81 Mg Ectab) 81 mg PO QAM [facility] Stop: 11/11/24 08:59 Last Admin: 10/13/24 08:59 Dose: 81 mg Atorvastatin Calcium (Atorvastatin 40 Mg Tab) 80 mg PO DAILY ARTIE Stop: 11/10/24 08:59 Last Admin: 10/13/24 08:59 Dose: 80 mg Carvedilol (Carvedilol 6.25 Mg Tab) 6.25 mg PO BID ARTIE Stop: 11/10/24 08:59 Last Admin: 10/13/24 20:31 Dose: 6.25 mg Clopidogrel Bisulfate (Clopidogrel Bisulfate 75 Mg Tab) 75 mg PO QAM [facility] Stop: 11/11/24 08:59 Last Admin: 10/13/24 08:59 Dose: 75 mg Dextrose (Dextrose 50% 50 Ml Syringe) 25 - 50 ml IV UD PRN; Protocol PRN Reason: Hypoglycemia Protocol Stop: 11/10/24 08:27 Ezetimibe (Ezetimibe 10 Mg Tab) 10 mg PO QAM [facility] Stop: 11/11/24 08:59 Last Admin: 10/13/24 08:58 Dose: 10 mg Enoxaparin Sodium (Enoxaparin Inj 30 Mg/0.3 Ml Syr) 30 mg SQ QAM [facility] Stop: 11/10/24 08:59 Last Admin: 10/13/24 08:58 Dose: 30 mg Gabapentin (Gabapentin 100 Mg Cap) 100 mg PO HS [facility] Stop: 11/10/24 20:59 Last Admin: 10/13/24 20:31 Dose: 100 mg Glucagon (Glucagon For Inj 1 Mg Vial) 1 mg SQ UD PRN; Protocol PRN Reason: Hypoglycemia Protocol Stop: 11/10/24 08:27 Glucose (Glucose 40% Gel 15 Gm Tube) 15 - 30 gm PO UD PRN; Protocol PRN Reason: Hypoglycemia Protocol Stop: 11/10/24 08:27 Glucose (Glucose 10 Tab/Tube) 4 - 8 tab PO UD PRN; Protocol PRN Reason: Hypoglycemia Protocol Stop: 11/10/24 08:27 Promethazine HCl (Phenergan) 6.25 mg in 50.25 mls @ 201 mls/hr IV Q6H PRN PRN Reason: Nausea And Vomiting Stop: 11/10/24 06:47 Insulin Aspart (Insulin Aspart Per Unit Charge) 0 units SC ACHS [facility] Stop: 11/10/24 08:29 Last Admin: 10/13/24 20:36 Dose: 2 units Isosorbide Mononitrate (Isosorbide Mononitrate 20 Mg Tab) 120 mg PO QAM [facility] Stop: 11/10/24 11:14 Last Admin: 10/13/24 09:00 Dose: 120 mg Levetiracetam (Levetiracetam 500 Mg Tab) 500 mg PO BID [facility] Stop: 11/10/24 08:59 Last Admin: 10/13/24 20:31 Dose: 500 mg Levothyroxine Sodium (Levothyroxine Sodium 50 Mcg Tablet) 50 mcg PO DAILYBB [facility] Stop: 11/11/24 06:29 Last Admin: 10/14/24 06:33 Dose: 50 mcg Lorazepam (Lorazepam 2 Mg/1 Ml Vial) 1 mg IV ONE PRN; Protocol PRN Reason: EtoH Withdrawal AWSS 6-10 Magnesium Oxide (Magnesium Oxide 400 Mg Tab) 400 mg PO QAM [facility] Stop: 11/12/24 08:59 Last Admin: 10/13/24 10:00 Dose: 400 mg Miscellaneous (Carbohydrates For Hypoglycemia ) 15 - 30 gm PO UD PRN PRN Reason: Hypoglycemia Protocol Stop: 11/10/24 08:27 Oxybutynin Chloride (Oxybutynin Chloride Xl 5 Mg Tabcr) 10 mg PO DAILY [facility] Stop: 11/10/24 08:59 Last Admin: 10/13/24 08:59 Dose: 10 mg Oxycodone HCl (Oxycodone Hcl Ir 5 Mg Tab (Immediate Release)) 5 mg PO Q4H PRN PRN Reason: Pain Stop: 10/25/24 06:47 Sacubitril/Valsartan (Valsartan/Sacubitril 51/49 Mg Tab) 1 tab PO BID ARTIE Stop: 11/10/24 08:59 Last Admin: 10/13/24 20:31 Dose: 1 tab Thiamine HCl (Thiamine Hcl 100 Mg Tab) 100 mg PO QAM [facility] Stop: 11/11/24 08:59 Last Admin: 10/13/24 08:59 Dose: 100 mg PG Care Time/CCT Total # of Minutes Spent Total Time Spent with Patient: Total time spent is greater than 50% in coordination of care (as documented) at patient's floor/unit and/or counseling patient: Coding Level of Care Code 98662 SUB INP/OBS CARE 3/50MIN Diagnoses Coronary artery disease I25.10 S/P coronary artery stent placement Z95.5 Cardiomyopathy I42.9 ICD (implantable cardioverter-defibrillator), biventricular, in situ Z95.810 Chest pain, unspecified type R07.9
[2024-10-14 08:20] VITALS: BP 129/74; RESP 18; O2SAT 93
--- NOTE | 2024-10-14 10:28 | Discharge Summary ---
Date of Service October 14, 2024 Admission HPI Per Admitting Provider History obtained from patient, family, and records. Medical history significant for chronic diastolic heart failure EF (55%, TTE 2024), CAD status post stent, SSS status post PPM, history of PAF as per records, ILD, hypertension, hyperlipidemia, DM 2 on oral medications, hypothyroidism, dementia, seizure disorder, chronic anemia (baseline hemoglobin of 11), alcohol abuse, past tobacco abuse. Last confinement July 2024 for seizure-like activity versus syncope. Patient discharged on Keppra course. Recent ER visit 3 weeks ago for unresponsiveness, possible cardiac event. Patient discharged home from the ER after evaluation by hospitalist service. 2 weeks ago, patient noted intermittent substernal pain episodes at home even at rest. No unusual cough or SOB symptoms. No radiation. Patient compliant with home medications. Intermittent relief with nitro tablet intake at home. SBP 170s at home at 1 point as per . PCP aware of chest pain episode over the weekend. Patient taking pills prepared by home health as per . Left-sided chest pain last night. Patient denies SOB, headache symptoms. Chest pain relieved by nitro administration at the ER. Patient currently comfortable. Medical History as above Surgical History : BTL, cholecystectomy, PPM Family History : Heart disease, anxiety/mood disorder Personal/Social history : Non-smoker, alcohol abuse as per records, retired [employer] employee Admission Exam Per Admitting Provider GENERAL: Oriented to day, hard of hearing, no respiratory distress SKIN: Pallor, warm HEENT: pale palpebral conjunctivae, no ptosis, dry buccal mucosa NECK : Supple, no tenderness CHEST : Decreased breath sounds, no tenderness HEART : RRR, no obvious murmurs ABDOMEN: Some distention, nontender EXTREMITIES : No LE swelling/tenderness, no other conspicuous deformities noted NEUROLOGIC : Oriented,, no facial asymmetry, hard of hearing, gait and stance time not assessed Principal Diagnosis Chest pain, NSTEMI Discharge Exam GENERAL: WD/WN F in NAD, hard of hearing HEENT: NC/AT, pale palpebral conjunctivae, no ptosis NECK : Supple, no tenderness CHEST : Decreased breath sounds, no tenderness HEART : RRR, no obvious murmurs ABDOMEN: nontender, soft EXTREMITIES : No LE swelling/tenderness, no LE edema, moves extremities NEUROLOGIC : awake, alert, no facial asymmetry, hard of hearing, gait and stance time not assessed SKIN: Pallor, warm Discharge Data Allergies Allergy/AdvReac Type Severity Reaction Status Date / Time latex Allergy Intermediate HIVES Verified 09/23/24 17:09 penicillin V Allergy Intermediate Hives Verified 09/23/24 17:09 adhesive Allergy Mild SKIN Verified 09/23/24 17:09 IRRITATION metformin AdvReac Intermediate Diarrhea Verified 09/23/24 17:09 olanzapine [From Zyprexa] AdvReac Intermediate lethargy Verified 09/23/24 17:09 Consultations 10/11/24 06:10 ED Decision to Admit Stat 10/11/24 08:49 Consult Cardiology Routine Procedures Performed Operation Date: 10/13/24 14:30 Actual Procedures p Cineradiography w/Routine Exam - Burt Gentile MD p Drug Eluting Stent SGl Vessel - Burt Gentile MD s Perc Henson Coronary Lithotripsy - Burt Gentile MD Ordered Studies 10/12/24 10:17 CL Cath Imgs for PACS use only Stat 10/13/24 14:30 CL Cath Imgs for PACS use only Routine Hospital Course (1) Chest pain: Chest pain History CAD status post stent Possible unstable angina NSTEMI Admitted to PCU Continued aspirin, beta-jus, statin Rx on admission Repeat troponin; TTE obtained Cardiology consulted re: chest pain, history of CAD (Patient known to [facility].) - started back on Plavix, started Zetia S/p Successful PCI of mid RCA with single drug-eluting stent (3.0 x 22 mm Rui; postdilated with 3.5 NC) w/ Dr. Gentile (10/12/2024) S/p Successful PCI of earlymid circumflex to mid OM2 with 2 overlapping drug- eluting stents (2.75 x 18, 2.75 x 15 mm Crawford; postdilated with 3.0 NC). Angioplasty of jailed distal AV groove circumflex through stent struts with 2.0 balloon w/ Dr. Gentile (10/13/2024) Recommendations: Continue dual-antiplatelet therapy for at least 1 year, likely extended in the setting of multivessel overlapping stents. Continue statin, and ASCVD risk factor modification Consult cardiac Rehab Discussed w/ cardiology today (10/14/2024) - plan to discharge on Plavix, Zetia, in addition to her previous medications. Underwent PCI of her RCA on 10/12/2024 and PCI of circumflex into OM 2 on 10/13/2024 with 2 overlapping drug-eluting stents. Continue aspirin 81 mg daily. Continue Plavix 75 mg daily. Plavix should be continued for at least 1 year but likely extended given multivessel overlapping stents as per interventional cardiology. Continue beta-jus as tolerated. Continue high intensity statin therapy. Outpt cardiology follow up will be arranged. Chronic conditions chronic diastolic heart failure EF (55%, TTE 2024), some congestion on imaging on admission, cardiology consulted, as above SSS status post PPM, paced rhythm ILD, patient follows with [facility] sack repairer hypertension, currently stable, possible BP elevation at home as per hyperlipidemia, on statin Rx, now on Zetia per cardiology DM 2 on oral medications, well-controlled as of recent hemoglobin A1c of 6.11 July 2024 , ISS BSG goal 110-140 hypothyroidism, euthyroid as of recent outpatient TSH dementia, patient mentating at baseline seizure disorder, stable on regimen chronic anemia, hemoglobin better than baseline alcohol abuse, Elevated SS at risk protocol, DT precautions past tobacco abuse Patient's - Mr. John Painter, ([id number]) Total Time Total Time Spent Total Time Spent (In Minutes): 40 Discharge Plan Discharge Items Patient Disposition: Home - Home Health Services Reason For Visit: CP Discharge Diagnosis: Chest pain, NSTEMI Activity: Per Instructions section Non-emergency contact: Primary Care Provider, Specialist and [employer] Call non-emergency contact if: you have any medication questions and your symptoms worsen Follow-up/Referrals: Luzma Yu MD [Primary Care Provider] - (Date & Time 10/19/2024 12:40 PM Provider: Luzma Yu MD [facility], [facility] ) Diet: Carb Consistent or DM2 and Heart Healthy Addtl Attending Provider Instructions: Follow up with your primary care doctor and paper testing supervisor. The follow up appointment with your primary care doctor was scheduled for you for 10/19/2024. Take aspirin and plavix as prescribed. You were also started on Zetia (cholesterol medication). Read instructions below, from your paper testing supervisor, in detail - ACTIVITY RECOMMENDATIONS: Excess manipulation of the wrist should be avoided for the next 24-48 hours. * No lifting over 2 pounds (approximately a 1/2 gallon of milk) with the utilized arm for 24 hours. * No strenuous activity such as bowling or tennis for 3 days. * Keep the site of the procedure covered with a bandage for 24 hours. *You may shower the day after the procedure. Do not take a tub bath or submerge the puncture site in water for the next 3 days. *Do not operate any motorized equipment for 3 days. SPECIAL CARE INSTRUCTIONS: The site may be slightly bruised and sore following your procedure. Should any of the following occur, contact the Dr. who performed your procedure. 1. Redness/inflammation, swelling, chills, or fever, or colored drainage at procedure site within 3-7 days after your procedure. 2. Coldness, discoloration, ongoing numbness, severe pain, or swelling. Expect mild tingling of hand and tenderness at the puncture site for up to three days. If this persists beyond three days, or other symptoms develop, notify the Dr. who performed your procedure. BLEEDING: If the procedure site on your wrist begins to bleed, do not panic 1. Place 1 or 2 fingers firmly just slightly above the insertion site to stop the bleeding. You may be able to feel your pulse as you hold pressure. 2. Lift your finger after 5 minutes to see if the bleeding has stopped. 3. Once the bleeding has stopped, gently wipe the wrist area clean with a bandage. * If the bleeding from your wrist does not stop after 10 minutes, or if there is a large amount of bleeding or spurting, call 911 (do not drive yourself to the hospital). SKIN IRRITATION: * You may experience some redness and/or swelling in the area where radiation was administered. If any skin irritation occurs, please contact your family physician. FOLLOW UP VISIT: Keep any scheduled doctor appointments. Pending Studies at Discharge: No Stand-Alone Forms: My [employer], Smoking Cessation Medications and DC Order Prescriptions: New clopidogrel 75 mg Tablet 75 mg PO QAM Qty: 30 0RF ezetimibe 10 mg Tablet 10 mg PO QAM Qty: 30 0RF Continued Entresto 49-51 mg tablet 1 tab PO BID Qty: 90 3RF levothyroxine 50 mcg capsule 50 mcg PO DAILYBB nitroglycerin [Nitrostat] 0.4 mg Tablet, Sublingual 0.4 mg Sublingual DIRECTED PRN (Reason: Chest Pain) Rx Instructions: PLACE ONE TABLET UNDER THE TONGUE EVERY 5 MINUTES FOR UP TO 3 DOSES OVER 15 MINUTES IF NEEDED FOR CHEST PAIN. atorvastatin 80 mg tablet 80 mg PO DAILY acetaminophen [Tylenol Extra Strength] 500 mg Tablet 1,000 mg PO Q6H PRN (Reason: PAIN/FEVER) magnesium oxide 400 mg magnesium capsule 400 mg PO QAM aspirin 81 mg Tablet,Delayed Release (Dr/Ec) 81 mg PO QAM alendronate 70 mg tablet 70 mg PO WK isosorbide mononitrate 120 mg tablet extended release 24 hr 120 mg PO QAM solifenacin 10 mg tablet 10 mg PO DAILY thiamine HCl (vitamin B1) 100 mg Tablet 100 mg PO QAM Qty: 30 0RF gabapentin 100 mg capsule 100 mg PO HS carvedilol 6.25 mg tablet 6.25 mg PO BID levetiracetam [Keppra] 500 mg Tablet 500 mg PO BID Qty: 60 0RF Discharge Orders: Discharge Order (Routine); Ordered 10/14/24 Ordered By: Ancelmo Ledezma Admission Data Admit Date/Time: 10/11/24 20:36 Attending Provider: Ancelmo eLdezma Admit Provider: Akash Hawk Primary Care Provider: Luzma Yu Other Providers: Ariel Velazco; Rodrigo Caldwell; Sawyer Harry; José Marquez; Wilson Morales; López Dailey; Lemuel Ocasio Jr; Gianni Pepper; Zahra Eaton; Mary Munson; Burt Gentile; Burt Vega; Estefanía Martinez; Roberto Rose; Sammi Lobato; Roberto Gomez; Nathan Heller; Chetan Lacey; Akash Hawk; [facility]
[2024-10-14 10:46] VITALS: PULSE 69
== END 2024-10-14 11:23 | disposition home health service (06) | DRG 323 ==
LOC: ED 05:14 → 4W 05:14 → SUATTDRO 06:45 → 4W 08:11 → SUATTDRO 20:51
PROC: CLB.CCO (2024-10-12 14:00)

== ENCOUNTER 2025-02-28 15:45 | Inpatient (IN) ==
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
[2025-02-28 16:34] LABS: Hematocrit (blood only) 39.1 % (37.0-47.0); Hemoglobin 13.1 g/dl (12.0-16.0); Immature Granulocytes # (auto) 0.04 K/uL (0.01-0.20); Immature Granulocytes % (auto) 0.5 %; Mean Corpuscular Hemoglobin 28.1 pg (25.0-34.0); Mean Corpuscular Volume 83.9 fL (80.0-100.0); Platelet Count 176 K/uL (130-400); RDW Standard Deviation 44.2 fL (36.4-46.3); Red Blood Count 4.66 M/uL (4.20-5.40); White Blood Count 7.91 K/ul (4.8-10.8)
[2025-02-28 16:51] LABS: Alanine Aminotransferase 10.0 U/L (7-52); Albumin Globulin Ratio 1.4 (0.9-2); Alkaline Phosphatase 70.0 U/L (34-104); Anion Gap 9.0 (3-11); Bilirubin,Total 1.2 mg/dl (0.2-1.0); Blood Urea Nitrogen 10.0 mg/dl (6-23); Calcium 9.8 mg/dl (8.6-10.3); Carbon Dioxide 26.0 mmol/L (21-32); Chloride 101.0 mmol/L (98-107); Creatinine Clr Calc Pharmacy 39.4 ml/min; Globulin 3.2 gm/dl (2.5-4.0); Glucose 114.0 mg/dl (70-99(Fasting)); Potassium 4.1 mmol/L (3.5-5.1); Sodium 136.0 mmol/L (136-145); Total Protein 7.6 gm/dl (6.0-8.3)
[2025-02-28 17:00] LABS: INR 1.0 (0.9-1.1); Partial Thromboplastin Time 24 Seconds (21-31); Prothrombin Time 11.1 Seconds (9.0-12.0)
[2025-02-28] MEDS: ALBUT/IPRATROP 3MG/0.5MG NEB 3 ML VIAL NEB STA (17:22)
[2025-02-28] MEDS: SODIUM CHLORIDE 0.9% 500 ML IV ONE (17:22)
--- NOTE | 2025-02-28 17:22 | XRay Report ---
Clinical History: Cough Technique: A frontal view of the chest was obtained Comparison is made to the prior examination dated 10/11/2024 Findings: There has been partial resolution of the previously seen multifocal interstitial and alveolar infiltrates. The heart size is within normal limits. No pleural effusion or pneumothorax is seen. No fracture is noted. There is a left chest wall pacemaker device. There is a lumbar fusion Impression: Partial resolution of bilateral infiltrates, likely due to improving pneumonia Electronically signed by Carlos Grover 02-28-2025 5:22 PM
[2025-02-28 17:25] LABS: Chlamydia pneumoniae PCR Not Detected (NotDetected); Coronavirus 229E PCR Not Detected (NotDetected); Coronavirus CoV-2 (COVID19)PCR Not Detected (NotDetected); Coronavirus HKU1 PCR Not Detected (NotDetected); Coronavirus NL63 PCR Not Detected (NotDetected); Coronavirus OC43PCR Not Detected (NotDetected); Human Metapneumovirus PCR Not Detected (NotDetected); Parainfluenza Virus 1 PCR Not Detected (NotDetected); Parainfluenza Virus 2 PCR Not Detected (NotDetected); Parainfluenza Virus 3 PCR Not Detected (NotDetected); Parainfluenza Virus 4 PCR Not Detected (NotDetected); Respiratory Syncytial VirusPCR Not Detected (NotDetected); Rhinovirus/Enterovirus PCR Not Detected (NotDetected)
[2025-02-28] MEDS: AZITHROMYCIN 250 MG TAB PO ONE (18:02)
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
[2025-02-28 18:33] LABS: Appearance Urine Clear (Clear); Bacteria Urine Automated None Seen (None Seen); Cast Urine Automated 0-2 /lpf (0-2); Epithelial Cell Urine Auto 0-2 /hpf (0-2); Glucose Urine UA Negative (Negative); RBC Urine Automated 0-2 /hpf (0-2)
[2025-02-28] MEDS ORDERED: POLYETHYLENE (MIRALAX) 17 GM PACK PO PRN (21:39)
[2025-02-28] MEDS ORDERED: ONDANSETRON INJ 2 MG/ML 2 ML VIAL IV PRN (21:39)
[2025-02-28] MEDS: LORazepam 1 MG TAB PO PRN (22:49)
[2025-02-28] MEDS: cefTRIAXone SODIUM 1,000 MG/50 ML BAG IV SCH (22:50)
[2025-02-28] MEDS: levETIRAcetam 500 MG TAB PO SCH (22:50)
[2025-02-28] MEDS: HEPARIN SOD 5,000 UNIT/0.5 ML VIAL SQ SCH (22:50)
[2025-03-01] MEDS: LEVOTHYROXINE SODIUM 50 MCG TABLET PO SCH (06:22)
[2025-03-01 07:10] LABS: Hematocrit (blood only) 32.6 % (37.0-47.0); Hemoglobin 10.8 g/dl (12.0-16.0); Immature Granulocytes # (auto) 0.01 K/uL (0.01-0.20); Immature Granulocytes % (auto) 0.2 %; Mean Corpuscular Hemoglobin 28.1 pg (25.0-34.0); Mean Corpuscular Volume 84.9 fL (80.0-100.0); Platelet Count 123 K/uL (130-400); RDW Standard Deviation 45.1 fL (36.4-46.3); Red Blood Count 3.84 M/uL (4.20-5.40); White Blood Count 5.40 K/ul (4.8-10.8)
[2025-03-01 07:32] LABS: Anion Gap 6.0 (3-11); Blood Urea Nitrogen 11.0 mg/dl (6-23); Calcium 8.7 mg/dl (8.6-10.3); Carbon Dioxide 25.0 mmol/L (21-32); Chloride 107.0 mmol/L (98-107); Creatinine Clr Calc Pharmacy 46.4 ml/min; Potassium 3.6 mmol/L (3.5-5.1); Sodium 138.0 mmol/L (136-145)
[2025-03-01] MEDS: CLOPIDOGREL BISULFATE 75 MG TAB PO SCH (08:41)
[2025-03-01] MEDS: SERTRALINE HCL 50 MG TABLET PO SCH (08:41)
[2025-03-01] MEDS: AZITHROMYCIN 250 MG TAB PO SCH (08:41)
[2025-03-01] MEDS: ISOSORBIDE MONO EXTENDED REL 60 MG TABCR PO SCH (08:41)
[2025-03-01] MEDS: EZETIMIBE 10 MG TAB PO SCH (08:41)
[2025-03-01] MEDS: FOLIC ACID 1 MG TAB PO SCH (08:41)
[2025-03-01] MEDS: ATORVASTATIN 40 MG TAB PO SCH (08:41)
[2025-03-01] MEDS: THIAMINE HCL 100 MG TAB PO SCH (08:41)
[2025-03-01] MEDS: VALSARTAN/SACUBITRIL 51/49 MG TAB PO SCH (08:41)
[2025-03-01] MEDS: ASPIRIN 81 MG ECTAB PO SCH (08:42)
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
[2025-03-01] MEDS: busPIRone 5 MG TAB PO PRN (14:46)
[2025-03-01] MEDS: ALBUT/IPRATROP 3MG/0.5MG NEB 3 ML VIAL NEB PRN (20:35)
[2025-03-02] MEDS: LORazepam 0.5 MG TAB PO STA (01:13)
[2025-03-02 06:55] LABS: Hematocrit (blood only) 32.2 % (37.0-47.0); Hemoglobin 11.3 g/dl (12.0-16.0); Mean Corpuscular Hemoglobin 29.0 pg (25.0-34.0); Mean Corpuscular Volume 82.6 fL (80.0-100.0); Platelet Count 126 K/uL (130-400); RDW Standard Deviation 43.4 fL (36.4-46.3); Red Blood Count 3.90 M/uL (4.20-5.40); White Blood Count 5.24 K/ul (4.8-10.8)
[2025-03-02 07:23] LABS: Anion Gap 7.0 (3-11); Blood Urea Nitrogen 11.0 mg/dl (6-23); Calcium 8.9 mg/dl (8.6-10.3); Carbon Dioxide 24.0 mmol/L (21-32); Chloride 104.0 mmol/L (98-107); Creatinine Clr Calc Pharmacy 46.4 ml/min; Glucose 127.0 mg/dl (70-99(Fasting)); Potassium 3.8 mmol/L (3.5-5.1); Sodium 135.0 mmol/L (136-145)
--- NOTE | 2025-03-02 14:56 | Hospitalist Progress Note ---
Date of Service March 02, 2025 Assessment & Plan (1) CAP (community acquired pneumonia): Plan pleasant 69F with PMH dementia, depression, CAD s/p LAD and RCA PCI, NIDDM , AV block s/p Bi-V AICD, Cardiomyopathy with EF 45%, Paroxysmal Ventricular Tachycardia, Paroxysmal Atrial Fibrillation, LBBB, Hypertension, and HLD who presents with cough, inability to care for self. #Moderate Dementia #Failure to Thrive -Lives in trailer by herself - 2 weeks ago and was caregiver for patient -Trailer is in deplorable condition -PCP started process for placement with department of aging -MOCA performed by this provider revealing score of 14/30, not alert to time, very poor short and medium term memory Plan: -patient will need rodent exterminator placement, discussed with case management -not safe to be discharged at this time -PT/OT ordered #Acute Grief #NADEEM -patient grieving loss of 2 weeks ago -complicated by moderate to severe dementia and underlying NADEEM Plan: -start scheduled buspar 10mg tid -psych laison and pastoral care consults, appreciate recs -psychiatry consult pending improvement with above interventions #CAP -Productive cough, subjective fevers, chills -CXR bilateral infiltrates. RHonchi bilaterally on exam -Viral panel negative -No O2 requirements -S/p azith in ED Plan -continue CAP coverage with CTX + azith (day 2/) -[employer]OR eval #Alcohol use -Patient denies frquent alcohol use but niece states she drinks around 4 alcoholic beverages daily -Monitor with CIWA protocol and prn ativan #CAD -Stable. follows with cardio as OP -No chest pain. EKG paced rhythm -Continue DAPT, high intensity statin #ICM -EF 50% on most recent TTE -SHe does not have a diagnosis of CHF -She looks euvolemic on exam -Continue home GDMT #NIDDM -DIet controlled. not on any meds #Hypothyroidism -TSH 0.7 on 02/06/25 -Continue home synthroid #Seizure disorder -COntinue home keppra #OAB -Vesicare not the best medication for someone with dementia -Hold for now #Depression -zoloft I spent a total of 50 minutes in direct patient care, including [id number] time with the patient and/or family, reviewing medical records, ordering and reviewing diagnostic tests, and coordinating care with other healthcare providers. This time includes: history taking, physical examination, medical decision making, counseling, ECG interpretation, imaging interpretation, lab i nterpretation, orders, and education, excluding time spent in the performance of separately billed services. Admission and Anticipated Discharge Date Admission Date: March 01, 2025 Subjective Patient seen and examined at bedside. Patient tearful and grieving loss of her . Did not remember this provider again today. Review of Systems Review of Systems: CONSTITUTIONAL: Patient denies fevers, chills, sweats and weight changes. EYES: Patient denies any visual symptoms. EARS, NOSE, AND THROAT: No difficulties with hearing. No symptoms of rhinitis or sore throat. CARDIOVASCULAR: Patient denies chest pains, palpitations, orthopnea and paroxysmal nocturnal dyspnea. RESPIRATORY: No dyspnea on exertion, no wheezing or cough. GI: No nausea, vomiting, diarrhea, constipation, abdominal pain, hematochezia or melena. : No urinary hesitancy or dribbling. No nocturia or urinary frequency. No abnormal urethral discharge. MUSCULOSKELETAL: No myalgias or arthralgias. NEUROLOGIC: No chronic headaches, no seizures. Patient denies numbness, tingling or weakness. PSYCHIATRIC: Patient denies problems with mood disturbance. No problems with anxiety. ENDOCRINE: No excessive urination or excessive thirst. DERMATOLOGIC: Patient denies any rashes or skin changes. Physical Exam Physical Exam: Gen: A&O 2 NAD HEENT: NCAT, EOMI, not icteric. External ears normal. No rhinorrhea. Moist mucous membranes. Neck: Supple, full range of motion, no observable masses, No meningeal sign. Lungs: No Respiratory distress. CV: RRR, no edema. Abdomen: Soft, nondistended, No rebound tenderness. MSK: No joint swelling, no redness. Skin: No rashes, petechiae, lesions. Normal color per patient. Neuro: Normal Gait, Grossly intact. Psych: confused, tearful, anxious Results & Data Results & Data Vital Signs (Past 12 Hours) Vital Signs Temp Pulse Resp BP Pulse Ox O2 Del Method 03/02/25 10:30 Room Air 03/02/25 07:37 37.3 C 71 20 146/70 H 97 Room Air Laboratory Results -personally reviewed, creatinine at baseline, Na at baseline, platlets at baseline, no leukocytosis Medications Administered Albuterol (Albut/Ipratrop 3mg/0.5mg Neb 3 Ml Vial) 3 ml NEB Q6R PRN; Protocol PRN Reason: Shortness Of Breath Or Wheezing Stop: 03/31/25 20:27 Last Admin: 03/01/25 20:35 Dose: 3 ml Documented By: GEOFF Aspirin (Aspirin 81 Mg Ectab) [facility] [place] Stop: 03/31/25 08:59 Last Admin: 03/02/25 09:42 Dose: 81 mg Documented By: rory Admin: 03/01/25 08:42 Dose: 81 mg Documented By: rory Atorvastatin Calcium (Atorvastatin 40 Mg Tab) 80 mg PO DAILY [facility] Stop: 03/31/25 08:59 Last Admin: 03/02/25 09:42 Dose: 80 mg Documented By: rory Admin: 03/01/25 08:41 Dose: 80 mg Documented By: rory Azithromycin (Azithromycin 250 Mg Tab) 500 [facility] [place] Stop: 03/06/25 08:59 Last Admin: 03/02/25 09:41 Dose: 500 mg Documented By: rory Admin: 03/01/25 08:41 Dose: 500 mg Documented By: rory Buspirone HCl (Buspirone 5 Mg Tab) 5 mg PO TID PRN PRN Reason: Anxiety/Agitation Stop: 03/31/25 20:59 Last Admin: 03/02/25 09:40 Dose: 5 mg Documented By: rory Admin: 03/01/25 22:08 Dose: 5 mg Documented By: Admin: 03/01/25 14:46 Dose: 5 mg Documented By: rory Carvedilol (Carvedilol 6.25 Mg Tab) 6.25 mg PO BID [facility] Stop: 03/30/25 21:38 Last Admin: 03/02/25 09:41 Dose: 6.25 mg Documented By: rory Admin: 03/01/25 22:08 Dose: 6.25 mg Documented By: Admin: 03/01/25 08:41 Dose: 6.25 mg Documented By: rory Admin: 02/28/25 22:50 Dose: 6.25 mg Documented By: OZIEL Clopidogrel Bisulfate (Clopidogrel Bisulfate 75 Mg Tab) 75 [facility] [place] Stop: 03/31/25 08:59 Last Admin: 03/02/25 09:42 Dose: 75 mg Documented By: rory Admin: 03/01/25 08:41 Dose: 75 mg Documented By: rory Ezetimibe (Ezetimibe 10 Mg Tab) 10 mg PO QAM [facility] Stop: 03/31/25 08:59 Last Admin: 03/02/25 09:42 Dose: 10 mg Documented By: rory Admin: 03/01/25 08:41 Dose: 10 mg Documented By: rory Folic Acid (Folic Acid 1 Mg Tab) 1 mg PO QAM [facility] Stop: 03/31/25 08:59 Last Admin: 03/02/25 09:42 Dose: 1 mg Documented By: rory Admin: 03/01/25 08:41 Dose: 1 mg Documented By: rory Heparin Sodium (Porcine) (Heparin Sod 5,000 Unit/0.5 Ml Vial) 5,000 units SQ Q12 [facility] Stop: 03/30/25 21:38 Last Admin: 03/02/25 09:48 Dose: 5,000 units Documented By: rory Admin: 03/01/25 22:08 Dose: 5,000 units Documented By: Admin: 03/01/25 08:46 Dose: 5,000 units Documented By: rory Admin: 02/28/25 22:50 Dose: 5,000 units Documented By: OZIEL Ceftriaxone Sodium (Rocephin) 1,000 mg in 50 mls @ 100 mls/hr IV Q24H [facility] Stop: 03/05/25 21:59 Last Infusion: 03/01/25 22:44 Dose: Infused Documented By: Admin: 03/01/25 22:08 Dose: 100 mls/hr Documented By: Infusion: 02/28/25 23:56 Dose: Infused Documented By: Admin: 02/28/25 22:50 Dose: 100 mls/hr Documented By: OZIEL Isosorbide Mononitrate (Isosorbide [place] Extended Rel 60 Mg Tabcr) 120 mg PO QAM [facility] Stop: 03/31/25 08:59 Last Admin: 03/02/25 09:40 Dose: 120 mg Documented By: rory Admin: 03/01/25 08:41 Dose: 120 mg Documented By: rory Levetiracetam (Levetiracetam 500 Mg Tab) 500 mg PO BID [facility] Stop: 03/30/25 21:38 Last Admin: 03/02/25 09:40 Dose: 500 mg Documented By: rory Admin: 03/01/25 22:08 Dose: 500 mg Documented By: Admin: 03/01/25 08:41 Dose: 500 mg Documented By: rory Admin: 02/28/25 22:50 Dose: 500 mg Documented By: OZIEL Levothyroxine Sodium (Levothyroxine Sodium 50 Mcg Tablet) 50 mcg PO DAILYBB [facility] Stop: 03/31/25 06:29 Last Admin: 03/02/25 05:57 Dose: 50 mcg Documented By: Admin: 03/01/25 06:22 Dose: 50 mcg Documented By: MARIO Sacubitril/Valsartan (Valsartan/Sacubitril 51/49 Mg Tab) 1 tab PO BID [facility] Stop: 03/31/25 08:59 Last Admin: 03/02/25 09:40 Dose: 1 tab Documented By: rory Admin: 03/01/25 22:08 Dose: 1 tab Documented By: Admin: 03/01/25 08:41 Dose: 1 tab Documented By: rory Sertraline HCl (Sertraline Hcl 50 Mg Tablet) 25 mg PO QAM [facility] Stop: 03/31/25 08:59 Last Admin: 03/02/25 09:41 Dose: 25 mg Documented By: rory Admin: 03/01/25 08:41 Dose: 25 mg Documented By: rory Thiamine HCl (Thiamine Hcl 100 Mg Tab) 100 mg PO QAM [facility] Stop: 03/31/25 08:59 Last Admin: 03/02/25 09:41 Dose: 100 mg Documented By: rory Admin: 03/01/25 08:41 Dose: 100 mg Documented By: rory
[2025-03-02] MEDS: ACETAMINOPHEN 325 MG TAB PO PRN (17:17)
[2025-03-02] MEDS: busPIRone 5 MG TAB PO SCH (20:34)
--- NOTE | 2025-03-03 06:07 | Electrocardiogram Report ---
Test Reason : Blood Pressure : */* mmHG Vent. Rate : 82 BPM Atrial Rate : 82 BPM P-R Int : 130 ms QRS Dur : 168 ms QT Int : 448 ms P-R-T Axes : 46 -62 86 degrees QTcB Int : 523 ms Atrial-sensed ventricular-paced rhythm Abnormal ECG When compared with ECG of 12-Oct-2024 15:38, Vent. rate has increased by 18 bpm Confirmed by Gianni Pepper ([id number]) on 03/03/2025 6:07:03 AM Referred By: REFERRED SELF Confirmed By: Gianni Pepper
[2025-03-03 07:06] LABS: Anion Gap 7.0 (3-11); Blood Urea Nitrogen 10.0 mg/dl (6-23); Calcium 8.8 mg/dl (8.6-10.3); Carbon Dioxide 26.0 mmol/L (21-32); Chloride 103.0 mmol/L (98-107); Creatinine Clr Calc Pharmacy 44.0 ml/min; Glucose 121.0 mg/dl (70-99(Fasting)); Potassium 3.5 mmol/L (3.5-5.1); Sodium 136.0 mmol/L (136-145)
--- NOTE | 2025-03-03 15:51 | Hospitalist Progress Note ---
Date of Service March 03, 2025 Assessment & Plan (1) CAP (community acquired pneumonia): Plan pleasant 69F with PMH dementia, depression, CAD s/p LAD and RCA PCI, NIDDM , AV block s/p Bi-V AICD, Cardiomyopathy with EF 45%, Paroxysmal Ventricular Tachycardia, Paroxysmal Atrial Fibrillation, LBBB, Hypertension, and HLD who presents with cough, inability to care for self. #Moderate Dementia #Failure to Thrive -Lives in trailer by herself - 2 weeks ago and was caregiver for patient -Trailer is in deplorable condition -PCP started process for placement with department of aging -MOCA performed by this provider revealing score of 14/30, not alert to time, very poor short and medium term memory Plan: -patient will need oysterman placement, discussed with case management -PT/OT ordered -labs weekly, patient medically stable for discharge at this time, guardianship pending #Acute Grief #NADEEM -patient grieving loss of 2 weeks ago -complicated by moderate to severe dementia and underlying NADEEM Plan: -continue scheduled buspar 10mg tid -pastoral care consult, appreciate recs #CAP -Productive cough, subjective fevers, chills -CXR bilateral infiltrates. RHonchi bilaterally on exam -Viral panel negative -No O2 requirements -S/p azith in ED Plan -continue CAP coverage with CTX + azith (day 3) -[employer] christa #Alcohol use -Patient denies frquent alcohol use but niece states she drinks around 4 alcoholic beverages daily -Monitor with CIWA protocol and prn ativan #CAD -Stable. follows with cardio as OP -No chest pain. EKG paced rhythm -Continue DAPT, high intensity statin #ICM -EF 50% on most recent TTE -Continue home GDMT #NIDDM -DIet controlled. not on any meds #Hypothyroidism -TSH 0.7 on 02/06/25 -Continue home synthroid #Seizure disorder -COntinue home keppra #OAB -Vesicare not the best medication for someone with dementia -Hold for now #Depression -zoloft I spent a total of 40 minutes in direct patient care, including [id number] time with the patient and/or family, reviewing medical records, ordering and reviewing diagnostic tests, and coordinating care with other healthcare providers. This time includes: history taking, physical examination, medical decision making, counseling, ECG interpretation, imaging interpretation, lab interpretation, orders, and education, excluding time spent in the performance of separately billed services. Admission and Anticipated Discharge Date Admission Date: March 01, 2025 Subjective Patient seen and examined at bedside. Patient doing ok today. Anxious but slightly improved from yesterday. Review of Systems Review of Systems: CONSTITUTIONAL: Patient denies fevers, chills, sweats and weight changes. EYES: Patient denies any visual symptoms. EARS, NOSE, AND THROAT: No difficulties with hearing. No symptoms of rhinitis or sore throat. CARDIOVASCULAR: Patient denies chest pains, palpitations, orthopnea and paroxysmal nocturnal dyspnea. RESPIRATORY: No dyspnea on exertion, no wheezing or cough. GI: No nausea, vomiting, diarrhea, constipation, abdominal pain, hematochezia or melena. : No urinary hesitancy or dribbling. No nocturia or urinary frequency. No abnormal urethral discharge. MUSCULOSKELETAL: No myalgias or arthralgias. NEUROLOGIC: No chronic headaches, no seizures. Patient denies numbness, tingling or weakness. PSYCHIATRIC: Patient denies problems with mood disturbance. No problems with anxiety. ENDOCRINE: No excessive urination or excessive thirst. DERMATOLOGIC: Patient denies any rashes or skin changes. Physical Exam Physical Exam: Gen: A&O 2 NAD HEENT: NCAT, EOMI, not icteric. External ears normal. No rhinorrhea. Moist muc ous membranes. Neck: Supple, full range of motion, no observable masses, No meningeal sign. Lungs: No Respiratory distress. CV: RRR, no edema. Abdomen: Soft, nondistended, No rebound tenderness. MSK: No joint swelling, no redness. Skin: No rashes, petechiae, lesions. Normal color per patient. Neuro: Normal Gait, Grossly intact. Psych: confused Results & Data Results & Data Vital Signs (Past 12 Hours) Vital Signs Temp Pulse Resp BP Pulse Ox O2 Del Method 03/03/25 15:11 36.5 C 73 18 117/68 97 Room Air 03/03/25 11:25 Room Air 03/03/25 07:48 36.5 C 84 18 133/73 93 Room Air Laboratory Results -personally reviewed, creatinine at baseline Medications Administered Acetaminophen (Acetaminophen 325 Mg Tab) 650 mg PO Q4H PRN PRN Reason: pain/fever Stop: 03/30/25 21:38 Last Admin: 03/03/25 13:49 Dose: 650 mg Documented By: Admin: 03/03/25 06:00 Dose: 650 mg Documented By: Admin: 03/03/25 02:02 Dose: 650 mg Documented By: Admin: 03/02/25 17:17 Dose: 650 mg Documented By: rory Albuterol (Albut/Ipratrop 3mg/0.5mg Neb 3 Ml Vial) 3 ml NEB Q6R PRN; Protocol PRN Reason: Shortness Of Breath Or Wheezing Stop: 03/31/25 20:27 Last Admin: 03/01/25 20:35 Dose: 3 ml Documented By: GEOFF Aspirin (Aspirin 81 Mg Ectab) 81 mg PO [facility] Stop: 03/31/25 08:59 Last Admin: 03/03/25 09:22 Dose: 81 mg Documented By: Admin: 03/02/25 09:42 Dose: 81 mg Documented By: rory Admin: 03/01/25 08:42 Dose: 81 mg Documented By: rory Atorvastatin Calcium (Atorvastatin 40 Mg Tab) 80 mg PO DAILY [facility] Stop: 03/31/25 08:59 Last Admin: 03/03/25 09:23 Dose: 80 mg Documented By: Admin: 03/02/25 09:42 Dose: 80 mg Documented By: rory Admin: 03/01/25 08:41 Dose: 80 mg Documented By: rory Azithromycin (Azithromycin 250 Mg Tab) 500 mg PO [facility] Stop: 03/06/25 08:59 Last Admin: 03/03/25 09:24 Dose: 500 mg Documented By: Admin: 03/02/25 09:41 Dose: 500 mg Documented By: rory Admin: 03/01/25 08:41 Dose: 500 mg Documented By: rory Buspirone HCl (Buspirone 5 Mg Tab) 10 mg PO TID [facility] Stop: 04/01/25 20:59 Last Admin: 03/03/25 13:49 Dose: 10 mg Documented By: Admin: 03/03/25 09:25 Dose: 10 mg Documented By: Admin: 03/02/25 20:34 Dose: 10 mg Documented By: STEFFANIE Carvedilol (Carvedilol 6.25 Mg Tab) 6.25 mg PO BID [facility] Stop: 03/30/25 21:38 Last Admin: 03/03/25 09:23 Dose: 6.25 mg Documented By: Admin: 03/02/25 20:34 Dose: 6.25 mg Documented By: Admin: 03/02/25 09:41 Dose: 6.25 mg Documented By: rory Admin: 03/01/25 22:08 Dose: 6.25 mg Documented By: Admin: 03/01/25 08:41 Dose: 6.25 mg Documented By: rory Admin: 02/28/25 22:50 Dose: 6.25 mg Documented By: OZIEL Clopidogrel Bisulfate (Clopidogrel Bisulfate 75 Mg Tab) 75 mg PO [facility] Stop: 03/31/25 08:59 Last Admin: 03/03/25 09:24 Dose: 75 mg Documented By: Admin: 03/02/25 09:42 Dose: 75 mg Documented By: rory Admin: 03/01/25 08:41 Dose: 75 mg Documented By: rory Ezetimibe (Ezetimibe 10 Mg Tab) 10 mg PO [facility] Stop: 03/31/25 08:59 Last Admin: 03/03/25 09:23 Dose: 10 mg Documented By: Admin: 03/02/25 09:42 Dose: 10 mg Documented By: rory Admin: 03/01/25 08:41 Dose: 10 mg Documented By: rory Folic Acid (Folic Acid 1 Mg Tab) 1 mg PO [facility] Stop: 03/31/25 08:59 Last Admin: 03/03/25 09:23 Dose: 1 mg Documented By: Admin: 03/02/25 09:42 Dose: 1 mg Documented By: rory Admin: 03/01/25 08:41 Dose: 1 mg Documented By: rory Heparin Sodium (Porcine) (Heparin Sod 5,000 Unit/0.5 Ml Vial) 5,000 units SQ Q12 [facility] Stop: 03/30/25 21:38 Last Admin: 03/03/25 09:24 Dose: 5,000 units Documented By: Admin: 03/02/25 20:33 Dose: 5,000 units Documented By: Admin: 03/02/25 09:48 Dose: 5,000 units Documented By: rory Admin: 03/01/25 22:08 Dose: 5,000 units Documented By: Admin: 03/01/25 08:46 Dose: 5,000 units Documented By: rory Admin: 02/28/25 22:50 Dose: 5,000 units Documented By: OZIEL Ceftriaxone Sodium (Rocephin) 1,000 mg in 50 mls @ 100 mls/hr IV Q24H [facility] Stop: 03/05/25 21:59 Last Infusion: 03/02/25 21:19 Dose: Infused Documented By: Admin: 03/02/25 20:33 Dose: 100 mls/hr Documented By: Infusion: 03/01/25 22:44 Dose: Infused Documented By: Admin: 03/01/25 22:08 Dose: 100 mls/hr Documented By: Infusion: 02/28/25 23:56 Dose: Infused Documented By: Admin: 02/28/25 22:50 Dose: 100 mls/hr Documented By: OZIEL Isosorbide Mononitrate (Isosorbide [place] Extended Rel 60 Mg Tabcr) 120 mg PO QAM [facility] Stop: 03/31/25 08:59 Last Admin: 03/03/25 09:23 Dose: 120 mg Documented By: Admin: 03/02/25 09:40 Dose: 120 mg Documented By: rory Admin: 03/01/25 08:41 Dose: 120 mg Documented By: rory Levetiracetam (Levetiracetam 500 Mg Tab) 500 mg PO BID [facility] Stop: 03/30/25 21:38 Last Admin: 03/03/25 09:22 Dose: 500 mg Documented By: Admin: 03/02/25 20:34 Dose: 500 mg Documented By: Admin: 03/02/25 09:40 Dose: 500 mg Documented By: rory Admin: 03/01/25 22:08 Dose: 500 mg Documented By: Admin: 03/01/25 08:41 Dose: 500 mg Documented By: rory Admin: 02/28/25 22:50 Dose: 500 mg Documented By: OZIEL Levothyroxine Sodium (Levothyroxine Sodium 50 Mcg Tablet) 50 mcg PO DAILYBB [facility] Stop: 03/31/25 06:29 Last Admin: 03/03/25 05:57 Dose: 50 mcg Documented By: Admin: 03/02/25 05:57 Dose: 50 mcg Documented By: Admin: 03/01/25 06:22 Dose: 50 mcg Documented By: MAROI Sacubitril/Valsartan (Valsartan/Sacubitril 51/49 Mg Tab) 1 tab PO BID [facility] Stop: 03/31/25 08:59 Last Admin: 03/03/25 09:22 Dose: 1 tab Documented By: Admin: 03/02/25 20:34 Dose: 1 tab Documented By: Admin: 03/02/25 09:40 Dose: 1 tab Documented By: rory Admin: 03/01/25 22:08 Dose: 1 tab Documented By: Admin: 03/01/25 08:41 Dose: 1 tab Documented By: rory Sertraline HCl (Sertraline Hcl 50 Mg Tablet) 25 mg PO [facility] Stop: 03/31/25 08:59 Last Admin: 03/03/25 09:24 Dose: 25 mg Documented By: Admin: 03/02/25 09:41 Dose: 25 mg Documented By: rory Admin: 03/01/25 08:41 Dose: 25 mg Documented By: rory Thiamine HCl (Thiamine Hcl 100 Mg Tab) 100 mg PO [facility] Stop: 03/31/25 08:59 Last Admin: 03/03/25 09:23 Dose: 100 mg Documented By: Admin: 03/02/25 09:41 Dose: 100 mg Documented By: rory Admin: 03/01/25 08:41 Dose: 100 mg Documented By: rory
[2025-03-03] MEDS: MELATONIN 3 MG TAB PO PRN (21:47)
[2025-03-04 07:42] LABS: Anion Gap 7.0 (3-11); Blood Urea Nitrogen 13.0 mg/dl (6-23); Calcium 9.1 mg/dl (8.6-10.3); Carbon Dioxide 26.0 mmol/L (21-32); Chloride 102.0 mmol/L (98-107); Creatinine Clr Calc Pharmacy 44.4 ml/min; Glucose 123.0 mg/dl (70-99(Fasting)); Potassium 3.7 mmol/L (3.5-5.1); Sodium 135.0 mmol/L (136-145)
--- NOTE | 2025-03-04 12:35 | Hospitalist Progress Note ---
Date of Service March 04, 2025 Assessment & Plan (1) CAP (community acquired pneumonia): Plan pleasant 69F with PMH dementia, depression, CAD s/p LAD and RCA PCI, NIDDM , AV block s/p Bi-V AICD, Cardiomyopathy with EF 45%, Paroxysmal Ventricular Tachycardia, Paroxysmal Atrial Fibrillation, LBBB, Hypertension, and HLD who presents with cough, inability to care for self. #Moderate Dementia #Failure to Thrive -Lives in trailer by herself - 2 weeks ago and was caregiver for patient -Trailer is in deplorable condition -PCP started process for placement with department of aging -MOCA performed by this provider revealing score of 14/30, not alert to time, very poor short and medium term memory Plan: -patient will need termite control representative placement, discussed with case management -PT/OT ordered -labs weekly, patient medically stable for discharge at this time, guardianship pending #Acute Grief #NADEEM -patient grieving loss of 2 weeks ago -complicated by moderate to severe dementia and underlying NADEEM Plan: -continue scheduled buspar 10mg tid -pastoral care consult, appreciate recs #CAP -Productive cough, subjective fevers, chills -CXR bilateral infiltrates. RHonchi bilaterally on exam -Viral panel negative -No O2 requirements -S/p azith in ED Plan -continue CAP coverage with CTX + azith (day 3) -LOAD DISPATCHER christa #Alcohol use -Patient denies frquent alcohol use but niece states she drinks around 4 alcoholic beverages daily -Monitor with CIWA protocol and prn ativan #CAD -Stable. follows with cardio as OP -No chest pain. EKG paced rhythm -Continue DAPT, high intensity statin #ICM -EF 50% on most recent TTE -Continue home GDMT #NIDDM -DIet controlled. not on any meds #Hypothyroidism -TSH 0.7 on 02/06/25 -Continue home synthroid #Seizure disorder -COntinue home keppra #OAB -Vesicare not the best medication for someone with dementia -Hold for now #Depression -zoloft I spent a total of 45 minutes in direct patient care, including [id number] time with the patient and/or family, reviewing medical records, ordering and reviewing diagnostic tests, and coordinating care with other healthcare providers. This time includes: history taking, physical examination, medical decision making, counseling, ECG interpretation, imaging interpretation, lab interpretation, orders, and education, excluding time spent in the performance of separately billed services. Admission and Anticipated Discharge Date Admission Date: March 01, 2025 Subjective Patient seen and examined at bedside. Patient doing ok today. Feeling better overall. Review of Systems Review of Systems: CONSTITUTIONAL: Patient denies fevers, chills, sweats and weight changes. EYES: Patient denies any visual symptoms. EARS, NOSE, AND THROAT: No difficulties with hearing. No symptoms of rhinitis or sore throat. CARDIOVASCULAR: Patient denies chest pains, palpitations, orthopnea and paroxysmal nocturnal dyspnea. RESPIRATORY: No dyspnea on exertion, no wheezing or cough. GI: No nausea, vomiting, diarrhea, constipation, abdominal pain, hematochezia or melena. : No urinary hesitancy or dribbling. No nocturia or urinary frequency. No abnormal urethral discharge. MUSCULOSKELETAL: No myalgias or arthralgias. NEUROLOGIC: No chronic headaches, no seizures. Patient denies numbness, tingling or weakness. PSYCHIATRIC: Patient denies problems with mood disturbance. No problems with anxiety. ENDOCRINE: No excessive urination or excessive thirst. DERMATOLOGIC: Patient denies any rashes or skin changes. Physical Exam Physical Exam: Gen: A&O 2 NAD HEENT: NCAT, EOMI, not icteric. External ears normal. No rhinorrhea. Moist mucous membranes. Neck: Supple, full range of motion, no observable masses, No meningeal sign. Lungs: No Respiratory distress. CV: RRR, no edema. Abdomen: Soft, nondistended, No rebound tenderness. MSK: No joint swelling, no redness. Skin: No rashes, petechiae, lesions. Normal color per patient. Neuro: Normal Gait, Grossly intact. Psych: confused Results & Data Results & Data Vital Signs (Past 12 Hours) Vital Signs Temp Pulse Resp BP Pulse Ox O2 Del Method 03/04/25 07:41 37.4 C 67 18 134/72 94 Room Air Laboratory Results -personally reviewed, Na at baseline, creatinine at baseline Medications Administered Acetaminophen (Acetaminophen 325 Mg Tab) 650 mg PO Q4H PRN PRN Reason: pain/fever Stop: 03/30/25 21:38 Last Admin: 03/03/25 21:47 Dose: 650 mg Documented By: Admin: 03/03/25 13:49 Dose: 650 mg Documented By: Admin: 03/03/25 06:00 Dose: 650 mg Documented By: Admin: 03/03/25 02:02 Dose: 650 mg Documented By: Admin: 03/02/25 17:17 Dose: 650 mg Documented By: rory Albuterol (Albut/Ipratrop 3mg/0.5mg Neb 3 Ml Vial) 3 ml NEB Q6R PRN; Protocol PRN Reason: Shortness Of Breath Or Wheezing Stop: 03/31/25 20:27 Last Admin: 03/01/25 20:35 Dose: 3 ml Documented By: GEOFF Aspirin (Aspirin 81 Mg Ectab) 81 mg PO [facility] Stop: 03/31/25 08:59 Last Admin: 03/04/25 11:11 Dose: 81 mg Documented By: alisson Admin: 03/03/25 09:22 Dose: 81 mg Documented By: Admin: 03/02/25 09:42 Dose: 81 mg Documented By: rory Admin: 03/01/25 08:42 Dose: 81 mg Documented By: rory Atorvastatin Calcium (Atorvastatin 40 Mg Tab) 80 mg PO DAILY [facility] Stop: 03/31/25 08:59 Last Admin: 03/04/25 11:11 Dose: 80 mg Documented By: alisson Admin: 03/03/25 09:23 Dose: 80 mg Documented By: Admin: 03/02/25 09:42 Dose: 80 mg Documented By: rory Admin: 03/01/25 08:41 Dose: 80 mg Documented By: rory Azithromycin (Azithromycin 250 Mg Tab) 500 mg PO [facility] Stop: 03/06/25 08:59 Last Admin: 03/04/25 11:11 Dose: 500 mg Documented By: alisson Admin: 03/03/25 09:24 Dose: 500 mg Documented By: Admin: 03/02/25 09:41 Dose: 500 mg Documented By: rory Admin: 03/01/25 08:41 Dose: 500 mg Documented By: rory Buspirone HCl (Buspirone 5 Mg Tab) 10 mg PO TID [facility] Stop: 04/01/25 20:59 Last Admin: 03/04/25 11:12 Dose: 10 mg Documented By: alisson Admin: 03/03/25 21:48 Dose: 10 mg Documented By: Admin: 03/03/25 13:49 Dose: 10 mg Documented By: Admin: 03/03/25 09:25 Dose: 10 mg Documented By: Admin: 03/02/25 20:34 Dose: 10 mg Documented By: STEFFANIE Carvedilol (Carvedilol 6.25 Mg Tab) 6.25 mg PO BID [facility] Stop: 03/30/25 21:38 Last Admin: 03/04/25 11:12 Dose: 6.25 mg Documented By: cdc Admin: 03/03/25 21:48 Dose: 6.25 mg Documented By: Admin: 03/03/25 09:23 Dose: 6.25 mg Documented By: Admin: 03/02/25 20:34 Dose: 6.25 mg Documented By: Admin: 03/02/25 09:41 Dose: 6.25 mg Documented By: rory Admin: 03/01/25 22:08 Dose: 6.25 mg Documented By: Admin: 03/01/25 08:41 Dose: 6.25 mg Documented By: rory Admin: 02/28/25 22:50 Dose: 6.25 mg Documented By: OZIEL Clopidogrel Bisulfate (Clopidogrel Bisulfate 75 Mg Tab) [facility] [place]: 03/31/25 08:59 Last Admin: 03/04/25 11:12 Dose: 75 mg Documented By: cdc Admin: 03/03/25 09:24 Dose: 75 mg Documented By: Admin: 03/02/25 09:42 Dose: 75 mg Documented By: rory Admin: 03/01/25 08:41 Dose: 75 mg Documented By: rory Ezetimibe (Ezetimibe 10 Mg Tab) 10 mg PO QA [facility] Stop: 03/31/25 08:59 Last Admin: 03/04/25 11:13 Dose: 10 mg Documented By: cdc Admin: 03/03/25 09:23 Dose: 10 mg Documented By: Admin: 03/02/25 09:42 Dose: 10 mg Documented By: rory Admin: 03/01/25 08:41 Dose: 10 mg Documented By: rory Folic Acid (Folic Acid 1 Mg Tab) [facility] [place] Stop: 03/31/25 08:59 Last Admin: 03/04/25 11:13 Dose: 1 mg Documented By: alisson Admin: 03/03/25 09:23 Dose: 1 mg Documented By: Admin: 03/02/25 09:42 Dose: 1 mg Documented By: rroy Admin: 03/01/25 08:41 Dose: 1 mg Documented By: rory Heparin Sodium (Porcine) (Heparin Sod 5,000 Unit/0.5 Ml Vial) 5,000 units SQ Q12 [facility] Stop: 03/30/25 21:38 Last Admin: 03/04/25 11:13 Dose: 5,000 units Documented By: alisson Admin: 03/03/25 21:47 Dose: 5,000 units Documented By: Admin: 03/03/25 09:24 Dose: 5,000 units Documented By: Admin: 03/02/25 20:33 Dose: 5,000 units Documented By: Admin: 03/02/25 09:48 Dose: 5,000 units Documented By: rory Admin: 03/01/25 22:08 Dose: 5,000 units Documented By: Admin: 03/01/25 08:46 Dose: 5,000 units Documented By: rory Admin: 02/28/25 22:50 Dose: 5,000 units Documented By: OZIEL Ceftriaxone Sodium (Rocephin) 1,000 mg in 50 mls @ 100 mls/hr IV Q24H [facility] Stop: 03/05/25 21:59 Last Infusion: 03/03/25 22:52 Dose: Infused Documented By: Admin: 03/03/25 21:56 Dose: 100 mls/hr Documented By: Infusion: 03/02/25 21:19 Dose: Infused Documented By: Admin: 03/02/25 20:33 Dose: 100 mls/hr Documented By: Infusion: 03/01/25 22:44 Dose: Infused Documented By: Admin: 03/01/25 22:08 Dose: 100 mls/hr Documented By: Infusion: 02/28/25 23:56 Dose: Infused Documented By: Admin: 02/28/25 22:50 Dose: 100 mls/hr Documented By: OZIEL Isosorbide Mononitrate (Isosorbide [place] Extended Rel 60 Mg Tabcr) 120 mg PO QAM [facility]IE Stop: 03/31/25 08:59 Last Admin: 03/04/25 11:13 Dose: 120 mg Documented By: alisson Admin: 03/03/25 09:23 Dose: 120 mg Documented By: Admin: 03/02/25 09:40 Dose: 120 mg Documented By: rory Admin: 03/01/25 08:41 Dose: 120 mg Documented By: rory Levetiracetam (Levetiracetam 500 Mg Tab) 500 mg PO BID [facility] Stop: 03/30/25 21:38 Last Admin: 03/04/25 11:14 Dose: 500 mg Documented By: alisson Admin: 03/03/25 21:48 Dose: 500 mg Documented By: Admin: 03/03/25 09:22 Dose: 500 mg Documented By: Admin: 03/02/25 20:34 Dose: 500 mg Documented By: Admin: 03/02/25 09:40 Dose: 500 mg Documented By: rory Admin: 03/01/25 22:08 Dose: 500 mg Documented By: Admin: 03/01/25 08:41 Dose: 500 mg Documented By: rory Admin: 02/28/25 22:50 Dose: 500 mg Documented By: OZIEL Levothyroxine Sodium (Levothyroxine Sodium 50 Mcg Tablet) 50 mcg PO DAILYBB [facility] Stop: 03/31/25 06:29 Last Admin: 03/04/25 06:11 Dose: 50 mcg Documented By: Admin: 03/03/25 05:57 Dose: 50 mcg Documented By: Admin: 03/02/25 05:57 Dose: 50 mcg Documented By: Admin: 03/01/25 06:22 Dose: 50 mcg Documented By: MARIO Melatonin (Melatonin 3 Mg Tab) 3 mg PO HS PRN PRN Reason: Sleep Stop: 04/02/25 20:51 Last Admin: 03/03/25 21:47 Dose: 3 mg Documented By: TIGIST Sacubitril/Valsartan (Valsartan/Sacubitril 51/49 Mg Tab) 1 tab PO BID [facility] Stop: 03/31/25 08:59 Last Admin: 03/04/25 11:14 Dose: 1 tab Documented By: alisson Admin: 03/03/25 21:48 Dose: 1 tab Documented By: Admin: 03/03/25 09:22 Dose: 1 tab Documented By: Admin: 03/02/25 20:34 Dose: 1 tab Documented By: Admin: 03/02/25 09:40 Dose: 1 tab Documented By: rory Admin: 03/01/25 22:08 Dose: 1 tab Documented By: Admin: 03/01/25 08:41 Dose: 1 tab Documented By: rory Sertraline HCl (Sertraline Hcl 50 Mg Tablet) 25 mg PO [facility] Stop: 03/31/25 08:59 Last Admin: 03/04/25 11:14 Dose: 25 mg Documented By: [facility] [place] Admin: 03/03/25 09:24 Dose: 25 mg Documented By: Admin: 03/02/25 09:41 Dose: 25 mg Documented By: rory Admin: 03/01/25 08:41 Dose: 25 mg Documented By: rory Thiamine HCl (Thiamine Hcl 100 Mg Tab) 100 mg PO [facility] Stop: 03/31/25 08:59 Last Admin: 03/04/25 11:14 Dose: 100 mg Documented By: [facility] [place] Admin: 03/03/25 09:23 Dose: 100 mg Documented By: Admin: 03/02/25 09:41 Dose: 100 mg Documented By: rory Admin: 03/01/25 08:41 Dose: 100 mg Documented By: rory
--- NOTE | 2025-03-05 12:46 | Hospitalist Progress Note ---
Date of Service March 05, 2025 Assessment & Plan (1) CAP (community acquired pneumonia): Plan pleasant 69F with PMH dementia, depression, CAD s/p LAD and RCA PCI, NIDDM , AV block s/p Bi-V AICD, Cardiomyopathy with EF 45%, Paroxysmal Ventricular Tachycardia, Paroxysmal Atrial Fibrillation, LBBB, Hypertension, and HLD who presents with cough, inability to care for self. #Moderate Dementia #Failure to Thrive -Lives in [facility] by herself - 2 weeks ago and was caregiver for patient -Trailer is in deplorable condition -PCP started process for placement with department of aging -MOCA performed by this provider revealing score of 14/30, not alert to time, very poor short and medium term memory Plan: -patient will need retirement placement, discussed with case management -PT/OT ordered -labs weekly, patient medically stable for discharge at this time, guardianship pending -started seroquel 25mg at bedtime last night with good response (more sleep, less anxiety in AM), continue current medications #Acute Grief #NADEEM -patient grieving loss of 2 weeks ago -complicated by moderate to severe dementia and underlying NADEEM Plan: -continue scheduled buspar 10mg tid -pastoral care consult, appreciate recs #CAP -Productive cough, subjective fevers, chills -CXR bilateral infiltrates. RHonchi bilaterally on exam -Viral panel negative -No O2 requirements -S/p azith in ED Plan -continue CAP coverage with CTX + azith (day 4/5) -MICROBIOLOGY MANAGER eval #Alcohol use -Patient denies frequent alcohol use but niece states she drinks around 4 alcoholic beverages daily -Monitor with CIWA protocol and prn ativan #CAD -Stable. follows with cardio as OP -No chest pain. EKG paced rhythm -Continue DAPT, high intensity statin #ICM -EF 50% on most recent TTE -Continue home GDMT #NIDDM -DIet controlled. not on any meds #Hypothyroidism -TSH 0.7 on 02/06/25 -Continue home synthroid #Seizure disorder -COntinue home keppra #OAB -Vesicare not the best medication for someone with dementia -Hold for now #Depression -zoloft I spent a total of 50 minutes in direct patient care, including [id number] time with the patient and/or family, reviewing medical records, ordering and reviewing diagnostic tests, and coordinating care with other healthcare providers. This time includes: history taking, physical examination, medical decision making, counseling, ECG interpretation, imaging interpretation, lab interpretation, orders, and education, excluding time spent in the performance of separately billed services. Admission and Anticipated Discharge Date Admission Date: March 01, 2025 Subjective Patient seen and examined at bedside. Patient improved this morning, slept overnight. Less anxious than prior. Review of Systems Review of Systems: CONSTITUTIONAL: Patient denies fevers, chills, sweats and weight changes. EYES: Patient denies any visual symptoms. EARS, NOSE, AND THROAT: No difficulties with hearing. No symptoms of rhinitis or sore throat. CARDIOVASCULAR: Patient denies chest pains, palpitations, orthopnea and paroxysmal nocturnal dyspnea. RESPIRATORY: No dyspnea on exertion, no wheezing or cough. GI: No nausea, vomiting, diarrhea, constipation, abdominal pain, hematochezia or melena. : No urinary hesitancy or dribbling. No nocturia or urinary frequency. No abnormal urethral discharge. MUSCULOSKELETAL: No myalgias or arthralgias. NEUROLOGIC: No chronic headaches, no seizures. Patient denies numbness, tingling or weakness. PSYCHIATRIC: Patient denies problems with mood disturbance. No problems with anxiety. ENDOCRINE: No excessive urination or excessive thirst. DERMATOLOGIC: Patient denies any rashes or skin changes. Physical Exam Physical Exam: Gen: A&O 2 NAD HEENT: NCAT, EOMI, not icteric. External ears normal. No rhinorrhea. Moist mucous membranes. Neck: Supple, full range of motion, no observable masses, No meningeal sign. Lungs: No Respiratory distress. CV: RRR, no edema. Abdomen: Soft, nondistended, No rebound tenderness. MSK: No joint swelling, no redness. Skin: No rashes, petechiae, lesions. Normal color per patient. Neuro: Normal Gait, Grossly intact. Psych: confused but less anxious appearing today Results & Data Results & Data Vital Signs (Past 12 Hours) Vital Signs Temp Pulse Resp BP Pulse Ox O2 Del Method 03/05/25 07:51 36.8 C 70 18 98/56 L 95 Room Air
--- NOTE | 2025-03-06 16:54 | Hospitalist Progress Note ---
Date of Service March 06, 2025 Assessment & Plan (1) CAP (community acquired pneumonia): Plan pleasant 69F with PMH dementia, depression, CAD s/p LAD and RCA PCI, NIDDM , AV block s/p Bi-V AICD, Cardiomyopathy with EF 45%, Paroxysmal Ventricular Tachycardia, Paroxysmal Atrial Fibrillation, LBBB, Hypertension, and HLD who presents with cough, inability to care for self. #Moderate Dementia #Failure to Thrive -Lives in [facility] by herself - 2 weeks ago and was caregiver for patient -Trailer is in deplorable condition -PCP started process for placement with department of aging -MOCA performed by this provider revealing score of 14/30, not alert to time, very poor short and medium term memory Plan: -patient will need snf placement, discussed with case management -PT/OT ordered -labs weekly, patient medically stable for discharge at this time, guardianship pending -continue seroquel 25mg at bedtime last night with good response (more sleep, less anxiety in AM), continue current medications #Acute Grief #NADEEM -patient grieving loss of 2 weeks ago -complicated by moderate to severe dementia and underlying NADEEM Plan: -continue scheduled buspar 10mg tid -pastoral care consult, appreciate recs #CAP -Productive cough, subjective fevers, chills -CXR bilateral infiltrates. RHonchi bilaterally on exam -Viral panel negative -No O2 requirements -S/p azith in ED -5/5 days of abx finished #Alcohol use -Patient denies frequent alcohol use but niece states she drinks around 4 alcoholic beverages daily -Monitor with CIWA protocol and prn ativan #CAD -Stable. follows with cardio as OP -No chest pain. EKG paced rhythm -Continue DAPT, high intensity statin #ICM -EF 50% on most recent TTE -Continue home GDMT #NIDDM -DIet controlled. not on any meds #Hypothyroidism -TSH 0.7 on 02/06/25 -Continue home synthroid #Seizure disorder -COntinue home keppra #OAB -Vesicare not the best medication for someone with dementia -Hold for now #Depression -zoloft I spent a total of 40 minutes in direct patient care, including [id number] time with the patient and/or family, reviewing medical records, ordering and reviewing diagnostic tests, and coordinating care with other healthcare providers. This time includes: history taking, physical examination, medical decision making, counseling, ECG interpretation, imaging interpretation, lab interpretation, orders, and education, excluding time spent in the performance of separately billed services. Admission and Anticipated Discharge Date Admission Date: March 01, 2025 Subjective Patient seen and examined at bedside. Patient doing well today, walking around the unit. Doing much better with her anxiety. Review of Systems Review of Systems: CONSTITUTIONAL: Patient denies fevers, chills, sweats and weight changes. EYES: Patient denies any visual symptoms. EARS, NOSE, AND THROAT: No difficulties with hearing. No symptoms of rhinitis or sore throat. CARDIOVASCULAR: Patient denies chest pains, palpitations, orthopnea and paroxysmal nocturnal dyspnea. RESPIRATORY: No dyspnea on exertion, no wheezing or cough. GI: No nausea, vomiting, diarrhea, constipation, abdominal pain, hematochezia or melena. : No urinary hesitancy or dribbling. No nocturia or urinary frequency. No abnormal urethral discharge. MUSCULOSKELETAL: No myalgias or arthralgias. NEUROLOGIC: No chronic headaches, no seizures. Patient denies numbness, tingling or weakness. PSYCHIATRIC: Patient denies problems with mood disturbance. No problems with anxiety. ENDOCRINE: No excessive urination or excessive thirst. DERMATOLOGIC: Patient denies any rashes or skin changes. Physical Exam Physical Exam: Gen: A&O 2 NAD HEENT: NCAT, EOMI, not icteric. External ears normal. No rhinorrhea. Moist mucous membranes. Neck: Supple, full range of motion, no observable masses, No meningeal sign. Lungs: No Respiratory distress. CV: RRR, no edema. Abdomen: Soft, nondistended, No rebound tenderness. MSK: No joint swelling, no redness. Skin: No rashes, petechiae, lesions. Normal color per patient. Neuro: Normal Gait, Grossly intact. Psych: confused but less anxious Results & Data Results & Data Vital Signs (Past 12 Hours) Vital Signs Temp Pulse Resp BP Pulse Ox O2 Del Method 03/06/25 15:23 36.7 C 76 20 97/60 L 93 Room Air 03/06/25 14:39 Room Air 03/06/25 08:30 36.9 C 72 16 151/77 H 95 Room Air 03/06/25 08:01 Room Air Medications Administered Acetaminophen (Acetaminophen 325 Mg Tab) 650 mg PO Q4H PRN PRN Reason: pain/fever Stop: 03/30/25 21:38 Last Admin: 03/03/25 21:47 Dose: 650 mg Documented By: Admin: 03/03/25 13:49 Dose: 650 mg Documented By: Admin: 03/03/25 06:00 Dose: 650 mg Documented By: Admin: 03/03/25 02:02 Dose: 650 mg Documented By: Admin: 03/02/25 17:17 Dose: 650 mg Documented By: rory Albuterol (Albut/Ipratrop 3mg/0.5mg Neb 3 Ml Vial) 3 ml NEB Q6R PRN; Protocol PRN Reason: Shortness Of Breath Or Wheezing Stop: 03/31/25 20:27 Last Admin: 03/01/25 20:35 Dose: 3 ml Documented By: GEOFF Aspirin (Aspirin 81 Mg Ectab) 81 mg PO QAM [facility] Stop: 03/31/25 08:59 Last Admin: 03/06/25 09:30 Dose: 81 mg Documented By: Admin: 03/05/25 09:05 Dose: 81 mg Documented By: alisson Admin: 03/04/25 11:11 Dose: 81 mg Documented By: alisson Admin: 03/03/25 09:22 Dose: 81 mg Documented By: Admin: 03/02/25 09:42 Dose: 81 mg Documented By: rory Admin: 03/01/25 08:42 Dose: 81 mg Documented By: rory Atorvastatin Calcium (Atorvastatin 40 Mg Tab) 80 mg PO DAILY [facility] Stop: 03/31/25 08:59 Last Admin: 03/06/25 09:30 Dose: 80 mg Documented By: Admin: 03/05/25 09:06 Dose: 80 mg Documented By: cdc Admin: 03/04/25 11:11 Dose: 80 mg Documented By: alisson Admin: 03/03/25 09:23 Dose: 80 mg Documented By: Admin: 03/02/25 09:42 Dose: 80 mg Documented By: rory Admin: 03/01/25 08:41 Dose: 80 mg Documented By: rory Buspirone HCl (Buspirone 5 Mg Tab) 10 mg PO TID [facility] Stop: 04/01/25 20:59 Last Admin: 03/06/25 14:37 Dose: 10 mg Documented By: Admin: 03/06/25 09:30 Dose: 10 mg Documented By: Admin: 03/05/25 20:42 Dose: 10 mg Documented By: Admin: 03/05/25 14:51 Dose: 10 mg Documented By: cdc Admin: 03/05/25 09:05 Dose: 10 mg Documented By: cdc Admin: 03/04/25 20:36 Dose: 10 mg Documented By: Admin: 03/04/25 17:02 Dose: 10 mg Documented By: cdc Admin: 03/04/25 11:12 Dose: 10 mg Documented By: cdc Admin: 03/03/25 21:48 Dose: 10 mg Documented By: Admin: 03/03/25 13:49 Dose: 10 mg Documented By: Admin: 03/03/25 09:25 Dose: 10 mg Documented By: Admin: 03/02/25 20:34 Dose: 10 mg Documented By: STEFFANIE Carvedilol (Carvedilol 6.25 Mg Tab) 6.25 mg PO BID ARTIE Stop: 03/30/25 21:38 Last Admin: 03/06/25 09:32 Dose: 6.25 mg Documented By: Admin: 03/05/25 20:42 Dose: 6.25 mg Documented By: Admin: 03/05/25 10:20 Dose: Not Given Documented By: cdc Admin: 03/04/25 20:36 Dose: 6.25 mg Documented By: Admin: 03/04/25 11:12 Dose: 6.25 mg Documented By: cdc Admin: 03/03/25 21:48 Dose: 6.25 mg Documented By: Admin: 03/03/25 09:23 Dose: 6.25 mg Documented By: Admin: 03/02/25 20:34 Dose: 6.25 mg Documented By: Admin: 03/02/25 09:41 Dose: 6.25 mg Documented By: rory Admin: 03/01/25 22:08 Dose: 6.25 mg Documented By: Admin: 03/01/25 08:41 Dose: 6.25 mg Documented By: rory Admin: 02/28/25 22:50 Dose: 6.25 mg Documented By: OZIEL Clopidogrel Bisulfate (Clopidogrel Bisulfate 75 Mg Tab) 75 mg PO [facility] Stop: 03/31/25 08:59 Last Admin: 03/06/25 09:32 Dose: 75 mg Documented By: Admin: 03/05/25 09:07 Dose: 75 mg Documented By: cdc Admin: 03/04/25 11:12 Dose: 75 mg Documented By: cdc Admin: 03/03/25 09:24 Dose: 75 mg Documented By: Admin: 03/02/25 09:42 Dose: 75 mg Documented By: rory Admin: 03/01/25 08:41 Dose: 75 mg Documented By: rory Ezetimibe (Ezetimibe 10 Mg Tab) 10 mg PO [facility] Stop: 03/31/25 08:59 Last Admin: 03/06/25 09:30 Dose: 10 mg Documented By: Admin: 03/05/25 09:05 Dose: 10 mg Documented By: cdc Admin: 03/04/25 11:13 Dose: 10 mg Documented By: cdc Admin: 03/03/25 09:23 Dose: 10 mg Documented By: Admin: 03/02/25 09:42 Dose: 10 mg Documented By: rory Admin: 03/01/25 08:41 Dose: 10 mg Documented By: rory Folic Acid (Folic Acid 1 Mg Tab) 1 mg PO [facility] Stop: 03/31/25 08:59 Last Admin: 03/06/25 09:31 Dose: 1 mg Documented By: Admin: 03/05/25 09:07 Dose: 1 mg Documented By: cdc Admin: 03/04/25 11:13 Dose: 1 mg Documented By: cdc Admin: 03/03/25 09:23 Dose: 1 mg Documented By: Admin: 03/02/25 09:42 Dose: 1 mg Documented By: rory Admin: 03/01/25 08:41 Dose: 1 mg Documented By: rory Heparin Sodium (Porcine) (Heparin Sod 5,000 Unit/0.5 Ml Vial) 5,000 units SQ Q12 ARTIE Stop: 03/30/25 21:38 Last Admin: 03/06/25 09:34 Dose: 5,000 units Documented By: Admin: 03/05/25 20:42 Dose: 5,000 units Documented By: [facility] Admin: 03/05/25 10:38 Dose: 5,000 units Documented By: cdc Admin: 03/04/25 20:36 Dose: 5,000 units Documented By: Admin: 03/04/25 11:13 Dose: 5,000 units Documented By: cdc Admin: 03/03/25 21:47 Dose: 5,000 units Documented By: Admin: 03/03/25 09:24 Dose: 5,000 units Documented By: Admin: 03/02/25 20:33 Dose: 5,000 units Documented By: Admin: 03/02/25 09:48 Dose: 5,000 units Documented By: rory Admin: 03/01/25 22:08 Dose: 5,000 units Documented By: Admin: 03/01/25 08:46 Dose: 5,000 units Documented By: rory Admin: 02/28/25 22:50 Dose: 5,000 units Documented By: OZIEL Isosorbide Mononitrate (Isosorbide [place]kt[place]ha Extended Rel 60 Mg Tabcr) 120 mg PO QAM ARTIE Stop: 03/31/25 08:59 Last Admin: 03/06/25 09:31 Dose: 120 mg Documented By: Admin: 03/05/25 10:20 Dose: Not Given Documented By: alisson Admin: 03/04/25 11:13 Dose: 120 mg Documented By: alisson Admin: 03/03/25 09:23 Dose: 120 mg Documented By: Admin: 03/02/25 09:40 Dose: 120 mg Documented By: rory Admin: 03/01/25 08:41 Dose: 120 mg Documented By: rory Levetiracetam (Levetiracetam 500 Mg Tab) 500 mg PO BID ARTIE Stop: 03/30/25 21:38 Last Admin: 03/06/25 09:32 Dose: 500 mg Documented By: Admin: 03/05/25 20:42 Dose: 500 mg Documented By: Admin: 03/05/25 09:05 Dose: 500 mg Documented By: cdc Admin: 03/04/25 20:36 Dose: 500 mg Documented By: Admin: 03/04/25 11:14 Dose: 500 mg Documented By: alisson Admin: 03/03/25 21:48 Dose: 500 mg Documented By: Admin: 03/03/25 09:22 Dose: 500 mg Documented By: Admin: 03/02/25 20:34 Dose: 500 mg Documented By: Admin: 03/02/25 09:40 Dose: 500 mg Documented By: rory Admin: 03/01/25 22:08 Dose: 500 mg Documented By: Admin: 03/01/25 08:41 Dose: 500 mg Documented By: rory Admin: 02/28/25 22:50 Dose: 500 mg Documented By: OZIEL Levothyroxine Sodium (Levothyroxine Sodium 50 Mcg Tablet) 50 mcg PO DAILYBB ARTIE Stop: 03/31/25 06:29 Last Admin: 03/06/25 05:39 Dose: 50 mcg Documented By: Admin: 03/05/25 05:53 Dose: 50 mcg Documented By: Admin: 03/04/25 06:11 Dose: 50 mcg Documented By: Admin: 03/03/25 05:57 Dose: 50 mcg Documented By: Admin: 03/02/25 05:57 Dose: 50 mcg Documented By: Admin: 03/01/25 06:22 Dose: 50 mcg Documented By: MARIO Melatonin (Melatonin 3 Mg Tab) 3 mg PO HS PRN PRN Reason: Sleep Stop: 04/02/25 20:51 Last Admin: 03/05/25 20:42 Dose: 3 mg Documented By: Admin: 03/03/25 21:47 Dose: 3 mg Documented By: TIGIST Quetiapine Fumarate (Quetiapine Fumarate 25 Mg Tablet) 25 mg PO HS ARTIE Stop: 04/03/25 20:59 Last Admin: 03/05/25 20:42 Dose: 25 mg Documented By: Admin: 03/04/25 20:36 Dose: 25 mg Documented By: TIGIST Sacubitril/Valsartan (Valsartan/Sacubitril 51/49 Mg Tab) 1 tab PO BID ARTIE Stop: 03/31/25 08:59 Last Admin: 03/06/25 09:30 Dose: 1 tab Documented By: Admin: 03/05/25 20:42 Dose: 1 tab Documented By: Admin: 03/05/25 09:04 Dose: 1 tab Documented By: alisson Admin: 03/04/25 20:36 Dose: 1 tab Documented By: Admin: 03/04/25 11:14 Dose: 1 tab Documented By: cdc Admin: 03/03/25 21:48 Dose: 1 tab Documented By: Admin: 03/03/25 09:22 Dose: 1 tab Documented By: Admin: 03/02/25 20:34 Dose: 1 tab Documented By: Admin: 03/02/25 09:40 Dose: 1 tab Documented By: rory Admin: 03/01/25 22:08 Dose: 1 tab Documented By: Admin: 03/01/25 08:41 Dose: 1 tab Documented By: rory Sertraline HCl (Sertraline Hcl 50 Mg Tablet) 25 mg PO QA ARTIE Stop: 03/31/25 08:59 Last Admin: 03/06/25 09:31 Dose: 25 mg Documented By: Admin: 03/05/25 09:05 Dose: 25 mg Documented By: alisson Admin: 03/04/25 11:14 Dose: 25 mg Documented By: alisson Admin: 03/03/25 09:24 Dose: 25 mg Documented By: Admin: 03/02/25 09:41 Dose: 25 mg Documented By: rory Admin: 03/01/25 08:41 Dose: 25 mg Documented By: rory Thiamine HCl (Thiamine Hcl 100 Mg Tab) 100 mg PO QA ARTIE Stop: 03/31/25 08:59 Last Admin: 03/06/25 09:32 Dose: 100 mg Documented By: Admin: 03/05/25 09:07 Dose: 100 mg Documented By: alisson Admin: 03/04/25 11:14 Dose: 100 mg Documented By: alisson Admin: 03/03/25 09:23 Dose: 100 mg Documented By: Admin: 03/02/25 09:41 Dose: 100 mg Documented By: rory Admin: 03/01/25 08:41 Dose: 100 mg Documented By: rory
[2025-03-07] MEDS: LORazepam 0.5 MG TAB PO STA (02:41)
--- NOTE | 2025-03-07 16:00 | Hospitalist Progress Note ---
Date of Service March 07, 2025 Assessment & Plan (1) CAP (community acquired pneumonia): Plan pleasant 69F with PMH dementia, depression, CAD s/p LAD and RCA PCI, NIDDM , AV block s/p Bi-V AICD, Cardiomyopathy with EF 45%, Paroxysmal Ventricular Tachycardia, Paroxysmal Atrial Fibrillation, LBBB, Hypertension, and HLD who presents with cough, inability to care for self. #Moderate Dementia #Failure to Thrive -[place] - 3 weeks ago and was caregiver for patient -Trailer is in deplorable condition -PCP started process for placement with department of aging -MOCA performed by this provider revealing score of 14/30, not alert to time, very poor short and medium term memory Plan: -patient will need [place] [facility], discussed with case management -PT/OT ordered -labs weekly, patient medically stable for discharge at this time, guardianship pending -precert allegedly denied at SNF, awaiting new options -continue seroquel 25mg at bedtime last night with good response (more sleep, less anxiety in AM), continue current medications #Acute Grief #NADEEM -patient grieving loss of 2 weeks ago -complicated by moderate to severe dementia and underlying NADEEM Plan: -continue scheduled buspar 10mg tid -pastoral care consult, appreciate recs #CAP -CXR bilateral infiltrates. RHonchi bilaterally on exam -Viral panel negative -S/p azith in ED -5/5 days of abx finished #Alcohol Use -Patient denies frequent alcohol use but niece states she drinks around 4 alcoholic beverages daily -outside of withdrawal window #CAD -Stable. follows with cardio as OP -Continue DAPT, high intensity statin #ICM -EF 50% on most recent TTE -Continue home GDMT #NIDDM -DIet controlled. not on any meds #Hypothyroidism -TSH 0.7 on 02/06/25 -Continue home synthroid #Seizure disorder -COntinue home keppra #OAB -Vesicare not the best medication for someone with dementia -Hold for now #Depression -zoloft I spent a total of 40 minutes in direct patient care, including [id number] time with the patient and/or family, reviewing medical records, ordering and reviewing diagnostic tests, and coordinating care with other healthcare providers. This time includes: history taking, physical examination, medical decision making, counseling, ECG interpretation, imaging interpretation, lab interpretation, orders, and education, excluding time spent in the performance of separately billed services. Admission and Anticipated Discharge Date Admission Date: March 01, 2025 Subjective Patient seen and examined at bedside. Patient doing well today overall, scared about where she is going after this. Pleased with the medication changes. Review of Systems Review of Systems: CONSTITUTIONAL: Patient denies fevers, chills, sweats and weight changes. EYES: Patient denies any visual symptoms. EARS, NOSE, AND THROAT: No difficulties with hearing. No symptoms of rhinitis or sore throat. CARDIOVASCULAR: Patient denies chest pains, palpitations, orthopnea and paroxysmal nocturnal dyspnea. RESPIRATORY: No dyspnea on exertion, no wheezing or cough. GI: No nausea, vomiting, diarrhea, constipation, abdominal pain, hematochezia or melena. : No urinary hesitancy or dribbling. No nocturia or urinary frequency. No abnormal urethral discharge. MUSCULOSKELETAL: No myalgias or arthralgias. NEUROLOGIC: No chronic headaches, no seizures. Patient denies numbness, tingling or weakness. PSYCHIATRIC: Patient denies problems with mood disturbance. No problems with anxiety. ENDOCRINE: No excessive urination or excessive thirst. DERMATOLOGIC: Patient denies any rashes or skin changes. Physical Exam Physical Exam: Gen: A&O 2 NAD HEENT: NCAT, EOMI, not icteric. External ears normal. No rhinorrhea. Moist mucous membranes. Neck: Supple, full range of motion, no observable masses, No meningeal sign. Lungs: No Respiratory distress. CV: RRR, no edema. Abdomen: Soft, nondistended, No rebound tenderness. MSK: No joint swelling, no redness. Skin: No rashes, petechiae, lesions. Normal color per patient. Neuro: Normal Gait, Grossly intact. Psych: confused but less anxious Results & Data Results & Data Vital Signs (Past 12 Hours) Vital Signs Temp Pulse Resp BP Pulse Ox O2 Del Method 03/07/25 10:05 Room Air 03/07/25 08:48 36.5 C 76 16 129/73 92 Room Air Medications Administered Acetaminophen (Acetaminophen 325 Mg Tab) 650 mg PO Q4H PRN PRN Reason: pain/fever Stop: 03/30/25 21:38 Last Admin: 03/03/25 21:47 Dose: 650 mg Documented By: Admin: 03/03/25 13:49 Dose: 650 mg Documented By: Admin: 03/03/25 06:00 Dose: 650 mg Documented By: Admin: 03/03/25 02:02 Dose: 650 mg Documented By: Admin: 03/02/25 17:17 Dose: 650 mg Documented By: rory Albuterol (Albut/Ipratrop 3mg/0.5mg Neb 3 Ml Vial) 3 ml NEB Q6R PRN; Protocol PRN Reason: Shortness Of Breath Or Wheezing Stop: 03/31/25 20:27 Last Admin: 03/01/25 20:35 Dose: 3 ml Documented By: GEOFF Aspirin (Aspirin 81 Mg Ectab) [facility] [place] Stop: 03/31/25 08:59 Last Admin: 03/07/25 09:28 Dose: 81 mg Documented By: Admin: 03/06/25 09:30 Dose: 81 mg Documented By: Admin: 03/05/25 09:05 Dose: 81 mg Documented By: alisson Admin: 03/04/25 11:11 Dose: 81 mg Documented By: alisson Admin: 03/03/25 09:22 Dose: 81 mg Documented By: Admin: 03/02/25 09:42 Dose: 81 mg Documented By: rory Admin: 03/01/25 08:42 Dose: 81 mg Documented By: rory Atorvastatin Calcium (Atorvastatin 40 Mg Tab) 80 mg PO DAILY [facility] Stop: 03/31/25 08:59 Last Admin: 03/07/25 09:28 Dose: 80 mg Documented By: Admin: 03/06/25 09:30 Dose: 80 mg Documented By: Admin: 03/05/25 09:06 Dose: 80 mg Documented By: cdc Admin: 03/04/25 11:11 Dose: 80 mg Documented By: cdc Admin: 03/03/25 09:23 Dose: 80 mg Documented By: Admin: 03/02/25 09:42 Dose: 80 mg Documented By: rory Admin: 03/01/25 08:41 Dose: 80 mg Documented By: rory Buspirone HCl (Buspirone 5 Mg Tab) 10 mg PO TID [facility] Stop: 04/01/25 20:59 Last Admin: 03/07/25 13:05 Dose: 10 mg Documented By: BREAKING MACHINE OPERATOR Admin: 03/07/25 09:27 Dose: 10 mg Documented By: BREAKING MACHINE OPERATOR Admin: 03/06/25 21:27 Dose: 10 mg Documented By: Admin: 03/06/25 14:37 Dose: 10 mg Documented By: Admin: 03/06/25 09:30 Dose: 10 mg Documented By: Admin: 03/05/25 20:42 Dose: 10 mg Documented By: Admin: 03/05/25 14:51 Dose: 10 mg Documented By: cdc Admin: 03/05/25 09:05 Dose: 10 mg Documented By: cdc Admin: 03/04/25 20:36 Dose: 10 mg Documented By: Admin: 03/04/25 17:02 Dose: 10 mg Documented By: cdc Admin: 03/04/25 11:12 Dose: 10 mg Documented By: cdc Admin: 03/03/25 21:48 Dose: 10 mg Documented By: Admin: 03/03/25 13:49 Dose: 10 mg Documented By: Admin: 03/03/25 09:25 Dose: 10 mg Documented By: Admin: 03/02/25 20:34 Dose: 10 mg Documented By: STEFFANIE Carvedilol (Carvedilol 6.25 Mg Tab) 6.25 mg PO BID ARTIE Stop: 03/30/25 21:38 Last Admin: 03/07/25 09:30 Dose: 6.25 mg Documented By: BREAKING MACHINE OPERATOR Admin: 03/06/25 21:28 Dose: 6.25 mg Documented By: Admin: 03/06/25 09:32 Dose: 6.25 mg Documented By: Admin: 03/05/25 20:42 Dose: 6.25 mg Documented By: Admin: 03/05/25 10:20 Dose: Not Given Documented By: cdc Admin: 03/04/25 20:36 Dose: 6.25 mg Documented By: Admin: 03/04/25 11:12 Dose: 6.25 mg Documented By: cdc Admin: 03/03/25 21:48 Dose: 6.25 mg Documented By: Admin: 03/03/25 09:23 Dose: 6.25 mg Documented By: Admin: 03/02/25 20:34 Dose: 6.25 mg Documented By: Admin: 03/02/25 09:41 Dose: 6.25 mg Documented By: rory Admin: 03/01/25 22:08 Dose: 6.25 mg Documented By: Admin: 03/01/25 08:41 Dose: 6.25 mg Documented By: rory Admin: 02/28/25 22:50 Dose: 6.25 mg Documented By: OZIEL Clopidogrel Bisulfate (Clopidogrel Bisulfate 75 Mg Tab) 75 mg PO QA ARTIE Stop: 03/31/25 08:59 Last Admin: 03/07/25 09:26 Dose: 75 mg Documented By: Admin: 03/06/25 09:32 Dose: 75 mg Documented By: Admin: 03/05/25 09:07 Dose: 75 mg Documented By: cdc Admin: 03/04/25 11:12 Dose: 75 mg Documented By: cdc Admin: 03/03/25 09:24 Dose: 75 mg Documented By: Admin: 03/02/25 09:42 Dose: 75 mg Documented By: rory Admin: 03/01/25 08:41 Dose: 75 mg Documented By: rory Ezetimibe (Ezetimibe 10 Mg Tab) 10 mg PO QA ARTIE Stop: 03/31/25 08:59 Last Admin: 03/07/25 09:27 Dose: 10 mg Documented By: Admin: 03/06/25 09:30 Dose: 10 mg Documented By: Admin: 03/05/25 09:05 Dose: 10 mg Documented By: cdc Admin: 03/04/25 11:13 Dose: 10 mg Documented By: cdc Admin: 03/03/25 09:23 Dose: 10 mg Documented By: Admin: 03/02/25 09:42 Dose: 10 mg Documented By: rory Admin: 03/01/25 08:41 Dose: 10 mg Documented By: rory Folic Acid (Folic Acid 1 Mg Tab) 1 mg PO QA ARTIE Stop: 03/31/25 08:59 Last Admin: 03/07/25 09:28 Dose: 1 mg Documented By: Admin: 03/06/25 09:31 Dose: 1 mg Documented By: Admin: 03/05/25 09:07 Dose: 1 mg Documented By: cdc Admin: 03/04/25 11:13 Dose: 1 mg Documented By: cdc Admin: 03/03/25 09:23 Dose: 1 mg Documented By: Admin: 03/02/25 09:42 Dose: 1 mg Documented By: rory Admin: 03/01/25 08:41 Dose: 1 mg Documented By: rory Heparin Sodium (Porcine) (Heparin Sod 5,000 Unit/0.5 Ml Vial) 5,000 units SQ Q12 ARTIE Stop: 03/30/25 21:38 Last Admin: 03/07/25 09:29 Dose: 5,000 units Documented By: Admin: 03/06/25 21:33 Dose: 5,000 units Documented By: Admin: 03/06/25 09:34 Dose: 5,000 units Documented By: Admin: 03/05/25 20:42 Dose: 5,000 units Documented By: Admin: 03/05/25 10:38 Dose: 5,000 units Documented By: alisson Admin: 03/04/25 20:36 Dose: 5,000 units Documented By: Admin: 03/04/25 11:13 Dose: 5,000 units Documented By: cdc Admin: 03/03/25 21:47 Dose: 5,000 units Documented By: Admin: 03/03/25 09:24 Dose: 5,000 units Documented By: Admin: 03/02/25 20:33 Dose: 5,000 units Documented By: Admin: 03/02/25 09:48 Dose: 5,000 units Documented By: rory Admin: 03/01/25 22:08 Dose: 5,000 units Documented By: Admin: 03/01/25 08:46 Dose: 5,000 units Documented By: rory Admin: 02/28/25 22:50 Dose: 5,000 units Documented By: OZIEL Isosorbide Mononitrate (Isosorbide [place] Extended Rel 60 Mg Tabcr) 120 mg PO QAM ARTIE Stop: 03/31/25 08:59 Last Admin: 03/07/25 09:25 Dose: 120 mg Documented By: Admin: 03/06/25 09:31 Dose: 120 mg Documented By: Admin: 03/05/25 10:20 Dose: Not Given Documented By: cdc Admin: 03/04/25 11:13 Dose: 120 mg Documented By: cdc Admin: 03/03/25 09:23 Dose: 120 mg Documented By: Admin: 03/02/25 09:40 Dose: 120 mg Documented By: rory Admin: 03/01/25 08:41 Dose: 120 mg Documented By: rory Levetiracetam (Levetiracetam 500 Mg Tab) 500 mg PO BID ARTIE Stop: 03/30/25 21:38 Last Admin: 03/07/25 09:29 Dose: 500 mg Documented By: Admin: 03/06/25 21:28 Dose: 500 mg Documented By: Admin: 03/06/25 09:32 Dose: 500 mg Documented By: Admin: 03/05/25 20:42 Dose: 500 mg Documented By: Admin: 03/05/25 09:05 Dose: 500 mg Documented By: alisson Admin: 03/04/25 20:36 Dose: 500 mg Documented By: Admin: 03/04/25 11:14 Dose: 500 mg Documented By: alisson Admin: 03/03/25 21:48 Dose: 500 mg Documented By: Admin: 03/03/25 09:22 Dose: 500 mg Documented By: Admin: 03/02/25 20:34 Dose: 500 mg Documented By: Admin: 03/02/25 09:40 Dose: 500 mg Documented By: rory Admin: 03/01/25 22:08 Dose: 500 mg Documented By: Admin: 03/01/25 08:41 Dose: 500 mg Documented By: rory Admin: 02/28/25 22:50 Dose: 500 mg Documented By: OZIEL Levothyroxine Sodium (Levothyroxine Sodium 50 Mcg Tablet) 50 mcg PO DAILYBB ARTIE Stop: 03/31/25 06:29 Last Admin: 03/07/25 06:28 Dose: 50 mcg Documented By: Admin: 03/06/25 05:39 Dose: 50 mcg Documented By: Admin: 03/05/25 05:53 Dose: 50 mcg Documented By: Admin: 03/04/25 06:11 Dose: 50 mcg Documented By: Admin: 03/03/25 05:57 Dose: 50 mcg Documented By: Admin: 03/02/25 05:57 Dose: 50 mcg Documented By: Admin: 03/01/25 06:22 Dose: 50 mcg Documented By: MARIO Melatonin (Melatonin 3 Mg Tab) 3 mg PO HS PRN PRN Reason: Sleep Stop: 04/02/25 20:51 Last Admin: 03/05/25 20:42 Dose: 3 mg Documented By: Admin: 03/03/25 21:47 Dose: 3 mg Documented By: TIGIST Quetiapine Fumarate (Quetiapine Fumarate 25 Mg Tablet) 25 mg PO HS ARTIE Stop: 04/03/25 20:59 Last Admin: 03/06/25 21:28 Dose: 25 mg Documented By: Admin: 03/05/25 20:42 Dose: 25 mg Documented By: Admin: 03/04/25 20:36 Dose: 25 mg Documented By: TIGIST Sacubitril/Valsartan (Valsartan/Sacubitril 51/49 Mg Tab) 1 tab PO BID ARTIE Stop: 03/31/25 08:59 Last Admin: 03/07/25 09:25 Dose: 1 tab Documented By: BREAKING MACHINE OPERATOR Admin: 03/06/25 21:27 Dose: 1 tab Documented By: Admin: 03/06/25 09:30 Dose: 1 tab Documented By: Admin: 03/05/25 20:42 Dose: 1 tab Documented By: Admin: 03/05/25 09:04 Dose: 1 tab Documented By: [facility] [place] [facility] Admin: 03/04/25 20:36 Dose: 1 tab Documented By: Admin: 03/04/25 11:14 Dose: 1 tab Documented By: alisson Admin: 03/03/25 21:48 Dose: 1 tab Documented By: Admin: 03/03/25 09:22 Dose: 1 tab Documented By: Admin: 03/02/25 20:34 Dose: 1 tab Documented By: Admin: 03/02/25 09:40 Dose: 1 tab Documented By: rory Admin: 03/01/25 22:08 Dose: 1 tab Documented By: Admin: 03/01/25 08:41 Dose: 1 tab Documented By: rory Sertraline HCl (Sertraline Hcl 50 Mg Tablet) 25 mg PO QAM ARTIE Stop: 03/31/25 08:59 Last Admin: 03/07/25 09:27 Dose: 25 mg Documented By: Admin: 03/06/25 09:31 Dose: 25 mg Documented By: Admin: 03/05/25 09:05 Dose: 25 mg Documented By: cdc Admin: 03/04/25 11:14 Dose: 25 mg Documented By: cdc Admin: 03/03/25 09:24 Dose: 25 mg Documented By: Admin: 03/02/25 09:41 Dose: 25 mg Documented By: rory Admin: 03/01/25 08:41 Dose: 25 mg Documented By: rory Thiamine HCl (Thiamine Hcl 100 Mg Tab) 100 mg PO QA ARTIE Stop: 03/31/25 08:59 Last Admin: 03/07/25 09:28 Dose: 100 mg Documented By: BREAKING MACHINE OPERATOR Admin: 03/06/25 09:32 Dose: 100 mg Documented By: Admin: 03/05/25 09:07 Dose: 100 mg Documented By: cdc Admin: 03/04/25 11:14 Dose: 100 mg Documented By: cdc Admin: 03/03/25 09:23 Dose: 100 mg Documented By: Admin: 03/02/25 09:41 Dose: 100 mg Documented By: rory Admin: 03/01/25 08:41 Dose: 100 mg Documented By: rory
[2025-03-08] MEDS: LORazepam 0.5 MG TAB PO STA (04:31)
[2025-03-08 08:24] LABS: Anion Gap 6.0 (3-11); Blood Urea Nitrogen 29.0 mg/dl (6-23); Calcium 9.4 mg/dl (8.6-10.3); Carbon Dioxide 26.0 mmol/L (21-32); Chloride 104.0 mmol/L (98-107); Creatinine Clr Calc Pharmacy 40.6 ml/min; Glucose 121.0 mg/dl (70-99(Fasting)); Potassium 4.0 mmol/L (3.5-5.1); Sodium 136.0 mmol/L (136-145)
[2025-03-08] MEDS: SERTRALINE HCL 50 MG TABLET PO SCH (08:53)
[2025-03-08] MEDS: LORazepam 0.5 MG TAB PO ONE (15:26)
[2025-03-08] MEDS: LORazepam 0.5 MG TAB ONE (16:05)
[2025-03-08 23:06] VITALS: RESP 18
[2025-03-09 07:11] LABS: Hematocrit (blood only) 31.1 % (37.0-47.0); Hemoglobin 10.1 g/dl (12.0-16.0); Mean Corpuscular Hemoglobin 28.1 pg (25.0-34.0); Mean Corpuscular Volume 86.4 fL (80.0-100.0); Platelet Count 127 K/uL (130-400); RDW Standard Deviation 46.5 fL (36.4-46.3); Red Blood Count 3.60 M/uL (4.20-5.40); White Blood Count 3.65 K/ul (4.8-10.8)
[2025-03-09 07:28] LABS: Anion Gap 6.0 (3-11); Blood Urea Nitrogen 36.0 mg/dl (6-23); Calcium 9.1 mg/dl (8.6-10.3); Carbon Dioxide 24.0 mmol/L (21-32); Chloride 106.0 mmol/L (98-107); Creatinine Clr Calc Pharmacy 35.5 ml/min; Glucose 126.0 mg/dl (70-99(Fasting)); Potassium 4.0 mmol/L (3.5-5.1); Sodium 136.0 mmol/L (136-145)
[2025-03-09 07:50] VITALS: PULSE 76; TEMP 97.7; O2SAT 91
--- NOTE | 2025-03-09 09:49 | Hospitalist Progress Note ---
Date of Service March 09, 2025 Late documentation for 03/08/25 Assessment & Plan (1) CAP (community acquired pneumonia): Plan pleasant 69F with PMH dementia, depression, CAD s/p LAD and RCA PCI, NIDDM , AV block s/p Bi-V AICD, Cardiomyopathy with EF 45%, Paroxysmal Ventricular T achycardia, Paroxysmal Atrial Fibrillation, LBBB, Hypertension, and HLD who presents with cough, inability to care for self. Moderate Dementia Failure to Thrive -Lives in trailer by herself - 3 weeks ago and was caregiver for patient -Trailer is in deplorable condition -PCP started process for placement with department of aging -MOCA performed by this provider revealing score of 14/30, not alert to time, very poor short and medium term memory Plan: -patient will need [facility] placement, discussed with case management -PT/OT ordered -continue seroquel 25mg at bedtime No acute issues, stable for discharge waiting for placement Case management on board Acute Grief NADEEM -patient grieving loss of 2 weeks ago -complicated by moderate to severe dementia and underlying NADEEM Plan: -continue scheduled buspar 10mg tid -pastoral care consult, appreciate recs CAP -CXR bilateral infiltrates. RHonchi bilaterally on exam -Viral panel negative -S/p azith in ED Completed antibiotic course Alcohol Use -Patient denies frequent alcohol use but niece states she drinks around 4 alcoholic beverages daily --No signs of withdrawal CAD -Stable. follows with cardio as OP -Continue DAPT, high intensity statin ICM -EF 50% on most recent TTE -Continue home GDMT NIDDM -DIet controlled. not on any meds Hypothyroidism -TSH 0.7 on 02/06/25 -Continue home levothyroxine Seizure disorder -Continue home keppra No issues while hospitalized Overactive bladder - On Vesicare Depression -zoloft DVT Px: Heparin SQ CODE STATUS DNI DNR Disposition SNF Admission and Anticipated Discharge Date Admission Date: March 01, 2025 Subjective Patient is seen and examined at bedside Eager to get discharged Offers no new complaints Stable for discharge, awaiting placement Review of Systems Review of Systems: All systems reviewed & are unremarkable except as noted in Subjective Physical Exam Physical Exam: Physical Exam: Vitals signs as noted above General Appearance: Thin, frail, no apparent distress Head: normocephalic, Atraumatic Eyes: normal inspection, EOMI Neck: supple, Trachea midline Respiratory/Chest: Normal breath sounds, CTA, No accessory muscle use Cardiovascular: S1, S2, No murmur Abdomen/GI:Soft, Non tender, Bowel sounds present Extremities/Musculoskeletal:normal inspection, no edema Neurologic/Psych:AAOX2, grossly no focal neurological deficits,+ dementia Skin: normal color, warm Results & Data Results & Data Vital Signs (Past 12 Hours) Vital Signs Temp Pulse Resp BP BP Pulse Ox O2 Del Method 03/09/25 07:49 36.5 C 76 18 125/73 91 Room Air 03/08/25 22:32 36.3 C L 62 18 106/60 95 Room Air Laboratory Results Short CBC 03/09/25 Range/Units 06:29 WBC 3.65 L (4.8-10.8) K/ul Hgb 10.1 L (12.0-16.0) g/dl Hct 31.1 L (37.0-47.0) % Plt Count 127 L (130-400) K/uL BMP 03/09/25 06:29 Sodium 136 Potassium 4.0 Chloride 106 Carbon Dioxide 24 BUN 36 H Creatinine 1.19 Glucose 126 H Calcium 9.1
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
[2025-03-09 14:39] VITALS: BP 106/60
== END 2025-03-09 15:26 | DRG 195 ==
LOC: EDINP 15:45 → ED 15:45 → SUATTDRO 18:12 → 2N 21:39 → SUATTDRO 03-01 13:47